=== PATIENT | female | born 1965 | race Caucasian/White ===

== ENCOUNTER 2016-08-27 13:48 | Outpatient (RCR) | payer MEDICARE, MEDICAID ==
--- OUTSIDE RECORDS SUMMARY | 2016-08-13 13:02 | XMS REPORT | Continuity of Care Document ---
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 04/13/14 10:33pm Resuscitation Status Full Code 04/13/14 10:33pm Chief Complaint and Reason for Visit Chief Complaint HHNK, RHABDOMYOLYSIS, PYELONEPHRITIS Reason for Visit Pyelonephritis Rhabdomyolysis Pyelonephritis Hyperglycemic hyperosmolar nonketotic coma Hyperglycemic hyperosmolar nonketotic coma Problems Medical Problems Problem Onset Date Status Urinary tract infectious disease Unknown Active Pancreatitis Unknown Active Pyelonephritis Unknown Active Rhabdomyolysis Unknown Active Pyelonephritis Unknown Active Hyperglycemic hyperosmolar nonketotic coma Unknown Active Hyperglycemic hyperosmolar nonketotic coma Unknown Active Medications Medication Dose Route Sig Days/Qty Instructions Order Date Discontinued Date Status Furosemide 40 Mg PO DAILY PRN SWELLING 04/10/07 Active [Phentermine] 04/10/07 07/05/09 Discontinued Irbesartan 04/10/07 07/05/09 Discontinued Duloxetine HCl 04/10/07 07/05/09 Discontinued Omeprazole DAILY 04/10/07 07/30/11 Discontinued [Lyrica] 04/10/07 07/05/09 Discontinued Acetaminophen/Hydrocodone Bitart 04/10/07 07/05/09 Discontinued Potassium Chloride 04/10/07 04/10/07 Discontinued Oxycodone HCl 04/10/07 07/05/09 Discontinued Triamcinolone Acetonide 04/10/07 07/05/09 Discontinued [Lidocaine] 04/10/07 07/05/09 Discontinued Potassium Chloride 04/10/07 07/05/09 Discontinued Acetaminophen/Hydrocodone Bitart 07/05/09 09/05/10 Discontinued Oxycodone Hcl 07/05/09 09/05/10 Discontinued Duloxetine HCl 30 Mg PO THREE TIMES A DAY 07/05/09 Active Gabapentin THREE TIMES A DAY 07/05/09 07/30/11 Discontinued Insulin Determir 60 Units SQ TWICE A DAY 07/05/09 Active Insulin Lispro Protam/Lispro Human 20 UNITS BID 07/05/09 Discontinued Potassium Chloride 20 Meq PO DAILY 07/05/09 08/02/11 Discontinued Sitagliptin Phosphate 100 Mg PO DAILY 07/05/09 09/21/11 Discontinued Lisinopril (Zestril) 07/05/09 09/05/10 Discontinued Lidocaine 1 Patch TD DAILY PRN 12 hours on, 12 hours off 11/19/0901/06 Discontinued Oxycodone Hcl 40 Mg PO TWICE A DAY 09/05/10 08/02/11 Discontinued Lisinopril (Zestril) 10 Mg PO DAILY 09/05/10 08/02/11 Discontinued Oxycodone/Acetaminophen 1-2 Tab PO EVERY 4HRS PRN PAIN 09/05/1011/20 Discontinued Alprazolam 0.5 Mg PO THREE TIMES A DAY 09/05/10 10/16/12 Discontinued Phentermine Hcl 37.5 Mg PO DAILY 09/05/10 08/02/11 Discontinued Gabapentin 800 Mg PO THREE TIMES A DAY 07/30/11 09/21/11 Discontinued Omeprazole 20 Mg PO DAILY 07/30/11 09/21/11 Discontinued Insulin Lispro 35 Units SQ BID@Noon,Supper 07/30/11 09/21/11 Discontinued Oxycodone HCl 20 Mg PO TWICE A DAY 08/02/11 09/21/11 Discontinued Cefdinir 600 Mg PO DAILY 7 Days 08/02/11 10/16/12 Discontinued Fluconazole 100 Mg PO DAILY 7 Days NEEDED FOR YEAST INFECTION 10/16/12 Discontinued Lisinopril 10 Mg PO DAILY 09/18/11 09/21/11 Discontinued Oxycodone Hcl 10 Mg PO EVERY 12 HOURS 09/21/11 01/09/13 Discontinued Omeprazole 20 Mg PO DAILY 09/21/11 01/23/14 Discontinued Cephalexin Monohydrate (Keflex) 1 Each PO THREE TIMES A DAY 7 Days 03/2101/09/13 Discontinued Fluticasone Propionate 1 [place] TWICE A DAY 01/17/14 Active Atorvastatin Calcium 10 Mg PO DAILY 01/17/14 04/18/14 Discontinued Lisinopril 10 Mg PO DAILY 01/17/14 Active Phentermine Hcl 37.5 Mg PO DAILY 01/17/14 01/23/14 Discontinued Alprazolam 1 Mg PO THREE TIMES A DAY PRN ANXIETY 01/17/14 Active Trazodone Hcl 150 Mg PO BEDTIME 01/17/14 Active [Insulin] 15 Units SC THREE TIMES A DAY PRN WITH MEALS 01/17/1404/22 Discontinued Insulin Lispro 15 Units SQ BEFORE MEALS 01/17/14 Active Albuterol 1-2 Puff INH FOUR TIMES DAILY PRN SHORTNESS OF BREATH 01/17 Active Orphenadrine Citrate 100 Mg PO THREE TIMES A DAY 01/17/14 04/14/14 Discontinued Omeprazole 20 Mg PO TWICE A DAY 30 Days 01/23/14 04/14/14 Discontinued Carvedilol 12.5 Mg PO TWICE A DAY 30 Days 01/23/14 Active [Promethazine Hcl] 25 Mg IV EVERY 4HRS PRN NAUSEA 20 Qty 01/23/1411/20 Discontinued [Polyethylene Glycol] 17 Gm PO BEDTIME 30 Days 01/23/14 04/14/14 Discontinued Oxycodone Hcl/Acetaminophen 2 Each PO EVERY 4HRS 300 Qty 01/23/1411/20 Discontinued Fentanyl 30 Days 04/13/14 04/14/14 Discontinued Fentanyl 75 Mcg TD EVERY 48 HOURS 04/14/14 Active Omeprazole 20 Mg PO DAILY 04/14/14 Active Oxycodone Hcl/Acetaminophen 2 Tab PO EVERY 4HRS PRN PAIN 04/14/14 Active Diphenhydramine HCl (Benadryl) 50 Mg PO BEDTIME PRN SLEEP 04/14/14 04/18/14 Discontinued Polyethylene Glycol 17 Gm PO BEDTIME 04/14/14 Active Social History Social History Problem Response Recorded Date/Time Alcohol Use Denies Use 04/13/2014 10:35pm Recreational Drug Use No 04/13/2014 10:35pm Recent Foreign Travel No 01/17/2014 6:29pm Recent Infectious Disease Exposure No 01/17/2014 6:29pm Hospitalization with Isolation Denies 01/23/2014 2:24pm Sexually Transmitted Disease No 04/13/2014 10:35pm HIV/AIDS No 04/13/2014 10:35pm Smoking Status Current Everyday Smoker 04/13/2014 10:39pm Query Response Start Date Stop Date Smoking Status Current Everyday Smoker Hospital Discharge Instructions Patient Instructions Physician Instructions New, Converted or Re-Newed RX: RX on Chart Plan of Care/Instructions/FU: Fwup 1month Activity as Tolerated: Yes Discharge Diet: Cardiac Diet, Low Sodium Diet Plan of Care Discharge Date 04/18/14 12:00pm Disposition 30 STILL A PATIENT Instructions/Education Provided Rhabdomyolysis (GEN) Hyperosmolar Hyperglycemic State (GEN) Prescriptions See Medications Section Functional Status Query Response Date Recorded Patient Orientation Person Place Time Situation April 18, 2014 3:04pm Comprehension Ability Understands Concepts April 18, 2014 8:00am Allergies, Adverse Reactions, Alerts Allergen Type Severity Reaction Status Last Updated Sulfa (Sulfonamide Antibiotics) ([id number]) Allergy Unknown Active 12/12 Codeine Allergy Mild ITCHING Active 01/17/14 Immunizations Name Given Type Date of Pneumonia Vaccine 06/09/08 Historical Date of Influenza Vaccine 03/09/14 Historical Tetanus Booster (TDap) Less than 5yrs Historical Vital Signs Acute Vital Signs Vital Response Date/Time Temperature (Fahrenheit) 97.1 degrees F (97.6 - 99.5) Temperature (Calculated Celsius) 36.91884 degrees C (36.4 - 37.5) Temperature Source Temporal Pulse Rate (adult) 55 bpm (60 - 90) Respiratory Rate 18 bpm (12 - 24) O2 Sat by Pulse Oximetry 99 % (88 - 100) Blood Pressure 171/81 mm Hg Pain Pain Intensity 3 Height (Feet) 5 feet Height (Inches) 2.00 inches Height (Calculated Centimeters) 157.233612 cm Weight (Pounds) 270 pounds Weight (Calculated Grams) 995575.941 gm Weight (Calculated Kilograms) 122.187472 kilograms Calculated BMI 47.37 Results Test Source Date Result Interp. Ref. Range Comments Acetaminophen Level September 05, 2010 5:37pm < 10 UG/ML L 10.0-30.0 Acetaminophen Screen September 05, 2010 4:40pm POSITIVE H - APAP= ACETAMINOPHEN/PARACETAMOL Activated Partial Thromboplast Time November 19, 2009 6:05pm 34 SEC N 24-35 Alanine Aminotransferase (ALT/SGPT) February 10, 2014 3:06pm 13 U/L N 0 -55 Albumin February 10, 2014 3:06pm 3.7 G/DL N 3.2-4.5 Alkaline Phosphatase February 10, 2014 3:06pm 90 U/L N 40-136 Amylase Level January 17, 2014 10:04am 250 U/L H 25-125 specimen hemolyzed, lab needs to recollect Anisocytosis November 19, 2009 6:05pm SLIGHT - Aspartate Amino Transf (AST/SGOT) February 10, 2014 3:06pm 12 U/L N 5- 34 Atypical Lymphocytes November 19, 2009 6:05pm 0 % - B-Type Natriuretic Peptide December 02, 2011 5:41pm 36.2 PG/ML N 5.0-100.0 BUN/Creatinine Ratio February 10, 2014 3:06pm 13 - Band Neutrophils February 10, 2014 3:06pm 0 % - Basophils # (Auto) February 10, 2014 3:06pm 0.0 10^3/uL N 0.0-0.1 Basophils % (Manual) February 10, 2014 3:06pm 0 % - Basophils (%) (Auto) February 10, 2014 3:06pm 0 % N 0-10 Blood Urea Nitrogen February 10, 2014 3:06pm 18 MG/DL N 7-18 Body Surface Area (Creat Clear) June 25, 2008 9:00am 2.27 - C-Reactive Protein October 16, 2012 11:08pm 1.4 MG/DL H 0.2-0.9 Calcium Level February 10, 2014 3:06pm 9.6 MG/DL N 8.5-10.1 Carbon Dioxide Level February 10, 2014 3:06pm 29 MMOL/L N 21-32 Chloride Level February 10, 2014 3:06pm 100 MMOL/L N 98-107 Cholesterol Level October 29, 2006 9:10am 159 MG/DL N -200 Creatinine February 10, 2014 3:06pm 1.40 MG/DL H 0.60-1.30 Creatinine Clearance June 25, 2008 9:00am 92 ML/MIN N 80-110 D-Dimer April 10, 2007 1:40pm 0.61 UG/ML H 0.00-0.49 Eosinophils # (Auto) February 10, 2014 3:06pm 0.2 10^3/uL N 0.0-0.3 Eosinophils % (Manual) February 10, 2014 3:06pm 0 % - Eosinophils (%) (Auto) February 10, 2014 3:06pm 2 % N 0-10 Erythrocyte Sedimentation Rate December 02, 2011 5:41pm 55 MM/HR H 0-20 Free Thyroxine May 07, 2011 4:20pm 0.69 NG/DL N 0.59-1.17 Glucose Level February 10, 2014 3:06pm 56 MG/DL PL 70-105 RESULTS CALLED TO ALLYSON AT 1550. RESULTS READ BACK:YES. Group A Streptococcus Screen August 09, 2008 10:45pm Negative - Has specimen been collected/obtained? Y HDL Cholesterol October 29, 2006 9:10am 25 MG/DL L 35-60 Hematocrit February 10, 2014 3:06pm 38 % N 35-52 Hemoglobin February 10, 2014 3:06pm 12.7 G/DL N 11.5-16.0 Hemoglobin A1c May 07, 2011 4:20pm 9.8 % H 4.8-6.0 LDL Cholesterol October 29, 2006 9:10am 72 MG/DL N 0-129 Lactic Acid Level November 19, 2009 6:16pm 2.4 MMOL/L PH 0.4-2.0 RESULTS CALLED TO CORNELL AT 1850. RESULTS READ BACK:YES. Lipase February 10, 2014 3:06pm 13 U/L N 8-78 Lymphocytes # (Auto) February 10, 2014 3:06pm 2.7 X 10^3 N 1.0-4.0 Lymphocytes % (Manual) February 10, 2014 3:06pm 34 % - Lymphocytes (%) (Auto) February 10, 2014 3:06pm 28 % N 12-44 Magnesium Level January 17, 2014 10:04am 1.4 MG/DL L 1.8-2.4 specimen hemolyzed, lab needs to recollect Mean Corpuscular Hemoglobin February 10, 2014 3:06pm 31 PG N 25-34 Mean Corpuscular Hemoglobin Concent February 10, 2014 3:06pm 34 G/DL N 32-36 Mean Corpuscular Volume February 10, 2014 3:06pm 91 FL N 80-99 Mean Platelet Volume February 10, 2014 3:06pm 9.8 FL N 7.4-10.4 Metamyelocytes % November 19, 2009 6:05pm 0 % - Monocytes # (Auto) February 10, 2014 3:06pm 0.4 X 10^3 N 0.0-1.0 Monocytes % (Manual) February 10, 2014 3:06pm 7 % - Monocytes (%) (Auto) February 10, 2014 3:06pm 4 % N 0-12 Myelocytes % November 19, 2009 6:05pm 0 % - Myoglobin September 22, 2005 9:10pm 54 UG/L N 10-92 Has specimen been collected/obtained? Y Neutrophils # (Auto) February 10, 2014 3:06pm 6.3 X 10^3 N 1.8-7.8 Neutrophils % (Manual) February 10, 2014 3:06pm 59 % - Neutrophils (%) (Auto) February 10, 2014 3:06pm 65 % N 42-75 Patient Height Inches (Creat Clear) June 25, 2008 9:00am 62 INCHES - Patient Weight Pounds (Creat Clear) June 25, 2008 9:00am 298 LBS - Platelet Count February 10, 2014 3:06pm 313 10^3/uL N 130-400 Polychromasia February 10, 2014 3:06pm SLIGHT - Potassium Level February 10, 2014 3:06pm 4.3 MMOL/L N 3.6-5.0 Promyelocytes % November 19, 2009 6:05pm 0 % - Prothromb Time International Ratio November 19, 2009 6:05pm 1.0 N 0.8-1.4 INTERPRETIVE DATASUGGESTED THERAPEUTIC RANGE FOR INR'S: VENOUS THROMBOSIS, PULMONARY EMBOLISM, OR PREVENTION OF SYSTEMIC EMBOLISM (EG. IN ATRIAL FIBRILLATION): 2.0 - 3.0 MECHANICAL PROSTHETIC HEART VALVES: 2.5 - 3.5* *NOTE: INR'S UP TO 4.5 MAY BE NECESSARY IN SELECTED GROUPS OF HIGH RISK PATIENTS. [employer] CONSENSUS CONFERENCE ON ANTITHROMBOTIC THERAPY (2000). Prothrombin Time November 19, 2009 6:05pm 12.9 SEC N 12.2-14.7 Reactive Lymphocytes November 19, 2009 6:05pm 6 % - Red Blood Count February 10, 2014 3:06pm 4.15 10^6/uL L 4.35-5.85 Red Cell Distribution Width February 10, 2014 3:06pm 13.5 % N 10.0- 14.5 Salicylates Level September 05, 2010 5:37pm 5.8 MG/DL N 2.8-20.0 Serum Test, Qualitative July 06, 2009 5:23am NEGATIVE - Comments to Public Affairs Director: USE BLOOD FROM THIS AM'S SAMPLES Sodium Level February 10, 2014 3:06pm 138 MMOL/L N 135-145 TSH [place] Testing September 05, 2010 5:37pm 1.12 UIU/ML N 0.34-5.60 Thyroid Stimulating Hormone (TSH) May 07, 2011 4:20pm 1.87 UIU/ML N 0.34-5.60 Total Bilirubin February 10, 2014 3:06pm 0.3 MG/DL N 0.1-1.0 Total Protein February 10, 2014 3:06pm 7.7 G/DL N 6.4-8.2 Triglycerides Level October 29, 2006 9:10am 309 MG/DL H 30.0-150.0 Troponin I November 19, 2009 6:05pm < 0.10 NG/ML 0.00-0.10 Ur Tricyclic Antidepressants Screen January 09, 2013 4:50pm NEGATIVE - Urine Amorphous Sediment November 19, 2009 5:54pm FEW [place] URATES H - Has specimen been collected/obtained? YSpecimen Description CLEAN CATCH Urine Amphetamines Screen January 09, 2013 4:50pm POSITIVE H - Urine Bacteria January 17, 2014 9:17am LARGE /HPF H - Has specimen been collected/obtained? YSpecimen Description CLEAN CATCH Urine Barbiturates Screen January 09, 2013 4:50pm NEGATIVE - Urine Benzodiazepines Screen January 09, 2013 4:50pm NEGATIVE - Urine Bilirubin January 17, 2014 9:17am NEGATIVE - Has specimen been collected/obtained? YSpecimen Description CLEAN CATCH Urine Casts January 17, 2014 9:17am NONE /LPF - Has specimen been collected/obtained? YSpecimen Description CLEAN CATCH Urine Clarity January 17, 2014 9:17am CLEAR - Has specimen been collected/obtained? YSpecimen Description CLEAN CATCH Urine Cocaine Screen January 09, 2013 4:50pm NEGATIVE - Urine Collection Time June 25, 2008 9:00am 24 HRS - Urine Color January 17, 2014 9:17am YELLOW - Has specimen been collected/obtained? YSpecimen Description CLEAN CATCH Urine Creatinine June 25, 2008 9:00am 33.8 MG/DL N 30-125 Urine Creatinine 24 Hour June 25, 2008 9:00am 1741 MG/24H H 800-1700 --- 06/26/08 1013 ---UR CREAT 24 previously reported as: Test not performed MG/24H Urine Crystals January 17, 2014 9:17am NONE /LPF - Has specimen been collected/obtained? YSpecimen Description CLEAN CATCH Urine Culture Indicated January 17, 2014 9:17am YES - Has specimen been collected/obtained? YSpecimen Description CLEAN CATCH Urine Glucose (UA) January 17, 2014 9:17am 4+ H - Has specimen been collected/obtained? YSpecimen Description CLEAN CATCH Urine Hyaline Casts November 19, 2009 5:54pm 0-2 H - Has specimen been collected/obtained? YSpecimen Description CLEAN CATCH Urine Ketones January 17, 2014 9:17am NEGATIVE - Has specimen been collected/obtained? YSpecimen Description CLEAN CATCH Urine Leukocyte Esterase January 17, 2014 9:17am 2+ H - Has specimen been collected/obtained? YSpecimen Description CLEAN CATCH Urine Methamphetamines Screen January 09, 2013 4:50pm NEGATIVE - Urine Mucus January 17, 2014 9:17am NEGATIVE /LPF - Has specimen been collected/obtained? YSpecimen Description CLEAN CATCH Urine Nitrate May 28, 2007 12:25pm Negative - Has specimen been collected/obtained? YSpecimen Description CLEAN CATCH Urine Nitrite January 17, 2014 9:17am NEGATIVE - Has specimen been collected/obtained? YSpecimen Description CLEAN CATCH Urine Opiates Screen January 09, 2013 4:50pm POSITIVE H - Urine Phencyclidine Screen January 09, 2013 4:50pm NEGATIVE - Urine Test September 05, 2010 4:40pm NEGATIVE - Urine Propoxyphene Screen January 09, 2013 4:50pm NEGATIVE - Urine Protein January 17, 2014 9:17am 3+ H - Has specimen been collected /obtained? YSpecimen Description CLEAN CATCH Urine RBC January 17, 2014 9:17am 2-5 /HPF H - Has specimen been collected/obtained? YSpecimen Description CLEAN CATCH Urine Specific [place] January 17, 2014 9:17am 1.010 L - Has specimen been collected/obtained? YSpecimen Description CLEAN CATCH Urine Squamous Epithelial Cells January 17, 2014 9:17am 5-10 /HPF - Has specimen been collected/obtained? YSpecimen Description CLEAN CATCH Urine Total Protein 24 Hour June 25, 2008 9:00am 1066.0 MG/24H H 0- 149 Urine Total Volume June 25, 2008 9:00am 5150 ML - Urine Urobilinogen January 17, 2014 9:17am NORMAL MG/DL - Has specimen been collected/obtained? YSpecimen Description CLEAN CATCH Urine WBC January 17, 2014 9:17am TNTC /HPF H - Has specimen been collected/obtained? YSpecimen Description CLEAN CATCH Urine Yeast September 18, 2011 2:00pm FEW H - Has specimen been collected/ obtained? YSpecimen Description CLEAN CATCH Urine pH January 17, 2014 9:17am 5 - Has specimen been collected/ obtained? YSpecimen Description CLEAN CATCH VLDL Cholesterol October 29, 2006 9:10am 62 MG/DL H 5-40 White Blood Count February 10, 2014 3:06pm 9.7 10^3/uL N 4.3-11.0 Pathology Consult Specimen September 22, 2005 9:10pm See report - Has specimen been collected/obtained? Y Serum Alcohol January 09, 2013 4:40pm < 5 MG/DL -5 Glucometer January 23, 2014 11:02am 248 MG/DL H 70-110 Lab Scanned Report May 27, 2012 9:04am LAB Reports [id number] - Smear Scan January 15, 2006 12:38am Yes - VERIFIED BY SCAN OF SMEAR. Estimat Glomerular Filtration Rate February 10, 2014 3:06pm 40 - GFR INTERPRETIVE DATA UNITS FOR ESTIMATED GFR (eGFR): mL/min/1.73 M2 REFERENCE RANGE FOR ESTIMATED GFR (eGFR) eGFR NORMAL eGFR >60 MODERATELY DECREASED eGFR 30-59 SEVERLY DECREASED eGFR 15-29 KIDNEY FAILURE <15 (OR DIALYSIS) Urine Total Protein mg/dL June 25, 2008 9:00am 20.7 MG/DL H 6-12 Urine Oxycodone Screen January 09, 2013 4:50pm POSITIVE H - Urine Methadone Screen January 09, 2013 4:50pm NEGATIVE - Creatine Kinase September 23, 2005 8:43am 88 mg/dl N 21-140 Urine Cannabinoids Screen January 09, 2013 4:50pm POSITIVE H - Urine Buprenorphine January 09, 2013 4:50pm NEGATIVE - Urine RBC (Auto) January 17, 2014 9:17am 1+ H - Has specimen been collected/obtained? YSpecimen Description CLEAN CATCH Blood Culture Peripheral-Lt Ac July 29, 2011 5:55pm No growth MRSA Screen Nasal July 06, 2009 7:15pm MRSA not isolated Urine Culture Urine-Clean Catch January 17, 2014 9:17am Klebsiella Pneumoniae Gram Stain Body Site, Not Otherwise Spec.-Gallbladder, Nos July 07, 2009 10:16am Procedures Procedure Status Date Provider(s) Tracing only of electrocardiogram completed 04/13/14 BRITTNEY CARTER SE[employer]ER Encounters Encounter Location Date/Time Discharged Inpatient Via [facility] 04/13/14 6:55pm Recent Diagnosis Pyelonephritis Rhabdomyolysis Pyelonephritis Hyperglycemic hyperosmolar nonketotic coma Hyperglycemic hyperosmolar nonketotic coma
[~2016-08-27 13:48] MED LIST: ALBU8.5H2 INH; ALPR1T PO; ALPR1TAB2 PO; ASPI-999 PO; ATOR10TA PO; CARV12.5 PO; CARV12.53 PO; CEFD300C16 PO; CEPH500C PO; CLIN300C11 PO; CLON1TAB27 PO; CYAN10006 PO; DIPH25TA82 PO; DULO30CA; DULO30CA PO; DULO30CA48 PO; FENT1PAT2 TD; FENT1PAT3; FLC100T1 PO; FLT05NA16 NS; FLUC100T PO; FLUC100T6 PO; FLUT16SP22 NS; FLUT16SP22 NSEACH; FRSM40T PO; FURO40TA4 PO; GABA-488 PO; GABA800T PO; GABA800T2; HYDR-32; HYDR-3720; HYDR-3720 PO; INSU100I23 SQ; INSU100I3; INSU100I5 SQ; INSU100V5 SC; INSU100V5 SQ; INSULIN SC; IRB150T; KCL20TCR; KCL20TCR PO; LD5PT TD; LEVO500T69 PO; LIDOCAINE; LISI10TA PO; LISI10TA2 PO; LISI20TA; LYRICA; OMEP-10 PO; OMEP20CA12; OMEP20CA12 PO; ONDA4TAB2 PO; ORPH100T PO; OXC20TCR PO; OXC40TCR; OXYC-465 PO; OXYC10TA63 PO; OXYC10TA7 PO; OXYC1TAB17 PO; OXYC1TAB95 PO; OXYC40TA49 PO; OXYC5TAB71 PO; OXYC60TA9; Oxycodone Hcl PO; PHEN37.555 PO; PHEN37.582 PO; PHENTERMINE; POLY17PO23 PO; POTA8TAB6 PO; PROMETHAZINE HCL IV; Polyethylene Glycol PO; RSP2T PO; SITA100T PO; TR1O15; TRAZ150T42 PO; ZOLP12.5; [UNRECOGNIZED DRUG - CODE] SQ; [UNRECOGNIZED DRUG - CODE] TP
== END 2016-08-30 13:27 | disposition home or self-care (01) ==
PROVIDERS: ATTEND Family Medicine
DX: M51.16 Intervertebral disc disorders with radiculopathy, lumbar region (principal)

== ENCOUNTER → 2016-10-11 | Outpatient (CLI) | payer MEDICARE, MEDICAID ==
[2016-10-11 08:19] LABS: BASOPHILS % (AUTO) 0 % (0-10); EOSINOPHILS # (AUTO) 0.3 10^3/uL (0.0-0.3); EOSINOPHILS % (AUTO) 2 % (0-10); LYMPHOCYTES # (AUTO) 4.5 X 10^3 (1.0-4.0); LYMPHOCYTES % (AUTO) 35 % (12-44); MEAN CORPUSCULAR HEMOGLOBIN 29 PG (25-34); MEAN CORPUSCULAR HGB CONC 36 G/DL (32-36); MEAN CORPUSCULAR VOLUME 82 FL (80-99); MEAN PLATELET VOLUME 10.2 FL (7.4-10.4); MONOCYTES # (AUTO) 0.5 X 10^3 (0.0-1.0); MONOCYTES % (AUTO) 4 % (0-12); NEUTROPHILS # (AUTO) 7.4 X 10^3 (1.8-7.8); NEUTROPHILS % (AUTO) 58 % (42-75); PLATELET COUNT 418 10^3/uL (130-400); RED BLOOD COUNT 4.57 10^6/uL (4.35-5.85); RED CELL DISTRIBUTION WIDTH 12.9 % (10.0-14.5); WHITE BLOOD COUNT 12.7 10^3/uL (4.3-11.0)
[2016-10-11 08:42] LABS: ALBUMIN 3.8 G/DL (3.2-4.5); BILIRUBIN,TOTAL 0.6 MG/DL (0.1-1.0); CALCIUM 9.8 MG/DL (8.5-10.1); CREATININE SERUM 1.51 MG/DL (0.60-1.30); POTASSIUM 3.5 MMOL/L (3.6-5.0); TOTAL PROTEIN 8.2 G/DL (6.4-8.2)
[2016-10-11 09:03] LABS: THYROID STIMULATING HORMONE 2.78 UIU/ML (0.35-4.94)
--- NOTE | 2016-10-11 14:57 | Diagnostic Imaging Report ---
PROCEDURE: CT right lower extremity without contrast. TECHNIQUE: Axially acquired CT was obtained through the right lower extremity without intravenous contrast. Coronal and sagittal reformations were also performed. INDICATION: Right thigh pain x1 week. No acute trauma indicated. FINDINGS: Noncontrasted images of the right femur and soft tissues. Femoral head is in normal articulation with the acetabulum. Mild degenerative changes of the articulating surface is noted. No evidence of cortical fracture. Neck and trochanteric region are intact. Femoral shaft appears normal. The femoral condyles are intact with good alignment of the tibia. Joint spaces well preserved. No soft tissue calcifications are seen along the greater trochanter. The soft tissues throughout the thigh appear normal with quadriceps and hamstring muscles showing normal definition. No findings to indicate fasciitis. IMPRESSION: 1. No evidence of bony fractures or periosteal reactive changes to suggest osteomyelitis. 2. Soft tissues appear normal with no evidence of fasciitis. Dictated by: Dictated on workstation # [id number]
[2016-10-14 08:01] LABS: VITAMIN D 25-HYDROXY (TOTAL) 5 ng/mL (30-100)
== END ==
LOC: LAB 07:47
PROVIDERS: ATTEND Family Medicine
DX: E10.9 Type 1 diabetes mellitus without complications (principal); E55.9 Vitamin D deficiency, unspecified; M79.651 Pain in right thigh; R53.83 Other fatigue; G62.9 Polyneuropathy, unspecified; D64.9 Anemia, unspecified
CPT/HCPCS: 36415; 73700; 80053; 80061; 82306; 82607; 83036; 84439; 84443; 85025

== ENCOUNTER 2016-12-05 18:56 | Emergency (ER) | payer MEDICARE, MEDICAID ==
[~2016-12-05] VITALS: Ht 157.5 cm; Wt 102.1 kg
--- OUTSIDE RECORDS SUMMARY | 2016-12-05 19:05 | XMS REPORT | Continuity of Care Document ---
Author Author [facility] Address Unknown Phone Unavailable Allergies Active Description Code Type Severity Reaction Onset Reported/Identified Relationship to Patient Clinical Status Yes Sulfa (Sulfonamide Antibiotics) [id number] Drug Allergy Unknown N/A 09/13/2005 Yes codeine [id number] Drug Allergy Mild ITCHING 01/17/2014 Medications Problems Date Dx Coded Attending Type Code Diagnosis Diagnosed By 05/08/1326 MIRELA LYLE DO Ot M51.16 INTERVERTEBRAL DISC DISORDERS W RADICULO 12/16/2008 Ot 722.52 12/16/2008 Ot V57.1 08/07/2009 HEATHER CESPEDES PSYD 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 08/07/2009 HEATHER CESPEDES PSYD 300.00 AN ANXIETY UNSPEC 08/07/2009 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 08/07/2009 300.00 AN ANXIETY UNSPEC 08/07/2009 JHONATAN KRAMER DDS 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 08/07/2009 JHONATAN KRAMER DDS 300.00 AN ANXIETY UNSPEC 08/07/2009 HEATHER CESPEDES PSYD 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 08/07/2009 HEATHER CESPEDES PSYD 300.00 AN ANXIETY UNSPEC 09/20/2009 HEATHER CESPEDES PSYD 296.32 MO DEPRESSIVE RECURRENT MODERATE 09/20/2009 HEATHER CESPEDES PSYD 300.21 AN PANIC DIS W AGORA 09/20/2009 296.32 MO DEPRESSIVE RECURRENT MODERATE 09/20/2009 300.21 AN PANIC DIS W AGORA 09/20/2009 JHONATAN KRAMER DDS 296.32 MO DEPRESSIVE RECURRENT MODERATE 09/20/2009 JHONATAN KRAMER DDS 300.21 AN PANIC DIS W AGORA 09/20/2009 HEATHER CESPEDES PSYD 296.32 MO DEPRESSIVE RECURRENT MODERATE 09/20/2009 HEATHER CESPEDES PSYD 300.21 AN PANIC DIS W AGORA 09/23/2009 Ot 611.89 09/23/2009 Ot V76.12 10/05/2009 HEATHER CESPEDES PSYD 300.02 AN GEN ANXIETY 10/05/2009 300.02 AN GEN ANXIETY 10/05/2009 JHONATAN KRAMER DDS 300.02 AN GEN ANXIETY 10/05/2009 HEATHER CESPEDES PSYD 300.02 AN GEN ANXIETY 10/31/2009 Ot 599.0 10/31/2009 Ot 789.09 11/19/2009 Ot 038.9 11/19/2009 Ot 250.00 11/19/2009 Ot 401.9 11/19/2009 Ot 584.9 11/19/2009 Ot 599.0 11/19/2009 Ot 729.5 11/19/2009 Ot 780.60 11/19/2009 Ot 995.92 11/19/2009 Ot V58.67 11/19/2009 Ot V58.69 02/20/2010 HEATHER CESPEDES PSYD 296.33 MO DEPRESSIVE RECURRENT SEVERE W/O PSYCHOTIC BEHAVIOR 02/20/2010 296.33 MO DEPRESSIVE RECURRENT SEVERE W/O PSYCHOTIC BEHAVIOR 02/20/2010 JHONATAN KRAMER DDS 296.33 MO DEPRESSIVE RECURRENT SEVERE W/O PSYCHOTIC BEHAVIOR 02/20/2010 HEATHER CESPEDES PSYD 296.33 MO DEPRESSIVE RECURRENT SEVERE W/O PSYCHOTIC BEHAVIOR 09/05/2010 Ot 250.00 DIAB SEGUNDO WO COMPL, TYPE II OR UNSPEC TY 09/05/2010 Ot 300.4 DYSTHYMIC DISORDER 09/05/2010 Ot 311 DEPRESSIVE DISORDER NEC 09/05/2010 Ot 401.9 HYPERTENSION NOS 09/05/2010 Ot V58.67 LONG-TERM (CURRENT) USE OF INSULIN 09/05/2010 Ot V58.69 OTH MED,LT,CURRENT USE 09/05/2010 Ot V62.84 SUICIDAL IDEATION 08/02/2011 Ot 250.62 DIAB W NEURO MANIFEST, TYPE II OR UNSPEC 08/02/2011 Ot 278.01 MORBID OBESITY 08/02/2011 Ot 300.00 ANXIETY STATE NOS 08/02/2011 Ot 305.1 TOBACCO USE DISORDER 08/02/2011 Ot 311 DEPRESSIVE DISORDER NEC 08/02/2011 Ot 357.2 NEUROPATHY IN DIABETES 08/02/2011 Ot 403.90 HYPTNSV CHR KID DIS, UNSPEC, W CHR KD ST 08/02/2011 Ot 477.9 ALLERGIC RHINITIS NOS 08/02/2011 Ot 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 08/02/2011 Ot 585.9 CHRONIC KIDNEY DISEASE, UNSPECIFIED 08/02/2011 Ot 593.9 RENAL URETERAL DIS NOS 08/02/2011 Ot 599.0 URIN TRACT INFECTION NOS 08/02/2011 Ot 682.6 CELLULITIS OF LEG 08/02/2011 Ot 722.52 LUMB/LUMBOSAC DISC DEGEN 08/02/2011 Ot 780.52 INSOMNIA, UNSPECIFIED 08/02/2011 Ot V03.82 PROPHYLACTIC VACC AGAINST STREPTOCOCCUS 08/02/2011 Ot V58.69 OTH MED,LT,CURRENT USE 08/02/2011 Ot V85.42 BODY MASS INDEX 45.0-49.9, ADULT 09/21/2011 Ot 250.62 DIAB W NEURO MANIFEST, TYPE II OR UNSPEC 09/21/2011 Ot 278.01 MORBID OBESITY 09/21/2011 Ot 300.00 ANXIETY STATE NOS 09/21/2011 Ot 305.1 TOBACCO USE DISORDER 09/21/2011 Ot 311 DEPRESSIVE DISORDER NEC 09/21/2011 Ot 357.2 NEUROPATHY IN DIABETES 09/21/2011 Ot 403.90 HYPTNSV CHR KID DIS, UNSPEC, W CHR KD ST 09/21/2011 Ot 496 CHR AIRWAY OBSTRUCT NEC 09/21/2011 Ot 585.9 CHRONIC KIDNEY DISEASE, UNSPECIFIED 09/21/2011 Ot 599.0 URIN TRACT INFECTION NOS 09/21/2011 Ot 722.52 LUMB/LUMBOSAC DISC DEGEN 09/21/2011 Ot 780.52 INSOMNIA, UNSPECIFIED 09/21/2011 Ot 780.79 OTH MALAISE FATIGUE 09/21/2011 Ot E935.2 ADV EFF OPIATES 09/21/2011 Ot E937.8 ADV EFF SEDAT/HYPNOT NEC 09/21/2011 Ot E939.4 ADV EFF BENZODIAZ TRANQ 09/21/2011 Ot V85.42 BODY MASS INDEX 45.0-49.9, ADULT 07/29/2012 Ot 327.23 OBSTRUCTIVE SLEEP APNEA (ADULT) (PEDIATR 07/29/2012 Ot 401.9 HYPERTENSION NOS 10/17/2012 ARGENT[place] CAMPOS, SUE A Ot 682.6 CELLULITIS OF LEG 10/17/2012 [place] CAMPOS, SUE [place] Ot 729.81 SWELLING OF LIMB 10/17/2012 [place] CAMPOS, SUE Obregon Ot 786.05 SHORTNESS OF BREATH 10/17/2012 [place] CAMPOS, SUE Obregon Ot 793.19 OTHER NONSPECIFIC ABNORMAL FINDING OF MARISA 01/09/2013 ROMARIO DUMONT DO Ot 250.00 DIAB SEGUNDO WO COMPL, TYPE II OR UNSPEC TY 01/09/2013 ROMARIO DUMONT DO Ot 780.79 OTH MALAISE FATIGUE 01/09/2013 ROMARIO DUMONT DO Ot 965.09 POISONING-OPIATES NEC 01/09/2013 ROMARIO DUMONT DO Ot E850.2 ACC POISON-OPIATES NEC 02/17/2013 V06.1 TDAP DX 02/17/2013 JHONATAN KRAMER DDS V06.1 TDAP DX 01/23/2014 VALDO DO, MIRELA S Ot 041.02 BACTERIAL INFECTION DUE TO STREPTOCOCCUS 01/23/2014 VALDO DO MIRELA S Ot 041.3 KLEBSIELLA PNEUMONIAE 01/23/2014 VALDO MARTINEZ, MIRELA S Ot 250.02 DIAB SEGUNDO WO COMPL, TYPE II OR UNSPEC TY 01/23/2014 YANENDER DO, MIRELA S Ot 272.0 PURE HYPERCHOLESTEROLEM 01/23/2014 ORENDER DO, MIRELA S Ot 276.1 HYPOSMOLALITY 01/23/2014 YANENDER DO, MIRELA S Ot 300.00 ANXIETY STATE NOS 01/23/2014 YANENDER DO, MIRELA S Ot 305.1 TOBACCO USE DISORDER 01/23/2014 YANENDSTEVAN DO, MIRELA S Ot 311 DEPRESSIVE DISORDER NEC 01/23/2014 YANENDER DO, MIRELA S Ot 338.29 OTHER CHRONIC PAIN 01/23/2014 ORENDER DO, MIRELA S Ot 401.9 HYPERTENSION NOS 01/23/2014 YANENDER DO, MIRELA S Ot 496 CHR AIRWAY OBSTRUCT NEC 01/23/2014 YANENDER DO, MIRELA S Ot 530.81 ESOPHAGEAL REFLUX 01/23/2014 YANENDER DO, MIRELA S Ot 564.00 UNSPEC CONSTIPATION 01/23/2014 ORENDER DO, MIRELA S Ot 577.0 ACUTE PANCREATITIS 01/23/2014 ORENDER DO, MIRELA S Ot 599.0 URIN TRACT INFECTION NOS 01/23/2014 VALDO MARTINEZ MIRELA S Ot 724.5 BACKACHE NOS 01/23/2014 PAVEL LYLE DOQUELINE S Ot 780.57 UNSPECIFIED SLEEP APNEA 01/23/2014 VALDO MARTINEZ MIRELA S Ot 784.0 HEADACHE 01/23/2014 VALDO MARTINEZ MIRELA S Ot 788.30 UNSPECIFIED URINARY INCONTINENCE 01/23/2014 PAVEL LYLE DOQUELINE S Ot V58.67 LONG-TERM (CURRENT) USE OF INSULIN 04/18/2014 VALDO MARTINEZ MIRELA S Ot 038.9 SEPTICEMIA NOS 04/18/2014 VALDO MARTINEZ MIRELA S Ot 250.22 DIAB W HYPEROSMOLARITY, TYPE II OR UNSPE 04/18/2014 VALDO MARTINEZ MIRELA S Ot 272.0 PURE HYPERCHOLESTEROLEM 04/18/2014 VALDO MARTINEZ MIRELA S Ot 276.9 ELECTROLYT/FLUID DIS NEC 04/18/2014 PAVEL LYLE DOQUELINE S Ot 300.00 ANXIETY STATE NOS 04/18/2014 VALDO MARTINEZ MIRELA S Ot 305.1 TOBACCO USE DISORDER 04/18/2014 PAVEL LYLE DOQUELINE S Ot 311 DEPRESSIVE DISORDER NEC 04/18/2014 PAVEL LYLE DOQUELINE S Ot 338.29 OTHER CHRONIC PAIN 04/18/2014 PAVEL LYLE DOQUELINE S Ot 355.9 MONONEURITIS NOS 04/18/2014 PAVEL LYLE DOQUELINE S Ot 401.9 HYPERTENSION NOS 04/18/2014 VALDO MARTINEZ MIRELA S Ot 530.81 ESOPHAGEAL REFLUX 04/18/2014 VALDO MARTINEZ MIRELA S Ot 584.9 ACUTE RENAL FAILURE, UNSPECIFIED 04/18/2014 VALDO MARTINEZ MIRELA S Ot 590.10 AC PYELONEPHRITIS NOS 04/18/2014 VALDO MARTINEZ MIRELA S Ot 724.5 BACKACHE NOS 04/18/2014 VALDO MARTINEZ MIRELA S Ot 728.88 RHABDOMYOLYSIS 04/18/2014 VALDO MARTINEZ MIRELA S Ot 729.5 PAIN IN LIMB 04/18/2014 VALDO MARTINEZ MIRELA S Ot 995.92 SEVERE SEPSIS 04/18/2014 ADELA LYLE DOLINE S Ot V15.81 HX OF PAST NONCOMPLIANCE 04/18/2014 ADELA LYLE DOLINE S Ot V58.67 LONG-TERM (CURRENT) USE OF INSULIN 04/25/2014 Ot 722.52 04/25/2014 Ot 577.0 04/25/2014 Ot 577.0 04/25/2014 Ot 790.6 04/25/2014 Ot 577.0 04/25/2014 Ot 250.00 04/25/2014 Ot 599.0 04/25/2014 Ot 682.9 04/25/2014 Ot 401.9 04/25/2014 Ot 782.3 04/25/2014 Ot 786.09 04/25/2014 Ot 786.2 04/25/2014 Ot 729.1 04/25/2014 Ot 780.79 04/25/2014 EVELIO WHELAN NEW HOME SALES CONSULTANT Ot 729.5 04/25/2014 EVELIO WHELAN NEW HOME SALES CONSULTANT Ot 959.19 04/25/2014 EVELIO WHELAN NEW HOME SALES CONSULTANT Ot E000.8 04/25/2014 EVELIO WHELAN NEW HOME SALES CONSULTANT Ot E849.0 04/25/2014 EVELIO WHELAN NEW HOME SALES CONSULTANT Ot E888.9 04/25/2014 LIZANDRO GRANADOS Ot 305.1 04/25/2014 LIZANDRO GRANADOS Ot 786.09 04/25/2014 LIZANDRO GRANADOS Ot 793.11 04/25/2014 VALDO MARTINEZ MIRELA S Ot 722.52 04/25/2014 VALDO MARTINEZ MIRELA S Ot 722.10 04/25/2014 VALDO MIRELA S Ot 722.52 04/25/2014 VALDO MIRELA S Ot 793.7 04/25/2014 VALDO MIRELA S Ot 722.52 04/25/2014 VALDO MIRELA S Ot 577.0 08/01/2014 Ot 250.00 08/01/2014 Ot 305.1 08/01/2014 Ot 311 08/01/2014 Ot 496 08/01/2014 Ot 965.09 08/01/2014 Ot 969.4 08/01/2014 Ot 970.81 08/01/2014 Ot 250.00 08/01/2014 Ot 305.1 08/01/2014 Ot 311 08/01/2014 Ot 496 08/01/2014 Ot 965.09 08/01/2014 Ot 969.4 08/01/2014 Ot 970.81 08/02/2014 Ot 250.00 DIAB SEGUNDO WO COMPL, TYPE II OR UNSPEC TY 08/02/2014 Ot 272.0 PURE HYPERCHOLESTEROLEM 08/02/2014 Ot 278.00 OBESITY, NOS 08/02/2014 Ot 300.00 ANXIETY STATE NOS 08/02/2014 Ot 305.1 TOBACCO USE DISORDER 08/02/2014 Ot 305.60 COCAINE ABUSE-UNSPEC 08/02/2014 Ot 311 DEPRESSIVE DISORDER NEC 08/02/2014 Ot 338.29 OTHER CHRONIC PAIN 08/02/2014 Ot 355.9 MONONEURITIS NOS 08/02/2014 Ot 401.9 HYPERTENSION NOS 08/02/2014 Ot 496 CHR AIRWAY OBSTRUCT NEC 08/02/2014 Ot 530.81 ESOPHAGEAL REFLUX 08/02/2014 Ot 724.5 BACKACHE NOS 08/02/2014 Ot 780.57 UNSPECIFIED SLEEP APNEA 08/02/2014 Ot 780.97 ALTERED MENTAL STATUS 08/02/2014 Ot 786.50 CHEST PAIN NOS 08/02/2014 Ot 965.09 POISONING-OPIATES NEC 08/02/2014 Ot 969.4 POIS-BENZODIAZEPINE BAIRD 08/02/2014 Ot 970.81 POISONING BY COCAINE 08/02/2014 Ot E850.2 ACC POISON-OPIATES NEC 08/02/2014 Ot E853.2 ACC POISN-BENZDIAZ TRANQ 08/02/2014 Ot E854.3 ACC POISON-OPERATOR BEARER SYSTEMS STIMULANT 08/02/2014 Ot V12.79 PERSONAL HISTORY OTH SPEC DIGESTIVE SYST 08/02/2014 Ot V58.67 LONG-TERM (CURRENT) USE OF INSULIN 08/02/2014 Ot V85.41 BODY MASS INDEX 40.0-44.9, ADULT 08/17/2014 FABIAN ALEJANDRO MD Ot 111.8 DERMATOMYCOSES NEC 08/17/2014 FABIAN ALEJANDRO MD Ot 278.01 MORBID OBESITY 08/17/2014 FABIAN ALEJANDRO MD Ot 305.1 TOBACCO USE DISORDER 08/17/2014 FABIAN ALEJANDRO MD Ot 692.89 DERMATITIS NEC 08/17/2014 FLAVIA CAMPOS, FABIAN Marcus Ot 707.8 CHRONIC SKIN ULCER NEC 09/12/2014 WILLIAMS CAMPOS, ELISA Griffith Ot 722.52 LUMB/LUMBOSAC DISC DEGEN 09/23/2014 [facility] 250.02 09/23/2014 [facility]LA S Ot 272.0 09/23/2014 [facility]LA S Ot 300.00 09/23/2014 [facility]LA S Ot 305.1 09/23/2014 [facility] MI[facility]LA S Ot 311 09/23/2014 [facility]LA S Ot 338.29 09/23/2014 [facility]LA S Ot 355.9 09/23/2014 [facility]LA S Ot 401.9 09/23/2014 [facility]LA S Ot 477.9 09/23/2014 [facility] MIRELA S Ot 496 09/23/2014 [facility]LA S Ot 530.81 09/23/2014 [facility]LA S Ot 577.0 09/23/2014 [facility] MI[facility]LA S Ot 722.52 09/23/2014 [facility] MI[facility]LA S Ot V12.69 09/23/2014 [facility] MI[facility]LA S Ot V13.02 09/23/2014 [facility] MI[facility]LA S Ot V15.81 09/23/2014 [facility]LA S Ot V58.67 09/26/2014 [facility] MI[facility]LA S Ot 250.02 DIAB SEGUNDO WO COMPL, TYPE II OR UNSPEC TY 09/26/2014 [facility]LA S Ot 272.0 PURE HYPERCHOLESTEROLEM 09/26/2014 [facility]LA S Ot 300.00 ANXIETY STATE NOS 09/26/2014 [facility]LA S Ot 305.1 TOBACCO USE DISORDER 09/26/2014 [facility] MI[facility]LA S Ot 311 DEPRESSIVE DISORDER NEC 09/26/2014 YANEND DO, MIRELA S Ot 338.29 OTHER CHRONIC PAIN 09/26/2014 YANEND DO, MIRELA S Ot 355.9 09/26/2014 MIRELA LYLE DO Ot 401.9 HYPERTENSION NOS 09/26/2014 MIRELA LYLE DO Ot 477.9 ALLERGIC RHINITIS NOS 09/26/2014 YANEOKMIRELA CALLES DO Ot 496 CHR AIRWAY OBSTRUCT NEC 09/26/2014 MIRELA LYLE DO Ot 530.81 ESOPHAGEAL REFLUX 09/26/2014 MIRELA LYLE DO Ot 576.2 OBSTRUCTION OF BILE DUCT 09/26/2014 [facility] MIRELA MARTINEZ Ot 577.0 ACUTE PANCREATITIS 09/26/2014 [facility] MIRELA MARTINEZ Ot 593.9 RENAL URETERAL DIS NOS 09/26/2014 MIRELA LYLE DO Ot 722.52 LUMB/LUMBOSAC DISC DEGEN 09/26/2014 MIRELA LYLE DO Ot V03.82 PROPHYLACTIC VACC AGAINST STREPTOCOCCUS 09/26/2014 MIRELA LYLE DO Ot V12.69 PERSONAL HISTORY, OTHER DISEASES OF RESP 09/26/2014 BARBARA MIRELA MARTINEZ Ot V13.02 PERSONAL HISTORY, URINARY (TRACT) INFECT 09/26/2014 BARBARA MIREAL MARTINEZ Ot V15.81 HX OF PAST NONCOMPLIANCE 09/26/2014 MIRELA LYLE DO Ot V58.67 LONG-TERM (CURRENT) USE OF INSULIN 10/06/2014 Ot 577.0 10/06/2014 Ot 577.0 10/06/2014 Ot 790.6 10/06/2014 Ot 577.0 10/06/2014 Ot 250.00 10/06/2014 Ot 599.0 10/06/2014 Ot 682.9 10/06/2014 Ot 401.9 10/06/2014 Ot 782.3 10/06/2014 Ot 786.09 10/06/2014 Ot 786.2 10/06/2014 Ot 729.1 10/06/2014 Ot 780.79 10/06/2014 EVELIO WHELAN APRN Ot 729.5 10/06/2014 EVELIO WHELAN APRN Ot 959.19 10/06/2014 EVELIO WHELAN APRN Ot E000.8 10/06/2014 EVELIO WHELAN APRN Ot E849.0 10/06/2014 EVELIO WHELAN NEW HOME SALES CONSULTANT Ot E888.9 10/06/2014 LIZANDRO GRANADOS Ot 305.1 10/06/2014 LIZANDRO GRANADOS Ot 786.09 10/06/2014 LIZANDRO GRANADOS Ot 793.11 10/06/2014 ORENDER DO, MIRELA S Ot 722.52 10/06/2014 ORENDER DO, MIRELA S Ot 722.10 10/06/2014 ORENDER DO, MIRELA S Ot 722.52 10/06/2014 ORENDER DO, MIRELA S Ot 793.7 10/06/2014 ORENDER DO, MIRELA S Ot 722.52 10/06/2014 ORENDER DO, MIRELA S Ot 577.0 11/05/2014 ORENDER DO, MIRELA S Ot 789.00 12/13/2014 Ot 577.0 12/13/2014 Ot 577.0 12/13/2014 Ot 790.6 12/13/2014 Ot 577.0 12/13/2014 Ot 250.00 12/13/2014 Ot 599.0 12/13/2014 Ot 682.9 12/13/2014 Ot 401.9 12/13/2014 Ot 782.3 12/13/2014 Ot 786.09 12/13/2014 Ot 786.2 12/13/2014 Ot 729.1 12/13/2014 Ot 780.79 12/13/2014 EVELIO WHELAN NEW HOME SALES CONSULTANT Ot 729.5 12/13/2014 EVELIO WHELAN NEW HOME SALES CONSULTANT Ot 959.19 12/13/2014 EVELIO WHELAN NEW HOME SALES CONSULTANT Ot E000.8 12/13/2014 EVELIO WHELAN NEW HOME SALES CONSULTANT Ot E849.0 12/13/2014 EVELIO WHELAN NEW HOME SALES CONSULTANT Ot E888.9 12/13/2014 LIZANDRO GRANADOS Ot 305.1 12/13/2014 LIZANDRO GRANADOS Ot 786.09 12/13/2014 LIZANDRO GRANADOS Ot 793.11 12/13/2014 ORENDER DO, MIRELA S Ot 722.52 12/13/2014 [facility] Ot 722.10 12/13/2014 [facility]LA S Ot 722.52 12/13/2014 [facility]LA S Ot 793.7 12/13/2014 YANENDER DO, MIRELA S Ot 722.52 12/13/2014 YANEND DO, MIRELA S Ot 577.0 12/13/2014 [facility] S Ot 789.00 01/11/2015 [facility]LA S Ot 250.00 01/11/2015 [facility] DO, MIRELA S Ot 577.0 01/11/2015 [facility] DO, MIRELA S Ot 780.79 01/24/2015 [facility] DO, MIRELA S Ot 250.00 01/24/2015 [facility] S Ot 577.0 01/24/2015 [facility]LA S Ot 780.79 04/21/2015 [facility] Ot E11.65 TYPE 2 DIABETES MELLITUS WITH HYPERGLYCE 04/21/2015 [facility] DO, MIRELA S Ot E78.0 PURE HYPERCHOLESTEROLEMIA 04/21/2015 YANEND DO, MIRELA S Ot E87.1 HYPO-OSMOLALITY AND HYPONATREMIA 04/21/2015 [facility] DO, MIRELA S Ot E87.5 HYPERKALEMIA 04/21/2015 YANEND , MIRELA S Ot F17.210 NICOTINE DEPENDENCE, CIGARETTES, UNCOMPL 04/21/2015 YANEASHLEY MIRELA S Ot G47.30 SLEEP APNEA, UNSPECIFIED 04/21/2015 YANEND DO, MIRELA S Ot I10 ESSENTIAL (PRIMARY) HYPERTENSION 04/21/2015 YANEND MIRELA S Ot J44.9 CHRONIC OBSTRUCTIVE PULMONARY DISEASE , U 04/21/2015 YANENDER DO MIRELA S Ot L03.115 CELLULITIS OF RIGHT LOWER LIMB 04/21/2015 YANEND DO MIRELA S Ot L03.116 CELLULITIS OF LEFT LOWER LIMB 04/21/2015 YANENDER MIRELA S Ot N28.9 DISORDER OF KIDNEY AND URETER, UNSPECIFI 04/21/2015 ORENDER DO, MIRELA S Ot R47.81 SLURRED SPEECH 04/21/2015 YANENDER DO, MIRELA S Ot T40.2X1A POISONING BY OTH OPIOIDS, ACCIDENTAL (UN 04/21/2015 ORENDER DO, MIRELA S Ot Z79.4 MENAGERIE CARETAKER (CURRENT) USE OF INSULIN 05/04/2015 ROSINA NEGRON Ot F17.210 NICOTINE DEPENDENCE, CIGARETTES, UNCOMPL 05/04/2015 ROSINA NEGRON Ot H53.2 DIPLOPIA 05/04/2015 ROSINA NEGRON Ot H93.13 TINNITUS, BILATERAL 06/15/2015 Ot 250.00 06/15/2015 Ot 599.0 06/15/2015 Ot 682.9 06/15/2015 Ot 401.9 06/15/2015 Ot 782.3 06/15/2015 Ot 786.09 06/15/2015 Ot 786.2 06/15/2015 Ot 729.1 06/15/2015 Ot 780.79 06/15/2015 EVELIO WHELAN NEW HOME SALES CONSULTANT Ot 729.5 06/15/2015 EVELIO WHELAN NEW HOME SALES CONSULTANT Ot 959.19 06/15/2015 EVELIO WHELAN NEW HOME SALES CONSULTANT Ot E000.8 06/15/2015 EVELIO WHELAN NEW HOME SALES CONSULTANT Ot E849.0 06/15/2015 EVELIO WHELAN NEW HOME SALES CONSULTANT Ot E888.9 06/15/2015 LIZANDRO GRANADOS Ot 305.1 06/15/2015 LIZANDRO GRANADOS OPTION TRADER Ot 786.09 06/15/2015 LIZANDRO GRANADOS OPTION TRADER Ot 793.11 06/15/2015 ORENDER DO, MIRELA S Ot 722.52 06/15/2015 ORENDER DO, MIRELA S Ot 722.10 06/15/2015 ORENDER DO, MIRELA S Ot 722.52 06/15/2015 ORENDER DO, MIRELA S Ot 793.7 06/15/2015 ORENDER DO, MIRELA S Ot 722.52 06/15/2015 YANENDER DO, MIRELA S Ot 577.0 06/15/2015 YANENDER DO, MIRELA S Ot 789.00 06/15/2015 ADELA LYLE DOLINE S Ot 250.00 06/15/2015 ADELA LYLE DOLINE S Ot 577.0 06/15/2015 ADELA LYLE DOLINE S Ot 780.79 07/10/2015 ADELA LYLE DOLINE S Ot H53.9 07/10/2015 ADELA LYLE DOLINE S Ot R42 08/18/2015 Ot R10.9 09/12/2015 Ot R10.9 09/18/2015 Ot R10.9 12/27/2015 Ot 250.00 DIAB SEGUNDO WO COMPL, TYPE II OR UNSPEC TY 12/27/2015 Ot 599.0 URIN TRACT INFECTION NOS 12/27/2015 Ot 682.9 CELLULITIS NOS 12/27/2015 Ot 401.9 HYPERTENSION NOS 12/27/2015 Ot 782.3 EDEMA 12/27/2015 Ot 786.09 RESPIRATORY ABNORM NEC 12/27/2015 Ot 786.2 COUGH 12/27/2015 Ot 729.1 MYALGIA AND MYOSITIS NOS 12/27/2015 Ot 780.79 OTH MALAISE FATIGUE 12/27/2015 EVELIO WHELAN NEW HOME SALES CONSULTANT Ot 729.5 PAIN IN LIMB 12/27/2015 EVELIO WHELAN NEW HOME SALES CONSULTANT Ot 959.19 OTH INJURY OF OTHER SITES OF TRUNK 12/27/2015 EVELIO WHELAN NEW HOME SALES CONSULTANT Ot E000.8 OTHER EXTERNAL CAUSE STATUS 12/27/2015 EVELIO WHELAN NEW HOME SALES CONSULTANT Ot E849.0 ACCIDENT IN HOME 12/27/2015 EVELIO WHELAN NEW HOME SALES CONSULTANT Ot E888.9 FALL NOS 12/27/2015 LIZANDRO GRANADOS OPTION TRADER Ot 305.1 TOBACCO USE DISORDER 12/27/2015 LIZANDRO GRANADOS OPTION TRADER Ot 786.09 RESPIRATORY ABNORM NEC 12/27/2015 LIZANDRO GRANADOSP Ot 793.11 SOLITARY PULMONARY NODULE 12/27/2015 YANENDSTEVNA ADELA MARTINEZLINE S Ot 722.52 LUMB/LUMBOSAC DISC DEGEN 12/27/2015 ADELA LYLE DOLINE S Ot 722.10 LUMBAR DISC DISPLACEMENT 12/27/2015 YANENDADELA CALLES DOLINE S Ot 722.52 LUMB/LUMBOSAC DISC DEGEN 12/27/2015 VALDO MARTINEZ MIRELA S Ot 793.7 NOSP (ABN) FINDINGS ON RADIOLOGICAL OT 12/27/2015 YANENDER , MIRELA S Ot 722.52 LUMB/LUMBOSAC DISC DEGEN 12/27/2015 YANENDER , MIRELA S Ot 577.0 ACUTE PANCREATITIS 12/27/2015 YANENDER DO, MIRELA S Ot 789.00 ABDOMINAL PAIN, UNSPECIFIED SITE 12/27/2015 YANENDER DO, MIRELA S Ot 250.00 DIAB SEGUNDO WO COMPL, TYPE II OR UNSPEC TY 12/27/2015 YANENDER DO, MIRELA S Ot 577.0 ACUTE PANCREATITIS 12/27/2015 YANENDER DO, MIRELA S Ot 780.79 OTH MALAISE FATIGUE 12/27/2015 BARBARAER , MIRELA S Ot H53.9 UNSPECIFIED VISUAL DISTURBANCE 12/27/2015 YANENDER , MIRELA S Ot R42 DIZZINESS AND GIDDINESS 12/27/2015 Ot R10.9 UNSPECIFIED ABDOMINAL PAIN 12/27/2015 Ot 250.00 DIAB SEGUNDO WO COMPL, TYPE II OR UNSPEC TY 12/27/2015 Ot 599.0 URIN TRACT INFECTION NOS 12/27/2015 Ot 682.9 CELLULITIS NOS 12/27/2015 Ot 401.9 HYPERTENSION NOS 12/27/2015 Ot 782.3 EDEMA 12/27/2015 Ot 786.09 RESPIRATORY ABNORM NEC 12/27/2015 Ot 786.2 COUGH 12/27/2015 Ot 729.1 MYALGIA AND MYOSITIS NOS 12/27/2015 Ot 780.79 OTH MALAISE FATIGUE 12/27/2015 EVELIO WHELAN [employer] SALES CONSULTANT Ot 729.5 PAIN IN LIMB 12/27/2015 EVELIO WHELAN [employer] HOME SALES CONSULTANT Ot 959.19 OTH INJURY OF OTHER SITES OF TRUNK 12/27/2015 EVELIO WHELAN [employer] HOME SALES CONSULTANT Ot E000.8 OTHER EXTERNAL CAUSE STATUS 12/27/2015 EVELIO WHELAN [employer] HOME SALES CONSULTANT Ot E849.0 ACCIDENT IN HOME 12/27/2015 EVELIO WHELAN [employer] HOME SALES CONSULTANT Ot E888.9 FALL NOS 12/27/2015 LIZANDRO GRANADOSP Ot 305.1 TOBACCO USE DISORDER 12/27/2015 LIZANDRO GRANADOSP Ot 786.09 RESPIRATORY ABNORM NEC 12/27/2015 LIZANDRO GRANADOS OPTION TRADER Ot 793.11 SOLITARY PULMONARY NODULE 12/27/2015 YANENDER DO, MIRELA S Ot 722.52 LUMB/LUMBOSAC DISC DEGEN 12/27/2015 YANENDER , MIRELA S Ot 722.10 LUMBAR DISC DISPLACEMENT 12/27/2015 YANENDER DO, MIRELA S Ot 722.52 LUMB/LUMBOSAC DISC DEGEN 12/27/2015 YANENDSTEVAN MARTINEZ, MIRELA S Ot 793.7 NOSP (ABN) FINDINGS ON RADIOLOGICAL OT 12/27/2015 YANENDER , MIRELA S Ot 722.52 LUMB/LUMBOSAC DISC DEGEN 12/27/2015 YANENDSTEVAN MARTINEZ, MIRELA S Ot 577.0 ACUTE PANCREATITIS 12/27/2015 VALDO MARTINEZ, MIRELA S Ot 789.00 ABDOMINAL PAIN, UNSPECIFIED SITE 12/27/2015 YANENDSTEVAN MARTINEZ, MIRELA S Ot 250.00 DIAB SEGUNDO WO COMPL, TYPE II OR UNSPEC TY 12/27/2015 ADELA LYLE DOLINE S Ot 577.0 ACUTE PANCREATITIS 12/27/2015 VALDO MARTINEZ, MIRELA S Ot 780.79 OTH MALAISE FATIGUE 12/27/2015 ADELA LYLE DOLINE S Ot H53.9 UNSPECIFIED VISUAL DISTURBANCE 12/27/2015 ADELA LYLE DOLINE S Ot R42 DIZZINESS AND GIDDINESS 12/27/2015 Ot R10.9 UNSPECIFIED ABDOMINAL PAIN 06/25/2016 Ot 250.00 DIAB SEGUNDO WO COMPL, TYPE II OR UNSPEC TY 06/25/2016 Ot 599.0 URIN TRACT INFECTION NOS 06/25/2016 Ot 682.9 CELLULITIS NOS 06/25/2016 Ot 401.9 HYPERTENSION NOS 06/25/2016 Ot 782.3 EDEMA 06/25/2016 Ot 786.09 RESPIRATORY ABNORM NEC 06/25/2016 Ot 786.2 COUGH 06/25/2016 Ot 729.1 MYALGIA AND MYOSITIS NOS 06/25/2016 Ot 780.79 OTH MALAISE FATIGUE 06/25/2016 EVELIO WHELAN APRN Ot 729.5 PAIN IN LIMB 06/25/2016 EVELIO WHELAN APRN Ot 959.19 OTH INJURY OF OTHER SITES OF TRUNK 06/25/2016 CLEOPATRA, EVELIO R [employer] HOME SALES CONSULTANT Ot E000.8 OTHER EXTERNAL CAUSE STATUS 06/25/2016 EVELIO WHELAN [employer] HOME SALES CONSULTANT Ot E849.0 ACCIDENT IN HOME 06/25/2016 EVELIO WHELAN [employer] HOME SALES CONSULTANT Ot E888.9 FALL NOS 06/25/2016 JARRELLLIZANDRO BHARDWAJ OPTION TRADER Ot 305.1 TOBACCO USE DISORDER 06/25/2016 LIZANDRO GRANADOS OPTION TRADER Ot 786.09 RESPIRATORY ABNORM NEC 06/25/2016 LIZANDRO GRANADOS OPTION TRADER Ot 793.11 SOLITARY PULMONARY NODULE 06/25/2016 YANENDER DOPAVELMIRELA S Ot 722.52 LUMB/LUMBOSAC DISC DEGEN 06/25/2016 YANENDPAVEL CALLES DOQUELINE S Ot 722.10 LUMBAR DISC DISPLACEMENT 06/25/2016 YANENDER DO MIRELA S Ot 722.52 LUMB/LUMBOSAC DISC DEGEN 06/25/2016 YANENDER PAVEL MARTINEZMIRELA S Ot 793.7 NOSP (ABN) FINDINGS ON RADIOLOGICAL OT 06/25/2016 YANENDPAVEL CALLES DOQUELINE S Ot 722.52 LUMB/LUMBOSAC DISC DEGEN 06/25/2016 YANENDPAVEL CALLES DOQUELINE S Ot 577.0 ACUTE PANCREATITIS 06/25/2016 PAVEL LYLE DOQUELINE S Ot 789.00 ABDOMINAL PAIN, UNSPECIFIED SITE 06/25/2016 PAVEL LYLE DOQUELINE S Ot 250.00 DIAB SEGUNDO WO COMPL, TYPE II OR UNSPEC TY 06/25/2016 PAVEL LYLE DOQUELINE S Ot 577.0 ACUTE PANCREATITIS 06/25/2016 ADELA LYLE DOLINE S Ot 780.79 OTH MALAISE FATIGUE 06/25/2016 PAVEL LYLE DOQUELINE S Ot H53.9 UNSPECIFIED VISUAL DISTURBANCE 06/25/2016 YANENDPAVEL CALLES DOQUELINE S Ot R42 DIZZINESS AND GIDDINESS 06/25/2016 Ot R10.9 UNSPECIFIED ABDOMINAL PAIN 08/30/2016 PAVEL LYLE DOQUELINE S Ot M51.16 INTERVERTEBRAL DISC DISORDERS W RADICULO 10/11/2016 Ot 250.00 DIAB SEGUNDO WO COMPL, TYPE II OR UNSPEC TY 10/11/2016 Ot 599.0 URIN TRACT INFECTION NOS 10/11/2016 Ot 682.9 CELLULITIS NOS 10/11/2016 Ot 401.9 HYPERTENSION NOS 10/11/2016 Ot 782.3 EDEMA 10/11/2016 Ot 786.09 RESPIRATORY ABNORM NEC 10/11/2016 Ot 786.2 COUGH 10/11/2016 Ot 729.1 MYALGIA AND MYOSITIS NOS 10/11/2016 Ot 780.79 OTH MALAISE FATIGUE 10/11/2016 EVELIO WHELAN [employer] SALES CONSULTANT Ot 729.5 PAIN IN LIMB 10/11/2016 EVELIO WHELAN [employer] HOME SALES CONSULTANT Ot 959.19 OTH INJURY OF OTHER SITES OF TRUNK 10/11/2016 EVELIO WHELAN NEW HOME SALES CONSULTANT Ot E000.8 OTHER EXTERNAL CAUSE STATUS 10/11/2016 EVELIO WHELAN NEW HOME SALES CONSULTANT Ot E849.0 ACCIDENT IN HOME 10/11/2016 EVELIO WHELAN NEW HOME SALES CONSULTANT Ot E888.9 FALL NOS 10/11/2016 LIZANDRO GRANADOS OPTION TRADER Ot 305.1 TOBACCO USE DISORDER 10/11/2016 LIZANDRO GRANADOS OPTION TRADER Ot 786.09 RESPIRATORY ABNORM NEC 10/11/2016 LIZANDRO GRANADOS OPTION TRADER Ot 793.11 SOLITARY PULMONARY NODULE 10/11/2016 ADELA LYLE DOLINE S Ot 722.52 LUMB/LUMBOSAC DISC DEGEN 10/11/2016 ADELA LYLE DOLINE S Ot 722.10 LUMBAR DISC DISPLACEMENT 10/11/2016 ADELA LYLE DOLINE S Ot 722.52 LUMB/LUMBOSAC DISC DEGEN 10/11/2016 ADELA LYLE DOLINE S Ot 793.7 NOSP (ABN) FINDINGS ON RADIOLOGICAL OT 10/11/2016 ADELA LYLE DOLINE S Ot 722.52 LUMB/LUMBOSAC DISC DEGEN 10/11/2016 ADELA LYLE DOLINE S Ot 577.0 ACUTE PANCREATITIS 10/11/2016 ADELA LYLE DOLINE S Ot 789.00 ABDOMINAL PAIN, UNSPECIFIED SITE 10/11/2016 ADELA LYLE DOLINE S Ot 250.00 DIAB SEGUNDO WO COMPL, TYPE II OR UNSPEC TY 10/11/2016 ADELA LYLE DOLINE S Ot 577.0 ACUTE PANCREATITIS 10/11/2016 ADELA LYLE DOLINE S Ot 780.79 OTH MALAISE FATIGUE 10/11/2016 ORENDER DO, MIRELA Christiansen Ot H53.9 UNSPECIFIED VISUAL DISTURBANCE 10/11/2016 ORENDER DO, MIRELA S Ot R42 DIZZINESS AND GIDDINESS 10/11/2016 Ot R10.9 UNSPECIFIED ABDOMINAL PAIN 10/11/2016 ORENDER DO, MIRELA S Ot E10.9 TYPE 1 DIABETES MELLITUS WITHOUT COMPLIC 10/11/2016 ORENDER DO, MIRELA S Ot E55.9 VITAMIN D DEFICIENCY, UNSPECIFIED 10/11/2016 ORENDER DO, MIRELA S Ot E10.9 TYPE 1 DIABETES MELLITUS WITHOUT COMPLIC 10/11/2016 ORENDER DO, MIRELA S Ot E55.9 VITAMIN D DEFICIENCY, UNSPECIFIED 10/11/2016 ORENDER DO, MIRELA S Ot E10.9 TYPE 1 DIABETES MELLITUS WITHOUT COMPLIC 10/11/2016 ORENDER DO, MIRELA S Ot E55.9 VITAMIN D DEFICIENCY, UNSPECIFIED 10/14/2016 ORENDER DO, MIRELA Christiansen Ot D64.9 ANEMIA, UNSPECIFIED 10/14/2016 ORENDER DO, MIRELA S Ot E10.9 TYPE 1 DIABETES MELLITUS WITHOUT COMPLIC 10/14/2016 ORENDER DO, MIRELA S Ot E55.9 VITAMIN D DEFICIENCY, UNSPECIFIED 10/14/2016 ORENDER DO, MIRELA S Ot G62.9 POLYNEUROPATHY, UNSPECIFIED 10/14/2016 ORENDER DO, MIRELA S Ot M79.651 PAIN IN RIGHT THIGH 10/14/2016 ORENDER DO, MIRELA S Ot R53.83 OTHER FATIGUE 11/01/2016 ORENDER DO, MIRELA S Ot D64.9 ANEMIA, UNSPECIFIED 11/01/2016 ORENDER DO, MIRELA S Ot E10.9 TYPE 1 DIABETES MELLITUS WITHOUT COMPLIC 11/01/2016 ORENDER DO, MIRELA Christiansen Ot E55.9 VITAMIN D DEFICIENCY, UNSPECIFIED 11/01/2016 ORENDER DO, MIRELA Kuldip Ot G62.9 POLYNEUROPATHY, UNSPECIFIED 11/01/2016 ORENDER DO, MIRELA S Ot M79.651 PAIN IN RIGHT THIGH 11/01/2016 ORENDER DO, MIRELA S Ot R53.83 OTHER FATIGUE 11/11/2016 MIRELA LYLE DO Ot D64.9 ANEMIA, UNSPECIFIED 11/11/2016 MIRELA LYLE DO Ot E10.9 TYPE 1 DIABETES MELLITUS WITHOUT COMPLIC 11/11/2016 MIRELA LYLE DO Ot E55.9 VITAMIN D DEFICIENCY, UNSPECIFIED 11/11/2016 MIRELA LYLE DO Ot G62.9 POLYNEUROPATHY, UNSPECIFIED 11/11/2016 MIRELA LYLE DO Ot M79.651 PAIN IN RIGHT THIGH 11/11/2016 MIRELA LYLE DO Ot R53.83 OTHER FATIGUE Procedures Code Description Performed By Performed On 51.23 LAPAROSCOPIC CHOLECYSTECTOMY 07/07/2009 87.53 INTRAOPER CHOLANGIOGRAM 07/07/2009 22412 INDIV PSYTX 45/50 MIN 04/20/2012 51.85 ENDOSCOPIC SPHINCTEROTOMY AND PAPILLOTOM 09/23/2014 52.93 ENDOSC INSERT OF STENT INTO PANCREATIC D 09/23/2014 Results Test Result Range Complete blood count (CBC) with automated white blood cell (WBC) differential - 10/11/16 08:11 Blood leukocytes automated count (number/volume) 12.7 10*3/ uL 4.3-11.0 Blood erythrocytes automated count (number/volume) 4.57 10*6 /uL 4.35-5.85 Venous blood hemoglobin measurement (mass/volume) 13.3 g/dL 11.5-16.0 Blood hematocrit (volume fraction) 37 % 35-52 Automated erythrocyte mean corpuscular volume 82 [foz_us] 80-99 Automated erythrocyte mean corpuscular hemoglobin (mass per erythrocyte) 29 pg 25-34 Automated erythrocyte mean corpuscular hemoglobin concentration measurement ( mass/volume) 36 g/dL 32-36 Automated erythrocyte distribution width ratio 12.9 % 10.0-14.5 Automated blood platelet count (count/volume) 418 10*3/uL 130-400 Automated blood platelet mean volume measurement 10.2 [foz_ us] 7.4-10.4 Automated blood neutrophils/100 leukocytes 58 % 42-75 Automated blood lymphocytes/100 leukocytes 35 % 12-44 Blood monocytes/100 leukocytes 4 % 0-12 Automated blood eosinophils/100 leukocytes 2 % 0-10 Automated blood basophils/100 leukocytes 0 % 0-10 Blood neutrophils automated count (number/volume) 7.4 10*3 1.8-7.8 Blood lymphocytes automated count (number/volume) 4.5 10*3 1.0-4.0 Blood monocytes automated count (number/volume) 0.5 10*3 0.0-1.0 Automated eosinophil count 0.3 10*3/uL 0.0-0.3 Automated blood basophil count (count/volume) 0.0 10*3/uL 0.0-0.1 Comprehensive metabolic panel - 10/11/16 08:11 Serum or plasma sodium measurement (moles/volume) 133 mmol/ L 135-145 Serum or plasma potassium measurement (moles/volume) 3.5 mmol/L 3.6-5.0 Serum or plasma chloride measurement (moles/volume) 96 mmol/ L 98-107 Carbon dioxide 23 mmol/L 21-32 Serum or plasma anion gap determination (moles/volume) 14 mmol/L 5-14 Serum or plasma urea nitrogen measurement (mass/volume) 15 mg/dL 7-18 Serum or plasma creatinine measurement (mass/volume) 1.51 mg /dL 0.60-1.30 Serum or plasma urea nitrogen/creatinine mass ratio 10 NRG Serum or plasma creatinine measurement with calculation of estimated glomerular filtration rate 37 NRG Serum or plasma glucose measurement (mass/volume) 172 mg/dL 70-105 Serum or plasma calcium measurement (mass/volume) 9.8 mg/dL 8.5-10.1 Serum or plasma total bilirubin measurement (mass/volume) 0.6 mg/dL 0.1-1.0 Serum or plasma alkaline phosphatase measurement (enzymatic activity/volume) 133 U/L 40-136 Serum or plasma aspartate aminotransferase measurement (enzymatic activity/ volume) 14 U/L 5-34 Serum or plasma alanine aminotransferase measurement (enzymatic activity/volume ) 15 U/L 0-55 Serum or plasma protein measurement (mass/volume) 8.2 g/dL 6.4-8.2 Serum or plasma albumin measurement (mass/volume) 3.8 g/dL 3.2-4.5 Lipid 1996 panel - 10/11/16 08:11 Serum or plasma triglyceride measurement (mass/volume) 271 mg/dL <150 Serum or plasma cholesterol measurement (mass/volume) 250 mg /dL < 200 Serum or plasma cholesterol in HDL measurement (mass/volume) 31 mg/dL 40-60 Cholesterol in LDL [mass/volume] in serum or plasma by direct assay 174 mg/dL 1-129 Serum or plasma cholesterol in VLDL measurement (mass/volume) 54 mg/dL 5-40 Hemoglobin A1c - 10/11/16 08:11 Hemoglobin A1c 12.2 % 4.5-6.2 THYROID STIMULATING HORMONE - 10/11/16 08:11 THYROID STIMULATING HORMONE 2.78 u[iU]/mL 0.35-4.94 Serum or plasma thyroxine (T4) free measurement (mass/volume) - 10/11/16 08:11 Serum or plasma thyroxine (T4) free measurement (mass/volume) 1.34 ng/dL 0.70-1.48 Cyanocobalamin measurement - 10/11/16 08:11 Vitamin B12 1341 pg/mL 200-1000 25-hydroxyvitamin D measurement - 10/11/16 08:11 25-hydroxy vitamin D measurement 5 % 30- 100 Encounters ACCT No. Visit Date/Time Discharge Status Pt. Type Provider Facility Loc./Unit Complaint [id number] 06/22/2013 12:50:00 06/22/2013 23: 59:59 CLS Outpatient JHONATAN KRAMER DDS [id number] 04/20/2012 12:58:00 04/20/2012 23: 59:59 CLS Outpatient HEATHER CESPEDES PSYD [id number] 04/20/2012 12:58:00 04/20/2012 23:59: 59 CLS Outpatient HEATHER CESPEDES PSYD [id number] 02/17/2013 09:55:00 Document Registration
[2016-12-05] MEDS ORDERED: LIDOCAINE 2% 20 ML (XYLOCAINE) VIAL ONE (19:20)
[2016-12-05] MEDS ORDERED: DOXYCYCLINE 100 MG (VIBRAMYCIN) TABLET PO SCH (19:30)
[2016-12-05] MEDS ORDERED: LIDOCAINE PF 2% 20 ML (XYLOCAINE) AMP INJ ONE (19:30)
--- NOTE | 2016-12-05 19:37 | ED Integumentary General ---
General Chief Complaint: Bite-Animal/Human/Insect Stated Complaint: POSS SPIDER BITE ON RT LEG Nursing Triage Note: patient reports was bit by a spider friday night on R thigh Source: patient Exam Limitations: no limitations History of Present Illness Time seen by provider: 19:35 Initial Comments To ER with a source 5 to the posterior right thigh that began about a week ago. She reports chills. She also is a diabetic and states that her sugars have been higher than usual but she's not checked them today. She believes she felt a spider on her but did not see anything. Timing/Duration: week Severity: moderate Associated Symptoms: denies symptoms Allergies and Home Medications Allergies Coded Allergies: codeine (Verified Allergy, Mild, ITCHING, 01/17/14) Sulfa (Sulfonamide Antibiotics) (Verified Allergy, Unknown, 09/13/05) Home Medications Albuterol Sulfate 8.5 Gm Aer.w.adap, 1-2 PUFF INH QID PRN for SHORTNESS OF BREATH, (Reported) Aspirin 81 Mg Tab.chew, 81 MG PO DAILY, (Reported) Carvedilol 12.5 Mg Tablet, 25 MG PO BID, #120 LAST FILLED 11/28/14 #60 Prescribed by: MIRELA LYLE on 04/21/15928 Clindamycin HCl 300 Mg Capsule, 300 MG PO TID, #30 Prescribed by: MIRELA LYLE on 04/21/15928 Duloxetine HCl 30 Mg Capsule.dr, 30 MG PO TID, (Reported) Fluconazole 100 Mg Tablet, 100 MG PO EVERY AFTERNOON, (Reported) FILLED 04/16/15 FOR 7 DAY THERAPY Fluticasone Propionate 16 Gm [place].susp, 2 SPR NSEACH DAILY, (Reported) LAST FILLED 06/11/14 #1 Insulin Determir 1,000 Units/10 Ml Soln, 50 UNITS SQ BID, (Reported) Insulin Lispro 100 Unit/1 Ml Insuln.pen, 15 UNITS SQ AC, (Reported) LAST FILLED 10/28/14 30 ML Omeprazole 20 Mg Capsule.dr, 20 MG PO BID, (Reported) LAST FILLED 02/03/15 #60 Oxycodone HCl 10 Mg Tablet, 10 MG PO QID PRN for PAIN, #120 Prescribed by: MIRELA LYLE on 04/21/15928 Constitutional: see HPI EENTM: see HPI Respiratory: no symptoms reported Cardiovascular: no symptoms reported Genitourinary: no symptoms reported Musculoskeletal: no symptoms reported Skin: see HPI Psychiatric/Neurological: No Symptoms Reported Endocrine: No Symptoms Reported Past Kxbidsp-Iwllcp-Nxoqiu Hx Patient Social History Alcohol Use: Denies Use Recreational Drug Use: No Smoking Status: Current Everyday Smoker Type Used: Cigarettes Recent Foreign Travel: No Contact w/Someone Who Travel: No Recent Infectious Disease Expo: No Recent Hopitalizations: No Immunizations Up To Date Tetanus Booster (TDap): Less than 5yrs Date of Pneumonia Vaccine: Jun 09, 2008 Date of Influenza Vaccine: Mar 29, 2015 Seasonal Allergies Seasonal Allergies: Yes Surgeries HX Surgeries: Yes (Left breast cyst, x2, ORIF Right ankle) Surgeries: Section, Gallbladder, Orthopedic, Tubal Ligation Respiratory Hx Respiratory Disorders: Yes (CPAP not used after last sleep study) Respiratory Disorders: Sleep Apnea, COPD Cardiovascular Hx Cardiac Disorders: Yes Cardiac Disorders: Chronic Edema/Swelling, High Cholesterol, Hypertension Neurological Hx Neurological Disorders: Yes Neurological Disorders: Neuropathy 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 System Hx 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 Disorders: No Sexually Transmitted Disease: No HIV/AIDS: No 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 Disorders: 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 Genitourinary Hx Genitourinary Disorders: Yes Genitourinary Disorders: Renal Failure, UTI-Chronic Gastrointestinal Hx Gastrointestinal Disorders: Yes Gastrointestinal Disorders: Gastroesophageal Reflux, Pancreatitis Musculoskeletal Hx Musculoskeletal Disorders: Yes (right ankle fx with steel plate) Musculoskeletal Disorders: Degenerate Disk Disease, Chronic Back Pain Endocrine Hx Endocrine Disorders: Yes Endocrine Disorders: Diabetes, Insulin dep HEENT HX ENT Disorders: No Cancer Hx Cancer: No Psychosocial Hx Psychiatric Problems: Yes Behavioral Health Disorders: Sleep Difficulties, Anxiety, Depression Integumentary HX Skin/Integumentary Disorder: Yes (FREQUENT CELLULITIS--LEGS) Skin/Integumentary Disorders: Recent Skin Changes Blood Transfusions Hx Blood Disorders: No Adverse Reaction to a Blood Tr: No Family Medical History Significant Family History: No Pertinent Family Hx Family Medial History: Completed stroke 19 FATHER Congenital heart disease 19 FATHER Diabetes mellitus 19 FATHER Myocardial infarction 19 FATHER Psychosocial problem 19 FATHER (depression) 19 MOTHER (depression) Respiratory disorder 19 MOTHER (copd) Physical Exam Vital Signs Vital Sign - Last 12Hours 12/05/16 19:08 Temp 96.7 Pulse 70 Resp 18 B/P (MAP) 180/101 O2 Delivery Room Air Capillary Refill : Less Than 3 Seconds General Appearance: WD/WN, no apparent distress HEENT: PERRL/EOMI, normal ENT inspection Neck: non-tender, full range of motion Respiratory: no respiratory distress, no accessory muscle use Gastrointestinal: non tender, soft Neurologic/Psychiatric: alert, normal mood/affect, oriented x 3 Skin: normal color, warm/dry Skin Problem Character: abscess Comments Area of fluctuance to the posterior right thigh about 2-3 cm in diameter. There is some induration here as well. There is a small punctum in the middle. Surrounding this is another 4-5 cm of erythema without induration or fluctuance. I&D : Blade Size: 11 I & D Procedure: betadine prep Progress Moderate amount of purulent material was expressed. Culture collected and sent to lab. Progress/Results/Core Measures Results/Orders My Orders Orders - BRITTNEY CARTER APRN Doxycycline Hyclate Tablet (Vibramycin T (12/05/16 19:30) Lidocaine 2% Pf 20 Ml (Xylocaine 2% Pf) (12/05/16 19:30) Lidocaine 2% Injection 20 Ml (Xylocaine (12/05/16 19:20) Accucheck Stat ONCE (12/05/16 19:34) Medications Given in ED Current Medications Medications Dose Ordered Sig/Amy Route Start Time Stop Time Status Last Admin Dose Admin Lidocaine HCl 20 ml ONCE ONCE INJ 12/05/16 19:30 12/05/16 19:31 DC 12/05/16 19:38 20 ML Vital Signs/I&O Vital Sign - Last 12Hours 12/05/16 19:08 Temp 96.7 Pulse 70 Resp 18 B/P (MAP) 180/101 O2 Delivery Room Air Blood Pressure Mean: 127 Departure Impression Impression: Primary Impression: Abscess of right thigh Disposition: HOME, SELF-CARE Condition: Stable Departure-Patient Inst. Decision time for Depature: 19:37 Referrals: MIRELA LYLE DO (PCP/Family) Primary Care Physician Patient Instructions: ABSCESS Add. Discharge Instructions: 1. Return to ER for any concerns 2. Keep a close eye on your sugars. Take insulin as needed to keep the sugars under control All discharge instructions reviewed with patient and/or family. Voiced understanding. Scripts Doxycycline Hyclate (Doxycycline Hyclate) 100 Mg Capsule 100 MG PO BID, #14 CAP Prov: BRITTNEY CARTER APRN 12/05/16 BRITTNEY CARTER APRN Dec 05, 2016 19:37
[2016-12-05] MEDS ORDERED: DOXY100C2 PO (19:47)
[2016-12-05 19:50] VITALS: BP 168/98
== END 2016-12-05 19:49 | disposition home or self-care (01) ==
LOC: EDUNIT# 18:56 → ER 18:59
DX: L02.415 Cutaneous abscess of right lower limb (principal); E11.9 Type 2 diabetes mellitus without complications; I10 Essential (primary) hypertension; E78.00 Pure hypercholesterolemia, unspecified; J44.9 Chronic obstructive pulmonary disease, unspecified; K21.9 Gastro-esophageal reflux disease without esophagitis; Z79.4 Long term (current) use of insulin
CPT/HCPCS: 82962; 87070; 87205; 99283

== ENCOUNTER 2017-02-27 12:42 | Emergency (ER) | payer MEDICARE, MEDICAID ==
[~2017-02-27] VITALS: Ht 157.5 cm; Wt 102.1 kg
[~2017-02-27 12:42] MED LIST changes: +DOXY100C2 PO
[2017-02-27] MEDS ORDERED: DEXTROSE 50% 50 ML (IMS) SYR ONE (12:49)
[2017-02-27] MEDS: DEXTROSE 50% 50 ML (IMS) SYR IV ONE (12:50)
[2017-02-27 13:05] LABS: BASOPHILS % (AUTO) 0 % (0-10); EOSINOPHILS # (AUTO) 0.1 10^3/uL (0.0-0.3); EOSINOPHILS % (AUTO) 2 % (0-10); LYMPHOCYTES # (AUTO) 1.8 X 10^3 (1.0-4.0); LYMPHOCYTES % (AUTO) 21 % (12-44); MEAN CORPUSCULAR HEMOGLOBIN 29 PG (25-34); MEAN CORPUSCULAR HGB CONC 34 G/DL (32-36); MEAN CORPUSCULAR VOLUME 85 FL (80-99); MEAN PLATELET VOLUME 10.2 FL (7.4-10.4); MONOCYTES # (AUTO) 0.5 X 10^3 (0.0-1.0); MONOCYTES % (AUTO) 6 % (0-12); NEUTROPHILS # (AUTO) 6.1 X 10^3 (1.8-7.8); NEUTROPHILS % (AUTO) 71 % (42-75); PLATELET COUNT 249 10^3/uL (130-400); RED BLOOD COUNT 3.88 10^6/uL (4.35-5.85); RED CELL DISTRIBUTION WIDTH 13.9 % (10.0-14.5); WHITE BLOOD COUNT 8.6 10^3/uL (4.3-11.0)
[2017-02-27] MEDS ORDERED: D5 NS 1000 ML IV SOLUTION 1,000 ML IV ONE (13:11)
[2017-02-27 13:17] LABS: ALCOHOL < 10 MG/DL (<10); ANION GAP 10 MMOL/L (5-14); BLOOD UREA NITROGEN 16 MG/DL (7-18); BUN/CREATININE RATIO 14; CARBON DIOXIDE 23 MMOL/L (21-32); CHLORIDE 102 MMOL/L (98-107); CREATININE SERUM 1.11 MG/DL (0.60-1.30); GFR ESTIMATED 52; SODIUM 135 MMOL/L (135-145)
[2017-02-27] MEDS: D5 NS 1000 ML IV SOLUTION 1,000 ML IV SCH (13:21)
--- NOTE | 2017-02-27 13:33 | Diagnostic Imaging Report ---
INDICATION: Patient unresponsive. PA chest obtained at 1:13 p.m. and compared with 09/23/2014. Heart is normal in size. There is mild central vascular prominence and borderline edema. There is no consolidation or pneumothorax or pleural fluid. IMPRESSION: Borderline heart size with mild central vascular prominence and borderline edema. No consolidation or pleural fluid. Study limited by poor inspiration. Dictated by: Dictated on workstation # [id number]
[2017-02-27 13:35] LABS: GLUCOSE 21 MG/DL (70-105)
--- NOTE | 2017-02-27 14:03 | ED General ---
General Chief Complaint: Glucose Problems Stated Complaint: LOW BLOOD SUGAR/UNRESPONSIVE Nursing Triage Note: to ER by [facility] from home with reports of being in an unresponsive state. EMS was called by patient's friends, who advised that her blood sugar was reading low, and that she had possibly taken some oxycodone that were not prescribed to her. Patient is unresponsive upon arrival, EMS was unsuccessful with multiple IV attempts. Patient unresponsive, but breathing. Nursing Sepsis Screen: No Definite Risk Source of Information: Patient Exam Limitations: No Limitations History of Present Illness Time Seen by Provider: 12:44 Initial Comments This 51-year-old woman presents to emergency room with unresponsive state. She was found unresponsive by a friend who activated EMS. Friend and EMS report blood sugar read "low" on the glucometer. EMS was unable to establish IV access after multiple attempts. Patient was unresponsive with stable vital signs and normal respirations upon arrival to the ER. A left EJ IV was established and patient was given D50. Within minutes patient became alert. Patient does admit to see coded on use which is prescribed to her by Dr. Haider. Allergies and Home Medications Allergies Coded Allergies: codeine (Verified Allergy, Mild, ITCHING, 01/17/14) Sulfa (Sulfonamide Antibiotics) (Verified Allergy, Unknown, 09/13/05) Home Medications Albuterol Sulfate 8.5 Gm Aer.w.adap, 1-2 PUFF INH QID PRN for SHORTNESS OF BREATH, (Reported) Aspirin 81 Mg Tab.chew, 81 MG PO DAILY, (Reported) Carvedilol 12.5 Mg Tablet, 25 MG PO BID, #120 LAST FILLED 11/28/14 #60 Prescribed by: MIRELA HAIDER on 04/21/15 0929 Cephalexin 500 Mg Capsule, 500 MG PO QID, #28 Prescribed by: MICA BROWN on 02/27/17 1548 Clindamycin HCl 300 Mg Capsule, 300 MG PO TID, #30 Prescribed by: MIRELA HAIDER on 04/21/15 0929 Doxycycline Hyclate 100 Mg Capsule, 100 MG PO BID, #14 Prescribed by: BRITTNEY CARTER on 12/05/16 1947 Duloxetine HCl 30 Mg Capsule.dr, 30 MG PO TID, (Reported) Fluconazole 100 Mg Tablet, 100 MG PO EVERY AFTERNOON, (Reported) FILLED 04/16/15 FOR 7 DAY THERAPY Fluticasone Propionate 16 Gm [place].susp, 2 SPR NSEACH DAILY, (Reported) LAST FILLED 06/11/14 #1 Insulin Determir 1,000 Units/10 Ml Soln, 50 UNITS SQ BID, (Reported) Insulin Lispro 100 Unit/1 Ml Insuln.pen, 15 UNITS SQ AC, (Reported) LAST FILLED 10/28/14 30 ML Omeprazole 20 Mg Capsule.dr, 20 MG PO BID, (Reported) LAST FILLED 02/03/15 #60 Oxycodone HCl 10 Mg Tablet, 10 MG PO QID PRN for PAIN, #120 Prescribed by: MIRELA HAIDER on 04/21/15 0929 Constitutional: no symptoms reported EENTM: no symptoms reported Respiratory: no symptoms reported Cardiovascular: no symptoms reported Gastrointestinal: no symptoms reported Genitourinary: no symptoms reported : No Musculoskeletal: no symptoms reported Skin: no symptoms reported Psychiatric/Neurological: See HPI Hematologic/Lymphatic: No Symptoms Reported Past Ahixbai-Qtczbc-Oullie Hx Patient Social History Alcohol Use: Denies Use Recreational Drug Use: Yes Drug of Choice: opioids Smoking Status: Current Everyday Smoker Type Used: Cigarettes 2nd Hand Smoke Exposure: Yes Recent Foreign Travel: No Contact w/Someone Who Travel: No Recent Infectious Disease Expo: No Recent Hopitalizations: No Physical Abuse: No Sexual Abuse: No Mistreated: No Fear: No Immunizations Up To Date Tetanus Booster (TDap): Less than 5yrs Date of Pneumonia Vaccine: Jun 09, 2008 Date of Influenza Vaccine: Mar 29, 2015 Seasonal Allergies Seasonal Allergies: Yes Surgeries History of Surgeries: Yes (Left breast cyst, x2, ORIF Right ankle) Surgeries: Section, Gallbladder, Orthopedic, Tubal Ligation Respiratory History of Respiratory Disorde: Yes (CPAP not used after last sleep study) Respiratory Disorders: Sleep Apnea, COPD Cardiovascular History of Cardiac Disorders: Yes Cardiac Disorders: Chronic Edema/Swelling, High Cholesterol, Hypertension Neurological History of Neurological Disord: Yes Neurological Disorders: Neuropathy 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 System Hx 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 Disorders: No Sexually Transmitted Disease: No HIV/AIDS: No 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 Disorders: 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 Genitourinary History of Genitourinary Disor: Yes Genitourinary Disorders: Renal Failure, UTI-Chronic Gastrointestinal History of Gastrointestinal Di: Yes Gastrointestinal Disorders: Gastroesophageal Reflux, Pancreatitis Musculoskeletal History of Musculoskeletal Dis: Yes (right ankle fx with steel plate) Musculoskeletal Disorders: Degenerate Disk Disease, Chronic Back Pain Endocrine History of Endocrine Disorders: Yes Endocrine Disorders: Diabetes, Insulin dep Cancer History of Cancer: No Psychosocial History of Psychiatric Problem: Yes Behavioral Health Disorders: Sleep Difficulties, Anxiety, Depression Suicide Risk Score: 0 Integumentary History of Skin or Integumenta: Yes (FREQUENT CELLULITIS--LEGS) Skin/Integumentary Disorders: Recent Skin Changes Blood Transfusions History of Blood Disorders: No Adverse Reaction to a Blood Tr: No Family Medical History Significant Family History: No Pertinent Family Hx Family Medial History: Completed stroke 19 FATHER Congenital heart disease 19 FATHER Diabetes mellitus 19 FATHER Myocardial infarction 19 FATHER Psychosocial problem 19 FATHER (depression) 19 MOTHER (depression) Respiratory disorder 19 MOTHER (copd) Physical Exam Vital Signs Vital Sign - Last 12Hours 02/27/17 12:50 Temp 98.1 Pulse 58 Resp 14 B/P (MAP) 114/68 Pulse Ox 98 O2 Delivery Room Air Capillary Refill : Less Than 3 Seconds General Appearance: No Apparent Distress, WD/WN, Other (minimally responsive on arrival, improving with administration of D50) HEENT: PERRL/EOMI, Normal ENT Inspection Neck: Normal Inspection Respiratory: Lungs Clear, Normal Breath Sounds, No Accessory Muscle Use, No Respiratory Distress Cardiovascular: Regular Rate, Rhythm, No Edema, No Murmur Gastrointestinal: Normal Bowel Sounds, Non Tender, Soft Extremity: Normal Inspection, No Pedal Edema Neurologic/Psychiatric: Other (minimally responsive, improving after D50) Skin: Normal Color, Warm/Dry Progress/Results/Core Measures Results/Orders Lab Results My Orders Medications Given in ED Vital Signs/I&O Blood Pressure Mean: 83 Progress Note #1: Time: 14:02 Progress Note Patient became alert after receiving an amp of D50. A liter of D5 normal saline is infusing. Fingerstick blood sugar after the D50 infusion was 96. Patient will be given a meal and discharged home in stable at that time. Progress Note #2: Progress Note Patient received an amp of D50 and 1 L of D5 normal saline. Patient did admit she took her insulin but did not eat breakfast this morning. She had some rebounding hypoglycemia but eventually recovered. She was given a meal to eat in the ER. She was discharged after having 2 consecutive acceptable blood sugars. She was also found to have urinary tract infection and was given a gram of Rocephin in the ER. Diagnostic Imaging Diagonstic Imaging: Xray Plain Films/CT/US/NM/MRI: chest Comments Chest x-ray viewed by me and report reviewed. See report below: NAME: [facility] REC#: [id number] PT STATUS: REG ER : 1965 PHYSICIAN: MICA CONTRERAS MD ADMIT DATE: 02/27/17/ER Draft Date of Exam:02/27/17 CHEST 1 VIEW, AP/PA ONLY INDICATION: Patient unresponsive. PA chest obtained at 1:13 p.m. and compared with 09/23/2014. Heart is normal in size. There is mild central vascular prominence and borderline edema. There is no consolidation or pneumothorax or pleural fluid. IMPRESSION: Borderline heart size with mild central vascular prominence and borderline edema. No consolidation or pleural fluid. Study limited by poor inspiration. Dictated on workstation # [id number] Dict: 02/27/17 1329 Trans: 02/27/17 1333 [id number] Interpreted by: MICHAEL BUCKNER MD Departure Impression Impression: Primary Impression: Hypoglycemia associated with diabetes Additional Impressions: Altered mental status Qualified Codes: R41.82 - Altered mental status, unspecified Urinary tract infection Qualified Codes: N39.0 - Urinary tract infection, site not specified Disposition: 01 HOME, SELF-CARE Condition: Improved Departure-Patient Inst. Decision time for Depature: 15:45 Referrals: MRIELA HAIDER DO (PCP/Family) Primary Care Physician Patient Instructions: HYPOGLYCEMIA Add. Discharge Instructions: Drink plenty of clear liquids. Complete your antibiotics as prescribed. Eat a well-balanced diet. Monitor your blood sugars very closely throughout the day today. Keep record of your blood sugars and communicate them to your primary care provider. Follow-up with your primary care provider soon as possible. Review your urine culture results with your doctor by Friday. All discharge instructions reviewed with patient and/or family. Voiced understanding. Scripts Cephalexin (Keflex) 500 Mg Capsule 500 MG PO QID, #28 CAP Prov: MICA CONTRERAS MD 02/27/17 Copy Copies To 1: MIRELA HAIDER JOSHUA T MD Feb 27, 2017 14:03
[2017-02-27 14:06] LABS: BILIRUBIN,URINE NEGATIVE (NEGATIVE); KETONES,URINE NEGATIVE (NEGATIVE); LEUKOCYTE ESTERASE ,URINE 3+ (NEGATIVE); NITRITE,URINE NEGATIVE (NEGATIVE); PH,URINE 5 (5-9); PROTEIN,URINE 1+ (NEGATIVE); UROBILINOGEN,URINE NORMAL (NORMAL)
[2017-02-27 14:23] LABS: WBC,URINE TNTC /HPF
[2017-02-27] MEDS: cefTRIAXone INJECTION 1,000 MG in NS (IVPB) 50 ML IV ONE (15:10)
[2017-02-27] MEDS ORDERED: CEPH-507 PO (15:48)
[2017-02-27 16:52] VITALS: BP 144/72
== END 2017-02-27 16:52 | disposition home or self-care (01) ==
LOC: EDUNIT# 12:42 → ER 12:44
DX: E11.649 Type 2 diabetes mellitus with hypoglycemia without coma (principal); E11.40 Type 2 diabetes mellitus with diabetic neuropathy, unspecified; R41.82 Altered mental status, unspecified; E78.00 Pure hypercholesterolemia, unspecified; N39.0 Urinary tract infection, site not specified; I10 Essential (primary) hypertension; J44.9 Chronic obstructive pulmonary disease, unspecified; F41.9 Anxiety disorder, unspecified; F32.9 Major depressive disorder, single episode, unspecified; M47.9 Spondylosis, unspecified; K21.9 Gastro-esophageal reflux disease without esophagitis; F17.210 Nicotine dependence, cigarettes, uncomplicated; Z98.51 Tubal ligation status; Z87.59 Personal history of other complications of pregnancy, childbirth and the puerperium; Z79.4 Long term (current) use of insulin; Z79.82 Long term (current) use of aspirin
CPT/HCPCS: 36415; 71010; 80048; 80306; 80320; 81000; 82962; 85025; 87077; 87088; 87186

== ENCOUNTER 2017-03-04 21:25 | Observation (INO) | payer MEDICARE, MEDICAID ==
[~2017-03-04] VITALS: Ht 157.5 cm; Wt 97.3 kg
[~2017-03-04 21:25] MED LIST changes: +CEPH-507 PO
--- NOTE | 2017-03-04 21:37 | ED General ---
General Chief Complaint: Unresponsive Stated Complaint: UNRESPONSIVE Nursing Triage Note: Patient brought in by EMS with c/o unresponsive per family, patient was given 2mg Narcan IVP by EMS. Nursing Sepsis Screen: No Definite Risk Source of Information: EMS Exam Limitations: No Limitations History of Present Illness Time Seen by Provider: 21:35 Initial Comments To ER per EMS from home after 911 was called by the patient's family. Patient and her daughter had just gone to eat at [employer] and on the way home patient suddenly became lethargic and with slurred speech. EMS arrived and found blood sugar to be right around 100, patient has a history of overdosing on her oxycodone which she takes for chronic back pain. She was very somnolent until EMS gave 2 mg of IV Narcan at which point she aroused and began conversing with shot examiner. When asked what or how many pills she took tonight she states "I don 't know". Pupils are dilated at this time after the Narcan, respiratory rate is 22, blood pressure and pulse are adequate. Timing/Duration: 1/2 Hour Severity: Moderate Allergies and Home Medications Allergies Coded Allergies: codeine (Verified Allergy, Mild, ITCHING, 01/17/14) Sulfa (Sulfonamide Antibiotics) (Verified Allergy, Unknown, 09/13/05) Home Medications Albuterol Sulfate 8.5 Gm Aer.w.adap, 1-2 PUFF INH QID PRN for SHORTNESS OF BREATH, (Reported) Aspirin 81 Mg Tab.chew, 81 MG PO DAILY, (Reported) Carvedilol 12.5 Mg Tablet, 25 MG PO BID, #120 LAST FILLED 11/28/14 #60 Prescribed by: MIRELA LYLE on 04/21/15 0929 Cephalexin 500 Mg Capsule, 500 MG PO QID, #28 Prescribed by: MICA BROWN on 02/27/17 1548 Clindamycin HCl 300 Mg Capsule, 300 MG PO TID, #30 Prescribed by: MIRELA LYLE on 04/21/15 0929 Doxycycline Hyclate 100 Mg Capsule, 100 MG PO BID, #14 Prescribed by: BRITTNEY CARTER on 12/05/16 1947 Duloxetine HCl 30 Mg Capsule.dr, 30 MG PO TID, (Reported) Fluconazole 100 Mg Tablet, 100 MG PO EVERY AFTERNOON, (Reported) FILLED 04/16/15 FOR 7 DAY THERAPY Fluticasone Propionate 16 Gm [place].susp, 2 SPR NSEACH DAILY, (Reported) LAST FILLED 06/11/14 #1 Insulin Determir 1,000 Units/10 Ml Soln, 50 UNITS SQ BID, (Reported) Insulin Lispro 100 Unit/1 Ml Insuln.pen, 15 UNITS SQ AC, (Reported) LAST FILLED 10/28/14 30 ML Omeprazole 20 Mg Capsule.dr, 20 MG PO BID, (Reported) LAST FILLED 02/03/15 #60 Oxycodone HCl 10 Mg Tablet, 10 MG PO QID PRN for PAIN, #120 Prescribed by: MIRELA LYLE on 04/21/15 0929 Constitutional: see HPI, diaphoresis (after Narcan administration) EENTM: see HPI Respiratory: no symptoms reported Cardiovascular: no symptoms reported Genitourinary: no symptoms reported Musculoskeletal: no symptoms reported Skin: no symptoms reported Immunological/Allergic: no symptoms reported Past Skmgnqu-Bzybbm-Jvxekt Hx Patient Social History Alcohol Use: Denies Use Recreational Drug Use: No Drug of Choice: opioids Smoking Status: Current Everyday Smoker Type Used: Cigarettes 2nd Hand Smoke Exposure: Yes Recent Foreign Travel: No Contact w/Someone Who Travel: No Recent Infectious Disease Expo: No Recent Hopitalizations: No Immunizations Up To Date Tetanus Booster (TDap): Less than 5yrs Date of Pneumonia Vaccine: Jun 09, 2008 Date of Influenza Vaccine: Mar 29, 2015 Seasonal Allergies Seasonal Allergies: Yes Surgeries History of Surgeries: Yes (Left breast cyst, x2, ORIF Right ankle) Surgeries: Section, Gallbladder, Orthopedic, Tubal Ligation Respiratory History of Respiratory Disorde: Yes (CPAP not used after last sleep study) Respiratory Disorders: Sleep Apnea, COPD Cardiovascular History of Cardiac Disorders: Yes Cardiac Disorders: Chronic Edema/Swelling, High Cholesterol, Hypertension Neurological History of Neurological Disord: Yes Neurological Disorders: Neuropathy 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 System Hx 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 Disorders: No Sexually Transmitted Disease: No HIV/AIDS: No 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 Disorders: 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 Genitourinary History of Genitourinary Disor: Yes Genitourinary Disorders: Renal Failure, UTI-Chronic Gastrointestinal History of Gastrointestinal Di: Yes Gastrointestinal Disorders: Gastroesophageal Reflux, Pancreatitis Musculoskeletal History of Musculoskeletal Dis: Yes (right ankle fx with steel plate) Musculoskeletal Disorders: Degenerate Disk Disease, Chronic Back Pain Endocrine History of Endocrine Disorders: Yes Endocrine Disorders: Diabetes, Insulin dep Cancer History of Cancer: No Psychosocial History of Psychiatric Problem: Yes Behavioral Health Disorders: Sleep Difficulties, Anxiety, Depression Integumentary History of Skin or Integumenta: Yes (FREQUENT CELLULITIS--LEGS) Skin/Integumentary Disorders: Recent Skin Changes Blood Transfusions History of Blood Disorders: No Adverse Reaction to a Blood Tr: No Family Medical History Significant Family History: No Pertinent Family Hx Family Medial History: Completed stroke 19 FATHER Congenital heart disease 19 FATHER Diabetes mellitus 19 FATHER Myocardial infarction 19 FATHER Psychosocial problem 19 FATHER (depression) 19 MOTHER (depression) Respiratory disorder 19 MOTHER (copd) Physical Exam Vital Signs Vital Sign - Last 12Hours 03/04/17 21:32 Temp 96.7 Pulse 71 Resp 22 B/P (MAP) 182/98 Pulse Ox 100 Capillary Refill : Less Than 3 Seconds General Appearance: No Apparent Distress, WD/WN, Other (slurred speech, cannot carry on a conversation, has to be aroused nearly every few seconds as she drifts off to sleep again.) HEENT: PERRL/EOMI, TMs Normal Neck: Full Range of Motion, Normal Inspection Respiratory: Normal Breath Sounds, No Accessory Muscle Use, No Respiratory Distress Cardiovascular: Regular Rate, Rhythm, Normal Peripheral Pulses Gastrointestinal: Normal Bowel Sounds, Non Tender, Soft Extremity: Normal Capillary Refill, Normal Inspection Neurologic/Psychiatric: Alert, Oriented x3, No Motor/Sensory Deficits Skin: Normal Color, Warm/Dry Progress/Results/Core Measures Results/Orders Lab Results Laboratory Tests Test 03/04/17 21:44 03/04/17 21:50 Range/Units Urine Color YELLOW Urine Clarity CLEAR Urine pH 5 5-9 Urine Specific [place] 1.010 L 1.016-1.022 Urine Protein 2+ H NEGATIVE Urine Glucose (UA) 2+ H NEGATIVE Urine Ketones NEGATIVE NEGATIVE Urine Nitrite NEGATIVE NEGATIVE Urine Bilirubin NEGATIVE NEGATIVE Urine Urobilinogen NORMAL NORMAL MG/DL Urine Leukocyte Esterase 1+ H NEGATIVE Urine RBC (Auto) 1+ H NEGATIVE Urine RBC RARE /HPF Urine WBC RARE /HPF Urine Squamous Epithelial Cells 2-5 /HPF Urine Crystals NONE /LPF Urine Bacteria TRACE /HPF Urine Casts NONE /LPF Urine Mucus NEGATIVE /LPF Urine Culture Indicated NO Urine Opiates Screen NEGATIVE NEGATIVE Urine Oxycodone Screen POSITIVE H NEGATIVE Urine Methadone Screen NEGATIVE NEGATIVE Urine Propoxyphene Screen POSITIVE H NEGATIVE Urine Barbiturates Screen NEGATIVE NEGATIVE Ur Tricyclic Antidepressants Screen POSITIVE H NEGATIVE Urine Phencyclidine Screen NEGATIVE NEGATIVE Urine Amphetamines Screen NEGATIVE NEGATIVE Urine Methamphetamines Screen NEGATIVE NEGATIVE Urine Benzodiazepines Screen NEGATIVE NEGATIVE Urine Cocaine Screen NEGATIVE NEGATIVE Urine Cannabinoids Screen NEGATIVE NEGATIVE White Blood Count 12.8 H 4.3-11.0 10^3/uL Red Blood Count 3.97 L 4.35-5.85 10^6/uL Hemoglobin 11.6 11.5-16.0 G/DL Hematocrit 34 L 35-52 % Mean Corpuscular Volume 86 80-99 FL Mean Corpuscular Hemoglobin 29 25-34 PG Mean Corpuscular Hemoglobin Concent 34 32-36 G/DL Red Cell Distribution Width 14.3 10.0-14.5 % Platelet Count 353 130-400 10^3/uL Mean Platelet Volume 10.6 H 7.4-10.4 FL Neutrophils (%) (Auto) 55 42-75 % Lymphocytes (%) (Auto) 35 12-44 % Monocytes (%) (Auto) 6 0-12 % Eosinophils (%) (Auto) 3 0-10 % Basophils (%) (Auto) 0 0-10 % Neutrophils # (Auto) 7.1 1.8-7.8 X 10^3 Lymphocytes # (Auto) 4.5 H 1.0-4.0 X 10^3 Monocytes # (Auto) 0.8 0.0-1.0 X 10^3 Eosinophils # (Auto) 0.4 H 0.0-0.3 10^3/uL Basophils # (Auto) 0.0 0.0-0.1 10^3/uL Sodium Level 133 L 135-145 MMOL/L Potassium Level 3.5 L 3.6-5.0 MMOL/L Chloride Level 100 98-107 MMOL/L Carbon Dioxide Level 22 21-32 MMOL/L Anion Gap 11 5-14 MMOL/L Blood Urea Nitrogen 10 7-18 MG/DL Creatinine 1.36 H 0.60-1.30 MG/DL Estimat Glomerular Filtration Rate 41 BUN/Creatinine Ratio 7 Glucose Level 16 *L 70-105 MG/DL Calcium Level 9.4 8.5-10.1 MG/DL Total Bilirubin 0.4 0.1-1.0 MG/DL Aspartate Amino Transf (AST/SGOT) 12 5-34 U/L Alanine Aminotransferase (ALT/SGPT) 9 0-55 U/L Alkaline Phosphatase 118 40-136 U/L Troponin I < 0.30 <0.30 NG/ML B-Type Natriuretic Peptide 38.3 <100.0 PG/ML Total Protein 8.0 6.4-8.2 GM/DL Albumin 3.6 3.2-4.5 GM/DL Salicylates Level < 5.0 L 5.0-20.0 MG/DL Acetaminophen Level < 10 L 10-30 UG/ML Serum Alcohol < 10 <10 MG/DL My Orders Orders - BRITTNEY CARTER APRN Ua Culture If Indicated (03/04/17 21:33) Drug Screen Stat (Urine) (03/04/17 21:33) Salicylate (03/04/17 21:33) Acetaminophen (03/04/17 21:33) Alcohol (03/04/17 21:33) Saline Lock/Iv-Start (03/04/17 21:33) Cbc With Automated Diff (03/04/17 21:33) Comprehensive Metabolic Panel (03/04/17 21:33) Ct Head Wo (03/04/17 21:33) Chest 1 View, Ap/Pa Only (03/04/17 21:33) Drug Screen Urine Cl(Send Out) (03/04/17 21:37) BNP (03/04/17 22:18) Ekg Tracing (03/04/17 22:18) Troponin I (03/04/17 22:18) D50w (Emergency) Syringe (Dextrose 50% 5 (03/04/17 22:27) D5 Ns 1000 Ml Iv Solution (Dextrose 5%/0 (03/04/17 22:37) D5 1/2 Ns W/Kcl 20 Meq/L (Dextrose 5%/0. (03/04/17 22:38) Accucheck Stat ONCE (03/04/17 22:57) Accucheck Stat ONCE (03/04/17 22:57) D5 1/2 Ns W/Kcl 20 Meq/L (Dextrose 5%/0. (03/04/17 23:00) Medications Given in ED Current Medications Medications Dose Ordered Sig/Amy Route Start Time Stop Time Status Last Admin Dose Admin Dextrose 50 ml STK-MED ONCE .ROUTE 03/04/17 22:27 9/26/17 22:34 DC 03/04/17 22:47 50 ML Potassium Chloride/Dextrose/ Sod Cl 1,000 ml @ ud STK-MED ONCE IV 03/04/17 22:38 03/04/17 22:45 DC 03/04/17 22:48 200 MLS/HR Vital Signs/I&O Vital Sign - Last 12Hours 03/04/17 21:32 Temp 96.7 Pulse 71 Resp 22 B/P (MAP) 182/98 Pulse Ox 100 Blood Pressure Mean: 126 Departure Communication (Admissions) Time/Spoke to Admitting Phy: 23:04 Communication Discussed the case with Dr. Lyle. We'll admit the patient to ICU, serial glucose checks, repeat labs in the morning, Narcan when necessary excessive sedation, D5 half-normal saline with 20 mEq of potassium Progress Notes 2154- patient again does not respond to verbal stimuli, much more lethargic. Does not respond to verbal stimuli but does respond to painful stimuli. GCS is 10. Patient's daughter is at the bedside. States that patient took one or two 60 mg OxyContin about an hour before this event occurred. This is in addition to her prescribed oxycodone. Daughter states that patient is getting the OxyContin from friends. 2245-patient's blood sugar was found to be 16. She was given one amp of D50 which increased this to the T7 after 10 minutes. She was then started on D5 half-normal saline with 20 mEq of potassium. Upon review of the patient's extremities and history I do not see that she is filled any insulin since 2016 according to the list that I'm provided. Impression Impression: Primary Impression: Altered mental status Additional Impressions: Drug abuse Hypoglycemia Disposition: 01 HOME, SELF-CARE Condition: Stable Admissions Decision to Admit Reason: Admit from ER (General) Decision to Admit/Date: Mar 04, 2017 Time/Decision to Admit Time: 22:47 Departure-Patient Inst. Referrals: MIRELA LYLE DO (PCP/Family) Primary Care Physician BRITTNEY CARTER APRN Mar 04, 2017 21:37
[2017-03-04 22:01] LABS: BASOPHILS % (AUTO) 0 % (0-10); EOSINOPHILS # (AUTO) 0.4 10^3/uL (0.0-0.3); EOSINOPHILS % (AUTO) 3 % (0-10); LYMPHOCYTES # (AUTO) 4.5 X 10^3 (1.0-4.0); LYMPHOCYTES % (AUTO) 35 % (12-44); MEAN CORPUSCULAR HEMOGLOBIN 29 PG (25-34); MEAN CORPUSCULAR HGB CONC 34 G/DL (32-36); MEAN CORPUSCULAR VOLUME 86 FL (80-99); MEAN PLATELET VOLUME 10.6 FL (7.4-10.4); MONOCYTES # (AUTO) 0.8 X 10^3 (0.0-1.0); MONOCYTES % (AUTO) 6 % (0-12); NEUTROPHILS # (AUTO) 7.1 X 10^3 (1.8-7.8); NEUTROPHILS % (AUTO) 55 % (42-75); PLATELET COUNT 353 10^3/uL (130-400); RED BLOOD COUNT 3.97 10^6/uL (4.35-5.85); RED CELL DISTRIBUTION WIDTH 14.3 % (10.0-14.5); WHITE BLOOD COUNT 12.8 10^3/uL (4.3-11.0)
[2017-03-04 22:09] LABS: BILIRUBIN,URINE NEGATIVE (NEGATIVE); KETONES,URINE NEGATIVE (NEGATIVE); LEUKOCYTE ESTERASE ,URINE 1+ (NEGATIVE); NITRITE,URINE NEGATIVE (NEGATIVE); PH,URINE 5 (5-9); PROTEIN,URINE 2+ (NEGATIVE); UROBILINOGEN,URINE NORMAL (NORMAL)
[2017-03-04 22:24] LABS: WBC,URINE RARE /HPF
[2017-03-04] MEDS ORDERED: DEXTROSE 50% 50 ML (IMS) SYR ONE (22:27)
[2017-03-04 22:31] LABS: ALANINE AMINOTRANSFERASE 9 U/L (0-55); ALBUMIN 3.6 GM/DL (3.2-4.5); ALCOHOL < 10 MG/DL (<10); ANION GAP 11 MMOL/L (5-14); ASPARTATE AMINO TRANSFERASE 12 U/L (5-34); BILIRUBIN,TOTAL 0.4 MG/DL (0.1-1.0); BLOOD UREA NITROGEN 10 MG/DL (7-18); BUN/CREATININE RATIO 7; CALCIUM 9.4 MG/DL (8.5-10.1); CARBON DIOXIDE 22 MMOL/L (21-32); CHLORIDE 100 MMOL/L (98-107); CREATININE SERUM 1.36 MG/DL (0.60-1.30); GFR ESTIMATED 41; POTASSIUM 3.5 MMOL/L (3.6-5.0); SALICYLATE < 5.0 MG/DL (5.0-20.0); SODIUM 133 MMOL/L (135-145)
[2017-03-04 22:34] LABS: ACETAMINOPHEN < 10 UG/ML (10-30); GLUCOSE 16 MG/DL (70-105)
[2017-03-04] MEDS ORDERED: D5 NS 1000 ML IV SOLUTION 0 ML IV ONE (22:37)
[2017-03-04] MEDS ORDERED: D5 1/2 NS W/KCL 20 MEQ/L 1,000 ML IV ONE (22:38)
[2017-03-04] MEDS ORDERED: D5 1/2 NS W/KCL 20 MEQ/L 1,000 ML IV SCH (23:00)
[2017-03-04] MEDS ORDERED: DEXTROSE 50% 50 ML (IMS) SYR IV ONE (23:15)
[2017-03-05] VITALS (16 sets, daily range): BP systolic 107–176; BP diastolic 64–96
[2017-03-05] MEDS ORDERED: NALOXONE 0.4 MG/ML 1 ML (NARCAN) VIAL IV PRN (00:30)
[2017-03-05] MEDS ORDERED: NS IV 1000 ML 1,000 ML IV PRN (00:30)
[2017-03-05] MEDS: D5 1/2 NS W/KCL 20 MEQ/L 1,000 ML IV SCH ×3 (00:46→12:26)
[2017-03-05 05:34] LABS: BASOPHILS % (AUTO) 0 % (0-10); EOSINOPHILS # (AUTO) 0.3 10^3/uL (0.0-0.3); EOSINOPHILS % (AUTO) 2 % (0-10); LYMPHOCYTES # (AUTO) 2.8 X 10^3 (1.0-4.0); LYMPHOCYTES % (AUTO) 22 % (12-44); MEAN CORPUSCULAR HEMOGLOBIN 29 PG (25-34); MEAN CORPUSCULAR HGB CONC 33 G/DL (32-36); MEAN CORPUSCULAR VOLUME 86 FL (80-99); MEAN PLATELET VOLUME 10.2 FL (7.4-10.4); MONOCYTES # (AUTO) 0.5 X 10^3 (0.0-1.0); MONOCYTES % (AUTO) 4 % (0-12); NEUTROPHILS # (AUTO) 9.1 X 10^3 (1.8-7.8); NEUTROPHILS % (AUTO) 72 % (42-75); PLATELET COUNT 273 10^3/uL (130-400); RED BLOOD COUNT 3.95 10^6/uL (4.35-5.85); RED CELL DISTRIBUTION WIDTH 14.1 % (10.0-14.5); WHITE BLOOD COUNT 12.7 10^3/uL (4.3-11.0)
--- NOTE | 2017-03-05 06:19 | Diagnostic Imaging Report ---
PROCEDURE: CT head without contrast. TECHNIQUE: Multiple contiguous axial images were obtained through the brain without the use of intravenous contrast. INDICATION: Unresponsive. Comparison with CT scan from 05/04/2015. FINDINGS: No evidence of intracranial hemorrhage. No mass effect. Cortical gyral pattern and ventricles appear normal. Area of decreased density involving medial aspect of the left temporal parietal region along the basal nuclei is unchanged since previous exam. Mastoid air cells and paranasal sinuses are clear. IMPRESSION: 1. Chronic white matter changes noted along the left temporal parietal basal nuclear region. 2. No acute changes demonstrated. These findings are concordant with the preliminary report. Dictated by: Dictated on workstation # [id number]
[2017-03-05 06:21] LABS: ALBUMIN 3.1 GM/DL (3.2-4.5); BILIRUBIN,TOTAL 0.3 MG/DL (0.1-1.0); CALCIUM 8.4 MG/DL (8.5-10.1); CREATININE SERUM 1.12 MG/DL (0.60-1.30); MAGNESIUM 1.7 MG/DL (1.8-2.4); POTASSIUM 5.2 MMOL/L (3.6-5.0)
[2017-03-05] MEDS ORDERED: CATHETER FLUSH 10 ML SYR IV PRN (07:00)
--- NOTE | 2017-03-05 07:15 | Diagnostic Imaging Report ---
INDICATION: Unresponsive. Comparison with 02/27/2017. FINDINGS: Heart remains enlarged. There are bilateral scattered interstitial and alveolar infiltrates more prominent in the perihilar region. No dense consolidated infiltrates are seen. The diaphragm is sharp with costophrenic angles appearing normal. IMPRESSION: Mild cardiac enlargement with perihilar infiltrates raising concern of pulmonary edema. No dense consolidated infiltrates demonstrated. Dictated by: Dictated on workstation # [id number]
[2017-03-05] MEDS ORDERED: CYCL10TA9 PO (13:18)
[2017-03-05] MEDS ORDERED: INSU100I29 SC (13:18)
[2017-03-05] MEDS ORDERED: ALBU18HF2 INH (13:18)
[2017-03-05] MEDS ORDERED: AMIT25TA9 PO (13:18)
[2017-03-05] MEDS ORDERED: PREG150C PO (13:18)
[2017-03-05] MEDS ORDERED: CARV25TA PO (13:18)
[2017-03-05] MEDS ORDERED: GABA-488 PO (13:18)
[2017-03-05] MEDS ORDERED: CEPH500C PO (13:18)
[2017-03-05] MEDS ORDERED: OXYC10TA7 PO (13:18)
[2017-03-05] MEDS ORDERED: IBUP-30 PO (13:28)
[2017-03-05] MEDS ORDERED: DIPH-639 PO (13:28)
[2017-03-05] MEDS: NS IV 1000 ML 1,000 ML IV SCH ×2 (13:52→23:43)
[2017-03-05] MEDS ORDERED: RT-ALBUTEROL SULF 2.5 MG/3 ML PRE-MIX VIAL IH PRN (17:45)
[2017-03-05] MEDS ORDERED: ONDANSETRON 4 MG/2 ML (SDV) Z0FRAN IVP PRN (17:45)
[2017-03-05] MEDS ORDERED: RT-ALBUTEROL HFA (VENTOLIN) PER PUFF IH PRN (17:45)
--- NOTE | 2017-03-05 17:49 | History & Physicial ---
History of Present Illness History of Present Illness Reason for visit/HPI This is a 51 year old female with a history of previous drug overdose of oxycodone and recent hypoglycemic episode who was brought to the emergency room via EMS after she became unresponsive. She had eaten at [employer] with her daughter and then on the way home became lethargic and then unresponsive. EMS checked a blood sugar which was 100. Her daughter reported that the patient had obtained oxycontin ER 60[address]. She was given narcan and aroused and was able to talk to EMS, however, once the narcan wore off she once again became lethargic. A repeat of her blood sugar in the emergency room showed a level of 19 so she was given D50 which brought her blood sugar up to the 200s but she then dropped back to the 50s so she was place on D5 fluids and it was decided to admit her to the ICU to monitor her blood sugar and monitor her as the oxycontin came out of her system. She was protecting her airway so there was no indication for intubation. Date of Admission Mar 04, 2017 at 22:17 Date Seen by Provider: Mar 05, 2017 Time Seen by Provider: 11:45 I consulted on this patient on 03/05/17 17:43 Attending Physician Bailee Haider DO Admitting Physician Bailee Haider DO Consult Allergies and Home Medications Allergies Coded Allergies: codeine (Verified Allergy, Mild, ITCHING, 01/17/14) Sulfa (Sulfonamide Antibiotics) (Verified Allergy, Unknown, 09/13/05) Home Medications Albuterol Sulfate 18 Gm Hfa.aer.ad, 2 PUFF INH Q6H PRN for SHORTNESS OF BREATH, (Reported) Amitriptyline HCl 25 Mg Tablet, 25 MG PO HS, (Reported) Carvedilol 25 Mg Tablet, 25 MG PO BID, (Reported) Cephalexin 500 Mg Capsule, 500 MG PO QID, (Reported) 7 DAY THERAPY FILLED 02-27-17 Cyclobenzaprine HCl 10 Mg Tablet, 10 MG PO TID PRN for MUSCLE SPASMS, (Reported) Diphenhydramine HCl 25 Mg Capsule, 25 MG PO HS PRN for SLEEP, (Reported) Duloxetine HCl 30 Mg Capsule.dr, 30 MG PO TID, (Reported) Gabapentin 300 Mg Capsule, 300 MG PO TID, (Reported) Ibuprofen 200 Mg Tablet, 600-800 MG PO TID PRN for PAIN-MILD, (Reported) Insulin Detemir 100 Unit/1 Ml Insuln.pen, 50 UNITS SC BID, (Reported) LAST FILLED 1 BOX 11-05-16 Insulin Lispro 100 Unit/1 Ml Insuln.pen, 17 UNITS SQ AC, (Reported) UNABLE TO VERIFY LAST FILL DATE Omeprazole 20 Mg Capsule.dr, 20 MG PO BID, (Reported) Oxycodone HCl 10 Mg Tablet, 10 MG PO TID PRN for PAIN-SEVERE, (Reported) Pregabalin 150 Mg Capsule, 150 MG PO BID, (Reported) Past Xfhkvst-Nowzhi-Iutqjw Hx Patient Social History Alcohol Use: Denies Use Recreational Drug Use: No Drug of Choice: opioids Smoking Status: Current Everyday Smoker Type Used: Cigarettes 2nd Hand Smoke Exposure: Yes Physical Abuse Screen: No Sexual Abuse: No Recent Foreign Travel: No Contact w/other who traveled: No Recent Hopitalizations: No Recent Infectious Disease Expo: No Immunizations Up To Date Tetanus Booster (TDap): Less than 5yrs Date of Pneumonia Vaccine: Jun 09, 2008 Date of Influenza Vaccine: Mar 29, 2015 Seasonal Allergies Seasonal Allergies: Yes Surgeries Yes (Left breast cyst, x2, ORIF Right ankle) Section, Gallbladder, Orthopedic, Tubal Ligation Respiratory Yes (CPAP not used after last sleep study) COPD Cardiovascular Yes Chronic Edema/Swelling, High Cholesterol, Hypertension Neurological Yes Neuropathy 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 System Hx 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 Disorders: No Sexually Transmitted Disease: No HIV/AIDS: No 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 Disorders: Denies 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 Genitourinary Yes Renal Failure, UTI-Chronic Gastrointestinal Yes Gastroesophageal Reflux, Pancreatitis Musculoskeletal Yes (right ankle fx with steel plate) Degenerate Disk Disease, Chronic Back Pain Endocrine History of Endocrine Disorders: Yes Endocrine Disorders: Diabetes, Insulin dep Cancer No Psychosocial History of Psychiatric Problem: Yes Behavioral Health Disorders: Sleep Difficulties, Anxiety, Depression Integumentary History of Skin or Integumenta: Yes (FREQUENT CELLULITIS--LEGS) Skin/Integumentary Disorders: Recent Skin Changes Blood Transfusions History of Blood Disorders: No Adverse Reaction to a Blood Tr: No Family Medical History Significant Family History: No Pertinent Family Hx Family Hx: Completed stroke 19 FATHER Congenital heart disease 19 FATHER Diabetes mellitus 19 FATHER Myocardial infarction 19 FATHER Psychosocial problem 19 FATHER (depression) 19 MOTHER (depression) Respiratory disorder 19 MOTHER (copd) Constitutional: weakness EENTM: No see HPI, No no symptoms reported, No ear discharge, No hearing loss, No ear pain, No blurred vision, No double vision, No eye pain, No tearing, No vision loss, No dental problems, No hoarseness, No mouth pain, No mouth swelling , No epistaxis, No nose congestion, No nose pain, No throat pain, No throat swelling, No other Respiratory: No no symptoms reported, No see HPI, No cough, No dyspnea on exertion, No hemoptysis, No orthopnea, No phlegm, No short of breath, No stridor , No wheezing, No other Cardiovascular: No no symptoms reported, No see HPI, No chest pain, No edema, No Hx of Intervention, No palpitations, No syncope, No vascular heart diseas, No other Gastrointestinal: No RUQ, No LUQ, No RLQ, No LLQ, No no symptoms reported, No see HPI, No abdominal pain, No constipation, No diarrhea, No dysphagia, No hematemesis, No heartburn, No jaundice, No loss of appetite, No melena, No nausea, No vomiting, No other Genitourinary: No no symptoms reported, No see HPI, No decreased output, No discharge, No dysuria, No frequency, No hematuria, No hesitancy, No incontinence , No nocturia, No pain, No other Musculoskeletal: back pain Skin: No no symptoms reported, No see HPI, No change in color, No change in hair/nails, No dryness, No hx of skin cancer, No lesions, No lumps, No pruritus , No rash, No other Psychiatric/Neurological: Anxiety, Paresthesia, Weakness, Other (lethargy/ unresponsive) Physical Exam Vital Signs Vital Sign - Last 12Hours 03/04/17 03/05/17 03/05/17 21:32 00:15 04:00 Temp 96.7 Pulse 71 Resp 22 B/P (MAP) 182/98 Pulse Ox 100 O2 Delivery Room Air O2 Flow Rate 98.00 Capillary Refill : Less Than 3 Seconds General Appearance: No Apparent Distress HEENT: Pharynx Normal Neck: Supple Respiratory: Lungs Clear Cardiovascular: Regular Rate, Rhythm Gastrointestinal: Normal Bowel Sounds, Non Tender, Soft Rectal: Deferred Back: No CVA Tenderness Extremity: Non Tender, No Calf Tenderness, No Pedal Edema Neurologic/Psychiatric: Alert, Oriented x3 Skin: Warm/Dry Comments Laboratory Tests 03/04/17 21:44: Urine Color YELLOW, Urine Clarity CLEAR, Urine pH 5, Urine Specific [place] 1.010L, Urine Protein 2+H, Urine Glucose (UA) 2+H, Urine Ketones NEGATIVE, Urine Nitrite NEGATIVE, Urine Bilirubin NEGATIVE, Urine Urobilinogen NORMAL, Urine Leukocyte Esterase 1+H, Urine RBC (Auto) 1+H, Urine RBC RARE, Urine WBC RARE, Urine Squamous Epithelial Cells 2-5, Urine Crystals NONE, Urine Bacteria TRACE, Urine Casts NONE, Urine Mucus NEGATIVE, Urine Culture Indicated NO, Urine Opiates Screen NEGATIVE, Urine Oxycodone Screen POSITIVEH, Urine Methadone Screen NEGATIVE, Urine Propoxyphene Screen POSITIVEH, Urine Barbiturates Screen NEGATIVE, Ur Tricyclic Antidepressants Screen POSITIVEH, Urine Phencyclidine Screen NEGATIVE, Urine Amphetamines Screen NEGATIVE, Urine Methamphetamines Screen NEGATIVE, Urine Benzodiazepines Screen NEGATIVE, Urine Cocaine Screen NEGATIVE, Urine Cannabinoids Screen NEGATIVE 03/04/17 21:50: White Blood Count 12.8H, Red Blood Count 3.97L, Hemoglobin 11.6, Hematocrit 34L , Mean Corpuscular Volume 86, Mean Corpuscular Hemoglobin 29, Mean Corpuscular Hemoglobin Concent 34, Red Cell Distribution Width 14.3, Platelet Count 353, Mean Platelet Volume 10.6H, Neutrophils (%) (Auto) 55, Lymphocytes (%) (Auto) 35 , Monocytes (%) (Auto) 6, Eosinophils (%) (Auto) 3, Basophils (%) (Auto) 0, Neutrophils # (Auto) 7.1, Lymphocytes # (Auto) 4.5H, Monocytes # (Auto) 0.8, Eosinophils # (Auto) 0.4H, Basophils # (Auto) 0.0, Sodium Level 133L, Potassium Level 3.5L, Chloride Level 100, Carbon Dioxide Level 22, Anion Gap 11, Blood Urea Nitrogen 10, Creatinine 1.36H, Estimat Glomerular Filtration Rate 41, BUN/ Creatinine Ratio 7, Glucose Level 16*L, Calcium Level 9.4, Total Bilirubin 0.4, Aspartate Amino Transf (AST/SGOT) 12, Alanine Aminotransferase (ALT/SGPT) 9, Alkaline Phosphatase 118, Troponin I < 0.30, B-Type Natriuretic Peptide 38.3, Total Protein 8.0, Albumin 3.6, Salicylates Level < 5.0L, Acetaminophen Level < 10L, Serum Alcohol < 10 03/04/17 22:42: Glucometer 57*L 03/04/17 23:13: Glucometer 47*L 03/05/17 00:11: Glucometer 78 03/05/17 01:14: Glucometer 75 03/05/17 02:14: Glucometer 117H 03/05/17 03:32: Glucometer 155H 03/05/17 05:24: Glucometer 199H 03/05/17 05:25: White Blood Count 12.7H, Red Blood Count 3.95L, Hemoglobin 11.4L, Hematocrit 34L , Mean Corpuscular Volume 86, Mean Corpuscular Hemoglobin 29, Mean Corpuscular Hemoglobin Concent 33, Red Cell Distribution Width 14.1, Platelet Count 273, Mean Platelet Volume 10.2, Neutrophils (%) (Auto) 72, Lymphocytes (%) (Auto) 22 , Monocytes (%) (Auto) 4, Eosinophils (%) (Auto) 2, Basophils (%) (Auto) 0, Neutrophils # (Auto) 9.1H, Lymphocytes # (Auto) 2.8, Monocytes # (Auto) 0.5, Eosinophils # (Auto) 0.3, Basophils # (Auto) 0.0, Sodium Level 130L, Potassium Level 5.2H, Chloride Level 101, Carbon Dioxide Level 21, Anion Gap 8, Blood Urea Nitrogen 10, Creatinine 1.12, Estimat Glomerular Filtration Rate 52, BUN/ Creatinine Ratio 9, Glucose Level 203H, Calcium Level 8.4L, Phosphorus Level 4.0 , Magnesium Level 1.7L, Total Bilirubin 0.3, Aspartate Amino Transf (AST/SGOT) 13, Alanine Aminotransferase (ALT/SGPT) 9, Alkaline Phosphatase 125, Total Protein 7.0, Albumin 3.1L 03/05/17 07:08: Glucometer 303H 03/05/17 09:08: Glucometer 257H 03/05/17 13:06: Glucometer 250H Assessment/Plan Assessment and Plan 1. Acute Drug Overdose from Oxycontin she obtained off the street--admit and hydrate and monitor neurologically and respiratory in ICU 2. Acute Hypoglycemia--admit on D5 and monitor BS 3. Recent UTI--start abx based off most recent culture 4. Diabetes mellitus, uncontrolled--check HbA1C and will resume insulin once BS stable if needed Problems: Clinical Quality Measures DVT/VTE Risk/Contraindication: Risk Factor Score Per Nursin RFS Level Per Nursing on Admit: 4+=Very High BAILEE HAIDER DO Mar 05, 2017 17:49
[2017-03-05] MEDS: CYCLOBENZAPRINE 10 MG (FLEXERIL) TAB PO PRN (18:04)
[2017-03-05] MEDS: LORazepam INJ 2 MG/ML (ATIVAN) VIAL IVP PRN ×2 (18:04→22:16)
[2017-03-05] MEDS ORDERED: cefTRIAXone INJECTION 1,000 MG in NS (IVPB) 50 ML IV NR (18:15)
[2017-03-05] MEDS: GABAPENTIN 300 MG (NEURONTIN) CAP PO SCH (20:08)
[2017-03-05] MEDS: DULoxetine 30 MG (CYMBALTA) CAP PO SCH (20:08)
[2017-03-05] MEDS: CARVEDILOL 12.5 MG (COREG) TABLET PO SCH (20:08)
[2017-03-05] MEDS: AMITRIPTYLINE 25 MG (ELAVIL) TAB PO SCH (20:08)
[2017-03-05] MEDS ORDERED: OMEPRAZOLE 20 MG (PriLOSEC) CAP NON-FORMULARY PO SCH (21:00)
[2017-03-05] MEDS ORDERED: NON-FORMULARY MEDICATION 1 EA EA (Carvedilol 25 MG) PO SCH (21:00)
[2017-03-05] MEDS: inSUlin (REGULAR) HUMAN 1 UNIT/0.01 ML (CHARGE PER UNIT) SC SCH (21:11)
[2017-03-05] MEDS: inSUlin DETERMIR 1 UNIT/0.01 ML (LEVEMIR) CHARGE PER UNIT SQ SCH (21:11)
[2017-03-06] VITALS: BP 172/87
[2017-03-06] MEDS: NS IV 1000 ML 1,000 ML IV SCH ×3 (00:41→22:38)
[2017-03-06 04:00] VITALS: BP 150/52
[2017-03-06] MEDS: CYCLOBENZAPRINE 10 MG (FLEXERIL) TAB PO PRN (04:13)
[2017-03-06] MEDS: LORazepam INJ 2 MG/ML (ATIVAN) VIAL IVP PRN (04:13)
[2017-03-06] MEDS: inSUlin (REGULAR) HUMAN 1 UNIT/0.01 ML (CHARGE PER UNIT) SC SCH ×4 (06:30→20:53)
[2017-03-06] MEDS: PANTOPRAZOLE 20 MG TABLET (PROTONIX) PO SCH ×2 (06:33→20:10)
[2017-03-06] MEDS: DULoxetine 30 MG (CYMBALTA) CAP PO SCH ×3 (08:47→20:10)
[2017-03-06] MEDS: CARVEDILOL 12.5 MG (COREG) TABLET PO SCH ×2 (08:47→20:10)
[2017-03-06] MEDS: GABAPENTIN 300 MG (NEURONTIN) CAP PO SCH ×3 (08:48→20:10)
[2017-03-06] MEDS: cefTRIAXone INJECTION 1,000 MG in NS (IVPB) 50 ML IV SCH (08:48)
[2017-03-06 10:16] LABS: CREATININE URINE 74 MG/DL; URINE DRUG SCREEN Positive
[2017-03-06 10:17] LABS: BENZODIAZEPINE URINE QUAL DS Negative; METHADONE URINE QUAL DS Negative
[2017-03-06 10:18] LABS: ETHANOL URINE QUAL DS Negative; OPIATES URINE QUAL DS Positive; PCP URINE QUAL DS Negative; PROPOXYPHENE URINE QUAL DS Positive; SALICYLATE URINE Negative; THC URINE QUAL DS Negative
--- NOTE | 2017-03-06 12:26 | Progress Note (SOAP) ---
Subjective Date Seen by Provider: Mar 06, 2017 Time Seen by Provider: 12:26 Subjective/Events-last exam Fwup acute drug overdose with illegal oxycontin, hypoglycemia, DMII--history of noncompliance and uncontrolled, UTI, HTN. Groggy on exam. Objective Exam Vital Signs Date Time Temp Pulse Resp B/P (MAP) Pulse Ox O2 Delivery O2 Flow Rate FiO2 03/06/17 04:00 99.3 76 20 150/52 94 Room Air 03/06/17 00:00 99.1 75 20 172/87 98 Room Air 03/05/17 21:00 Room Air 03/05/17 19:29 176/82 03/05/17 19:28 99.1 78 20 98 Room Air 03/05/17 16:00 98.0 71 20 166/91 98 Room Air 03/05/17 13:00 97.0 64 11 147/81 98 Room Air Capillary Refill : Less Than 3 Seconds General Appearance: Moderate Distress (groggy) Respiratory: Lungs Clear Cardiovascular: Regular Rate, Rhythm Gastrointestinal: normal bowel sounds, non tender, soft Extremity: Non Tender, No Calf Tenderness, No Pedal Edema Neurologic/Psychiatric: Other (groggy) Results Lab Laboratory Tests 03/05/17 13:06: Glucometer 250H 03/05/17 18:07: Glucometer 328H 03/05/17 21:06: Glucometer 280H 03/06/17 06:29: Glucometer 185H 03/06/17 11:00: Glucometer 186H Assessment/Plan Assessment/Plan Assess & Plan/Chief Complaint 1. Acute Drug Overdose due to illegal oxycontin--groggy today--had flexeril and ativan this AM so will DC flexeril and decrease ativan prn dose for withdrawal symptoms 2. Hypoglycemia--resolved 3. UTI--continue rocephin 4. DMII--increase levemir and continue SSI 5. Hypertension--home meds restarted Clinical Quality Measures DVT/VTE Risk/Contraindication: Risk Factor Score Per Nursin RFS Level Per Nursing on Admit: 4+=Very High MIRELA LYLE DO Mar 06, 2017 12:26
[2017-03-06] MEDS ORDERED: LORazepam INJ 2 MG/ML (ATIVAN) VIAL IVP PRN (12:30)
[2017-03-06 16:00] VITALS: BP 192/95
[2017-03-06] MEDS: AMITRIPTYLINE 25 MG (ELAVIL) TAB PO SCH (20:10)
[2017-03-06] MEDS: ACETAMINOPHEN 325 MG TABLET/CAPLET (TYLENOL) PO PRN (20:15)
[2017-03-06 20:50] VITALS: BP 158/70
[2017-03-06] MEDS: inSUlin DETERMIR 1 UNIT/0.01 ML (LEVEMIR) CHARGE PER UNIT SQ SCH (20:53)
[2017-03-07 00:20] VITALS: BP 153/81
[2017-03-07] MEDS: ACETAMINOPHEN 325 MG TABLET/CAPLET (TYLENOL) PO PRN ×3 (02:31→11:29)
[2017-03-07 04:30] VITALS: BP 149/84
[2017-03-07] MEDS: inSUlin (REGULAR) HUMAN 1 UNIT/0.01 ML (CHARGE PER UNIT) SC SCH ×2 (05:07→11:28)
[2017-03-07] MEDS: PANTOPRAZOLE 20 MG TABLET (PROTONIX) PO SCH (05:37)
[2017-03-07] MEDS: CARVEDILOL 12.5 MG (COREG) TABLET PO SCH (08:28)
[2017-03-07] MEDS: DULoxetine 30 MG (CYMBALTA) CAP PO SCH (08:28)
[2017-03-07] MEDS: GABAPENTIN 300 MG (NEURONTIN) CAP PO SCH (08:28)
[2017-03-07] MEDS: NS IV 1000 ML 1,000 ML IV SCH (08:30)
[2017-03-07] MEDS: cefTRIAXone INJECTION 1,000 MG in NS (IVPB) 50 ML IV SCH (08:32)
[2017-03-07 08:33] VITALS: BP 150/94
[2017-03-07] MEDS ORDERED: INSU100I29 SC (10:35)
[2017-03-07] MEDS ORDERED: NABU750T PO (10:35)
[2017-03-07] MEDS ORDERED: ACET-2650 PO (10:35)
[2017-03-07] MEDS ORDERED: INSU100I23 SQ (10:35)
--- NOTE | 2017-03-07 10:37 | Discharge Inst-Simple/Standard ---
Discharge Inst-Standard Discharge Medications New, Converted or Re-Newed RX: Transmitted to Pharmacy Patient Instructions/Follow Up Plan of Care/Instructions/FU: Referral to [facility]--assess for Suboxone Treatment Fwup with me in 1 week Activity as Tolerated: Yes Discharge Diet: Cardiac Diet MIRELA LYLE DO Mar 07, 2017 10:37
--- NOTE | 2017-03-07 10:46 | Discharge Summary ---
Diagnosis/Chief Complaint Date of Admission Mar 04, 2017 at 22:17 Date of Discharge Discharge Date: Mar 07, 2017 Admission Diagnosis Admission Diagnosis 1. Acute Drug Overdose from Oxycontin she obtained off the street--admit and hydrate and monitor neurologically and respiratory in ICU 2. Acute Hypoglycemia--admit on D5 and monitor BS 3. Recent UTI--start abx based off most recent culture 4. Diabetes mellitus, uncontrolled--check HbA1C and will resume insulin once BS stable if needed Discharge Diagnosis 1. Acute Drug Overdose from Oxycontin she obtained off the street--patient currently off narcotic with no evidence of withdrawal 2. Acute Hypoglycemia--resolved 3. Recent UTI--stable 4. Diabetes mellitus, uncontrolled--back on low dose levemir with SSI Reason Hospital Visit This is a 51 year old female with a history of previous drug overdose of oxycodone and recent hypoglycemic episode who was brought to the emergency room via EMS after she became unresponsive. She had eaten at [employer] with her daughter and then on the way home became lethargic and then unresponsive. EMS checked a blood sugar which was 100. Her daughter reported that the patient had obtained oxycontin ER 60mg illegally off [address]. She was given narcan and aroused and was able to talk to EMS, however, once the narcan wore off she once again became lethargic. A repeat of her blood sugar in the emergency room showed a level of 19 so she was given D50 which brought her blood sugar up to the 200s but she then dropped back to the 50s so she was place on D5 fluids and it was decided to admit her to the ICU to monitor her blood sugar and monitor her as the oxycontin came out of her system. She was protecting her airway so there was no indication for intubation. Discharge Summary Hospital Course Hospital Course This is a 51 year old female with a history of previous drug overdose of oxycodone and recent hypoglycemic episode who was brought to the emergency room via EMS after she became unresponsive. She had eating at [employer] with her daughter and then on the way home became lethargic and then unresponsive. EMS checked a blood sugar which was 100. Her daughter reported that the patient had obtained oxycontin ER 60mg illegally off [address]. She was given narcan and aroused and was able to talk to EMS, however, once the narcan wore off she once again became lethargic. A repeat of her blood sugar in the emergency room showed a level of 19 so she was given D50 which brought her blood sugar up to the 200s but she then dropped back to the 50s so she was place on IV fluids with D5 and it was decided to admit her to the ICU to monitor her blood sugar and monitor her as the oxycontin came out of her system. She was protecting her airway so there was no indication for intubation. By the following morning the patient was awake and alert and remorseful for her actions. She stated that she could not find her oxycodone and knew she could not get an early refill so this is why she resorted to getting some off of the street. She is not sure if someone took her pain medications or she just misplaced them. She states her daughter and her daughter's boyfriend had been upset about her taking pain medications and thinks they may have taken them so she would not take anymore pain medications. She was transferred to the medical floor and her IVF were changed to NS. She was also started on low dose levemir with a sliding scale insulin A. She was started on ativan prn for opioid withdrawal. She had grogginess after the ativan 1mg IV so this was decreased to 0.5mg and by the morning of discharge she was awake and alert and wanting her pain medications back. I talked to her about inpatient treatment for narcotic abuse which she was not interested in. We also discussed outpatient addiction treatment, specifically [facility] with possible suboxone. She states this would be something she would be interested in so [facility] was consulted to do a screen on the patient for outpatient discharge planning. She was treated for her UTI that was diagnosed the week prior in the emergency room and will resume her antibiotics as an outpatient. She will be referred to outpatient addiction treatment and fwup with or in 1 week. Labs Laboratory Tests 03/04/17 21:44: Urine Specific [place] 1.010L, Urine Protein 2+H, Urine Glucose (UA) 2+H, Urine Leukocyte Esterase 1+H, Urine RBC (Auto) 1+H, Urine Oxycodone Screen POSITIVEH, Urine Propoxyphene Screen POSITIVEH, Ur Tricyclic Antidepressants Screen POSITIVEH 03/04/17 21:50: White Blood Count 12.8H, Red Blood Count 3.97L, Hematocrit 34L, Mean Platelet Volume 10.6H, Lymphocytes # (Auto) 4.5H, Eosinophils # (Auto) 0.4H, Sodium Level 133L, Potassium Level 3.5L, Creatinine 1.36H, Glucose Level 16*L, Salicylates Level < 5.0L, Acetaminophen Level < 10L 03/04/17 22:42: Glucometer 57*L 03/04/17 23:13: Glucometer 47*L 03/05/17 00:11: 03/05/17 01:14: 03/05/17 02:14: Glucometer 117H 03/05/17 03:32: Glucometer 155H 03/05/17 05:24: Glucometer 199H 03/05/17 05:25: White Blood Count 12.7H, Red Blood Count 3.95L, Hemoglobin 11.4L, Hematocrit 34L , Neutrophils # (Auto) 9.1H, Sodium Level 130L, Potassium Level 5.2H, Glucose Level 203H, Calcium Level 8.4L, Magnesium Level 1.7L, Albumin 3.1L 03/05/17 07:08: Glucometer 303H 03/05/17 09:08: Glucometer 257H 03/05/17 13:06: Glucometer 250H 03/05/17 18:07: Glucometer 328H 03/05/17 21:06: Glucometer 280H 03/06/17 06:29: Glucometer 185H 03/06/17 11:00: Glucometer 186H 03/06/17 16:30: Glucometer 204H 03/06/17 20:45: Glucometer 307H 03/07/17 05:00: Glucometer 117H Procedures None. Discharge Physical Examination Allergies: Coded Allergies: codeine (Verified Allergy, Mild, ITCHING, 01/17/14) Sulfa (Sulfonamide Antibiotics) (Verified Allergy, Unknown, 09/13/05) Vitals & I&Os Vital Signs Date Time Temp Pulse Resp B/P (MAP) Pulse Ox O2 Delivery O2 Flow Rate FiO2 03/07/17 08:33 97.8 70 18 150/94 95 Room Air 03/05/17 12:00 96.00 General Appearance: Alert, Oriented X3, Cooperative, No Acute Distress Respiratory: Clear to Auscultation Cardiovascular: Regular Rate Abdominal: Normal Bowel Sounds, Soft, No Tenderness Psych/Mental Status: Mental Status NL Discharge Home Medications Reviewed and agree with Discharge Medication list on patient's Discharge Instruction sheet Instructions to Patient/Family Please see electronic discharge instructions given to patient. Clinical Quality Measures DVT/VTE Risk/Contraindication: Risk Factor Score Per Nursin RFS Level Per Nursing on Admit: 4+=Very High MIRELA LYLE DO Mar 07, 2017 10:46
[2017-03-07 12:00] VITALS: BP 138/82
[2017-03-07 13:55] VITALS: BP 138/82
[2017-03-09] MEDS ORDERED: INFLUENZA TRIvalent 2017-2018 0.5 ML/45 MCG SYR IM ONE (08:00)
== END 2017-03-07 10:30 | disposition home or self-care (01) ==
LOC: EDUNIT# 21:25 → ER 21:26 → ICU 22:17 → 4TH 03-05 13:15
PROVIDERS: ADMIT Family Medicine; ATTEND Family Medicine
DX: T40.2X1A Poisoning by other opioids, accidental (unintentional), initial encounter (principal); E11.649 Type 2 diabetes mellitus with hypoglycemia without coma; N39.0 Urinary tract infection, site not specified; I10 Essential (primary) hypertension; M54.5 Low back pain; G89.29 Other chronic pain; J44.9 Chronic obstructive pulmonary disease, unspecified; E78.00 Pure hypercholesterolemia, unspecified; F17.210 Nicotine dependence, cigarettes, uncomplicated; Z79.82 Long term (current) use of aspirin; Z79.4 Long term (current) use of insulin; Z79.899 Other long term (current) drug therapy
CPT/HCPCS: 36415; 70450; 71010; 80053; 80306; 80307; 80320; 80329; 81000; 82962; 83735; 83880; 84100; 84484; 85025; 93005; 96374; 96376; G0378

== ENCOUNTER → 2017-09-01 | Outpatient (CLI) | payer MEDICARE, MEDICAID ==
[~2017-09-01] MED LIST changes: +ACET-2650 PO; +ALBU18HF2 INH; +AMIT25TA9 PO; +CARV25TA PO; +CYCL10TA9 PO; +DIPH-639 PO; +IBUP-30 PO; +INSU100I29 SC; +NABU750T PO; +PREG150C PO
--- NOTE | 2017-09-01 12:31 | Diagnostic Imaging Report ---
PROCEDURE: MRI lumbar spine. TECHNIQUE: Multiplanar, multisequence MRI of the lumbar spine was performed without contrast. INDICATION: Chronic lower back pain. COMPARISON: 09/17/2013. FINDINGS: For the purposes of this exam, last well-formed disc space is denoted the L5-S1 level. Evaluation of the static alignment demonstrates slight grade 1 anterolisthesis at the L4-L5 level. There is no evidence of jumped facets. Vertebral body heights are maintained. There is no evidence of acute fracture. Marrow signal is unremarkable. There is mild multilevel intervertebral disc height loss. Visualized portions of the distal cord are unremarkable. Conus terminates at approximately the L1 level. No abnormal intrathecal filling defects are seen. Pre and paravertebral soft tissue structures are unremarkable. Axial images demonstrate the following: T12-L1: There is no large disc bulge or focal protrusion. There is no significant spinal canal or neuroforaminal stenosis. L1-L2: There is no large disc bulge or focal protrusion. There is no significant spinal canal or neuroforaminal stenosis. L2-L3: There is bilateral ligamentum flavum laxity. There is no large disc bulge or focal protrusion. There is no significant spinal canal or neuroforaminal stenosis. L3-L4: There is slight posterior disc bulge. There is also bilateral facet arthropathy and ligamentum flavum laxity. As a result, there is minimal spinal canal and bilateral neuroforaminal narrowing. L4-L5: There is broad-based posterior disc bulge and bilateral ligamentum flavum laxity and facet arthropathy. As a result, there is [id number] spinal canal stenosis. Thecal sac is narrowed to approximately 7 mm in AP dimension. There is also mild narrowing of the bilateral neuroforamen. L5-S1: There is bilateral facet arthropathy. There is no large disc bulge or focal protrusion. There is no significant spinal canal or neuroforaminal stenosis. IMPRESSION: 1. Multilevel degenerative changes of the lumbar spine, greatest at the L4-L5 level. 2. No acute fracture or dislocation of the lumbar spine. Dictated by: Dictated on workstation # [id number]
== END ==
LOC: RAD 11:11
PROVIDERS: ATTEND Family Medicine
DX: M51.36 Other intervertebral disc degeneration, lumbar region (principal); M47.816 Spondylosis without myelopathy or radiculopathy, lumbar region
CPT/HCPCS: 72148

== ENCOUNTER → 2017-10-06 | Outpatient (CLI) | payer MEDICARE, MEDICAID ==
--- NOTE | 2017-10-06 13:55 | Diagnostic Imaging Report ---
INDICATION: Fall with twisting her left ankle. TIME OF EXAMINATION: 2:21 PM. FINDINGS: Three views of the left ankle demonstrate normal alignment. The ankle mortise is well-maintained. The talar dome is smooth. No fracture or dislocation is seen. There is soft tissue swelling laterally. There is a large plantar calcaneal spur. IMPRESSION: Soft tissue swelling. No acute bony abnormality is detected. Dictated by: Dictated on workstation # [id number]
--- NOTE | 2017-10-06 13:57 | Diagnostic Imaging Report ---
INDICATION: Fall with injury to left foot. Time of exam 2:18 PM 3 views left foot demonstrates the metatarsals to be intact. The phalanges are intact. Midfoot and hindfoot are unremarkable apart from large plantar calcaneal spur. No fractures are seen. IMPRESSION: No acute bony abnormality is detected. Report called to Allyssa Kaiser by sam at 1:56 p.m. Dictated by: Dictated on workstation # [id number]
== END ==
LOC: RAD 13:07
PROVIDERS: ATTEND Nurse Practitioner Family
DX: S99.912A Unspecified injury of left ankle, initial encounter (principal); X50.0XXA Overexertion from strenuous movement or load, initial encounter
CPT/HCPCS: 73610; 73630

== ENCOUNTER 2017-12-16 23:07 | Emergency (ER) | payer MEDICARE, MEDICAID | END 2017-12-16 23:30 | disposition left against medical advice (07) | LOC: EDUNIT# 23:07 → ER 23:09 | DX: R40.4 Transient alteration of awareness (principal) ==

== ENCOUNTER 2018-02-07 10:04 | Inpatient (IN) | payer MEDICARE, MEDICAID ==
[~2018-02-07] VITALS: Ht 157.5 cm; Wt 97.1 kg
[2018-02-07] MEDS ORDERED: fentaNYL INJECTION 100 MCG/2 ML AMP IVP ONE ×2 (10:15→11:00)
[2018-02-07 10:22] LABS: BASOPHILS % (AUTO) 0 % (0-10); EOSINOPHILS % (AUTO) 0 % (0-10); HEMATOCRIT 38 % (35-52); HEMOGLOBIN 13.4 G/DL (11.5-16.0); LYMPHOCYTES # (AUTO) 1.6 X 10^3 (1.0-4.0); LYMPHOCYTES % (AUTO) 14 % (12-44); MEAN CORPUSCULAR HEMOGLOBIN 30 PG (25-34); MEAN CORPUSCULAR HGB CONC 35 G/DL (32-36); MEAN CORPUSCULAR VOLUME 83 FL (80-99); MEAN PLATELET VOLUME 10.7 FL (7.4-10.4); MONOCYTES # (AUTO) 0.6 X 10^3 (0.0-1.0); MONOCYTES % (AUTO) 5 % (0-12); NEUTROPHILS # (AUTO) 9.1 X 10^3 (1.8-7.8); NEUTROPHILS % (AUTO) 81 % (42-75); PLATELET COUNT 296 10^3/uL (130-400); RED BLOOD COUNT 4.53 10^6/uL (4.35-5.85); RED CELL DISTRIBUTION WIDTH 13.9 % (10.0-14.5); WHITE BLOOD COUNT 11.3 10^3/uL (4.3-11.0)
[2018-02-07 10:32] LABS: BILIRUBIN,URINE NEGATIVE (NEGATIVE); CLARITY,URINE SLIGHTLY CLOUDY; COLOR,URINE YELLOW; GLUCOSE, URINE (UA) 4+ (NEGATIVE); KETONES,URINE 1+ (NEGATIVE); LEUKOCYTE ESTERASE ,URINE 3+ (NEGATIVE); NITRITE,URINE NEGATIVE (NEGATIVE); PH,URINE 7 (5-9); PROTEIN,URINE 4+ (NEGATIVE); UROBILINOGEN,URINE NORMAL (NORMAL)
[2018-02-07 10:52] LABS: BACTERIA,URINE MODERATE /HPF; WBC,URINE TNTC /HPF
[2018-02-07 10:56] LABS: ALBUMIN 3.6 GM/DL (3.2-4.5); CALCIUM 10.1 MG/DL (8.5-10.1); CREATININE SERUM 1.23 MG/DL (0.60-1.30); POTASSIUM 4.1 MMOL/L (3.6-5.0); TOTAL PROTEIN 7.8 GM/DL (6.4-8.2)
[2018-02-07] MEDS ORDERED: NS IV 1000 ML 1,000 ML IV ONE (10:56)
[2018-02-07] MEDS ORDERED: HYDROmorphone 2 MG/ML VIAL (DILAUDID) IV STA ×2 (11:25→13:00)
[2018-02-07] MEDS ORDERED: PIPERACILLIN SODIUM/TAZOBACTAM 4.5 GM in NS (IVPB) 100 ML IV ONE (11:30)
[2018-02-07] MEDS ORDERED: MELATONIN 3 MG TABLET PO PRN (11:45)
[2018-02-07] MEDS ORDERED: HYDROcodone/APAP 5 MG/325 MG (LORTAB) TAB PO PRN (11:45)
[2018-02-07] MEDS ORDERED: NS 250 ML (IVPB) BAG IV ONE (11:45)
[2018-02-07] MEDS ORDERED: inSUlin (REGULAR) HUMAN 1 UNIT/0.01 ML (CHARGE PER UNIT) SC ONE ×2 (11:45→13:45)
[2018-02-07] MEDS ORDERED: BISACODYL 10 MG SUPP (DULCOLAX) PR PRN (11:45)
[2018-02-07] MEDS ORDERED: MILK OF MAGNESIA 400 MG/5 ML 30 ML UDC PO PRN (11:45)
[2018-02-07] MEDS ORDERED: ONDANSETRON 4 MG/2 ML (SDV) Z0FRAN IV PRN (11:45)
[2018-02-07] MEDS ORDERED: LORazepam INJ 2 MG/ML (ATIVAN) VIAL IVP PRN (11:45)
[2018-02-07] MEDS ORDERED: ACETAMINOPHEN 500 MG TAB (TYLENOL) PO PRN (11:45)
[2018-02-07] MEDS ORDERED: fentaNYL INJECTION 100 MCG/2 ML AMP IVP PRN (11:45)
[2018-02-07] MEDS ORDERED: IOHEXOL 350 MG/ML 100 ML (OMNIPAQUE 350) VIAL IV ONE (11:45)
[2018-02-07] MEDS ORDERED: ANTACID SUSP 30 ML UDC (MYLANTA) PO PRN (11:45)
[2018-02-07] MEDS: CATHETER FLUSH 10 ML SYR IV PRN (12:10)
--- NOTE | 2018-02-07 12:29 | ED Abdominal Pain ---
General Chief Complaint: Abdominal/GI Problems Stated Complaint: ABD PAIN Nursing Triage Note: c/o abg pain since , nausea. epigastric pain radiating to upper back, Sepsis Screen: No Definite Risk Source of Information: Patient Exam Limitations: No Limitations History of Present Illness Date Seen by Provider: Feb 07, 2018 Time Seen by Provider: 10:05 Initial Comments This 52-year-old woman presents to the emergency room via EMS with complaints of severe abdominal pain and nausea that has been worsening for the past 2 or 3 days. She has a history of pancreatitis and states this feels similar. She also has diabetes. She has not taken her insulin this morning. She rates her pain as a 10 on the pain scale. She is afebrile. EMS administered Zofran 4 mg in route. She denies any alcohol use. She does admit to recent marijuana use. Allergies and Home Medications Allergies Coded Allergies: codeine (Verified Allergy, Mild, ITCHING, 02/07/18) Sulfa (Sulfonamide Antibiotics) (Verified Allergy, Unknown, 09/13/05) Home Medications Acetaminophen 650 Mg Tablet.er, 650 MG PO Q6H Prescribed by: MIRELA LYLE on 03/07/17 1035 Albuterol Sulfate 18 Gm Hfa.aer.ad, 2 PUFF INH Q6H PRN for SHORTNESS OF BREATH, (Reported) Amitriptyline HCl 25 Mg Tablet, 25 MG PO HS, (Reported) Carvedilol 25 Mg Tablet, 25 MG PO BID, (Reported) Cephalexin 500 Mg Capsule, 500 MG PO QID, (Reported) 7 DAY THERAPY FILLED 02-27-17 Cyclobenzaprine HCl 10 Mg Tablet, 10 MG PO TID PRN for MUSCLE SPASMS, (Reported) Duloxetine HCl 30 Mg Capsule.dr, 30 MG PO TID, (Reported) Gabapentin 300 Mg Capsule, 300 MG PO TID, (Reported) Insulin Detemir 100 Unit/1 Ml Insuln.pen, 25 UNITS SC BID LAST FILLED 1 11-05-16 Prescribed by: MIRELA LYLE on 03/07/17 1035 Insulin Lispro 100 Unit/1 Ml Insuln.pen, 5 UNITS SQ AC UNABLE TO VERIFY LAST FILL DATE Prescribed by: MIRELA LYLE on 03/07/17 1035 Nabumetone 750 Mg Tablet, 750 MG PO BID PRN for PAIN-MODERATE Prescribed by: MIRELA LYLE on 03/07/17 1035 Omeprazole 20 Mg Capsule., 20 MG PO BID, (Reported) Patient Home Medication List Home Medication List Reviewed: Yes Review of Systems Review of Systems Constitutional: no symptoms reported EENTM: No Symptoms Reported Respiratory: No Symptoms Reported Cardiovascular: No Symptoms Reported Gastrointestinal: See HPI Genitourinary: No Symptoms Reported Musculoskeletal: no symptoms reported Skin: no symptoms reported Psychiatric/Neurological: No Symptoms Reported Endocrine: See HPI Hematologic/Lymphatic: No Symptoms Reported Past Zwzuxnw-Ukdfjh-Gfzunx Hx Past Med/Social Hx: Reviewed Nursing Past Med/Soc Hx Patient Social History Alcohol Use: Occasionally Uses Recreational Drug Use: Yes (thc) Drug of Choice: opioids Type Used: Cigarettes 2nd Hand Smoke Exposure: Yes Recent Foreign Travel: No Contact w/Someone Who Travel: No Recent Infectious Disease Expo: No Recent Hopitalizations: No Physical Abuse: No Sexual Abuse: No Mistreated: No Fear: No Immunizations Up To Date Tetanus Booster (TDap): Less than 5yrs Date of Pneumonia Vaccine: Jun 09, 2008 Date of Influenza Vaccine: Mar 29, 2015 Seasonal Allergies Seasonal Allergies: Yes Past Medical History Surgeries: Yes (Left breast cyst, x2, ORIF Right ankle) Section, Gallbladder, Orthopedic, Tubal Ligation Respiratory: Yes (CPAP not used after last sleep study) Sleep Apnea, COPD Cardiac: Yes Chronic Edema/Swelling, High Cholesterol, Hypertension Neurological: Yes Neuropathy 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 Disorders: No 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 Disorders: Denies [employer] History: Tubal Ligation Sexually Transmitted Disease: No HIV/AIDS: No Genitourinary: Yes Renal Failure, UTI-Chronic Gastrointestinal: Yes Gastroesophageal Reflux, Pancreatitis Musculoskeletal: Yes (right ankle fx with steel plate) Degenerate Disk Disease, Chronic Back Pain Endocrine: Yes Diabetes, Insulin dep HEENT: No Cancer: No Psychosocial: Yes Sleep Difficulties, Anxiety, Depression Nursing Suicide Risk Score: 0 Integumentary: Yes (FREQUENT CELLULITIS--LEGS) Recent Skin Changes Blood Disorders: No Adverse Reaction/Blood Tranf: No Family Medical History Reviewed Nursing Family Hx Completed stroke 19 FATHER Congenital heart disease 19 FATHER Diabetes mellitus 19 FATHER Myocardial infarction 19 FATHER Psychosocial problem 19 FATHER (depression) 19 MOTHER (depression) Respiratory disorder 19 MOTHER (copd) No Pertinent Family Hx Physical Exam Vital Signs Vital Signs - First Documented 02/07/18 10:04 Temp 98.3 Pulse 72 Resp 16 B/P (MAP) 183/114 (137) Pulse Ox 98 Capillary Refill : Less Than 3 Seconds Height/Weight/BMI Height: 5'2.00" Weight: 214lbs. 8.0oz. [id number]; 41.5 BMI Method:Stated General Appearance: WD/WN, mild distress HEENT: PERRL/EOMI, normal ENT inspection Neck: normal inspection Respiratory: lungs clear, normal breath sounds, no respiratory distress, no accessory muscle use Cardiovascular: regular rate, rhythm, no edema, no murmur Gastrointestinal: normal bowel sounds, soft, tenderness (throughout the upper abdomen, focused in the epigastrium) Extremities: normal inspection, no pedal edema Neurologic/Psychiatric: sweat box attendant II-XII nml as tested, no motor/sensory deficits, alert, normal mood/affect, oriented x 3 Skin: normal color, warm/dry Progress/Results/Core Measures Results/Orders Lab Results Laboratory Tests Test 02/07/18 10:00 02/07/18 10:19 02/07/18 11:38 Range/Units White Blood Count 11.3 H 4.3-11.0 10^3/uL Red Blood Count 4.53 4.35-5.85 10^6/uL Hemoglobin 13.4 11.5-16.0 G/DL Hematocrit 38 35-52 % Mean Corpuscular Volume 83 80-99 FL Mean Corpuscular Hemoglobin 30 25-34 PG Mean Corpuscular Hemoglobin Concent 35 32-36 G/DL Red Cell Distribution Width 13.9 10.0-14.5 % Platelet Count 296 130-400 10^3/uL Mean Platelet Volume 10.7 H 7.4-10.4 FL Neutrophils (%) (Auto) 81 H 42-75 % Lymphocytes (%) (Auto) 14 12-44 % Monocytes (%) (Auto) 5 0-12 % Eosinophils (%) (Auto) 0 0-10 % Basophils (%) (Auto) 0 0-10 % Neutrophils # (Auto) 9.1 H 1.8-7.8 X 10^3 Lymphocytes # (Auto) 1.6 1.0-4.0 X 10^3 Monocytes # (Auto) 0.6 0.0-1.0 X 10^3 Eosinophils # (Auto) 0.0 0.0-0.3 10^3/uL Basophils # (Auto) 0.0 0.0-0.1 10^3/uL Sodium Level 130 L 135-145 MMOL/L Potassium Level 4.1 3.6-5.0 MMOL/L Chloride Level 92 L 98-107 MMOL/L Carbon Dioxide Level 24 21-32 MMOL/L Anion Gap 14 5-14 MMOL/L Blood Urea Nitrogen 9 7-18 MG/DL Creatinine 1.23 0.60-1.30 MG/DL Estimat Glomerular Filtration Rate 46 BUN/Creatinine Ratio 7 Glucose Level 438 *H 70-105 MG/DL Calcium Level 10.1 8.5-10.1 MG/DL Corrected Calcium 10.4 H 8.5-10.1 MG/DL Total Bilirubin 1.0 0.1-1.0 MG/DL Aspartate Amino Transf (AST/SGOT) 8 5-34 U/L Alanine Aminotransferase (ALT/SGPT) 9 0-55 U/L Alkaline Phosphatase 137 H 40-136 U/L Total Protein 7.8 6.4-8.2 GM/DL Albumin 3.6 3.2-4.5 GM/DL Lipase 292 H 8-78 U/L Urine Color YELLOW Urine Clarity SLIGHTLY CLOUDY Urine pH 7 5-9 Urine Specific [place] 1.010 L 1.016-1.022 Urine Protein 4+ NEGATIVE Urine Glucose (UA) 4+ H NEGATIVE Urine Ketones 1+ H NEGATIVE Urine Nitrite NEGATIVE NEGATIVE Urine Bilirubin NEGATIVE NEGATIVE Urine Urobilinogen NORMAL NORMAL MG/DL Urine Leukocyte Esterase 3+ H NEGATIVE Urine RBC (Auto) 2+ H NEGATIVE Urine RBC NONE /HPF Urine WBC TNTC H /HPF Urine Squamous Epithelial Cells 5-10 /HPF Urine Crystals NONE /LPF Urine Bacteria MODERATE H /HPF Urine Casts NONE /LPF Urine Mucus NEGATIVE /LPF Urine Culture Indicated YES Glucometer 418 *H 70-110 MG/DL My Orders Orders - MICA CONTRERAS MD Saline Lock/Iv-Start (02/07/18 10:11) Cbc With Automated Diff (02/07/18 10:11) Comprehensive Metabolic Panel (02/07/18 10:11) Lipase (02/07/18 10:11) Ua Culture If Indicated (02/07/18 10:11) Fentanyl Injection (Sublimaze Injection (02/07/18 10:15) Urine Culture (02/07/18 10:19) Saline Lock/Iv-Start (02/07/18 10:56) Ns Iv 1000 Ml (Sodium Chloride 0.9%) (02/07/18 10:56) Fentanyl Injection (Sublimaze Injection (02/07/18 11:00) Hydromorphone Injection (Dilaudid Inject (02/07/18 11:25) Piperacillin Sodium/Tazobactam (Zosyn Vi (02/07/18 11:30) Ct Abdomen/Pelvis W (02/07/18 11:27) Accucheck Stat ONCE (02/07/18 11:28) Iohexol Injection (Omnipaque 350 Mg/Ml 1 (02/07/18 11:45) Sodium Chloride Flush (Catheter Flush Sy (02/07/18 11:45) Ns (Ivpb) (Sodium Chloride 0.9%) (02/07/18 11:45) Pharmacy Communication (Pharmacy Communi (02/07/18 11:34) Insulin (Regular) Human (Humulin R (Per (02/07/18 11:45) Hydromorphone Injection (Dilaudid Inject (02/07/18 13:00) Medications Given in ED Current Medications Medications Dose Ordered Sig/Amy Route Start Time Stop Time Status Last Admin Dose Admin Fentanyl Citrate 50 mcg ONCE ONCE IVP 02/07/18 10:15 02/07/18 10:16 DC 02/07/18 10:19 50 MCG Fentanyl Citrate 50 mcg ONCE ONCE IVP 02/07/18 11:00 02/07/18 11:01 DC 02/07/18 11:02 50 MCG Insulin Human Regular 10 unit ONCE ONCE SC 02/07/18 11:45 02/07/18 11:46 DC 02/07/18 11:52 10 UNIT Iohexol 75 ml ONCE ONCE IV 02/07/18 11:45 02/07/18 11:46 DC 02/07/18 12:10 60 ML Piperacillin Sod/ Tazobactam Sod 4.5 gm/Sodium Chloride 100 ml @ 200 mls/hr ONCE ONCE IV 02/07/18 11:30 02/07/18 11:59 DC 02/07/18 11:37 200 MLS/HR Sodium Chloride 10 ml NEEDED PRN IV 02/07/18 11:45 02/07/18 12:10 10 ML Sodium Chloride 250 ml ONCE ONCE IV 02/07/18 11:45 02/07/18 11:46 DC 02/07/18 12:10 80 ML Sodium Chloride 1,000 ml @ 0 mls/hr Q0M ONCE IV 02/07/18 10:56 02/07/18 10:57 DC 02/07/18 11:01 1,000 MLS/HR Vital Signs/I&O 02/07/18 02/07/18 10:04 12:30 Temp 98.3 Pulse 72 71 Resp 16 16 B/P (MAP) 183/114 (137) 154/56 (88) Pulse Ox 98 97 Blood Pressure Mean: 137 FSBG Bedside Testing Finger Stick Blood Glucose: 418 Blood Glucose Action Taken: DR NOTIFIED Progress Progress Note #1: Time: 11:30 Progress Note Patient was given a liter of IV fluid. Pain has been treated with fentanyl 50 g IV 2 followed by Dilaudid. Lipase was elevated. CT scan was ordered for further evaluation of this severe abdominal pain. Zosyn was started as initial antibiotic therapy for urinary tract infection and possible intra-abdominal pathology. CT is pending. Insulin 10 units subcutaneously was ordered for hyperglycemia. Progress Note #2: Progress Note CT revealed pancreatitis and inflammation of the bladder wall. Patient received a total of 2 doses of fentanyl and 2 doses of Dilantin. Zosyn was given in the ER. Further treatment of UTI will be given with a Rocephin on the floor. Patient will be NPO. Dr. Montoya was consulted Dr. Mercado's request. The 10 units of subcutaneous insulin did not significantly change blood sugar. An additional 20 units subcutaneously were ordered prior to admission. Diagnostic Imaging Diagonstic Imaging: CT Plain Films/CT/US/NM/MRI: abdomen, pelvis Comments CT abdomen and pelvis viewed by me and report reviewed. See report below: NAME: CHEPE CASTANEDA MED REC#: [id number] PT STATUS: REG ER : 1965 PHYSICIAN: MICA CONTRERAS MD ADMIT DATE: 02/07/18/ER Signed Date of Exam: 02/07/18 CT ABDOMEN/PELVIS W PROCEDURE: CT abdomen and pelvis with contrast. TECHNIQUE: Multiple contiguous axial images were obtained through the abdomen and pelvis after administration of intravenous contrast. INDICATION: Abdominal pain, pancreatitis. COMPARISON: 01/21/2014 FINDINGS: There is minimal bibasilar atelectasis. The liver demonstrates diffusely decreased density throughout. No focal hepatic mass. The spleen is unremarkable. The adrenal glands are unremarkable. There is mild pancreatic ductal dilatation. Calcifications are identified within the pancreatic head and uncinate process. Fat stranding is noted about the pancreas, particularly the head and neck of the pancreas. The calcifications within the pancreatic head appear new since 2014. No focal fluid collection adjacent to the pancreas. Cholecystectomy. The common bile duct is at the upper limits of normal measuring 0.9 cm. This is considered within normal limits given patient's postcholecystectomy status, though this has increased in size since 2014. No intrahepatic biliary dilatation. The kidneys are unremarkable. No aneurysmal dilatation of the abdominal aorta. Mild thickening of the urinary bladder wall. The uterus and adnexal structures are unremarkable for age. Mild colonic diverticulosis without CT evidence of diverticulitis. The appendix is unremarkable. No bowel obstruction or pneumatosis. Splenule is present. Pancreatic and periaortic lymph nodes are slightly prominent in size. There is no free air. Mild scattered osseous degenerative changes without acute osseous abnormality. IMPRESSION: Findings consistent with acute pancreatitis. No focal fluid collection is identified to suggest abscess formation. Given underlying calcifications within the pancreatic head, a component of chronic pancreatitis is likely. The common bile duct is at the upper limits of normal in size given postcholecystectomy status, though this has increased since 2014. Fatty infiltration of the liver. Mild pancreatic ductal dilatation. Mild mural thickening of the urinary bladder. This could relate to underlying cystitis. Recommend correlation with urinary analysis. Additional findings as above. Dictated by: Dictated on workstation # [id number] Dict: 02/07/18 1219 Trans: 02/07/18 1257 Interpreted by: LJ MURRY MD Electronically signed by: LJ MURRY MD 02/07/18 1257 Departure Communication (Admissions) Time/Spoke to Admitting Phy: 13:00 Dr. Mercado Time/Spoke to Consulting Phy: 13:05 Dr. Montoya Impression Primary Impression: Acute on chronic pancreatitis Additional Impressions: Nausea & vomiting Qualified Codes: R11.2 - Nausea with vomiting, unspecified Skin abscess Qualified Codes: L02.11 - Cutaneous abscess of neck Hyperglycemia Urinary tract infection Qualified Codes: N39.0 - Urinary tract infection, site not specified Disposition: ADMITTED INPATIENT Condition: Improved Admissions Decision to Admit Reason: Admit from ER (General) Decision to Admit/Date: Feb 07, 2018 Time/Decision to Admit Time: 13:00 Departure-Patient Inst. Referrals: MIRELA LYLE DO (PCP/Family) Primary Care Physician MICA CONTRERAS MD Feb 07, 2018 12:29
[2018-02-07 12:30] VITALS: BP 154/56
--- NOTE | 2018-02-07 12:44 | Diagnostic Imaging Report ---
PROCEDURE: CT abdomen and pelvis with contrast. TECHNIQUE: Multiple contiguous axial images were obtained through the abdomen and pelvis after administration of intravenous contrast. INDICATION: Abdominal pain, pancreatitis. COMPARISON: 01/21/2014 FINDINGS: There is minimal bibasilar atelectasis. The liver demonstrates diffusely decreased density throughout. No focal hepatic mass. The spleen is unremarkable. The adrenal glands are unremarkable. There is mild pancreatic ductal dilatation. Calcifications are identified within the pancreatic head and uncinate process. Fat stranding is noted about the pancreas, particularly the head and neck of the pancreas. The calcifications within the pancreatic head appear new since 2014. No focal fluid collection adjacent to the pancreas. Cholecystectomy. The common bile duct is at the upper limits of normal measuring 0.9 cm. This is considered within normal limits given patient's postcholecystectomy status, though this has increased in size since 2014. No intrahepatic biliary dilatation. The kidneys are unremarkable. No aneurysmal dilatation of the abdominal aorta. Mild thickening of the urinary bladder wall. The uterus and adnexal structures are unremarkable for age. Mild colonic diverticulosis without CT evidence of diverticulitis. The appendix is unremarkable. No bowel obstruction or pneumatosis. Splenule is present. Pancreatic and periaortic lymph nodes are slightly prominent in size. There is no free air. Mild scattered osseous degenerative changes without acute osseous abnormality. IMPRESSION: Findings consistent with acute pancreatitis. No focal fluid collection is identified to suggest abscess formation. Given underlying calcifications within the pancreatic head, a component of chronic pancreatitis is likely. The common bile duct is at the upper limits of normal in size given postcholecystectomy status, though this has increased since 2014. Fatty infiltration of the liver. Mild pancreatic ductal dilatation. Mild mural thickening of the urinary bladder. This could relate to underlying cystitis. Recommend correlation with urinary analysis. Additional findings as above. Dictated by: Dictated on workstation # [id number]
[2018-02-07 14:00] VITALS: BP 190/98
[2018-02-07] MEDS ORDERED: ONDANSETRON 4 MG/2 ML (SDV) Z0FRAN IVP PRN (14:15)
[2018-02-07 14:31] VITALS: BP 171/92
[2018-02-07] MEDS: NS IV 1000 ML 1,000 ML IV SCH ×2 (14:37→21:39)
[2018-02-07] MEDS: cefTRIAXone 1 GM/NS 50 ML IVPB IV SCH ×2 (14:37)
[2018-02-07 14:58] VITALS: BP 183/114
[2018-02-07] MEDS ORDERED: RT-ALBUTEROL SULF 2.5 MG/3 ML PRE-MIX VIAL INH PRN ×2 (15:00→17:30)
[2018-02-07] MEDS: HYDROmorphone 2 MG/ML VIAL (DILAUDID) IV PRN ×4 (15:03→22:10)
[2018-02-07] MEDS: CIPROFLOXACIN IV 400MG/200ML 200 ML IV SCH (15:03)
[2018-02-07 15:52] VITALS: BP 145/75
[2018-02-07] MEDS ORDERED: inSUlin ASPART (NovoLOG) 1 UNIT/0.01 ML (CHARGE PER UNIT) SC SCH (16:00)
[2018-02-07] MEDS ORDERED: TIZA4TAB3 PO (16:58)
[2018-02-07] MEDS ORDERED: PREG100C PO (16:58)
[2018-02-07] MEDS ORDERED: INSU100I29 SQ (17:02)
[2018-02-07] MEDS ORDERED: ACET-2650 PO (17:02)
[2018-02-07] MEDS ORDERED: INSU100I14 SC (17:02)
[2018-02-07] MEDS ORDERED: NON-FORMULARY MEDICATION 1 EA EA (Acetaminophen (Tylenol Arthritis) 650 MG) PO PRN (17:30)
[2018-02-07] MEDS ORDERED: inSUlin DETERMIR 1 UNIT/0.01 ML (LEVEMIR) CHARGE PER UNIT SQ ONE ×2 (17:30→17:59)
--- NOTE | 2018-02-07 19:28 | CONSULTATION REPORT ---
DATE OF SERVICE: ATTENDING PRIMARY CARE PHYSICIAN: Dr. Haider. HISTORY OF PRESENT ILLNESS: The patient is a 52-year-old female who presented to the Emergency Department with epigastric abdominal pain. She reports that this began approximately 3 days ago and was associated with nausea. The pain increased in severity and was described as sharp in nature. She has a history of pancreatitis and states her symptoms were similar to her previous episodes. She is also an insulin-dependent diabetic. She is on a number of different medications. She is status post laparoscopic cholecystectomy with no abnormal common bile duct dilatation. She does not report any alcohol use. A CT scan was performed, which did show inflammation around the head and uncinate process of the pancreas. This appears to be a mild bylmp-hw-sgldndm pancreatitis. PAST MEDICAL HISTORY: Insulin-dependent diabetes, hypercholesterolemia, hypertension, lower extremity edema, COPD, sleep apnea, gastroesophageal reflux disease, history of pancreatitis, anxiety, depression. PAST SURGICAL HISTORY: section x2, left breast biopsy, right ankle ORIF, laparoscopic cholecystectomy, tubal ligation. ALLERGIES: CODEINE, SULFA. MEDICATIONS: Albuterol 2 puffs q.6h. p.r.n., amitriptyline 25 mg daily, carvedilol 25 mg b.i.d., cephalexin 500 mg q.i.d., cyclobenzaprine 10 mg t.i.d. p.r.n., duloxetine 30 mg t.i.d., gabapentin 300 mg t.i.d., detemir insulin 25 units b.i.d., lispro insulin 5 units a.c., nabumetone 750 mg b.i.d. p.r.n., omeprazole 20 mg b.i.d. SOCIAL HISTORY: Positive smoke 30 pack years. States no alcohol. Recreational marijuana. FAMILY HISTORY: Father stroke, diabetes, myocardial infarction. VITAL SIGNS: Temperature 98.3, blood pressure 183/114, pulse 72, respirations 16, pulse ox 98% on 4 liters nasal cannula. REVIEW OF SYSTEMS: This is a well-nourished female currently guarded secondary to the abdominal pain. She reports mild shortness of breath; however, this is not new due to her COPD. No new cough or sputum production. No chest pain, palpitations, diaphoresis. Intermittent nausea, no vomiting. History of constipation, no red blood per rectum, no dark tarry stools. No fever, chills, no recent inadvertent weight loss. All other review of systems negative. PHYSICAL EXAMINATION: CHEST: Distant breath sounds bilaterally. HEART: Regular, no murmurs. EXTREMITIES: +2/3 bilateral lower extremity edema with chronic venous insufficiency changes. Negative Homans sign. HEENT: No scleral icterus. NECK: No cervical lymphadenopathy. ABDOMEN: Soft, nondistended. There is pain in the mid abdominal region with voluntary guarding, no rebound. SKIN: Warm, dry. LABORATORY DATA: WBC 11.3, hemoglobin 13.4, hematocrit 38, platelets 296, glucose 438, total bilirubin 1.0, lipase 292. Urinalysis 3+ leukocyte esterase and moderate bacteria. ASSESSMENT AND PLAN: A 52-year-old female with mild lwwij-cr-prztqxi pancreatitis. The most likely etiology is secondary to diabetes; however, could also be due to medications. We will proceed with conservative management with IV hydration and bowel rest with a clear liquid diet and follow her clinically with vital signs and physical examination. Job ID: [id number] DocumentID: [id number] Dictated Date: 02/07/2018 14:25:39 Aircraft Designer Date: 02/07/2018 19:28:14 Dictated By: DANIAL MENDOZA MD
[2018-02-07 20:05] VITALS: BP 114/69
[2018-02-07] MEDS ORDERED: ACETAMINOPHEN 325 MG TABLET PO PRN (20:30)
[2018-02-07] MEDS ORDERED: FUROSEMIDE 40 MG/4 ML INJ (LASIX) IV SCH (21:00)
[2018-02-07] MEDS ORDERED: OMEPRAZOLE 20 MG (PriLOSEC) CAP NON-FORMULARY PO SCH (21:00)
[2018-02-07] MEDS ORDERED: NON-FORMULARY MEDICATION 1 EA EA (Carvedilol 25 MG) PO SCH (21:00)
[2018-02-07] MEDS ORDERED: DEXTROSE 50% 50 ML (IMS) SYR ONE (21:02)
[2018-02-07] MEDS: inSUlin ASPART (NovoLOG) 1 UNIT/0.01 ML (CHARGE PER UNIT) SC SCH (21:16)
[2018-02-07] MEDS ORDERED: D5 NS 1000 ML IV SOLUTION 1,000 ML IV ONE (21:51)
[2018-02-07] MEDS: D5 NS 1000 ML IV SOLUTION 1,000 ML IV SCH (22:01)
[2018-02-07] MEDS: AMITRIPTYLINE 25 MG (ELAVIL) TAB PO SCH (22:01)
[2018-02-07] MEDS: PREGABALIN 100 MG (LYRICA) CAPSULE PO SCH (22:01)
[2018-02-07] MEDS: DULoxetine 30 MG (CYMBALTA) CAP PO SCH (22:01)
[2018-02-08] VITALS (7 sets, daily range): BP systolic 96–137; BP diastolic 51–85
[2018-02-08] MEDS: HYDROmorphone 2 MG/ML VIAL (DILAUDID) IV PRN ×6 (00:22→16:14)
[2018-02-08] MEDS: CIPROFLOXACIN IV 400MG/200ML 200 ML IV SCH ×2 (03:22→14:27)
[2018-02-08] MEDS: D5 NS 1000 ML IV SOLUTION 1,000 ML IV SCH ×3 (06:17→16:15)
[2018-02-08 06:31] LABS: BASOPHILS % (AUTO) 0 % (0-10); EOSINOPHILS # (AUTO) 0.1 10^3/uL (0.0-0.3); EOSINOPHILS % (AUTO) 1 % (0-10); HEMATOCRIT 36 % (35-52); HEMOGLOBIN 12.4 G/DL (11.5-16.0); LYMPHOCYTES # (AUTO) 1.4 X 10^3 (1.0-4.0); LYMPHOCYTES % (AUTO) 17 % (12-44); MEAN CORPUSCULAR HEMOGLOBIN 29 PG (25-34); MEAN CORPUSCULAR HGB CONC 34 G/DL (32-36); MEAN CORPUSCULAR VOLUME 85 FL (80-99); MEAN PLATELET VOLUME 10.4 FL (7.4-10.4); MONOCYTES # (AUTO) 0.8 X 10^3 (0.0-1.0); MONOCYTES % (AUTO) 10 % (0-12); NEUTROPHILS # (AUTO) 5.8 X 10^3 (1.8-7.8); NEUTROPHILS % (AUTO) 73 % (42-75); PLATELET COUNT 249 10^3/uL (130-400); RED BLOOD COUNT 4.26 10^6/uL (4.35-5.85); RED CELL DISTRIBUTION WIDTH 14.1 % (10.0-14.5)
[2018-02-08 06:54] LABS: ALANINE AMINOTRANSFERASE 29 U/L (0-55); ALBUMIN 2.9 GM/DL (3.2-4.5); ALKALINE PHOSPHATASE 148 U/L (40-136); BILIRUBIN,TOTAL 0.6 MG/DL (0.1-1.0); BUN/CREATININE RATIO 11; CALCIUM 8.8 MG/DL (8.5-10.1); CARBON DIOXIDE 23 MMOL/L (21-32); CHLORIDE 100 MMOL/L (98-107); CREATININE SERUM 0.89 MG/DL (0.60-1.30); GFR ESTIMATED > 60; GLUCOSE 181 MG/DL (70-105); LIPASE 47 U/L (8-78); POTASSIUM 3.6 MMOL/L (3.6-5.0); SODIUM 131 MMOL/L (135-145); TOTAL PROTEIN 6.5 GM/DL (6.4-8.2)
[2018-02-08] MEDS ORDERED: inSUlin DETERMIR 1 UNIT/0.01 ML (LEVEMIR) CHARGE PER UNIT SQ SCH (07:00)
[2018-02-08] MEDS: PANTOPRAZOLE 20 MG TABLET (PROTONIX) PO SCH ×2 (07:48→16:15)
[2018-02-08] MEDS: CARVEDILOL 12.5 MG (COREG) TABLET PO SCH ×2 (07:49→16:13)
[2018-02-08] MEDS: inSUlin ASPART (NovoLOG) 1 UNIT/0.01 ML (CHARGE PER UNIT) SC SCH ×4 (07:49→20:40)
[2018-02-08] MEDS ORDERED: ENOXAPARIN 40 MG/0.4 ML (LOVENOX) SYR SC SCH (08:00)
[2018-02-08] MEDS: DULoxetine 30 MG (CYMBALTA) CAP PO SCH ×3 (08:20→20:30)
[2018-02-08] MEDS: PREGABALIN 100 MG (LYRICA) CAPSULE PO SCH ×2 (08:20→20:30)
[2018-02-08] MEDS ORDERED: NICOTINE 14 MG (NICODERM) PATCH TD SCH (09:00)
[2018-02-08] MEDS: CATHETER FLUSH 10 ML SYR IV PRN (11:17)
--- NOTE | 2018-02-08 12:44 | History & Physical-Hospitalist ---
History of Present Illness HPI/Chief Complaint CC: Acute pancreatitis HPI: This is a 52-year-old white female clinic patient of Dr. HAIDER with a past medical history of multiple medical issues including [id number] diabetes on insulin with brittle control and pancreatitis in the past who presents to the ER with abdominal pain and generalized fatigue. Workup ensued and CT scan showed evidence of pancreatitis and lipase was mildly elevated at 292 but due to the significant comorbidities the patient has she is found to be in need for inpatient IV fluids bowel rest and general surgery consultation. Dr. Montoya saw the patient in consultation and his expertise is appreciated. Currently patient is doing well overall abdominal pain persist but she is less nauseated. She is in need of incentive spirometer along with albuterol treatments due to smoking status and crackles on exam today. Labs to look improved today and hopefully this will be a short course of bowel rest and then discharge home. 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 Source: patient Exam Limitations: no limitations Date Seen 02/08/18 Time Seen by Provider: 10:45 Attending Physician Ashlee Huber DO PCP Bailee Haider DO Referring Physician Date of Admission Feb 07, 2018 at 13:12 Home Medications & Allergies Home Medications Reviewed patient Home Medication Reconciliation performed by pharmacy medication reconciliations medical laboratory technicians and/or nursing. Patients Allergies have been reviewed. Allergies Allergies Coded Allergies codeine (Verified Allergy, Mild, ITCHING, 02/07/18) Sulfa (Sulfonamide Antibiotics) (Verified Allergy, Unknown, HIVES, 02/07/18) Past Hurqaom-Rdpmko-Cjbfti Hx Past Med/Social Hx: Reviewed Nursing Past Med/Soc Hx, Reviewed and Corrections made Patient Social History Employed/Student: unemployed Alcohol Use: Denies Use Recreational Drug Use: Yes (thc) Drug of Choice: opioids Smoking Status: Current Everyday Smoker Type Used: Cigarettes 2nd Hand Smoke Exposure: Yes Physical Abuse Screen: No Sexual Abuse: No Recent Foreign Travel: No Contact w/other who traveled: No Recent Hopitalizations: No Recent Infectious Disease Expo: No Immunizations Up To Date Tetanus Booster (TDap): Less than 5yrs Date of Pneumonia Vaccine: Jun 09, 2008 Date of Influenza Vaccine: Mar 29, 2015 Seasonal Allergies Seasonal Allergies: Yes Past Medical History Surgeries: Section, Gallbladder, Orthopedic, Tubal Ligation Respiratory: COPD Cardiac: Chronic Edema/Swelling, High Cholesterol, Hypertension Neurological: Neuropathy 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: No Sexually Transmitted Disease: No HIV/AIDS: No 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 Disorders: Denies Tubal Ligation Genitourinary: Renal Failure, UTI-Chronic Gastrointestinal: Gastroesophageal Reflux, Pancreatitis Musculoskeletal: Degenerate Disk Disease, Chronic Back Pain Endocrine: Diabetes, Insulin dep Are Your Blood Sugars Over 250: Yes Psychosocial: Sleep Difficulties, Anxiety, Depression Skin/Integumentary: Recent Skin Changes History of Blood Disorders: No Adverse Reaction to Blood Alvarado: No Family History Reviewed Nursing Family Hx Completed stroke 19 FATHER Congenital heart disease 19 FATHER Diabetes mellitus 19 FATHER Myocardial infarction 19 FATHER Psychosocial problem 19 FATHER (depression) 19 MOTHER (depression) Respiratory disorder 19 MOTHER (copd) No Pertinent Family Hx, Diabetes Review of Systems Constitutional: see HPI, fever, weakness EENTM: no symptoms reported Respiratory: no symptoms reported Cardiovascular: no symptoms reported Gastrointestinal: abdominal pain (RUQ), loss of appetite, nausea, vomiting Genitourinary: no symptoms reported Musculoskeletal: no symptoms reported Skin: no symptoms reported Psychiatric/Neurological: No Symptoms Reported All Other Systems Reviewed Negative Unless Noted: Yes Physical Exam Physical Exam Vital Signs Vital Signs - First Documented 02/07/18 02/07/18 02/07/18 10:04 14:00 14:58 Temp 98.3 Pulse 72 Resp 16 B/P (MAP) 183/114 (137) Pulse Ox 98 O2 Delivery Room Air FiO2 21 Capillary Refill : Less Than 3 Seconds Height, Weight, BMI Height: 5'2.00" Weight: 214lbs. 0.9oz. [id number]; 39.2 BMI Method:Stated General Appearance: No Apparent Distress, WD/WN, Chronically ill, Obese Eyes: Bilateral Eye Normal Inspection, Bilateral Eye PERRL HEENT: PERRL/EOMI, TMs Normal, Normal ENT Inspection, Pharynx Normal Neck: Full Range of Motion, Normal Inspection, Non Tender, Supple, Carotid Bruit Respiratory: Chest Non Tender, Lungs Clear, Normal Breath Sounds, No Accessory Muscle Use, No Respiratory Distress Cardiovascular: Regular Rate, Rhythm, No Edema, No Gallop, No JVD, No Murmur, Normal Peripheral Pulses Gastrointestinal: Normal Bowel Sounds, No Organomegaly, No Pulsatile Mass, Distended, Tenderness Back: Normal Inspection, No CVA Tenderness, No Vertebral Tenderness Extremity: Normal Capillary Refill, Normal Inspection, Normal Range of Motion, Non Tender, No Calf Tenderness, No Pedal Edema Neurologic/Psychiatric: Alert, Oriented x3, No Motor/Sensory Deficits, Depressed Affect Skin: Normal Color, Warm/Dry Lymphatic: No Adenopathy Results Results/Procedures Labs Laboratory Tests 02/07/18 10:00 02/08/18 05:50 Patient resulted labs reviewed. Assessment/Plan Admission Diagnosis Assessment: Acute pancreatitis with history of pancreatitis in the past Diabetes mellitus out of control with brittle status Acute UTI Obesity Current smoker Crackles on exam Leukocytosis Plan: Incentive spirometer Nebulizer treatments Pain control IV fluids Bowel rest Rocephin empirically for UTI Admission Status: Inpatient Order (span 2 midnights) Reason for Inpatient Admission: Pancreatitis will require 3 midnights of NPO to improve Diagnosis/Problems Diagnosis/Problems (1) Acute on chronic pancreatitis Status: Acute (2) UTI (urinary tract infection) Status: Acute Qualifiers: Urinary tract infection type: acute cystitis Hematuria presence: without hematuria Qualified Codes: N30.00 - Acute cystitis without hematuria (3) Hyponatremia Status: Acute (4) Leukocytosis Status: Resolved Qualifiers: Leukocytosis type: leukemoid reaction Qualified Codes: D72.823 - Leukemoid reaction (5) Obesity Status: Chronic Qualifiers: Obesity type: due to excess calories Obesity classification: adult class 2 (BMI 35 - 39.9) Serious obesity comorbidity presence: with serious comorbidity (6) Smoker Status: Chronic (7) Bibasilar crackles Status: Acute (8) Nausea & vomiting Status: Acute Qualifiers: Vomiting type: unspecified Vomiting Intractability: unspecified Qualified Codes: R11.2 - Nausea with vomiting, unspecified (9) Hyperglycemia Status: Acute Clinical Quality Measures DVT/VTE Risk/Contraindication: Risk Factor Score Per Nursin RFS Level Per Nursing on Admit: 4+=Very High ASHLEE HUBER DO Feb 08, 2018 12:44
[2018-02-08] MEDS: cefTRIAXone 1 GM/NS 50 ML IVPB IV SCH ×2 (13:10)
[2018-02-08] MEDS: RT-ALBUTEROL/IPRATROPIUM 3 ML (DUONEB) VIAL INH SCH ×2 (13:31→19:28)
[2018-02-08] MEDS: ENOXAPARIN 40 MG/0.4 ML (LOVENOX) SYR SC SCH (14:27)
[2018-02-08] MEDS: AMITRIPTYLINE 25 MG (ELAVIL) TAB PO SCH (20:30)
[2018-02-09] MEDS: D5 NS 1000 ML IV SOLUTION 1,000 ML IV SCH ×2 (01:07→01:30)
[2018-02-09] MEDS: HYDROmorphone 2 MG/ML VIAL (DILAUDID) IV PRN ×5 (01:30→23:41)
[2018-02-09] MEDS: CIPROFLOXACIN IV 400MG/200ML 200 ML IV SCH ×2 (03:32→15:27)
[2018-02-09 04:56] VITALS: BP 129/61
[2018-02-09] MEDS: PANTOPRAZOLE 20 MG TABLET (PROTONIX) PO SCH ×2 (05:34→15:27)
[2018-02-09] MEDS: inSUlin ASPART (NovoLOG) 1 UNIT/0.01 ML (CHARGE PER UNIT) SC SCH ×4 (05:38→20:49)
[2018-02-09 06:17] LABS: BASOPHILS % (AUTO) 0 % (0-10); EOSINOPHILS # (AUTO) 0.1 10^3/uL (0.0-0.3); EOSINOPHILS % (AUTO) 1 % (0-10); HEMATOCRIT 32 % (35-52); LYMPHOCYTES # (AUTO) 1.5 X 10^3 (1.0-4.0); LYMPHOCYTES % (AUTO) 24 % (12-44); MEAN CORPUSCULAR HEMOGLOBIN 30 PG (25-34); MEAN CORPUSCULAR HGB CONC 34 G/DL (32-36); MEAN CORPUSCULAR VOLUME 86 FL (80-99); MEAN PLATELET VOLUME 10.5 FL (7.4-10.4); MONOCYTES # (AUTO) 0.5 X 10^3 (0.0-1.0); MONOCYTES % (AUTO) 8 % (0-12); NEUTROPHILS # (AUTO) 4.4 X 10^3 (1.8-7.8); NEUTROPHILS % (AUTO) 68 % (42-75); PLATELET COUNT 191 10^3/uL (130-400); RED BLOOD COUNT 3.73 10^6/uL (4.35-5.85); RED CELL DISTRIBUTION WIDTH 13.7 % (10.0-14.5); WHITE BLOOD COUNT 6.5 10^3/uL (4.3-11.0)
[2018-02-09] MEDS: CARVEDILOL 12.5 MG (COREG) TABLET PO SCH ×2 (06:21→16:24)
[2018-02-09 06:54] LABS: ALBUMIN 2.8 GM/DL (3.2-4.5); BILIRUBIN,TOTAL 0.7 MG/DL (0.1-1.0); CALCIUM 8.4 MG/DL (8.5-10.1); CREATININE SERUM 1.35 MG/DL (0.60-1.30); POTASSIUM 3.9 MMOL/L (3.6-5.0); TOTAL PROTEIN 6.3 GM/DL (6.4-8.2)
[2018-02-09] MEDS: RT-ALBUTEROL/IPRATROPIUM 3 ML (DUONEB) VIAL INH SCH ×3 (07:03→19:10)
[2018-02-09 08:00] VITALS: BP 106/56
[2018-02-09] MEDS: PREGABALIN 100 MG (LYRICA) CAPSULE PO SCH ×2 (08:28→20:49)
[2018-02-09] MEDS: DULoxetine 30 MG (CYMBALTA) CAP PO SCH ×3 (08:28→20:49)
--- NOTE | 2018-02-09 10:08 | Progress Note (SOAP) ---
Subjective Date Seen by Provider: Feb 09, 2018 Time Seen by Provider: 09:25 Subjective/Events-last exam Patient seen with Dr. Montoya. Patient reports doing well but still having some epigastric discomfort and lower abdominal discomfort. Tolerating liquids. No fever/chills. Objective Exam Vital Signs Date Time Temp Pulse Resp B/P (MAP) Pulse Ox O2 Delivery O2 Flow Rate FiO2 02/09/18 08:00 96.7 53 20 106/56 (73) 98 Room Air 02/09/18 07:03 91 Room Air 02/09/18 04:56 98.7 68 20 129/61 (83) 97 Room Air 02/08/18 23:51 97.9 66 20 96/51 (66) 94 Room Air 02/08/18 20:30 Room Air 02/08/18 20:19 98.1 62 16 103/59 (74) 96 Room Air 02/08/18 19:28 96 Room Air 02/08/18 16:04 108/60 (76) 02/08/18 15:29 99.1 57 16 98 Room Air 02/08/18 13:38 Room Air 02/08/18 13:31 93 Room Air 02/08/18 12:00 97.9 67 20 109/61 (77) 97 Room Air I & O 02/09/18 07:00 Intake Total 1545 ml Balance 1545 ml Capillary Refill : Less Than 3 Seconds General Appearance: No Apparent Distress, WD/WN Neck: Full Range of Motion, Normal Inspection, Non Tender, Supple Respiratory: Chest Non Tender, No Accessory Muscle Use, No Respiratory Distress Cardiovascular: Regular Rate, Rhythm, No Murmur Gastrointestinal: normal bowel sounds, soft, tenderness (Epigastic and lower abdomen to palpation.) Extremity: Normal Capillary Refill, Normal Range of Motion, Non Tender Neurologic/Psychiatric: Alert, Oriented x3 Skin: Normal Color, Warm/Dry Results Lab Laboratory Tests 02/08/18 11:07: Glucometer 193H 02/08/18 16:13: Glucometer 73 02/08/18 20:36: Glucometer 131H 02/09/18 05:31: Glucometer 307H 02/09/18 05:50: White Blood Count 6.5, Red Blood Count 3.73L, Hemoglobin 11.0L, Hematocrit 32L, Mean Corpuscular Volume 86, Mean Corpuscular Hemoglobin 30, Mean Corpuscular Hemoglobin Concent 34, Red Cell Distribution Width 13.7, Platelet Count 191, Mean Platelet Volume 10.5H, Neutrophils (%) (Auto) 68, Lymphocytes (%) (Auto) 24 , Monocytes (%) (Auto) 8, Eosinophils (%) (Auto) 1, Basophils (%) (Auto) 0, Neutrophils # (Auto) 4.4, Lymphocytes # (Auto) 1.5, Monocytes # (Auto) 0.5, Eosinophils # (Auto) 0.1, Basophils # (Auto) 0.0, Sodium Level 129L, Potassium Level 3.9, Chloride Level 100, Carbon Dioxide Level 18L, Anion Gap 11, Blood Urea Nitrogen 13, Creatinine 1.35H, Estimat Glomerular Filtration Rate 42, BUN/ Creatinine Ratio 10, Glucose Level 268H, Calcium Level 8.4L, Corrected Calcium 9.4, Total Bilirubin 0.7, Aspartate Amino Transf (AST/SGOT) 26, Alanine Aminotransferase (ALT/SGPT) 22, Alkaline Phosphatase 140H, Total Protein 6.3L, Albumin 2.8L, Lipase 12 Microbiology 02/07/18 Urine Culture - Preliminary, Resulted Enterococcus faecalis Assessment/Plan Assessment/Plan Assess & Plan/Chief Complaint A 52 year old female with episode of acute on chronic pancreatitis and UTI. VSS and Labs improved. Will continue with medical management with IV fluids, antibiotics, pain and nausea medications. Will advance to low-fat diet. Clinical Quality Measures DVT/VTE Risk/Contraindication: Risk Factor Score Per Nursin RFS Level Per Nursing on Admit: 4+=Very High SUSSY BETTS APRN Feb 09, 2018 10:08 am
[2018-02-09 12:00] VITALS: BP 125/68
--- NOTE | 2018-02-09 12:11 | Progress Note-Hospitalist ---
Progress Note Progress Notes/Assess & Plan Date Seen 02/09/18 Time Seen by Provider: 12:08 Assessment & Plan The patient is a 52-year-old morbidly obese female who has a past history of recurrent pancreatitis. She was admitted through the emergency room with complaints of nausea, abdominal pain which was central, and was noted to have a lipase of 292. She has been treated conservatively with IV fluids and nothing by mouth status. Her lipase has fallen from 292-12. She reports that she has only modest pain and nausea. She has attempted to eat but has not had much appetite. Physical exam: Lungs are clear to auscultation. CV is regular without murmur. Abdomen is obese. There is modest tenderness to palpation but no guarding or rebound. Bowel sounds are hypoactive. Impression: Recurrent pancreatitis. 2.morbid obesity. 3.diabetes mellitus. Plan: Oral feeding. Pain relief as needed. If able to eat satisfactorily she should be a candidate for discharge tomorrow. LISS SHAH MD Feb 09, 2018 12:11
[2018-02-09] MEDS: ENOXAPARIN 40 MG/0.4 ML (LOVENOX) SYR SC SCH (12:32)
[2018-02-09] MEDS: cefTRIAXone 1 GM/NS 50 ML IVPB IV SCH ×2 (14:13)
[2018-02-09 15:38] VITALS: BP 160/88
[2018-02-09 19:45] VITALS: BP 107/53
[2018-02-09] MEDS: AMITRIPTYLINE 25 MG (ELAVIL) TAB PO SCH (20:49)
[2018-02-10] VITALS: BP 95/51
[2018-02-10] MEDS: CIPROFLOXACIN IV 400MG/200ML 200 ML IV SCH ×2 (03:19→18:49)
[2018-02-10] MEDS: HYDROmorphone 2 MG/ML VIAL (DILAUDID) IV PRN ×2 (03:22→06:06)
[2018-02-10 04:00] VITALS: BP 120/58
[2018-02-10] MEDS: PANTOPRAZOLE 20 MG TABLET (PROTONIX) PO SCH ×2 (06:06→16:30)
[2018-02-10] MEDS: inSUlin ASPART (NovoLOG) 1 UNIT/0.01 ML (CHARGE PER UNIT) SC SCH ×3 (06:06→16:29)
[2018-02-10] MEDS: CARVEDILOL 12.5 MG (COREG) TABLET PO SCH ×2 (06:06→18:10)
[2018-02-10] MEDS: RT-ALBUTEROL/IPRATROPIUM 3 ML (DUONEB) VIAL INH SCH ×2 (07:15→13:49)
[2018-02-10 08:00] VITALS: BP 118/62
[2018-02-10] MEDS: DULoxetine 30 MG (CYMBALTA) CAP PO SCH ×2 (09:01→13:38)
[2018-02-10] MEDS: PREGABALIN 100 MG (LYRICA) CAPSULE PO SCH (09:01)
[2018-02-10] MEDS: HYDROcodone/APAP 5 MG/325 MG (LORTAB) TAB PO PRN ×2 (10:01→16:28)
[2018-02-10 12:00] VITALS: BP 115/58
[2018-02-10] MEDS: ENOXAPARIN 40 MG/0.4 ML (LOVENOX) SYR SC SCH (13:38)
--- NOTE | 2018-02-10 15:53 | Progress Note (SOAP) ---
Subjective Date Seen by Provider: Feb 10, 2018 Time Seen by Provider: 15:45 Subjective/Events-last exam doing ok. no complaints. abd pain much better controlled. tolerating low fat diet. glucose levels still a bit high. Objective Exam Vital Signs Date Time Temp Pulse Resp B/P (MAP) Pulse Ox O2 Delivery O2 Flow Rate FiO2 02/10/18 13:49 96 Room Air 02/10/18 12:00 97.9 56 20 115/58 (77) 99 Room Air 02/10/18 08:00 97.2 62 20 118/62 (80) 98 Room Air 02/10/18 07:15 96 Room Air 02/10/18 04:00 97.5 63 20 120/58 (78) 96 Room Air 02/10/18 00:00 98.2 62 20 95/51 (66) 97 Room Air 02/09/18 19:45 98.0 62 18 107/53 (71) 95 Room Air 02/09/18 19:12 97 Room Air I & O 02/10/18 07:00 Intake Total 2990 ml Balance 2990 ml Capillary Refill : Less Than 3 Seconds General Appearance: No Apparent Distress HEENT: PERRL/EOMI Neck: Full Range of Motion Respiratory: Chest Non Tender, Lungs Clear, Normal Breath Sounds Cardiovascular: Regular Rate, Rhythm Gastrointestinal: normal bowel sounds, non tender, soft Extremity: Normal Capillary Refill Neurologic/Psychiatric: Alert, Oriented x3 Skin: Normal Color Lymphatic: No Adenopathy Results Lab Laboratory Tests 02/09/18 20:36: Glucometer 299H 02/09/18 23:36: Glucometer 191H 02/10/18 05:31: Glucometer 290H 02/10/18 11:38: Glucometer 207H Microbiology 02/07/18 Urine Culture - Final, Complete Enterococcus faecalis Assessment/Plan Assessment/Plan Assess & Plan/Chief Complaint acute on chronic pancreatitis most likely secondary hyperglycemia. improving. tolerating low fat diet and pain controlled. Clinical Quality Measures DVT/VTE Risk/Contraindication: Risk Factor Score Per Nursin RFS Level Per Nursing on Admit: 4+=Very High DANIAL MENDOZA MD Feb 10, 2018 15:53
[2018-02-10 16:38] VITALS: BP 141/78
[2018-02-10] MEDS ORDERED: ONDN4T PO (18:12)
[2018-02-10] MEDS ORDERED: ACHD5005 PO (18:12)
[2018-02-10] MEDS ORDERED: AMOX500C2 PO (18:14)
--- NOTE | 2018-02-10 18:15 | Discharge Inst-Simple/Standard ---
Discharge Inst-Standard Discharge Medications New, Converted or Re-Newed RX: Transmitted to Pharmacy Patient Instructions/Follow Up Plan of Care/Instructions/FU: Fwup 1 week Activity as Tolerated: Yes Discharge Diet: ADA Diet, Avoid Fatty Foods, Low Fat/Low Cholesterol Planned Outpatient Orders/Ref. Pneu Vac Indicated: Yes MIRELA LYLE DO Feb 10, 2018 18:15
--- NOTE | 2018-02-10 18:36 | Discharge Summary ---
Diagnosis/Chief Complaint Date of Admission Feb 07, 2018 at 1:12 pm Date of Discharge Discharge Date: Feb 10, 2018 Discharge Diagnosis 1. Acute Pancreatitis 2. Diabetes mellitus--insulin requiring, uncontrolled with hyperglycemia and noncompliance 3. Hypertension 4. Chronic Back Pain/Lumbar Degenerative Disc Disease with history of narcotic abuse 5. Diabetic neuropathy 6. GERD 7. Anxiety Discharge Summary Hospital Course Hospital Course This is a 52 year old female with a history of insulin requiring diabetes mellitus with hyperglycemia and noncompliance. She has a previous history of pancreatitis with pancreatic stent placement. She presented to the emergency room with abdominal pain and nausea and vomiting and was found to have acute pancreatitis. She was also hyperglycemic with a UTI. She was admitted and given IVFs, IV antiemetics, IV pain control and IV antibiotics for her UTI. Surgery was consulted. Her pancreatic and liver enzymes decreased back to normal by discharge and her diet was advanced to a low fat/diabetic diet by discharge. She required no antinausea medications on the day of discharge and her pain was controlled with oral hydrocodone on discharge. She ate 100% of her breakfast and lunch with no nausea and no increase in pain. It was decided she could be discharged home on oral antibiotics, oral zofran prn and oral hydrocodone prn and resume her home insulin dose regimen. She is instructed to stay on a lowfat/diabetic diet. Labs Laboratory Tests 02/07/18 21:03: Glucometer 44*L 02/07/18 21:29: Glucometer 138H 02/08/18 05:50: Red Blood Count 4.26L, Sodium Level 131L, Glucose Level 181H, Aspartate Amino Transf (AST/SGOT) 69H, Alkaline Phosphatase 148H, Albumin 2.9L 02/08/18 05:56: Glucometer 182H 02/08/18 11:07: Glucometer 193H 02/08/18 16:13: 02/08/18 20:36: Glucometer 131H 02/09/18 05:31: Glucometer 307H 02/09/18 05:50: Red Blood Count 3.73L, Hemoglobin 11.0L, Hematocrit 32L, Mean Platelet Volume 10.5H, Sodium Level 129L, Carbon Dioxide Level 18L, Creatinine 1.35H, Glucose Level 268H, Calcium Level 8.4L, Alkaline Phosphatase 140H, Total Protein 6.3L, Albumin 2.8L 02/09/18 11:13: 02/09/18 15:46: Glucometer 231H 02/09/18 20:36: Glucometer 299H 02/09/18 23:36: Glucometer 191H 02/10/18 05:31: Glucometer 290H 02/10/18 11:38: Glucometer 207H 02/10/18 16:09: Glucometer 156H Procedures None. Discharge Physical Examination Allergies: Coded Allergies: codeine (Verified Allergy, Mild, ITCHING, 02/07/18) Sulfa (Sulfonamide Antibiotics) (Verified Allergy, Unknown, HIVES, 02/07/18) Vitals & I&Os Vital Signs Date Time Temp Pulse Resp B/P (MAP) Pulse Ox O2 Delivery O2 Flow Rate FiO2 02/10/18 16:38 96.5 59 16 141/78 (99) 99 Room Air 02/07/18 14:58 21 General Appearance: Alert, Oriented X3, Cooperative, No Acute Distress Respiratory: Clear to Auscultation Cardiovascular: Regular Rate Abdominal: Normal Bowel Sounds, Soft, Other (mild epigastric tenderness) Extremities: No Clubbing, No Cyanosis, No Edema Neuro: Normal Gait, Normal Speech Psych/Mental Status: Mental Status NL, Mood NL Discharge Home Medications Reviewed and agree with Discharge Medication list on patient's Discharge Instruction sheet Instructions to Patient/Family Please see electronic discharge instructions given to patient. Clinical Quality Measures DVT/VTE Risk/Contraindication: Risk Factor Score Per Nursin RFS Level Per Nursing on Admit: 4+=Very High MIRELA LYLE DO Feb 10, 2018 6:36 pm
[2018-02-10] MEDS: cefTRIAXone 1 GM/NS 50 ML IVPB IV SCH ×2 (18:49)
== END 2018-02-10 19:00 | disposition home or self-care (01) | DRG 439 ==
LOC: EDUNIT# 10:04 → ER 10:05 → 4TH 13:12
PROVIDERS: ADMIT Internal Medicine; ATTEND Internal Medicine
DX: K85.90 Acute pancreatitis without necrosis or infection, unspecified (principal); K86.1 Other chronic pancreatitis; N30.00 Acute cystitis without hematuria; E87.1 Hypo-osmolality and hyponatremia; E11.65 Type 2 diabetes mellitus with hyperglycemia; E11.40 Type 2 diabetes mellitus with diabetic neuropathy, unspecified; L02.11 Cutaneous abscess of neck; I10 Essential (primary) hypertension; M51.36 Other intervertebral disc degeneration, lumbar region; K21.9 Gastro-esophageal reflux disease without esophagitis; F41.9 Anxiety disorder, unspecified; E66.01 Morbid (severe) obesity due to excess calories; F32.9 Major depressive disorder, single episode, unspecified; E78.00 Pure hypercholesterolemia, unspecified; J44.9 Chronic obstructive pulmonary disease, unspecified; G47.30 Sleep apnea, unspecified; F17.210 Nicotine dependence, cigarettes, uncomplicated; F12.90 Cannabis use, unspecified, uncomplicated; D72.823 Leukemoid reaction; Z91.19 Patient's noncompliance with other medical treatment and regimen; Z79.4 Long term (current) use of insulin; Z96.89 Presence of other specified functional implants; Z68.39 Body mass index [BMI] 39.0-39.9, adult
CPT/HCPCS: 36415; 74177; 80053; 81000; 82962; 83690; 85025; 87077; 87088; 87186; 94640; 94664; 94760; 96361; 96365; 96372; 96375; 96376

== ENCOUNTER 2018-06-03 11:59 | Inpatient (IN) | payer MEDICARE, MEDICAID ==
[2018-06-03] VITALS (17 sets, daily range): BP systolic 94–130; BP diastolic 57–99
[~2018-06-03] VITALS: Ht 157.5 cm; Wt 101.6 kg
[~2018-06-03 11:59] MED LIST changes: +ACHD5005 PO; +AMOX500C2 PO; +INSU100I14 SC; +INSU100I29 SQ; +ONDN4T PO; +PREG100C PO; +TIZA4TAB3 PO
--- NOTE | 2018-06-03 12:00 | NUR ---
UNABLE TO PREFORM STROKE SCALE D/T UNRESPONSIVENESS
[2018-06-03] MEDS ORDERED: DEXTROSE 50% 50 ML (IMS) SYR ONE (12:07)
[2018-06-03] MEDS ORDERED: LORazepam INJ 2 MG/ML (ATIVAN) VIAL ONE ×2 (12:07→14:19)
[2018-06-03 12:12] LABS: BASOPHILS % (AUTO) 0 % (0-10); EOSINOPHILS # (AUTO) 0.1 10^3/uL (0.0-0.3); EOSINOPHILS % (AUTO) 1 % (0-10); HEMATOCRIT 39 % (35-52); HEMOGLOBIN 13.2 G/DL (11.5-16.0); LYMPHOCYTES # (AUTO) 1.8 X 10^3 (1.0-4.0); LYMPHOCYTES % (AUTO) 16 % (12-44); MEAN CORPUSCULAR HEMOGLOBIN 29 PG (25-34); MEAN CORPUSCULAR HGB CONC 34 G/DL (32-36); MEAN CORPUSCULAR VOLUME 84 FL (80-99); MEAN PLATELET VOLUME 9.7 FL (7.4-10.4); MONOCYTES # (AUTO) 0.3 X 10^3 (0.0-1.0); MONOCYTES % (AUTO) 3 % (0-12); NEUTROPHILS # (AUTO) 8.8 X 10^3 (1.8-7.8); NEUTROPHILS % (AUTO) 80 % (42-75); PLATELET COUNT 401 10^3/uL (130-400); RED CELL DISTRIBUTION WIDTH 14.8 % (10.0-14.5)
[2018-06-03 12:34] LABS: ALANINE AMINOTRANSFERASE 21 U/L (0-55); ALBUMIN 3.4 GM/DL (3.2-4.5); ALKALINE PHOSPHATASE 161 U/L (40-136); BILIRUBIN,TOTAL 0.4 MG/DL (0.1-1.0); BUN/CREATININE RATIO 14; CALCIUM 9.3 MG/DL (8.5-10.1); CARBON DIOXIDE 20 MMOL/L (21-32); CHLORIDE 107 MMOL/L (98-107); CREATININE SERUM 1.12 MG/DL (0.60-1.30); GFR ESTIMATED 51; POTASSIUM 4.9 MMOL/L (3.6-5.0); SODIUM 136 MMOL/L (135-145); TOTAL PROTEIN 8.4 GM/DL (6.4-8.2)
[2018-06-03 12:37] LABS: GLUCOSE 31 MG/DL (70-105)
--- NOTE | 2018-06-03 12:42 | Diagnostic Imaging Report ---
PROCEDURE: CT head wo r/o stroke. TECHNIQUE: Multiple contiguous axial images were obtained through the brain without the use of intravenous contrast. INDICATION: Stroke. Comparison is made with prior exam from 05/04/2015. Study is significantly compromised by patient motion. Multiple attempts were made. Ventricles appear to be normal in size. No definite midline shift is seen. No large area of parenchymal hemorrhage is seen. Cisterns appear to be patent. The visualized paranasal sinuses show apparent partial opacification of the left maxillary sinus. IMPRESSION: Significantly compromised by motion artifact. No gross intracranial abnormality is detected. Dictated by: Dictated on workstation # [id number]
--- NOTE | 2018-06-03 12:52 | ED Neurological Problem ---
General Chief Complaint: Neuro-Stroke Like Symptoms Stated Complaint: STROKE SYMPTOMS Source: EMS Exam Limitations: no limitations History of Present Illness Date Seen by Provider: Jun 03, 2018 Time Seen by Provider: 12:05 Initial Comments The patient is a 52-year-old white female with a long history of ill health. She has a poorly controlled diabetic. She smokes and continues to do so. This morning she was found down in bed by her sister. The ambulance was called. They arrived she was unresponsive and shortly thereafter had a grand mal type seizure. On arrival here she was deeply unresponsive to voice. Her pupils were large and unresponsive. She exhibited rather rhythmic movements of arms and legs but any purposeless fashion. She was taken directly to the CT scanner. The noncontrast films were less than ideal because of movement however no bleed was seen. The EMS people noted a glucose of 30 at their initial assessment. She was given 1 amp of D50 W which brought her next reading to 100+. 1250 after initial stabilization [facility] 1 call was reached and I spoke to the transfer/triage nurse. During that conversation the patient's SaO2 fell into the 60s and we discontinued the discussion from the purposes of intubation. Dr. Powers from anesthesia came and successfully intubated her. This was followed by considerable suctioning and removal of white foamy secretions. The SaO2 with bagging and 100 percent O2 hugo into the 90s. [facility] then recalled at 1320 and the patient was ordered for a CT perfusion scan and CT angiography. It should be noted that although this was attempted at the time of the initial stat CT the patient movement made it impossible to be completed.[id number]: Again spoke to [facility] and informed them of the status. It had been determined at this point we were ready to have the CT perfusion scan and the CT head neck angiogram. These were reported to me at [address] Mendoza from the radiology department. Both appeared to be normal. I then called [facility] again and spoke to the triage nurse to whom I had been speaking all along. This occurred at 1553. It was decided at that time that this could be more of a hypoglycemic encephalopathy and she will be kept here for the time being. Timing/Duration: unknown Severity: severe Allergies and Home Medications Allergies Coded Allergies: codeine (Verified Allergy, Mild, ITCHING, 02/07/18) Sulfa (Sulfonamide Antibiotics) (Verified Allergy, Unknown, HIVES, 02/07/18) Home Medications Acetaminophen 650 Mg Tablet.er, 650 MG PO Q6H PRN for PAIN-MILD, (Reported) Albuterol Sulfate 18 Gm Hfa.aer.ad, 2 PUFF INH Q6H PRN for SHORTNESS OF BREATH, (Reported) Amitriptyline HCl 25 Mg Tablet, 25 MG PO HS, (Reported) Amoxicillin 500 Mg Capsule, 500 MG PO TID Prescribed by: MIRELA HAIDER on 02/10/181813 Carvedilol 25 Mg Tablet, 25 MG PO BID, (Reported) Duloxetine HCl 30 Mg Capsule.dr, 30 MG PO TID, (Reported) TAKES 1 CAPSULE IN MORNING, 2 CAPSULES AT HS Hydrocodone Bit/Acetaminophen 1 Tab Tab, 1 TAB PO Q6H PRN for PAIN-MODERATE TO SEVERE Prescribed by: MIRELA HAIDER on 02/10/181811 Insulin Aspart 300 Units/3 Ml Solution, 15 UNITS SC BID WITH MEALS, (Reported) Insulin Detemir 100 Unit/1 Ml Insuln.pen, 50 UNIT SQ BID, (Reported) Omeprazole 20 Mg Capsule.dr, 20 MG PO BID, (Reported) Ondansetron HCl 4 Mg Tab, 4 MG PO Q4H Prescribed by: MIRELA HAIDER on 02/10/181811 Pregabalin 100 Mg Capsule, 100 MG PO BID, (Reported) Tizanidine HCl 4 Mg Tablet, 4 MG PO TID PRN for MUSCLE SPASMS, (Reported) Patient Home Medication List Home Medication List Reviewed: Yes Review of Systems Review of Systems Constitutional: other (patient is deeply unresponsive and only history was available from EMS who brought her from the scene) Past Zshetfk-Hirrpq-Xwyneh Hx Patient Social History Drug of Choice: opioids Type Used: Cigarettes 2nd Hand Smoke Exposure: Yes Recent Hopitalizations: No Immunizations Up To Date Tetanus Booster (TDap): Less than 5yrs Date of Pneumonia Vaccine: Jun 09, 2008 Date of Influenza Vaccine: Mar 29, 2015 Seasonal Allergies Seasonal Allergies: Yes Past Medical History Surgeries: Yes (Left breast cyst, x2, ORIF Right ankle) Section, Gallbladder, Orthopedic, Tubal Ligation Respiratory: Yes (CPAP not used after last sleep study) Sleep Apnea, COPD Cardiac: Yes Chronic Edema/Swelling, High Cholesterol, Hypertension Neurological: Yes Neuropathy 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 Disorders: No 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 Disorders: Denies ROVING HAND History: Tubal Ligation Sexually Transmitted Disease: No HIV/AIDS: No Genitourinary: Yes Renal Failure, UTI-Chronic Gastrointestinal: Yes Gastroesophageal Reflux, Pancreatitis Musculoskeletal: Yes (right ankle fx with steel plate) Degenerate Disk Disease, Chronic Back Pain Endocrine: Yes Diabetes, Insulin dep HEENT: No Cancer: No Psychosocial: Yes Sleep Difficulties, Anxiety, Depression Integumentary: Yes (FREQUENT CELLULITIS--LEGS) Recent Skin Changes Blood Disorders: No Adverse Reaction/Blood Tranf: No Family Medical History Completed stroke 19 FATHER Congenital heart disease 19 FATHER Diabetes mellitus 19 FATHER Myocardial infarction 19 FATHER Psychosocial problem 19 FATHER (depression) 19 MOTHER (depression) Respiratory disorder 19 MOTHER (copd) No Pertinent Family Hx, Diabetes Physical Exam Vital Signs Vital Signs - First Documented 06/03/18 12:00 Temp 97.5 Pulse 138 Resp 24 B/P (MAP) 165/128 (140) Pulse Ox 85 O2 Delivery OxyMask O2 Flow Rate 15.00 Capillary Refill : Height, Weight, BMI Height: 5'2.00" Weight: 214lbs. 0.9oz. 97.612267xa; 39.2 BMI Method:Stated General Appearance: other (deeply unresponsive. There were purposeful is almost rhythmic movements of the head belly arms and legs.) Respiratory: other (tachypneic with excessive abdominal movement. At intervals foamy white liquid billowed from the patient's mouth) Cardiovascular: tachycardia, other (poorly heard because of respiratory noises) Gastrointestinal: other (obese) The patient does not respond to touch, voice, noxious stimuli. The pupils are quite large and do not respond to light. The right pupil is larger than the left and rather ovoid in the vertical plane. It is not otherwise possible to evaluate the cranial nerves. Focused Exam Lactate Level 06/03/18 14:15: Lactic Acid Level 1.07 Lactic Acid Level Laboratory Tests Test 06/03/18 14:15 Lactic Acid Level 1.07 MMOL/L (0.50-2.00) Progress/Results/Core Measures Results/Orders Lab Results Laboratory Tests Test 06/03/18 12:00 06/03/18 12:27 06/03/18 12:40 06/03/18 12:54 Range/Units White Blood Count 11.0 4.3-11.0 10^3/uL Red Blood Count 4.60 4.35-5.85 10^6/uL Hemoglobin 13.2 11.5-16.0 G/DL Hematocrit 39 35-52 % Mean Corpuscular Volume 84 80-99 FL Mean Corpuscular Hemoglobin 29 25-34 PG Mean Corpuscular Hemoglobin Concent 34 32-36 G/DL Red Cell Distribution Width 14.8 H 10.0-14.5 % Platelet Count 401 H 130-400 10^3/uL Mean Platelet Volume 9.7 7.4-10.4 FL Neutrophils (%) (Auto) 80 H 42-75 % Lymphocytes (%) (Auto) 16 12-44 % Monocytes (%) (Auto) 3 0-12 % Eosinophils (%) (Auto) 1 0-10 % Basophils (%) (Auto) 0 0-10 % Neutrophils # (Auto) 8.8 H 1.8-7.8 X 10^3 Lymphocytes # (Auto) 1.8 1.0-4.0 X 10^3 Monocytes # (Auto) 0.3 0.0-1.0 X 10^3 Eosinophils # (Auto) 0.1 0.0-0.3 10^3/uL Basophils # (Auto) 0.0 0.0-0.1 10^3/uL Sodium Level 136 135-145 MMOL/L Potassium Level 4.9 3.6-5.0 MMOL/L Chloride Level 107 98-107 MMOL/L Carbon Dioxide Level 20 L 21-32 MMOL/L Anion Gap 9 5-14 MMOL/L Blood Urea Nitrogen 16 7-18 MG/DL Creatinine 1.12 0.60-1.30 MG/DL Estimat Glomerular Filtration Rate 51 BUN/Creatinine Ratio 14 Glucose Level 31 *L 70-105 MG/DL Calcium Level 9.3 8.5-10.1 MG/DL Corrected Calcium 9.8 8.5-10.1 MG/DL Total Bilirubin 0.4 0.1-1.0 MG/DL Aspartate Amino Transf (AST/SGOT) 34 5-34 U/L Alanine Aminotransferase (ALT/SGPT) 21 0-55 U/L Alkaline Phosphatase 161 H 40-136 U/L Troponin I < 0.30 <0.30 NG/ML Total Protein 8.4 H 6.4-8.2 GM/DL Albumin 3.4 3.2-4.5 GM/DL Glucometer 93 70-110 MG/DL Urine Color YELLOW Urine Clarity VERY CLOUDY H Urine pH 5 5-9 Urine Specific [place] 1.025 H 1.016-1.022 Urine Protein 3+ H NEGATIVE Urine Glucose (UA) NEGATIVE NEGATIVE Urine Ketones NEGATIVE NEGATIVE Urine Nitrite NEGATIVE NEGATIVE Urine Bilirubin NEGATIVE NEGATIVE Urine Urobilinogen NORMAL NORMAL MG/DL Urine Leukocyte Esterase 3+ H NEGATIVE Urine RBC (Auto) 4+ H NEGATIVE Urine RBC 2-5 H /HPF Urine WBC TNTC H /HPF Urine Squamous Epithelial Cells 2-5 /HPF Urine Crystals NONE /LPF Urine Bacteria LARGE H /HPF Urine Casts NONE /LPF Urine Mucus NEGATIVE /LPF Urine Yeast MODERATE H /HPF Urine Culture Indicated YES Blood Gas Puncture Site RRAD Blood Gas Patient Temperature 97.5 Arterial Blood pH 7.22 *L 7.37-7.43 Arterial Blood Partial Pressure CO2 45 35-45 MMHG Arterial Blood Partial Pressure O2 48 L 79-93 MMHG Arterial Blood HCO3 18 L 23-27 MMOL/L Arterial Blood Total CO2 19.5 L 21.0-31.0 MMOL/L Arterial Blood Oxygen Saturation 74 L 94-100 % Arterial Blood Base Excess -8.3 L -2.5-2.5 MMOL/L Dave Test YES-POS Blood Gas Ventilator Setting NO Blood Gas Inspired Oxygen RA Test 06/03/18 13:42 06/03/18 14:15 06/03/18 15:50 06/03/18 16:17 Range/Units Glucometer 206 H 265 H 70-110 MG/DL Lactic Acid Level 1.07 0.50-2.00 MMOL/L Prothrombin Time 13.9 12.2-14.7 SEC INR Comment 1.1 0.8-1.4 Activated Partial Thromboplast Time 30 24-35 SEC D-Dimer 3.09 H 0.00-0.49 UG/ML My Orders Orders - LISS SHAH MD Anesthesia Consult (06/03/18 13:05) Propofol Drip (Icu) (Diprivan Drip (Icu) (06/03/18 13:04) Arterial Blood Gas (06/03/18 13:08) Chest 1 View, Ap/Pa Only (06/03/18 13:21) Blood Culture (06/03/18 13:21) Lactic Acid Analyzer (06/03/18 13:21) D5 Lr Iv Solution (Dextrose 5%/Lactated (06/03/18 13:30) Ct Head Perfusion W/ Contrast (06/03/18 13:25) Ct Angio Head/Neck (06/03/18 13:25) Iohexol Injection (Omnipaque 350 Mg/Ml 1 (06/03/18 13:45) Contrast Received (Contrast Received) (06/03/18 13:45) Ns (Ivpb) (Sodium Chloride 0.9%) (06/03/18 13:45) Ct Head Perfusion W/ Contrast (06/03/18 ) Lorazepam Injection (Ativan Injection) (06/03/18 14:19) Propofol Drip (Icu) (Diprivan Drip (Icu) (06/03/18 16:04) Medications Given in ED Current Medications Medications Dose Ordered Sig/Amy Route Start Time Stop Time Status Last Admin Dose Admin Iohexol 150 ml ONCE ONCE IV 06/03/18 13:45 06/03/18 13:46 DC 06/03/18 15:11 150 ML Sodium Chloride 250 ml ONCE ONCE IV 06/03/18 13:45 06/03/18 13:46 DC 06/03/18 15:12 150 ML Vital Signs/I&O 06/03/18 06/03/18 12:00 12:00 Temp 97.5 Pulse 138 Resp 24 B/P (MAP) 165/128 (140) Pulse Ox 85 O2 Delivery OxyMask OxyMask O2 Flow Rate 15.00 Departure Communication (Admissions) Discussed with Dr. Haider at 1610. Patient will be admitted to ICU on the ventilator. Impression Primary Impression: neurologic event consistent with hypoglycemic encephalopathy Additional Impression: urinary tract infection Disposition: ADMITTED INPATIENT Condition: Improved Admissions Decision to Admit Reason: Admit from ER (General) Decision to Admit/Date: Jun 03, 2018 Time/Decision to Admit Time: 16:33 Departure-Patient Inst. Referrals: MIRELA HAIDER DO (PCP/Family) Primary Care Physician LISS SHAH MD Jun 03, 2018 12:51
[2018-06-03] MEDS ORDERED: PROPOFOL DRIP (ICU) 100 ML IV ONE ×2 (13:04→16:04)
[2018-06-03] MEDS ORDERED: MIDAZOLAM 5 MG/5 ML (VERSED) VIAL INJ ONE (13:08)
[2018-06-03] MEDS ORDERED: SUCCINYLCHOLINE INJ 100 MG/5 ML SYR INJ ONE (13:08)
[2018-06-03 13:12] LABS: ABG BASE EXCESS -8.3 MMOL/L (-2.5-2.5); ABG OXYGEN SATURATION 74 % (94-100); ABG PCO2 45 MMHG (35-45); ABG PO2 48 MMHG (79-93); ABG TCO2 19.5 MMOL/L (21.0-31.0)
[2018-06-03 13:14] LABS: ABG PH 7.22 (7.37-7.43); ALLENS TEST YES-POS
[2018-06-03 13:15] LABS: INSPIRED O2 RA; PATIENT TEMP 97.5; VENTILATOR NO
[2018-06-03] MEDS ORDERED: D5 LR IV SOLUTION 1,000 ML IV SCH (13:30)
[2018-06-03] MEDS ORDERED: NS 250 ML (IVPB) BAG IV ONE (13:45)
[2018-06-03] MEDS ORDERED: RECEIVED CONTRAST (Hold Metformin) IV SCH (13:45)
[2018-06-03] MEDS ORDERED: IOHEXOL 350 MG/ML 150 ML (OMNIPAQUE 350) VIAL IV ONE (13:45)
[2018-06-03 14:57] LABS: BILIRUBIN,URINE NEGATIVE (NEGATIVE); CLARITY,URINE VERY CLOUDY; COLOR,URINE YELLOW; GLUCOSE, URINE (UA) NEGATIVE (NEGATIVE); KETONES,URINE NEGATIVE (NEGATIVE); LEUKOCYTE ESTERASE ,URINE 3+ (NEGATIVE); NITRITE,URINE NEGATIVE (NEGATIVE); PH,URINE 5 (5-9); PROTEIN,URINE 3+ (NEGATIVE); UROBILINOGEN,URINE NORMAL (NORMAL)
--- NOTE | 2018-06-03 15:02 | NUR ---
[employer] contacted for family support. Approximately 30 visitors present including 2 daughters, other family, temple members and friends. [employer] facilitated communication and offered emotional and spiritual support. Supported daughter, Alla, through intense grief and demonstrated anxiety. Daughters state pt has a history of abusing pain pills.
[2018-06-03 15:05] LABS: BACTERIA,URINE LARGE /HPF; WBC,URINE TNTC /HPF; YEAST,URINE MODERATE /HPF
--- NOTE | 2018-06-03 15:23 | Anesthesia-Procedure Note ---
Procedures/Interventions Procedure Start/Stop/Diagnosis Date of Procedure: Jun 03, 2018 Start Time: 13:08 Referring Physician: Dr Morfin Preprocedural Diagnosis: Respiratory Failure Brief History Anesthesia Note ([id number]) Called to the ED for an emergent intubation. I went directly to the ED. Brief report obtained from Dr Morfin. Pt unresponsive on arrival and appeared to have seizure-like activity per Dr Morfin. After returning from CT, her SaO2 dropped into the 60's and I was called at that time. Versed 2 mg IV, Propofol 150 mg IV and Succinylcholine 100 mg IV. Gallagher video laryngoscope was used for a grade 1 view and a 7.5 cuffed ETT passed easily through the vocal cords. BS = B/L and + EtCO2 color change. SaO2 returned to the upper 90's shortly after intubation. Will be available if needed. Stop Time: 13:15 Postprocedural Diagnosis: Same Intubation Reason Intubation/Diagnosis: Respiratory Failure, ASA 5E RSI: Yes 100% pre-Ox, cehop2zqon: No (O2 via mask prior to, but intubation done emergently.) Intubation Method: orotracheal Videoscope used: Yes (Gallagher X-Blade) Grade View: 1 Positive End Tide CO2: Yes (EtCO2 color change positive initially) Breath Sounds after Intubation: bilateral-equal ETT Securred @ (cm): 23 Intubated with ease: Yes Intubation Complications: no complications, apparent aspiration (Possible aspiration, white frothy material noted at the vocal cords with intubation and suctioned out of ETT after intubation. ) CLOVIS HENDERSON DO Jun 03, 2018 15:23
--- NOTE | 2018-06-03 15:33 | Diagnostic Imaging Report ---
INDICATION: CVA, respiratory failure. Portable chest at 03:16 p.m. FINDINGS: There is an ET tube projecting over the trachea. NG tube appears to enter the stomach. Right jugular central line tip projects over the SVC. There is central vascular congestion. IMPRESSION: Perihilar vascular congestion. Dictated by: Dictated on workstation # [id number]
--- NOTE | 2018-06-03 15:44 | Diagnostic Imaging Report ---
INDICATION: Unresponsive, stroke symptoms. TECHNIQUE: Axial imaging through the brain was performed after the administration of intravenous contrast utilizing CT perfusion protocol. FINDINGS: The CT perfusion maps appear to be symmetric. The MAXIMUM TEMPERATURE maps are without evidence of prolongation of blood flow, with no ischemic penumbra visualized. The cerebral blood volume and cerebral blood flow maps are without evidence of ischemic core. The raw data CT images do not show flow in the right middle cerebral artery, however, this is felt to likely be owing to technical location of the slice position just above and below the right MCA. Further assessment will be performed with CT angiography. IMPRESSION: Unremarkable CT perfusion study, without evidence of ischemic penumbra or ischemic core. Dictated by: Dictated on workstation # [id number]
--- NOTE | 2018-06-03 15:45 | Diagnostic Imaging Report ---
PROCEDURE: CT angiography of the head and CT angiography of the neck with and without contrast. TECHNIQUE: Contiguous non-contrast images were obtained from the skull base through the vertex. After intravenous contrast administration, helical CT angiography of the neck was performed. Source data was reformatted into multiple MIP projections. Delayed post-contrast acquisition was also obtained. INDICATION: Unresponsive and stroke-like symptoms. FINDINGS: Precontrast portion through the brain demonstrates ventricles and sulci to be within normal limits. No sulcal effacement, midline shift, or hemorrhage is detected. Cisterns are patent. Paranasal sinuses demonstrate opacification of the left maxillary sinus. CT angiographic portion of the study demonstrates both common carotid arteries to be widely patent. The carotid bifurcations are unremarkable. Both internal carotid arteries appear to be patent. No definite thromboemboli within the middle cerebral or anterior cerebral arteries is seen. Posterior cerebral arteries appear to be patent. The basilar is patent. Left vertebral artery is dominant. Right vertebral artery is very small. Infiltrates are identified in the bilateral upper lobes. Patient is intubated. IMPRESSION: No evidence of thromboembolism. Dictated by: Dictated on workstation # [id number]
[2018-06-03 16:14] LABS: FIBRIN DEGRADATION PRODUCTS 3.09 UG/ML (0.00-0.49); INR 1.1 (0.8-1.4); PROTHROMBIN TIME PATIENT 13.9 SEC (12.2-14.7)
[2018-06-03] MEDS ORDERED: cefTRIAXone FOR IV USE 1,000 MG in NS (IVPB) 50 ML IV ONE (16:45)
--- NOTE | 2018-06-03 17:00 | NUR ---
CHEPE CASTANEDA admitted to room CU11-1, with an admitting diagnosis of hypoglycemia with neurologic deficit, on 06/03/18 from AM via cart, accompanied by staff.CHEPE CASTANEDA introduced to surroundings, call light, bed controls, phone, TV, temperature control, lights, meal times, smoking policy, visitor policy, side rail policy, bathrooms and showers. Patient Rights given to patient in the handbook. CHEPE CASTANEDA verbalizes understanding that [facility] is not responsible for the loss or damage to any personal effects or valuables that are kept in the patients posession during their hospitalization. The following Patient Care Plans were discussed with the family: Discharge Planning. CHEPE CASTANEDA unable to verbalize understanding of Interdisciplinary Patient Education. Patient and/or family were informed about the Rapid Response Team and its purpose.
[2018-06-03] MEDS ORDERED: LORazepam INJ 2 MG/ML (ATIVAN) VIAL IV PRN (18:15)
--- NOTE | 2018-06-03 18:37 | History & Physicial ---
History of Present Illness History of Present Illness Reason for visit/HPI This is a 52 year old female with a history of poorly controlled diabetes as well as noncompliance and history of narcotic drug abuse as well as kratom use. She was found unresponsive and EMS was called. She was found to have a blood sugar of 31 and was given and amp of D50. She was brought to the emergency room where she was found to be unresponsive to even painful stimuli. She was found to have unequal pupils as well. She became hypoxic and had to be intubated. She was given more dextrose for her hypoglycemia as well as IV fluids and her pupils did normalize and a perfusion scan of her brain was normal. The ER physician did speak with [facility] for possible transfer but after her perfusion scan it was decided to keep her at our facility. At this time she will be admitted to the ICU on propofol for sedation and her mental status will be assessed as we are able to wean the propofol. Her status is still very guarded. Date of Admission Jun 03, 2018 at 16:14 Date Seen by a Provider: Jun 03, 2018 Time Seen by a Provider: 18:37 I consulted on this patient on 06/03/18 18:32 Attending Physician Bailee Haider DO Admitting Physician Bailee Haider DO Consult Allergies and Home Medications Allergies Coded Allergies: codeine (Verified Allergy, Mild, ITCHING, 02/07/18) Sulfa (Sulfonamide Antibiotics) (Verified Allergy, Unknown, HIVES, 02/07/18) Home Medications Acetaminophen 650 Mg Tablet.er, 650 MG PO Q6H PRN for PAIN-MILD, (Reported) Albuterol Sulfate 18 Gm Hfa.aer.ad, 2 PUFF INH Q6H PRN for SHORTNESS OF BREATH, (Reported) Amitriptyline HCl 25 Mg Tablet, 25 MG PO HS, (Reported) Amoxicillin 500 Mg Capsule, 500 MG PO TID Prescribed by: BAILEE HAIDER on 02/10/181813 Carvedilol 25 Mg Tablet, 25 MG PO BID, (Reported) Duloxetine HCl 30 Mg Capsule.dr, 30 MG PO TID, (Reported) TAKES 1 CAPSULE IN MORNING, 2 CAPSULES AT HS Hydrocodone Bit/Acetaminophen 1 Tab Tab, 1 TAB PO Q6H PRN for PAIN-MODERATE TO SEVERE Prescribed by: BAILEE HAIDER on 02/10/181811 Insulin Aspart 300 Units/3 Ml Solution, 15 UNITS SC BID WITH MEALS, (Reported) Insulin Detemir 100 Unit/1 Ml Insuln.pen, 50 UNIT SQ BID, (Reported) Omeprazole 20 Mg Capsule.dr, 20 MG PO BID, (Reported) Ondansetron HCl 4 Mg Tab, 4 MG PO Q4H Prescribed by: BAILEE HAIDER on 02/10/181811 Pregabalin 100 Mg Capsule, 100 MG PO BID, (Reported) Tizanidine HCl 4 Mg Tablet, 4 MG PO TID PRN for MUSCLE SPASMS, (Reported) Patient Home Medication List Home Medication List Reviewed: Yes Past Hkclvcn-Bpnuzh-Rylhcd Hx Patient Social History Alcohol Use: Denies Use Recreational Drug Use: No Drug of Choice: opioids Type Used: Cigarettes 2nd Hand Smoke Exposure: Yes Recent Foreign Travel: No Contact w/other who traveled: No Recent Hopitalizations: No Recent Infectious Disease Expo: No Immunizations Up To Date Tetanus Booster (TDap): Less than 5yrs Date of Pneumonia Vaccine: Jun 09, 2008 Date of Influenza Vaccine: Mar 29, 2015 Seasonal Allergies Seasonal Allergies: Yes Surgeries Yes (Left breast cyst, x2, ORIF Right ankle) Section, Gallbladder, Orthopedic, Tubal Ligation Respiratory Yes (CPAP not used after last sleep study) COPD Cardiovascular Yes Chronic Edema/Swelling, High Cholesterol, Hypertension Neurological Yes Neuropathy 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 System Hx 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 Disorders: No Sexually Transmitted Disease: No HIV/AIDS: No 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 Genitourinary Yes Renal Failure, UTI-Chronic Gastrointestinal Yes Gastroesophageal Reflux, Pancreatitis Musculoskeletal Yes (right ankle fx with steel plate) Degenerate Disk Disease, Chronic Back Pain Endocrine History of Endocrine Disorders: Yes Endocrine Disorders: Diabetes, Insulin dep HEENT History of HEENT Disorders: No Cancer No Psychosocial History of Psychiatric Problem: Yes Behavioral Health Disorders: Sleep Difficulties, Anxiety, Depression Integumentary History of Skin or Integumenta: Yes (FREQUENT CELLULITIS--LEGS) Skin/Integumentary Disorders: Recent Skin Changes Blood Transfusions History of Blood Disorders: No Adverse Reaction to a Blood Tr: No Family Medical History Significant Family History: No Pertinent Family Hx, Diabetes Family Hx: Completed stroke 19 FATHER Congenital heart disease 19 FATHER Diabetes mellitus 19 FATHER Myocardial infarction 19 FATHER Psychosocial problem 19 FATHER (depression) 19 MOTHER (depression) Respiratory disorder 19 MOTHER (copd) Review of Systems Constitutional: weakness, other (unresponsive) EENTM: No see HPI, No no symptoms reported, No ear discharge, No hearing loss, No ear pain, No blurred vision, No double vision, No eye pain, No tearing, No vision loss, No dental problems, No hoarseness, No mouth pain, No mouth swelling , No epistaxis, No nose congestion, No nose pain, No throat pain, No throat swelling, No other Respiratory: other (respiratory failure) Cardiovascular: No no symptoms reported, No see HPI, No chest pain, No edema, No Hx of Intervention, No palpitations, No syncope, No vascular heart diseas, No other Gastrointestinal: No RUQ, No LUQ, No RLQ, No LLQ, No no symptoms reported, No see HPI, No abdominal pain, No constipation, No diarrhea, No dysphagia, No hematemesis, No heartburn, No jaundice, No loss of appetite, No melena, No nausea, No vomiting, No other Genitourinary: other (UTI) Musculoskeletal: No no symptoms reported, No see HPI, No back pain, No gout, No joint pain, No joint swelling, No muscle pain, No muscle stiffness, No muscle cramps, No muscle twitching, No muscle weakness, No neck pain, No other Skin: No no symptoms reported, No see HPI, No change in color, No change in hair/nails, No dryness, No hx of skin cancer, No lesions, No lumps, No pruritus , No rash, No other Psychiatric/Neurological: Other (unresponsive) Physical Exam Vital Signs Vital Signs - First Documented 06/03/18 06/03/18 12:00 13:10 Temp 97.5 Pulse 138 Resp 24 B/P (MAP) 165/128 (140) Pulse Ox 85 O2 Delivery OxyMask O2 Flow Rate 15.00 FiO2 90 Capillary Refill : Less Than 3 Seconds Height, Weight, BMI Height: 5'2.00" Weight: 260lbs. 0.0oz. 117.859319us; 47.6 BMI Method:Estimated General Appearance: Other (obtunded) Eyes: Bilateral Eye PERRL HEENT: Other (intubated on ventilator) Neck: Supple Respiratory: Lungs Clear, Decreased Breath Sounds Cardiovascular: Regular Rate, Rhythm Gastrointestinal: Normal Bowel Sounds, Soft Rectal: Deferred Back: Normal Inspection Extremity: No Calf Tenderness, No Pedal Edema Neurologic/Psychiatric: Other (sedated on ventilator) Skin: Warm/Dry Comments Laboratory Tests 06/03/18 12:00: White Blood Count 11.0, Red Blood Count 4.60, Hemoglobin 13.2, Hematocrit 39, Mean Corpuscular Volume 84, Mean Corpuscular Hemoglobin 29, Mean Corpuscular Hemoglobin Concent 34, Red Cell Distribution Width 14.8H, Platelet Count 401H, Mean Platelet Volume 9.7, Neutrophils (%) (Auto) 80H, Lymphocytes (%) (Auto) 16 , Monocytes (%) (Auto) 3, Eosinophils (%) (Auto) 1, Basophils (%) (Auto) 0, Neutrophils # (Auto) 8.8H, Lymphocytes # (Auto) 1.8, Monocytes # (Auto) 0.3, Eosinophils # (Auto) 0.1, Basophils # (Auto) 0.0, Sodium Level 136, Potassium Level 4.9, Chloride Level 107, Carbon Dioxide Level 20L, Anion Gap 9, Blood Urea Nitrogen 16, Creatinine 1.12, Estimat Glomerular Filtration Rate 51, BUN/ Creatinine Ratio 14, Glucose Level 31*L, Calcium Level 9.3, Corrected Calcium 9.8, Total Bilirubin 0.4, Aspartate Amino Transf (AST/SGOT) 34, Alanine Aminotransferase (ALT/SGPT) 21, Alkaline Phosphatase 161H, Troponin I < 0.30, Total Protein 8.4H, Albumin 3.4 06/03/18 12:27: Glucometer 93 06/03/18 12:40: Urine Color YELLOW, Urine Clarity VERY CLOUDYH, Urine pH 5, Urine Specific [place] 1.025H, Urine Protein 3+H, Urine Glucose (UA) NEGATIVE, Urine Ketones NEGATIVE, Urine Nitrite NEGATIVE, Urine Bilirubin NEGATIVE, Urine Urobilinogen NORMAL, Urine Leukocyte Esterase 3+H, Urine RBC (Auto) 4+H, Urine RBC 2-5H, Urine WBC TNTCH, Urine Squamous Epithelial Cells 2-5, Urine Crystals NONE, Urine Bacteria LARGEH, Urine Casts NONE, Urine Mucus NEGATIVE, Urine Yeast MODERATEH, Urine Culture Indicated YES 06/03/18 12:54: Blood Gas Puncture Site RRAD, Blood Gas Patient Temperature 97.5, Arterial Blood pH 7.22*L, Arterial Blood Partial Pressure CO2 45, Arterial Blood Partial Pressure O2 48L, Arterial Blood HCO3 18L, Arterial Blood Total CO2 19.5L, Arterial Blood Oxygen Saturation 74L, Arterial Blood Base Excess -8.3L, Dave Test YES-POS, Blood Gas Ventilator Setting NO, Blood Gas Inspired Oxygen RA 06/03/18 13:42: Glucometer 206H 06/03/18 14:15: Lactic Acid Level 1.07 06/03/18 15:50: Prothrombin Time 13.9, INR Comment 1.1, Activated Partial Thromboplast Time 30, D-Dimer 3.09H 06/03/18 16:17: Glucometer 265H Assessment/Plan Assessment and Plan 1. Hypoglycemia with Encephalopathy--admit and monitor BS and mental status 2. Acute Respiratory Failure with respiratory acidosis due to Encephalopathy-- sedated and intubated on ventilator 3. UTI--rocephin started 4. History of narcotic abuse and kratom abuse--add drug screen to urine done on admit Admission Diagnosis Admission Status: Inpatient Order (span 2 midnights) Reason for Inpatient Admission: Intubated on ventilator Clinical Quality Measures DVT/VTE Risk/Contraindication: Risk Factor Score Per Nursin RFS Level Per Nursing on Admit: 4+=Very High BAILEE HAIDER DO Jun 03, 2018 18:37
[2018-06-03] MEDS ORDERED: PANTOPRAZOLE 40 MG (PROTONIX) VIAL IV NR (18:45)
[2018-06-03] MEDS ORDERED: PANTOPRAZOLE 40 MG (PROTONIX) VIAL ONE (19:04)
[2018-06-03] MEDS: D5 LR IV SOLUTION 1,000 ML IV SCH (19:05)
[2018-06-03] MEDS: ENOXAPARIN 40 MG/0.4 ML (LOVENOX) SYR SC SCH (21:40)
[2018-06-03] MEDS ORDERED: RT-ALBUTEROL/IPRATROPIUM 3 ML (DUONEB) VIAL INH PRN (21:45)
[2018-06-03] MEDS ORDERED: RT-ALBUTEROL/IPRATROPIUM 3 ML (DUONEB) VIAL ONE (22:08)
[2018-06-03] MEDS: RT-ALBUTEROL/IPRATROPIUM 3 ML (DUONEB) VIAL INH SCH (22:14)
--- NOTE | 2018-06-03 22:35 | OPERATIVE REPORT ---
DATE OF SERVICE: 06/03/2018 PREOPERATIVE DIAGNOSIS: Venous insufficiency. POSTOPERATIVE DIAGNOSIS: Venous insufficiency. PROCEDURE: Insertion of triple lumen catheter, right IJ with ultrasound guidance. SURGEON: Ravi Chapman DO. INSERTING OPERATOR: None. ANESTHESIA: Local lidocaine. BLOOD LOSS: Scant. FLUIDS: None. POSTOPERATIVE CONDITION: Stable. INDICATION FOR PROCEDURE: The patient is a 52-year-old female who unfortunately came in with unknown loss of consciousness, unknown down time. Hypoglycemia, they need to do a CT with angio and unfortunately could not get anything larger than a 22-gauge so, due to venous insufficiency she needed a triple lumen central line placed. FINDINGS: The patient had a triple lumen catheter placement right IJ with ultrasound guidance. PROCEDURE NOTE: After informed consent was obtained, the patient was in her bed in the emergency room. She was sterilely prepped and draped in normal fashion. Local lidocaine was used to infiltrate the skin in the right neck. Then, using ultrasound guidance located the right IJ and then under direct visualization, watched the needle go into the IJ. Good flash of blood was seen. Removed the syringe, placed a guidewire down the needle using Seldinger technique, it went in easily, removed the guidewire and then made a stab incision at the guidewire and then over the guidewire. The stab incision was made with #11 blade and then over the guidewire placed a dilator using Seldinger technique, it went in easily, removed this and then over the guidewire I placed the triple lumen catheter again it went in easily, removed the wire easily aspirated, got a good flash of blood and then easily flushed all 3 ports. This was then sutured in place with a 2-0 silk suture to hold this in place. Air was then cleaned and dried and a dressing was placed by the nurse. The patient tolerated the procedure. Sponge and needle count correct at the end of the case. Job ID: [id number] DocumentID: [id number] Dictated Date: 06/03/2018 14:16:29 Manager Front Date: 06/03/2018 22:34:52 Dictated By: RAVI CHAPMAN DO
[2018-06-04] VITALS (33 sets, daily range): BP systolic 103–152; BP diastolic 54–92
[2018-06-04] MEDS: RT-ALBUTEROL/IPRATROPIUM 3 ML (DUONEB) VIAL INH SCH ×6 (02:15→21:45)
[2018-06-04 03:49] LABS: BASOPHILS % (AUTO) 0 % (0-10); EOSINOPHILS % (AUTO) 0 % (0-10); HEMATOCRIT 31 % (35-52); HEMOGLOBIN 10.3 G/DL (11.5-16.0); LYMPHOCYTES # (AUTO) 1.6 X 10^3 (1.0-4.0); LYMPHOCYTES % (AUTO) 12 % (12-44); MEAN CORPUSCULAR HEMOGLOBIN 29 PG (25-34); MEAN CORPUSCULAR HGB CONC 33 G/DL (32-36); MEAN CORPUSCULAR VOLUME 86 FL (80-99); MEAN PLATELET VOLUME 9.8 FL (7.4-10.4); MONOCYTES # (AUTO) 0.8 X 10^3 (0.0-1.0); MONOCYTES % (AUTO) 6 % (0-12); NEUTROPHILS % (AUTO) 82 % (42-75); PLATELET COUNT 324 10^3/uL (130-400); RED BLOOD COUNT 3.61 10^6/uL (4.35-5.85); RED CELL DISTRIBUTION WIDTH 14.9 % (10.0-14.5); WHITE BLOOD COUNT 13.5 10^3/uL (4.3-11.0)
[2018-06-04 03:49] LABS: ABG BASE EXCESS -3.2 MMOL/L (-2.5-2.5); ABG OXYGEN SATURATION 100 % (94-100); ABG PCO2 36 MMHG (35-45); ABG PH 7.38 (7.37-7.43); ABG PO2 158 MMHG (79-93)
[2018-06-04 03:54] LABS: ALLENS TEST YES-POS; INSPIRED O2 40%; PATIENT TEMP 99.2; VENTILATOR YES
[2018-06-04 04:33] LABS: ALBUMIN 2.4 GM/DL (3.2-4.5); BILIRUBIN,TOTAL 0.4 MG/DL (0.1-1.0); CALCIUM 8.5 MG/DL (8.5-10.1); CREATININE SERUM 1.14 MG/DL (0.60-1.30); MAGNESIUM 1.5 MG/DL (1.8-2.4); PHOSPHORUS 3.5 MG/DL (2.3-4.7); TOTAL PROTEIN 6.1 GM/DL (6.4-8.2)
[2018-06-04] MEDS: D5 LR IV SOLUTION 1,000 ML IV SCH (04:49)
[2018-06-04] MEDS: MAGNESIUM 1 GM/100 ML IVPB 100 ML IV SCH ×2 (05:11→06:15)
--- NOTE | 2018-06-04 06:07 | Pulmonary Consultation ---
History of Present Illness History of Present Illness Date of Consultation 06/04/18 06:02 Time Seen by Provider: 06:02 Date of Admission History of Present Illness 52yo with hx of poorly controlled DM, noncompliance and narcotic drug abuse she presented to ED via EMS after being found unresponsive. Upon ED arrival her BS was found to be 31 and she was given an amp of D50. While in the ED she also developed worsening hypoxia and was intubated. Perfusion scan to brain was normal. She is currently in ICU on ventilator and BS have normalized. I am consulted for ICU management. Allergies and Home Medications Allergies Coded Allergies: codeine (Verified Allergy, Mild, ITCHING, 02/07/18) Sulfa (Sulfonamide Antibiotics) (Verified Allergy, Unknown, HIVES, 02/07/18) Home Medications Acetaminophen 650 Mg Tablet.er, 650 MG PO Q6H PRN for PAIN-MILD, (Reported) Albuterol Sulfate 18 Gm Hfa.aer.ad, 2 PUFF INH Q6H PRN for SHORTNESS OF BREATH, (Reported) Carvedilol 25 Mg Tablet, 25 MG PO BID, (Reported) Duloxetine HCl 30 Mg Capsule.dr, 30 MG PO DAILY, (Reported) Duloxetine HCl 30 Mg Capsule.dr, 60 MG PO HS, (Reported) Insulin Aspart 300 Units/3 Ml Solution, 15 UNITS SC BID WITH MEALS, (Reported) Insulin Detemir 100 Unit/1 Ml Insuln.pen, 50 UNIT SQ BID, (Reported) Omeprazole 20 Mg Capsule.dr, 20 MG PO BID, (Reported) Ondansetron HCl 4 Mg Tab, 4 MG PO Q4H PRN for NAUSEA/VOMITING-1ST LINE, ( Reported) Pregabalin 100 Mg Capsule, 100 MG PO BID, (Reported) Past Pfxxqok-Ovvrwj-Tovuwx Hx Patient Social History Alcohol Use: Denies Use Recreational Drug Use: No Drug of Choice: opioids Type Used: Cigarettes 2nd Hand Smoke Exposure: Yes Recent Foreign Travel: No Contact w/Someone Who Travel: No Recent Infectious Disease Expo: No Recent Hopitalizations: No Immunizations Up To Date Tetanus Booster (TDap): Less than 5yrs Date of Pneumonia Vaccine: Jun 09, 2008 Date of Influenza Vaccine: Mar 29, 2015 Seasonal Allergies Seasonal Allergies: Yes Past Medical History Surgeries: Yes (Left breast cyst, x2, ORIF Right ankle) Section, Gallbladder, Orthopedic, Tubal Ligation Respiratory: Yes (CPAP not used after last sleep study) Sleep Apnea, COPD Cardiac: Yes Chronic Edema/Swelling, High Cholesterol, Hypertension Neurological: Yes Neuropathy 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 Disorders: No 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 Sexually Transmitted Disease: No HIV/AIDS: No Genitourinary: Yes Renal Failure, UTI-Chronic Gastrointestinal: Yes Gastroesophageal Reflux, Pancreatitis Musculoskeletal: Yes (right ankle fx with steel plate) Degenerate Disk Disease, Chronic Back Pain Endocrine: Yes Diabetes, Insulin dep HEENT: No Cancer: No Psychosocial: Yes Sleep Difficulties, Anxiety, Depression Integumentary: Yes (FREQUENT CELLULITIS--LEGS) Recent Skin Changes Blood Disorders: No Adverse Reaction/Blood Tranf: No Family Medical History Completed stroke 19 FATHER Congenital heart disease 19 FATHER Diabetes mellitus 19 FATHER Myocardial infarction 19 FATHER Psychosocial problem 19 FATHER (depression) 19 MOTHER (depression) Respiratory disorder 19 MOTHER (copd) No Pertinent Family Hx, Diabetes Review of Systems Time Seen by Provider: 05:51 Sepsis Event Evaluation Height, Weight, BMI Height: 5'2.00" Weight: 260lbs. 0.0oz. 117.548329mw; 47.6 BMI Method:Estimated Exam Exam Vital Signs Date Time Temp Pulse Resp B/P (MAP) Pulse Ox O2 Delivery O2 Flow Rate FiO2 06/04/18 04:30 92 17 99 40 06/04/18 04:12 98.3 87 18 105/57 100 Mechanical Ventilator 80.00 06/04/18 04:00 98.4 06/04/18 02:15 87 17 99 60 06/04/18 00:40 90 19 100 60 06/04/18 00:08 98.4 06/04/18 00:08 98.3 87 18 105/57 100 Mechanical Ventilator 80.00 06/04/18 00:00 84 16 109/70 (83) 100 Mechanical Ventilator 60.00 06/03/18 23:00 87 18 105/57 (73) 100 Mechanical Ventilator 60.00 06/03/18 22:32 89 18 111/74 (86) 100 Mechanical Ventilator 60.00 06/03/18 22:14 86 19 100 80 06/03/18 22:00 88 16 106/65 (79) 100 Mechanical Ventilator 80.00 06/03/18 21:37 82 100 06/03/18 21:00 85 18 108/57 (74) 100 Mechanical Ventilator 80.00 06/03/18 20:00 85 11 111/74 (86) 100 Mechanical Ventilator 80.00 06/03/18 19:55 98.3 81 16 102/63 100 Mechanical Ventilator 80.00 06/03/18 19:53 98.3 81 16 102/63 (76) 100 Mechanical Ventilator 80.00 06/03/18 19:50 82 17 100 Mechanical Ventilator 80.00 06/03/18 19:49 82 17 100 100 06/03/18 19:00 90 18 98/63 (75) 100 Mechanical Ventilator 100.00 06/03/18 18:30 90 17 99/60 (73) 100 Mechanical Ventilator 50.00 06/03/18 18:15 90 17 94/61 (72) 100 Mechanical Ventilator 50.00 06/03/18 18:00 92 17 94/61 (72) 100 Mechanical Ventilator 50.00 06/03/18 17:45 93 100/65 (77) 100 Mechanical Ventilator 50.00 06/03/18 17:42 99 Mechanical Ventilator 50 06/03/18 17:30 83 19 111/71 (84) 100 Mechanical Ventilator 50.00 06/03/18 17:28 92 125/83 06/03/18 17:20 93 06/03/18 17:16 96 21 100 90 06/03/18 17:15 95 21 130/99 (109) 100 Mechanical Ventilator 50.00 06/03/18 16:52 92 18 116/98 (104) 99 Mechanical Ventilator 06/03/18 16:05 78 104/60 Mechanical Ventilator 06/03/18 13:16 100 20 102/71 97 Mechanical Ventilator 06/03/18 13:10 96 20 90 90 06/03/18 12:00 97.5 138 24 165/128 (140) OxyMask 06/03/18 12:00 85 OxyMask 15.00 I & O 06/04/18 07:00 Intake Total 1550 ml Output Total 2100 ml Balance -550 ml Height & Weight Height: 5'2.00" Weight: 260lbs. 0.0oz. 117.021199ut; 47.6 BMI Method:Estimated General Appearance: Other (obtunded) HEENT: Other (intubated on ventilator) Neck: Supple Respiratory: Lungs Clear, Decreased Breath Sounds Cardiovascular: Regular Rate, Rhythm Capillary Refill: Less Than 3 Seconds Gastrointestinal: other (obese) Extremity: No Calf Tenderness, No Pedal Edema Neurologic/Psychiatric: Other (sedated on ventilator) Skin: Warm/Dry Results Lab Laboratory Tests 06/03/18 12:00 06/04/18 03:30 Assessment/Plan Assessment/Plan Acute respiratory failure with probable aspiration -Copious amounts of secretions per RT. -Will do bronchoscopy tomorrow Acute severe hypoglycemia Metabolic encephalopathy secondary to hypoglycemia Sepsis with UTI and aspiration pneumoia -Continue vancomycin and zosyn -Pt is also on Diflucan HX of narcotic abuse and kratom abuse WHITNEY BEASLEY DO Jun 04, 2018 06:07
--- NOTE | 2018-06-04 07:00 | Diagnostic Imaging Report ---
INDICATION: Respiratory failure Portable chest 3:28 AM There is an ET tube projecting over the trachea. NG tube projects over the stomach. Right jugular PICC line tip projects over the SVC. The infiltrates in the lungs have shown considerable improvement since the previous day with only minimal residual infiltrate remaining at the lung bases. IMPRESSION: Marked improvement of the pulmonary infiltrates compared to previous day study. There is minimal residual medial basilar infiltrate. Dictated by: Dictated on workstation # [id number]
[2018-06-04] MEDS: ENOXAPARIN 40 MG/0.4 ML (LOVENOX) SYR SC SCH ×2 (07:58→20:13)
[2018-06-04] MEDS: PANTOPRAZOLE 40 MG (PROTONIX) VIAL IV SCH (07:59)
[2018-06-04] MEDS ORDERED: ONDN4T PO (09:11)
[2018-06-04] MEDS ORDERED: DULO30CA3 PO (09:11)
--- NOTE | 2018-06-04 09:13 | NUR ---
UNABLE TO SPEAK WITH THE PATIENT AT THIS TIME. I UPDATED THE MED REC USING THE EXT MED HX.
--- NOTE | 2018-06-04 10:32 | NUR ---
CM/SS. Initial review, patient is intubated at this time. It appears Pastoral Care has engaged with multiple family members in a supportive role. Continue intermittent reviews as patient progresses and discharge needs are more clear.
[2018-06-04] MEDS ORDERED: inSUlin ASPART (NovoLOG) 1 UNIT/0.01 ML (CHARGE PER UNIT) SC SCH (12:00)
[2018-06-04] MEDS ORDERED: FLUCONAZOLE 200 MG/100 ML 100 ML IV NR (12:55)
[2018-06-04] MEDS ORDERED: VANCOMYCIN INJECTION 2,000 MG in NS IV 500 ML 500 ML IV NR (13:00)
[2018-06-04] MEDS: 1/2 NS IV SOLUTION 1,000 ML IV SCH (13:02)
[2018-06-04] MEDS: PIPERACILLIN SODIUM/TAZOBACTAM 4.5 GM in NS (IVPB) 100 ML IV SCH ×2 (13:03→20:13)
--- NOTE | 2018-06-04 13:06 | NUR ---
VANCOMYCIN DOSING SCR 1.14; CRCL ~ 71; BOLUS VANC 20 MG/KG ~ 2 GM THEN VANC 15 MG/KG ~ 1500 MG Q12H CHECK TROUGH LEVEL 06/05 AT 1200 HOLD DOSE AND CONTACT PHARMACY IF LEVEL IS GREATER THAN 20 OR LESS THAN 10
[2018-06-04] MEDS ORDERED: inSUlin (REGULAR) HUMAN 1 UNIT/0.01 ML (CHARGE PER UNIT) ONE (13:32)
[2018-06-04] MEDS ORDERED: inSUlin ASPART (NovoLOG) 1 UNIT/0.01 ML (CHARGE PER UNIT) ONE (13:34)
--- NOTE | 2018-06-04 14:21 | NUR ---
Dr. Ceja notified that pt remains not awake with propofol off since 629. Order to draw ABG at this time
--- NOTE | 2018-06-04 14:25 | NUR ---
Follow up oceanographic meteorologist support provided to pt's family at bedside and in family waiting room. Introduced them to chaplain Rebollar, and encouraged them to have the automotive salesperson oceanographic meteorologist contacted as needed and helpful.
[2018-06-04 14:50] LABS: ABG BASE EXCESS -3.3 MMOL/L (-2.5-2.5); ABG OXYGEN SATURATION 99 % (94-100); ABG PCO2 34 MMHG (35-45); ABG PO2 114 MMHG (79-93); ABG TCO2 21.7 MMOL/L (21.0-31.0)
[2018-06-04] MEDS: inSUlin ASPART (NovoLOG) 1 UNIT/0.01 ML (CHARGE PER UNIT) SC SCH ×4 (14:50→20:55)
[2018-06-04 14:51] LABS: ALLENS TEST YES-POS; INSPIRED O2 30%; VENTILATOR YES
--- NOTE | 2018-06-04 14:55 | NUR ---
ABG results sent to Dr. Ceja
[2018-06-04] MEDS ORDERED: cefTRIAXone 1 GM/NS 50 ML IVPB IV SCH ×2 (17:00)
--- NOTE | 2018-06-04 18:30 | Progress Note (SOAP) ---
Subjective Date Seen by a Provider: Jun 04, 2018 Time Seen by a Provider: 12:30 Subjective/Events-last exam Fwup respiratory failure, hypoxic encephalopathy, UTI, history of narcotic abuse. Blood cultures are growing out probable staph. She has been off sedation since this morning and is unresponsive even to sternal rub. Focused Exam Lactate Level 06/03/18 14:15: Lactic Acid Level 1.07 Objective Exam Vital Signs Date Time Temp Pulse Resp B/P (MAP) Pulse Ox O2 Delivery O2 Flow Rate FiO2 06/04/18 18:00 99 22 110/70 (83) 96 Mechanical Ventilator 30.00 06/04/18 17:00 98 19 121/79 (93) 95 Mechanical Ventilator 30.00 06/04/18 16:00 93 23 132/82 (99) 97 Mechanical Ventilator 30.00 06/04/18 15:00 104 37 147/76 (99) 98 Mechanical Ventilator 30.00 06/04/18 14:51 98 25 97 30 06/04/18 14:00 90 21 128/81 (97) 94 Mechanical Ventilator 30.00 06/04/18 13:00 98 19 150/92 (111) 97 Mechanical Ventilator 30.00 06/04/18 13:00 101 06/04/18 12:00 94 20 151/90 (110) 97 Mechanical Ventilator 30.00 06/04/18 12:00 99.9 06/04/18 12:00 Mechanical Ventilator 30 06/04/18 11:00 98 14 143/80 (101) 98 Mechanical Ventilator 30.00 06/04/18 10:43 102 23 97 30 06/04/18 10:00 103 23 145/88 (107) 96 Mechanical Ventilator 30.00 06/04/18 09:00 98 12 146/82 (103) 97 Mechanical Ventilator 30.00 06/04/18 08:00 Mechanical Ventilator 30 06/04/18 08:00 100.1 06/04/18 08:00 96 19 125/79 (94) 96 Mechanical Ventilator 30.00 06/04/18 07:16 94 06/04/18 07:00 96 19 124/72 (89) 94 Mechanical Ventilator 30.00 06/04/18 06:25 90 19 97 30 06/04/18 06:00 92 17 115/67 (83) 97 Mechanical Ventilator 30.00 06/04/18 05:00 90 18 110/64 (79) 97 Mechanical Ventilator 30.00 06/04/18 04:47 Mechanical Ventilator 30.00 06/04/18 04:30 92 17 99 40 06/04/18 04:12 98.3 87 18 105/57 100 Mechanical Ventilator 80.00 06/04/18 04:00 92 18 106/54 (71) 98 Mechanical Ventilator 40.00 06/04/18 04:00 98.4 06/04/18 04:00 Mechanical Ventilator 06/04/18 03:00 89 19 104/59 (74) 98 Mechanical Ventilator 40.00 06/04/18 02:39 Mechanical Ventilator 40.00 06/04/18 02:15 87 17 99 60 06/04/18 02:00 89 18 113/62 (79) 99 Mechanical Ventilator 60.00 06/04/18 01:00 90 18 107/66 (80) 100 Mechanical Ventilator 60.00 06/04/18 01:00 90 06/04/18 00:40 90 19 100 60 06/04/18 00:08 98.4 06/04/18 00:08 98.3 87 18 105/57 100 Mechanical Ventilator 80.00 06/04/18 00:00 Mechanical Ventilator 06/04/18 00:00 84 16 109/70 (83) 100 Mechanical Ventilator 60.00 06/03/18 23:00 87 18 105/57 (73) 100 Mechanical Ventilator 60.00 06/03/18 22:32 89 18 111/74 (86) 100 Mechanical Ventilator 60.00 06/03/18 22:14 86 19 100 80 06/03/18 22:00 88 16 106/65 (79) 100 Mechanical Ventilator 80.00 06/03/18 21:37 82 100 06/03/18 21:00 85 18 108/57 (74) 100 Mechanical Ventilator 80.00 06/03/18 20:00 Mechanical Ventilator 06/03/18 20:00 85 11 111/74 (86) 100 Mechanical Ventilator 80.00 06/03/18 19:55 98.3 81 16 102/63 100 Mechanical Ventilator 80.00 06/03/18 19:53 98.3 81 16 102/63 (76) 100 Mechanical Ventilator 80.00 06/03/18 19:50 82 17 100 Mechanical Ventilator 80.00 06/03/18 19:49 82 17 100 100 06/03/18 19:00 90 06/03/18 19:00 90 18 98/63 (75) 100 Mechanical Ventilator 100.00 06/03/18 18:30 90 17 99/60 (73) 100 Mechanical Ventilator 50.00 I & O 06/04/18 07:00 Intake Total 1650 ml Output Total 2100 ml Balance -450 ml Capillary Refill : Less Than 3 Seconds General Appearance: Other (on ventilator) Neck: Supple Respiratory: Lungs Clear Cardiovascular: Regular Rate, Rhythm Gastrointestinal: normal bowel sounds, soft Extremity: No Pedal Edema Neurologic/Psychiatric: Other (on ventilator) Skin: Warm/Dry Results Lab Laboratory Tests 06/03/18 18:58: Glucometer 191H 06/03/18 19:58: Glucometer 199H 06/03/18 22:48: Glucometer 209H 06/04/18 00:10: Glucometer 209H 06/04/18 01:54: Glucometer 212H 06/04/18 03:30: White Blood Count 13.5H, Red Blood Count 3.61L, Hemoglobin 10.3#L, Hematocrit 31L, Mean Corpuscular Volume 86, Mean Corpuscular Hemoglobin 29, Mean Corpuscular Hemoglobin Concent 33, Red Cell Distribution Width 14.9H, Platelet Count 324, Mean Platelet Volume 9.8, Neutrophils (%) (Auto) 82H, Lymphocytes (% ) (Auto) 12, Monocytes (%) (Auto) 6, Eosinophils (%) (Auto) 0, Basophils (%) ( Auto) 0, Neutrophils # (Auto) 11.0H, Lymphocytes # (Auto) 1.6, Monocytes # (Auto ) 0.8, Eosinophils # (Auto) 0.0, Basophils # (Auto) 0.0, Sodium Level 135, Potassium Level 4.0, Chloride Level 107, Carbon Dioxide Level 18L, Anion Gap 10 , Blood Urea Nitrogen 12, Creatinine 1.14, Estimat Glomerular Filtration Rate 50 , BUN/Creatinine Ratio 11, Glucose Level 219H, Calcium Level 8.5, Corrected Calcium 9.8, Phosphorus Level 3.5, Magnesium Level 1.5L, Total Bilirubin 0.4, Aspartate Amino Transf (AST/SGOT) 21, Alanine Aminotransferase (ALT/SGPT) 12, Alkaline Phosphatase 121, Total Protein 6.1L, Albumin 2.4L, Triglycerides Level 160H, Cholesterol Level 140, LDL Cholesterol Direct 101, VLDL Cholesterol 32, HDL Cholesterol 31L 06/04/18 03:40: Blood Gas Puncture Site R RAD, Blood Gas Patient Temperature 99.2, Arterial Blood pH 7.38, Arterial Blood Partial Pressure CO2 36, Arterial Blood Partial Pressure O2 158H, Arterial Blood HCO3 21L, Arterial Blood Total CO2 22.0, Arterial Blood Oxygen Saturation 100, Arterial Blood Base Excess -3.2L, Dave Test YES-POS, Blood Gas Ventilator Setting YES, Blood Gas Inspired Oxygen 40% 06/04/18 06:34: Glucometer 257H 06/04/18 08:00: Glucometer 271H 06/04/18 09:58: Glucometer 266H 06/04/18 12:03: Glucometer 288H 06/04/18 14:43: Blood Gas Puncture Site R RADIAL, Blood Gas Patient Temperature 99.0, Arterial Blood pH 7.40, Arterial Blood Partial Pressure CO2 34L, Arterial Blood Partial Pressure O2 114H, Arterial Blood HCO3 21L, Arterial Blood Total CO2 21.7, Arterial Blood Oxygen Saturation 99, Arterial Blood Base Excess -3.3L, Dave Test YES-POS, Blood Gas Ventilator Setting YES, Blood Gas Inspired Oxygen 30% 06/04/18 15:29: Glucometer 186H Microbiology 06/03/18 Blood Culture - Preliminary, Resulted No growth 06/03/18 Urine Culture - Preliminary, Resulted Culture In Progress Assessment/Plan Assessment/Plan Assess & Plan/Chief Complaint 1. Acute Respiratory Failure with concern for aspiration--on ventilator, bronchoscopy tomorrow 2. Hypoglycemic encephalopathy--BS normalized 3. UTI--change antibiotics due to positive blood culture 4. Sepsis--change antibiotics to Vanc and zosyn and cover with diflucan as well as patient has had recurrent fungal infections in the past 5. Long discussion with the family about guarded prognosis but will see what bronchoscopy shows and treat sepsis and see if improves Clinical Quality Measures Admission Status Admission Dx 1. Hypoglycemia with Encephalopathy--admit and monitor BS and mental status 2. Acute Respiratory Failure with respiratory acidosis due to Encephalopathy-- sedated and intubated on ventilator 3. UTI--rocephin started 4. History of narcotic abuse and kratom abuse--add drug screen to urine done on admit DVT/VTE Risk/Contraindication: Risk Factor Score Per Nursin RFS Level Per Nursing on Admit: 4+=Very High ORENDER,MIRELA S DO Jun 04, 2018 18:30
[2018-06-04] MEDS: DEXMEDETOMIDINE INJECTION 200 MCG in NS (IVPB) 50 ML IV SCH (21:54)
[2018-06-05] VITALS (40 sets, daily range): BP systolic 88–170; BP diastolic 54–128
[2018-06-05] MEDS: inSUlin ASPART (NovoLOG) 1 UNIT/0.01 ML (CHARGE PER UNIT) SC SCH ×6 (00:12→21:44)
[2018-06-05] MEDS: 1/2 NS IV SOLUTION 1,000 ML IV SCH (00:55)
[2018-06-05] MEDS ORDERED: VANCOMYCIN INJECTION 1,500 MG in NS IV 500 ML 500 ML IV SCH (01:00)
[2018-06-05] MEDS: RT-ALBUTEROL/IPRATROPIUM 3 ML (DUONEB) VIAL INH SCH ×6 (01:58→21:11)
[2018-06-05] MEDS: DEXMEDETOMIDINE INJECTION 200 MCG in NS (IVPB) 50 ML IV SCH (03:13)
--- NOTE | 2018-06-05 03:28 | NUR ---
This RN called EICU on 06/04/18 at 6819 and 06/05/18 at 3051 to request discontinuation of order to notify provider if blood sugar <200 and >300 as it contraindicates new order for Novolog administration according to Sliding Scale "A".
--- NOTE | 2018-06-05 03:28 | NUR ---
This RN called EICU to notify of decreasing BP, pt agitated so Precedex gtt on at this time, lowered to 0.5mcg/kg/hr. At 0402 Received order to Bolus 500cc Albumin 5% over 30 min.
[2018-06-05 04:28] LABS: BASOPHILS % (AUTO) 0 % (0-10); EOSINOPHILS % (AUTO) 0 % (0-10); HEMATOCRIT 28 % (35-52); HEMOGLOBIN 9.2 G/DL (11.5-16.0); LYMPHOCYTES # (AUTO) 1.4 X 10^3 (1.0-4.0); LYMPHOCYTES % (AUTO) 17 % (12-44); MEAN CORPUSCULAR HEMOGLOBIN 28 PG (25-34); MEAN CORPUSCULAR HGB CONC 33 G/DL (32-36); MEAN CORPUSCULAR VOLUME 87 FL (80-99); MEAN PLATELET VOLUME 10.1 FL (7.4-10.4); MONOCYTES # (AUTO) 0.6 X 10^3 (0.0-1.0); MONOCYTES % (AUTO) 7 % (0-12); NEUTROPHILS # (AUTO) 6.4 X 10^3 (1.8-7.8); NEUTROPHILS % (AUTO) 76 % (42-75); PLATELET COUNT 210 10^3/uL (130-400); RED BLOOD COUNT 3.25 10^6/uL (4.35-5.85); RED CELL DISTRIBUTION WIDTH 14.6 % (10.0-14.5); WHITE BLOOD COUNT 8.5 10^3/uL (4.3-11.0)
[2018-06-05] MEDS ORDERED: ALBUMIN 5% 12.5 GM/250 ML 500 ML IV ONE (04:31)
[2018-06-05] MEDS: ALBUMIN 5% 12.5 GM/250 ML 250 ML IV SCH ×2 (04:40→04:55)
[2018-06-05 04:49] LABS: BUN/CREATININE RATIO 11; CALCIUM 7.7 MG/DL (8.5-10.1); CARBON DIOXIDE 20 MMOL/L (21-32); CHLORIDE 108 MMOL/L (98-107); CREATININE SERUM 0.96 MG/DL (0.60-1.30); GFR ESTIMATED > 60; GLUCOSE 147 MG/DL (70-105); MAGNESIUM 1.6 MG/DL (1.8-2.4); PHOSPHORUS 2.8 MG/DL (2.3-4.7); POTASSIUM 3.8 MMOL/L (3.6-5.0); SODIUM 137 MMOL/L (135-145)
[2018-06-05] MEDS: PIPERACILLIN SODIUM/TAZOBACTAM 4.5 GM in NS (IVPB) 100 ML IV SCH ×3 (04:55→21:41)
[2018-06-05] MEDS: MAGNESIUM 1 GM/100 ML IVPB 100 ML IV SCH ×3 (05:29→07:41)
[2018-06-05] MEDS: KCL 20 MEQ TAB (K-DUR) PO SCH (05:29)
[2018-06-05] MEDS: POTASSIUM CL 10MEQ/50ML IVPB 50 ML IV SCH (05:29)
--- NOTE | 2018-06-05 05:45 | Pulmonary Progress Note ---
Subjective Time Seen by a Provider: 05:48 Subjective/Events-last exam Pt is sedated on vent. Sepsis Event Evaluation Height, Weight, BMI Height: 5'2.00" Weight: 260lbs. 0.0oz. [id number]; 47.6 BMI Method:Estimated Focused Exam Lactate Level 06/03/18 14:15: Lactic Acid Level 1.07 Exam Exam Vital Signs Date Time Temp Pulse Resp B/P (MAP) Pulse Ox O2 Delivery O2 Flow Rate FiO2 06/05/18 04:46 99.8 67 20 88/57 99 Mechanical Ventilator 80.00 06/05/18 04:00 66 18 94/60 (71) 99 Mechanical Ventilator 30.00 06/05/18 03:44 67 20 99 30 06/05/18 03:00 63 18 91/54 (66) 99 Mechanical Ventilator 30.00 06/05/18 02:00 75 19 103/62 (76) 98 Mechanical Ventilator 30.00 06/05/18 01:59 73 19 98 30 06/05/18 01:00 82 18 100/60 (73) 98 Mechanical Ventilator 30.00 06/05/18 01:00 82 06/05/18 00:34 80 19 97 30 06/05/18 00:00 99.8 06/05/18 00:00 Mechanical Ventilator 30 06/05/18 00:00 80 18 100/57 (71) 97 Mechanical Ventilator 30.00 06/04/18 23:00 96 20 107/64 (78) 97 Mechanical Ventilator 30.00 06/04/18 22:00 100 21 124/69 (87) 97 Mechanical Ventilator 30.00 06/04/18 21:46 113 24 98 30 06/04/18 21:45 99.8 96 20 107/64 97 Mechanical Ventilator 80.00 06/04/18 21:00 101 20 124/74 (91) 97 Mechanical Ventilator 30.00 06/04/18 20:34 98 21 97 30 06/04/18 20:00 105 22 130/84 (99) 98 Mechanical Ventilator 30.00 06/04/18 20:00 99.6 06/04/18 20:00 Mechanical Ventilator 30 06/04/18 19:00 108 06/04/18 19:00 108 18 129/77 (94) 97 Mechanical Ventilator 30.00 06/04/18 18:27 110 30 97 30 06/04/18 18:00 99 22 110/70 (83) 96 Mechanical Ventilator 30.00 06/04/18 17:00 98 19 121/79 (93) 95 Mechanical Ventilator 30.00 06/04/18 16:00 93 23 132/82 (99) 97 Mechanical Ventilator 30.00 06/04/18 16:00 99.0 06/04/18 16:00 Mechanical Ventilator 30 06/04/18 15:00 104 37 147/76 (99) 98 Mechanical Ventilator 30.00 06/04/18 14:51 98 25 97 30 06/04/18 14:00 90 21 128/81 (97) 94 Mechanical Ventilator 30.00 06/04/18 13:00 98 19 150/92 (111) 97 Mechanical Ventilator 30.00 06/04/18 13:00 101 06/04/18 12:00 94 20 151/90 (110) 97 Mechanical Ventilator 30.00 06/04/18 12:00 99.9 06/04/18 12:00 Mechanical Ventilator 30 06/04/18 11:00 98 14 143/80 (101) 98 Mechanical Ventilator 30.00 06/04/18 10:43 102 23 97 30 06/04/18 10:00 103 23 145/88 (107) 96 Mechanical Ventilator 30.00 06/04/18 09:00 98 12 146/82 (103) 97 Mechanical Ventilator 30.00 06/04/18 08:00 Mechanical Ventilator 30 06/04/18 08:00 100.1 06/04/18 08:00 96 19 125/79 (94) 96 Mechanical Ventilator 30.00 06/04/18 07:16 94 06/04/18 07:00 96 19 124/72 (89) 94 Mechanical Ventilator 30.00 06/04/18 06:25 90 19 97 30 06/04/18 06:00 92 17 115/67 (83) 97 Mechanical Ventilator 30.00 I & O 06/05/18 07:00 Intake Total 2435 ml Output Total 1625 ml Balance 810 ml Height & Weight Height: 5'2.00" Weight: 260lbs. 0.0oz. 117.432850qr; 47.6 BMI Method:Estimated General Appearance: No Apparent Distress, WD/WN, Other (on ventilator) HEENT: Other (intubated on ventilator) Neck: Supple Respiratory: Lungs Clear, Decreased Breath Sounds Cardiovascular: Regular Rate, Rhythm Capillary Refill: Less Than 3 Seconds Gastrointestinal: normal bowel sounds, soft Extremity: No Pedal Edema Neurologic/Psychiatric: Other (on ventilator) Skin: Warm/Dry Lymphatic: No Adenopathy Results Lab Laboratory Tests 06/03/18 12:00 06/04/18 03:30 06/05/18 03:25 Assessment/Plan Assessment/Plan Acute respiratory failure with probable aspiration -Copious amounts of secretions per RT. -Will do bronchoscopy today -Will attempt vent weaning today after bronchoscopoy S. Aureus bacteremia -Continue vancomycin -Check echocardiogram Acute severe hypoglycemia - improved -monitor Metabolic encephalopathy secondary to hypoglycemia Sepsis with UTI and aspiration pneumoia -Continue vancomycin and zosyn -Pt is also on Diflucan HX of narcotic abuse and kratom abuse WHITNEY BEASLEY DO Jun 05, 2018 05:45
[2018-06-05] MEDS ORDERED: NS IV 1000 ML 1,000 ML ONE (05:54)
[2018-06-05] MEDS ORDERED: fentaNYL INJECTION 100 MCG/2 ML AMP ONE (05:55)
[2018-06-05] MEDS ORDERED: MIDAZOLAM 5 MG/5 ML (VERSED) VIAL ONE (05:55)
[2018-06-05] MEDS ORDERED: NS IV 1000 ML 1,000 ML IV SCH (06:00)
--- NOTE | 2018-06-05 06:05 | NUR ---
At 0605 Dr. Ceja ordered this RN to administer 2mg Versed IVP, 50mcg Fentanyl IVP, and 5ML propofol IVP. At 0609 [address] started. At 0615 Dr[address] Ceja ordered this RN to administer 2mg Versed IVP and 25mcg Fentanyl IVP. At 0620 Bronchoscopy complete, pt vitals stable at this time. At 0745 this RN wasted remainder 1mg Versed, 25mcg Fentanyl and 95ML propofol witnessed by SHELBY Youngblood.
--- NOTE | 2018-06-05 06:34 | Pulmonary Procedures ---
Pulmonary Procedures Date of Procedure Date of Service: Jun 05, 2018 Bronch Bronchoscopy with bronchoalveolar lavage (BAL), transbronchial washes. Multiple saline lavages bilaterally with multiple passes required secondary to mucous plugs. Preop DX aspiration pneumonia, mucous plugging Postop DX: same Complications: none After informed consent obtained and formal time out pt was sedated using Fentanyl and Versed. Bronchoscope was advanced through the nare and vocal cords. 1% lidocaine was used to anesthetize vocal cords, epiglottis, mani, and left/right main stem bronchus. An anatomical tour was undertaken down to the segmental bronchi bilaterally. No endobronchial lesions noted. Multiple saline lavages bilaterally with multiple passes required secondary to mucous plugs. . Pt tolerated procedure well. No complications noted. Stat CXR is pending. WHITNEY BEASLEY DO Jun 05, 2018 06:34
[2018-06-05 06:43] LABS: ABG BASE EXCESS -3.3 MMOL/L (-2.5-2.5); ABG OXYGEN SATURATION 99 % (94-100); ABG PCO2 37 MMHG (35-45); ABG PH 7.38 (7.37-7.43); ABG PO2 115 MMHG (79-93); INSPIRED O2 50%; PATIENT TEMP 99.2; VENTILATOR YES
--- NOTE | 2018-06-05 07:23 | Diagnostic Imaging Report ---
INDICATION: Post bronchoscopy. Intubated EXAMINATION: Chest 06/05/2018 Comparison made to 06/05/2018 at the 3:34 a.m. FINDINGS: The heart is stable. Pulmonary vasculature is congested. Findings of worsening edema seen throughout both lungs with bibasilar infiltrates likely. There are no significant effusions. No pneumothorax. Feeding tube tip is seen in the left midabdomen. There is an ET tube tip, within approximately a centimeter from the mani. This could be pulled back slightly as clinically indicated. Right jugular line tip is unchanged. IMPRESSION: 1. Worsening appearance of the lungs as described with tubes and lines as noted above. ET tube slightly low but not significantly changed from previous. Dictated by: Dictated on workstation # [id number]
[2018-06-05] MEDS: NS IV 1000 ML 1,000 ML IV SCH ×2 (07:41→16:53)
--- NOTE | 2018-06-05 07:45 | Diagnostic Imaging Report ---
INDICATION: Hypoglycemic, UTI EXAMINATION: Chest 06/05/2018 COMPARISON: 06/04/2018 FINDINGS: Heart stable, pulmonary vasculature is congested. Feeding tube tip courses beneath the diaphragm with right jugular line and ET tube unchanged. Pulmonary vascular congestion is seen with likely right mid and lower lung infiltrates. Findings of edema throughout both lungs. No effusion or pneumothorax. IMPRESSION: 1. Tubes and lines as described 2. Developing edema with also new infiltrates in the right lung as described. Dictated by: Dictated on workstation # [id number]
[2018-06-05] MEDS ORDERED: LIDOCAINE PF 1% 2 ML AMP INJ ONE (08:06)
[2018-06-05] MEDS ORDERED: NS IV 1000 ML 1,000 ML IV ONE (08:15)
[2018-06-05] MEDS: PANTOPRAZOLE 40 MG (PROTONIX) VIAL IV SCH (08:31)
[2018-06-05] MEDS: ENOXAPARIN 40 MG/0.4 ML (LOVENOX) SYR SC SCH ×2 (08:31→21:41)
[2018-06-05] MEDS: FLUCONAZOLE 200 MG/100 ML 50 ML, EMPTY IV BAG (PVC) 1 EA IV SCH ×2 (08:32)
[2018-06-05 09:17] LABS: ABG BASE EXCESS -4.5 MMOL/L (-2.5-2.5); ABG OXYGEN SATURATION 99 % (94-100); ABG PCO2 34 MMHG (35-45); ABG PH 7.38 (7.37-7.43); ABG PO2 115 MMHG (79-93); ABG TCO2 20.9 MMOL/L (21.0-31.0)
[2018-06-05 09:19] LABS: ALLENS TEST YES-POS; INSPIRED O2 30%; PATIENT TEMP 97.6; VENTILATOR YES
--- NOTE | 2018-06-05 10:45 | NUR ---
Pastoral Care Visit.
[2018-06-05] MEDS ORDERED: TROUGH ORDER-PHARMACY XX NR (12:00)
--- NOTE | 2018-06-05 12:50 | NUR ---
CALLED LAB DUE TO VANC TROUGH SCHEDULED FOR 12:00 BEING DRAWN AT 03:25 RESULTING IN A CRITICAL HIGH LEVEL OF 40.2 - LAB WILL REDRAW NOW FOR NEW LEVEL
--- NOTE | 2018-06-05 13:46 | NUR ---
VANCOMYCIN DOSING VANC TROUGH 27.5 - HOLD DOSE AND RECHECK LEVEL IN AM
--- NOTE | 2018-06-05 14:12 | Progress Note (SOAP) ---
Subjective Date Seen by a Provider: Jun 05, 2018 Time Seen by a Provider: 12:30 Subjective/Events-last exam Fwup respiratory failure, hypoxic encephalopathy, UTI, sepsis, history of narcotic abuse. Had bronchoscopy this morning and had lots of thick secretions with mucous plugging. Is on CPAP mode on ventilator and has been opening eyes and following some commands. Focused Exam Lactate Level 06/03/18 14:15: Lactic Acid Level 1.07 Objective Exam Vital Signs Date Time Temp Pulse Resp B/P (MAP) Pulse Ox O2 Delivery O2 Flow Rate FiO2 06/05/18 13:36 84 16 100 30 06/05/18 11:13 89 14 100 30 06/05/18 11:00 77 18 126/89 (101) 100 Mechanical Ventilator 30.00 06/05/18 10:00 85 17 131/89 (103) 100 Mechanical Ventilator 30.00 06/05/18 09:48 88 16 100 30 06/05/18 09:00 75 16 132/86 (101) 100 Mechanical Ventilator 30.00 06/05/18 08:33 73 17 100 30 06/05/18 08:00 82 15 124/80 (95) 100 Mechanical Ventilator 30.00 06/05/18 08:00 Mechanical Ventilator 30 06/05/18 07:00 76 23 126/81 (96) 96 Mechanical Ventilator 30.00 06/05/18 07:00 77 06/05/18 06:40 72 20 95 30 06/05/18 06:05 99.8 72 20 122/84 95 Mechanical Ventilator 30.00 06/05/18 06:00 65 15 122/86 (98) 100 Mechanical Ventilator 30.00 06/05/18 05:00 65 17 100/70 (80) 99 Mechanical Ventilator 30.00 06/05/18 04:46 99.8 67 20 88/57 99 Mechanical Ventilator 80.00 06/05/18 04:00 Mechanical Ventilator 30 06/05/18 04:00 98.5 06/05/18 04:00 66 18 94/60 (71) 99 Mechanical Ventilator 30.00 06/05/18 03:44 67 20 99 30 06/05/18 03:00 63 18 91/54 (66) 99 Mechanical Ventilator 30.00 06/05/18 02:00 75 19 103/62 (76) 98 Mechanical Ventilator 30.00 12/28/18 01:59 73 19 98 30 06/05/18 01:00 82 18 100/60 (73) 98 Mechanical Ventilator 30.00 06/05/18 01:00 82 06/05/18 00:34 80 19 97 30 06/05/18 00:00 99.8 06/05/18 00:00 Mechanical Ventilator 30 06/05/18 00:00 80 18 100/57 (71) 97 Mechanical Ventilator 30.00 06/04/18 23:00 96 20 107/64 (78) 97 Mechanical Ventilator 30.00 06/04/18 22:00 100 21 124/69 (87) 97 Mechanical Ventilator 30.00 06/04/18 21:46 113 24 98 30 06/04/18 21:45 99.8 96 20 107/64 97 Mechanical Ventilator 80.00 06/04/18 21:00 101 20 124/74 (91) 97 Mechanical Ventilator 30.00 06/04/18 20:34 98 21 97 30 06/04/18 20:00 105 22 130/84 (99) 98 Mechanical Ventilator 30.00 06/04/18 20:00 99.6 06/04/18 20:00 Mechanical Ventilator 30 06/04/18 19:00 108 06/04/18 19:00 108 18 129/77 (94) 97 Mechanical Ventilator 30.00 06/04/18 18:27 110 30 97 30 06/04/18 18:00 99 22 110/70 (83) 96 Mechanical Ventilator 30.00 06/04/18 17:00 98 19 121/79 (93) 95 Mechanical Ventilator 30.00 06/04/18 16:00 93 23 132/82 (99) 97 Mechanical Ventilator 30.00 06/04/18 16:00 99.0 06/04/18 16:00 Mechanical Ventilator 30 06/04/18 15:00 104 37 147/76 (99) 98 Mechanical Ventilator 30.00 06/04/18 14:51 98 25 97 30 I & O 06/05/18 07:00 Intake Total 4540 ml Output Total 1750 ml Balance 2790 ml Capillary Refill : Less Than 3 Seconds General Appearance: Other (still on vent) Neck: Supple Respiratory: Lungs Clear, Decreased Breath Sounds Cardiovascular: Regular Rate, Rhythm Gastrointestinal: normal bowel sounds, soft Extremity: Non Tender, No Calf Tenderness, No Pedal Edema Neurologic/Psychiatric: Other (on ventilator--opens eyes and moving extremities but not following commands for me) Skin: Warm/Dry Results Lab Laboratory Tests 06/04/18 14:43: Blood Gas Puncture Site R RADIAL, Blood Gas Patient Temperature 99.0, Arterial Blood pH 7.40, Arterial Blood Partial Pressure CO2 34L, Arterial Blood Partial Pressure O2 114H, Arterial Blood HCO3 21L, Arterial Blood Total CO2 21.7, Arterial Blood Oxygen Saturation 99, Arterial Blood Base Excess -3.3L, Dave Test YES-POS, Blood Gas Ventilator Setting YES, Blood Gas Inspired Oxygen 30% 06/04/18 15:29: Glucometer 186H 06/04/18 20:19: Glucometer 202H 06/05/18 00:06: Glucometer 206H 06/05/18 03:25: White Blood Count 8.5, Red Blood Count 3.25L, Hemoglobin 9.2L, Hematocrit 28L, Mean Corpuscular Volume 87, Mean Corpuscular Hemoglobin 28, Mean Corpuscular Hemoglobin Concent 33, Red Cell Distribution Width 14.6H, Platelet Count 210, Mean Platelet Volume 10.1, Neutrophils (%) (Auto) 76H, Lymphocytes (%) (Auto) 17 , Monocytes (%) (Auto) 7, Eosinophils (%) (Auto) 0, Basophils (%) (Auto) 0, Neutrophils # (Auto) 6.4, Lymphocytes # (Auto) 1.4, Monocytes # (Auto) 0.6, Eosinophils # (Auto) 0.0, Basophils # (Auto) 0.0, Sodium Level 137, Potassium Level 3.8, Chloride Level 108H, Carbon Dioxide Level 20L, Anion Gap 9, Blood Urea Nitrogen 11, Creatinine 0.96, Estimat Glomerular Filtration Rate > 60, BUN/ Creatinine Ratio 11, Glucose Level 147H, Calcium Level 7.7L, Phosphorus Level 2.8, Magnesium Level 1.6L 06/05/18 03:26: Glucometer 157H 06/05/18 06:30: Blood Gas Puncture Site LEFT BRACHIAL, Blood Gas Patient Temperature 99.2, Arterial Blood pH 7.38, Arterial Blood Partial Pressure CO2 37, Arterial Blood Partial Pressure O2 115H, Arterial Blood HCO3 21L, Arterial Blood Total CO2 22.0 , Arterial Blood Oxygen Saturation 99, Arterial Blood Base Excess -3.3L, Dave Test NA, Blood Gas Ventilator Setting YES, Blood Gas Inspired Oxygen 50% 06/05/18 08:29: Glucometer 236H 06/05/18 09:09: Blood Gas Puncture Site RRAD, Blood Gas Patient Temperature 97.6, Arterial Blood pH 7.38, Arterial Blood Partial Pressure CO2 34L, Arterial Blood Partial Pressure O2 115H, Arterial Blood HCO3 20L, Arterial Blood Total CO2 20.9L, Arterial Blood Oxygen Saturation 99, Arterial Blood Base Excess -4.5L, Dave Test YES-POS, Blood Gas Ventilator Setting YES, Blood Gas Inspired Oxygen 30% 06/05/18 12:22: Glucometer 185H 06/05/18 13:00: Vancomycin Level Trough 27.5*H Microbiology 06/03/18 Blood Culture - Preliminary, Resulted No growth 06/03/18 Urine Culture - Final, Complete Lactobacillus jensenii YEAST Assessment/Plan Assessment/Plan Assess & Plan/Chief Complaint 1. Acute Respiratory Failure with concern for aspiration--still on ventilator but on CPAP mode so hoping to extubate by tomorrow per pulmonology, bronchoscopy done this AM with lots of secretions suctioned out 2. Hypoglycemic encephalopathy--BS normalized 3. UTI--lactobacillus and yeast on uring culture--on diflucan 4. Sepsis with staph aureus--continue Vanc and zosyn and await bronchoscopy cultures 5. Long discussion with the family and that things look better today--will hopefully be able to wean off ventilator by tomorrow or end of weekend Clinical Quality Measures Admission Status Admission Dx 1. Hypoglycemia with Encephalopathy--admit and monitor BS and mental status 2. Acute Respiratory Failure with respiratory acidosis due to Encephalopathy-- sedated and intubated on ventilator 3. UTI--rocephin started 4. History of narcotic abuse and kratom abuse--add drug screen to urine done on admit DVT/VTE Risk/Contraindication: Risk Factor Score Per Nursin RFS Level Per Nursing on Admit: 4+=Very High MIRELA LYLE DO Jun 05, 2018 14:12
[2018-06-05 16:03] LABS: ABG BASE EXCESS -3.1 MMOL/L (-2.5-2.5); ABG OXYGEN SATURATION 99 % (94-100); ABG PCO2 31 MMHG (35-45); ABG PH 7.43 (7.37-7.43); ABG PO2 104 MMHG (79-93); ABG TCO2 21.6 MMOL/L (21.0-31.0); ALLENS TEST YES-POS; INSPIRED O2 30%; VENTILATOR YES
[2018-06-05 16:04] LABS: PATIENT TEMP 97.6
--- NOTE | 2018-06-05 20:00 | NUR ---
timeline note 194- PT TO CT FOR SCAN OF HEAD AND CHEST PER BED WITH THIS RN AND BELLY ROLLER PRESENT 2004-PT UNABLE TO HOLD STILL FOR SCAN, EICU NOTIFIED OF NEED FOR SOMETHING TO HELP WITH GETTING THE SCANS DONE 2009 ATIVAN 2 MG GIVEN IV 2029 PT BACK TO ROOM
[2018-06-05] MEDS ORDERED: LORazepam INJ 2 MG/ML (ATIVAN) VIAL ONE (20:05)
[2018-06-05] MEDS ORDERED: NS 100 ML (IVPB) BAG IV ONE (20:45)
[2018-06-05] MEDS ORDERED: RECEIVED CONTRAST (Hold Metformin) IV SCH (20:45)
[2018-06-05] MEDS ORDERED: IOHEXOL 350 MG/ML 100 ML (OMNIPAQUE 350) VIAL IV ONE (20:45)
--- NOTE | 2018-06-05 20:54 | Diagnostic Imaging Report ---
PROCEDURE: CT head with and without contrast. TECHNIQUE: Multiple contiguous axial images were obtained through the brain before and after the administration of intravenous contrast. INDICATION: Altered mental status, extubated earlier in the day, not following directions. CORRELATION STUDY: 06/03/2018. FINDINGS: The ventricles and sulci appearing unremarkable. No midline shift or mass effect. There is no abnormal areas of decreased attenuation to suggest edema. No intracranial hemorrhage. On postcontrast imaging, there is no suggestion for abnormal intracranial enhancement. There is rather significant opacification of the majority of the left maxillary sinus. Small air-fluid level sphenoid sinus. Few opacified ethmoid air cells also present. IMPRESSION: 1. Negative for acute intracranial abnormality. No abnormal areas of intracranial enhancement. 2. Sinusitis. Dictated by: Dictated on workstation # [id number]
[2018-06-05] MEDS: CATHETER FLUSH 10 ML SYR IV PRN (21:01)
--- NOTE | 2018-06-05 21:08 | Diagnostic Imaging Report ---
PROCEDURE: CT chest with and without contrast. TECHNIQUE: Multiple contiguous axial images were obtained through the chest before and after administration of intravenous contrast. INDICATION: Altered mental status, extubated earlier in the day. Not following directions. Correlation study: None FINDINGS: Examination compromised with patient motion artifact. The heart size is borderline enlarged. No pericardial effusion. Thoracic aorta unremarkable. There is prominent precarinal lymph node short axis dimension at 12 mm. Dori-azygos lymph node short axis 11 mm. Additional mildly prominent mediastinal lymph nodes are noted. There is also prominent bilateral hilar lymph nodes. On the right, short axis dimension at 12 mm. There is presence of small to moderate bilateral pleural effusions layering dependently. Rather extensive diffuse groundglass opacities throughout both lung qureshi are noted. Slightly more focal atelectasis and/or infiltrate lung bases, left greater than right. Central line tip within the confluence of the innominate vein and superior vena cava. Visualized portion of the upper abdomen demonstrates likely some edema and/or fatty attenuation liver parenchyma. Cholecystectomy clips are present. IMPRESSION: 1. Rather pronounced predominantly groundglass type opacities throughout both lung qureshi which are nonspecific. This could be attributed to edema versus infectious or inflammatory process. Slightly more focal consolidation about the lung bases could be reflective of atelectasis or more focal consolidation or even perhaps aspiration. Small bilateral pleural effusions dependently. 2. Borderline prominent mediastinal and hilar lymph nodes likely reactive given the overall findings. Dictated by: Dictated on workstation # [id number]
[2018-06-05] MEDS ORDERED: HALOPERIDOL 5 MG/ML (HALDOL) AMP IV PRN (21:30)
[2018-06-05] MEDS ORDERED: LORazepam INJ 2 MG/ML (ATIVAN) VIAL IV ONE (21:30)
--- NOTE | 2018-06-05 22:00 | NUR ---
2100 PT NOT BACK TO ROOM UNTIL 2100 AFTER SCANS COMPLETE. I ATTEMPTED TO CALL DR BEASLEY FOR ORDER FOR SOMETHING FOR SCAN BUT HE WOULDN'T ANSWER HIS PHONE, EICU NOTIFIED AND ORDERS RECEIVED.
[2018-06-06] VITALS (28 sets, daily range): BP systolic 103–134; BP diastolic 54–98
[2018-06-06] MEDS: RT-ALBUTEROL/IPRATROPIUM 3 ML (DUONEB) VIAL INH SCH ×6 (01:16→21:45)
[2018-06-06] MEDS: inSUlin ASPART (NovoLOG) 1 UNIT/0.01 ML (CHARGE PER UNIT) SC SCH ×6 (01:18→19:54)
[2018-06-06 03:51] LABS: BASOPHILS % (AUTO) 0 % (0-10); EOSINOPHILS % (AUTO) 1 % (0-10); HEMATOCRIT 28 % (35-52); HEMOGLOBIN 9.4 G/DL (11.5-16.0); LYMPHOCYTES # (AUTO) 1.1 X 10^3 (1.0-4.0); LYMPHOCYTES % (AUTO) 13 % (12-44); MEAN CORPUSCULAR HEMOGLOBIN 29 PG (25-34); MEAN CORPUSCULAR HGB CONC 33 G/DL (32-36); MEAN CORPUSCULAR VOLUME 88 FL (80-99); MEAN PLATELET VOLUME 9.8 FL (7.4-10.4); MONOCYTES # (AUTO) 0.4 X 10^3 (0.0-1.0); MONOCYTES % (AUTO) 5 % (0-12); NEUTROPHILS # (AUTO) 6.7 X 10^3 (1.8-7.8); NEUTROPHILS % (AUTO) 81 % (42-75); PLATELET COUNT 225 10^3/uL (130-400); RED BLOOD COUNT 3.22 10^6/uL (4.35-5.85); RED CELL DISTRIBUTION WIDTH 14.6 % (10.0-14.5); WHITE BLOOD COUNT 8.2 10^3/uL (4.3-11.0)
[2018-06-06 04:12] LABS: CALCIUM 8.2 MG/DL (8.5-10.1); CREATININE SERUM 1.03 MG/DL (0.60-1.30); MAGNESIUM 1.7 MG/DL (1.8-2.4); PHOSPHORUS 3.2 MG/DL (2.3-4.7); POTASSIUM 3.6 MMOL/L (3.6-5.0)
[2018-06-06] MEDS: NS IV 1000 ML 1,000 ML IV SCH (04:15)
[2018-06-06] MEDS: PIPERACILLIN SODIUM/TAZOBACTAM 4.5 GM in NS (IVPB) 100 ML IV SCH ×3 (04:16→19:54)
[2018-06-06] MEDS: POTASSIUM CL 10MEQ/50ML IVPB 50 ML IV SCH ×3 (04:47→04:59)
[2018-06-06] MEDS: MAGNESIUM 1 GM/100 ML IVPB 100 ML IV SCH ×3 (04:48→04:59)
[2018-06-06] MEDS: KCL 20 MEQ TAB (K-DUR) PO SCH (04:53)
--- NOTE | 2018-06-06 06:34 | Pulmonary Progress Note ---
Subjective Time Seen by a Provider: 06:47 Subjective/Events-last exam PT does not follow all commands. Pt is only on RA. Sepsis Event Evaluation Height, Weight, BMI Height: 5'2.00" Weight: 229lbs. 0.0oz. 103.859198xg; 47.6 BMI Method:Estimated Focused Exam Lactate Level 06/03/18 14:15: Lactic Acid Level 1.07 Exam Exam Vital Signs Date Time Temp Pulse Resp B/P (MAP) Pulse Ox O2 Delivery O2 Flow Rate FiO2 06/06/18 06:24 96 Room Air 06/06/18 06:00 103 18 124/88 (100) 96 Room Air 06/06/18 05:00 101 21 127/81 (96) 96 Room Air 06/06/18 04:00 97.8 06/06/18 04:00 97 Room Air 06/06/18 04:00 95 32 116/96 (103) 96 Room Air 06/06/18 03:58 100 14 98 Room Air 06/06/18 03:00 98 25 118/76 (90) 99 NIV Bilevel 21.00 06/06/18 02:00 98 18 132/84 (100) 98 NIV Bilevel 21.00 06/06/18 01:50 105 20 100 NIV Bilevel 21.00 06/06/18 01:17 89 17 100 25.00 06/06/18 01:00 102 06/06/18 01:00 102 32 122/85 (97) 100 NIV Bilevel 25.00 06/06/18 00:00 NIV Bilevel 30 06/06/18 00:00 98.0 06/06/18 00:00 103 21 126/89 (101) 100 NIV Bilevel 25.00 06/05/18 23:40 104 23 100 30.00 06/05/18 23:40 105 20 100 NIV Bilevel 25.00 06/05/18 23:30 103 19 131/75 (93) 100 NIV Bilevel 30.00 06/05/18 23:00 101 19 138/93 (108) 100 NIV Bilevel 30.00 06/05/18 22:30 101 22 137/77 (97) 100 NIV Bilevel 30.00 06/05/18 22:00 107 24 143/102 (116) 100 NIV Bilevel 30.00 06/05/18 21:30 94 21 131/82 (98) 100 NIV Bilevel 30.00 06/05/18 21:12 85 25 91 NIV Bilevel 30.00 06/05/18 21:12 91 21 99 30.00 06/05/18 21:07 98 23 150/97 (114) 100 Nasal Cannula 5.00 06/05/18 21:00 105 168/101 (123) 92 Nasal Cannula 5.00 06/05/18 20:52 108 32 90 Nasal Cannula 5.00 06/05/18 20:38 103 25 151/105 (120) 86 Nasal Cannula 2.00 06/05/18 20:35 99 170/108 (128) Nasal Cannula 2.00 06/05/18 20:00 Nasal Cannula 1.00 06/05/18 20:00 98.1 06/05/18 19:30 96 28 150/101 (117) Nasal Cannula 2.00 06/05/18 19:00 97 12 138/128 (131) 100 Nasal Cannula 2.00 06/05/18 19:00 97 06/05/18 18:41 100 Nasal Cannula 2.00 06/05/18 18:00 93 7 136/86 (103) 100 Nasal Cannula 2.00 06/05/18 17:00 93 7 150/96 (114) 100 Nasal Cannula 2.00 06/05/18 16:25 Nasal Cannula 2.00 06/05/18 16:00 92 20 146/94 (111) 99 Mechanical Ventilator 30.00 06/05/18 16:00 Nasal Cannula 3.00 06/05/18 15:00 79 17 149/102 (118) 100 Mechanical Ventilator 30.00 06/05/18 14:00 89 17 149/102 (118) 100 Mechanical Ventilator 30.00 06/05/18 13:36 84 16 100 30 06/05/18 13:11 88 06/05/18 13:00 77 17 152/105 (121) 100 Mechanical Ventilator 30.00 06/05/18 12:00 Mechanical Ventilator 30 06/05/18 12:00 85 15 152/105 (121) 100 Mechanical Ventilator 30.00 06/05/18 11:13 89 14 100 30 06/05/18 11:00 77 18 126/89 (101) 100 Mechanical Ventilator 30.00 06/05/18 10:00 85 17 131/89 (103) 100 Mechanical Ventilator 30.00 06/05/18 09:48 88 16 100 30 06/05/18 09:00 75 16 132/86 (101) 100 Mechanical Ventilator 30.00 06/05/18 08:33 73 17 100 30 06/05/18 08:00 82 15 124/80 (95) 100 Mechanical Ventilator 30.00 06/05/18 08:00 Mechanical Ventilator 30 06/05/18 07:00 76 23 126/81 (96) 96 Mechanical Ventilator 30.00 06/05/18 07:00 77 06/05/18 06:40 72 20 95 30 I & O 06/06/18 07:00 Intake Total 152 ml Output Total 2410 ml Balance -2258 ml Height & Weight Height: 5'2.00" Weight: 229lbs. 0.0oz. 103.542313eh; 47.6 BMI Method:Estimated General Appearance: No Apparent Distress HEENT: Other (pupils equal bilat and sluggish) Neck: Supple Respiratory: Lungs Clear, Decreased Breath Sounds Cardiovascular: Regular Rate, Rhythm Capillary Refill: Less Than 3 Seconds Gastrointestinal: normal bowel sounds, soft Extremity: Non Tender, No Calf Tenderness, No Pedal Edema Neurologic/Psychiatric: Other (moves all extremities. eyes open however pt confused. ) Skin: Warm/Dry Lymphatic: No Adenopathy Results Lab Laboratory Tests 06/05/18 03:25 06/06/18 03:40 Assessment/Plan Assessment/Plan Acute respiratory failure with probable aspiration -Copious amounts of secretions per RT. -S/p bronchoscopy -PT is doing well off vent and is on RA Metabolic encephalopathy secondary to hypoglycemia -repeat CT of head with contrast is negative -Repeat ABG -Check TSH, ammonia -Aspiration precautions Metabolic acidosis -Give 2amps of bicarb S. Aureus bacteremia -Continue vancomycin Acute severe hypoglycemia - improved -monitor Sepsis with UTI and aspiration pneumoia -Continue vancomycin and zosyn -Pt is also on Diflucan HX of narcotic abuse and kratom abuse WHITNEY BEASLEY DO Jun 06, 2018 06:33
[2018-06-06] MEDS ORDERED: SODIUM PHOSPHATE INJ 30 MM in NS (IVPB) 250 ML IV ONE (06:45)
[2018-06-06] MEDS ORDERED: SODIUM BICARB 8.4% 50 MEQ/50 ML (ABBOTT) SYR IV ONE (06:45)
[2018-06-06 06:55] LABS: ABG BASE EXCESS -5.3 MMOL/L (-2.5-2.5); ABG OXYGEN SATURATION 93 % (94-100); ABG PCO2 26 MMHG (35-45); ABG PH 7.45 (7.37-7.43); ABG PO2 63 MMHG (79-93); ABG TCO2 18.9 MMOL/L (21.0-31.0)
[2018-06-06 06:58] LABS: ALLENS TEST YES-POS; INSPIRED O2 ROOM AIR
[2018-06-06 06:59] LABS: PATIENT TEMP 97.6; VENTILATOR NO
--- NOTE | 2018-06-06 07:47 | Diagnostic Imaging Report ---
Indication: Hyperglycemia. Urinary tract infection. Upright portable chest shows normal heart size. There is mild vascular congestion. No alveolar infiltrates are seen. There is no effusion or pneumothorax. The ET tube and OG tube have been removed since 06/05/2018. Impression: Interval removal of the ET tube and OG tube with slight improved aeration of the lung since the prior exam. Dictated by: Dictated on workstation # [id number]
[2018-06-06 07:57] LABS: ALBUMIN 2.8 GM/DL (3.2-4.5); BILIRUBIN,TOTAL 0.9 MG/DL (0.1-1.0); CALCIUM 8.2 MG/DL (8.5-10.1); CREATININE SERUM 1.01 MG/DL (0.60-1.30); POTASSIUM 3.7 MMOL/L (3.6-5.0); TOTAL PROTEIN 6.3 GM/DL (6.4-8.2)
[2018-06-06] MEDS: ENOXAPARIN 40 MG/0.4 ML (LOVENOX) SYR SC SCH ×2 (09:03→19:54)
[2018-06-06] MEDS: PANTOPRAZOLE 40 MG (PROTONIX) VIAL IV SCH (09:16)
[2018-06-06] MEDS: FLUCONAZOLE 200 MG/100 ML 50 ML, EMPTY IV BAG (PVC) 1 EA IV SCH ×2 (10:50)
--- NOTE | 2018-06-06 12:20 | Progress Note-Hospitalist ---
Subjective HPI/CC On Admission Date Seen by Provider: Jun 06, 2018 Time Seen by Provider: 11:15 Subjective/Events-last exam Patient extubated Remains on BiPAP Responsive at times but overall long recovery is expected Unsure of his neurological status that remains No issues at this current time Review of Systems General: Fatigue Focused Exam Lactate Level 06/03/18 14:15: Lactic Acid Level 1.07 Objective Exam Vital Signs Vital Signs Date Time Temp Pulse Resp B/P (MAP) Pulse Ox O2 Delivery O2 Flow Rate FiO2 06/06/18 11:00 96 25 114/75 (88) 94 NIV Bilevel 21.00 06/06/18 07:15 99.1 06/06/18 00:00 30 Capillary Refill : Less Than 3 Seconds General Appearance: No Apparent Distress, WD/WN, Chronically ill, Obese Respiratory: Chest Non Tender, Normal Breath Sounds, No Accessory Muscle Use, No Respiratory Distress, Decreased Breath Sounds Cardiovascular: Regular Rate, Rhythm, No Edema, No Gallop, No JVD, No Murmur, Normal Peripheral Pulses Neurologic/Psychiatric: Other (sleeping) Results/Procedures Lab Laboratory Tests 06/06/18 03:40 06/06/18 07:30 Patient resulted labs reviewed. Assessment/Plan Assessment and Plan Assess & Plan/Chief Complaint Assessment: 1. Hypoglycemia with Encephalopathy 2. Acute Respiratory Failure with respiratory acidosis due to Encephalopathy s/ p extubation 3. UTI--on abx 4. History of narcotic abuse and kratom abuse Plan: Monitor for any recovery Diagnosis/Problems Diagnosis/Problems (1) Neurocognitive deficits Status: Acute (2) Hypoglycemia Status: Resolved Resolution Date/Time: 06/06/18 @ 12:44 (3) Acute respiratory failure Status: Acute Qualifiers: Respiratory failure complication: unspecified whether with hypoxia or hypercapnia Qualified Codes: J96.00 - Acute respiratory failure, unspecified whether with hypoxia or hypercapnia (4) Altered mental status Status: Acute Qualifiers: Altered mental status type: unspecified Qualified Codes: R41.82 - Altered mental status, unspecified Clinical Quality Measures DVT/VTE Risk/Contraindication: Risk Factor Score Per Nursin RFS Level Per Nursing on Admit: 4+=Very High SOHAIL HUBER DO Jun 06, 2018 12:20
[2018-06-06] MEDS: morphine INJ 4 MG/ML 1 ML (VIAL/SYRINGE) IVP PRN ×2 (15:10→20:11)
[2018-06-06] MEDS: VANCOMYCIN INJECTION 1,500 MG in NS IV 500 ML 500 ML IV SCH (16:19)
[2018-06-07] VITALS (11 sets, daily range): BP systolic 89–153; BP diastolic 74–99
[2018-06-07] MEDS: morphine INJ 4 MG/ML 1 ML (VIAL/SYRINGE) IVP PRN (01:39)
[2018-06-07] MEDS: RT-ALBUTEROL/IPRATROPIUM 3 ML (DUONEB) VIAL INH SCH ×4 (01:55→20:38)
[2018-06-07 03:42] LABS: BASOPHILS % (AUTO) 0 % (0-10); EOSINOPHILS # (AUTO) 0.1 10^3/uL (0.0-0.3); EOSINOPHILS % (AUTO) 1 % (0-10); HEMATOCRIT 29 % (35-52); HEMOGLOBIN 9.1 G/DL (11.5-16.0); LYMPHOCYTES # (AUTO) 1.3 X 10^3 (1.0-4.0); LYMPHOCYTES % (AUTO) 22 % (12-44); MEAN CORPUSCULAR HEMOGLOBIN 28 PG (25-34); MEAN CORPUSCULAR HGB CONC 32 G/DL (32-36); MEAN CORPUSCULAR VOLUME 88 FL (80-99); MEAN PLATELET VOLUME 9.8 FL (7.4-10.4); MONOCYTES # (AUTO) 0.4 X 10^3 (0.0-1.0); MONOCYTES % (AUTO) 6 % (0-12); NEUTROPHILS # (AUTO) 4.3 X 10^3 (1.8-7.8); NEUTROPHILS % (AUTO) 70 % (42-75); PLATELET COUNT 218 10^3/uL (130-400); RED BLOOD COUNT 3.23 10^6/uL (4.35-5.85); RED CELL DISTRIBUTION WIDTH 14.3 % (10.0-14.5); WHITE BLOOD COUNT 6.1 10^3/uL (4.3-11.0)
[2018-06-07 04:00] LABS: CALCIUM 8.1 MG/DL (8.5-10.1); CREATININE SERUM 0.98 MG/DL (0.60-1.30); MAGNESIUM 1.8 MG/DL (1.8-2.4); PHOSPHORUS 3.7 MG/DL (2.3-4.7); POTASSIUM 3.4 MMOL/L (3.6-5.0)
[2018-06-07] MEDS: PIPERACILLIN SODIUM/TAZOBACTAM 4.5 GM in NS (IVPB) 100 ML IV SCH (04:28)
[2018-06-07] MEDS: inSUlin ASPART (NovoLOG) 1 UNIT/0.01 ML (CHARGE PER UNIT) SC SCH ×6 (04:29→21:11)
--- NOTE | 2018-06-07 05:25 | Pulmonary Progress Note ---
Subjective Time Seen by a Provider: 05:32 Subjective/Events-last exam Pt still confused and does not follow all commands. Sepsis Event Evaluation Height, Weight, BMI Height: 5'2.00" Weight: 229lbs. 0.0oz. 103.093861ch; 47.6 BMI Method:Estimated Exam Exam Vital Signs Date Time Temp Pulse Resp B/P (MAP) Pulse Ox O2 Delivery O2 Flow Rate FiO2 06/07/18 05:00 86 13 139/99 (112) 100 NIV Bilevel 21.00 06/07/18 04:51 100 17 95 21.00 06/07/18 04:00 89 12 125/74 (91) 97 NIV Bilevel 21.00 06/07/18 04:00 98.2 06/07/18 04:00 100 NIV Bilevel 21 06/07/18 03:00 88 14 130/82 (98) 98 NIV Bilevel 21.00 06/07/18 02:00 85 15 119/74 (89) 98 NIV Bilevel 21.00 06/07/18 01:56 95 16 95 21.00 06/07/18 01:00 93 13 130/77 (94) 99 NIV Bilevel 21.00 06/07/18 01:00 96 06/07/18 00:00 100 NIV Bilevel 21 06/07/18 00:00 97.0 06/07/18 00:00 81 14 89/77 (81) 95 NIV Bilevel 21.00 06/06/18 23:00 78 20 116/77 (90) 97 NIV Bilevel 21.00 06/06/18 22:00 81 16 108/66 (80) 99 NIV Bilevel 21.00 06/06/18 21:46 98 16 96 21.00 06/06/18 21:00 84 17 103/62 (76) 96 NIV Bilevel 21.00 06/06/18 20:00 98.6 NIV Bilevel 21.00 06/06/18 20:00 101 17 107/70 (82) 100 NIV Bilevel 21.00 06/06/18 20:00 100 NIV Bilevel 21 06/06/18 19:00 84 06/06/18 19:00 80 21 115/75 (88) 97 NIV Bilevel 21.00 06/06/18 18:53 97 17 99 21.00 12/29/18 18:00 101 15 115/84 (94) 99 NIV Bilevel 21.00 06/06/18 17:00 91 12 121/80 (94) 98 NIV Bilevel 21.00 06/06/18 16:15 90 97 06/06/18 16:00 88 15 106/66 (79) 97 NIV Bilevel 21.00 06/06/18 16:00 93 Room Air 06/06/18 15:48 90 20 100 21.00 06/06/18 15:00 105 18 123/58 (79) 97 NIV Bilevel 21.00 06/06/18 14:26 97.2 98 23 106/54 (71) 93 NIV Bilevel 21.00 06/06/18 14:02 89 17 96 21.00 06/06/18 14:00 99 27 106/54 (71) 97 NIV Bilevel 21.00 06/06/18 13:07 84 06/06/18 13:00 89 22 120/88 (99) 97 NIV Bilevel 21.00 06/06/18 12:00 93 Room Air 06/06/18 12:00 105 18 118/73 (88) 96 NIV Bilevel 21.00 06/06/18 11:00 96 25 114/75 (88) 94 NIV Bilevel 21.00 06/06/18 10:08 89 17 95 21.00 06/06/18 10:00 105 33 122/81 (95) 98 Room Air 06/06/18 09:00 112 32 121/98 (106) 92 Room Air 06/06/18 08:00 104 35 124/83 (97) 91 Room Air 06/06/18 07:39 93 Room Air 06/06/18 07:15 99.1 106 22 134/89 (104) 93 Room Air 06/06/18 07:14 100 06/06/18 07:00 101 33 94 Room Air 06/06/18 06:24 96 Room Air 06/06/18 06:00 103 18 124/88 (100) 96 Room Air I & O 06/07/18 07:00 Intake Total 1260 ml Output Total 2850 ml Balance -1590 ml Height & Weight Height: 5'2.00" Weight: 229lbs. 0.0oz. 103.404611bo; 47.6 BMI Method:Estimated General Appearance: No Apparent Distress, WD/WN, Chronically ill, Obese HEENT: Other (pupils equal bilat and sluggish) Neck: Supple Respiratory: Chest Non Tender, Normal Breath Sounds, No Accessory Muscle Use, No Respiratory Distress, Decreased Breath Sounds Cardiovascular: Regular Rate, Rhythm, No Edema, No Gallop, No JVD, No Murmur, Normal Peripheral Pulses Capillary Refill: Less Than 3 Seconds Gastrointestinal: normal bowel sounds, soft Extremity: Non Tender, No Calf Tenderness, No Pedal Edema Neurologic/Psychiatric: Other (confused does not follow all commands. ) Skin: Warm/Dry Lymphatic: No Adenopathy Results Lab Laboratory Tests 06/06/18 03:40 06/06/18 07:30 06/07/18 03:30 Assessment/Plan Assessment/Plan Acute respiratory failure with Pneumonia -Copious amounts of secretions per RT. -S/p bronchoscopy -PT is doing well off vent and is on RA MRSA bacteremia -Continue vancomycin Metabolic encephalopathy secondary to hypoglycemia -repeat CT of head with contrast is negative -Aspiration precautions Sepsis with UTI and aspiration pneumoia -Continue vancomycin and zosyn -Pt is also on Diflucan HX of narcotic abuse and kratom abuse WHITNEY BEASLEY DO Jun 07, 2018 05:25
[2018-06-07] MEDS ORDERED: FUROSEMIDE 40 MG/4 ML INJ (LASIX) IVP ONE (05:30)
--- NOTE | 2018-06-07 05:52 | Diagnostic Imaging Report ---
INDICATION: Neurological event. Urinary tract infection. Hypoglycemia Portable chest shows normal heart size and vascularity. There is patchy airspace disease on the right. No consolidations are seen. There is no effusion or pneumothorax. There is no significant change from 06/06/2018. IMPRESSION: Stable chest. Dictated by: Dictated on workstation # [id number]
--- NOTE | 2018-06-07 06:00 | NUR ---
DR BEASLEY HERE. CENTRAL LINE REMOVED FROM RIGHT IJ D/T PT PULLING IT PARTIALLY OUT. HL STARTED TO LEFT FOREARM
[2018-06-07] MEDS: POTASSIUM CL 10MEQ/50ML IVPB 50 ML IV SCH ×8 (06:15→11:20)
[2018-06-07 06:57] LABS: BILIRUBIN,URINE NEGATIVE (NEGATIVE); CLARITY,URINE CLEAR; COLOR,URINE YELLOW; GLUCOSE, URINE (UA) 2+ (NEGATIVE); KETONES,URINE 3+ (NEGATIVE); LEUKOCYTE ESTERASE ,URINE 3+ (NEGATIVE); NITRITE,URINE NEGATIVE (NEGATIVE); PH,URINE 6 (5-9); PROTEIN,URINE 3+ (NEGATIVE); UROBILINOGEN,URINE NORMAL (NORMAL)
[2018-06-07 07:06] LABS: BACTERIA,URINE FEW /HPF; RBC,URINE 0-2 /HPF; WBC,URINE >100 /HPF; YEAST,URINE MODERATE /HPF
[2018-06-07 07:17] LABS: AMPHETAMINE SCREEN, URINE NEGATIVE (NEGATIVE); BARBITURATE SCREEN URINE NEGATIVE (NEGATIVE); BENZODIAZEPINES SCREEN URINE POSITIVE (NEGATIVE); CANNABINOID SCREEN, URINE POSITIVE (NEGATIVE); COCAINE SCREEN URINE NEGATIVE (NEGATIVE); METHADONE STAT NEGATIVE (NEGATIVE); METHAMPHETAMINE SCREEN URINE S NEGATIVE (NEGATIVE); OPIATE SCREEN URINE POSITIVE (NEGATIVE); OXYCODONE STAT NEGATIVE (NEGATIVE); PROPOXYPHENE STAT NEGATIVE (NEGATIVE); TRICYCLIC ANTIDEPRESSANTS SCRE NEGATIVE (NEGATIVE)
[2018-06-07] MEDS: ENOXAPARIN 40 MG/0.4 ML (LOVENOX) SYR SC SCH ×2 (08:22→20:00)
[2018-06-07] MEDS: PANTOPRAZOLE 40 MG (PROTONIX) VIAL IV SCH (08:28)
[2018-06-07] MEDS: FLUCONAZOLE 200 MG/100 ML 50 ML, EMPTY IV BAG (PVC) 1 EA IV SCH ×2 (08:28)
--- NOTE | 2018-06-07 10:30 | NUR ---
Pt's sister et 2 friends at bedside
--- NOTE | 2018-06-07 12:12 | NUR ---
Dr. Mercado at bedside et updated on pt
--- NOTE | 2018-06-07 13:04 | Progress Note-Hospitalist ---
Subjective HPI/CC On Admission Date Seen by Provider: Jun 07, 2018 Time Seen by Provider: 11:30 Subjective/Events-last exam With nonpurposeful movements Does not awaken or carry on any type of conversation or open eyes Anoxic brain injury likely will be low recovery potential Ripped out her central line in a nonpurposeful movement Patient essentially comatose Objective Exam Vital Signs Vital Signs Date Time Temp Pulse Resp B/P (MAP) Pulse Ox O2 Delivery O2 Flow Rate FiO2 06/07/18 16:16 92 Room Air 06/07/18 13:26 70 06/07/18 13:00 97.6 16 130/82 (98) 06/07/18 08:00 21.00 06/07/18 08:00 18 Capillary Refill : Less Than 3 Seconds General Appearance: No Apparent Distress, WD/WN, Chronically ill, Obese Respiratory: Chest Non Tender, Lungs Clear, Normal Breath Sounds, No Accessory Muscle Use, No Respiratory Distress Cardiovascular: Regular Rate, Rhythm, No Edema, No Gallop, No JVD, No Murmur, Normal Peripheral Pulses Neurologic/Psychiatric: Other (comatose) Results/Procedures Lab Laboratory Tests 06/07/18 03:30 Patient resulted labs reviewed. Assessment/Plan Assessment and Plan Assess & Plan/Chief Complaint Assessment: 1. Hypoglycemia with Encephalopathy 2. Acute Respiratory Failure with respiratory acidosis due to Encephalopathy s/ p extubation 3. UTI--on abx 4. History of narcotic abuse and kratom abuse Plan: Monitor for any recovery Diagnosis/Problems Diagnosis/Problems (1) Neurocognitive deficits Status: Acute (2) Hypoglycemia Status: Resolved Resolution Date/Time: 06/06/18 @ 12:44 (3) Acute respiratory failure Status: Acute Qualifiers: Respiratory failure complication: unspecified whether with hypoxia or hypercapnia Qualified Codes: J96.00 - Acute respiratory failure, unspecified whether with hypoxia or hypercapnia (4) Altered mental status Status: Acute Qualifiers: Altered mental status type: unspecified Qualified Codes: R41.82 - Altered mental status, unspecified Clinical Quality Measures DVT/VTE Risk/Contraindication: Risk Factor Score Per Nursin RFS Level Per Nursing on Admit: 4+=Very High SOHAIL HUBER DO Jun 07, 2018 13:03
[2018-06-07] MEDS: VANCOMYCIN INJECTION 1,500 MG in NS IV 500 ML 500 ML IV SCH (14:09)
--- NOTE | 2018-06-07 15:00 | NUR ---
This RN to assume patient care
[2018-06-08 00:01] VITALS: BP 146/83
[2018-06-08] MEDS: morphine INJ 4 MG/ML 1 ML (VIAL/SYRINGE) IVP PRN ×4 (00:02→21:15)
[2018-06-08] MEDS: inSUlin ASPART (NovoLOG) 1 UNIT/0.01 ML (CHARGE PER UNIT) SC SCH ×6 (00:06→20:10)
[2018-06-08] MEDS: RT-ALBUTEROL/IPRATROPIUM 3 ML (DUONEB) VIAL INH SCH ×4 (01:06→22:02)
[2018-06-08 03:48] LABS: BASOPHILS % (AUTO) 0 % (0-10); EOSINOPHILS # (AUTO) 0.1 10^3/uL (0.0-0.3); EOSINOPHILS % (AUTO) 1 % (0-10); HEMATOCRIT 32 % (35-52); HEMOGLOBIN 10.3 G/DL (11.5-16.0); LYMPHOCYTES # (AUTO) 1.3 X 10^3 (1.0-4.0); LYMPHOCYTES % (AUTO) 20 % (12-44); MEAN CORPUSCULAR HEMOGLOBIN 29 PG (25-34); MEAN CORPUSCULAR HGB CONC 32 G/DL (32-36); MEAN CORPUSCULAR VOLUME 89 FL (80-99); MEAN PLATELET VOLUME 9.6 FL (7.4-10.4); MONOCYTES # (AUTO) 0.4 X 10^3 (0.0-1.0); MONOCYTES % (AUTO) 6 % (0-12); NEUTROPHILS # (AUTO) 4.8 X 10^3 (1.8-7.8); NEUTROPHILS % (AUTO) 73 % (42-75); PLATELET COUNT 267 10^3/uL (130-400); RED BLOOD COUNT 3.58 10^6/uL (4.35-5.85); RED CELL DISTRIBUTION WIDTH 14.7 % (10.0-14.5); WHITE BLOOD COUNT 6.6 10^3/uL (4.3-11.0)
[2018-06-08 04:10] LABS: CALCIUM 9.2 MG/DL (8.5-10.1); CREATININE SERUM 1.28 MG/DL (0.60-1.30); MAGNESIUM 1.6 MG/DL (1.8-2.4); PHOSPHORUS 3.1 MG/DL (2.3-4.7); POTASSIUM 3.5 MMOL/L (3.6-5.0)
--- NOTE | 2018-06-08 06:37 | Diagnostic Imaging Report ---
INDICATION: Hypoglycemia. COMPARISON: 06/07/2018 FINDINGS: Single frontal radiographic view of the chest was obtained and demonstrate improved aeration. There does appear, however to be mild prominence of pulmonary vasculature on today's study. Cardiac silhouette is stable. There is no large effusion or pneumothorax. Bony structures show no gross acute abnormalities. IMPRESSION: 1. Significant interval improved aeration. 2. Probable mild pulmonary vascular congestion. Dictated by: Dictated on workstation # [id number]
--- NOTE | 2018-06-08 06:38 | Pulmonary Progress Note ---
Sepsis Event Evaluation Height, Weight, BMI Height: 5'2.00" Weight: 224lbs. 0.0oz. 101.311930wf; 47.6 BMI Method:Estimated Exam Exam Vital Signs Date Time Temp Pulse Resp B/P (MAP) Pulse Ox O2 Delivery O2 Flow Rate FiO2 06/08/18 04:10 95 21 95 21.00 06/08/18 01:07 83 06/08/18 01:06 90 25 97 21.00 06/08/18 00:01 98.1 72 19 146/83 (104) 99 NIV Bilevel 06/07/18 22:15 94 25 97 21.00 06/07/18 20:38 93 18 96 21.00 06/07/18 20:30 97.2 72 16 153/91 (111) 97 Room Air 06/07/18 20:00 100 NIV Bilevel 21 06/07/18 19:06 79 06/07/18 16:16 92 Room Air 06/07/18 13:26 70 06/07/18 13:00 97.6 77 16 130/82 (98) 93 Room Air 06/07/18 12:00 97.6 77 16 130/82 (98) 93 Room Air 06/07/18 09:26 83 99 06/07/18 08:26 83 06/07/18 08:00 73 121/75 (90) NIV Bilevel 21.00 06/07/18 08:00 Room Air 18 06/07/18 07:42 97.6 06/07/18 07:00 67 18 96 NIV Bilevel 21.00 06/07/18 06:59 74 I & O 06/08/18 07:00 Intake Total 1015 ml Output Total 3975 ml Balance -2960 ml Height & Weight Height: 5'2.00" Weight: 224lbs. 0.0oz. 101.289630ze; 47.6 BMI Method:Estimated General Appearance: No Apparent Distress, WD/WN, Chronically ill, Obese HEENT: Other (pupils equal bilat and sluggish) Neck: Supple Respiratory: Chest Non Tender, Lungs Clear, Normal Breath Sounds, No Accessory Muscle Use, No Respiratory Distress Cardiovascular: Regular Rate, Rhythm, No Edema, No Gallop, No JVD, No Murmur, Normal Peripheral Pulses Capillary Refill: Less Than 3 Seconds Gastrointestinal: normal bowel sounds, soft Extremity: Non Tender, No Calf Tenderness, No Pedal Edema Neurologic/Psychiatric: Other (comatose) Skin: Warm/Dry Lymphatic: No Adenopathy Results Lab Laboratory Tests 06/06/18 07:30 06/07/18 03:30 06/08/18 03:40 Assessment/Plan Assessment/Plan Acute respiratory failure with Pneumonia - improving -PT is doing well off vent MRSA bacteremia -vancomycin Metabolic encephalopathy secondary to hypoglycemia -repeat CT of head with contrast is negative -Aspiration precautions Sepsis with UTI and aspiration pneumoia -Continue vancomycin and zosyn -Pt is also on Diflucan HX of narcotic abuse and kratom abuse WHITNEY BEASLEY DO Jun 08, 2018 06:38
[2018-06-08 07:30] VITALS: BP 136/74
[2018-06-08] MEDS: ENOXAPARIN 40 MG/0.4 ML (LOVENOX) SYR SC SCH ×2 (08:04→20:10)
[2018-06-08] MEDS: POTASSIUM CL 10MEQ/50ML IVPB 50 ML IV SCH ×6 (08:04→13:42)
[2018-06-08] MEDS: MAGNESIUM 1 GM/100 ML IVPB 100 ML IV SCH ×3 (08:04→10:21)
[2018-06-08] MEDS: PANTOPRAZOLE 40 MG (PROTONIX) VIAL IV SCH (08:08)
--- NOTE | 2018-06-08 10:57 | Physical Therapy Evaluation ---
PT Evaluation-General Medical Diagnosis Admission Date Jun 03, 2018 at 16:14 Medical Diagnosis: hypoglycemia Onset Date: Jun 03, 2018 Therapy Diagnosis Therapy Diagnosis: severe debility Height/Weight Height (Feet): 5 Height (Inches): 2.00 Weight (Pounds): 224 Weight (Ounces): 0.0 Precautions Precautions/Isolations: Contact Isolation, Aspiration, Fall Prevention, Pressure Ulcer Weight Bear Status Right Lower Extremity: Right Full Weight Bearing Left Lower Extremity: Left Full Weight Bearing Referral Physician: Brenna Reason for Referral: Evaluation/Treatment Medical History Pertinent Medical History: COPD, DM, HTN, Renal Insufficiency, Smoking Current History EMS found unresponsive (unknown time) Reviewed History: Yes Social History Home: Apartment Current Living Status: Alone Prior/Core FIM Prior Level of Function Therapy Code Descriptions/Definitions Functional [place] Measure: 0=Not Assessed/NA 4=Minimal Assistance 1=Total Assistance 5=Supervision or Setup 2=Maximal Assistance 6=Modified [place] 3=Moderate Assistance 7=Complete [place] Therapy Quality Codes: 6 Independent with activity with or without an assistive device 5 Patient requires set up or clean up by helper. Patient completes activity by themselves 4 Supervision or touching assist (CGA). [place] provide cues , steadying assist 3 The helper provides less than half the effort to complete the activity 2 The helper provides more than half the effort to complete the activity 1 Dependent. The helper does all the effort to complete an activity 7 Patient refused to complete or attempt activity 9 The patient did not perform the activity before the current illness or injury 88 Not attempted due to Medical conditions or safety concerns Functional Abilities and Goals: Independent: Patient completed the activities by him/herself, with or without an assistive device, with no assistance from a helper. Needed Some Help: Patient needed partial assistance from another person to complete activities. Dependent: A helper completed the activities for the patient. Unknown: Not Applicable: Bed Mobility: 7 Transfers (B,C,W/C) (FIM): 7 Gait: 7 Indoor Mobility (Ambulation): Independent Stairs: Independent Prior Devices Use: None PT Evaluation-Current Subjective Patient's eyes are open, does not respond. Pain Numeric Pain Scale: 0-No Pain Location: No Pain Reported Objective Patient Orientation: Unable to Assess, Eyes Open Problem Solving: Poor Attachments: Oxygen, [place] Catheter, IV ROM/Strength ROM Lower Extremities bilateral LE WFL Strength Lower Extremities unable to formally assess (3-/5 grossly) Integumentary/Posture Integumentary refer to nursing notes Bladder Incontinence: De [place] Fuente Cath Neuromuscular (Tone, Coordination, Reflexes) increase tone bilateral UE/severely diminished coordination Sensory Vision: Unable to Assess Hearing: Unable to Assess Sensation Right Lower Extremit: Impaired Sensation Left Lower Extremity: Impaired Transfers Therapy Code Descriptions/Definitions Functional [place] Measure: 0=Not Assessed/NA 4=Minimal Assistance 1=Total Assistance 5=Supervision or Setup 2=Maximal Assistance 6=Modified [place] 3=Moderate Assistance 7=Complete [place] Transfers (B, C, W/C) (FIM): 1 Scootin Rollin Supine to/from Sit: 1 Patient unable to follow simple command/very resistive with all attempt with mobility Balance Sitting Static: Poor Sitting Dynamic: Poor Assessment/Needs 52 y.o. female, will be monitored by PT to assess LOB and to determine POC. Currently, patient does not appropriately respond to verbal stimuli and is unable to follow simple direction. Physician aware. Rehab Potential: Guarded PT Group Home Goals Group Home Goals PT Web Developer Goals Time Frame: Jun 13, 2018 Transfers (B,C,W/C) (FIM): 2 PT Plan Problem List Problem List: Activity Tolerance, Functional Strength, Safety, Balance, Gait, Transfer, Bed Mobility Treatment/Plan Treatment Plan: Continue Plan of Care Treatment Plan: Bed Mobility, Education, Functional Activity Carlos, Functional Strength, Gait, Safety, Therapeutic Exercise, Transfers Treatment Duration: Jun 13, 2018 Frequency: 5 times per week Estimated Hrs Per Day: .25 hour per day Patient and/or Family Agrees t: Yes Discharge Recommendations Therapy D/C Recommendations: Care Home Placement Time/GCodes Time In: 955 Time Out: 1003 Total Billed Treatment Time: 8 Total Billed Treatment 1 visit EVLowC 8 min G Codes Necessary: No LISA NARANJO PT Jun 08, 2018 10:57
[2018-06-08] MEDS ORDERED: NS 1000 ML IV BAG IV ONE (11:00)
[2018-06-08 12:00] VITALS: BP 141/89
--- NOTE | 2018-06-08 12:14 | Progress Note-Hospitalist ---
Subjective HPI/CC On Admission Date Seen by Provider: Jun 08, 2018 Time Seen by Provider: 11:00 Subjective/Events-last exam Patient still with nonpurposeful movements but she is waking up a bit more EEG and further imaging studies would not be helpful to evaluate brain function and return of any purposeful activity Updated family with social work We'll recheck the [place] Either needs a PEG tube or hospice Family appears to be very reasonable and likely will choose hospice if [place] does not feel any recovery potential Objective Exam Vital Signs Vital Signs Date Time Temp Pulse Resp B/P (MAP) Pulse Ox O2 Delivery O2 Flow Rate FiO2 06/08/18 12:51 69 06/08/18 12:00 98.6 24 141/89 (106) 100 NIV Bilevel 21.00 06/07/18 20:00 21 Capillary Refill : Less Than 3 Seconds General Appearance: No Apparent Distress, WD/WN, Chronically ill Respiratory: Chest Non Tender, Lungs Clear, Normal Breath Sounds, No Accessory Muscle Use, No Respiratory Distress Cardiovascular: Regular Rate, Rhythm, No Edema, No Gallop, No JVD, No Murmur, Normal Peripheral Pulses Neurologic/Psychiatric: Other (Comatose with eye opening at times and nonpurposeful movements) Results/Procedures Lab Laboratory Tests 06/08/18 03:40 Patient resulted labs reviewed. Assessment/Plan Assessment and Plan Assess & Plan/Chief Complaint Assessment: 1. Hypoglycemia with Encephalopathy 2. Acute Respiratory Failure with respiratory acidosis due to Encephalopathy s/ p extubation 3. UTI--on abx 4. History of narcotic abuse and kratom abuse Plan: Monitor for any recovery Referred a [place] Either needs PEG tube or hospice Recovery potential not expected in the opinion of this medical practice assistant Diagnosis/Problems Diagnosis/Problems (1) Neurocognitive deficits Status: Acute (2) Hypoglycemia Status: Resolved Resolution Date/Time: 06/06/18 @ 12:44 (3) Acute respiratory failure Status: Acute Qualifiers: Respiratory failure complication: unspecified whether with hypoxia or hypercapnia Qualified Codes: J96.00 - Acute respiratory failure, unspecified whether with hypoxia or hypercapnia (4) Altered mental status Status: Acute Qualifiers: Altered mental status type: unspecified Qualified Codes: R41.82 - Altered mental status, unspecified Clinical Quality Measures DVT/VTE Risk/Contraindication: Risk Factor Score Per Nursin RFS Level Per Nursing on Admit: 4+=Very High SOHAIL HUBER 31, 2018 12:14
--- NOTE | 2018-06-08 14:31 | Occ Therapy Progress Note ---
Therapy Progress Note 0395 Pt unresponsive to verbal or tactile stimuli, other than opening one eye for a second, then closing it. Unable to participate in OT eval at this time. Will continue to follow. visit DIANA VELA OT Jun 08, 2018 14:31
[2018-06-08] MEDS: FLUCONAZOLE 200 MG/100 ML 50 ML, EMPTY IV BAG (PVC) 1 EA IV SCH ×2 (14:42)
[2018-06-08] MEDS: VANCOMYCIN INJECTION 1,500 MG in NS IV 500 ML 500 ML IV SCH (15:16)
--- NOTE | 2018-06-08 15:42 | NUR ---
CM/SS, respond to consult. Rounded with physician Dr. Mercado, discussed patient current status and potential prognosis with family: Daughters Boo Nguyen, Alla Amaya, and son Ciro Palmer. Long time friend described as "sister-like" to patient there as well, Rylie Gibbs. With family agreement, referral completed with [facility]. Anticipate acceptance, [facility] liaison to discuss with Dr. eMrcado regarding timeline and final approval to transfer. Children presented as very realistic, spiritual, and accepting of patient's current life chapter. They did indicate they would like to give patient the opportunity to recover, but that if indications were that she would not, they were prepared to explore taking her home on hospice. Patient remains a full code, recommend this be discussed with family on behalf of patient. Updated Palliative Care RN/Kirk regarding opportunity to provide hospice information as needed. Spoke with daughter Boo Nguyen to update thus far, informed Unit RN that Boo would like to be called if patient is scheduled for actual transfer. Boo would like to follow EMS and meet the staff at [facility] that would be providing care.
--- NOTE | 2018-06-08 15:56 | NUR ---
Benzene Washer follow up with friends from her [employer] and childhood friend, Teresa. Pt intermittently opens her eyes and moves her arms and legs, however does not respond directly to voice or touch. Offered supportive presence through active listening and compassionate presence.
[2018-06-08 16:00] VITALS: BP 152/82
--- NOTE | 2018-06-08 16:14 | NUR ---
CM/SS. Discussed code status with daughter Boo Nguyen who is primary contact and she discussed with her sister Alla Amaya and called back. They are in agreement they do not want patient coded but rather prefer/request she be made a DNR/DNI status. Boo went on to say her mother had discussed with her in the past she never wanted to be intubated again, but Boo agreed to it this admission due to the unexpected acute onset and in hopes that patient would have a quick recovery like before. Updated Unit RN and Dr. Mercado.
[2018-06-08] MEDS: CATHETER FLUSH 10 ML SYR IV PRN (16:36)
--- NOTE | 2018-06-08 18:08 | NUR ---
1220 DR HUBER ON FLOOR ORDERS RECEIVED TO GIVE NORMAL SALINE AT 80 ML/HR. 1235 PT'S RIGHT EYE PUPIL NOTED TO BE PINPOINT IN SIZE AND REACTIVE, LEFT PUPIL DILATED AND NON REACTIVE. DR HUBER NOTIFIED AND ALSO NOTIFIED PT'S CODE STATUS BEING FULL. NO NEW ORDERS RECEIVED.
[2018-06-08] MEDS ORDERED: NS 1000 ML IV BAG IV SCH (22:00)
[2018-06-08] MEDS: NS 1000 ML IV BAG IV SCH (23:02)
[2018-06-09] MEDS: inSUlin ASPART (NovoLOG) 1 UNIT/0.01 ML (CHARGE PER UNIT) SC SCH ×4 (00:04→12:14)
[2018-06-09 00:41] VITALS: BP 142/89
[2018-06-09] MEDS: morphine INJ 4 MG/ML 1 ML (VIAL/SYRINGE) IVP PRN ×3 (02:05→13:02)
[2018-06-09] MEDS: RT-ALBUTEROL/IPRATROPIUM 3 ML (DUONEB) VIAL INH SCH ×2 (03:07→08:11)
[2018-06-09 04:53] LABS: BASOPHILS % (AUTO) 0 % (0-10); EOSINOPHILS # (AUTO) 0.1 10^3/uL (0.0-0.3); EOSINOPHILS % (AUTO) 2 % (0-10); HEMATOCRIT 30 % (35-52); HEMOGLOBIN 9.2 G/DL (11.5-16.0); LYMPHOCYTES # (AUTO) 1.9 X 10^3 (1.0-4.0); LYMPHOCYTES % (AUTO) 25 % (12-44); MEAN CORPUSCULAR HEMOGLOBIN 28 PG (25-34); MEAN CORPUSCULAR HGB CONC 31 G/DL (32-36); MEAN CORPUSCULAR VOLUME 91 FL (80-99); MEAN PLATELET VOLUME 10.4 FL (7.4-10.4); MONOCYTES # (AUTO) 0.4 X 10^3 (0.0-1.0); MONOCYTES % (AUTO) 5 % (0-12); NEUTROPHILS # (AUTO) 5.3 X 10^3 (1.8-7.8); NEUTROPHILS % (AUTO) 69 % (42-75); PLATELET COUNT 257 10^3/uL (130-400); RED BLOOD COUNT 3.26 10^6/uL (4.35-5.85); RED CELL DISTRIBUTION WIDTH 14.4 % (10.0-14.5); WHITE BLOOD COUNT 7.7 10^3/uL (4.3-11.0)
[2018-06-09 05:11] LABS: CALCIUM 8.5 MG/DL (8.5-10.1); CREATININE SERUM 1.31 MG/DL (0.60-1.30); MAGNESIUM 1.9 MG/DL (1.8-2.4); PHOSPHORUS 3.5 MG/DL (2.3-4.7); POTASSIUM 4.2 MMOL/L (3.6-5.0)
[2018-06-09] MEDS: NS 1000 ML IV BAG IV SCH ×2 (05:23→14:16)
[2018-06-09 08:00] VITALS: BP 150/73
--- NOTE | 2018-06-09 08:08 | Pulmonary Progress Note ---
Subjective Time Seen by a Provider: 08:33 Subjective/Events-last exam Pt still confused and does not follow commands. Sepsis Event Evaluation Height, Weight, BMI Height: 5'2.00" Weight: 224lbs. 0.0oz. [id number]; 47.6 BMI Method:Estimated Exam Exam Vital Signs Date Time Temp Pulse Resp B/P (MAP) Pulse Ox O2 Delivery O2 Flow Rate FiO2 06/09/18 03:07 80 14 97 21.00 06/09/18 00:41 98.9 88 18 142/89 (106) 94 NIV Bilevel 21.00 06/09/18 00:15 80 17 96 21.00 06/08/18 22:02 76 14 97 21.00 06/08/18 20:10 100 NIV Bilevel 21 06/08/18 16:01 101.0 06/08/18 16:00 79 20 152/82 (105) 100 NIV Bilevel 21.00 06/08/18 14:19 95 22 95 21.00 06/08/18 12:51 69 06/08/18 12:00 98.6 72 24 141/89 (106) 100 NIV Bilevel 21.00 06/08/18 09:42 95 21 95 21.00 06/08/18 08:25 100 NIV Bilevel 21 I & O 06/09/18 07:00 Intake Total 750 ml Output Total 895 ml Balance -145 ml Height & Weight Height: 5'2.00" Weight: 224lbs. 0.0oz. 101.599694yx; 47.6 BMI Method:Estimated General Appearance: No Apparent Distress, WD/WN, Chronically ill HEENT: Other (pupils equal bilat and sluggish) Neck: Supple Respiratory: Chest Non Tender, Lungs Clear, Normal Breath Sounds, No Accessory Muscle Use, No Respiratory Distress Cardiovascular: Regular Rate, Rhythm, No Edema, No Gallop, No JVD, No Murmur, Normal Peripheral Pulses Capillary Refill: Less Than 3 Seconds Gastrointestinal: normal bowel sounds, soft Extremity: Non Tender, No Calf Tenderness, No Pedal Edema Neurologic/Psychiatric: Other (Comatose with eye opening at times and nonpurposeful movements) Skin: Warm/Dry Lymphatic: No Adenopathy Results Lab Laboratory Tests 06/08/18 03:40 06/09/18 04:35 Assessment/Plan Assessment/Plan Acute respiratory failure with Pneumonia - improving -BiPAP PRN MRSA bacteremia -vancomycin Metabolic encephalopathy secondary to hypoglycemia -repeat CT of head with contrast is negative -Aspiration precautions Sepsis with UTI and aspiration pneumoia -Continue vancomycin and zosyn -Pt is also on Diflucan HX of narcotic abuse and kratom abuse [facility]able [facility] transfer todayay WHITNEY BEASLEY DO Jun 09, 2018 08:08
--- NOTE | 2018-06-09 08:55 | Physical Therapy Progress Note ---
Therapy Progress Note PT consulted with RN. No treatment on this date due to patient decline in medical status and is currently on Bipap. LISA NARANJO PT Jun 09, 2018 08:55
[2018-06-09] MEDS: PANTOPRAZOLE 40 MG (PROTONIX) VIAL IV SCH (10:23)
[2018-06-09] MEDS: ENOXAPARIN 40 MG/0.4 ML (LOVENOX) SYR SC SCH (10:23)
[2018-06-09] MEDS: FLUCONAZOLE 200 MG/100 ML 50 ML, EMPTY IV BAG (PVC) 1 EA IV SCH ×2 (10:24)
--- NOTE | 2018-06-09 10:31 | Discharge Summary-Hospitalist ---
Diagnosis/Chief Complaint Date of Admission Jun 03, 2018 at 16:14 Date of Discharge Discharge Date: Jun 09, 2018 Discharge Diagnosis (1) Neurocognitive deficits Status: Acute (2) Hypoglycemia Status: Resolved (3) Acute respiratory failure Status: Acute (4) Altered mental status Status: Acute Discharge Summary Discharge Physical Exam Allergies: Coded Allergies: codeine (Verified Allergy, Mild, ITCHING, 02/07/18) Sulfa (Sulfonamide Antibiotics) (Verified Allergy, Unknown, HIVES, 02/07/18) Vitals & I&Os Vital Signs Date Time Temp Pulse Resp B/P (MAP) Pulse Ox O2 Delivery O2 Flow Rate FiO2 06/09/18 16:26 94 13 150/73 96 Simple Mask 2.00 06/09/18 08:00 97.4 06/09/18 08:00 21 General Appearance: No Apparent Distress, WD/WN, Obese Neurologic/Psychiatric: Disoriented, Other (non-purposeful movements) Hospital Course Hospital course: Patient had a lengthy hospital course that started with altered mental status and found down with severe hypoglycemia of 38 and urine drug screen revealing illicit drugs along with opioids and benzodiazepines and marijuana. Patient never regained consciousness and only had nonpurposeful movements but she was extubated placed periodically on BiPAP for apnea episodes and family requested DNR and that order was initiated. Since there was uncertainty of regaining any brain function she was sent to [facility] in [place] and there they would decide whether a PEG tube placement would be in order or if she does not recover family was interested in hospice and not continuing life in a vegetative state. 1 hour of discharge time was required and conferring with physician who accepted her at [facility] and organizing discharge orders. Labs (last 24 hrs) Laboratory Tests 06/09/18 00:00: Glucometer 202H 06/09/18 04:35: White Blood Count 7.7, Red Blood Count 3.26L, Hemoglobin 9.2L, Hematocrit 30L, Mean Corpuscular Volume 91, Mean Corpuscular Hemoglobin 28, Mean Corpuscular Hemoglobin Concent 31L, Red Cell Distribution Width 14.4, Platelet Count 257, Mean Platelet Volume 10.4, Neutrophils (%) (Auto) 69, Lymphocytes (%) (Auto) 25 , Monocytes (%) (Auto) 5, Eosinophils (%) (Auto) 2, Basophils (%) (Auto) 0, Neutrophils # (Auto) 5.3, Lymphocytes # (Auto) 1.9, Monocytes # (Auto) 0.4, Eosinophils # (Auto) 0.1, Basophils # (Auto) 0.0, Sodium Level 141, Potassium Level 4.2, Chloride Level 106, Carbon Dioxide Level 19L, Anion Gap 16H, Blood Urea Nitrogen 10, Creatinine 1.31H, Estimat Glomerular Filtration Rate 43, BUN/ Creatinine Ratio 8, Glucose Level 177H, Calcium Level 8.5, Phosphorus Level 3.5 , Magnesium Level 1.9 06/09/18 08:06: Glucometer 171H 06/09/18 12:06: Glucometer 149H Microbiology 06/03/18 Blood Culture - Final, Complete No growth 06/04/18 MRSA Screen - Final, Complete 06/07/18 Urine Culture - Final, Complete Yeast species Patient resulted labs reviewed. Pending Labs Discussion & Recommendations Discharge Planning: >30 minutes discharge planning Discharge Home Medications: Active Scripts Active No Active Prescriptions or Reported Medications Instructions to patient/family Please see electronic discharge instructions given to patient. Clinical Quality Measures DVT/VTE Risk/Contraindication: Risk Factor Score Per Nursin RFS Level Per Nursing on Admit: 4+=Very High Problem Qualifiers (1) Acute respiratory failure: Respiratory failure complication: unspecified whether with hypoxia or hypercapnia Qualified Codes: J96.00 - Acute respiratory failure, unspecified whether with hypoxia or hypercapnia (2) Altered mental status: Altered mental status type: unspecified Qualified Codes: R41.82 - Altered mental status, unspecified SOHAIL HUBER DO Jun 09, 2018 10:31
--- NOTE | 2018-06-09 12:51 | Occ Therapy Progress Note ---
Therapy Progress Note Due to decline in patient's medical condition and inability to participate, will DC OT. If patient's status changes, will be willing to reevaluate. DIANA VELA OT Jun 09, 2018 12:51
[2018-06-09] MEDS: VANCOMYCIN INJECTION 1,500 MG in NS IV 500 ML 500 ML IV SCH (13:59)
[2018-06-09 16:26] VITALS: BP 150/73
--- NOTE | 2018-06-09 16:31 | NUR ---
DAUGHTER JACQUELINE AND LANDMARK NOTIFIED OF PT'S TIME OF DISMISSAL.
== END 2018-06-09 16:22 | DRG 981 ==
LOC: ER 11:59 → ICU 16:14 → 4TH 06-07 08:58
PROVIDERS: ADMIT Family Medicine; ATTEND Family Medicine
PROC: 5A1945Z Respiratory Ventilation, 24-96 Consecutive Hours (ICD-10-PCS; 2018-06-03)
PROC: 0B9M8ZZ Drainage of Bilateral Lungs, Via Natural or Artificial Opening Endoscopic (ICD-10-PCS; principal; 2018-06-05)
PROC: 0BD38ZX Extraction of Right Main Bronchus, Via Natural or Artificial Opening Endoscopic, Diagnostic (ICD-10-PCS; 2018-06-05)
PROC: 0BD78ZX Extraction of Left Main Bronchus, Via Natural or Artificial Opening Endoscopic, Diagnostic (ICD-10-PCS; 2018-06-05)
DX: E11.649 Type 2 diabetes mellitus with hypoglycemia without coma (principal); G93.41 Metabolic encephalopathy; J96.01 Acute respiratory failure with hypoxia; A41.02 Sepsis due to Methicillin resistant Staphylococcus aureus; J69.0 Pneumonitis due to inhalation of food and vomit; B37.49 Other urogenital candidiasis; E87.2 Acidosis; T17.900A Unspecified foreign body in respiratory tract, part unspecified causing asphyxiation, initial encounter; Z66 Do not resuscitate; E11.21 Type 2 diabetes mellitus with diabetic nephropathy; J44.9 Chronic obstructive pulmonary disease, unspecified; I10 Essential (primary) hypertension; G47.30 Sleep apnea, unspecified; E78.00 Pure hypercholesterolemia, unspecified; F17.200 Nicotine dependence, unspecified, uncomplicated; R60.9 Edema, unspecified; I87.2 Venous insufficiency (chronic) (peripheral); F41.9 Anxiety disorder, unspecified; F32.9 Major depressive disorder, single episode, unspecified; K21.9 Gastro-esophageal reflux disease without esophagitis; M54.9 Dorsalgia, unspecified; Z79.4 Long term (current) use of insulin; Z91.19 Patient's noncompliance with other medical treatment and regimen; Z87.19 Personal history of other diseases of the digestive system
CPT/HCPCS: 0042T; 31500; 36415; 36600; 70450; 70470; 70496; 70498; 71045; 71270; 80048; 80053; 80061; 80202; 80306; 81000; 82140; 82274; 82805; 82962; 83605; 83735; 84100; 84443; 84484; 85025; 85379; 85610; 85730; 87040; 87077; 87081; 87088; 87186; 93005; 93041; 93306; 94002; 94003; 94640; 94660; 94799; 96361; 96365; 96375; 96376; 99291

== ENCOUNTER 2018-07-02 09:03 | Inpatient (IN) | payer MEDICARE, MEDICAID ==
[~2018-07-02] VITALS: Ht 157.5 cm; Wt 93.4 kg
[~2018-07-02 09:03] MED LIST changes: +DULO30CA3 PO
[2018-07-02] MEDS ORDERED: ONDANSETRON 4 MG (ZOFRAN) ORAL DISSOLVE TAB PO PRN (09:15)
[2018-07-02] MEDS ORDERED: LOPERAMIDE 2 MG (IMODIUM) CAP PO PRN (09:15)
[2018-07-02] MEDS ORDERED: DOCUSATE SODIUM 100 MG (COLACE) CAP PO PRN (09:15)
[2018-07-02] MEDS ORDERED: BISACODYL 10 MG SUPP (DULCOLAX) PR PRN (09:15)
[2018-07-02] MEDS ORDERED: CALCIUM CARBONATE 500 MG (TUMS) TAB.CHEW PO PRN (09:15)
[2018-07-02] MEDS ORDERED: POLYETHYLENE GLYCOL 17 GM (MIRALAX) PACK PO PRN (09:15)
[2018-07-02] MEDS ORDERED: diphenhydrAMINE 25 MG TAB (BENADRYL) PO PRN (09:15)
--- NOTE | 2018-07-02 09:40 | NUR ---
Pt admitted to room 231, with an admitting diagnosis of Encephalopathy/Debility, from [facility], in [place], [place] via EMS stretcher, accompanied by 2 EMS attendants. CHEPE CASTANEDA introduced to surroundings, call light, bed controls, phone, TV, temperature control, lights, meal times, smoking policy, visitor policy, side rail policy, bathrooms and showers. Patient Rights given to patient in the handbook. CHEPE CASTANEDA acknowledges understanding that [facility] is not responsible for the loss or damage to any personal effects or valuables that are kept in the patients posession during their hospitalization. The following Patient Care Plans were discussed with the pt: Discharge Planning, Self Care Deficit, Impaired Mobility/Memory, Potential for fall/injury. According to nursing report from [facility], pt has fell there 1 time d/t impulsivity. Pt placed in room closer to nurses desk for this reason, 4 rails up, call lt in reach, or hand, bed/chair alarm to be used. CHEPE CASTANEDA acknowledges understanding of Interdisciplinary Patient Education. Patient and/or family were informed about the Rapid Response Team and its purpose. Patient received Patient Rights Booklet, which includes Privacy Act Statement and Data Collection Information Summary.
[2018-07-02 10:05] VITALS: BP 119/79
[2018-07-02] MEDS ORDERED: INSU100I29 SC (11:11)
[2018-07-02] MEDS ORDERED: ONDA4TAB10 PO (11:11)
[2018-07-02] MEDS ORDERED: ACET-2650 PO (11:11)
[2018-07-02] MEDS ORDERED: OMEP20CA12 PO (11:11)
[2018-07-02] MEDS ORDERED: DULO30CA48 PO ×2 (11:11)
[2018-07-02] MEDS ORDERED: RT-ALBUINH INH (11:11)
[2018-07-02] MEDS ORDERED: PREG100C PO (11:11)
[2018-07-02] MEDS ORDERED: CARV25TA PO (11:11)
[2018-07-02] MEDS ORDERED: INSU100I14 SC (11:11)
--- NOTE | 2018-07-02 11:15 | NUR ---
REVIEWED THE MED REC IT WAS WHEN THE PATIENT WAS ADMITTED LAST IN MAY. SHE WAS TRANSFERRED TO [facility] AFTER THAT VISIT AND SEVERAL CHANGES WERE MADE WHICH ARE NOT REFLECTED ON THE HOME MED REC AT THIS TIME. UPON ADMISSION ON 06-03-18 THE PATIENT WAS UNABLE TO VERIFY HER HOME MEDS AND THE LIST WAS UPDATED WITH THE EXT MED HX. I HAVE SET THE MED REC BACK TO THAT SAME LIST AT THIS TIME. NOTE THE MED LIST THAT WAS SENT OVER FROM [facility] AT THIS TIME IS FOLLOWS: AMITRIPTYLINE 10MG HS CARVEDILOL 12.5MG BID BENADRYL 25MG HS DULOXETINE 30MG TID LOVENOX 40MG 1700 NOVOLOG SLIDING SCALE ACHS LANTUS 20 UNITS BID MTV WITH MINERALS DAILY PROTONIX 40MG DAILY VALPROIC ACID SUSP 75MG BID TYLENOL 325MG 2 Q6H PRN VENTOLIN 2 PUFFS Q6H TRAMADOL 50MG Q6H PRN
--- NOTE | 2018-07-02 11:59 | Physical Therapy Evaluation ---
PT Evaluation-General Medical Diagnosis Admission Date Jul 02, 2018 at 09:40 Medical Diagnosis: Encephalopathy, anoxia Onset Date: Jul 02, 2018 Therapy Diagnosis Therapy Diagnosis: impaired mobility, strength, endurance Height/Weight Height (Feet): 5 Height (Inches): 2.00 Weight (Pounds): 224 Weight (Ounces): 0.0 Referral Physician: Ashlee Mercado DO Reason for Referral: Evaluation/Treatment Medical History Pertinent Medical History: COPD, DM, HTN, Renal Insufficiency, Smoking Additional Medical History Drug abuse, anxiety, chronic back pain, intubation, pancreatitis, ORIF right ankle Current History Pt. had anoxic event due to accidental overdose. Came to this rehab from [place]. Reviewed History: Yes Social History Home: Apartment Current Living Status: Alone Entry Into Home: Level Entry Prior/Core FIM Prior Level of Function Therapy Code Descriptions/Definitions Functional [place] Measure: 0=Not Assessed/NA 4=Minimal Assistance 1=Total Assistance 5=Supervision or Setup 2=Maximal Assistance 6=Modified [place] 3=Moderate Assistance 7=Complete [place] Therapy Quality Codes: 6 Independent with activity with or without an assistive device 5 Patient requires set up or clean up by helper. Patient completes activity by themselves 4 Supervision or touching assist (CGA). [place] provide cues , steadying assist 3 The helper provides less than half the effort to complete the activity 2 The helper provides more than half the effort to complete the activity 1 Dependent. The helper does all the effort to complete an activity 7 Patient refused to complete or attempt activity 9 The patient did not perform the activity before the current illness or injury 88 Not attempted due to Medical conditions or safety concerns Functional Abilities and Goals: Independent: Patient completed the activities by him/herself, with or without an assistive device, with no assistance from a helper. Needed Some Help: Patient needed partial assistance from another person to complete activities. Dependent: A helper completed the activities for the patient. Unknown: Not Applicable: Bed Mobility: 7 Transfers (B,C,W/C) (FIM): 7 Gait: 7 Stairs: 7 Indoor Mobility (Ambulation): Independent Stairs: Independent PT Evaluation-Current Subjective Patient in bed pre tx, agrees to PT, no complaints of pain. Pt/Family Goals patient is having trouble stating a goal for therapy Objective Patient Orientation: Person, Confused, Place Patient has speech difficulties. ROM/Strength ROM Lower Extremities WNL Strenght Lower Extremities 4/5 gross bilateral lower extremities Neuromuscular (Tone, Coordination, Reflexes) Patient seems to have intact peripheral vision, has trouble following directions when testing visual tracking. Sensory Vision: Functional Hearing: Functional Sensation Right Lower Extremit: Intact Sensation Left Lower Extremity: Intact Transfers Therapy Code Descriptions/Definitions Functional [place] Measure: 0=Not Assessed/NA 4=Minimal Assistance 1=Total Assistance 5=Supervision or Setup 2=Maximal Assistance 6=Modified [place] 3=Moderate Assistance 7=Complete [place] Therapy Quality Codes: 6 Independent with activity with or without an assistive device 5 Patient requires set up or clean up by helper. Patient completes activity by themselves 4 Supervision or touching assist (CGA). [place] provide cues , steadying assist 3 The helper provides less than half the effort to complete the activity 2 The helper provides more than half the effort to complete the activity 1 Dependent. The helper does all the effort to complete an activity 7 Patient refused to complete or attempt activity 9 The patient did not perform the activity before the current illness or injury 88 Not attempted due to Medical conditions or safety concerns Transfers (B, C, W/C) (FIM): 4 Scootin Rollin Roll Left to Right (QC): 4 Supine to/from Sit: 5 Sit to/from Stand: 4 Sit to Lying (QC): 4 Lying to Sitting/Side of Bed(Q: 4 Sit to Stand (QC): 4 Chair/Gox-xd-Lmzwr Xfer(QC): 4 Car Transfer (QC): 4 Patient performs bed mobility with SBA, supine <-> sit with SBA, sit <-> stand with CGA, transfers, CGA, car transfer CGA. Occasional cues for safety and hand placement. Gait Does the Patient Walk?: Yes Mode of Locomotion: Walk Anticipated Mode of Locomotion: Walk Gait (FIM): 4 Walk 10 feet (QC): 4 Walk 50 ft with 2 Turns(QC): 4 Walk 150 ft (QC): 4 Walking 10ft/uneven surface-QC: 4 Distance: 150'x2 Gait Level of Assist: 4 Gait Persons Needed: 1 Gait Assistive Device: FWW Comments/Gait Description Patient can ambulate 150' with a rolling walker with CGA (including 50' with at least 2 turns of 90 degrees and 10' over an uneven surface). Patient ambulates with a wide base of support and toes outward. She has trouble with staying behind the walker. Wheelchair Training Does the Pt Use a Wheelchair?: No Stairs Stairs (FIM): 2 #of Steps: 4 Level of Assist: 4 1 Step (curb) (QC): 4 4 Steps (QC): 4 Patient can go up and down 4 steps using 2 handrails with CGA. Cues for safety. Balance Sitting Static: Normal Sitting Dynamic: Normal Standing Static: Good Standing Dynamic: Good Treatment Parallel bars exercises x15 (heel raises, mini-squats, hip abd, hamstring curls) . NuStep level 4 for 10 min. Patient was also toileted once to urinate, she wiped herself. Assessment/Needs Patient has impaired mobility, strength, endurance, balance. She has trouble communicating. Patient has trouble following some directions. Rehab Potential: Fair PT Short Term Goals Short Term Goals Time Frame: Jul 09, 2018 Transfers (B,C,W/C) (FIM): 6 Gait (FIM): 5 Gait Distance Comment: 200' Gait Level of Assist: 5 Gait Assistive Device: FWW PT Detention Goals Tanker Truck Driver Goals PT Tanker Truck Driver Goals Time Frame: Jul 23, 2018 Transfers (B,C,W/C) (FIM): 6 Sit to Lying (QC): 6 Lying-Sitting on Side/Bed(QC): 6 Sit to Stand (QC): 6 Rollin Roll Left to Right (QC): 6 Chair/Jxa-ut-Qgfyj Xfer(QC): 6 Car Transfer (QC): 6 Gait (FIM): 6 Distance: 300' Walk 10 feet (QC): 6 Walk 10ft-Uneven Surface(QC): 6 Walk 50ft with 2 Turns (QC): 6 Walk 150 ft (QC): 6 Gait Level of Assist: 6 Gait Assistive Device: FWW Stairs (FIM): 5 # of Steps: 12 1 Step (curb) (QC): 4 4 Steps (QC): 4 12 Steps (QC): 4 Stairs Level Of Assist: 5 PT Plan Problem List Problem List: Activity Tolerance, Functional Strength, Safety, Balance, Gait, Transfer, Bed Mobility Treatment/Plan Treatment Plan: Continue Plan of Care Treatment Plan: Bed Mobility, Education, Functional Activity Carlos, Functional Strength, Group Therapy, Gait, Safety, Therapeutic Exercise, Transfers Treatment Duration: Jul 23, 2018 Frequency: At least 5 of 7 days/Wk (IRF) Estimated Hrs Per Day: 1.5 hours per day Patient and/or Family Agrees t: Yes Safety Risks/Education Patient Education: Gait Training, Transfer Techniques, Steps, Correct Positioning, Safety Issues Teaching Recipient: Patient Teaching Methods: Demonstration, Discussion Response to Teaching: Reinforcement Needed Discharge Recommendations Therapy D/C Recommendations: Assisted Living, Home w/ Family Support, [facility] (TCU/[facility]) Time/GCodes Time In: 1100 Time Out: 1200 Total Billed Treatment Time: 60 Total Billed Treatment 1 visit EVM 30' EX 15' GT 15' SHEA LOZOYA PT Jul 02, 2018 11:58
--- NOTE | 2018-07-02 12:10 | PM&R H&P / Post Admit Assess ---
History of Present Illness HPI/Chief Complaint CC: Anoxic brain injury recovery HPI: This is a 52-year-old white female clinic patient of Dr. Hadier who suffered a hypoglycemic episode and was found down for undetermined amount of time and suffered respiratory failure with anoxic brain injury who was intubated stabilized then extubated but had no return of meaningful function of any of her extremities or brain function who was at a standstill and uncertain of any return of brain function and family uncertain whether they wanted to have a PEG tube placed or any other artificial means of support so [facility] graciously accepted the patient and I was the one that actually transferred her there and she required extensive medical treatment along with NG tube placement for nutritional support and multiple medications to treat aggressive and agitated episodes but she ultimately recovered and although her communication and word finding is still an issue she has started feeding herself and taking care of herself and just starting to walk again. Dr. Haider has been consulted for primary care provider management. She wishes to be DO NOT RESUSCITATE so that order was written. Overall patient appears to be much improved very appreciative of everyone's help and she has already started on therapy and walking with physical therapy. Source: patient, RN/MD, old records Exam Limitations: no limitations Date Seen 07/02/18 Time Seen by a Provider: 11:30 Attending Physician Ashlee Mercado DO PCP Bailee Haider DO Referring Physician Date of Admission Jul 02, 2018 at 09:40 Home Medications & Allergies Home Medications Reviewed patient Home Medication Reconciliation performed by pharmacy medication reconciliations computer systems technician and/or nursing. Patients Allergies have been reviewed. Allergies Allergies Coded Allergies codeine (Verified Allergy, Mild, ITCHING, Pt has received Lortab in the past, 07/02/18) Sulfa (Sulfonamide Antibiotics) (Verified Allergy, Unknown, HIVES, 02/07/18) Past Wefhdku-Wppuex-Tzljvo Hx Past Med/Social Hx: Reviewed Nursing Past Med/Soc Hx, Reviewed and Corrections made Patient Social History Marrital Status: single Employed/Student: unemployed Drug of Choice: opioids Smoking Status: Current Someday Smoker Type Used: Cigarettes 2nd Hand Smoke Exposure: Yes Recent Foreign Travel: No Contact w/other who traveled: No Recent Hopitalizations: No Immunizations Up To Date Tetanus Booster (TDap): Less than 5yrs Date of Pneumonia Vaccine: Jun 09, 2008 Date of Influenza Vaccine: Mar 29, 2015 Seasonal Allergies Seasonal Allergies: Yes Past Medical History Surgeries: Section, Gallbladder, Orthopedic, Tubal Ligation Respiratory: COPD Cardiac: Chronic Edema/Swelling, High Cholesterol, Hypertension Neurological: Neuropathy, Traumatic Brain Injury 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: No Sexually Transmitted Disease: No HIV/AIDS: No 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 Disorders: Denies Tubal Ligation Genitourinary: Renal Failure, UTI-Chronic Gastrointestinal: Gastroesophageal Reflux, Pancreatitis Musculoskeletal: Degenerate Disk Disease, Chronic Back Pain Endocrine: Diabetes, Insulin dep Psychosocial: Sleep Difficulties, Anxiety, Depression Skin/Integumentary: Recent Skin Changes History of Blood Disorders: No Adverse Reaction to Blood Alvarado: No Family History Completed stroke 19 FATHER Congenital heart disease 19 FATHER Diabetes mellitus 19 FATHER Myocardial infarction 19 FATHER Psychosocial problem 19 FATHER (depression) 19 MOTHER (depression) Respiratory disorder 19 MOTHER (copd) No Pertinent Family Hx, Diabetes Review of Systems Constitutional: see HPI, dizziness, weakness EENTM: no symptoms reported Respiratory: no symptoms reported Gastrointestinal: no symptoms reported Genitourinary: no symptoms reported Musculoskeletal: muscle stiffness, muscle cramps Skin: no symptoms reported Psychiatric/Neurological: No Symptoms Reported All Other Systems Reviewed Negative Unless Noted: Yes Physical Exam Physical Exam Vital Signs Vital Signs - First Documented 07/02/18 10:05 Temp 97.8 Pulse 63 Resp 20 B/P (MAP) 119/79 (92) Pulse Ox 100 O2 Delivery Room Air Capillary Refill : Height, Weight, BMI Height: 5'2.00" Weight: 224lbs. 0.0oz. [id number]; 47.6 BMI Method:Estimated General Appearance: No Apparent Distress, WD/WN Eyes: Bilateral Eye Normal Inspection, Bilateral Eye PERRL HEENT: PERRL/EOMI, TMs Normal, Normal ENT Inspection, Pharynx Normal Neck: Full Range of Motion, Normal Inspection, Non Tender, Supple, Carotid Bruit Respiratory: Chest Non Tender, Lungs Clear, Normal Breath Sounds, No Accessory Muscle Use, No Respiratory Distress Cardiovascular: Regular Rate, Rhythm, No Edema, No Gallop, No JVD, No Murmur, Normal Peripheral Pulses Gastrointestinal: Normal Bowel Sounds, No Organomegaly, No Pulsatile Mass, Non Tender, Soft Back: Normal Inspection, No CVA Tenderness, No Vertebral Tenderness Extremity: Normal Capillary Refill, Normal Inspection, Normal Range of Motion, Non Tender, No Calf Tenderness, No Pedal Edema Neurologic/Psychiatric: Alert, Oriented x3, No Motor/Sensory Deficits, Normal Mood/Affect, Other (global weakness all extremities) Skin: Normal Color, Warm/Dry Lymphatic: No Adenopathy Results Results/Procedures Labs Patient resulted labs reviewed. Assessment/Plan Admission Diagnosis Assessment: 1. Hypoglycemia with Encephalopathy 2. Acute Respiratory Failure with respiratory acidosis due to Encephalopathy s/ p extubation 3. UTI hx 4. History of narcotic abuse and kratom abuse 5. DM Plan: Home meds Insulin Monitor closely Ultram only for pain DNR Admission Status: Inpatient Order (span 2 midnights) Reason for Inpatient Admission: IRF Diagnosis/Problems Diagnosis/Problems (1) Anoxic encephalopathy Status: Chronic (2) Neurocognitive deficits Status: Chronic (3) Altered mental status Status: Chronic Qualifiers: Altered mental status type: unspecified Qualified Codes: R41.82 - Altered mental status, unspecified (4) Hypoglycemia Status: Resolved Resolution Date/Time: 06/06/18 @ 12:44 (5) Acute respiratory failure Status: Resolved Qualifiers: Respiratory failure complication: unspecified whether with hypoxia or hypercapnia Qualified Codes: J96.00 - Acute respiratory failure, unspecified whether with hypoxia or hypercapnia Resolution Date/Time: 07/02/18 @ 22:07 (6) Obesity Status: Chronic Qualifiers: Obesity type: due to excess calories Obesity classification: adult class 2 (BMI 35 - 39.9) Serious obesity comorbidity presence: with serious comorbidity Body mass index: BMI 37.0-37.9 Qualified Codes: E66.01 - Morbid (severe) obesity due to excess calories; Z68.37 - Body mass index (bmi) 37.0- 37.9, adult Post Admission Physician Asses Date seen by provider: Jul 02, 2018 Time seen by provider: 11:30 The preadmission screen agrees with the post admission assessment that the patient is a good candidate for inpatient rehabilitation. The patient will have a comprehensive program of inpatient rehabilitation with a goal of maximizing level of functional independence prior to discharge home with family. The patient will have PT/OT ninety minutes per day, each discipline, five days a week for gait, strengthening, conditioning, balance, ADLs, any patient/family/caregiver training as necessary. Speech therapy to do cognitive assessment and treat as indicated. Rehabilitation nursing to assist with bowel, bladder, skin, wound care, medication administration, pain management. Front End Driver to assist with discharge planning, community reentry. SCD's for DVT prophylaxis. She appears to be well motivated to participate in three hours of therapy a day. She should be able to tolerate three hours of therapy a day from a medical standpoint. She should benefit from the three hours of therapy a day. She has a reasonable discharge plan, reasonable discharge rehabilitation goals and a supportive family. She has various comorbidities that need to be closely monitored with medications and treatments adjusted on a daily basis as needed. These include: Barriers to discharge for this patient who had been independent prior to this are for her to be modified independent to supervision for ADLs and mobility skills prior to discharge home with [family], so as to lessen the burden of the caregivers. Risks for this patient include: 1. Fall 2. Fracture 3. DVT 4. Pulmonary embolism 5. Wound infection 6. Skin breakdown 7. Contractures 8. Poorly controlled pain 9. Urinary retention 10. UTI 11. Respiratory infection 12. Aspiration Estimated Length of Stay: 7 days Prognosis: Rehab prognosis appears good for goal of discharge home with family modified independent to supervision for ADLs and mobility skills. General: Alert, Oriented X3, Cooperative, No Acute Distress HEENT: Atraumatic, PERRLA Neck: Supple, No JVD, No Thyromegaly, +2 Carotid Pulse No Bruit, No LAD Lungs: Clear to Auscultation, Normal Air Movement Heart: Regular Rate, Normal S1, Normal S2 Abdomen: Normal Bowel Sounds, Soft, No Tenderness, No Hepatosplenomegaly, No Masses Extremities: No Clubbing, No Cyanosis, No Edema, Normal Pulses, No Tenderness/ Swelling Skin: No Rashes, No Breakdown, No Significant Lesion Neuro: Sensation Intact, Cranial Nerves 3-12 NL, Other (global weakness all extremities) Psych/Mental Status: Other (delayed responses) ASHLEE MERCADO DO Jul 02, 2018 12:10
[2018-07-02] MEDS: inSUlin ASPART (NovoLOG) 1 UNIT/0.01 ML (CHARGE PER UNIT) SC SCH ×3 (12:51→20:36)
--- NOTE | 2018-07-02 14:02 | NUR ---
Initial Assessment Met with patient to discuss inpatient rehab. Patient reports she lives at home alone in an apartment. Patient could not tell me if there were entry steps into the apartment. She states she has a walker at home. Patient is pleasant and appears cooperative and willing to participate with therapies. There appears to be some cognitive impairment and speech therapy has been ordered for cognitive evaluation. Patient has 2 daughters who, by report, are supportive and involved in her care.
--- NOTE | 2018-07-02 14:13 | Physical Therapy Daily Note ---
PT Daily Note-Current Subjective Pt was in bed and agreed to PT. Pain Numeric Pain Scale: 0-No Pain Location: No Pain Reported Mental Status Patient Orientation: Person Transfers Therapy Code Descriptions/Definitions Functional [place] Measure: 0=Not Assessed/NA 4=Minimal Assistance 1=Total Assistance 5=Supervision or Setup 2=Maximal Assistance 6=Modified [place] 3=Moderate Assistance 7=Complete [place] Therapy Quality Codes: 6 Independent with activity with or without an assistive device 5 Patient requires set up or clean up by helper. Patient completes activity by themselves 4 Supervision or touching assist (CGA). [place] provide cues , steadying assist 3 The helper provides less than half the effort to complete the activity 2 The helper provides more than half the effort to complete the activity 1 Dependent. The helper does all the effort to complete an activity 7 Patient refused to complete or attempt activity 9 The patient did not perform the activity before the current illness or injury 88 Not attempted due to Medical conditions or safety concerns Transfers (B, C, W/C) (FIM): 4 Scootin Rollin Roll Left to Right (QC): 5 Supine to/from Sit: 5 Sit to/from Stand: 4 Sit to Lying (QC): 5 Sit to Stand (QC): 4 Weight Bearing Right Lower Extremity: Right Full Weight Bearing Left Lower Extremity: Left Full Weight Bearing Gait Training Does the Patient Walk?: Yes Gait (FIM): 4 Distance (FIM): 3=150 ft Distance: 300' Walk 10 feet (QC): 4 Walk 50 ft with 2 Turns(QC): 4 Gait Level of Assist: 4 Gait Persons Needed: 1 Gait Assistive Device: FWW Pt tends to walk to the left of the FWW and didn't understand cues to walk in the walker. Then she figured it out by herself. Exercises NuStep Minutes: 12 NuStep Workload: 2 Assessment Current Status: Fair Progress Pt was able to perform bed mobility indep. Pt sit<>stand to FWW requires cues for hand placement. Pt at times will follow cues and at times does not follow cues. Pt was able to amb a total of 300' 150'x2 with CGA and cues for safety with the FWW. Pt performed on nustep with no complaints. Pt requested to return to room and use bathroom. Pt is indep with bathroom skills and CGA with sit<> stand from toile to FWW. Pt became emotional about wanting to see her daughters. Nurse reported she would try to call daughter for pt. Pt is in bed with all needs met. PT Short Term Goals Short Term Goals Time Frame: Jul 09, 2018 Transfers (B,C,W/C) (FIM): 6 Gait (FIM): 5 Gait Distance Comment: 200' Gait Level of Assist: 5 Gait Assistive Device: FWW PT Senior Care Goals Ict Sales Assistant Goals PT Ict Sales Assistant Goals Time Frame: Jul 23, 2018 Transfers (B,C,W/C) (FIM): 6 Sit to Lying (QC): 6 Lying-Sitting on Side/Bed(QC): 6 Sit to Stand (QC): 6 Rollin Roll Left to Right (QC): 6 Chair/Aax-qu-Kxvlm Xfer(QC): 6 Car Transfer (QC): 6 Gait (FIM): 6 Distance: 300' Walk 10 feet (QC): 6 Walk 10ft-Uneven Surface(QC): 6 Walk 50ft with 2 Turns (QC): 6 Walk 150 ft (QC): 6 Gait Level of Assist: 6 Gait Assistive Device: FWW Stairs (FIM): 5 # of Steps: 12 1 Step (curb) (QC): 4 4 Steps (QC): 4 12 Steps (QC): 4 Stairs Level Of Assist: 5 PT Plan Problem List Problem List: Activity Tolerance, Functional Strength, Safety, Balance, Gait, Transfer, Bed Mobility Treatment/Plan Treatment Plan: Continue Plan of Care Treatment Plan: Bed Mobility, Education, Functional Activity Carlos, Functional Strength, Group Therapy, Gait, Safety, Therapeutic Exercise, Transfers Treatment Duration: Jul 23, 2018 Frequency: At least 5 of 7 days/Wk (IRF) Estimated Hrs Per Day: 1.5 hours per day Patient and/or Family Agrees t: Yes Time/GCodes Time In: 1301 Time Out: 1331 Total Billed Treatment Time: 30 Total Billed Treatment 1 visit FA 15 min GT 15 min LISA NARANJO PT Jul 02, 2018 14:13
--- NOTE | 2018-07-02 14:39 | ST Cognitive Linguistic Eval ---
Speech Evaluation-General Medical Diagnosis COPD, DM, HTN, Renal Insufficiency, Smoking Onset Date: Jul 02, 2018 Therapy Diagnosis Therapy Diagnosis: Cognitive-Communication Medical History Pertinent Medical History: COPD, DM, HTN, Renal Insufficiency, Smoking Reviewed History: Yes Speech PLF-Current Status Prior Level of Function Patient lived at home and was independent with daily tasks. Subjective Patient was pleasant and attentive during the evaluation process. Language Eval: Auditory Comprehends Simple Yes/No Ques: Functional Indent/Objects Multiple Joyce: Functional Ident/Pics in Multiple Joyce: Functional Follows 1-Step Commands: Functional Follows Complex Directions: Mild Follows General Conversations: Mild Language Eval: Verbal Language Completes Spontaneous Greeting: Functional Produces Auto, Serial Info: Functional Imitates Simple Words/Phrases: Functional Word Finding: Mild Requests Basic Needs: Functional States Basic Personal Info: Mild Expresses Complex Ideas: Moderate Cognitive Patient Orientation Patient is oriented to self and place only. Objective Cognitive Domain Attention: WNL Memory: Moderate Problem Solving: Moderate Executive Functions: Moderate Objective Formal/Standardized Tests [facility] Cognitive/Communication Results Memory: Immediate 3/3, Delayed with cues 1/3, Orientation: 2/4, Problem Solving : Simple 4/5 Complex 2/5, Auditory Processin/3 Oral Motor/Speech Production Mild deficit noted Impression Patient is a pleasant 52 year old female. She was admitted to the ARU to regain strength prior to returning home. She was a poor historian as to her medical state. During the evaluation process she was noted to self correct frequently. She has several areas of deficits noted including memory, problem solving, orientation and auditory processing. Communication/Social Cognition Comprehension: 3 Expression: 3 Social Interaction: 5 Problem Solvin Memory: 2 Speech Patient Assess Expression of Ideas/Wants: Exhibits (3) Understanding Verbal Content: Sometimes Understands(2) Brief Interview-Mental Status: Yes Repetition of Three Words: Three (3) Temporal Orientation: Year: Correct (3) Temporal Orientation: Month: Accurate within 5 days(2) Temporal Orientation: Day: Correct (1) Recall : Wear to say "Sock": No, could not recall (0) Recall : Color: Yes, no cue required (2) Recall : Bed: No, could not recall (0) Memory/Recall Ability: Current season, That he or she is in a hsp/hsp unit Speech Short Term Goals Short Term Goals Short Term Goals 1) Patient will complete memory tasks related to her self at 80% or greater. 2) Patient will complete problem solving tasks related to daily tasks at 80% or greater. 3) Patient will recall new information presented related to personal safety within her immediate environment at 80% or greater. Speech Penitentiary Goals Videogame Designer Goals Patient will improve her overall cognitive-communication status for safety and independence. Speech-Plan Patient/Family Goals Patient/Family Goals: Patient plans to return home post rehab in the ARU and SNF. Treatment Plan Speech Therapy Treatment Plan: Continue Plan of Care Patient is expected to make gains in cognitive communication status as a result of skilled ST services. Treatment Duration: Jul 09, 2018 Frequency: 5 times per week Estimated Hrs Per Day: .5 hour per day Rehab Potential: Fair Barriers to Learning: Patient has multiple deficits. Pt/Family Agrees to Plan: Yes Safety Risks/Education Teaching Recipient: Patient Teaching Methods: Discussion Response to Teaching: Verbalize Understanding Education Topics Provided: Safety within her room. Time Speech Therapy Time In: 10:30 Speech Therapy Time Out: 10:45 Total Billed Time: 15 Billed Treatment Time 1, MAURI Santoyo Jul 02, 2018 14:39
--- NOTE | 2018-07-02 14:42 | Occupational Therapy Eval ---
OT Evaluation-General/PLF Medical Diagnosis Admission Date Jul 02, 2018 at 09:40 Medical Diagnosis: Encephalopathy, anoxia Onset Date: Jul 02, 2018 Therapy Diagnosis Therapy Diagnosis: Weakness, Decreased ADL skills Height/Weight Height (Feet): 5 Height (Inches): 2.00 Weight (Pounds): 224 Weight (Ounces): 0.0 Weight Bear Status Weight Bearing Restriction: Weight Bearing/Tolerated Referral Physician: Dr. Mercado Referral Reason: Activity Tolerance, Self Care, Evaluation/Treatment, Strengthening/ROM Medical History Pertinent Medical History: COPD, DM, HTN, Renal Insufficiency, Smoking Additional Medical History Drug abuse, anxiety, chronic back pain, intubation, pancreatitis, ORIF right ankle Current History Pt. in [place] following anoxic incident. Pt. intubated. Demonstrates difficulty with speech. Reviewed History: Yes Social History Home: Apartment Current Living Status: Alone Entry Into Home: Level Entry Pt. lives on 4th floor of the [facility]. ADL-Prior Level of Function Therapy Code Descriptions/Definitions Functional [place] Measure: 0=Not Assessed/NA 4=Minimal Assistance 1=Total Assistance 5=Supervision or Setup 2=Maximal Assistance 6=Modified [place] 3=Moderate Assistance 7=Complete [place] Therapy Quality Codes: 6 Independent with activity with or without an assistive device 5 Patient requires set up or clean up by helper. Patient completes activity by themselves 4 Supervision or touching assist (CGA). [place] provide cues , steadying assist 3 The helper provides less than half the effort to complete the activity 2 The helper provides more than half the effort to complete the activity 1 Dependent. The helper does all the effort to complete an activity 7 Patient refused to complete or attempt activity 9 The patient did not perform the activity before the current illness or injury 88 Not attempted due to Medical conditions or safety concerns Functional Abilities and Goals: Independent: Patient completed the activities by him/herself, with or without an assistive device, with no assistance from a helper. Needed Some Help: Patient needed partial assistance from another person to complete activities. Dependent: A helper completed the activities for the patient. Unknown: Not Applicable: ADL PLOF Comments Pt. states that she "thinks" she was independent with daily skills such as bathing and dressing. States that she does not drive, but is able to cook and clean. States that her daughters assist her with grocery shopping. Pt. does not remember if she has a walk in shower or tub/shower combo. Pt. uses walker at home. Self Care: Independent Functional Cognition: Unknown Drive Self: No OT Current Status Subjective Pt. does not report pain. However, becomes very tearful at the mention of her daughters. States, "I don't want to be so dependent on them." Appearance Pt. is seen twice this date for full evaluation. Pt. alert and pleasant. Has difficulty at times getting her point across. Mental Status/Objective Patient Orientation: Person Current Glasses/Contacts: Yes Hand Dominance: Right Upper Extremity ROM WFL Upper Extremity Strength WFL ADL-Treatment Therapy Code Descriptions/Definitions Functional [place] Measure: 0=Not Assessed/NA 4=Minimal Assistance 1=Total Assistance 5=Supervision or Setup 2=Maximal Assistance 6=Modified [place] 3=Moderate Assistance 7=Complete [place] Therapy Quality Codes: 6 Independent with activity with or without an assistive device 5 Patient requires set up or clean up by helper. Patient completes activity by themselves 4 Supervision or touching assist (CGA). [place] provide cues , steadying assist 3 The helper provides less than half the effort to complete the activity 2 The helper provides more than half the effort to complete the activity 1 Dependent. The helper does all the effort to complete an activity 7 Patient refused to complete or attempt activity 9 The patient did not perform the activity before the current illness or injury 88 Not attempted due to Medical conditions or safety concerns Eating (FIM): 5 OT Short Term Goals Short Term Goals Transfers (B,C,W/C) (FIM): 6 1=Demonstrate adherence to instructed precautions during ADL tasks. 2=Patient will verbalize/demonstrate understanding of assistive devices/ modifications for ADL. 3=Patient will improve strength/tolerance for activity to enable patient to perform ADL's. OT Adviser Sales Goals Adviser Sales Goals 1=Demonstrate adherence to instructed precautions during ADL tasks. 2=Patient will verbalize/demonstrate understanding of assistive devices/ modifications for ADL. 3=Patient will improve strength/tolerance for activity to enable patient to perform ADL's. OT Education/Plan Treatment Plan/Plan of Care Patient would benefit from OT for education, treatment and training to promote independence in ADL's, mobility, safety and/or upper extremity function for ADL' s. Rehab Potential: AARON Cordoba OT Jul 02, 2018 14:42
--- NOTE | 2018-07-02 14:54 | Occupational Therapy Eval ---
OT Evaluation-General/PLF Medical Diagnosis Admission Date Jul 02, 2018 at 09:40 Medical Diagnosis: Encephalopathy, anoxia Onset Date: Jul 02, 2018 Therapy Diagnosis Therapy Diagnosis: Decreased ADL skills Height/Weight Height (Feet): 5 Height (Inches): 2.00 Weight (Pounds): 224 Weight (Ounces): 0.0 Weight Bear Status Weight Bearing Restriction: Weight Bearing/Tolerated Referral Physician: Dr. Mercado Referral Reason: Activity Tolerance, Self Care, Evaluation/Treatment, Strengthening/ROM Medical History Pertinent Medical History: COPD, DM, HTN, Renal Insufficiency, Smoking Additional Medical History Drug abuse, anxiety, chronic back pain, intubation, pancreatitis, ORIF right ankle Current History Pt. had anoxic event due to accidental overdose. Came to this rehab from [facility]. Social History Home: Apartment Current Living Status: Alone Entry Into Home: Level Entry ADL-Prior Level of Function Therapy Code Descriptions/Definitions Functional [place] Measure: 0=Not Assessed/NA 4=Minimal Assistance 1=Total Assistance 5=Supervision or Setup 2=Maximal Assistance 6=Modified [place] 3=Moderate Assistance 7=Complete [place] Therapy Quality Codes: 6 Independent with activity with or without an assistive device 5 Patient requires set up or clean up by helper. Patient completes activity by themselves 4 Supervision or touching assist (CGA). [place] provide cues , steadying assist 3 The helper provides less than half the effort to complete the activity 2 The helper provides more than half the effort to complete the activity 1 Dependent. The helper does all the effort to complete an activity 7 Patient refused to complete or attempt activity 9 The patient did not perform the activity before the current illness or injury 88 Not attempted due to Medical conditions or safety concerns Functional Abilities and Goals: Independent: Patient completed the activities by him/herself, with or without an assistive device, with no assistance from a helper. Needed Some Help: Patient needed partial assistance from another person to complete activities. Dependent: A helper completed the activities for the patient. Unknown: Not Applicable: Self Care: Independent Functional Cognition: Unknown Drive Self: No OT Current Status Subjective Pt. does not report pain, but does become tearful after daughters are mentioned. Appearance Pt. alert and willing to work with therapist. Pt. seen twice for fully rehab evaluation. Mental Status/Objective Patient Orientation: Person Current Glasses/Contacts: Yes Hand Dominance: Right Upper Extremity ROM WFL Upper Extremity Strength WFL ADL-Treatment Eating (FIM): 5 Eating (QC): 5 Grooming (FIM): 5 (SBA to stand at sink and brush teeth and hair.) Oral Hygiene (QC): 4 Bathing (FIM): 5 (SBA to shower. Pt. able to wash all parts.) Shower/Bathe Self (QC): 4 Upper Body Dressing (FIM): 5 Upper Body Dressing (QC): 4 Lower Body Dressing (FIM): 5 (SBA to don brief and slipper socks.) Lower Body Dressing (QC): 4 On/Off Footwear (QC): 4 Transfers (B, C, W/C) (FIM): 4 (CGA to ambulate and transfer with walker.) Shower Transfer (FIM): 4 Other Treatments After ADLs, pt. ambulated to therapy gym. Participated in visual perceptual task with replicating visual structure while the original structure was in front of her. Pt. had great difficulty doing this. Unable to replicate or understand what was asked of her. OT got pt's glasses for her, but this was still difficult. All needs met back in room. Education OT Patient Education: Correct positioning, Modified ADL techniques, Progress toward Goal/Update tx plan, Purpose of tx/functional activities, Reviewed precautions, Rehab process, Transfer techniques Teaching Recipient: Patient Teaching Methods: Demonstration, Discussion Response to Teaching: Verbalize Understanding, Return Demonstration OT Short Term Goals Short Term Goals Transfers (B,C,W/C) (FIM): 6 1=Demonstrate adherence to instructed precautions during ADL tasks. 2=Patient will verbalize/demonstrate understanding of assistive devices/ modifications for ADL. 3=Patient will improve strength/tolerance for activity to enable patient to perform ADL's. OT Nursing Home Goals Air Conditioning Technician Goals Time Frame: Jul 16, 2018 Eating (FIM): 7 Eating (QC): 6 Groomin Oral Hygiene (QC): 6 Bathing(FIM): 5 Shower/Bathe Self (QC): 5 Upper Body Dressing(FIM): 6 Upper Body Dressing (QC): 6 Lower Body Dressing(FIM): 6 Lower Body Dressing (QC): 6 On/Off Footwear (QC): 6 Toileting(FIM): 6 Toileting Hygiene (QC): 6 Transfers (B,C,W/C) (FIM): 6 Toilet/Commode Transfer(FIM): 6 Toilet/Commode Transfer (QC): 6 Shower Transfer(FIM): 6 Additional Goals: 1-Demonstrate ADL Tasks, 2-Verbalize Understanding, 3- ImproveStrength/Carlos 1=Demonstrate adherence to instructed precautions during ADL tasks. 2=Patient will verbalize/demonstrate understanding of assistive devices/ modifications for ADL. 3=Patient will improve strength/tolerance for activity to enable patient to perform ADL's. OT Education/Plan Problem List/Assessment Assessment: Decreased Activ Tolerance, Impaired Cognition, Impaired I ADL's, Impaired Self-Care Skills Discharge Recommendations Plan/Recommendations: Continue POC Therapy D/C Recommendations: Home w/ Family Support, Occupational Therapy Home Care, Scheduled Assistance Comment Will determine equipment needs from daughters when present. Treatment Plan/Plan of Care Treatment,Training & Education: Yes Patient would benefit from OT for education, treatment and training to promote independence in ADL's, mobility, safety and/or upper extremity function for ADL' s. Plan of Care: ADL Retraining, Functional Mobility, Group Exercise/Act as Ind, UE Funct Exercise/Act Treatment Duration: Jul 16, 2018 Frequency: At least 5 of 7 days/Wk (IRF) Estimated Hrs Per Day: 1.5 hours per day Agreement: Yes Rehab Potential: Good Time/GCodes Start Time: 10:00 Stop Time: 14:30 Total Time Billed (hr/min): 90 Billed Treatment Time [id number] 1, EVM x 15minutes, FA x 15minutes [id number] 1, ADL x 45minutes, FA x 15minutes AARON PRAJAPATI OT Jul 02, 2018 14:53
[2018-07-02 17:03] VITALS: BP 116/78
--- NOTE | 2018-07-02 18:30 | NUR ---
Pts 2 dgtrs came to visit pt this evng, along w 2 grandchildren. Pt was very pleased to see them, as were they. The dgtrs pleased that pt recognizes them, & the grandchildren, state that she didn't just as recent as a few days ago, while at [facility]. Dgtrs voice that pt is much more alert, & cognizant now than she had been. They state that pt isn't going to go back to her apt to live; that at discharge she is going to live w [place]. They state that [place] has been, "the acting POA", that they are in the process of getting this accomplished, & would like to enlist the help of [employer] to do this. State that pt has been receiving 10 hrs of SKIL now, but, that she will need that increased. They state that they are so pleased that pt isn't having any back pain, as she has had chronic back pain d/t 3 herniated discs, spinal stenosis. They state that that is where she got started taking opioids. 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 Also state that pt was a heavy smoker, state that she was probably smoking before her B/S got low, & passed out at home, but, since all of this, that she doesn't remember that she smoked, & hasn't expressed any desire to smoke, & they are happy about that. Dgtrs & grandchildren appear very supportive, & attentive to pt, & pt was extremely happy to see them. Discussed w dgtrs the bedrails, call lt, & bed/chair alarm being used as fall precaution, since pt fell at prior facility, although pt has no memory of it now.
[2018-07-02] MEDS: ACETAMINOPHEN 500 MG TAB (TYLENOL) PO PRN (20:37)
[2018-07-03] MEDS: inSUlin ASPART (NovoLOG) 1 UNIT/0.01 ML (CHARGE PER UNIT) SC SCH ×4 (05:22→21:19)
[2018-07-03 05:23] VITALS: BP 117/70
[2018-07-03] MEDS ORDERED: FLU QUADRIvalent (5+ YOA) 2018-2019 (AFLURIA) 0.5 ML IM ONE (06:30)
[2018-07-03 10:19] LABS: HEMOGLOBIN 12.1 G/DL (11.5-16.0); MEAN PLATELET VOLUME 10.3 FL (7.4-10.4); RED CELL DISTRIBUTION WIDTH 14.9 % (10.0-14.5); WHITE BLOOD COUNT 8.7 10^3/uL (4.3-11.0)
--- NOTE | 2018-07-03 10:28 | NUR ---
Briseyda is a 52 yo female present on the ARU d/t an anoxic brain injury. Briseyda is A&O X4 today but is very emotional due to family not being here. Briseyda denies pain at this time. Briseyda consulted to receive the flu vaccine this morning and this was administered without issue. No further issues are noted at this time, this nurse will continue to monitor the patient.
[2018-07-03 10:46] LABS: ALBUMIN 3.7 GM/DL (3.2-4.5); BILIRUBIN,TOTAL 0.7 MG/DL (0.1-1.0); CALCIUM 9.7 MG/DL (8.5-10.1); CREATININE SERUM 1.28 MG/DL (0.60-1.30); POTASSIUM 4.2 MMOL/L (3.6-5.0); TOTAL PROTEIN 8.2 GM/DL (6.4-8.2)
--- NOTE | 2018-07-03 11:50 | PM&R Progress Note ---
Subjective This was a face to face visit with the patient. Date Seen by Provider: Jul 03, 2018 Time Seen by Provider: 09:15 Subjective/Events-last exam Patient was seen in her room in bed Did have a weeping episode earlier Doing very well and improve cognition Less word finding issues Denies any pain Working with therapy and participating in everything that is required of her Shows great appreciation for all of the health care providers Review of Systems Neurological: Weakness, Incoordination, Change in speech Objective Physician Exam Last Set of Vital Signs Vital Signs Date Time Temp Pulse Resp B/P (MAP) Pulse Ox O2 Delivery O2 Flow Rate FiO2 07/03/18 09:54 98 Room Air 07/03/18 05:23 97.8 74 18 117/70 (86) Capillary Refill : I&O Intake and Output 07/03/18 00:00 Intake Total 650 ml Balance 650 ml Intake Oral 650 ml # Voids 3 # Bowel Movements 1 Daily Weight Change Yes, 2-13 lbs General: Alert, Oriented X3, Cooperative, No Acute Distress HEENT: Atraumatic, PERRLA Neck: Supple, No JVD, No Thyromegaly, +2 Carotid Pulse No Bruit, No LAD Lungs: Clear to Auscultation, Normal Air Movement Heart: Regular Rate, Normal S1, Normal S2 Abdomen: Normal Bowel Sounds, Soft, No Tenderness, No Hepatosplenomegaly, No Masses Extremities: No Clubbing, No Cyanosis, No Edema, Normal Pulses, No Tenderness/ Swelling Skin: No Rashes, No Breakdown, No Significant Lesion Neuro: Sensation Intact, Cranial Nerves 3-12 NL, Other (global weakness all extremities) Psych/Mental Status: Other (delayed responses) Results Lab Data Laboratory Tests 07/02/18 11:07: Glucometer 159H 07/02/18 16:40: Glucometer 256H 07/02/18 20:36: Glucometer 156H 07/03/18 05:19: Glucometer 133H 07/03/18 10:10: White Blood Count 8.7, Red Blood Count 4.12L, Hemoglobin 12.1, Hematocrit 37, Mean Corpuscular Volume 89, Mean Corpuscular Hemoglobin 29, Mean Corpuscular Hemoglobin Concent 33, Red Cell Distribution Width 14.9H, Platelet Count 280, Mean Platelet Volume 10.3, Sodium Level 138, Potassium Level 4.2, Chloride Level 105, Carbon Dioxide Level 23, Anion Gap 10, Blood Urea Nitrogen 15, Creatinine 1.28, Estimat Glomerular Filtration Rate 44, BUN/Creatinine Ratio 12 , Glucose Level 192H, Calcium Level 9.7, Corrected Calcium 9.9, Total Bilirubin 0.7, Aspartate Amino Transf (AST/SGOT) 29, Alanine Aminotransferase (ALT/SGPT) 20, Alkaline Phosphatase 75, Total Protein 8.2, Albumin 3.7 07/03/18 10:49: Glucometer 217H Current Funtional Status Continue aggressive treatment Appreciate primary care provider Dr. Haider for providing medical management Continue treatment plan Assessment/Plan Assessment and Plan (1) Anoxic encephalopathy Status: Chronic (2) Neurocognitive deficits Status: Chronic (3) Altered mental status Qualifiers: Qualified Codes: R41.82 - Altered mental status, unspecified Status: Chronic (4) Hypoglycemia Status: Resolved (5) Acute respiratory failure Qualifiers: Qualified Codes: J96.00 - Acute respiratory failure, unspecified whether with hypoxia or hypercapnia Status: Resolved (6) Obesity Qualifiers: Qualified Codes: E66.01 - Morbid (severe) obesity due to excess calories; Z68.37 - Body mass index (bmi) 37.0-37.9, adult Status: Chronic Co-Morbidities that are continuing to impact the rehab process: (include details ) SOHAIL HUBER DO Jul 03, 2018 11:50
--- NOTE | 2018-07-03 11:55 | Physical Therapy Daily Note ---
PT Daily Note-Current Subjective Patient in therapy gym pre tx, agrees to PT, has no complaints of pain. Appearance Patient in bed post tx with nurse call, phone, tray, bed alarm on. Mental Status Patient Orientation: Person, Unable to Assess, Place Transfers Therapy Code Descriptions/Definitions Functional [place] Measure: 0=Not Assessed/NA 4=Minimal Assistance 1=Total Assistance 5=Supervision or Setup 2=Maximal Assistance 6=Modified [place] 3=Moderate Assistance 7=Complete [place] Therapy Quality Codes: 6 Independent with activity with or without an assistive device 5 Patient requires set up or clean up by helper. Patient completes activity by themselves 4 Supervision or touching assist (CGA). [place] provide cues , steadying assist 3 The helper provides less than half the effort to complete the activity 2 The helper provides more than half the effort to complete the activity 1 Dependent. The helper does all the effort to complete an activity 7 Patient refused to complete or attempt activity 9 The patient did not perform the activity before the current illness or injury 88 Not attempted due to Medical conditions or safety concerns Transfers (B, C, W/C) (FIM): 5 Scootin Rollin Supine to/from Sit: 5 Sit to/from Stand: 5 Bed to/from Chair: 5 Occasional cues for safety. Weight Bearing Right Lower Extremity: Right Full Weight Bearing Left Lower Extremity: Left Full Weight Bearing Gait Training Gait (FIM): 5 Distance: 200'x2, 150'x2 Gait Level of Assist: 5 Gait Persons Needed: 1 Gait Assistive Device: FWW Patient ambulates slowly but steady, has a tendency to get out from behind her walker and walk with it too far out in front. Exercises LAQ alternating for 5 min NuStep Minutes: 15 NuStep Workload: 5 Treatments bed mobility, transfers, ambulation, functional strengthening, patient was toileted once and she was able to clean herself without assist and get her pants down and up without assist Assessment Current Status: Fair Progress improving endurance PT Short Term Goals Short Term Goals Time Frame: Jul 09, 2018 Transfers (B,C,W/C) (FIM): 6 Gait (FIM): 5 Gait Distance Comment: 200' Gait Level of Assist: 5 Gait Assistive Device: FWW PT Alf Goals Gm Goals PT Alf Goals Time Frame: Jul 23, 2018 Transfers (B,C,W/C) (FIM): 6 Sit to Lying (QC): 6 Lying-Sitting on Side/Bed(QC): 6 Sit to Stand (QC): 6 Rollin Roll Left to Right (QC): 6 Chair/[id number] Xfer(QC): 6 Car Transfer (QC): 6 Gait (FIM): 6 Distance: 300' Walk 10 feet (QC): 6 Walk 10ft-Uneven Surface(QC): 6 Walk 50ft with 2 Turns (QC): 6 Walk 150 ft (QC): 6 Gait Level of Assist: 6 Gait Assistive Device: FWW Stairs (FIM): 5 # of Steps: 12 1 Step (curb) (QC): 4 4 Steps (QC): 4 12 Steps (QC): 4 Stairs Level Of Assist: 5 PT Plan Problem List Problem List: Activity Tolerance, Functional Strength, Safety, Balance, Gait, Transfer Treatment/Plan Treatment Plan: Continue Plan of Care Treatment Plan: Bed Mobility, Education, Functional Activity Carlos, Functional Strength, Group Therapy, Gait, Safety, Therapeutic Exercise, Transfers Treatment Duration: Jul 23, 2018 Frequency: At least 5 of 7 days/Wk (IRF) Estimated Hrs Per Day: 1.5 hours per day Patient and/or Family Agrees t: Yes Safety Risks/Education Patient Education: Gait Training, Transfer Techniques, Correct Positioning, Safety Issues Teaching Recipient: Patient Teaching Methods: Demonstration, Discussion Response to Teaching: Reinforcement Needed Time/GCodes Time In: 1100 Time Out: 1200 Total Billed Treatment Time: 60 Total Billed Treatment 1 visit EX 20' FA 10' GT 30' SHEA LOZOYA PT Jul 03, 2018 11:55
--- NOTE | 2018-07-03 11:56 | PM&R Progress Note ---
Subjective This was a face to face visit with the patient. Date Seen by Provider: Jul 03, 2018 Time Seen by Provider: 09:15 Subjective/Events-last exam Patient was seen in Objective Physician Exam Last Set of Vital Signs Vital Signs Date Time Temp Pulse Resp B/P (MAP) Pulse Ox O2 Delivery O2 Flow Rate FiO2 07/03/18 09:54 98 Room Air 07/03/18 05:23 97.8 74 18 117/70 (86) Capillary Refill : I&O Intake and Output 07/03/18 00:00 Intake Total 650 ml Balance 650 ml Intake Oral 650 ml # Voids 3 # Bowel Movements 1 Daily Weight Change Yes, 2-13 lbs General: Alert, Oriented X3, Cooperative, No Acute Distress HEENT: Atraumatic, PERRLA Neck: Supple, No JVD, No Thyromegaly, +2 Carotid Pulse No Bruit, No LAD Lungs: Clear to Auscultation, Normal Air Movement Heart: Regular Rate, Normal S1, Normal S2 Abdomen: Normal Bowel Sounds, Soft, No Tenderness, No Hepatosplenomegaly, No Masses Extremities: No Clubbing, No Cyanosis, No Edema, Normal Pulses, No Tenderness/ Swelling Skin: No Rashes, No Breakdown, No Significant Lesion Neuro: Sensation Intact, Cranial Nerves 3-12 NL, Other (global weakness all extremities) Psych/Mental Status: Other (delayed responses) Results Lab Data Laboratory Tests 07/02/18 11:07: Glucometer 159H 07/02/18 16:40: Glucometer 256H 07/02/18 20:36: Glucometer 156H 07/03/18 05:19: Glucometer 133H 07/03/18 10:10: White Blood Count 8.7, Red Blood Count 4.12L, Hemoglobin 12.1, Hematocrit 37, Mean Corpuscular Volume 89, Mean Corpuscular Hemoglobin 29, Mean Corpuscular Hemoglobin Concent 33, Red Cell Distribution Width 14.9H, Platelet Count 280, Mean Platelet Volume 10.3, Sodium Level 138, Potassium Level 4.2, Chloride Level 105, Carbon Dioxide Level 23, Anion Gap 10, Blood Urea Nitrogen 15, Creatinine 1.28, Estimat Glomerular Filtration Rate 44, BUN/Creatinine Ratio 12 , Glucose Level 192H, Calcium Level 9.7, Corrected Calcium 9.9, Total Bilirubin 0.7, Aspartate Amino Transf (AST/SGOT) 29, Alanine Aminotransferase (ALT/SGPT) 20, Alkaline Phosphatase 75, Total Protein 8.2, Albumin 3.7 07/03/18 10:49: Glucometer 217H Assessment/Plan Assessment and Plan (1) Anoxic encephalopathy Status: Chronic (2) Neurocognitive deficits Status: Chronic (3) Altered mental status Qualifiers: Qualified Codes: R41.82 - Altered mental status, unspecified Status: Chronic (4) Hypoglycemia Status: Resolved (5) Acute respiratory failure Qualifiers: Qualified Codes: J96.00 - Acute respiratory failure, unspecified whether with hypoxia or hypercapnia Status: Resolved (6) Obesity Qualifiers: Qualified Codes: E66.01 - Morbid (severe) obesity due to excess calories; Z68.37 - Body mass index (bmi) 37.0-37.9, adult Status: Chronic Co-Morbidities that are continuing to impact the rehab process: (include details ) SOHAIL HUBER DO Jul 03, 2018 11:56
--- NOTE | 2018-07-03 11:58 | Individualized Plan of Care ---
Individualized Plan of Care Rehab Nursing IPOC Order Admission Date Jul 02, 2018 at 09:40 Current Orders Orders Admission Order(Inpt,Obs,Sdc) (07/02/18 09:13) Sequential Compression Device 08,20 (07/02/18 09:13) Marine Geologist-Inpt Rehab Con (07/02/18 09:13) Rehab Nursing Orders-Ipoc (07/02/18 09:13) Physical Therapy Rehab Orders (07/02/18 09:13) Occupational Therapy Rehab Ord (07/02/18 09:13) Speech Therapy Rehab Orders (07/02/18 09:13) Cbc No Diff (07/02/18 09:13) Comprehensive Metabolic Panel (07/02/18 09:13) Intake & Output 06,14,22 (07/02/18 09:13) Precautions (Aru) (07/02/18 09:13) Daily Weight 06 (07/02/18 09:13) Weekly Weight (Lbs) WEEK (07/02/18 09:13) Rehab-Intensity Of Therapy (07/02/18 09:13) Accucheck Achs ACHS (07/02/18 09:13) Insulin Aspart (Novolog) (Novolog (Charg (07/02/18 11:00) Consult Physician (07/02/18 09:13) Code/Resuscitation (07/02/18 09:13) Initiate Admission Nursing Pro .admission (07/02/18 09:13) Acetaminophen Tablet (Tylenol Tablet) (07/02/18 09:15) Calcium Carbonate Chew Tablet (Antacid C (07/02/18 09:15) Diphenhydramine Tablet (Benadryl Tablet) (07/02/18 09:15) Docusate Sodium Capsule (Colace Capsule) (07/02/18 09:15) Bisacodyl Suppository (Dulcolax Supposit (07/02/18 09:15) Ondansetron Oral Dissolve Tab (Zofran (07/02/18 09:15) Polyethylene Glycol Powder Pkt (Miralax (07/02/18 09:15) Loperamide Capsule (Imodium Capsule) (07/02/18 09:15) Admission Arrival Bed Request (07/02/18 09:54) Tramadol Tablet (Ultram Tablet) (07/02/18 10:15) Patient Visit (07/02/18 ) Pt Eval Moderate Complexity (07/02/18 ) Gait Training, Ea 15 Min (07/02/18 ) Exercise Therap, Ea 15 Min (07/02/18 ) Patient Visit (07/02/18 ) Speech Sound Lang Comp (07/02/18 ) Patient Visit (07/02/18 ) Gait Training, Ea 15 Min (07/02/18 ) Functional Activities, Ea 15 (07/02/18 ) Cho 60g/M 1snack (16-2000 Juan Luis) (07/03/18 Breakfast) Ambulate 08,12,20 (07/02/18 22:22) Dvt/Vte Risk - Notifiy Physici 08 (07/02/18 22:22) Code/Resuscitation (07/02/18 22:38) Influenza Quad (5+Yoa) 2017- (Afluria (07/03/18 06:30) Enoxaparin Injection (Lovenox Injection) (07/03/18 20:00) Patient Visit (07/03/18 ) Gait Training, Ea 15 Min (07/03/18 ) Functional Activities, Ea 15 (07/03/18 ) Exercise Therap, Ea 15 Min (07/03/18 ) Insulin Determir (Per Unit) (Levemir (Pe (07/03/18 21:00) Patient Visit (07/03/18 ) Patient Visit (07/03/18 ) Dysphagia Evaluation Std (07/03/18 ) Rehab Nursing Orders: Ongoing Assess. of Cognitive Status, Ongoing Assess. of Function Status, Disease Management & Educaiton, Fall Prevention, Fluid/ Electrolyte/Nutrition Mgmt, Management of Risks & Complications, Management of Skin Intergrity, Nutrition Management, Patient/Family Support, Safety Management Intensity of Therapy to be met Patient to be seen: Min.3h per day/5 of 7d PT IPOC Problem List: Activity Tolerance, Functional Strength, Safety, Balance, Gait, Transfer Treatment Plan: Continue Plan of Care Bed Mobility, Education, Functional Activity Carlos, Functional Strength, Group Therapy, Gait, Safety, Therapeutic Exercise, Transfers Treatment Duration: Jul 23, 2018 Frequency: At least 5 of 7 days/Wk (IRF) Estimated Hrs Per Day: 1.5 hours per day OT IPOC Problems: Decreased Activ Tolerance, Impaired Cognition, Impaired I ADL's, Impaired Self-Care Skills OT Treatment, Training and Edu: Yes Plan of Care: ADL Retraining, Functional Mobility, Group Exercise/Act as Ind, UE Funct Exercise/Act Treatment Duration: Jul 16, 2018 Frequency: At least 5 of 7 days/Wk (IRF) Estimated Hrs Per Day: 1.5 hours per day [facility] Speech Therapy Treatment Plan: Continue Plan of Care Treatment Duration: Jul 09, 2018 Frequency: 5 times per week Estimated Hrs Per Day: .5 hour per day Marine Geologist/Case Mgmt Marine Geologist/Case Managemen: Discharge Planning Dietitian/Field Secretary Dietitian/Field Secretary to monitor nutritional status and make changes and/or recommendations as needed and work with speech pathology on dietary upgrades as the occur. Physician IP Medical Issues being managed closely and that require the 24 hour availability of a physician: Glucose monitoring given hypoglycemia episode caused anoxic brain injury when found down Medical Issues: Falls Precautions, Fluid/Electrolyte/Nutrition Balance, Pain Management Brief Synthesis of Preadmission Screen, Post-Admission Evaluation, and Therapy Evaluations: Aggressive therapies for return to ambulation and independent living Medical Prognosis: Good Anticipated Length of Stay: 10 days SOHAIL HUBER DO Jul 03, 2018 11:58
--- NOTE | 2018-07-03 12:39 | Occupational Ther Daily Note ---
OT Current Status-Daily Note Subjective Pt alert, ambulating around room. Pt weepy with conversations. Did agree to therapy. Mental Status/Objective Patient Orientation: Person, Place, Time, Situation Therapy Code Descriptions/Definitions Functional [place] Measure: 0=Not Assessed/NA 4=Minimal Assistance 1=Total Assistance 5=Supervision or Setup 2=Maximal Assistance 6=Modified [place] 3=Moderate Assistance 7=Complete [place] ADL-Treatment Pt has difficulty with word finding and explaining wants and needs. Eventually will get point across with some cues. Pt wanted to take shower, but did not want anyone to see her taking a shower. After set up in shower, pt able to complete shower with close supervision. Pt donned/doffed clothing by self. Some verbal cues needed to initiate next step in sequence. Pt groomed self standing at sink with supervision. Therapy Code Descriptions/Definitions Functional [place] Measure: 0=Not Assessed/NA 4=Minimal Assistance 1=Total Assistance 5=Supervision or Setup 2=Maximal Assistance 6=Modified [place] 3=Moderate Assistance 7=Complete [place] Therapy Quality Codes: 6 Independent with activity with or without an assistive device 5 Patient requires set up or clean up by helper. Patient completes activity by themselves 4 Supervision or touching assist (CGA). [place] provide cues , steadying assist 3 The helper provides less than half the effort to complete the activity 2 The helper provides more than half the effort to complete the activity 1 Dependent. The helper does all the effort to complete an activity 7 Patient refused to complete or attempt activity 9 The patient did not perform the activity before the current illness or injury 88 Not attempted due to Medical conditions or safety concerns Grooming (FIM): 5 Oral Hygiene (QC): 4 Bathing (FIM): 5 Shower/Bathe Self (QC): 4 Upper Body (FIM): 5 Upper Body Dressing (QC): 5 Lower Body Dressing (FIM): 5 Lower Body Dressing (QC): 4 On/Off Footwear (QC): 6 Toileting (FIM): 5 Toileting Hygiene (QC): 4 Toilet/Commode Transfer (FIM): 5 Toilet Transfer (QC): 4 Shower Transfer(FIM): 5 Other Treatment Working on word finding and word association for memory tasks and sequencing. PT took over care in therapy gym. All need met. OT Short Term Goals Short Term Goals Transfers (B,C,W/C) (FIM): 6 1=Demonstrate adherence to instructed precautions during ADL tasks. 2=Patient will verbalize/demonstrate understanding of assistive devices/ modifications for ADL. 3=Patient will improve strength/tolerance for activity to enable patient to perform ADL's. OT Assisted Goals Assisted Goals Time Frame: Jul 16, 2018 Eating (FIM): 7 Eating (QC): 6 Groomin Oral Hygiene (QC): 6 Bathing(FIM): 5 Shower/Bathe Self (QC): 5 Upper Body Dressing(FIM): 6 Upper Body Dressing (QC): 6 Lower Body Dressing(FIM): 6 Lower Body Dressing (QC): 6 On/Off Footwear (QC): 6 Toileting(FIM): 6 Toileting Hygiene (QC): 6 Transfers (B,C,W/C) (FIM): 6 Toilet/Commode Transfer(FIM): 6 Toilet/Commode Transfer (QC): 6 Shower Transfer(FIM): 6 Additional Goals: 1-Demonstrate ADL Tasks, 2-Verbalize Understanding, 3- ImproveStrength/Carlos 1=Demonstrate adherence to instructed precautions during ADL tasks. 2=Patient will verbalize/demonstrate understanding of assistive devices/ modifications for ADL. 3=Patient will improve strength/tolerance for activity to enable patient to perform ADL's. OT Education/Plan Discharge Recommendations Plan/Recommendations: Continue POC Treatment Plan/Plan of Care Patient would benefit from OT for education, treatment and training to promote independence in ADL's, mobility, safety and/or upper extremity function for ADL' s. Plan of Care: ADL Retraining, Functional Mobility, Group Exercise/Act as Ind, UE Funct Exercise/Act Treatment Duration: Jul 16, 2018 Frequency: At least 5 of 7 days/Wk (IRF) Estimated Hrs Per Day: 1.5 hours per day Agreement: Yes Rehab Potential: Good Time/GCodes Start Time: 10:00 Stop Time: 11:00 Total Time Billed (hr/min): 60 Billed Treatment Time 1 visit-ADL 3 (45 min) FA 1 (15 min) RAYMON SIBLEY Jul 03, 2018 12:39
--- NOTE | 2018-07-03 14:18 | Consultation ---
History of Present Illness History of Present Illness Patient Consulted On(luma/time) 07/03/18 14:13 Date Seen by Provider: Jul 03, 2018 Time Seen by Provider: 14:13 History of Present Illness This is a 52 year old female who had been admitted to acute care with anoxic encephalopathy on June 03, 2018. She was initially intubated and admitted to the ICU but was able to be extubated and transferred to the medical floor. However, she was still having significant problems mentally with ongoing confusion and inability to perform any ADLs so it was decided to send her to [facility] for further care. She has improved while at [facility] and is to the point that she now requires rehab and is able to participate meaningfully in a rehab program. I am asked to consult for medical management. Allergies and Home Medications Allergies Coded Allergies: codeine (Verified Allergy, Mild, ITCHING, Pt has received Lortab in the past, 07/02/18) Sulfa (Sulfonamide Antibiotics) (Verified Allergy, Unknown, HIVES, 02/07/18) Home Medications Acetaminophen 650 Mg Tablet.er, 650 MG PO Q6H PRN for PAIN-MILD, (Reported) Albuterol Sulfate 1 Puff Puff, 2 PUFF INH Q6H PRN for SHORTNESS OF BREATH, ( Reported) Carvedilol 25 Mg Tablet, 25 MG PO BID, (Reported) Duloxetine HCl 30 Mg Capsule.dr, 30 MG PO DAILY, (Reported) Duloxetine HCl 30 Mg Capsule.dr, 60 MG PO HS, (Reported) Insulin Aspart 300 Units/3 Ml Solution, 15 UNITS SC BID WITH MEALS, (Reported) Insulin Detemir 100 Unit/1 Ml Insuln.pen, 50 UNITS SC BID, (Reported) Omeprazole 20 Mg Capsule.dr, 20 MG PO BID, (Reported) Ondansetron HCl 4 Mg Tablet, 4 MG PO Q4H PRN for NAUSEA/VOMITING-1ST LINE, ( Reported) Pregabalin 100 Mg Capsule, 100 MG PO BID, (Reported) Patient Home Medication List Home Medication List Reviewed: Yes Past Kwiajpm-Qaaxpb-Mzbrwf Hx Past Med/Social Hx: Reviewed Nursing Past Med/Soc Hx, Reviewed and Corrections made Patient Social History Alcohol Use: Denies Use Recreational Drug Use: Yes Drug of Choice: opioids Smoking Status: Current Someday Smoker Type Used: Cigarettes 2nd Hand Smoke Exposure: Yes Recent Foreign Travel: No Contact w/Someone Who Travel: No Recent Hopitalizations: Yes ([employer]) Immunizations Up To Date Tetanus Booster (TDap): Less than 5yrs Date of Pneumonia Vaccine: Jun 09, 2008 Date of Influenza Vaccine: Mar 29, 2015 Seasonal Allergies Seasonal Allergies: Yes Past Medical History Surgeries: Yes (Left breast cyst, x2, ORIF Right ankle) Section, Gallbladder, Orthopedic, Tubal Ligation Respiratory: Yes (CPAP not used after last sleep study) Sleep Apnea, COPD Cardiac: Yes Chronic Edema/Swelling, High Cholesterol, Hypertension Neurological: Yes (HYPOGLYCEMIC ENCEPHALOPATHY) Neuropathy, Traumatic Brain Injury 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 Disorders: No 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 Disorders: 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 Sexually Transmitted Disease: No HIV/AIDS: No Genitourinary: Yes Renal Failure, UTI-Chronic Gastrointestinal: Yes Gastroesophageal Reflux, Pancreatitis Musculoskeletal: Yes (right ankle fx with steel plate) Degenerate Disk Disease, Chronic Back Pain Endocrine: Yes Diabetes, Insulin dep HEENT: No Cancer: No Psychosocial: Yes (DGTR STATES PT HAS ADDICTIVE PERSONALITY) Sleep Difficulties, Anxiety, Depression Integumentary: Yes (FREQUENT CELLULITIS--LEGS) Recent Skin Changes Blood Disorders: No Adverse Reaction/Blood Tranf: No Family Medical History Completed stroke 19 FATHER Congenital heart disease 19 FATHER Diabetes mellitus 19 FATHER Myocardial infarction 19 FATHER Psychosocial problem 19 FATHER (depression) 19 MOTHER (depression) Respiratory disorder 19 MOTHER (copd) No Pertinent Family Hx, Diabetes Review of Systems-General Constitutional: weakness EENTM: No see HPI, No no symptoms reported, No ear discharge, No hearing loss, No ear pain, No blurred vision, No double vision, No eye pain, No tearing, No vision loss, No dental problems, No hoarseness, No mouth pain, No mouth swelling , No epistaxis, No nose congestion, No nose pain, No throat pain, No throat swelling, No other Respiratory: No no symptoms reported, No see HPI, No cough, No dyspnea on exertion, No hemoptysis, No orthopnea, No phlegm, No short of breath, No stridor , No wheezing, No other Cardiovascular: No no symptoms reported, No see HPI, No chest pain, No edema, No Hx of Intervention, No palpitations, No syncope, No vascular heart diseas, No other Gastrointestinal: No RUQ, No LUQ, No RLQ, No LLQ, No no symptoms reported, No see HPI, No abdominal pain, No constipation, No diarrhea, No dysphagia, No hematemesis, No heartburn, No jaundice, No loss of appetite, No melena, No nausea, No vomiting, No other Genitourinary: No no symptoms reported, No see HPI, No decreased output, No discharge, No dysuria, No frequency, No hematuria, No hesitancy, No incontinence , No nocturia, No pain, No other Musculoskeletal: back pain Skin: No no symptoms reported, No see HPI, No change in color, No change in hair/nails, No dryness, No hx of skin cancer, No lesions, No lumps, No pruritus , No rash, No other Psychiatric/Neurological: Pre-Existing Deficit, Weakness Physical Exam-General Problems Physical Exam Vital Signs Vital Signs - First Documented 07/02/18 10:05 Temp 97.8 Pulse 63 Resp 20 B/P (MAP) 119/79 (92) Pulse Ox 100 O2 Delivery Room Air Capillary Refill : General Appearance: no apparent distress HEENT: normal ENT inspection Neck: supple Respiratory: lungs clear Cardiovascular: regular rate, rhythm Gastrointestinal: normal bowel sounds, non tender, soft Back: no CVA tenderness Extremities: no pedal edema, no calf tenderness Neurologic/Psychiatric: alert, oriented x 3 Skin: warm/dry Assessment/Plan Assessment/Plan Admission Diagnosis/Plan 1. Anoxic Encephalopathy--ST, OT, PT while on rehab 2. Diabetes mellitus--insulin requiring, on SSI B, will add low dose levemir 3. History of HTN--currently off medications and BP is stable 4. History of Narcotic Abuse--not requiring pain medications at this time 5. COPD--stable Clinical Quality Measures DVT/VTE Risk/Contraindication: Risk Factor Score Per Nursin RFS Level Per Nursing on Admit: 4+=Very High MIRELA LYLE DO Jul 03, 2018 14:18
--- NOTE | 2018-07-03 15:05 | ST Dysphagia Evaluation ---
Speech Evaluation-General Medical Diagnosis Encephalopathy, anoxia Onset Date: Jul 02, 2018 Therapy Diagnosis Therapy Diagnosis: Oropharyngeal Dysphagia Precautions Precautions: Aspiration Precautions/Isolations: Seizure, Fall Prevention, Standard Precautions Medical History Pertinent Medical History: COPD, DM, HTN, Renal Insufficiency, Smoking Reviewed History: Yes Social History Current Living Status: Alone Speech PLF/Current-Dysphagia Prior Level of Function Patient lived at home where she was able to eat a regular diet level without difficulty. Subjective Patient was pleasant and cooperative during the Bedside Dysphagia Evaluation Cognitive Status Patient Orientation: Person, Place Oral Motor Skills Dentition: Natural, Tumbled, Stained Current Food Consistancy: Regular Voice Voice Phonatory-Based Quality: Hoarse Voice Pitch: Mildly Low Voice Loudness: Mildly Soft/Quiet Face Facial Symmetry: Symmetrical Oral-Facial Assessment Oral-Facial Dentition: Normal Lingual Protrusion: Abnormal Lingual ROM: Abnormal Lingual Strength: Abnormal Pharynx Velopharyngeal Move.: Normal Volitional Dry Swallow: Yes Voluntary Cough: Yes Can Clear Throat Volitionally: Yes Dysphagia Evaluation Dietary Recommendations: Mechanical Soft Liquid Recommendations: Thin Swallowing Precautions: Alternate Liquids/Solids, Double Swallow, Decreased Rate of Oral Intake, Liquids from Straw, Sitting Upright 90 Degrees, Sitting 90 Degrees 30 Post Intake Dysphagia Evaluation Summary Patient is a pleasant 52 year old female who was referred for a Bedside Dysphagia Evaluation due to difficulty with intake of regular diet level. Patient has a few remaining natural teeth. The remaining teeth are in very poor condition. She states she has difficulty with regular foods since she got ill. Patient exhibits decreased strength, ROM and coordination for lingual function. Mild decrease in bolus management and A-P transfer. Barriers to Learning Patient had anoxia which has left some residual side effects. Speech Short Term Goals Short Term Goals Short Term Goals 1) Patient will complete memory tasks related to her self at 80% or greater. 2) Patient will complete problem solving tasks related to daily tasks at 80% or greater. 3) Patient will recall new information presented related to personal safety within her immediate environment at 80% or greater. 4) Patient will tolerate least restrictive diet level at 90% accuracy. 5) Patient will utilize compensatory strategies as trained at 90% or greater. Speech Electrolytic Etcher Goals Residential Goals 1) Patient will improve her overall cognitive-communication status for safety and independence. 2) Patient will maintain adequate nutrition/hydration via safe effective swallow function. Speech-Plan Patient/Family Goals Patient/Family Goals: Patient plans to go to a local SNF upon ARU discharge. Treatment Plan Speech Therapy Treatment Plan: Continue Plan of Care Patient is recommended for skilled ST service to focus on safety of oral intake. Treatment Duration: Jul 09, 2018 Frequency: 5 times per week Estimated Hrs Per Day: .5 hour per day Rehab Potential: Good Barriers to Learning: Patient had anoxia which has left some residual effects. Safety Risks/Education Teaching Recipient: Patient Teaching Methods: Discussion Response to Teaching: Verbalize Understanding Education Topics Provided: Safety of oral intake. Time Speech Therapy Time In: 14:30 Speech Therapy Time Out: 15:00 Total Billed Time: 30 Billed Treatment Time 1 PARISKuldip MAURI Fisher Jul 03, 2018 15:05
--- NOTE | 2018-07-03 15:39 | Therapy Group Daily Note ---
Therapy Daily Group Note Patient Education Topic Other List Below (memory) Other/Notes Pt. participated in PT OT group session. Ratio was 4:1. Objective: Demonstrates knowledge of memory strategies to promote safety at home. (met) Understands purpose and objectives of ARU (met) Pt. benefitted from group this date by socializing and interacting with peers appropriately. Pt did have following directions and required verbal/physical cues. Pt. participated in sharing her own strategies for remembering things at home. Pt. participated in matching images game with others in group again laughing and sharing and having great success at remembering where images are . Pt. ambulated to and from [facility] using. Pt. in room after with urias at hand and needs met Start Time: 13:00 Stop Time: 14:15 Total Billed Treatment Time: 75 Total Billed Treatment 1-GRP RAYMON SIBLEY Jul 03, 2018 15:39
[2018-07-03 17:25] VITALS: BP 153/92
--- NOTE | 2018-07-03 19:17 | NUR ---
bedside report received from MELISSA RYAN, assume care of pt
[2018-07-03] MEDS: ENOXAPARIN 40 MG/0.4 ML (LOVENOX) SYR SC SCH (20:35)
--- NOTE | 2018-07-03 20:37 | NUR ---
c/o generalized discomfort level 5/10 on numeric scale, Ultram 50mg po given
--- NOTE | 2018-07-03 21:00 | NUR ---
assessments & interventions completed, see assessments & interventions, fsbs 249, NovoLog 5 units & Levemir 5 units given, pt is forgetful & impulsive, bed alarm & side rails up x4
[2018-07-03] MEDS: inSUlin DETERMIR 1 UNIT/0.01 ML (LEVEMIR) CHARGE PER UNIT SQ SCH (21:20)
--- NOTE | 2018-07-03 21:20 | NUR ---
resting in bed, pain level 0/10 on numeric scale
[2018-07-04 05:15] VITALS: BP 114/78
[2018-07-04] MEDS: inSUlin ASPART (NovoLOG) 1 UNIT/0.01 ML (CHARGE PER UNIT) SC SCH ×4 (06:00→20:38)
--- NOTE | 2018-07-04 07:18 | NUR ---
bedside report given to EDDIE RYAN
--- NOTE | 2018-07-04 10:43 | Physical Therapy Daily Note ---
PT Daily Note-Current Subjective Patient agrees to PT. Mental Status Patient Orientation: Person, Time, Situation Transfers Therapy Code Descriptions/Definitions Functional [place] Measure: 0=Not Assessed/NA 4=Minimal Assistance 1=Total Assistance 5=Supervision or Setup 2=Maximal Assistance 6=Modified [place] 3=Moderate Assistance 7=Complete [place] Therapy Quality Codes: 6 Independent with activity with or without an assistive device 5 Patient requires set up or clean up by helper. Patient completes activity by themselves 4 Supervision or touching assist (CGA). [place] provide cues , steadying assist 3 The helper provides less than half the effort to complete the activity 2 The helper provides more than half the effort to complete the activity 1 Dependent. The helper does all the effort to complete an activity 7 Patient refused to complete or attempt activity 9 The patient did not perform the activity before the current illness or injury 88 Not attempted due to Medical conditions or safety concerns Transfers (B, C, W/C) (FIM): 7 Scootin Rollin Roll Left to Right (QC): 6 Supine to/from Sit: 7 Sit to/from Stand: 7 Sit to Lying (QC): 6 Sit to Stand (QC): 6 Chair/Mwp-vw-Gfkri Xfer(QC): 6 Bed to/from Chair: 6 Car Transfer (QC): 6 Weight Bearing Right Lower Extremity: Right Full Weight Bearing Left Lower Extremity: Left Full Weight Bearing Gait Training Does the Patient Walk?: Yes Gait (FIM): 7 Distance (FIM): 3=150 ft Distance: 300' x 2 Walk 10 feet (QC): 6 Walk 50 ft with 2 Turns(QC): 6 Walk 150 ft (QC): 6 Gait Level of Assist: 7 Gait Assistive Device: None functional/steady Exercises NuStep Minutes: 10 NuStep Workload: 5 Assessment Patient is emotional on this date. PT assisted patient with phone call to family. PT Short Term Goals Short Term Goals Time Frame: Jul 09, 2018 Transfers (B,C,W/C) (FIM): 6 Gait (FIM): 5 Gait Distance Comment: 200' Gait Level of Assist: 5 Gait Assistive Device: FWW PT Correction Goals Correction Goals PT Fire Extinguisher Charger Goals Time Frame: Jul 23, 2018 Transfers (B,C,W/C) (FIM): 6 Sit to Lying (QC): 6 Lying-Sitting on Side/Bed(QC): 6 Sit to Stand (QC): 6 Rollin Roll Left to Right (QC): 6 Chair/Wov-ox-Udhln Xfer(QC): 6 Car Transfer (QC): 6 Gait (FIM): 6 Distance: 300' Walk 10 feet (QC): 6 Walk 10ft-Uneven Surface(QC): 6 Walk 50ft with 2 Turns (QC): 6 Walk 150 ft (QC): 6 Gait Level of Assist: 6 Gait Assistive Device: FWW Stairs (FIM): 5 # of Steps: 12 1 Step (curb) (QC): 4 4 Steps (QC): 4 12 Steps (QC): 4 Stairs Level Of Assist: 5 PT Plan Treatment/Plan Treatment Plan: Continue Plan of Care Treatment Plan: Bed Mobility, Education, Functional Activity Carlos, Functional Strength, Group Therapy, Gait, Safety, Therapeutic Exercise, Transfers Treatment Duration: Jul 23, 2018 Frequency: At least 5 of 7 days/Wk (IRF) Estimated Hrs Per Day: 1.5 hours per day Patient and/or Family Agrees t: Yes Time/GCodes Time In: 1025 Time Out: 1037 Total Billed Treatment Time: 12 Total Billed Treatment 1 visit EX 12 min LISA NARANJO PT Jul 04, 2018 10:43
--- NOTE | 2018-07-04 12:36 | PM&R Progress Note ---
Subjective HPI/CC On Admission Date Seen by Provider: Jul 04, 2018 Time Seen by Provider: 10:30 CC: Anoxic brain injury recovery HPI: This is a 52-year-old white female clinic patient of Dr. Haider who suffered a hypoglycemic episode and was found down for undetermined amount of time and suffered respiratory failure with anoxic brain injury who was intubated stabilized then extubated but had no return of meaningful function of any of her extremities or brain function who was at a standstill and uncertain of any return of brain function and family uncertain whether they wanted to have a PEG tube placed or any other artificial means of support so [facility] graciously accepted the patient and I was the one that actually transferred her there and she required extensive medical treatment along with NG tube placement for nutritional support and multiple medications to treat aggressive and agitated episodes but she ultimately recovered and although her communication and word finding is still an issue she has started feeding herself and taking care of herself and just starting to walk again. Dr. Haider has been consulted for primary care provider management. She wishes to be DO NOT RESUSCITATE so that order was written. Overall patient appears to be much improved very appreciative of everyone's help and she has already started on therapy and walking with physical therapy. Subjective/Events-last exam Patient doing much better Ready to get in the shower Talking better Blood sugars are slightly elevated but permissive hyperglycemia due to severe hypoglycemia causing the anoxic brain injury when found down No pain is reported Review of Systems General: Fatigue Neurological: Change in speech Objective Exam Vital Signs Vital Signs Date Time Temp Pulse Resp B/P (MAP) Pulse Ox O2 Delivery O2 Flow Rate FiO2 07/04/18 09:00 98 Room Air 07/04/18 05:15 96.5 74 18 114/78 (90) Capillary Refill : General Appearance: No Apparent Distress, WD/WN, Chronically ill Respiratory: Chest Non Tender, Lungs Clear, Normal Breath Sounds, No Accessory Muscle Use, No Respiratory Distress Cardiovascular: Regular Rate, Rhythm, No Edema, No Gallop, No JVD, No Murmur, Normal Peripheral Pulses Neurologic/Psychiatric: Alert, Oriented x3, No Motor/Sensory Deficits, Normal Mood/Affect Results/Procedures Lab Patient resulted labs reviewed. Assessment/Plan Assessment and Plan Assess & Plan/Chief Complaint Assessment: 1. Hypoglycemia with Encephalopathy 2. Acute Respiratory Failure with respiratory acidosis due to Encephalopathy s/ p extubation 3. UTI hx 4. History of narcotic abuse and kratom abuse 5. DM Plan: Home meds Insulin Monitor closely Ultram only for pain DNR Diagnosis/Problems Diagnosis/Problems (1) Anoxic encephalopathy Status: Chronic (2) Neurocognitive deficits Status: Chronic (3) Altered mental status Status: Chronic Qualifiers: Altered mental status type: unspecified Qualified Codes: R41.82 - Altered mental status, unspecified (4) Hypoglycemia Status: Resolved Resolution Date/Time: 06/06/18 @ 12:44 (5) Acute respiratory failure Status: Resolved Qualifiers: Respiratory failure complication: unspecified whether with hypoxia or hypercapnia Qualified Codes: J96.00 - Acute respiratory failure, unspecified whether with hypoxia or hypercapnia Resolution Date/Time: 07/02/18 @ 22:07 (6) Obesity Status: Chronic Qualifiers: Obesity type: due to excess calories Obesity classification: adult class 2 (BMI 35 - 39.9) Serious obesity comorbidity presence: with serious comorbidity Body mass index: BMI 37.0-37.9 Qualified Codes: E66.01 - Morbid (severe) obesity due to excess calories; Z68.37 - Body mass index (bmi) 37.0- 37.9, adult Clinical Quality Measures DVT/VTE Risk/Contraindication: Risk Factor Score Per Nursin RFS Level Per Nursing on Admit: 4+=Very High SOHAIL HBUER DO Jul 04, 2018 12:36
[2018-07-04 18:00] VITALS: BP 133/85
--- NOTE | 2018-07-04 19:12 | NUR ---
bedside report received from EDDIE RYAN, assume care of pt
[2018-07-04] MEDS: ENOXAPARIN 40 MG/0.4 ML (LOVENOX) SYR SC SCH (20:36)
[2018-07-04] MEDS: inSUlin DETERMIR 1 UNIT/0.01 ML (LEVEMIR) CHARGE PER UNIT SQ SCH (20:38)
--- NOTE | 2018-07-04 20:38 | NUR ---
c/o generalized pain level 5/10 on numeric scale, Ultram 50mg po given
--- NOTE | 2018-07-04 21:00 | NUR ---
assessments & interventions completed see assessments & interventions, fsbs 203 NovoLog 6 units & Levemir 6 units given, bed rails up x4 bed alarm on
--- NOTE | 2018-07-04 21:20 | NUR ---
rates pain at 2/10 on numeric scale
[2018-07-05 05:26] VITALS: BP 133/89
[2018-07-05] MEDS: inSUlin ASPART (NovoLOG) 1 UNIT/0.01 ML (CHARGE PER UNIT) SC SCH ×4 (06:53→20:35)
--- NOTE | 2018-07-05 07:21 | NUR ---
bedside report given to AFSANEH RYAN
--- NOTE | 2018-07-05 13:22 | PM&R Progress Note ---
Subjective HPI/CC On Admission Date Seen by Provider: Jul 05, 2018 Time Seen by Provider: 12:30 CC: Anoxic brain injury recovery HPI: This is a 52-year-old white female clinic patient of Dr. Haider who suffered a hypoglycemic episode and was found down for undetermined amount of time and suffered respiratory failure with anoxic brain injury who was intubated stabilized then extubated but had no return of meaningful function of any of her extremities or brain function who was at a standstill and uncertain of any return of brain function and family uncertain whether they wanted to have a PEG tube placed or any other artificial means of support so [place] graciously accepted the patient and I was the one that actually transferred her there and she required extensive medical treatment along with NG tube placement for nutritional support and multiple medications to treat aggressive and agitated episodes but she ultimately recovered and although her communication and word finding is still an issue she has started feeding herself and taking care of herself and just starting to walk again. Dr. Haider has been consulted for primary care provider management. She wishes to be DO NOT RESUSCITATE so that order was written. Overall patient appears to be much improved very appreciative of everyone's help and she has already started on therapy and walking with physical therapy. Subjective/Events-last exam Patient doing well Continues to pace around and walk around the unit Is oriented but confusion on details Word finding improved Review of Systems Neurological: Change in speech, Confusion Objective Exam Vital Signs Vital Signs Date Time Temp Pulse Resp B/P (MAP) Pulse Ox O2 Delivery O2 Flow Rate FiO2 07/05/18 10:30 Room Air 07/05/18 05:26 97.8 83 18 133/89 (104) 98 Capillary Refill : General Appearance: No Apparent Distress, WD/WN Respiratory: Chest Non Tender, Lungs Clear, Normal Breath Sounds, No Accessory Muscle Use, No Respiratory Distress Cardiovascular: Regular Rate, Rhythm, No Edema, No Gallop, No JVD, No Murmur, Normal Peripheral Pulses Neurologic/Psychiatric: Alert, No Motor/Sensory Deficits, Normal Mood/Affect, Disoriented Results/Procedures Lab Patient resulted labs reviewed. Assessment/Plan Assessment and Plan Assess & Plan/Chief Complaint Assessment: 1. Hypoglycemia with Encephalopathy 2. Acute Respiratory Failure with respiratory acidosis due to Encephalopathy s/ p extubation 3. UTI hx 4. History of narcotic abuse and kratom abuse 5. DM Plan: Home meds Insulin Monitor closely Ultram only for pain DNR Diagnosis/Problems Diagnosis/Problems (1) Anoxic encephalopathy Status: Chronic (2) Neurocognitive deficits Status: Chronic (3) Altered mental status Status: Chronic Qualifiers: Altered mental status type: unspecified Qualified Codes: R41.82 - Altered mental status, unspecified (4) Hypoglycemia Status: Resolved Resolution Date/Time: 06/06/18 @ 12:44 (5) Acute respiratory failure Status: Resolved Qualifiers: Respiratory failure complication: unspecified whether with hypoxia or hypercapnia Qualified Codes: J96.00 - Acute respiratory failure, unspecified whether with hypoxia or hypercapnia Resolution Date/Time: 07/02/18 @ 22:07 (6) Obesity Status: Chronic Qualifiers: Obesity type: due to excess calories Obesity classification: adult class 2 (BMI 35 - 39.9) Serious obesity comorbidity presence: with serious comorbidity Body mass index: BMI 37.0-37.9 Qualified Codes: E66.01 - Morbid (severe) obesity due to excess calories; Z68.37 - Body mass index (bmi) 37.0- 37.9, adult Clinical Quality Measures DVT/VTE Risk/Contraindication: Risk Factor Score Per Nursin RFS Level Per Nursing on Admit: 4+=Very High SOHAIL HUBER DO Jul 05, 2018 13:22
[2018-07-05 17:56] VITALS: BP 133/77
--- NOTE | 2018-07-05 19:10 | NUR ---
bedside report given to AFSANEH RYAN, assume care of pt
[2018-07-05] MEDS: ENOXAPARIN 40 MG/0.4 ML (LOVENOX) SYR SC SCH (20:32)
[2018-07-05] MEDS: inSUlin DETERMIR 1 UNIT/0.01 ML (LEVEMIR) CHARGE PER UNIT SQ SCH (20:33)
--- NOTE | 2018-07-05 20:35 | NUR ---
c/o rt lower extremity pain level 5/10 on numeric scale, Ultram 50mg po given
--- NOTE | 2018-07-05 21:00 | NUR ---
assessments & interventions completed, see assessments & interventions, fsbs 272 NovoLog 8 units & scheduled Levemir 5 units given
--- NOTE | 2018-07-05 21:15 | NUR ---
rates pain at 2/10 on numeric scale
[2018-07-05] MEDS: ACETAMINOPHEN 500 MG TAB (TYLENOL) PO PRN (23:34)
--- NOTE | 2018-07-05 23:34 | NUR ---
c/o headache pain level 5/10 on numeric scale, Tylenol 500mg po given
--- NOTE | 2018-07-06 00:20 | NUR ---
resting quietly in bed, pain level 0/10 on flacc scale
[2018-07-06 05:29] VITALS: BP 141/85
[2018-07-06] MEDS: inSUlin ASPART (NovoLOG) 1 UNIT/0.01 ML (CHARGE PER UNIT) SC SCH ×4 (06:00→21:47)
--- NOTE | 2018-07-06 07:15 | NUR ---
bedside report given to MERY RYAN
--- NOTE | 2018-07-06 08:41 | PM&R Progress Note ---
Subjective HPI/CC On Admission Date Seen by Provider: Jul 06, 2018 Time Seen by Provider: 08:20 CC: Anoxic brain injury recovery HPI: This is a 52-year-old white female clinic patient of Dr. Haider who suffered a hypoglycemic episode and was found down for undetermined amount of time and suffered respiratory failure with anoxic brain injury who was intubated stabilized then extubated but had no return of meaningful function of any of her extremities or brain function who was at a standstill and uncertain of any return of brain function and family uncertain whether they wanted to have a PEG tube placed or any other artificial means of support so [place] graciously accepted the patient and I was the one that actually transferred her there and she required extensive medical treatment along with NG tube placement for nutritional support and multiple medications to treat aggressive and agitated episodes but she ultimately recovered and although her communication and word finding is still an issue she has started feeding herself and taking care of herself and just starting to walk again. Dr. Haider has been consulted for primary care provider management. She wishes to be DO NOT RESUSCITATE so that order was written. Overall patient appears to be much improved very appreciative of everyone's help and she has already started on therapy and walking with physical therapy. Subjective/Events-last exam Patient doing well Fall need 30/12 care Update her primary care provider when she saw her today Blood sugars reasonable No events Patient denies any pain Review of Systems General: Fatigue Neurological: Change in speech, Confusion Objective Exam Vital Signs Vital Signs Date Time Temp Pulse Resp B/P (MAP) Pulse Ox O2 Delivery O2 Flow Rate FiO2 07/06/18 11:18 79 20 138/89 (105) 100 Room Air 07/06/18 08:53 98.1 Capillary Refill : General Appearance: No Apparent Distress, WD/WN, Chronically ill, Obese Respiratory: Chest Non Tender, Lungs Clear, Normal Breath Sounds, No Accessory Muscle Use, No Respiratory Distress Cardiovascular: Regular Rate, Rhythm, No Edema, No Gallop, No JVD, No Murmur, Normal Peripheral Pulses Neurologic/Psychiatric: Alert, Oriented x3, No Motor/Sensory Deficits, Normal Mood/Affect, Disoriented (to orientation and other details) Results/Procedures Lab Patient resulted labs reviewed. Assessment/Plan Assessment and Plan Assess & Plan/Chief Complaint Assessment: 1. Hypoglycemia with Encephalopathy 2. Acute Respiratory Failure with respiratory acidosis due to Encephalopathy s/ p extubation 3. UTI hx 4. History of narcotic abuse and kratom abuse 5. DM Plan: Home meds Insulin Monitor closely Ultram only for pain DNR Confusion noted and will need 30/12 care Diagnosis/Problems Diagnosis/Problems (1) Anoxic encephalopathy Status: Chronic (2) Neurocognitive deficits Status: Chronic (3) Altered mental status Status: Chronic Qualifiers: Altered mental status type: unspecified Qualified Codes: R41.82 - Altered mental status, unspecified (4) Hypoglycemia Status: Resolved Resolution Date/Time: 06/06/18 @ 12:44 (5) Acute respiratory failure Status: Resolved Qualifiers: Respiratory failure complication: unspecified whether with hypoxia or hypercapnia Qualified Codes: J96.00 - Acute respiratory failure, unspecified whether with hypoxia or hypercapnia Resolution Date/Time: 07/02/18 @ 22:07 (6) Obesity Status: Chronic Qualifiers: Obesity type: due to excess calories Obesity classification: adult class 2 (BMI 35 - 39.9) Serious obesity comorbidity presence: with serious comorbidity Body mass index: BMI 37.0-37.9 Qualified Codes: E66.01 - Morbid (severe) obesity due to excess calories; Z68.37 - Body mass index (bmi) 37.0- 37.9, adult Clinical Quality Measures DVT/VTE Risk/Contraindication: Risk Factor Score Per Nursin RFS Level Per Nursing on Admit: 4+=Very High SOHAIL HUBER DO Jul 06, 2018 08:40
--- NOTE | 2018-07-06 09:46 | Speech Therapy Daily Note ---
Speech Daily Progress Note Subjective Date Seen by Provider: Jul 06, 2018 Time Seen by Provider: 00:30 Patient appeared much more rested and was able to engage in simple conversation. Objective Patient completed simple conversational tasks with minimal redirection at 80% accuracy. Assessment Assessment Current Status: Good Progress Communication Comprehension: 3 Expression: 3 Social Cognition Social Interaction: 5 Problem Solvin Memory: 2 Speech Short Term Goals Short Term Goals Short Term Goals 1) Patient will complete memory tasks related to her self at 80% or greater. 2) Patient will complete problem solving tasks related to daily tasks at 80% or greater. 3) Patient will recall new information presented related to personal safety within her immediate environment at 80% or greater. 4) Patient will tolerate least restrictive diet level at 90% accuracy. 5) Patient will utilize compensatory strategies as trained at 90% or greater. Speech Insurance Verification Clerk Goals Insurance Verification Clerk Goals 1) Patient will improve her overall cognitive-communication status for safety and independence. 2) Patient will maintain adequate nutrition/hydration via safe effective swallow function. Speech-Plan Patient/Family Goals Patient/Family Goals: Patient plans to discharge to her daughter's home post rehab. Treatment Plan Speech Therapy Treatment Plan: Continue Plan of Care Patient was able to complete tasks with significant improvement today. Treatment Duration: Jul 09, 2018 Frequency: 5 times per week Estimated Hrs Per Day: .5 hour per day Rehab Potential: Good Barriers to Learning: Patient has difficulty with speaking the correct words at times. Pt/Family Agrees to Plan: Yes Safety Risks/Education Teaching Recipient: Patient Teaching Methods: Discussion Response to Teaching: Verbalize Understanding Education Topics Provided: Safety within her room. Time Speech Therapy Time In: 09:00 Speech Therapy Time Out: 09:30 Total Billed Time: 30 Billed Treatment Time [address] Jul 06, 2018 09:45
[2018-07-06 11:18] VITALS: BP 138/89
--- NOTE | 2018-07-06 12:01 | Physical Therapy Daily Note ---
PT Daily Note-Current Subjective Pt. emotionally labile, tearful this date. Thanks this BULK MAIL TECHNICIAN repeatedly. Initially c/o feeling dizzy and weak. Nurse was contacted and took pts. FSBS which was 293. Pain Numeric Pain Scale: 0-No Pain Appearance Pt. observed initially with 2 LOB episodes , 1 requiring assist to correct, pt. reports dizziness, gait belt was applied and FWW brought for pt to use for gait training Mental Status Patient Orientation: Person, Place, Situation Transfers Therapy Code Descriptions/Definitions Functional [place] Measure: 0=Not Assessed/NA 4=Minimal Assistance 1=Total Assistance 5=Supervision or Setup 2=Maximal Assistance 6=Modified [place] 3=Moderate Assistance 7=Complete [place] Therapy Quality Codes: 6 Independent with activity with or without an assistive device 5 Patient requires set up or clean up by helper. Patient completes activity by themselves 4 Supervision or touching assist (CGA). [place] provide cues , steadying assist 3 The helper provides less than half the effort to complete the activity 2 The helper provides more than half the effort to complete the activity 1 Dependent. The helper does all the effort to complete an activity 7 Patient refused to complete or attempt activity 9 The patient did not perform the activity before the current illness or injury 88 Not attempted due to Medical conditions or safety concerns Transfers (B, C, W/C) (FIM): 6 Scootin Rollin Supine to/from Sit: 6 Sit to/from Stand: 6 Weight Bearing Right Lower Extremity: Right Full Weight Bearing Left Lower Extremity: Left Full Weight Bearing Gait Training Does the Patient Walk?: Yes Gait (FIM): 3 Distance (FIM): 3=150 ft (160x2) Gait Level of Assist: 4 Gait Persons Needed: 1 Gait Assistive Device: FWW pt. with 2 LOB episodes used FWW for Rx this date..Pt. did not c/o dizziness after these episodes. No more LOB noted Exercises Supine Ex: Bridging, Ankle pumps, Quad Set, Rolling, Glut sets, Heel Slides, Short Arc Quads, Scooting, Straight leg raise, Hip abd/add Supine Reps: 15 NuStep Minutes: 12 NuStep Workload: 4 Assessment Current Status: Good Progress some c/o dizziness and subsequent LOB , pt was reintroduced to FWW for this Rx. PT Short Term Goals Short Term Goals Time Frame: Jul 09, 2018 Transfers (B,C,W/C) (FIM): 6 Gait (FIM): 5 Gait Distance Comment: 200' Gait Level of Assist: 5 Gait Assistive Device: FWW PT Prison Goals Dog Beautician Goals PT Dog Beautician Goals Time Frame: Jul 23, 2018 Transfers (B,C,W/C) (FIM): 6 Sit to Lying (QC): 6 Lying-Sitting on Side/Bed(QC): 6 Sit to Stand (QC): 6 Rollin Roll Left to Right (QC): 6 Chair/Egx-gu-Mcdvw Xfer(QC): 6 Car Transfer (QC): 6 Gait (FIM): 6 Distance: 300' Walk 10 feet (QC): 6 Walk 10ft-Uneven Surface(QC): 6 Walk 50ft with 2 Turns (QC): 6 Walk 150 ft (QC): 6 Gait Level of Assist: 6 Gait Assistive Device: FWW Stairs (FIM): 5 # of Steps: 12 1 Step (curb) (QC): 4 4 Steps (QC): 4 12 Steps (QC): 4 Stairs Level Of Assist: 5 PT Plan Treatment/Plan Treatment Plan: Continue Plan of Care Treatment Plan: Bed Mobility, Education, Functional Activity Carlos, Functional Strength, Group Therapy, Gait, Safety, Therapeutic Exercise, Transfers Treatment Duration: Jul 23, 2018 Frequency: At least 5 of 7 days/Wk (IRF) Estimated Hrs Per Day: 1.5 hours per day Patient and/or Family Agrees t: Yes Safety Risks/Education Patient Education: Gait Training, Transfer Techniques, Correct Positioning, W/ C Management, Disease Process, Safety Issues Teaching Recipient: Patient Teaching Methods: Demonstration, Discussion Response to Teaching: Verbalize Understanding, Return Demonstration, Reinforcement Needed Time/GCodes Time In: 1100 Time Out: 1200 Total Billed Treatment Time: 60 Total Billed Treatment 1,GT20m,FA15m,EX25m G Codes Necessary: MAUREEN Issa BULK MAIL TECHNICIAN Jul 06, 2018 12:01
--- NOTE | 2018-07-06 12:36 | Occupational Ther Daily Note ---
OT Current Status-Daily Note Subjective No pain reported. Pt. is tearful throughout treatment when something is difficult for her. Appearance Pt. is up walking around on her own. Pt. is dressed. Pt. is able to indicate that she is "fine in these" when asked if she would like to take a shower, or change clothing. Pt. states that she does not want a shower. At end of treatment however, pt. reports that she would like a shower. Will do this in afternoon. Mental Status/Objective Therapy Code Descriptions/Definitions Functional [place] Measure: 0=Not Assessed/NA 4=Minimal Assistance 1=Total Assistance 5=Supervision or Setup 2=Maximal Assistance 6=Modified [place] 3=Moderate Assistance 7=Complete [place] ADL-Treatment Therapy Code Descriptions/Definitions Functional [place] Measure: 0=Not Assessed/NA 4=Minimal Assistance 1=Total Assistance 5=Supervision or Setup 2=Maximal Assistance 6=Modified [place] 3=Moderate Assistance 7=Complete [place] Therapy Quality Codes: 6 Independent with activity with or without an assistive device 5 Patient requires set up or clean up by helper. Patient completes activity by themselves 4 Supervision or touching assist (CGA). [place] provide cues , steadying assist 3 The helper provides less than half the effort to complete the activity 2 The helper provides more than half the effort to complete the activity 1 Dependent. The helper does all the effort to complete an activity 7 Patient refused to complete or attempt activity 9 The patient did not perform the activity before the current illness or injury 88 Not attempted due to Medical conditions or safety concerns Transfers (B, C, W/C) (FIM): 5 (supervision for ambulation only due to safety concerns. Pt. does not use a device.) Pt. is in therapy dining area. Agrees to work with OT. OT begins treatment with several different visual perceptual tasks. Pt. has great difficulty with this. Is unable to do a scan activity, or copy a picture while looking at it. Pt. becomes upset by this. OT brings out coloring book and crayons. Asked pt. to color the picture. Pt. seems overwhelmed by this and does not know where to start. Pt. is instructed to color one area at a time. Pt. is able to do this but is slow. Pt. is then given fine motor/visual task of playing "perfection" game and putting small shaped pieces into corresponding holes. Pt. is able to do a couple of these, but becomes very tearful because it is difficult. OT attempts to do "naming" task with pt., as well as categorization task. Pt. knows that this is difficult for her, and knows that she is unable to do so. States that she is "sorry." OT re-assures her continually throughout process. Pt. agreed to work on puzzle in dining area with other pt's after treatment. Nursing aware that pt. there and is supervised. Education OT Patient Education: Energy conservation, Exercise program, Progress toward Goal/Update tx plan, Purpose of tx/functional activities, Reviewed precautions, Rehab process Teaching Recipient: Patient Teaching Methods: Demonstration Response to Teaching: Verbalize Understanding, Unable to Return Demonstration OT Short Term Goals Short Term Goals Transfers (B,C,W/C) (FIM): 6 1=Demonstrate adherence to instructed precautions during ADL tasks. 2=Patient will verbalize/demonstrate understanding of assistive devices/ modifications for ADL. 3=Patient will improve strength/tolerance for activity to enable patient to perform ADL's. OT Veneer Jointer Helper Goals [facility] Goals Time Frame: Jul 16, 2018 Eating (FIM): 7 Eating (QC): 6 Groomin Oral Hygiene (QC): 6 Bathing(FIM): 5 Shower/Bathe Self (QC): 5 Upper Body Dressing(FIM): 6 Upper Body Dressing (QC): 6 Lower Body Dressing(FIM): 6 Lower Body Dressing (QC): 6 On/Off Footwear (QC): 6 Toileting(FIM): 6 Toileting Hygiene (QC): 6 Transfers (B,C,W/C) (FIM): 6 Toilet/Commode Transfer(FIM): 6 Toilet/Commode Transfer (QC): 6 Shower Transfer(FIM): 6 Additional Goals: 1-Demonstrate ADL Tasks, 2-Verbalize Understanding, 3- ImproveStrength/Carlos 1=Demonstrate adherence to instructed precautions during ADL tasks. 2=Patient will verbalize/demonstrate understanding of assistive devices/ modifications for ADL. 3=Patient will improve strength/tolerance for activity to enable patient to perform ADL's. OT Education/Plan Problem List/Assessment Assessment: Decreased Safety Aware, Impaired Cognition, Impaired Coordination, Impaired I ADL's, Visual-Perceptual Deficit Discharge Recommendations Plan/Recommendations: Continue POC Treatment Plan/Plan of Care Treatment,Training & Education: Yes Patient would benefit from OT for education, treatment and training to promote independence in ADL's, mobility, safety and/or upper extremity function for ADL' s. Plan of Care: ADL Retraining, Functional Mobility, Group Exercise/Act as Ind, UE Funct Exercise/Act Treatment Duration: Jul 16, 2018 Frequency: At least 5 of 7 days/Wk (IRF) Estimated Hrs Per Day: 1.5 hours per day Agreement: Yes Rehab Potential: Good Time/GCodes Start Time: 09:30 Stop Time: 10:25 Total Time Billed (hr/min): 55 Billed Treatment Time 1, FA x 4 AARON PRAJAPATI OT Jul 06, 2018 12:35
--- NOTE | 2018-07-06 14:33 | NUR ---
Pt had moderate difficulty when RN attempting to obtain pt's requested meal for lunch, pt slurred several of the options together, as 1 item, such as the stir tolliver chicken, then turkey, also asking for brown sausage, when she meant gravy, needed clarification.
--- NOTE | 2018-07-06 15:14 | Physical Therapy Daily Note ---
PT Daily Note-Current Subjective Pt. with many visitors in her room, much laughter and support. Pt. agrees to Rx. Pain Location: No Pain Reported Transfers Therapy Code Descriptions/Definitions Functional [place] Measure: 0=Not Assessed/NA 4=Minimal Assistance 1=Total Assistance 5=Supervision or Setup 2=Maximal Assistance 6=Modified [place] 3=Moderate Assistance 7=Complete [place] Therapy Quality Codes: 6 Independent with activity with or without an assistive device 5 Patient requires set up or clean up by helper. Patient completes activity by themselves 4 Supervision or touching assist (CGA). [place] provide cues , steadying assist 3 The helper provides less than half the effort to complete the activity 2 The helper provides more than half the effort to complete the activity 1 Dependent. The helper does all the effort to complete an activity 7 Patient refused to complete or attempt activity 9 The patient did not perform the activity before the current illness or injury 88 Not attempted due to Medical conditions or safety concerns all TRFs sup to sit and sit to sup and sit to stand all MOD I TRFd toilet mod I and managed pants and cleaning Weight Bearing Right Lower Extremity: Right Full Weight Bearing Left Lower Extremity: Left Full Weight Bearing Gait Training Gait Assistive Device: FWW gait 175x2 no LOB, tends not to use FWW, may be able to be up ad ivelisse tomorrow without FWW Exercises Standing: Hip Abduction, Heel/toe raises, Marching, Mini squats, Sit to Stand Standing Reps: 12 Assessment Current Status: Good Progress PT Short Term Goals Short Term Goals Time Frame: Jul 09, 2018 Transfers (B,C,W/C) (FIM): 6 Gait (FIM): 5 Gait Distance Comment: 200' Gait Level of Assist: 5 Gait Assistive Device: FWW PT Drug And Alcohol Counsellor Goals Longterm Goals PT Drug And Alcohol Counsellor Goals Time Frame: Jul 23, 2018 Transfers (B,C,W/C) (FIM): 6 Sit to Lying (QC): 6 Lying-Sitting on Side/Bed(QC): 6 Sit to Stand (QC): 6 Rollin Roll Left to Right (QC): 6 Chair/Fuj-bo-Atjln Xfer(QC): 6 Car Transfer (QC): 6 Gait (FIM): 6 Distance: 300' Walk 10 feet (QC): 6 Walk 10ft-Uneven Surface(QC): 6 Walk 50ft with 2 Turns (QC): 6 Walk 150 ft (QC): 6 Gait Level of Assist: 6 Gait Assistive Device: FWW Stairs (FIM): 5 # of Steps: 12 1 Step (curb) (QC): 4 4 Steps (QC): 4 12 Steps (QC): 4 Stairs Level Of Assist: 5 PT Plan Treatment/Plan Treatment Plan: Continue Plan of Care Treatment Plan: Bed Mobility, Education, Functional Activity Carlos, Functional Strength, Group Therapy, Gait, Safety, Therapeutic Exercise, Transfers Treatment Duration: Jul 23, 2018 Frequency: At least 5 of 7 days/Wk (IRF) Estimated Hrs Per Day: 1.5 hours per day Patient and/or Family Agrees t: Yes Safety Risks/Education Patient Education: Gait Training, Transfer Techniques, Correct Positioning, Disease Process, Safety Issues Teaching Recipient: Patient Teaching Methods: Demonstration, Discussion Response to Teaching: Verbalize Understanding, Return Demonstration, Reinforcement Needed Time/GCodes Time In: 1450 Time Out: 1510 Total Billed Treatment Time: 20 Total Billed Treatment 1,EX20m G Codes Necessary: MAUREEN Issa FRONT OFFICE REPRESENTATIVE Jul 06, 2018 15:14
--- NOTE | 2018-07-06 15:51 | NUR ---
Initial visit: pt states she believes God saved her life and she is a living miracle. Friends present rehearsed events surrounding pt's previous admission to the ER, during which this color worker was present. Facilitated pt's personal expression of florencio and offered prayer.
[2018-07-06 15:59] VITALS: BP 143/86
--- NOTE | 2018-07-06 16:21 | Occupational Ther Daily Note ---
OT Current Status-Daily Note Subjective No pain reported. Appearance Pt. up on side of bed when OT enters room. Agrees to work with OT. Mental Status/Objective Therapy Code Descriptions/Definitions Functional [place] Measure: 0=Not Assessed/NA 4=Minimal Assistance 1=Total Assistance 5=Supervision or Setup 2=Maximal Assistance 6=Modified [place] 3=Moderate Assistance 7=Complete [place] ADL-Treatment Therapy Code Descriptions/Definitions Functional [place] Measure: 0=Not Assessed/NA 4=Minimal Assistance 1=Total Assistance 5=Supervision or Setup 2=Maximal Assistance 6=Modified [place] 3=Moderate Assistance 7=Complete [place] Therapy Quality Codes: 6 Independent with activity with or without an assistive device 5 Patient requires set up or clean up by helper. Patient completes activity by themselves 4 Supervision or touching assist (CGA). [place] provide cues , steadying assist 3 The helper provides less than half the effort to complete the activity 2 The helper provides more than half the effort to complete the activity 1 Dependent. The helper does all the effort to complete an activity 7 Patient refused to complete or attempt activity 9 The patient did not perform the activity before the current illness or injury 88 Not attempted due to Medical conditions or safety concerns Grooming (FIM): 4 (Pt. requires min assist to brush hair.) Bathing (FIM): 5 (Pt. requires cues and supervision for bathing self.) Shower/Bathe Self (QC): 4 Upper Body (FIM): 5 Upper Body Dressing (QC): 4 Lower Body Dressing (FIM): 4 (Pt. requires min assist to tighten drawstring on pants. CGA in stance to slip into slippers.) Lower Body Dressing (QC): 4 On/Off Footwear (QC): 4 Toileting (FIM): 5 Toileting Hygiene (QC): 4 Transfers (B, C, W/C) (FIM): 4 Toilet/Commode Transfer (FIM): 5 Toilet Transfer (QC): 4 Shower Transfer(FIM): 4 Other Treatment Pt. states that she is not tired, but does seem more tired this afternoon. Requires more assist to balance self and ambulate to shower. Supervision required for mobility and to sequence. Pt. back in bed at end of treatment session with friends in the room. All needs met. Education OT Patient Education: Correct positioning, Modified ADL techniques, Progress toward Goal/Update tx plan, Purpose of tx/functional activities, Reviewed precautions, Rehab process, Transfer techniques Teaching Recipient: Patient Teaching Methods: Demonstration, Discussion Response to Teaching: Verbalize Understanding, Return Demonstration OT Short Term Goals Short Term Goals Transfers (B,C,W/C) (FIM): 6 1=Demonstrate adherence to instructed precautions during ADL tasks. 2=Patient will verbalize/demonstrate understanding of assistive devices/ modifications for ADL. 3=Patient will improve strength/tolerance for activity to enable patient to perform ADL's. OT Senior Living Goals Senior Living Goals Time Frame: Jul 16, 2018 Eating (FIM): 7 Eating (QC): 6 Groomin Oral Hygiene (QC): 6 Bathing(FIM): 5 Shower/Bathe Self (QC): 5 Upper Body Dressing(FIM): 6 Upper Body Dressing (QC): 6 Lower Body Dressing(FIM): 6 Lower Body Dressing (QC): 6 On/Off Footwear (QC): 6 Toileting(FIM): 6 Toileting Hygiene (QC): 6 Transfers (B,C,W/C) (FIM): 6 Toilet/Commode Transfer(FIM): 6 Toilet/Commode Transfer (QC): 6 Shower Transfer(FIM): 6 Additional Goals: 1-Demonstrate ADL Tasks, 2-Verbalize Understanding, 3- ImproveStrength/Carlos 1=Demonstrate adherence to instructed precautions during ADL tasks. 2=Patient will verbalize/demonstrate understanding of assistive devices/ modifications for ADL. 3=Patient will improve strength/tolerance for activity to enable patient to perform ADL's. OT Education/Plan Problem List/Assessment Assessment: Decreased Activ Tolerance, Impaired I ADL's, Impaired Self-Care Skills Discharge Recommendations Plan/Recommendations: Continue POC Treatment Plan/Plan of Care Treatment,Training & Education: Yes Patient would benefit from OT for education, treatment and training to promote independence in ADL's, mobility, safety and/or upper extremity function for ADL' s. Plan of Care: ADL Retraining, Functional Mobility, Group Exercise/Act as Ind, UE Funct Exercise/Act Treatment Duration: Jul 16, 2018 Frequency: At least 5 of 7 days/Wk (IRF) Estimated Hrs Per Day: 1.5 hours per day Agreement: Yes Rehab Potential: Good Time/GCodes Start Time: 13:00 Stop Time: 13:40 Total Time Billed (hr/min): 40 Billed Treatment Time 1, ADL x 3 AARON PRAJAPATI OT Jul 06, 2018 16:21
--- NOTE | 2018-07-06 16:32 | NUR ---
Friend came out of room stating that pt states that pt's Rt ankle where she had a scab, is bothering her; pt has taken the bandaid off. Noted small, shallow area w whitish center w redness around the white center. Placed a wound consult order, as Dr. Gottlieb is coming up this evng to see another pt. Covered w dry drsg until then.
--- NOTE | 2018-07-06 17:29 | Progress Note (SOAP) ---
Subjective Date Seen by a Provider: Jul 06, 2018 Time Seen by a Provider: 08:30 Subjective/Events-last exam Fwup anoxic encephalopathy, DM--insulin requiring, COPD. Doing well--feels like memory is improving. C/O sore to right ankle. Objective Exam Vital Signs Date Time Temp Pulse Resp B/P (MAP) Pulse Ox O2 Delivery O2 Flow Rate FiO2 07/06/18 15:59 98.4 76 20 143/86 (105) 100 Room Air 07/06/18 11:18 79 20 138/89 (105) 100 Room Air 07/06/18 08:53 98.1 07/06/18 08:23 Room Air 07/06/18 05:29 97.2 80 16 141/85 (103) 100 Room Air 07/05/18 21:00 Room Air 07/05/18 17:56 98.3 82 16 133/77 (95) 97 Room Air I & O 07/06/18 07:00 Intake Total 990 ml Balance 990 ml Capillary Refill : General Appearance: No Apparent Distress Respiratory: Lungs Clear Cardiovascular: Regular Rate, Rhythm Gastrointestinal: normal bowel sounds, non tender, soft Extremity: Non Tender, No Calf Tenderness, No Pedal Edema Neurologic/Psychiatric: Alert Skin: Other (right lateral malleolus area with crusted 1cm sore) Results Lab Laboratory Tests 07/05/18 20:26: Glucometer 272H 07/06/18 06:10: Glucometer 151H 07/06/18 11:16: Glucometer 295H 07/06/18 16:42: Glucometer 218H Assessment/Plan Assessment/Plan Assess & Plan/Chief Complaint 1. Anoxic Encephalopathy--ST, OT, PT while on rehab 2. Diabetes mellitus--insulin requiring, on SSI B, will increase levemir dose to 10u 3. History of HTN--currently off medications and BP is stable 4. History of Narcotic Abuse--not requiring pain medications at this time 5. COPD--stable 6. Right lateral malleolus stage 1 pressure sore--start colloid dressing til healed Clinical Quality Measures DVT/VTE Risk/Contraindication: Risk Factor Score Per Nursin RFS Level Per Nursing on Admit: 4+=Very High MIRELA LYLE DO Jul 06, 2018 17:29
--- NOTE | 2018-07-06 18:50 | Wound Care Assessment ---
Wound Care Assessment Date Seen by Provider: Jul 06, 2018 Time Seen by Provider: 18:48 Chief Complaint R ankle ulcer. HPI The patient is a 52 year old female with a healing pressure ulcer of the R lateral ankle. This has been improving by history. The wound base appears dry. Manuka honey dressing ordered. Past Medical History: Admits Diabetes Type II COPD, Anoxic brain injury. Smoking Status: Current Someday Smoker Recreational Drug Use: Yes Alcohol Use: Denies Use Review of Systems Pulmonary: No Dyspnea Cardiovascular: No: Chest Pain Exam Vital Signs Date Time Temp Pulse Resp B/P (MAP) Pulse Ox O2 Delivery O2 Flow Rate FiO2 07/06/18 15:59 98.4 76 20 143/86 (105) 100 Room Air Capillary Refill : General Appearance: no apparent distress HEENT: normal ENT inspection Neck: normal inspection Respiratory: no respiratory distress Skin: other (R lateral ankle - 0.2 x 0.2 x 0.2 cm, base 100% slough, scant s.s. drainage.) Results Laboratory Tests 07/05/18 20:26: Glucometer 272H 07/06/18 06:10: Glucometer 151H 07/06/18 11:16: Glucometer 295H 07/06/18 16:42: Glucometer 218H Assessment/Plan/Dx 1. Healing pressure ulcer, present on admission, R ankle, Stage 2 by evidence available at this time. 2. Diabetes mellitus, Type 2. Plan: Will begin honey alginate dressings, off-load. FABIAN ALEJANDRO MD Jul 06, 2018 18:50
[2018-07-06] MEDS ORDERED: inSUlin DETERMIR 1 UNIT/0.01 ML (LEVEMIR) CHARGE PER UNIT SQ SCH (21:00)
[2018-07-06] MEDS: ENOXAPARIN 40 MG/0.4 ML (LOVENOX) SYR SC SCH (21:46)
[2018-07-07 06:00] VITALS: BP 120/79
--- NOTE | 2018-07-07 08:29 | PM&R Progress Note ---
Subjective HPI/CC On Admission Date Seen by Provider: Jul 07, 2018 Time Seen by Provider: 08:15 CC: Anoxic brain injury recovery HPI: This is a 52-year-old white female clinic patient of Dr. Haider who suffered a hypoglycemic episode and was found down for undetermined amount of time and suffered respiratory failure with anoxic brain injury who was intubated stabilized then extubated but had no return of meaningful function of any of her extremities or brain function who was at a standstill and uncertain of any return of brain function and family uncertain whether they wanted to have a PEG tube placed or any other artificial means of support so [facility] graciously accepted the patient and I was the one that actually transferred her there and she required extensive medical treatment along with NG tube placement for nutritional support and multiple medications to treat aggressive and agitated episodes but she ultimately recovered and although her communication and word finding is still an issue she has started feeding herself and taking care of herself and just starting to walk again. Dr. Haider has been consulted for primary care provider management. She wishes to be DO NOT RESUSCITATE so that order was written. Overall patient appears to be much improved very appreciative of everyone's help and she has already started on therapy and walking with physical therapy. Subjective/Events-last exam She is sleeping Dr. Patel evaluated the wound on her right ankle Her family visited her yesterday Blood sugar satisfactory Review of Systems General: Fatigue Neurological: Confusion Objective Exam Vital Signs Vital Signs Date Time Temp Pulse Resp B/P (MAP) Pulse Ox O2 Delivery O2 Flow Rate FiO2 07/07/18 17:25 98.0 80 18 119/76 (90) 99 Room Air Capillary Refill : General Appearance: No Apparent Distress, WD/WN Respiratory: Chest Non Tender, Lungs Clear, Normal Breath Sounds, No Accessory Muscle Use, No Respiratory Distress Cardiovascular: Regular Rate, Rhythm, No Edema, No Gallop, No JVD, No Murmur, Normal Peripheral Pulses Neurologic/Psychiatric: Other (asleep) Results/Procedures Lab Patient resulted labs reviewed. Assessment/Plan Assessment and Plan Assess & Plan/Chief Complaint Assessment: 1. Hypoglycemia with Encephalopathy 2. Acute Respiratory Failure with respiratory acidosis due to Encephalopathy s/ p extubation 3. UTI hx 4. History of narcotic abuse and kratom abuse 5. DM Plan: Home meds Insulin Monitor closely Ultram only for pain DNR Confusion noted and will need 24/7 care Diagnosis/Problems Diagnosis/Problems (1) Anoxic encephalopathy Status: Chronic (2) Neurocognitive deficits Status: Chronic (3) Altered mental status Status: Chronic Qualifiers: Altered mental status type: unspecified Qualified Codes: R41.82 - Altered mental status, unspecified (4) Hypoglycemia Status: Resolved Resolution Date/Time: 06/06/18 @ 12:44 (5) Acute respiratory failure Status: Resolved Qualifiers: Respiratory failure complication: unspecified whether with hypoxia or hypercapnia Qualified Codes: J96.00 - Acute respiratory failure, unspecified whether with hypoxia or hypercapnia Resolution Date/Time: 07/02/18 @ 22:07 (6) Obesity Status: Chronic Qualifiers: Obesity type: due to excess calories Obesity classification: adult class 2 (BMI 35 - 39.9) Serious obesity comorbidity presence: with serious comorbidity Body mass index: BMI 37.0-37.9 Qualified Codes: E66.01 - Morbid (severe) obesity due to excess calories; Z68.37 - Body mass index (bmi) 37.0- 37.9, adult Clinical Quality Measures DVT/VTE Risk/Contraindication: Risk Factor Score Per Nursin RFS Level Per Nursing on Admit: 4+=Very High SOHAIL HUBER DO Jul 07, 2018 08:29
--- NOTE | 2018-07-07 10:23 | Speech Therapy Daily Note ---
Speech Daily Progress Note Subjective Date Seen by Provider: Jul 07, 2018 Time Seen by Provider: 00:30 Patient was eating her breakfast in the [facility] area. No difficulty noted. Objective Patient completed compensatory strategy training at 90% with minimal cues. Assessment Assessment Current Status: Good Progress Treatment Plan Continue Plan of Care Communication Comprehension: 3 Expression: 3 Social Cognition Social Interaction: 5 Problem Solvin Memory: 2 Speech Short Term Goals Short Term Goals Short Term Goals 1) Patient will complete memory tasks related to her self at 80% or greater. 2) Patient will complete problem solving tasks related to daily tasks at 80% or greater. 3) Patient will recall new information presented related to personal safety within her immediate environment at 80% or greater. 4) Patient will tolerate least restrictive diet level at 90% accuracy. 5) Patient will utilize compensatory strategies as trained at 90% or greater. Speech Room Designer Goals Room Designer Goals 1) Patient will improve her overall cognitive-communication status for safety and independence. 2) Patient will maintain adequate nutrition/hydration via safe effective swallow function. Speech-Plan Patient/Family Goals Patient/Family Goals: Patient plans to live with her daughter post rehab. Treatment Plan Speech Therapy Treatment Plan: Continue Plan of Care Patient is making good progress as a result of skilled ST services. Treatment Duration: Jul 09, 2018 Frequency: 5 times per week Estimated Hrs Per Day: .5 hour per day Rehab Potential: Good Barriers to Learning: Patient has residual effects from anoxia. Pt/Family Agrees to Plan: Yes Safety Risks/Education Teaching Recipient: Patient Teaching Methods: Discussion Response to Teaching: Verbalize Understanding Education Topics Provided: Safety Time Speech Therapy Time In: 09:30 Speech Therapy Time Out: 10:00 Total Billed Time: 30 Billed Treatment Time 1, MAURI Miranda Jul 07, 2018 10:23
--- NOTE | 2018-07-07 11:01 | Physical Therapy Daily Note ---
PT Daily Note-Current Subjective Pt sitting in chair in [facility] with HALL upon arrival. Pt agrees to PT. Pt thanks MOTOR EXPERT several times during tx. Pain Location: No Pain Reported Mental Status Patient Orientation: Person, Place Pt continues to struggle with word finding but is working with ST to improve. Transfers Therapy Code Descriptions/Definitions Functional [place] Measure: 0=Not Assessed/NA 4=Minimal Assistance 1=Total Assistance 5=Supervision or Setup 2=Maximal Assistance 6=Modified [place] 3=Moderate Assistance 7=Complete [place] Therapy Quality Codes: 6 Independent with activity with or without an assistive device 5 Patient requires set up or clean up by helper. Patient completes activity by themselves 4 Supervision or touching assist (CGA). [place] provide cues , steadying assist 3 The helper provides less than half the effort to complete the activity 2 The helper provides more than half the effort to complete the activity 1 Dependent. The helper does all the effort to complete an activity 7 Patient refused to complete or attempt activity 9 The patient did not perform the activity before the current illness or injury 88 Not attempted due to Medical conditions or safety concerns Scootin Supine to/from Sit: 6 Sit to/from Stand: 6 Sit to Lying (QC): 6 Sit to Stand (QC): 6 Weight Bearing Right Lower Extremity: Right Full Weight Bearing Left Lower Extremity: Left Full Weight Bearing Gait Training Does the Patient Walk?: Yes Distance (FIM): 3=150 ft Distance: 300' Walk 10 feet (QC): 5 Walk 50 ft with 2 Turns(QC): 5 Walk 150 ft (QC): 5 Gait Level of Assist: 5 Gait Persons Needed: 1 Gait Assistive Device: None Pt attempts walking w/o AD. Pt loses balance a couple of times during tx but able to self correct. MOTOR EXPERT stays close SBA for safety though. Wheelchair Training Does the Pt Use a Wheelchair?: No Exercises Seated Therapy Exercises: Ankle pumps, Long arc quads, Hip flexion, Kicking activity Seated Reps: 15 NuStep Minutes: 10 NuStep Workload: 4 Treatments Pt transfers from chair to standing w/o AD at Mod I. Pt ambulates in hallway w/ o AD at close SBA. Pt completes Seated Ex in chair followed by NuStep for 10m at WL 4. Pt returns to room to use restroom then rest in bed at end of tx. Pt has all needs met. Assessment Current Status: Good Progress Pt needs VC for redirection during tasks due to memory and cognitive deficits. PT Short Term Goals Short Term Goals Time Frame: Jul 09, 2018 Transfers (B,C,W/C) (FIM): 6 Gait (FIM): 5 Gait Distance Comment: 200' Gait Level of Assist: 5 Gait Assistive Device: FWW PT [facility] Goals Paramedic Instructor Goals PT Paramedic Instructor Goals Time Frame: Jul 23, 2018 Transfers (B,C,W/C) (FIM): 6 Sit to Lying (QC): 6 Lying-Sitting on Side/Bed(QC): 6 Sit to Stand (QC): 6 Rollin Roll Left to Right (QC): 6 Chair/Rrh-in-Wuzll Xfer(QC): 6 Car Transfer (QC): 6 Gait (FIM): 6 Distance: 300' Walk 10 feet (QC): 6 Walk 10ft-Uneven Surface(QC): 6 Walk 50ft with 2 Turns (QC): 6 Walk 150 ft (QC): 6 Gait Level of Assist: 6 Gait Assistive Device: FWW Stairs (FIM): 5 # of Steps: 12 1 Step (curb) (QC): 4 4 Steps (QC): 4 12 Steps (QC): 4 Stairs Level Of Assist: 5 PT Plan Problem List Problem List: Activity Tolerance, Functional Strength, Safety, Balance, Gait Treatment/Plan Treatment Plan: Continue Plan of Care Treatment Plan: Bed Mobility, Education, Functional Activity Carlos, Functional Strength, Group Therapy, Gait, Safety, Therapeutic Exercise, Transfers Treatment Duration: Jul 23, 2018 Frequency: At least 5 of 7 days/Wk (IRF) Estimated Hrs Per Day: 1.5 hours per day Patient and/or Family Agrees t: Yes Safety Risks/Education Patient Education: Gait Training, Transfer Techniques, Correct Positioning, Safety Issues Teaching Recipient: Patient Teaching Methods: Discussion Response to Teaching: Verbalize Understanding Time/GCodes Time In: 1000 Time Out: 1100 Total Billed Treatment Time: 60 Total Billed Treatment 1, GT x2 (25m), EX (20m) & FA (15m) G Codes Necessary: DAKOTAH Gustafson MOTOR EXPERT Jul 07, 2018 11:01
[2018-07-07] MEDS: inSUlin ASPART (NovoLOG) 1 UNIT/0.01 ML (CHARGE PER UNIT) SC SCH ×4 (11:50→20:48)
--- NOTE | 2018-07-07 13:15 | Occupational Ther Daily Note ---
OT Current Status-Daily Note Subjective No pain reported. Appearance Pt. is asleep. Wakes up and agrees to work with OT. Mental Status/Objective Patient Orientation: Person Therapy Code Descriptions/Definitions Functional [place] Measure: 0=Not Assessed/NA 4=Minimal Assistance 1=Total Assistance 5=Supervision or Setup 2=Maximal Assistance 6=Modified [place] 3=Moderate Assistance 7=Complete [place] ADL-Treatment Therapy Code Descriptions/Definitions Functional [place] Measure: 0=Not Assessed/NA 4=Minimal Assistance 1=Total Assistance 5=Supervision or Setup 2=Maximal Assistance 6=Modified [place] 3=Moderate Assistance 7=Complete [place] Therapy Quality Codes: 6 Independent with activity with or without an assistive device 5 Patient requires set up or clean up by helper. Patient completes activity by themselves 4 Supervision or touching assist (CGA). [place] provide cues , steadying assist 3 The helper provides less than half the effort to complete the activity 2 The helper provides more than half the effort to complete the activity 1 Dependent. The helper does all the effort to complete an activity 7 Patient refused to complete or attempt activity 9 The patient did not perform the activity before the current illness or injury 88 Not attempted due to Medical conditions or safety concerns Grooming (FIM): 5 (SBA to stand at sink and brush hair/teeth.) Oral Hygiene (QC): 4 Lower Body Dressing (FIM): 5 (SBA and increased time to don slipper socks and slippers.) Lower Body Dressing (QC): 4 On/Off Footwear (QC): 4 Toileting (FIM): 5 Toileting Hygiene (QC): 4 Transfers (B, C, W/C) (FIM): 5 Toilet/Commode Transfer (FIM): 5 Toilet Transfer (QC): 4 Other Treatment Pt. declines showering but agrees to work with OT. After toileting and grooming in bathroom, pt. agrees to ambulate to dining area. OT and pt. work on reading menu, and writing down what she would like for breakfast. Pt. is able to state what she would like, but is unable to say it correctly. For example, pt. points to "pork sausage" but says "[place] sausage." For scrambled eggs pt. keeps stating "sausage eggs." Pt. attempts to write this down, and is able to write it somewhat, but has difficulty with it. After writing it down, therapy orders breakfast for pt. Pt. would like coffee so OT and pt. walk to kitchen area. Pt. is able to pour coffee into designated cup with OT stabilizing cup. Pt. is shown what drawer the creamer, sugar is in. Pt. is able to retrieve what she would like, and open packages to put into coffee. OT carries coffee back to table for pt. Work on number recognition with playing cards. Pt. is able to state most numbers on the card. However, when she sees a shonda or [place], will state, "kathryn." Pt. seems to know that this is incorrect, and attempts to correct it. Has difficulty saying the correct word and becomes tearful. OT encourages pt. that she is doing well. All needs are met back in room. Education OT Patient Education: Correct positioning, Modified ADL techniques, Progress toward Goal/Update tx plan, Purpose of tx/functional activities, Reviewed precautions, Rehab process, Transfer techniques Teaching Recipient: Patient Teaching Methods: Demonstration, Discussion Response to Teaching: Verbalize Understanding, Return Demonstration OT Short Term Goals Short Term Goals Transfers (B,C,W/C) (FIM): 6 1=Demonstrate adherence to instructed precautions during ADL tasks. 2=Patient will verbalize/demonstrate understanding of assistive devices/ modifications for ADL. 3=Patient will improve strength/tolerance for activity to enable patient to perform ADL's. OT Americanization Teacher Goals Americanization Teacher Goals Time Frame: Jul 16, 2018 Eating (FIM): 7 Eating (QC): 6 Groomin Oral Hygiene (QC): 6 Bathing(FIM): 5 Shower/Bathe Self (QC): 5 Upper Body Dressing(FIM): 6 Upper Body Dressing (QC): 6 Lower Body Dressing(FIM): 6 Lower Body Dressing (QC): 6 On/Off Footwear (QC): 6 Toileting(FIM): 6 Toileting Hygiene (QC): 6 Transfers (B,C,W/C) (FIM): 6 Toilet/Commode Transfer(FIM): 6 Toilet/Commode Transfer (QC): 6 Shower Transfer(FIM): 6 Additional Goals: 1-Demonstrate ADL Tasks, 2-Verbalize Understanding, 3- ImproveStrength/Carlos 1=Demonstrate adherence to instructed precautions during ADL tasks. 2=Patient will verbalize/demonstrate understanding of assistive devices/ modifications for ADL. 3=Patient will improve strength/tolerance for activity to enable patient to perform ADL's. OT Education/Plan Problem List/Assessment Assessment: Decreased Activ Tolerance, Decreased Safety Aware, Impaired Cognition, Impaired I ADL's, Impaired Self-Care Skills, Visual-Perceptual Deficit Discharge Recommendations Plan/Recommendations: Continue POC Treatment Plan/Plan of Care Treatment,Training & Education: Yes Patient would benefit from OT for education, treatment and training to promote independence in ADL's, mobility, safety and/or upper extremity function for ADL' s. Plan of Care: ADL Retraining, Functional Mobility, Group Exercise/Act as Ind, UE Funct Exercise/Act Treatment Duration: Jul 16, 2018 Frequency: At least 5 of 7 days/Wk (IRF) Estimated Hrs Per Day: 1.5 hours per day Agreement: Yes Rehab Potential: Good Time/GCodes Start Time: 08:30 Stop Time: 09:30 Total Time Billed (hr/min): 60 Billed Treatment Time 1, ADL x 30minutes, FA x 30minutes AARON PRAJAPATI OT Jul 07, 2018 13:15
--- NOTE | 2018-07-07 13:22 | Occupational Ther Daily Note ---
OT Current Status-Daily Note Subjective Pt. indicates that her right ankle "hurts." Reports 6/10 pain. Nursing notified for pain medication. Appearance Pt. in bed. Agrees to work with OT. Mental Status/Objective Patient Orientation: Person Therapy Code Descriptions/Definitions Functional [place] Measure: 0=Not Assessed/NA 4=Minimal Assistance 1=Total Assistance 5=Supervision or Setup 2=Maximal Assistance 6=Modified [place] 3=Moderate Assistance 7=Complete [place] ADL-Treatment Therapy Code Descriptions/Definitions Functional [place] Measure: 0=Not Assessed/NA 4=Minimal Assistance 1=Total Assistance 5=Supervision or Setup 2=Maximal Assistance 6=Modified [place] 3=Moderate Assistance 7=Complete [place] Therapy Quality Codes: 6 Independent with activity with or without an assistive device 5 Patient requires set up or clean up by helper. Patient completes activity by themselves 4 Supervision or touching assist (CGA). [place] provide cues , steadying assist 3 The helper provides less than half the effort to complete the activity 2 The helper provides more than half the effort to complete the activity 1 Dependent. The helper does all the effort to complete an activity 7 Patient refused to complete or attempt activity 9 The patient did not perform the activity before the current illness or injury 88 Not attempted due to Medical conditions or safety concerns Lower Body Dressing (FIM): 5 (Pt. dons slipper socks but doffs them to put on regular socks. Seems to struggle a bit due to getting toes caught. However, is able to correct it. Slips on slippers from bed level.) Lower Body Dressing (QC): 4 On/Off Footwear (QC): 4 Transfers (B, C, W/C) (FIM): 5 Other Treatment Pt. ambulated around therapy dining area several times with SBA. Ambulated to laundry area to retrieve clean clothing from dryer. OT carries it for her due to safety concerns with walker. Ambulated back to room and pt. able to put laundry in her closet. Pt. is tearful and thanks OT. All needs are met back in room. Education OT Patient Education: Correct positioning, Modified ADL techniques, Progress toward Goal/Update tx plan, Purpose of tx/functional activities, Reviewed precautions, Rehab process, Transfer techniques Teaching Recipient: Patient Teaching Methods: Demonstration, Discussion Response to Teaching: Verbalize Understanding, Return Demonstration OT Short Term Goals Short Term Goals Transfers (B,C,W/C) (FIM): 6 1=Demonstrate adherence to instructed precautions during ADL tasks. 2=Patient will verbalize/demonstrate understanding of assistive devices/ modifications for ADL. 3=Patient will improve strength/tolerance for activity to enable patient to perform ADL's. OT Proposal Manager Writer Goals Proposal Manager Writer Goals Time Frame: Jul 16, 2018 Eating (FIM): 7 Eating (QC): 6 Groomin Oral Hygiene (QC): 6 Bathing(FIM): 5 Shower/Bathe Self (QC): 5 Upper Body Dressing(FIM): 6 Upper Body Dressing (QC): 6 Lower Body Dressing(FIM): 6 Lower Body Dressing (QC): 6 On/Off Footwear (QC): 6 Toileting(FIM): 6 Toileting Hygiene (QC): 6 Transfers (B,C,W/C) (FIM): 6 Toilet/Commode Transfer(FIM): 6 Toilet/Commode Transfer (QC): 6 Shower Transfer(FIM): 6 Additional Goals: 1-Demonstrate ADL Tasks, 2-Verbalize Understanding, 3- ImproveStrength/Carlos 1=Demonstrate adherence to instructed precautions during ADL tasks. 2=Patient will verbalize/demonstrate understanding of assistive devices/ modifications for ADL. 3=Patient will improve strength/tolerance for activity to enable patient to perform ADL's. OT Education/Plan Problem List/Assessment Assessment: Decreased Activ Tolerance, Impaired I ADL's, Impaired Self-Care Skills, Visual-Perceptual Deficit Discharge Recommendations Plan/Recommendations: Continue POC Treatment Plan/Plan of Care Treatment,Training & Education: Yes Patient would benefit from OT for education, treatment and training to promote independence in ADL's, mobility, safety and/or upper extremity function for ADL' s. Plan of Care: ADL Retraining, Functional Mobility, Group Exercise/Act as Ind, UE Funct Exercise/Act Treatment Duration: Jul 16, 2018 Frequency: At least 5 of 7 days/Wk (IRF) Estimated Hrs Per Day: 1.5 hours per day Agreement: Yes Rehab Potential: Good Time/GCodes Start Time: 11:00 Stop Time: 11:15 Total Time Billed (hr/min): 15 Billed Treatment Time 1, AARON CLARK OT Jul 07, 2018 13:21
--- NOTE | 2018-07-07 15:46 | Physical Therapy Daily Note ---
PT Daily Note-Current Subjective Pt sitting up in bed upon arrival. Pt agrees to PT. Pain Location: No Pain Reported Mental Status Patient Orientation: Person, Place Transfers Therapy Code Descriptions/Definitions Functional [place] Measure: 0=Not Assessed/NA 4=Minimal Assistance 1=Total Assistance 5=Supervision or Setup 2=Maximal Assistance 6=Modified [place] 3=Moderate Assistance 7=Complete [place] Therapy Quality Codes: 6 Independent with activity with or without an assistive device 5 Patient requires set up or clean up by helper. Patient completes activity by themselves 4 Supervision or touching assist (CGA). [place] provide cues , steadying assist 3 The helper provides less than half the effort to complete the activity 2 The helper provides more than half the effort to complete the activity 1 Dependent. The helper does all the effort to complete an activity 7 Patient refused to complete or attempt activity 9 The patient did not perform the activity before the current illness or injury 88 Not attempted due to Medical conditions or safety concerns Scootin Rollin Supine to/from Sit: 6 Sit to/from Stand: 6 Sit to Lying (QC): 6 Sit to Stand (QC): 6 Weight Bearing Right Lower Extremity: Right Full Weight Bearing Left Lower Extremity: Left Full Weight Bearing Gait Training Does the Patient Walk?: Yes Distance (FIM): 3=150 ft Distance: 200' Walk 10 feet (QC): 4 Walk 50 ft with 2 Turns(QC): 4 Walk 150 ft (QC): 4 Gait Level of Assist: 4 Gait Persons Needed: 1 Gait Assistive Device: Handheld Assist Pt is more fatigued this afternoon and uses [facility] for balance. Wheelchair Training Does the Pt Use a Wheelchair?: No Treatments Pt transfers at [facility] and ambulates in hallway w/o AD at [facility] for assistance with balance. Assessment Current Status: Good Progress Pt is fatigued this afternoon. PT Short Term Goals Short Term Goals Time Frame: Jul 09, 2018 Transfers (B,C,W/C) (FIM): 6 Gait (FIM): 5 Gait Distance Comment: 200' Gait Level of Assist: 5 Gait Assistive Device: FWW PT Long-Term Goals Long-Term Goals PT Track And Field Coach Goals Time Frame: Jul 23, 2018 Transfers (B,C,W/C) (FIM): 6 Sit to Lying (QC): 6 Lying-Sitting on Side/Bed(QC): 6 Sit to Stand (QC): 6 Rollin Roll Left to Right (QC): 6 Chair/Wfg-he-Uphsq Xfer(QC): 6 Car Transfer (QC): 6 Gait (FIM): 6 Distance: 300' Walk 10 feet (QC): 6 Walk 10ft-Uneven Surface(QC): 6 Walk 50ft with 2 Turns (QC): 6 Walk 150 ft (QC): 6 Gait Level of Assist: 6 Gait Assistive Device: FWW Stairs (FIM): 5 # of Steps: 12 1 Step (curb) (QC): 4 4 Steps (QC): 4 12 Steps (QC): 4 Stairs Level Of Assist: 5 PT Plan Problem List Problem List: Activity Tolerance, Functional Strength, Safety, Balance, Gait Treatment/Plan Treatment Plan: Continue Plan of Care Treatment Plan: Bed Mobility, Education, Functional Activity Carlos, Functional Strength, Group Therapy, Gait, Safety, Therapeutic Exercise, Transfers Treatment Duration: Jul 23, 2018 Frequency: At least 5 of 7 days/Wk (IRF) Estimated Hrs Per Day: 1.5 hours per day Patient and/or Family Agrees t: Yes Safety Risks/Education Patient Education: Gait Training, Correct Positioning, Safety Issues Teaching Recipient: Patient Teaching Methods: Discussion Response to Teaching: Verbalize Understanding Time/GCodes Time In: 1450 Time Out: 1505 Total Billed Treatment Time: 15 Total Billed Treatment 1, GT (15m) G Codes Necessary: DAKOTAH Gustafson INSOLE PRESSER Jul 07, 2018 15:46
[2018-07-07 17:25] VITALS: BP 119/76
--- NOTE | 2018-07-07 18:23 | Progress Note (SOAP) ---
Subjective Date Seen by a Provider: Jul 07, 2018 Time Seen by a Provider: 12:55 Subjective/Events-last exam Fwup anoxic encephalopathy, DM--insulin requiring, COPD. Tearful today. States she feels like she needs her cymbalta back. Objective Exam Vital Signs Date Time Temp Pulse Resp B/P (MAP) Pulse Ox O2 Delivery O2 Flow Rate FiO2 07/07/18 17:25 98.0 80 18 119/76 (90) 99 Room Air 07/07/18 08:46 Room Air 07/07/18 06:00 98.4 69 16 120/79 (93) 97 Room Air 07/06/18 21:00 Room Air I & O 07/07/18 07:00 Intake Total 1300 ml Balance 1300 ml Capillary Refill : General Appearance: Mild Distress (tearful) Respiratory: Lungs Clear Cardiovascular: Regular Rate, Rhythm Neurologic/Psychiatric: Alert, Oriented x3, Depressed Affect Results Lab Laboratory Tests 07/06/18 21:39: Glucometer 280H 07/07/18 06:30: Glucometer 181H 07/07/18 11:44: Glucometer 329H 07/07/18 16:27: Glucometer 221H Assessment/Plan Assessment/Plan Assess & Plan/Chief Complaint 1. Anoxic Encephalopathy--ST, OT, PT while on rehab 2. Diabetes mellitus--insulin requiring, on SSI B, will increase levemir dose to 15u 3. History of HTN--currently off medications and BP is stable 4. History of Narcotic Abuse--not requiring pain medications at this time 5. COPD--stable 6. Right lateral malleolus stage 1 pressure sore--dressing in place 7. Recurrent Depression--restart cymbalta at 20mg daily Clinical Quality Measures DVT/VTE Risk/Contraindication: Risk Factor Score Per Nursin RFS Level Per Nursing on Admit: 4+=Very High MIRELA LYLE DO Jul 07, 2018 18:23
[2018-07-07] MEDS: DULoxetine 20 MG (CYMBALTA) CAP PO SCH (20:46)
[2018-07-07] MEDS: ENOXAPARIN 40 MG/0.4 ML (LOVENOX) SYR SC SCH (20:47)
[2018-07-07] MEDS: inSUlin DETERMIR 1 UNIT/0.01 ML (LEVEMIR) CHARGE PER UNIT SQ SCH (20:48)
[2018-07-08 05:02] VITALS: BP 130/82
[2018-07-08] MEDS: inSUlin ASPART (NovoLOG) 1 UNIT/0.01 ML (CHARGE PER UNIT) SC SCH ×4 (05:30→20:28)
[2018-07-08] MEDS: VITAMIN D3 1,000 UNITS (CHOLECALCIFEROL) TABLET PO SCH (08:46)
--- NOTE | 2018-07-08 09:12 | PM&R Progress Note ---
Subjective HPI/CC On Admission Date Seen by Provider: Jul 08, 2018 Time Seen by Provider: 09:15 CC: Anoxic brain injury recovery HPI: This is a 52-year-old white female clinic patient of Dr. Haider who suffered a hypoglycemic episode and was found down for undetermined amount of time and suffered respiratory failure with anoxic brain injury who was intubated stabilized then extubated but had no return of meaningful function of any of her extremities or brain function who was at a standstill and uncertain of any return of brain function and family uncertain whether they wanted to have a PEG tube placed or any other artificial means of support so [place] graciously accepted the patient and I was the one that actually transferred her there and she required extensive medical treatment along with NG tube placement for nutritional support and multiple medications to treat aggressive and agitated episodes but she ultimately recovered and although her communication and word finding is still an issue she has started feeding herself and taking care of herself and just starting to walk again. Dr. Haider has been consulted for primary care provider management. She wishes to be DO NOT RESUSCITATE so that order was written. Overall patient appears to be much improved very appreciative of everyone's help and she has already started on therapy and walking with physical therapy. Subjective/Events-last exam Patient about the same Repeats herself a lot Will need 24/ care with supervision Sometimes can't find the words No pain is reported Right ankle wound managed by Wound care Review of Systems General: Fatigue Neurological: Confusion Objective Exam Vital Signs Vital Signs Date Time Temp Pulse Resp B/P (MAP) Pulse Ox O2 Delivery O2 Flow Rate FiO2 07/08/18 05:02 97.8 73 20 130/82 (98) 98 07/07/18 21:00 Room Air Capillary Refill : Less Than 3 Seconds General Appearance: No Apparent Distress, WD/WN, Chronically ill Respiratory: Chest Non Tender, Lungs Clear, Normal Breath Sounds, No Accessory Muscle Use, No Respiratory Distress Cardiovascular: Regular Rate, Rhythm, No Edema, No Gallop, No JVD, No Murmur, Normal Peripheral Pulses Neurologic/Psychiatric: Alert, Oriented x3, No Motor/Sensory Deficits, Normal Mood/Affect, Disoriented Results/Procedures Lab Patient resulted labs reviewed. Assessment/Plan Assessment and Plan Assess & Plan/Chief Complaint Assessment: 1. Hypoglycemia with Encephalopathy 2. Acute Respiratory Failure with respiratory acidosis due to Encephalopathy s/ p extubation 3. UTI hx 4. History of narcotic abuse and kratom abuse 5. DM Plan: Home meds Insulin Monitor closely Ultram only for pain DNR Confusion noted and will need 30/12 care Diagnosis/Problems Diagnosis/Problems (1) Anoxic encephalopathy Status: Chronic (2) Neurocognitive deficits Status: Chronic (3) Altered mental status Status: Chronic Qualifiers: Altered mental status type: unspecified Qualified Codes: R41.82 - Altered mental status, unspecified (4) Hypoglycemia Status: Resolved Resolution Date/Time: 06/06/18 @ 12:44 (5) Acute respiratory failure Status: Resolved Qualifiers: Respiratory failure complication: unspecified whether with hypoxia or hypercapnia Qualified Codes: J96.00 - Acute respiratory failure, unspecified whether with hypoxia or hypercapnia Resolution Date/Time: 07/02/18 @ 22:07 (6) Obesity Status: Chronic Qualifiers: Obesity type: due to excess calories Obesity classification: adult class 2 (BMI 35 - 39.9) Serious obesity comorbidity presence: with serious comorbidity Body mass index: BMI 37.0-37.9 Qualified Codes: E66.01 - Morbid (severe) obesity due to excess calories; Z68.37 - Body mass index (bmi) 37.0- 37.9, adult Clinical Quality Measures DVT/VTE Risk/Contraindication: Risk Factor Score Per Nursin RFS Level Per Nursing on Admit: 4+=Very High SOHAIL HUBER DO Jul 08, 2018 09:12
--- NOTE | 2018-07-08 10:57 | Physical Therapy Daily Note ---
PT Daily Note-Current Subjective Pt walking with FWW in Therapy [facility] area. Pt agrees to PT. Pain Location: No Pain Reported Mental Status Patient Orientation: Person, Place, Situation Transfers Therapy Code Descriptions/Definitions Functional [place] Measure: 0=Not Assessed/NA 4=Minimal Assistance 1=Total Assistance 5=Supervision or Setup 2=Maximal Assistance 6=Modified [place] 3=Moderate Assistance 7=Complete [place] Therapy Quality Codes: 6 Independent with activity with or without an assistive device 5 Patient requires set up or clean up by helper. Patient completes activity by themselves 4 Supervision or touching assist (CGA). [place] provide cues , steadying assist 3 The helper provides less than half the effort to complete the activity 2 The helper provides more than half the effort to complete the activity 1 Dependent. The helper does all the effort to complete an activity 7 Patient refused to complete or attempt activity 9 The patient did not perform the activity before the current illness or injury 88 Not attempted due to Medical conditions or safety concerns Scootin Rollin Supine to/from Sit: 5 Sit to/from Stand: 5 Sit to Lying (QC): 5 Sit to Stand (QC): 5 Weight Bearing Right Lower Extremity: Right Full Weight Bearing Left Lower Extremity: Left Full Weight Bearing Gait Training Does the Patient Walk?: Yes Distance (FIM): 3=150 ft Distance: 600' Walk 10 feet (QC): 5 Walk 50 ft with 2 Turns(QC): 5 Walk 150 ft (QC): 5 Gait Level of Assist: 5 Gait Persons Needed: 1 Gait Assistive Device: FWW Pt ambulates both w/[facility] and at [facility] to improve balance. Pt is able to self right any miscue. Wheelchair Training Does the Pt Use a Wheelchair?: No Exercises NuStep Minutes: 15 NuStep Workload: 4 Treatments Pt ambulates in hallway and Therapy [facility] both with & w/o FWW. Pt fatigues after first ambulation and FWW is used to continue for safety. Pt uses NuStep for 15m at [facility] 4. Pt returns to room at end of tx to use restroom then rest Supine in bed. Pt has all needs met. Assessment Current Status: Good Progress Pt needs occasional redirection with directions of tasks. Pt fatigues and needs occasional rest breaks. PT Short Term Goals Short Term Goals Time Frame: Jul 09, 2018 Transfers (B,C,W/C) (FIM): 6 Gait (FIM): 5 Gait Distance Comment: 200' Gait Level of Assist: 5 Gait Assistive Device: FWW PT Residential Goals Broadcast Supervisor Goals PT Residential Goals Time Frame: Jul 23, 2018 Transfers (B,C,W/C) (FIM): 6 Sit to Lying (QC): 6 Lying-Sitting on Side/Bed(QC): 6 Sit to Stand (QC): 6 Rollin Roll Left to Right (QC): 6 Chair/Eet-kf-Fmvbf Xfer(QC): 6 Car Transfer (QC): 6 Gait (FIM): 6 Distance: 300' Walk 10 feet (QC): 6 Walk 10ft-Uneven Surface(QC): 6 Walk 50ft with 2 Turns (QC): 6 Walk 150 ft (QC): 6 Gait Level of Assist: 6 Gait Assistive Device: FWW Stairs (FIM): 5 # of Steps: 12 1 Step (curb) (QC): 4 4 Steps (QC): 4 12 Steps (QC): 4 Stairs Level Of Assist: 5 PT Plan Problem List Problem List: Activity Tolerance, Safety, Balance, Gait Treatment/Plan Treatment Plan: Continue Plan of Care Treatment Plan: Bed Mobility, Education, Functional Activity Carlos, Functional Strength, Group Therapy, Gait, Safety, Therapeutic Exercise, Transfers Treatment Duration: Jul 23, 2018 Frequency: At least 5 of 7 days/Wk (IRF) Estimated Hrs Per Day: 1.5 hours per day Patient and/or Family Agrees t: Yes Safety Risks/Education Patient Education: Gait Training, Transfer Techniques, Correct Positioning, Safety Issues Teaching Recipient: Patient Teaching Methods: Discussion Response to Teaching: Reinforcement Needed Time/GCodes Time In: 1000 Time Out: 1045 Total Billed Treatment Time: 45 Total Billed Treatment 1, GT (15m), EX (15m) & FA (15m) G Codes Necessary: DAKOTAH Gustafson ALARM SERVICE TECHNICIAN Jul 08, 2018 10:57
--- NOTE | 2018-07-08 11:02 | Speech Therapy Daily Note ---
Speech Daily Progress Note Subjective Date Seen by Provider: Jul 08, 2018 Time Seen by Provider: 00:30 Patient was resting in her room. She had just finished a shower with OT. Objective Patient completed simple conversational tasks with 70% accuracy. Patient has improved significantly, however she does perseverate on words presented in questions. Assessment Assessment Current Status: Good Progress Treatment Plan Continue Plan of Care Communication Comprehension: 3 Expression: 3 Social Cognition Social Interaction: 5 Problem Solvin Memory: 2 Speech Short Term Goals Short Term Goals Short Term Goals 1) Patient will complete memory tasks related to her self at 80% or greater. 2) Patient will complete problem solving tasks related to daily tasks at 80% or greater. 3) Patient will recall new information presented related to personal safety within her immediate environment at 80% or greater. 4) Patient will tolerate least restrictive diet level at 90% accuracy. 5) Patient will utilize compensatory strategies as trained at 90% or greater. Speech Chcf Goals Tax Preparer Goals 1) Patient will improve her overall cognitive-communication status for safety and independence. 2) Patient will maintain adequate nutrition/hydration via safe effective swallow function. Speech-Plan Patient/Family Goals Patient/Family Goals: Patient plans to go to her daughter's to live temporarily post rehab. Treatment Plan Speech Therapy Treatment Plan: Continue Plan of Care Patient has made good progress as a result of skilled ST services. Treatment Duration: Jul 10, 2018 Frequency: 5 times per week Estimated Hrs Per Day: .5 hour per day Rehab Potential: Good Barriers to Learning: Patient has expressive communication deficit. Pt/Family Agrees to Plan: Yes Safety Risks/Education Teaching Recipient: Patient Teaching Methods: Discussion Response to Teaching: Verbalize Understanding Education Topics Provided: Safety within her room. Time Speech Therapy Time In: 09:30 Speech Therapy Time Out: 10:00 Total Billed Time: 30 Billed Treatment Time 1, MAURI Sales Jul 08, 2018 11:02
--- NOTE | 2018-07-08 11:49 | Occupational Ther Daily Note ---
OT Current Status-Daily Note Subjective Pt. states that she is tired. Appearance Pt. is asleep when OT enters room. Agrees to work with therapist. Mental Status/Objective Patient Orientation: Person Therapy Code Descriptions/Definitions Functional [place] Measure: 0=Not Assessed/NA 4=Minimal Assistance 1=Total Assistance 5=Supervision or Setup 2=Maximal Assistance 6=Modified [place] 3=Moderate Assistance 7=Complete [place] ADL-Treatment Therapy Code Descriptions/Definitions Functional [place] Measure: 0=Not Assessed/NA 4=Minimal Assistance 1=Total Assistance 5=Supervision or Setup 2=Maximal Assistance 6=Modified [place] 3=Moderate Assistance 7=Complete [place] Therapy Quality Codes: 6 Independent with activity with or without an assistive device 5 Patient requires set up or clean up by helper. Patient completes activity by themselves 4 Supervision or touching assist (CGA). [place] provide cues , steadying assist 3 The helper provides less than half the effort to complete the activity 2 The helper provides more than half the effort to complete the activity 1 Dependent. The helper does all the effort to complete an activity 7 Patient refused to complete or attempt activity 9 The patient did not perform the activity before the current illness or injury 88 Not attempted due to Medical conditions or safety concerns Eating (FIM): 5 Eating (QC): 4 Grooming (FIM): 5 (SBA standing at sink to brush hair and teeth.) Oral Hygiene (QC): 4 Bathing (FIM): 5 (SBA to wash all parts in shower.) Shower/Bathe Self (QC): 4 Upper Body (FIM): 5 Upper Body Dressing (QC): 5 Lower Body Dressing (FIM): 5 Lower Body Dressing (QC): 4 On/Off Footwear (QC): 4 Transfers (B, C, W/C) (FIM): 5 (SBA with walker. Pt. requires cues for safety at times.) Shower Transfer(FIM): 5 Other Treatment After ADLs in room, pt. and OT ambulated to laundry room. Pt. able to put laundry in tub and pour in soap. However, stood and looked at knobs and did not know how to set them. This could have been due to vision or reading. OT did this for her. After this, ambulated to therapy gym. Tolerated 7 minutes on armbike at mod resistance to increase overall strength with daily tasks. Ambulated back to room with all needs met. Education OT Patient Education: Correct positioning, Exercise program, Modified ADL techniques, Progress toward Goal/Update tx plan, Purpose of tx/functional activities, Reviewed precautions, Rehab process, Transfer techniques Teaching Recipient: Patient Teaching Methods: Demonstration, Discussion Response to Teaching: Verbalize Understanding, Return Demonstration OT Short Term Goals Short Term Goals Transfers (B,C,W/C) (FIM): 6 1=Demonstrate adherence to instructed precautions during ADL tasks. 2=Patient will verbalize/demonstrate understanding of assistive devices/ modifications for ADL. 3=Patient will improve strength/tolerance for activity to enable patient to perform ADL's. OT Group Home Goals [employer] Goals Time Frame: Jul 16, 2018 Eating (FIM): 7 Eating (QC): 6 Groomin Oral Hygiene (QC): 6 Bathing(FIM): 5 Shower/Bathe Self (QC): 5 Upper Body Dressing(FIM): 6 Upper Body Dressing (QC): 6 Lower Body Dressing(FIM): 6 Lower Body Dressing (QC): 6 On/Off Footwear (QC): 6 Toileting(FIM): 6 Toileting Hygiene (QC): 6 Transfers (B,C,W/C) (FIM): 6 Toilet/Commode Transfer(FIM): 6 Toilet/Commode Transfer (QC): 6 Shower Transfer(FIM): 6 Additional Goals: 1-Demonstrate ADL Tasks, 2-Verbalize Understanding, 3- ImproveStrength/Carlos 1=Demonstrate adherence to instructed precautions during ADL tasks. 2=Patient will verbalize/demonstrate understanding of assistive devices/ modifications for ADL. 3=Patient will improve strength/tolerance for activity to enable patient to perform ADL's. OT Education/Plan Problem List/Assessment Assessment: Decreased Activ Tolerance, Impaired Cognition, Impaired I ADL's, Impaired Self-Care Skills, Visual-Perceptual Deficit Discharge Recommendations Plan/Recommendations: Continue POC Therapy D/C Recommendations: 24 hr Supervision Treatment Plan/Plan of Care Treatment,Training & Education: Yes Patient would benefit from OT for education, treatment and training to promote independence in ADL's, mobility, safety and/or upper extremity function for ADL' s. Plan of Care: ADL Retraining, Functional Mobility, Group Exercise/Act as Ind, UE Funct Exercise/Act Treatment Duration: Jul 16, 2018 Frequency: At least 5 of 7 days/Wk (IRF) Estimated Hrs Per Day: 1.5 hours per day Agreement: Yes Rehab Potential: Good Time/GCodes Start Time: 08:30 Stop Time: 09:30 Total Time Billed (hr/min): 60 Billed Treatment Time 1, ADL x 45minutes, Ex x 15minutes AARON PRAJAPATI OT Jul 08, 2018 11:49
--- NOTE | 2018-07-08 11:54 | Occupational Ther Daily Note ---
OT Current Status-Daily Note Subjective Pt. asleep but awakes and agrees to work with OT. Appearance Pt. in bed asleep. Agrees to work with OT. Mental Status/Objective Patient Orientation: Person Therapy Code Descriptions/Definitions Functional [place] Measure: 0=Not Assessed/NA 4=Minimal Assistance 1=Total Assistance 5=Supervision or Setup 2=Maximal Assistance 6=Modified [place] 3=Moderate Assistance 7=Complete [place] ADL-Treatment Therapy Code Descriptions/Definitions Functional [place] Measure: 0=Not Assessed/NA 4=Minimal Assistance 1=Total Assistance 5=Supervision or Setup 2=Maximal Assistance 6=Modified [place] 3=Moderate Assistance 7=Complete [place] Therapy Quality Codes: 6 Independent with activity with or without an assistive device 5 Patient requires set up or clean up by helper. Patient completes activity by themselves 4 Supervision or touching assist (CGA). [place] provide cues , steadying assist 3 The helper provides less than half the effort to complete the activity 2 The helper provides more than half the effort to complete the activity 1 Dependent. The helper does all the effort to complete an activity 7 Patient refused to complete or attempt activity 9 The patient did not perform the activity before the current illness or injury 88 Not attempted due to Medical conditions or safety concerns Transfers (B, C, W/C) (FIM): 5 Other Treatment Pt. ambulated to dining area with SBA with walker. Sat at dining table and OT placed therapy peg task in front of her. OT placed 5 colors of pegs in front of pt. and asked her to match the pegs. Pt. had great difficulty doing this. At times, could place the correct color, but overall had difficult. No reported color blindness or other co-morbid visual issues. Pt. demonstrates significant visual perceptual deficit. Ambulated back to room and all needs are met. Education OT Patient Education: Correct positioning, Modified ADL techniques, Progress toward Goal/Update tx plan, Purpose of tx/functional activities, Reviewed precautions, Rehab process, Transfer techniques Teaching Recipient: Patient Teaching Methods: Demonstration, Discussion Response to Teaching: Verbalize Understanding, Return Demonstration OT Short Term Goals Short Term Goals Transfers (B,C,W/C) (FIM): 6 1=Demonstrate adherence to instructed precautions during ADL tasks. 2=Patient will verbalize/demonstrate understanding of assistive devices/ modifications for ADL. 3=Patient will improve strength/tolerance for activity to enable patient to perform ADL's. OT Detention Goals Detention Goals Time Frame: Jul 16, 2018 Eating (FIM): 7 Eating (QC): 6 Groomin Oral Hygiene (QC): 6 Bathing(FIM): 5 Shower/Bathe Self (QC): 5 Upper Body Dressing(FIM): 6 Upper Body Dressing (QC): 6 Lower Body Dressing(FIM): 6 Lower Body Dressing (QC): 6 On/Off Footwear (QC): 6 Toileting(FIM): 6 Toileting Hygiene (QC): 6 Transfers (B,C,W/C) (FIM): 6 Toilet/Commode Transfer(FIM): 6 Toilet/Commode Transfer (QC): 6 Shower Transfer(FIM): 6 Additional Goals: 1-Demonstrate ADL Tasks, 2-Verbalize Understanding, 3- ImproveStrength/Carlos 1=Demonstrate adherence to instructed precautions during ADL tasks. 2=Patient will verbalize/demonstrate understanding of assistive devices/ modifications for ADL. 3=Patient will improve strength/tolerance for activity to enable patient to perform ADL's. OT Education/Plan Problem List/Assessment Assessment: Impaired I ADL's, Impaired Self-Care Skills, Visual-Perceptual Deficit Discharge Recommendations Plan/Recommendations: Continue POC Therapy D/C Recommendations: 24 hr Supervision Treatment Plan/Plan of Care Treatment,Training & Education: Yes Patient would benefit from OT for education, treatment and training to promote independence in ADL's, mobility, safety and/or upper extremity function for ADL' s. Plan of Care: ADL Retraining, Functional Mobility, Group Exercise/Act as Ind, UE Funct Exercise/Act Treatment Duration: Jul 16, 2018 Frequency: At least 5 of 7 days/Wk (IRF) Estimated Hrs Per Day: 1.5 hours per day Agreement: Yes Rehab Potential: Good Time/GCodes Start Time: 11:00 Stop Time: 11:15 Total Time Billed (hr/min): 15 Billed Treatment Time 1, FA x 15minutes AARON PRAJAPATI OT Jul 08, 2018 11:54
--- NOTE | 2018-07-08 14:21 | NUR ---
Weekly team conference Discussed team conference with patient's daughter, Boo Nguyen. Boo reports that she and her sister have moved all of her mother's belongings out of her apartment at the [facility] [place]. The plan is for Briseyda to eventually move in with her daughter, Alla Amaya. Boo reports the patient was receiving SKIL services before and is interested in increasing hours if possible. Boo states she can be with her mother from 1000 to 1500, but is needing help from [phone] to 1000 and [phone], while Alla is at work and Boo is taking care of her children. Boo is requesting short term SNF placement for her mother until they can get her room ready at Alla's house and check on increasing SKIL hours as the team does recommend 24 hour supervision. Boo reports her grandmother currently resides at [facility] and would like a referral sent there.
--- NOTE | 2018-07-08 15:46 | Physical Therapy Daily Note ---
PT Daily Note-Current Subjective Pt laying Supine in bed upon arrival. Pt agrees to PT. Pain Location: No Pain Reported Mental Status Patient Orientation: Person, Place Transfers Therapy Code Descriptions/Definitions Functional [place] Measure: 0=Not Assessed/NA 4=Minimal Assistance 1=Total Assistance 5=Supervision or Setup 2=Maximal Assistance 6=Modified [place] 3=Moderate Assistance 7=Complete [place] Therapy Quality Codes: 6 Independent with activity with or without an assistive device 5 Patient requires set up or clean up by helper. Patient completes activity by themselves 4 Supervision or touching assist (CGA). [place] provide cues , steadying assist 3 The helper provides less than half the effort to complete the activity 2 The helper provides more than half the effort to complete the activity 1 Dependent. The helper does all the effort to complete an activity 7 Patient refused to complete or attempt activity 9 The patient did not perform the activity before the current illness or injury 88 Not attempted due to Medical conditions or safety concerns Scootin Rollin Supine to/from Sit: 6 Sit to/from Stand: 5 Sit to Lying (QC): 5 Sit to Stand (QC): 5 Weight Bearing Right Lower Extremity: Right Full Weight Bearing Left Lower Extremity: Left Full Weight Bearing Gait Training Does the Patient Walk?: Yes Distance (FIM): 3=150 ft Distance: 250' Walk 10 feet (QC): 5 Walk 50 ft with 2 Turns(QC): 5 Walk 150 ft (QC): 5 Gait Level of Assist: 5 Gait Persons Needed: 1 Gait Assistive Device: FWW Pt uses FWW this afternoon due to fatigue. Wheelchair Training Does the Pt Use a Wheelchair?: No Exercises Supine Ex: Ankle pumps, Quad Set, Hip abd/add Supine Reps: 15 Seated Therapy Exercises: Ankle pumps, Long arc quads, Hip flexion, Kicking activity Seated Reps: 15 Treatments Pt completes Supine Ex then needs to use restroom. Pt transfers from bed to standing using FWW at SBA. Pt returns to EOB after toileting and completes Seated Ex. Pt ambulates in hallway using FWW at SBA. Pt returns to EOB to rest at end of tx with all needs met. Assessment Current Status: Good Progress Pt has moments to confusion and needs redirection. PT Short Term Goals Short Term Goals Time Frame: Jul 09, 2018 Transfers (B,C,W/C) (FIM): 6 Gait (FIM): 5 Gait Distance Comment: 200' Gait Level of Assist: 5 Gait Assistive Device: FWW PT [facility] Goals Child'S Nurse Goals PT Child'S Nurse Goals Time Frame: Jul 23, 2018 Transfers (B,C,W/C) (FIM): 6 Sit to Lying (QC): 6 Lying-Sitting on Side/Bed(QC): 6 Sit to Stand (QC): 6 Rollin Roll Left to Right (QC): 6 Chair/Xex-jd-Tsios Xfer(QC): 6 Car Transfer (QC): 6 Gait (FIM): 6 Distance: 300' Walk 10 feet (QC): 6 Walk 10ft-Uneven Surface(QC): 6 Walk 50ft with 2 Turns (QC): 6 Walk 150 ft (QC): 6 Gait Level of Assist: 6 Gait Assistive Device: FWW Stairs (FIM): 5 # of Steps: 12 1 Step (curb) (QC): 4 4 Steps (QC): 4 12 Steps (QC): 4 Stairs Level Of Assist: 5 PT Plan Problem List Problem List: Activity Tolerance, Safety, Balance, Gait Treatment/Plan Treatment Plan: Continue Plan of Care Treatment Plan: Bed Mobility, Education, Functional Activity Carlos, Functional Strength, Group Therapy, Gait, Safety, Therapeutic Exercise, Transfers Treatment Duration: Jul 23, 2018 Frequency: At least 5 of 7 days/Wk (IRF) Estimated Hrs Per Day: 1.5 hours per day Patient and/or Family Agrees t: Yes Safety Risks/Education Patient Education: Gait Training, Transfer Techniques, Correct Positioning, Safety Issues Teaching Recipient: Patient Teaching Methods: Discussion Response to Teaching: Reinforcement Needed Time/GCodes Time In: 1400 Time Out: 1430 Total Billed Treatment Time: 30 Total Billed Treatment 1, FA (15m) & EX (15m) G Codes Necessary: DAKOTAH Gustafson AOC PLANS INTELLIGENCE OFFICER CHIEF Jul 08, 2018 15:46
[2018-07-08 18:00] VITALS: BP 132/82
--- NOTE | 2018-07-08 18:42 | Progress Note (SOAP) ---
Subjective Date Seen by a Provider: Jul 08, 2018 Time Seen by a Provider: 12:30 Subjective/Events-last exam Fwup anoxic encephalopathy, DM--insulin requiring, COPD. Resting in bed--states worn out form morning therapies. Objective Exam Vital Signs Date Time Temp Pulse Resp B/P (MAP) Pulse Ox O2 Delivery O2 Flow Rate FiO2 07/08/18 18:00 98.0 72 20 132/82 (99) 98 Room Air 07/08/18 09:00 Room Air 07/08/18 05:02 97.8 73 20 130/82 (98) 98 07/07/18 21:00 Room Air I & O 07/08/18 07:00 Intake Total 1650 ml Balance 1650 ml Capillary Refill : Less Than 3 Seconds General Appearance: No Apparent Distress Respiratory: Lungs Clear Cardiovascular: Regular Rate, Rhythm Neurologic/Psychiatric: Alert, Oriented x3 Results Lab Laboratory Tests 07/07/18 20:36: Glucometer 234H 07/08/18 05:13: Glucometer 128H 07/08/18 10:54: Glucometer 280H 07/08/18 17:07: Glucometer 198H Assessment/Plan Assessment/Plan Assess & Plan/Chief Complaint 1. Anoxic Encephalopathy--ST, OT, PT while on rehab 2. Diabetes mellitus--insulin requiring, on levemir and SS B 3. History of HTN--currently off medications and BP is stable 4. History of Narcotic Abuse--not requiring pain medications at this time 5. COPD--stable 6. Right lateral malleolus stage 1 pressure sore--dressing in place 7. Recurrent Depression--restarted cymbalta at 20mg daily Clinical Quality Measures DVT/VTE Risk/Contraindication: Risk Factor Score Per Nursin RFS Level Per Nursing on Admit: 4+=Very High MIRELA LYLE DO Jul 08, 2018 18:42
[2018-07-08] MEDS: inSUlin DETERMIR 1 UNIT/0.01 ML (LEVEMIR) CHARGE PER UNIT SQ SCH (20:28)
[2018-07-08] MEDS: DULoxetine 20 MG (CYMBALTA) CAP PO SCH (20:28)
[2018-07-08] MEDS: ENOXAPARIN 40 MG/0.4 ML (LOVENOX) SYR SC SCH (20:29)
[2018-07-09 05:06] VITALS: BP 150/80
[2018-07-09] MEDS: inSUlin ASPART (NovoLOG) 1 UNIT/0.01 ML (CHARGE PER UNIT) SC SCH ×2 (05:15→12:43)
[2018-07-09] MEDS: VITAMIN D3 1,000 UNITS (CHOLECALCIFEROL) TABLET PO SCH (08:02)
[2018-07-09] MEDS ORDERED: CARV25TA PO (10:17)
[2018-07-09] MEDS ORDERED: INSU100V5 SQ (10:17)
[2018-07-09] MEDS ORDERED: TRAM50TA2 PO (10:17)
[2018-07-09] MEDS ORDERED: DULO20CA PO (10:17)
[2018-07-09] MEDS ORDERED: INSU100V16 SC (10:17)
--- NOTE | 2018-07-09 10:21 | Discharge Inst-Skilled Nursing ---
Discharge Inst-Skilled NF Patient Instructions Patient Problems: Anoxic brain injury DM Hypoglycemia Goal: Return to independent living Consult/Follow Up/Orders Follow Up Appt.: Dr Haider in 2 [facility] Skilled NF Admit to: [facility] Certification ([facility]) I certify that SNF services are required to be given on an inpatient basis because of the above named patient's need for fpc care on a continuing basis for the conditions(s) for which he/she was receiving inpatient hospital services prior to his/her transfer to the SNF. Group Home Facility Order: Nursing Services, Taxation Consultant-Evaluate & Treat, Physical Therapy-Evaluate & Treat, Speech Language-Evaluate & Treat Discharge Diet: ADA Diet Daily Activity as Tolerated: Yes New & Resume Previous Orders Ashlee Mercado Jul 09, 2018 10:20 ASHLEE MERCADO DO Jul 09, 2018 10:21
--- NOTE | 2018-07-09 10:23 | Discharge Summary ---
Diagnosis/Chief Complaint Date of Admission Jul 02, 2018 at 09:40 Date of Discharge Discharge Date: Jul 09, 2018 Discharge Diagnosis Assessment: 1. Hypoglycemia with Encephalopathy 2. Acute Respiratory Failure with respiratory acidosis due to Encephalopathy s/ p extubation 3. UTI hx 4. History of narcotic abuse and kratom abuse 5. DM Plan: Home meds Insulin Monitor closely Ultram only for pain DNR Confusion noted and will need 24/7 care Discharge Summary Discharge Physical Examination Allergies: Coded Allergies: codeine (Verified Allergy, Mild, ITCHING, Pt has received Lortab in the past, 07/02/18) Sulfa (Sulfonamide Antibiotics) (Verified Allergy, Unknown, HIVES, 02/07/18) Vitals & I&Os Vital Signs Date Time Temp Pulse Resp B/P (MAP) Pulse Ox O2 Delivery O2 Flow Rate FiO2 07/09/18 14:21 89 16 150/80 98 Room Air 07/09/18 05:06 98.4 Hospital Course Was the Problem List Reviewed?: Yes Hospital course: Patient had a short hospital course after she was transferred from [facility] after a long recovery for a anoxic brain injury brought on from a hypoglycemic episode and herbal drug use. She participated in all therapy and regain function in all aspects of her ADLs but her cognition still was deficient becoming tearful and requiring 24/7 supervision since she was ultimately discharged to [facility] to keep her safe under supervision because of cognition deficits. Labs (last 24 hrs) Laboratory Tests 07/02/18 11:07: Glucometer 159H 07/02/18 16:40: Glucometer 256H 07/02/18 20:36: Glucometer 156H 07/03/18 05:19: Glucometer 133H 07/03/18 10:10: White Blood Count 8.7, Red Blood Count 4.12L, Hemoglobin 12.1, Hematocrit 37, Mean Corpuscular Volume 89, Mean Corpuscular Hemoglobin 29, Mean Corpuscular Hemoglobin Concent 33, Red Cell Distribution Width 14.9H, Platelet Count 280, Mean Platelet Volume 10.3, Sodium Level 138, Potassium Level 4.2, Chloride Level 105, Carbon Dioxide Level 23, Anion Gap 10, Blood Urea Nitrogen 15, Creatinine 1.28, Estimat Glomerular Filtration Rate 44, BUN/Creatinine Ratio 12 , Glucose Level 192H, Calcium Level 9.7, Corrected Calcium 9.9, Total Bilirubin 0.7, Aspartate Amino Transf (AST/SGOT) 29, Alanine Aminotransferase (ALT/SGPT) 20, Alkaline Phosphatase 75, Total Protein 8.2, Albumin 3.7 07/03/18 10:49: Glucometer 217H 07/03/18 16:27: Glucometer 167H 07/03/18 21:14: Glucometer 249H 07/04/18 06:12: Glucometer 123H 07/04/18 10:57: Glucometer 243H 07/04/18 15:59: Glucometer 212H 07/04/18 20:18: Glucometer 203H 07/05/18 06:17: Glucometer 184H 07/05/18 11:04: Glucometer 216H 07/05/18 15:52: Glucometer 266H 07/05/18 20:26: Glucometer 272H 07/06/18 06:10: Glucometer 151H 07/06/18 11:16: Glucometer 295H 07/06/18 16:42: Glucometer 218H 07/06/18 21:39: Glucometer 280H 07/07/18 06:30: Glucometer 181H 07/07/18 11:44: Glucometer 329H 07/07/18 16:27: Glucometer 221H 07/07/18 20:36: Glucometer 234H 07/08/18 05:13: Glucometer 128H 07/08/18 10:54: Glucometer 280H 07/08/18 17:07: Glucometer 198H 07/08/18 20:21: Glucometer 229H 07/09/18 04:40: Glucometer 122H 07/09/18 11:02: Glucometer 246H Pending Labs Laboratory Tests 07/02/18 11:07: Glucometer 159 07/02/18 16:40: Glucometer 256 07/02/18 20:36: Glucometer 156 07/03/18 05:19: Glucometer 133 07/03/18 10:10: White Blood Count 8.7, Red Blood Count 4.12, Hemoglobin 12.1, Hematocrit 37, Mean Corpuscular Volume 89, Mean Corpuscular Hemoglobin 29, Mean Corpuscular Hemoglobin Concent 33, Red Cell Distribution Width 14.9, Platelet Count 280, Mean Platelet Volume 10.3, Sodium Level 138, Potassium Level 4.2, Chloride Level 105, Carbon Dioxide Level 23, Anion Gap 10, Blood Urea Nitrogen 15, Creatinine 1.28, Estimat Glomerular Filtration Rate 44, BUN/Creatinine Ratio 12 , Glucose Level 192, Calcium Level 9.7, Corrected Calcium 9.9, Total Bilirubin 0.7, Aspartate Amino Transf (AST/SGOT) 29, Alanine Aminotransferase (ALT/SGPT) 20, Alkaline Phosphatase 75, Total Protein 8.2, Albumin 3.7 07/03/18 10:49: Glucometer 217 07/03/18 16:27: Glucometer 167 07/03/18 21:14: Glucometer 249 07/04/18 06:12: Glucometer 123 07/04/18 10:57: Glucometer 243 07/04/18 15:59: Glucometer 212 07/04/18 20:18: Glucometer 203 07/05/18 06:17: Glucometer 184 07/05/18 11:04: Glucometer 216 07/05/18 15:52: Glucometer 266 07/05/18 20:26: Glucometer 272 07/06/18 06:10: Glucometer 151 07/06/18 11:16: Glucometer 295 07/06/18 16:42: Glucometer 218 07/06/18 21:39: Glucometer 280 07/07/18 06:30: Glucometer 181 07/07/18 11:44: Glucometer 329 07/07/18 16:27: Glucometer 221 07/07/18 20:36: Glucometer 234 07/08/18 05:13: Glucometer 128 07/08/18 10:54: Glucometer 280 07/08/18 17:07: Glucometer 198 07/08/18 20:21: Glucometer 229 07/09/18 04:40: Glucometer 122 07/09/18 11:02: Glucometer 246 Discharge Home Medications: Active Scripts Active Levemir (Insulin Determir) 1,000 Units/10 Ml Soln 15 Unit SQ HS 30 Days Novolog (Insulin Aspart) 100 Unit/1 Ml Susp 0 Unit SC ACHS 30 Days Cymbalta (Duloxetine HCl) 20 Mg Cap 20 Mg PO HS 30 Days Tramadol HCl 50 Mg Tablet 50 Mg PO Q6H PRN Carvedilol 25 Mg Tablet 25 Mg PO BID 60 Days Reported Ventolin Hfa (Albuterol Sulfate) 1 Puff Puff 2 Puff INH Q6H PRN Tylenol Arthritis (Acetaminophen) 650 Mg Tablet.er 650 Mg PO Q6H PRN Ondansetron HCl 4 Mg Tablet 4 Mg PO Q4H PRN Instructions to patient/family Please see electronic discharge instructions given to patient. Diagnosis/Problems Diagnosis/Problems (1) Anoxic encephalopathy Status: Chronic (2) Neurocognitive deficits Status: Chronic (3) Altered mental status Status: Chronic Qualifiers: Qualified Codes: R41.82 - Altered mental status, unspecified (4) Hypoglycemia Status: Resolved Resolution Date/Time: 06/06/18 @ 12:44 (5) Acute respiratory failure Status: Resolved Qualifiers: Qualified Codes: J96.00 - Acute respiratory failure, unspecified whether with hypoxia or hypercapnia Resolution Date/Time: 07/02/18 @ 22:07 (6) Obesity Status: Chronic Qualifiers: Qualified Codes: E66.01 - Morbid (severe) obesity due to excess calories; Z68.37 - Body mass index (bmi) 37.0-37.9, adult Clinical Quality Measures DVT/VTE Risk/Contraindication: Risk Factor Score Per Nursin RFS Level Per Nursing on Admit: 4+=Very High SOHAIL HUBER DO Jul 09, 2018 10:23
--- NOTE | 2018-07-09 10:33 | Speech Therapy Daily Note ---
Speech Daily Progress Note Subjective Date Seen by Provider: Jul 09, 2018 Time Seen by Provider: 00:30 Patient was resting in bed today. She stated she did not sleep well last night and was tired. Objective Patient completed simple conversational tasks with 75% accuracy with word finding difficulty noted. Assessment Assessment Current Status: Good Progress Treatment Plan Continue Plan of Care Communication Comprehension: 3 Expression: 3 Social Cognition Social Interaction: 5 Problem Solvin Memory: 2 Speech Short Term Goals Short Term Goals Short Term Goals 1) Patient will complete memory tasks related to her self at 80% or greater. 2) Patient will complete problem solving tasks related to daily tasks at 80% or greater. 3) Patient will recall new information presented related to personal safety within her immediate environment at 80% or greater. 4) Patient will tolerate least restrictive diet level at 90% accuracy. 5) Patient will utilize compensatory strategies as trained at 90% or greater. Speech Snf Goals Client Services Associate Goals 1) Patient will improve her overall cognitive-communication status for safety and independence. 2) Patient will maintain adequate nutrition/hydration via safe effective swallow function. Speech-Plan Patient/Family Goals Patient/Family Goals: Patient plans to live with her daughter post rehab. Treatment Plan Speech Therapy Treatment Plan: Continue Plan of Care Patient was very sleepy today and had to be encouraged to engage in therapy. Treatment Duration: Jul 14, 2018 Frequency: 5 times per week Estimated Hrs Per Day: .5 hour per day Rehab Potential: Good Barriers to Learning: Patient has residual effects of the anoxia. Pt/Family Agrees to Plan: Yes Safety Risks/Education Teaching Recipient: Patient Teaching Methods: Discussion Response to Teaching: Verbalize Understanding Education Topics Provided: Safety Time Speech Therapy Time In: 09:30 Speech Therapy Time Out: 10:00 Total Billed Time: 30 Billed Treatment Time 1, MAURI Sales Jul 09, 2018 10:33
--- NOTE | 2018-07-09 11:03 | Physical Therapy Daily Note ---
PT Daily Note-Current Subjective Pt laying Supine in bed upon arrival. Pt agrees to PT for FIM scoring for anticipated D/C. Pain Location: Right, Distal Location Body Site: Ankle Pain Description: Sharp Mental Status Patient Orientation: Person, Place, Situation Transfers Therapy Code Descriptions/Definitions Functional [place] Measure: 0=Not Assessed/NA 4=Minimal Assistance 1=Total Assistance 5=Supervision or Setup 2=Maximal Assistance 6=Modified [place] 3=Moderate Assistance 7=Complete [place] Therapy Quality Codes: 6 Independent with activity with or without an assistive device 5 Patient requires set up or clean up by helper. Patient completes activity by themselves 4 Supervision or touching assist (CGA). [place] provide cues , steadying assist 3 The helper provides less than half the effort to complete the activity 2 The helper provides more than half the effort to complete the activity 1 Dependent. The helper does all the effort to complete an activity 7 Patient refused to complete or attempt activity 9 The patient did not perform the activity before the current illness or injury 88 Not attempted due to Medical conditions or safety concerns Transfers (B, C, W/C) (FIM): 6 Scootin Rollin Roll Left to Right (QC): 7 Supine to/from Sit: 7 Sit to/from Stand: 6 Sit to Lying (QC): 7 Sit to Stand (QC): 6 Chair/Uvb-zn-Wsrqx Xfer(QC): 6 Bed to/from Chair: 6 Car Transfer (QC): 6 Pt needs occasional VC to sequencing & hand placement. Weight Bearing Right Lower Extremity: Right Full Weight Bearing Left Lower Extremity: Left Full Weight Bearing Gait Training Does the Patient Walk?: Yes Gait (FIM): 6 Distance (FIM): 3=150 ft Distance: 150' Walk 10 feet (QC): 6 Walk 50 ft with 2 Turns(QC): 6 Walk 150 ft (QC): 6 Walking 10ft/uneven surface-QC: 6 Gait Level of Assist: 6 Gait Persons Needed: 1 Gait Assistive Device: FWW Pt has attempted w/o AD but pt feels more comfortable as well as is more stable using FWW at this time. Wheelchair Training Does the Pt Use a Wheelchair?: No Stair Training Stair Training: Handrails/: 2 handrails Stairs (FIM): 6 #of Steps: 12 1 Step (curb) (QC): 6 4 Steps (QC): 6 12 Steps (QC): 6 Stairs: Pattern: Step to Level of Assist: 6 LACQUER MACHINE FEEDER gave VC for sequencing to start stairs but pt is able to continue. Balance Picking up an Object (QC): 6 Exercises Seated Therapy Exercises: Ankle pumps, Long arc quads, Kicking activity Seated Reps: 10 Treatments Pt completes transfers including car transfer at Mod I, ambulates including across varying surface using FWW at Mod I, completes 3 sets of 4 steps, and bed mobility at Independent. Pt needs occasional VC for redirection and sequencing. Pt resting in bed at end of tx with all needs met. Assessment Current Status: Good Progress Pt is able to follow directions better today as well as carry on conversation when asked questions. PT Short Term Goals Short Term Goals Time Frame: Jul 09, 2018 Transfers (B,C,W/C) (FIM): 6 Gait (FIM): 5 Gait Distance Comment: 200' Gait Level of Assist: 5 Gait Assistive Device: FWW PT Dye House Helper Goals Longterm Goals PT Longterm Goals Time Frame: Jul 23, 2018 Transfers (B,C,W/C) (FIM): 6 Sit to Lying (QC): 6 Lying-Sitting on Side/Bed(QC): 6 Sit to Stand (QC): 6 Rollin Roll Left to Right (QC): 6 Chair/Fgh-lg-Sphxz Xfer(QC): 6 Car Transfer (QC): 6 Gait (FIM): 6 Distance: 300' Walk 10 feet (QC): 6 Walk 10ft-Uneven Surface(QC): 6 Walk 50ft with 2 Turns (QC): 6 Walk 150 ft (QC): 6 Gait Level of Assist: 6 Gait Assistive Device: FWW Stairs (FIM): 5 # of Steps: 12 1 Step (curb) (QC): 4 4 Steps (QC): 4 12 Steps (QC): 4 Stairs Level Of Assist: 5 PT Plan Problem List Problem List: Safety Pt needs occasional VC for safety sequencing. Treatment/Plan Treatment Plan: Continue Plan of Care Treatment Plan: Bed Mobility, Education, Functional Activity Carlos, Functional Strength, Group Therapy, Gait, Safety, Therapeutic Exercise, Transfers Treatment Duration: Jul 23, 2018 Frequency: At least 5 of 7 days/Wk (IRF) Estimated Hrs Per Day: 1.5 hours per day Patient and/or Family Agrees t: Yes Safety Risks/Education Patient Education: Gait Training, Transfer Techniques, Correct Positioning, Safety Issues Teaching Recipient: Patient Teaching Methods: Discussion Response to Teaching: Verbalize Understanding Time/GCodes Time In: 1015 Time Out: 1100 Total Billed Treatment Time: 45 Total Billed Treatment 1, GT (15m) & FA x2 (30m) G Codes Necessary: DAKOTAH Gustafson LACQUER MACHINE FEEDER Jul 09, 2018 11:03
--- NOTE | 2018-07-09 11:26 | NUR ---
Discharge planning Patient has been accepted to [facility]. She is scheduled to be discharged from ARU at 1300. Boo, patient's daughter notified.
--- NOTE | 2018-07-09 11:41 | Therapy Team Discharge Summary ---
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 Upon admission to this unit, pt was min assist with all transfers and gait and required assist on stairs. She required supervision and safety training as well due to anoxic brain trauma and decreased safety and problem solving. Prior to her acute stay, she was living alone at [facility] and independent with all mobility. Treatment has focused on functional strength and balance to improve gait and transfers; she has also received much safety training/education. she is mod indep with all mobility at this time and has achieved her mobility goals. Due to persistent decreased safety awareness and problem solving skills, it is recommended that she have supervision at all times; therefore pt to discharge to [facility]. HANY PT. Occupational Therapy Impaired I ADL's, Impaired Self-Care Skills, Visual-Perceptual Deficit PT Agricultural Engineering Technicians Goals Agricultural Engineering Technicians Goals PT Longterm Goals Time Frame: Jul 23, 2018 Transfers (B,C,W/C) (FIM): 6 Roll Left to Right (QC): 6 Sit to Lying (QC): 6 Lying-Sitting on Side/Bed(QC): 6 Sit to Stand (QC): 6 Chair/Ppm-ud-Gsefm Xfer(QC): 6 Car Transfer (QC): 6 Gait (FIM): 6 Distance: 300' Walk 10 feet (QC): 6 Walk 10ft-Uneven Surface(QC): 6 Walk 50ft with 2 Turns (QC): 6 Walk 150 ft (QC): 6 Gait Level of Assist: 6 Gait Assistive Device: FWW Stairs (FIM): 5 # of Steps: 12 1 Step (curb) (QC): 4 4 Steps (QC): 4 12 Steps (QC): 4 Stairs Level Of Assist: 5 All goals met. OT Agricultural Engineering Technicians Goals Longterm Goals Time Frame: Jul 16, 2018 Eating (FIM): 7 Eating (QC): 6 Oral Hygiene (QC): 6 Grooming(FIM): 6 Bathing(FIM): 5 Shower/Bathe Self (QC): 5 Upper Body Dressing(FIM): 6 Upper Body Dressing (QC): 6 Lower Body Dressing(FIM): 6 Lower Body Dressing (QC): 6 On/Off Footwear (QC): 6 Toileting(FIM): 6 Toileting Hygiene (QC): 6 Transfers (B,C,W/C) (FIM): 6 Toilet/Commode Transfer(FIM): 6 Toilet/Commode Transfer (QC): 6 Shower Transfer(FIM): 6 Additional Goals: 1-Demonstrate ADL Tasks, 2-Verbalize Understanding, 3- ImproveStrength/Carlos 1=Demonstrate adherence to instructed precautions during ADL tasks. 2=Patient will verbalize/demonstrate understanding of assistive devices/ modifications for ADL. 3=Patient will improve strength/tolerance for activity to enable patient to perform ADL's. Speech Agricultural Engineering Technicians Goals Agricultural Engineering Technicians Goals 1) Patient will improve her overall cognitive-communication status for safety and independence. 2) Patient will maintain adequate nutrition/hydration via safe effective swallow function. RAYMON PARISI PT Jul 09, 2018 11:41
--- NOTE | 2018-07-09 13:00 | NUR ---
CHEPE CASTANEDA demonstrates understanding of discharge instructions and accurately returns instructions upon questioning. Copy of Post-Discharge Instructions given to mill and coal transport operator. CHEPE CASTANEDA is not able to manage continuing needs after discharge and discharged to [facility]. Patients belongings returned to . Patient discharged from [facility] on 07-09-18 at 1300. CHEPE CASTANEDA left floor via , accompanied by .
[2018-07-09 14:21] VITALS: BP 150/80
--- NOTE | 2018-07-09 14:59 | Occupational Ther Daily Note ---
OT Current Status-Daily Note Subjective No pain reported. Appearance Pt. in bed when OT entered room. Had just finished breakfast and resting. Agrees to work with OT. Mental Status/Objective Patient Orientation: Person Therapy Code Descriptions/Definitions Functional [place] Measure: 0=Not Assessed/NA 4=Minimal Assistance 1=Total Assistance 5=Supervision or Setup 2=Maximal Assistance 6=Modified [place] 3=Moderate Assistance 7=Complete [place] ADL-Treatment Therapy Code Descriptions/Definitions Functional [place] Measure: 0=Not Assessed/NA 4=Minimal Assistance 1=Total Assistance 5=Supervision or Setup 2=Maximal Assistance 6=Modified [place] 3=Moderate Assistance 7=Complete [place] Therapy Quality Codes: 6 Independent with activity with or without an assistive device 5 Patient requires set up or clean up by helper. Patient completes activity by themselves 4 Supervision or touching assist (CGA). [place] provide cues , steadying assist 3 The helper provides less than half the effort to complete the activity 2 The helper provides more than half the effort to complete the activity 1 Dependent. The helper does all the effort to complete an activity 7 Patient refused to complete or attempt activity 9 The patient did not perform the activity before the current illness or injury 88 Not attempted due to Medical conditions or safety concerns Eating (FIM): 7 Eating (QC): 6 Grooming (FIM): 6 (Mod I at sink with safety concerns. Pt. brushed teeth and hair.) Oral Hygiene (QC): 6 Bathing (FIM): 5 Shower/Bathe Self (QC): 4 Upper Body (FIM): 6 (Mod I to retrieve items from closet with safety concerns.) Upper Body Dressing (QC): 6 Lower Body Dressing (FIM): 5 Lower Body Dressing (QC): 4 On/Off Footwear (QC): 4 Toileting (FIM): 6 Toileting Hygiene (QC): 6 Transfers (B, C, W/C) (FIM): 5 Toilet/Commode Transfer (FIM): 6 Toilet Transfer (QC): 6 Shower Transfer(FIM): 5 Other Treatment After ADLs, pt. ambulated to kitchen with therapist using walker. Able to do so with supervision. Pt. given cues of where items were, as she wanted to make herself a cup of coffee with creamer and sugar. Pt. was waiting on cup from storage room when she opened her sugar packs and poured them on the spoon that was sitting on the counter. When cup arrived, she carefully picked up the spoon and poured the sugar into the cup. Went back to room and pt. participated in cognitive task using magazines. OT wrote three items down on paper for pt. to find in magazine. Pt. required multiple cues for this and became tearful. Seemed to forget what she was looking for. Ambulated again to therapy gym and pt. engaged in color matching activity for visual perception. Pt. unable to match colors. Does not seem to understand what colors are or the matching counterpart. Pt. becomes frustrated but is re-assured by this OT. Ambulated back to room with all needs met. Education OT Patient Education: Correct positioning, Modified ADL techniques, Progress toward Goal/Update tx plan, Purpose of tx/functional activities, Reviewed precautions, Rehab process, Transfer techniques Teaching Recipient: Patient Teaching Methods: Demonstration, Discussion Response to Teaching: Verbalize Understanding, Return Demonstration OT Short Term Goals Short Term Goals Transfers (B,C,W/C) (FIM): 6 1=Demonstrate adherence to instructed precautions during ADL tasks. 2=Patient will verbalize/demonstrate understanding of assistive devices/ modifications for ADL. 3=Patient will improve strength/tolerance for activity to enable patient to perform ADL's. OT Online Tutor Goals Online Tutor Goals Time Frame: Jul 16, 2018 Eating (FIM): 7 Eating (QC): 6 Groomin Oral Hygiene (QC): 6 Bathing(FIM): 5 Shower/Bathe Self (QC): 5 Upper Body Dressing(FIM): 6 Upper Body Dressing (QC): 6 Lower Body Dressing(FIM): 6 Lower Body Dressing (QC): 6 On/Off Footwear (QC): 6 Toileting(FIM): 6 Toileting Hygiene (QC): 6 Transfers (B,C,W/C) (FIM): 6 Toilet/Commode Transfer(FIM): 6 Toilet/Commode Transfer (QC): 6 Shower Transfer(FIM): 6 Additional Goals: 1-Demonstrate ADL Tasks, 2-Verbalize Understanding, 3- ImproveStrength/Carlos 1=Demonstrate adherence to instructed precautions during ADL tasks. 2=Patient will verbalize/demonstrate understanding of assistive devices/ modifications for ADL. 3=Patient will improve strength/tolerance for activity to enable patient to perform ADL's. OT Education/Plan Problem List/Assessment Assessment: Decreased Activ Tolerance, Decreased Safety Aware, Impaired Cognition, Impaired I ADL's, Impaired Self-Care Skills Discharge Recommendations Plan/Recommendations: Continue POC Therapy D/C Recommendations: 24 hr Supervision Treatment Plan/Plan of Care Treatment,Training & Education: Yes Patient would benefit from OT for education, treatment and training to promote independence in ADL's, mobility, safety and/or upper extremity function for ADL' s. Plan of Care: ADL Retraining, Functional Mobility, Group Exercise/Act as Ind, UE Funct Exercise/Act Treatment Duration: Jul 16, 2018 Frequency: At least 5 of 7 days/Wk (IRF) Estimated Hrs Per Day: 1.5 hours per day Agreement: Yes Rehab Potential: Good Time/GCodes Start Time: 08:15 Stop Time: 09:30 Total Time Billed (hr/min): 75 Billed Treatment Time 1, ADL x 30minutes, FA x 45minutes AARON PRAJAPATI OT Jul 09, 2018 14:59
--- NOTE | 2018-07-09 15:08 | Therapy Team Discharge Summary ---
Therapy Discharge Summary Discharge Recommendations Date of Discharge 07-09-18 Therapy D/C Recommendations: 24 hr Supervision, [facility] (TCU/[facility]) Occupational Therapy Pt. has been seen by occupational therapy to increase overall strength and independence. Pt. has met many goals with safety concerns. Pt. is able to complete tasks that are familiar, such as dressing and bathing with safety concerns. However, has great difficulty with new and unfamiliar tasks. Poor ability to complete activities that she has not done before, especially if is is not a basic ADL. Pt. is discharging to skilled unit and then home with daughter. Recommend continued occupational therapy. Decreased Activ Tolerance, Decreased Safety Aware, Impaired Cognition, Impaired I ADL's, Impaired Self-Care Skills PT Controller Mechanic Goals Controller Mechanic Goals PT [facility]cf Goals Time Frame: Jul 23, 2018 Transfers (B,C,W/C) (FIM): 6 Roll Left to Right (QC): 6 Sit to Lying (QC): 6 Lying-Sitting on Side/Bed(QC): 6 Sit to Stand (QC): 6 Chair/Alz-vf-Vskie Xfer(QC): 6 Car Transfer (QC): 6 Gait (FIM): 6 Distance: 300' Walk 10 feet (QC): 6 Walk 10ft-Uneven Surface(QC): 6 Walk 50ft with 2 Turns (QC): 6 Walk 150 ft (QC): 6 Gait Level of Assist: 6 Gait Assistive Device: FWW Stairs (FIM): 5 # of Steps: 12 1 Step (curb) (QC): 4 4 Steps (QC): 4 12 Steps (QC): 4 Stairs Level Of Assist: 5 OT Controller Mechanic Goals Controller Mechanic Goals Time Frame: Jul 16, 2018 Eating (FIM): 7 (met) Eating (QC): 6 (met) Oral Hygiene (QC): 6 (met) Grooming(FIM): 6 (met) Bathing(FIM): 5 (met) Shower/Bathe Self (QC): 5 (met) Upper Body Dressing(FIM): 6 (met) Upper Body Dressing (QC): 6 (met) Lower Body Dressing(FIM): 6 (not met) Lower Body Dressing (QC): 6 (not met) On/Off Footwear (QC): 6 (not met) Toileting(FIM): 6 (met) Toileting Hygiene (QC): 6 (met) Transfers (B,C,W/C) (FIM): 6 (met) Toilet/Commode Transfer(FIM): 6 (met) Toilet/Commode Transfer (QC): 6 (met) Shower Transfer(FIM): 6 (not met) Additional Goals: 1-Demonstrate ADL Tasks, 2-Verbalize Understanding, 3- ImproveStrength/Carlos 1=Demonstrate adherence to instructed precautions during ADL tasks. 2=Patient will verbalize/demonstrate understanding of assistive devices/ modifications for ADL. 3=Patient will improve strength/tolerance for activity to enable patient to perform ADL's. Speech Controller Mechanic Goals Chcf Goals 1) Patient will improve her overall cognitive-communication status for safety and independence. 2) Patient will maintain adequate nutrition/hydration via safe effective swallow function. AARON PRAJAPATI OT Jul 09, 2018 15:08
--- NOTE | 2018-07-09 16:08 | NUR ---
Completed CARE [id number] prior to pt discharge and faxed to [facility].
--- NOTE | 2018-07-09 18:16 | Progress Note (SOAP) ---
Subjective Date Seen by a Provider: Jul 09, 2018 Time Seen by a Provider: 12:30 Subjective/Events-last exam Fwup anoxic encephalopathy, DM--insulin requiring, COPD, depression. Going to [facility] today. Objective Exam Vital Signs Date Time Temp Pulse Resp B/P (MAP) Pulse Ox O2 Delivery O2 Flow Rate FiO2 07/09/18 14:21 89 16 150/80 98 Room Air 07/09/18 09:00 Room Air 07/09/18 05:06 98.4 89 16 150/80 (103) 98 Room Air 07/08/18 21:24 Room Air I & O 07/09/18 07:00 Intake Total 1600 ml Balance 1600 ml Capillary Refill : Less Than 3 Seconds General Appearance: No Apparent Distress Neck: Supple Respiratory: Lungs Clear Extremity: Non Tender, No Calf Tenderness, No Pedal Edema Neurologic/Psychiatric: Alert, Oriented x3 Results Lab Laboratory Tests 07/08/18 20:21: Glucometer 229H 07/09/18 04:40: Glucometer 122H 07/09/18 11:02: Glucometer 246H Assessment/Plan Assessment/Plan Assess & Plan/Chief Complaint 1. Anoxic Encephalopathy--to [facility] today 2. Diabetes mellitus--insulin requiring, on levemir and SS B 3. History of HTN--currently off medications and BP is stable 4. History of Narcotic Abuse--not requiring pain medications at this time 5. COPD--stable 6. Right lateral malleolus stage 1 pressure sore--dressing in place 7. Recurrent Depression--restarted cymbalta at 20mg daily Clinical Quality Measures DVT/VTE Risk/Contraindication: Risk Factor Score Per Nursin RFS Level Per Nursing on Admit: 4+=Very High MIRELA LYLE DO Jul 09, 2018 18:16
--- NOTE | 2018-07-10 08:55 | Therapy Team Discharge Summary ---
Therapy Discharge Summary Discharge Recommendations Date of Discharge Jul 09, 2018 at 13:00 Therapy D/C Recommendations: 24 hr Supervision, [facility] (TCU/[facility]) Occupational Therapy Decreased Activ Tolerance, Decreased Safety Aware, Impaired Cognition, Impaired I ADL's, Impaired Self-Care Skills Speech-Language Pathology Patient was admitted to the ARU due to anoxia. She was evaluated by the ST with initial results of mild dysphagia and was placed on a Dysphagia II diet level with thin liquids. She also exhibited moderate expressive communication deficits at the time of evaluation. She made good gains as a result of skilled ST. Compensatory strategy training was completed with patient utilization at 80% . Patient is returning home with her family today and will be discharged from skilled ST services at this time. PT Halfway Goals Binder Folder Operator Goals PT Halfway Goals Time Frame: Jul 23, 2018 Transfers (B,C,W/C) (FIM): 6 Roll Left to Right (QC): 6 Sit to Lying (QC): 6 Lying-Sitting on Side/Bed(QC): 6 Sit to Stand (QC): 6 Chair/Geq-cz-Qrxti Xfer(QC): 6 Car Transfer (QC): 6 Gait (FIM): 6 Distance: 300' Walk 10 feet (QC): 6 Walk 10ft-Uneven Surface(QC): 6 Walk 50ft with 2 Turns (QC): 6 Walk 150 ft (QC): 6 Gait Level of Assist: 6 Gait Assistive Device: FWW Stairs (FIM): 5 # of Steps: 12 1 Step (curb) (QC): 4 4 Steps (QC): 4 12 Steps (QC): 4 Stairs Level Of Assist: 5 OT Halfway Goals Halfway Goals Time Frame: Jul 16, 2018 Eating (FIM): 7 (met) Eating (QC): 6 (met) Oral Hygiene (QC): 6 (met) Grooming(FIM): 6 (met) Bathing(FIM): 5 (met) Shower/Bathe Self (QC): 5 (met) Upper Body Dressing(FIM): 6 (met) Upper Body Dressing (QC): 6 (met) Lower Body Dressing(FIM): 6 (not met) Lower Body Dressing (QC): 6 (not met) On/Off Footwear (QC): 6 (not met) Toileting(FIM): 6 (met) Toileting Hygiene (QC): 6 (met) Transfers (B,C,W/C) (FIM): 6 (met) Toilet/Commode Transfer(FIM): 6 (met) Toilet/Commode Transfer (QC): 6 (met) Shower Transfer(FIM): 6 (not met) Additional Goals: 1-Demonstrate ADL Tasks, 2-Verbalize Understanding, 3- ImproveStrength/Carlos 1=Demonstrate adherence to instructed precautions during ADL tasks. 2=Patient will verbalize/demonstrate understanding of assistive devices/ modifications for ADL. 3=Patient will improve strength/tolerance for activity to enable patient to perform ADL's. Speech Halfway Goals Halfway Goals 1) Patient will improve her overall cognitive-communication status for safety and independence. Met 2) Patient will maintain adequate nutrition/hydration via safe effective swallow function. Met MAURI YOU Jul 10, 2018 08:55
== END 2018-07-09 13:00 | DRG 93 ==
PROVIDERS: ADMIT Internal Medicine; ATTEND Internal Medicine
DX: G93.1 Anoxic brain damage, not elsewhere classified (principal); F09 Unspecified mental disorder due to known physiological condition; R47.89 Other speech disturbances; R53.1 Weakness; E11.42 Type 2 diabetes mellitus with diabetic polyneuropathy; J44.9 Chronic obstructive pulmonary disease, unspecified; I10 Essential (primary) hypertension; E66.01 Morbid (severe) obesity due to excess calories; Z66 Do not resuscitate; E78.00 Pure hypercholesterolemia, unspecified; K21.9 Gastro-esophageal reflux disease without esophagitis; G47.9 Sleep disorder, unspecified; F41.9 Anxiety disorder, unspecified; F32.9 Major depressive disorder, single episode, unspecified; F17.210 Nicotine dependence, cigarettes, uncomplicated; Z79.4 Long term (current) use of insulin; Z68.37 Body mass index [BMI] 37.0-37.9, adult; L89.511 Pressure ulcer of right ankle, stage 1
CPT/HCPCS: 36415; 80053; 82962; 85027; 90686

== ENCOUNTER 2018-07-23 18:17 | Inpatient (IN) | payer MEDICARE, MEDICAID ==
[2018-07-23] VITALS: BP 158/88
[~2018-07-23] VITALS: Ht 157.5 cm; Wt 102.1 kg
[~2018-07-23 18:17] MED LIST changes: -CARV3.122 PO; -CEFD300C3 PO; -DULO60CA58 PO; -DULO60CA6 PO; -PREG100C22 PO
--- NOTE | 2018-07-23 18:53 | ED Respiratory ---
General Chief Complaint: Cardiac/General Problems Stated Complaint: COUGH Nursing Triage Note: TO TRIAGE VIA WC. WAS SEEN AT [facility] TODAY AND HAD LABS DRAWN. DR POLO OFFICE CALLED AND TOLD HER SHE HAD FLUID AROUND THE HEART. AFTER BEING TOLD THAT PT HAS BECAME MORE WEAK AND LETHARGIC. Source: patient Exam Limitations: no limitations History of Present Illness Date Seen by Provider: Jul 23, 2018 Time Seen by Provider: 18:40 Initial Comments The patient presents to ER by private conveyance with chief complaint of shortness of breath and cough. The cough going on for several days since been mildly productive, occasional. The shortness of breath has just gotten worse today. She went to urgent care and had a chest x-ray obtained which showed some fluid around her heart she says. Her primary care doctor reviewed the chest x- ray and sent her up to the lab to get some blood work done but she says her shortness of breath has gotten worse and she like to be reevaluated. She just got out of the hospital recently for diabetic coma. She says she has a history of heart failure and used to be on water pills but not anymore. She has not noticed swelling in her hands or feet and she does not check her weight daily. She denies any chest pain, abdominal pain, nausea vomiting or diarrhea. No dysuria. She quit smoking last year but she was a 2 to 3 pack a day smoker. Urgent care put her on cefdinir for bilateral ear infection. She has not started taking it yet. Allergies and Home Medications Allergies Coded Allergies: codeine (Verified Allergy, Mild, ITCHING, Pt has received Lortab in the past, 07/02/18) Sulfa (Sulfonamide Antibiotics) (Verified Allergy, Unknown, HIVES, 02/07/18) Home Medications Acetaminophen 650 Mg Tablet.er, 650 MG PO Q6H PRN for PAIN-MILD, (Reported) Albuterol Sulfate 1 Puff Puff, 2 PUFF INH Q6H PRN for SHORTNESS OF BREATH, ( Reported) Carvedilol 25 Mg Tablet, 25 MG PO BID Prescribed by: SOHAIL HUBER on 07/09/18 1017 Carvedilol 3.125 Mg Tablet, 3.125 MG PO BID, (Reported) Duloxetine HCl 20 Mg Cap, 20 MG PO HS Prescribed by: SOHAIL HUBER on 07/09/18 1017 Duloxetine HCl 60 Mg Capsule.dr, 60 MG PO DAILY, (Reported) Insulin Aspart 100 Unit/1 Ml Susp, 0 UNIT SC ACHS Prescribed by: SOHAIL HUBER on 07/09/18 101 Insulin Determir 1,000 Units/10 Ml Soln, 15 UNIT SQ HS Prescribed by: SOHAIL HUBER on 07/09/18 101 Ondansetron HCl 4 Mg Tablet, 4 MG PO Q4H PRN for NAUSEA/VOMITING-1ST LINE, ( Reported) Pregabalin 100 Mg Capsule, 100 MG PO AT BEDTIME, (Reported) Tramadol HCl 50 Mg Tablet, 50 MG PO Q6H PRN for PAIN-MODERATE Prescribed by: SOHAIL HUBER on 07/09/18 101 Patient Home Medication List Home Medication List Reviewed: Yes Review of Systems Review of Systems Constitutional: No chills, No fever, No malaise; weakness EENTM: No ear pain, No blurred vision Respiratory: cough; No hemoptysis; phlegm (clear); No wheezing Cardiovascular: No chest pain, No Hx of Intervention, No palpitations Gastrointestinal: No abdominal pain, No diarrhea, No nausea Genitourinary: No discharge, No dysuria : No Musculoskeletal: No back pain, No joint pain Skin: No pruritus, No rash Psychiatric/Neurological: Denies Headache, Denies Numbness Past Jqydjhi-Apzzdw-Eoicgh Hx Patient Social History Alcohol Use: Denies Use Recreational Drug Use: No Drug of Choice: opioids Smoking Status: Former Smoker Type Used: Cigarettes Former Smoker, Quit: May 23, 2018 2nd Hand Smoke Exposure: Yes Recent Foreign Travel: No Contact w/Someone Who Travel: No Recent Infectious Disease Expo: No Recent Hopitalizations: Yes ([facility]) Immunizations Up To Date Tetanus Booster (TDap): Less than 5yrs Date of Pneumonia Vaccine: Jun 09, 2008 Date of Influenza Vaccine: Mar 29, 2015 Seasonal Allergies Seasonal Allergies: Yes Past Medical History Surgeries: Yes (Left breast cyst, x2, ORIF Right ankle) Section, Gallbladder, Orthopedic, Tubal Ligation Respiratory: Yes (CPAP not used after last sleep study) Sleep Apnea, COPD Cardiac: Yes Chronic Edema/Swelling, High Cholesterol, Hypertension Neurological: Yes (HYPOGLYCEMIC ENCEPHALOPATHY) Neuropathy, Traumatic Brain Injury 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 Disorders: No 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 Disorders: Denies 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 Sexually Transmitted Disease: No HIV/AIDS: No Genitourinary: Yes Renal Failure, UTI-Chronic Gastrointestinal: Yes Gastroesophageal Reflux, Pancreatitis Musculoskeletal: Yes (right ankle fx with steel plate) Degenerate Disk Disease, Chronic Back Pain Endocrine: Yes Diabetes, Insulin dep HEENT: No Cancer: No Psychosocial: Yes (DGTR STATES PT HAS ADDICTIVE PERSONALITY) Sleep Difficulties, Anxiety, Depression Integumentary: Yes (FREQUENT CELLULITIS--LEGS) Recent Skin Changes Blood Disorders: No Adverse Reaction/Blood Tranf: No Family Medical History Completed stroke 19 FATHER Congenital heart disease 19 FATHER Diabetes mellitus 19 FATHER Myocardial infarction 19 FATHER Psychosocial problem 19 FATHER (depression) 19 MOTHER (depression) Respiratory disorder 19 MOTHER (copd) No Pertinent Family Hx, Diabetes Physical Exam Vital Signs - First Documented 07/23/18 07/23/18 18:24 19:12 Temp 98.4 Pulse 86 Resp 18 B/P (MAP) 156/65 (95) Pulse Ox 92 O2 Delivery Room Air O2 Flow Rate 2.00 Capillary Refill : Less Than 3 Seconds Height: 5'2.00" Weight: 190lbs. 0.0oz. 86.041100ks; 37.4 BMI Method:Stated General Appearance: mild distress, obese Eyes: Bilateral Eye Normal Inspection, Bilateral Eye PERRL, Bilateral Eye EOMI HEENT: PERRL/EOMI, normal ENT inspection, TMs normal (good landmarks without erythema, bulging or tenderness to manipulation on examination.), pharynx normal Neck: non-tender, full range of motion, supple, normal inspection Respiratory: chest non-tender, no accessory muscle use, respiratory distress ( mild), decreased breath sounds; No accessory muscle use; crackles (bilateral base); No wheezing Cardiovascular: normal peripheral pulses, regular rate, rhythm, other (1+ pitting edema bilateral lower extremities at the ankles) Gastrointestinal: normal bowel sounds, non tender, soft Extremities: normal range of motion, normal capillary refill Neurologic/Psychiatric: alert, oriented x 3, other (anxious, tearful affect) Focused Exam Lactate Level 07/23/18 20:23: Lactic Acid Level 1.30 Lactic Acid Level Laboratory Tests Test 07/23/18 20:23 Lactic Acid Level 1.30 MMOL/L (0.50-2.00) Procedures/Interventions Date of ETT Placement: Jun 03, 2018 Time of ETT Placement: 1310 Progress/Results/Core Measures Suspected Sepsis Recent Fever Within 48 Hours: No Infection Criteria Present: None New/Unexplained Altered Menta: No Sepsis Screen: No Definite Risk SIRS Temperature:98.4 Pulse: 86 Respiratory Rate: 18 Laboratory Tests 07/23/18 18:51: White Blood Count 18.2H Blood Pressure 156 /65 Mean: 95 07/23/18 20:23: Lactic Acid Level 1.30 Laboratory Tests 07/23/18 18:51: Creatinine 1.37H, Platelet Count 586H, Total Bilirubin 0.3 Results/Orders Lab Results Laboratory Tests Test 07/23/18 18:51 07/23/18 19:05 07/23/18 19:19 07/23/18 20:23 Range/Units White Blood Count 18.2 H 4.3-11.0 10^3/uL Red Blood Count 3.84 L 4.35-5.85 10^6/uL Hemoglobin 11.0 L 11.5-16.0 G/DL Hematocrit 34 L 35-52 % Mean Corpuscular Volume 87 80-99 FL Mean Corpuscular Hemoglobin 29 25-34 PG Mean Corpuscular Hemoglobin Concent 33 32-36 G/DL Red Cell Distribution Width 15.2 H 10.0-14.5 % Platelet Count 586 H 130-400 10^3/uL Mean Platelet Volume 10.3 7.4-10.4 FL Neutrophils (%) (Auto) 84 H 42-75 % Lymphocytes (%) (Auto) 12 12-44 % Monocytes (%) (Auto) 3 0-12 % Eosinophils (%) (Auto) 0 0-10 % Basophils (%) (Auto) 1 0-10 % Neutrophils # (Auto) 15.4 H 1.8-7.8 X 10^3 Lymphocytes # (Auto) 2.2 1.0-4.0 X 10^3 Monocytes # (Auto) 0.6 0.0-1.0 X 10^3 Eosinophils # (Auto) 0.0 0.0-0.3 10^3/uL Basophils # (Auto) 0.1 0.0-0.1 10^3/uL Neutrophils % (Manual) 70 % Lymphocytes % (Manual) 21 % Monocytes % (Manual) 6 % Eosinophils % (Manual) 0 % Basophils % (Manual) 0 % Band Neutrophils 3 % Blood Morphology Comment NORMAL Sodium Level 126 L 135-145 MMOL/L Potassium Level 4.1 3.6-5.0 MMOL/L Chloride Level 94 L 98-107 MMOL/L Carbon Dioxide Level 23 21-32 MMOL/L Anion Gap 9 5-14 MMOL/L Blood Urea Nitrogen 30 H 7-18 MG/DL Creatinine 1.37 H 0.60-1.30 MG/DL Estimat Glomerular Filtration Rate 41 BUN/Creatinine Ratio 22 Glucose Level 330 H 70-105 MG/DL Calcium Level 9.2 8.5-10.1 MG/DL Corrected Calcium 10.1 8.5-10.1 MG/DL Magnesium Level 1.7 L 1.8-2.4 MG/DL Total Bilirubin 0.3 0.1-1.0 MG/DL Aspartate Amino Transf (AST/SGOT) 27 5-34 U/L Alanine Aminotransferase (ALT/SGPT) 23 0-55 U/L Alkaline Phosphatase 201 H 40-136 U/L Troponin I < 0.028 <0.028 NG/ML C-Reactive Protein High Sensitivity 22.02 H 0.00-0.50 MG/DL B-Type Natriuretic Peptide 122.1 H <100.0 PG/ML Total Protein 8.8 H 6.4-8.2 GM/DL Albumin 2.9 L 3.2-4.5 GM/DL Blood Gas Puncture Site RT RAD Blood Gas Patient Temperature 98.0 Arterial Blood pH 7.43 7.37-7.43 Arterial Blood Partial Pressure CO2 34 L 35-45 MMHG Arterial Blood Partial Pressure O2 65 L 79-93 MMHG Arterial Blood HCO3 22 L 23-27 MMOL/L Arterial Blood Total CO2 23.2 21.0-31.0 MMOL/L Arterial Blood Oxygen Saturation 94 94-100 % Arterial Blood Base Excess -1.6 -2.5-2.5 MMOL/L Dave Test YES-POS Blood Gas Ventilator Setting NO Blood Gas Inspired Oxygen 1L Glucometer 223 H 70-110 MG/DL Lactic Acid Level 1.30 0.50-2.00 MMOL/L Test 07/23/18 20:39 Range/Units Urine Color YELLOW Urine Clarity SLIGHTLY CLOUDY Urine pH 7 5-9 Urine Specific Stanton 1.005 L 1.016-1.022 Urine Protein 2+ H NEGATIVE Urine Glucose (UA) 1+ H NEGATIVE Urine Ketones NEGATIVE NEGATIVE Urine Nitrite NEGATIVE NEGATIVE Urine Bilirubin NEGATIVE NEGATIVE Urine Urobilinogen NORMAL NORMAL MG/DL Urine Leukocyte Esterase 2+ H NEGATIVE Urine RBC (Auto) NEGATIVE NEGATIVE Urine RBC NONE /HPF Urine WBC 50-100 H /HPF Urine Squamous Epithelial Cells 10-25 H /HPF Urine Crystals NONE /LPF Urine Bacteria MODERATE H /HPF Urine Casts NONE /LPF Urine Mucus NEGATIVE /LPF Urine Culture Indicated YES Urine Opiates Screen NEGATIVE NEGATIVE Urine Oxycodone Screen NEGATIVE NEGATIVE Urine Methadone Screen NEGATIVE NEGATIVE Urine Propoxyphene Screen NEGATIVE NEGATIVE Urine Barbiturates Screen NEGATIVE NEGATIVE Ur Tricyclic Antidepressants Screen NEGATIVE NEGATIVE Urine Phencyclidine Screen NEGATIVE NEGATIVE Urine Amphetamines Screen NEGATIVE NEGATIVE Urine Methamphetamines Screen NEGATIVE NEGATIVE Urine Benzodiazepines Screen NEGATIVE NEGATIVE Urine Cocaine Screen NEGATIVE NEGATIVE Urine Cannabinoids Screen NEGATIVE NEGATIVE My Orders Orders - ANNMARIE CUEVA BNP (07/23/18 18:46) Cbc With Automated Diff (07/23/18 18:46) Comprehensive Metabolic Panel (07/23/18 18:46) Hs C Reactive Protein (07/23/18 18:46) Magnesium (07/23/18 18:46) Saline Lock/Iv-Start (07/23/18 18:46) Albuterol/Ipra Inhalation Soln (Duoneb I (07/23/18 19:00) Svn Small Volume Nebulizer (07/23/18 18:53) Troponin I (07/23/18 18:53) Accucheck Stat ONCE (07/23/18 18:53) Continuous Ekg Monitoring (07/23/18 18:53) Ekg Tracing (07/23/18 18:53) Arterial Blood Gas (07/23/18 18:54) Manual Differential (07/23/18 18:51) Arterial Blood Draw (07/23/18 ) Furosemide Injection (Lasix Injection) (07/23/18 19:30) Insulin (Regular) Human (Humulin R (Per (07/23/18 19:30) Magnesium 1 Gm/100 Ml Ivpb (Magnesium Minor (07/23/18 19:30) Ua Culture If Indicated (07/23/18 19:24) Drug Screen Stat (Urine) (07/23/18 19:24) Saline Lock/Iv-Start (07/23/18 19:33) Ns Iv 500 Ml (Sodium Chloride 0.9%) (07/23/18 19:33) Ns Iv 1000 Ml (Sodium Chloride 0.9%) (07/23/18 19:33) Cefepime Injection (Maxipime Injection) (07/23/18 19:45) Blood Culture (07/23/18 19:33) Influenza A And B Antigens (07/23/18 19:33) Sputum Culture (07/23/18 19:33) Lactic Acid Analyzer (07/23/18 19:33) Cho 60g/M 3snack (16-2000 Juan Luis) (07/23/18 Dinner) Lorazepam Tablet (Ativan Tablet) (07/23/18 20:30) Accucheck Stat ONCE (07/23/18 20:44) Urine Culture (07/23/18 20:39) Medications Given in ED Current Medications Medications Dose Ordered Sig/Amy Route Start Time Stop Time Status Last Admin Dose Admin Albuterol/ Ipratropium 3 ml ONCE ONCE INH 07/23/18 19:00 07/23/18 19:02 DC 07/23/18 19:07 3 ML Cefepime HCl 2000 mg/Sterile Water 20 ml @ 240 mls/hr ONCE ONCE IV 07/23/18 19:45 07/23/18 19:49 DC 07/23/18 20:03 240 MLS/HR Furosemide 60 mg ONCE ONCE IVP 07/23/18 19:30 07/23/18 19:31 DC 07/23/18 19:27 60 MG Insulin Human Regular 10 unit ONCE ONCE SC 07/23/18 19:30 07/23/18 19:31 DC 07/23/18 20:02 10 UNIT Lorazepam 1 mg ONCE ONCE PO 07/23/18 20:30 07/23/18 20:31 DC 07/23/18 20:55 1 MG Magnesium Sulfate/ Dextrose 100 ml @ 100 mls/hr ONCE ONCE IV 07/23/18 19:30 07/23/18 20:29 DC 07/23/18 20:02 100 MLS/HR Sodium Chloride 500 ml @ 0 mls/hr Q0M ONCE IV 07/23/18 19:33 07/23/18 19:36 DC 07/23/18 20:01 500 MLS/HR Vital Signs/I&O 07/23/18 07/23/18 18:24 19:12 Temp 98.4 Pulse 86 Resp 18 B/P (MAP) 156/65 (95) Pulse Ox 92 98 O2 Delivery Room Air Nasal Cannula O2 Flow Rate 2.00 Capillary Refill : Less Than 3 Seconds Blood Pressure Mean: 95 Progress Note #1: Time: 18:52 Progress Note We do not hear a lot of wheezing but she is very diminished. We'll give her breathing treatment and check a BNP as well as CRP and review her chest x-ray. Basic set of labs. She sounds like she is in fluid overload possibly from heart failure. Oxygen saturation is in the upper 80s to 90% on room air. She does not use oxygen at baseline. We'll put her on O2 at 2 L to bring her up above 94%. Initially the patient's blood pressure remained high in the 190s range so we gave her 60 mg of Lasix IV suspecting that she was in congestive heart failure. However with her elevated white count and BNP of 120 seems like pneumonia is more likely. She's having Rales in both lobes so bilateral lobe pneumonia with recent stay in the hospital less than 90 days ago prompted us to obtain blood cultures, give her cefepime and a 1500 cc bolus of fluids which would be more than 20 mL/kg based on an adjusted ideal body weight of 64 kg. Her BMI is 34. We 'll see what the Lasix dose to her blood pressure before we initiate anything else at this time. Echocardiogram from Dr. Fisher May 2018: Cavity size, systolic function, wall thickness is normal with an EF of 55-65%. Mild mitral valve regurgitation. Progress Note #2: Time: 20:59 Progress Note Spoke to Gildardo and Brissa Huerta and they're both on diversion. Called [facility] at 2000 and spoke with the nurse practitioner [facility] who accepts on behalf of Dr. Judith Garland. They will call us back with a room number. 2100: Nursing board mill supervisor advises me we have a new room opened up on the floor. This patient would be appropriate for it. Patient agreed to stay as well as Dr. Haider agreed to admit so we will put her upstairs with orders. We have advised [facility] that we will not need to bed after all. Urine sample likely represents contamination but cefepime would cover for UTI. We'll see what the culture shows. ECG Initial ECG Impression Date: Jul 23, 2018 Initial ECG Impression Time: 19:20 Initial ECG Rate: 88 Initial ECG Rhythm: Normal Sinus Initial ECG Intervals: Normal Initial ECG Impression: Normal, Nonspecific Changes Comment And left ventricular hypertrophy. No significant ST elevation or depression. Diagnostic Imaging Diagonstic Imaging: Xray Plain Films/CT/US/NM/MRI: chest (2v) Comments NAME: CHEPE CASTANEDA [facility] REC#: [id number] PHYSICIAN: MIRELA HAIDER DO CC: KENNY WHITLOCK MD; MIRELA HAIDER DO Page 1 of 1 RADIOLOGY REPORT [facility] [place] CC: KENNY WHITLOCK MD; MIRELA HAIDER DO Page 1 of 1 RADIOLOGY REPORT NAME: CHEPE CASTANEDA [facility] REC#: [id number] PT STATUS: REG CLI : 1965 PHYSICIAN: MIRELA HAIDER DO ADMIT DATE: 07/23/18/RAD Signed Date of Exam: 07/23/18 CHEST PA/LAT (2 VIEW) INDICATION: Cough and dyspnea. PA and lateral views of the chest are obtained with comparison made to study of 06/08/2018. FINDINGS: Cardiomegaly and pulmonary venous congestion have increased. There is increase in central pulmonary density bilaterally which is likely due to edema. There has also been an increase in blunting of both costophrenic sulci. IMPRESSION: Findings are most suggestive of congestive heart failure with developing pulmonary edema and bilateral pleural effusions. Superimposed pneumonia cannot be excluded. Dictated by: Dictated on workstation # [id number] Dict: 07/23/18 1643 Trans: 07/23/18 165 Interpreted by: KENNY WHITLOCK MD Electronically signed by: KENNY WHITLOCK MD 07/23/18 1657 Reviewed: Reviewed by Me Departure Communication (Admissions) Time/Spoke to Admitting Phy: 21:[address] Haider who will accept the patient to the hospital. Communication (PCP) 2015: Apprised PCP of the situation. Impression Primary Impression: Pneumonia Qualified Codes: J18.9 - Pneumonia, unspecified organism Additional Impressions: Hypoxia Electrolyte disorder Hypertension Qualified Codes: I10 - Essential (primary) hypertension Influenza B Disposition: ADMITTED INPATIENT Condition: Stable Admissions Decision to Admit Reason: Admit from ER (General) Decision to Admit/Date: Jul 23, 2018 Time/Decision to Admit Time: 21:00 Departure-Patient Inst. Referrals: MIRELA HAIDER DO (PCP/Family) Primary Care Physician ANNMARIE CUEVA Jul 23, 2018 18:53
[2018-07-23 18:58] LABS: BASOPHILS # (AUTO) 0.1 10^3/uL (0.0-0.1); BASOPHILS % (AUTO) 1 % (0-10); EOSINOPHILS % (AUTO) 0 % (0-10); HEMATOCRIT 34 % (35-52); LYMPHOCYTES # (AUTO) 2.2 X 10^3 (1.0-4.0); LYMPHOCYTES % (AUTO) 12 % (12-44); MEAN CORPUSCULAR HEMOGLOBIN 29 PG (25-34); MEAN CORPUSCULAR HGB CONC 33 G/DL (32-36); MEAN CORPUSCULAR VOLUME 87 FL (80-99); MEAN PLATELET VOLUME 10.3 FL (7.4-10.4); MONOCYTES # (AUTO) 0.6 X 10^3 (0.0-1.0); MONOCYTES % (AUTO) 3 % (0-12); NEUTROPHILS # (AUTO) 15.4 X 10^3 (1.8-7.8); NEUTROPHILS % (AUTO) 84 % (42-75); PLATELET COUNT 586 10^3/uL (130-400); RED CELL DISTRIBUTION WIDTH 15.2 % (10.0-14.5); WHITE BLOOD COUNT 18.2 10^3/uL (4.3-11.0)
[2018-07-23] MEDS ORDERED: RT-ALBUTEROL/IPRATROPIUM 3 ML (DUONEB) VIAL INH ONE (19:00)
[2018-07-23 19:18] LABS: ALANINE AMINOTRANSFERASE 23 U/L (0-55); ALBUMIN 2.9 GM/DL (3.2-4.5); ALKALINE PHOSPHATASE 201 U/L (40-136); BILIRUBIN,TOTAL 0.3 MG/DL (0.1-1.0); BUN/CREATININE RATIO 22; CALCIUM 9.2 MG/DL (8.5-10.1); CARBON DIOXIDE 23 MMOL/L (21-32); CHLORIDE 94 MMOL/L (98-107); CREATININE SERUM 1.37 MG/DL (0.60-1.30); GFR ESTIMATED 41; GLUCOSE 330 MG/DL (70-105); MAGNESIUM 1.7 MG/DL (1.8-2.4); POTASSIUM 4.1 MMOL/L (3.6-5.0); SODIUM 126 MMOL/L (135-145); TOTAL PROTEIN 8.8 GM/DL (6.4-8.2)
[2018-07-23 19:21] LABS: BAND NEUTROPHILS 3 %; BASOPHILS % (MANUAL) 0 %; EOSINOPHILS % (MANUAL) 0 %; LYMPHOCYTES % (MANUAL) 21 %; MONOCYTES % (MANUAL) 6 %; NEUTROPHILS % (MANUAL) 70 %; RBC MORPH NORMAL
[2018-07-23] MEDS ORDERED: inSUlin (REGULAR) HUMAN 1 UNIT/0.01 ML (CHARGE PER UNIT) SC ONE (19:30)
[2018-07-23] MEDS ORDERED: MAGNESIUM 1 GM/100 ML IVPB 100 ML IV ONE (19:30)
[2018-07-23] MEDS ORDERED: FUROSEMIDE 40 MG/4 ML INJ (LASIX) IVP ONE (19:30)
[2018-07-23] MEDS ORDERED: NS IV 1000 ML 1,000 ML IV SCH (19:33)
[2018-07-23] MEDS ORDERED: NS IV 500 ML 500 ML IV ONE (19:33)
[2018-07-23 19:45] LABS: ABG BASE EXCESS -1.6 MMOL/L (-2.5-2.5); ABG OXYGEN SATURATION 94 % (94-100); ABG PCO2 34 MMHG (35-45); ABG PH 7.43 (7.37-7.43); ABG PO2 65 MMHG (79-93); ABG TCO2 23.2 MMOL/L (21.0-31.0); ALLENS TEST YES-POS; INSPIRED O2 1L; VENTILATOR NO
[2018-07-23] MEDS ORDERED: CEFEPIME INJECTION 2,000 MG in WATER (STERILE) FOR INJECTION 20 ML IV ONE (19:45)
[2018-07-23] MEDS ORDERED: DULO60CA6 PO (20:28)
[2018-07-23] MEDS ORDERED: CARV3.122 PO (20:28)
[2018-07-23] MEDS ORDERED: PREG100C22 PO (20:28)
[2018-07-23] MEDS ORDERED: LORazepam 1 MG (ATIVAN) TAB PO ONE (20:30)
[2018-07-23 20:44] LABS: BILIRUBIN,URINE NEGATIVE (NEGATIVE); CLARITY,URINE SLIGHTLY CLOUDY; COLOR,URINE YELLOW; GLUCOSE, URINE (UA) 1+ (NEGATIVE); KETONES,URINE NEGATIVE (NEGATIVE); LEUKOCYTE ESTERASE ,URINE 2+ (NEGATIVE); NITRITE,URINE NEGATIVE (NEGATIVE); PH,URINE 7 (5-9); PROTEIN,URINE 2+ (NEGATIVE); UROBILINOGEN,URINE NORMAL (NORMAL)
[2018-07-23 20:54] LABS: WBC,URINE 50-100 /HPF
[2018-07-23 20:55] LABS: BACTERIA,URINE MODERATE /HPF
[2018-07-23 20:58] LABS: AMPHETAMINE SCREEN, URINE NEGATIVE (NEGATIVE); BARBITURATE SCREEN URINE NEGATIVE (NEGATIVE); BENZODIAZEPINES SCREEN URINE NEGATIVE (NEGATIVE); CANNABINOID SCREEN, URINE NEGATIVE (NEGATIVE); COCAINE SCREEN URINE NEGATIVE (NEGATIVE); METHADONE STAT NEGATIVE (NEGATIVE); METHAMPHETAMINE SCREEN URINE S NEGATIVE (NEGATIVE); OPIATE SCREEN URINE NEGATIVE (NEGATIVE); OXYCODONE STAT NEGATIVE (NEGATIVE); PROPOXYPHENE STAT NEGATIVE (NEGATIVE); TRICYCLIC ANTIDEPRESSANTS SCRE NEGATIVE (NEGATIVE)
--- NOTE | 2018-07-23 21:02 | NUR ---
OPR called at this time and notified that patient is going to be admitted at [facility].
--- NOTE | 2018-07-23 21:03 | NUR ---
Luisana Gold's number [phone]
--- NOTE | 2018-07-23 21:09 | NUR ---
Daughter is with patient. She stated that pt was in hospital for 6 weeks for diabetic encephalopathy and was in rehab. Pt has been receiving home health and family has been with her at home. Pt had near fall at home where she slid causing back pain and rib pain. Pt stated back pain makes her feel like she can't breath. Today pt went to urgent care because of SOB and pt was pale. Pt got xray done and called telling her she had fluid around heart and needed to get labs done. Came here to get labs done and when asking if she could see doctor while there, because she was moving slow, rib/back pain, pale and lethargic, they sent her to ER to get checked out.
[2018-07-23 22:01] VITALS: BP 151/98
--- NOTE | 2018-07-23 22:17 | NUR ---
1,000 ml bolus (600ml left) continued upstairs.
--- NOTE | 2018-07-23 22:30 | NUR ---
CHEPE CASTANEDA admitted to room 407-1, with an admitting diagnosis of PNEUNOMIA, COPD, HYPOXIA, on 07/23/18 from ED via WC, accompanied by ED STAFF. CHEPE CASTANEDA introduced to surroundings, call light, bed controls, phone, TV, temperature control, lights, meal times, smoking policy, visitor policy, side rail policy, bathrooms and showers. Patient Rights given to patient in the handbook. CHEPE CASTANEDA verbalizes understanding that [facility] is not responsible for the loss or damage to any personal effects or valuables that are kept in the patients posession during their hospitalization.CHEPE CASTANEDA verbalizes understanding of Interdisciplinary Patient Education. Patient and/or family were informed about the Rapid Response Team and its purpose.
[2018-07-23 22:41] VITALS: BP 158/88
[2018-07-23] MEDS ORDERED: MELATONIN 3 MG TABLET PO PRN (22:45)
[2018-07-23] MEDS ORDERED: ONDANSETRON 4 MG/2 ML (SDV) Z0FRAN IV PRN (22:45)
[2018-07-23] MEDS: NS W/KCL 20 MEQ/L 1,000 ML IV SCH (22:58)
[2018-07-24] VITALS: BP 156/88
[2018-07-24] MEDS: ACETAMINOPHEN 500 MG TAB (TYLENOL) PO PRN ×2 (00:08→10:01)
[2018-07-24] MEDS ORDERED: RT-ALBUTEROL/IPRATROPIUM 3 ML (DUONEB) VIAL INH PRN (02:00)
[2018-07-24] MEDS: RT-ALBUTEROL/IPRATROPIUM 3 ML (DUONEB) VIAL INH SCH ×4 (03:16→20:26)
[2018-07-24] MEDS ORDERED: RT-ALBUTEROL/IPRATROPIUM 3 ML (DUONEB) VIAL ONE (03:24)
[2018-07-24 04:08] VITALS: BP 156/85
[2018-07-24] MEDS: NS W/KCL 20 MEQ/L 1,000 ML IV SCH ×3 (05:33→19:46)
[2018-07-24] MEDS: inSUlin ASPART (NovoLOG) 1 UNIT/0.01 ML (CHARGE PER UNIT) SC SCH ×7 (06:51→22:00)
[2018-07-24 07:22] LABS: BASOPHILS # (AUTO) 0.1 10^3/uL (0.0-0.1); BASOPHILS % (AUTO) 0 % (0-10); EOSINOPHILS % (AUTO) 0 % (0-10); HEMATOCRIT 32 % (35-52); HEMOGLOBIN 10.6 G/DL (11.5-16.0); LYMPHOCYTES # (AUTO) 1.9 X 10^3 (1.0-4.0); LYMPHOCYTES % (AUTO) 13 % (12-44); MEAN CORPUSCULAR HEMOGLOBIN 29 PG (25-34); MEAN CORPUSCULAR HGB CONC 33 G/DL (32-36); MEAN CORPUSCULAR VOLUME 88 FL (80-99); MEAN PLATELET VOLUME 10.3 FL (7.4-10.4); MONOCYTES # (AUTO) 0.6 X 10^3 (0.0-1.0); MONOCYTES % (AUTO) 5 % (0-12); NEUTROPHILS # (AUTO) 11.7 X 10^3 (1.8-7.8); NEUTROPHILS % (AUTO) 82 % (42-75); PLATELET COUNT 513 10^3/uL (130-400); WHITE BLOOD COUNT 14.3 10^3/uL (4.3-11.0)
[2018-07-24 07:40] LABS: CALCIUM 8.8 MG/DL (8.5-10.1); CREATININE SERUM 1.25 MG/DL (0.60-1.30); POTASSIUM 4.3 MMOL/L (3.6-5.0)
[2018-07-24 08:00] VITALS: BP 176/91
[2018-07-24] MEDS ORDERED: CARVEDILOL 3.125 MG (COREG) TABLET PO SCH (09:00)
[2018-07-24] MEDS ORDERED: PREG100C PO (09:13)
[2018-07-24] MEDS ORDERED: DULO60CA58 PO (09:13)
[2018-07-24] MEDS ORDERED: FLUC100T6 PO (09:13)
[2018-07-24] MEDS ORDERED: INSU100I14 SC (09:13)
[2018-07-24] MEDS ORDERED: ALBU18HF2 INH (09:13)
[2018-07-24] MEDS ORDERED: INSU100I29 SC (09:13)
[2018-07-24] MEDS ORDERED: CEFD300C3 PO (09:13)
[2018-07-24] MEDS: inSUlin DETERMIR 1 UNIT/0.01 ML (LEVEMIR) CHARGE PER UNIT SQ SCH ×2 (09:28→22:07)
--- NOTE | 2018-07-24 11:55 | Physician Query Clarification ---
PQ-Further Specificity Admission/Discharge Admission Date: Jul 23, 2018 at 21:00 Discharge Date: The medical record reflects the following clinical scenario: History/Risk Factors: Influenza, CHF, Pneumonia HTN Clinical Findings: Sodium 126, Chloride 94 Treatment: IV sodium chloride Question: Can you further specify electrolyte disorder per the clinical indicators above? Please document below. 1. hyponatremia 2. hypochloremia 3. both hyponatremia and hypochloremia 3. Other, with explanation of the clinical findings. 4. Clinically undetermined, no explanation for the clinical findings. PHYSICIAN RESPONSE Can you specify per above: 1 In responding to this query, please exercise your independent professional judgment. The purpose of this communication is to more accurately reflect the complexity of your patients condition. The fact that a question is asked does not imply that any particular answer is desired or expected. Thank you for your timely response to this clarification. Requestors name: Liudmila THIS PHYSICIAN QUERY FORM IS A PERMANENT PART OF THE MEDICAL RECORD LIUDMILA BARNES Jul 24, 2018 11:55 ANNMARIE CUEVA Jul 24, 2018 23:52
[2018-07-24 12:00] VITALS: BP 149/86
[2018-07-24] MEDS ORDERED: KETOROLAC 15 MG/ML VIAL IVP NR (14:00)
[2018-07-24] MEDS ORDERED: OSELTAMIVIR 75 MG (TAMIFLU) CAPSULE PO NR (14:00)
[2018-07-24] MEDS ORDERED: CARVEDILOL 3.125 MG (COREG) TABLET PO NR (14:00)
--- NOTE | 2018-07-24 14:04 | History & Physicial ---
History of Present Illness History of Present Illness Reason for visit/HPI This is a 52 year old female who had a recent prolonged hospital stay for anoxic encephalopathy. She was having cough and shortness of air so she went to the urgent care for evaluation and was told she may have pneumonia and was given antibiotics. Her daughter called our office to get new tubing for her nebulizer machine and told us what was going on so we sent her for a CXR which confirmed pneumonia as well as possible pulmonary edema so she was instructed to go for stat lab. She returned to the hospital but was feeling worse so decided to go to the emergency room. In the ER she was found to have hypoxia with bilateral pulmonary infiltrates and was also influenza A positive. She is admitted for further treatment. Date of Admission Jul 23, 2018 at 21:00 Date Seen by a Provider: Jul 24, 2018 Time Seen by a Provider: 13:59 I consulted on this patient on 07/24/18 13:58 Attending Physician Bailee Haider DO Admitting Physician Bailee Haider DO Consult Allergies and Home Medications Allergies Coded Allergies: codeine (Verified Allergy, Mild, ITCHING, Pt has received Lortab in the past, 07/02/18) Sulfa (Sulfonamide Antibiotics) (Verified Allergy, Unknown, HIVES, 02/07/18) Home Medications Acetaminophen 650 Mg Tablet.er, 650 MG PO Q6H PRN for PAIN-MILD, (Reported) Albuterol Sulfate 18 Gm Hfa.aer.ad, 2 PUFF INH Q6H PRN for SHORTNESS OF BREATH, (Reported) Carvedilol 3.125 Mg Tablet, 3.125 MG PO BID, (Reported) Cefdinir 300 Mg Capsule, 300 MG PO BID, (Reported) 10 DAY SUPPLY FILLED 07-23-18 Duloxetine HCl 60 Mg Capsule.dr, 60 MG PO HS, (Reported) Fluconazole 100 Mg Tablet, 100 MG PO DAILY, (Reported) 7 DAY SUPPLY FILLED 07-23-18 Insulin Aspart 300 Units/3 Ml Solution, 5 UNITS SC TIDAC, (Reported) Insulin Detemir 100 Unit/1 Ml Insuln.pen, 25 UNITS SC HS, (Reported) Pregabalin 100 Mg Capsule, 100 MG PO HS, (Reported) Patient Home Medication List Home Medication List Reviewed: Yes Past Okagsad-Hjrcpr-Opcqev Hx Patient Social History Alcohol Use: Denies Use Recreational Drug Use: No Drug of Choice: opioids Smoking Status: Former Smoker Former Smoker, Quit: May 23, 2018 Type Used: Cigarettes 2nd Hand Smoke Exposure: Yes Recent Foreign Travel: No Contact w/other who traveled: No Recent Hopitalizations: Yes ([employer]) Recent Infectious Disease Expo: No Immunizations Up To Date Tetanus Booster (TDap): Less than 5yrs Date of Pneumonia Vaccine: Jun 09, 2008 Date of Influenza Vaccine: Jun 28, 2017 Seasonal Allergies Seasonal Allergies: Yes Surgeries Yes (Left breast cyst, x2, ORIF Right ankle) Section, Gallbladder, Orthopedic, Tubal Ligation Respiratory Yes (CPAP not used after last sleep study) COPD Cardiovascular Yes Chronic Edema/Swelling, High Cholesterol, Hypertension Neurological Yes (HYPOGLYCEMIC ENCEPHALOPATHY) Neuropathy, Traumatic Brain Injury 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 System Hx 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 Disorders: No Sexually Transmitted Disease: No HIV/AIDS: No 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 Disorders: Denies 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 Genitourinary Yes Renal Failure, UTI-Chronic Gastrointestinal Yes Gastroesophageal Reflux, Pancreatitis Musculoskeletal Yes (right ankle fx with steel plate) Degenerate Disk Disease, Chronic Back Pain Endocrine History of Endocrine Disorders: Yes Endocrine Disorders: Diabetes, Insulin dep HEENT History of HEENT Disorders: No Cancer No Psychosocial History of Psychiatric Problem: Yes (DGTR STATES PT HAS ADDICTIVE PERSONALITY) Behavioral Health Disorders: Sleep Difficulties, Anxiety, Depression Integumentary History of Skin or Integumenta: Yes (FREQUENT CELLULITIS--LEGS) Skin/Integumentary Disorders: Recent Skin Changes Blood Transfusions History of Blood Disorders: No Adverse Reaction to a Blood Tr: No Family Medical History Significant Family History: No Pertinent Family Hx, Diabetes Family Hx: Completed stroke 19 FATHER Congenital heart disease 19 FATHER Diabetes mellitus 19 FATHER Myocardial infarction 19 FATHER Psychosocial problem 19 FATHER (depression) 19 MOTHER (depression) Respiratory disorder 19 MOTHER (copd) Review of Systems Constitutional: fever, malaise, weakness EENTM: nose congestion Respiratory: cough, dyspnea on exertion, short of breath Cardiovascular: edema Gastrointestinal: No RUQ, No LUQ, No RLQ, No LLQ, No no symptoms reported, No see HPI, No abdominal pain, No constipation, No diarrhea, No dysphagia, No hematemesis, No heartburn, No jaundice, No loss of appetite, No melena, No nausea, No vomiting, No other Genitourinary: decreased output Musculoskeletal: back pain, muscle pain Skin: No no symptoms reported, No see HPI, No change in color, No change in hair/nails, No dryness, No hx of skin cancer, No lesions, No lumps, No pruritus , No rash, No other Psychiatric/Neurological: Weakness Physical Exam Vital Signs Vital Signs - First Documented 07/23/18 07/23/18 07/23/18 18:24 19:12 23:45 Temp 98.4 Pulse 86 Resp 18 B/P (MAP) 156/65 (95) Pulse Ox 92 O2 Delivery Room Air O2 Flow Rate 2.00 FiO2 21 Capillary Refill : Less Than 3 SecondsLess Than 3 Seconds Height, Weight, BMI Height: 5'2.00" Weight: 196lbs. 1.0oz. 88.392851po; 35.9 BMI Method:Stated General Appearance: Moderate Distress (due to bodyaches) HEENT: Normal ENT Inspection Neck: Supple Respiratory: Lungs Clear, Decreased Breath Sounds Cardiovascular: Regular Rate, Rhythm Gastrointestinal: Normal Bowel Sounds, Non Tender, Soft Rectal: Deferred Back: No CVA Tenderness Extremity: Non Tender, No Calf Tenderness, No Pedal Edema Neurologic/Psychiatric: Alert, Oriented x3 Skin: Warm/Dry Comments Laboratory Tests 07/23/18 18:51: White Blood Count 18.2H, Red Blood Count 3.84L, Hemoglobin 11.0L, Hematocrit 34L , Mean Corpuscular Volume 87, Mean Corpuscular Hemoglobin 29, Mean Corpuscular Hemoglobin Concent 33, Red Cell Distribution Width 15.2H, Platelet Count 586H, Mean Platelet Volume 10.3, Neutrophils (%) (Auto) 84H, Lymphocytes (%) (Auto) 12 , Monocytes (%) (Auto) 3, Eosinophils (%) (Auto) 0, Basophils (%) (Auto) 1, Neutrophils # (Auto) 15.4H, Lymphocytes # (Auto) 2.2, Monocytes # (Auto) 0.6, Eosinophils # (Auto) 0.0, Basophils # (Auto) 0.1, Neutrophils % (Manual) 70, Lymphocytes % (Manual) 21, Monocytes % (Manual) 6, Eosinophils % (Manual) 0, Basophils % (Manual) 0, Band Neutrophils 3, Blood Morphology Comment NORMAL, Sodium Level 126L, Potassium Level 4.1, Chloride Level 94L, Carbon Dioxide Level 23, Anion Gap 9, Blood Urea Nitrogen 30H, Creatinine 1.37H, Estimat Glomerular Filtration Rate 41, BUN/Creatinine Ratio 22, Glucose Level 330H, Calcium Level 9.2, Corrected Calcium 10.1, Magnesium Level 1.7L, Total Bilirubin 0.3, Aspartate Amino Transf (AST/SGOT) 27, Alanine Aminotransferase ( ALT/SGPT) 23, Alkaline Phosphatase 201H, Troponin I < 0.028, C-Reactive Protein High Sensitivity 22.02H, B-Type Natriuretic Peptide 122.1H, Total Protein 8.8H, Albumin 2.9L 07/23/18 19:05: Blood Gas Puncture Site RT RAD, Blood Gas Patient Temperature 98.0, Arterial Blood pH 7.43, Arterial Blood Partial Pressure CO2 34L, Arterial Blood Partial Pressure O2 65L, Arterial Blood HCO3 22L, Arterial Blood Total CO2 23.2, Arterial Blood Oxygen Saturation 94, Arterial Blood Base Excess -1.6, Dave Test YES-POS, Blood Gas Ventilator Setting NO, Blood Gas Inspired Oxygen 1L 07/23/18 19:19: Glucometer 223H 07/23/18 20:23: Lactic Acid Level 1.30 07/23/18 20:39: Urine Color YELLOW, Urine Clarity SLIGHTLY CLOUDY, Urine pH 7, Urine Specific [place] 1.005L, Urine Protein 2+H, Urine Glucose (UA) 1+H, Urine Ketones NEGATIVE, Urine Nitrite NEGATIVE, Urine Bilirubin NEGATIVE, Urine Urobilinogen NORMAL, Urine Leukocyte Esterase 2+H, Urine RBC (Auto) NEGATIVE, Urine RBC NONE , Urine WBC 50-100H, Urine Squamous Epithelial Cells 10-25H, Urine Crystals NONE , Urine Bacteria MODERATEH, Urine Casts NONE, Urine Mucus NEGATIVE, Urine Culture Indicated YES, Urine Opiates Screen NEGATIVE, Urine Oxycodone Screen NEGATIVE, Urine Methadone Screen NEGATIVE, Urine Propoxyphene Screen NEGATIVE, Urine Barbiturates Screen NEGATIVE, Ur Tricyclic Antidepressants Screen NEGATIVE , Urine Phencyclidine Screen NEGATIVE, Urine Amphetamines Screen NEGATIVE, Urine Methamphetamines Screen NEGATIVE, Urine Benzodiazepines Screen NEGATIVE, Urine Cocaine Screen NEGATIVE, Urine Cannabinoids Screen NEGATIVE 07/24/18 05:29: Glucometer 323H 07/24/18 07:16: White Blood Count 14.3H, Red Blood Count 3.68L, Hemoglobin 10.6L, Hematocrit 32L , Mean Corpuscular Volume 88, Mean Corpuscular Hemoglobin 29, Mean Corpuscular Hemoglobin Concent 33, Red Cell Distribution Width 15.0H, Platelet Count 513H, Mean Platelet Volume 10.3, Neutrophils (%) (Auto) 82H, Lymphocytes (%) (Auto) 13 , Monocytes (%) (Auto) 5, Eosinophils (%) (Auto) 0, Basophils (%) (Auto) 0, Neutrophils # (Auto) 11.7H, Lymphocytes # (Auto) 1.9, Monocytes # (Auto) 0.6, Eosinophils # (Auto) 0.0, Basophils # (Auto) 0.1, Sodium Level 131L, Potassium Level 4.3, Chloride Level 100, Carbon Dioxide Level 19L, Anion Gap 12, Blood Urea Nitrogen 27H, Creatinine 1.25, Estimat Glomerular Filtration Rate 45, BUN/ Creatinine Ratio 22, Glucose Level 317H, Calcium Level 8.8 07/24/18 11:29: Glucometer 135H Microbiology 07/23/18 Influenza Types A,B Antigen (DUNIA) - Final, Complete Assessment/Plan Assessment and Plan 1. Acute Bilateral Pneumonia--cover with maxipime due to recent hospital stay 2. Acute Hypoxia--on oxygen and SVNs 3. Influenza A--on tamiflu 4. Hypertension--restart coreg 5. Diabetes mellitus--insulin requiring--start levemir and SSI 6. Anoxic Encephalopathy--stable Admission Diagnosis Admission Status: Inpatient Order (span 2 midnights) Reason for Inpatient Admission: Treatment of pneumonia, hypoxia and flu Clinical Quality Measures DVT/VTE Risk/Contraindication: Risk Factor Score Per Nursin RFS Level Per Nursing on Admit: 4+=Very High BAILEE HAIDER DO Jul 24, 2018 14:04
[2018-07-24] MEDS ORDERED: OSELTAMIVIR 30 MG (TAMIFLU) CAPSULE PO NR (14:30)
--- NOTE | 2018-07-24 15:24 | NUR ---
1524-ON ASSESSMENT PATIENT IS DIAPHORETIC AND LETHARGIC. PATIENT DID AWAKEN TO NAME. STAT FINGERSTICK BLOOD GLUCOSE AT THIS TIME READ 38. PATIENT IS ALERT AND RESPONSIVE WITH NO TROUBLE SWALLOWING. THIS RN CALLED TO NURSE SHELBY BERRIOS TO GO GET THIS RN SOME PB, CRACKERS, OJ AND MILK. PATIENT IS CURRENTLY EATING THE SNACKS. 1544-PATIENT'S BG IS 53. THIS RN ORDERED PATIENT A MEAL TRAY AND TRAY ARRIVED. 1618-PATIENT'S BG-78. PATIENT IS MORE AWAKE AND IS STILL EATING HER MEAL. 1653-PATIENT RESTING IN BED. PATIENT ATE APPROX. 50% OF DINNER TRAY. PATIENT BG-111. WILL CONTINUE TO MONITOR.
--- NOTE | 2018-07-24 15:58 | NUR ---
Pt resting with eyes closed. Offered prayer for emotional and spiritual healing. Pt is on precautions for flu.
[2018-07-24 16:57] VITALS: BP 150/78
[2018-07-24 20:21] VITALS: BP 130/84
[2018-07-24] MEDS: ACETAMINOPHEN 325 MG TABLET PO PRN (20:55)
[2018-07-24] MEDS: CARVEDILOL 6.25 MG (COREG) TAB PO SCH (20:55)
[2018-07-24] MEDS: OSELTAMIVIR 30 MG (TAMIFLU) CAPSULE PO SCH (20:55)
[2018-07-24] MEDS: PREGABALIN 100 MG (LYRICA) CAPSULE PO SCH (20:55)
[2018-07-24] MEDS: CEFEPIME 2,000 MG/SWFI 20 ML IV PUSH IV SCH ×2 (20:56)
[2018-07-24] MEDS ORDERED: OSELTAMIVIR 75 MG (TAMIFLU) CAPSULE PO SCH (21:00)
[2018-07-25] VITALS (16 sets, daily range): BP systolic 127–182; BP diastolic 62–110
[2018-07-25] MEDS: RT-ALBUTEROL/IPRATROPIUM 3 ML (DUONEB) VIAL INH SCH ×3 (02:00→20:40)
[2018-07-25] MEDS: NS W/KCL 20 MEQ/L 1,000 ML IV SCH (02:23)
[2018-07-25 05:27] LABS: BASOPHILS % (AUTO) 0 % (0-10); EOSINOPHILS # (AUTO) 0.1 10^3/uL (0.0-0.3); EOSINOPHILS % (AUTO) 1 % (0-10); HEMATOCRIT 31 % (35-52); HEMOGLOBIN 9.9 G/DL (11.5-16.0); LYMPHOCYTES # (AUTO) 2.1 X 10^3 (1.0-4.0); LYMPHOCYTES % (AUTO) 14 % (12-44); MEAN CORPUSCULAR HEMOGLOBIN 29 PG (25-34); MEAN CORPUSCULAR HGB CONC 32 G/DL (32-36); MEAN CORPUSCULAR VOLUME 91 FL (80-99); MEAN PLATELET VOLUME 10.1 FL (7.4-10.4); MONOCYTES # (AUTO) 0.7 X 10^3 (0.0-1.0); MONOCYTES % (AUTO) 5 % (0-12); NEUTROPHILS % (AUTO) 81 % (42-75); PLATELET COUNT 524 10^3/uL (130-400); RED CELL DISTRIBUTION WIDTH 15.3 % (10.0-14.5)
[2018-07-25 05:48] LABS: ALANINE AMINOTRANSFERASE 17 U/L (0-55); ALBUMIN 2.5 GM/DL (3.2-4.5); ALKALINE PHOSPHATASE 145 U/L (40-136); BILIRUBIN,TOTAL 0.3 MG/DL (0.1-1.0); BUN/CREATININE RATIO 21; CALCIUM 8.6 MG/DL (8.5-10.1); CARBON DIOXIDE 18 MMOL/L (21-32); CHLORIDE 109 MMOL/L (98-107); CREATININE SERUM 0.94 MG/DL (0.60-1.30); GFR ESTIMATED > 60; GLUCOSE 77 MG/DL (70-105); POTASSIUM 4.9 MMOL/L (3.6-5.0); SODIUM 136 MMOL/L (135-145); TOTAL PROTEIN 7.8 GM/DL (6.4-8.2)
[2018-07-25] MEDS: inSUlin ASPART (NovoLOG) 1 UNIT/0.01 ML (CHARGE PER UNIT) SC SCH ×7 (06:18→20:02)
[2018-07-25] MEDS: CARVEDILOL 6.25 MG (COREG) TAB PO SCH ×2 (08:00→20:24)
[2018-07-25] MEDS: OSELTAMIVIR 30 MG (TAMIFLU) CAPSULE PO SCH (08:00)
[2018-07-25] MEDS: inSUlin DETERMIR 1 UNIT/0.01 ML (LEVEMIR) CHARGE PER UNIT SQ SCH ×2 (08:37→20:04)
[2018-07-25 09:45] LABS: ABG BASE EXCESS -2.5 MMOL/L (-2.5-2.5); ABG OXYGEN SATURATION 97 % (94-100); ABG PCO2 35 MMHG (35-45); ABG PH 7.41 (7.37-7.43); ABG PO2 76 MMHG (79-93); ABG TCO2 22.6 MMOL/L (21.0-31.0); ALLENS TEST POSITIVE; INSPIRED O2 2 L; VENTILATOR NO
[2018-07-25 09:46] LABS: PATIENT TEMP 98.1
--- NOTE | 2018-07-25 09:52 | Diagnostic Imaging Report ---
INDICATION: Short of air Upright portable chest shows cardiomegaly with mild pulmonary venous distention. No alveolar infiltrates are seen. There are bilateral pleural effusions some of which appear to be loculated laterally inferiorly bilaterally. There is no pneumothorax. IMPRESSION: Since 07/23/2018, there has been a decrease in the vascularity and infiltrates consistent with improvement in congestive failure. Dictated by: Dictated on workstation # [id number]
--- NOTE | 2018-07-25 10:13 | Pulmonary Consultation ---
History of Present Illness History of Present Illness Date of Consultation 07/25/18 10:08 Time Seen by Provider: 11:35 Date of Admission History of Present Illness 52yo poor historian with recent hospitalization for anoxic encephalopathy presented to ED secondary to worsening lethargy, SOB, palpitations, and CP. I am consulted for pulmonary mangemetn. I am not able to get any info from pt currently. Allergies and Home Medications Allergies Coded Allergies: codeine (Verified Allergy, Mild, ITCHING, Pt has received Lortab in the past, 07/02/18) Sulfa (Sulfonamide Antibiotics) (Verified Allergy, Unknown, HIVES, 02/07/18) Home Medications Acetaminophen 650 Mg Tablet.er, 650 MG PO Q6H PRN for PAIN-MILD, (Reported) Albuterol Sulfate 18 Gm Hfa.aer.ad, 2 PUFF INH Q6H PRN for SHORTNESS OF BREATH, (Reported) Amlodipine Besylate 10 Mg Tablet, 10 MG PO DAILY Prescribed by: MIRELA LYLE on 08/13/18 1259 Carvedilol 12.5 Mg Tablet, 25 MG PO BID Prescribed by: MIRELA LYLE on 08/13/18 1259 Doxazosin Mesylate 2 Mg Tablet, 2 MG PO HS Prescribed by: MIRELA LYLE on 08/13/18 1259 Hydralazine HCl 25 Mg Tablet, 50 MG PO Q8HR Prescribed by: MIRELA LYLE on 08/13/18 1259 Insulin Aspart 100 Unit/1 Ml Susp, 0 UNIT SC ACHS SLIDING SCALE "B" BLOOD GLUCOSE (MG/DL) INSULIN DOSE (UNITS) 60- 180 0 181-200 4 201-250 6 251-300 8 301-350 10 351-400 12 > 400 CALL PHYSICIAN Prescribed by: MIRELA LYLE on 08/14/18 1242 Ziprasidone HCl 20 Mg Capsule, 20 MG PO BID WITH MEALS Prescribed by: MIRELA LYLE on 08/13/18 1259 Past Mlbxvqy-Jgmhje-Qnmngf Hx Patient Social History Alcohol Use: Denies Use Recreational Drug Use: No Drug of Choice: opioids Smoking Status: Former Smoker Type Used: Cigarettes Former Smoker, Quit: May 23, 2018 2nd Hand Smoke Exposure: Yes Recent Foreign Travel: No Contact w/Someone Who Travel: No Recent Infectious Disease Expo: No Recent Hopitalizations: Yes ([employer]) Physical Abuse: No Sexual Abuse: No Mistreated: No Fear: No Immunizations Up To Date Tetanus Booster (TDap): Less than 5yrs Date of Pneumonia Vaccine: Jun 09, 2008 Date of Influenza Vaccine: Jun 28, 2017 Seasonal Allergies Seasonal Allergies: Yes Past Medical History Surgeries: Yes (Left breast cyst, x2, ORIF Right ankle) Section, Gallbladder, Orthopedic, Tubal Ligation Respiratory: Yes (CPAP not used after last sleep study) Sleep Apnea, COPD Cardiac: Yes Chronic Edema/Swelling, High Cholesterol, Hypertension Neurological: Yes (HYPOGLYCEMIC ENCEPHALOPATHY) Neuropathy, Traumatic Brain Injury : No 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 Disorders: No 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 Sexually Transmitted Disease: No HIV/AIDS: No Genitourinary: Yes Renal Failure, UTI-Chronic Gastrointestinal: Yes Gastroesophageal Reflux, Pancreatitis Musculoskeletal: Yes (right ankle fx with steel plate) Degenerate Disk Disease, Chronic Back Pain Endocrine: Yes Diabetes, Insulin dep HEENT: No Cancer: No Psychosocial: Yes (DGTR STATES PT HAS ADDICTIVE PERSONALITY) Sleep Difficulties, Anxiety, Depression Integumentary: Yes (FREQUENT CELLULITIS--LEGS) Recent Skin Changes Blood Disorders: No Adverse Reaction/Blood Tranf: No Family Medical History Completed stroke 19 FATHER Congenital heart disease 19 FATHER Diabetes mellitus 19 FATHER Myocardial infarction 19 FATHER Psychosocial problem 19 FATHER (depression) 19 MOTHER (depression) Respiratory disorder 19 MOTHER (copd) No Pertinent Family Hx, Diabetes Review of Systems Time Seen by Provider: 11:37 Sepsis Event Evaluation Height, Weight, BMI Height: 5'2.00" Weight: 199lbs. 0.0oz. 90.565784vl; 35.9 BMI Method:Stated Exam Exam Vital Signs Date Time Temp Pulse Resp B/P (MAP) Pulse Ox O2 Delivery O2 Flow Rate FiO2 07/25/18 08:04 96 Nasal Cannula 2.00 07/25/18 08:00 97.7 99 24 155/99 (117) 96 Nasal Cannula 2.00 07/25/18 04:31 97.7 82 127/62 (83) Nasal Cannula 2.00 07/25/18 02:03 100 Nasal Cannula 2.00 07/25/18 00:42 97.7 87 18 153/82 (105) 98 Nasal Cannula 2.00 07/24/18 20:29 100 Nasal Cannula 2.00 07/24/18 20:21 97.3 78 20 130/84 (99) 99 Nasal Cannula 2.00 07/24/18 20:00 Nasal Cannula 2.00 07/24/18 16:57 97.4 83 20 150/78 (102) 99 Nasal Cannula 2.00 07/24/18 16:35 99 Nasal Cannula 2.00 07/24/18 12:00 98.6 85 20 149/86 (107) 97 Nasal Cannula 1.00 I & O 07/25/18 07:00 Intake Total 1570 ml Balance 1570 ml Height & Weight Height: 5'2.00" Weight: 199lbs. 0.0oz. 90.253345lf; 35.9 BMI Method:Stated General Appearance: Moderate Distress (due to bodyaches) HEENT: Normal ENT Inspection Neck: Supple Respiratory: Lungs Clear, Decreased Breath Sounds Cardiovascular: Regular Rate, Rhythm Capillary Refill: Less Than 3 Seconds Gastrointestinal: normal bowel sounds, non tender, soft Extremity: Non Tender, No Calf Tenderness, No Pedal Edema Neurologic/Psychiatric: Alert, Oriented x3 Skin: Warm/Dry Results Lab Laboratory Tests 07/23/18 18:51 07/24/18 07:16 07/25/18 05:00 Assessment/Plan Assessment/Plan Acute bilateral pneumonia with hypoxia -Maxipime Pulmonary edema with bilateral pleural effusions and worsening SOB -Give Lasix 80mg iv lasix x 1 -check stat ABG, and CXR. Influenza A -Tamiflu WHITNEY HOLLOWAY DO Jul 25, 2018 10:13
[2018-07-25 10:25] LABS: HEMOGLOBIN 10.7 G/DL (11.5-16.0); MEAN PLATELET VOLUME 10.1 FL (7.4-10.4); RED CELL DISTRIBUTION WIDTH 15.5 % (10.0-14.5); WHITE BLOOD COUNT 17.8 10^3/uL (4.3-11.0)
[2018-07-25] MEDS ORDERED: FUROSEMIDE 40 MG/4 ML INJ (LASIX) IVP NR (10:44)
[2018-07-25 10:49] LABS: ALANINE AMINOTRANSFERASE 18 U/L (0-55); ALBUMIN 2.5 GM/DL (3.2-4.5); ALKALINE PHOSPHATASE 149 U/L (40-136); BILIRUBIN,TOTAL 0.4 MG/DL (0.1-1.0); BUN/CREATININE RATIO 19; CALCIUM 8.6 MG/DL (8.5-10.1); CARBON DIOXIDE 19 MMOL/L (21-32); CHLORIDE 107 MMOL/L (98-107); CREATININE SERUM 0.95 MG/DL (0.60-1.30); GFR ESTIMATED > 60; GLUCOSE 87 MG/DL (70-105); MAGNESIUM 1.6 MG/DL (1.8-2.4); PHOSPHORUS 3.4 MG/DL (2.3-4.7); SODIUM 134 MMOL/L (135-145); TOTAL PROTEIN 7.9 GM/DL (6.4-8.2)
--- NOTE | 2018-07-25 11:01 | Progress Note-Hospitalist ---
Subjective HPI/CC On Admission Date Seen by Provider: Jul 25, 2018 Time Seen by Provider: 11:15 Subjective/Events-last exam Patient with more issues with AMS and hypoxia so was transferred to the ICU Patient very complicated since returning from [place] for anoxic brain injury from hypoglycemia episode and RAYRAY Patient confused Reviewed meds and labs Review of Systems General: Fatigue Pulmonary: Dyspnea Neurological: Confusion Focused Exam Lactate Level 07/23/18 20:23: Lactic Acid Level 1.30 07/25/18 10:19: Lactic Acid Level 2.04*H 07/25/18 14:26: Lactic Acid Level 1.57 Lactic Acid Level Objective Exam Vital Signs Vital Signs Date Time Temp Pulse Resp B/P (MAP) Pulse Ox O2 Delivery O2 Flow Rate FiO2 07/25/18 18:00 86 25 157/87 (110) 95 Nasal Cannula 2.00 07/25/18 16:00 98.6 07/23/18 23:45 21 Capillary Refill : Less Than 3 SecondsLess Than 3 Seconds General Appearance: Chronically ill, Moderate Distress (due to bodyaches), Obese HEENT: Normal ENT Inspection Neck: Supple Respiratory: No Accessory Muscle Use, No Respiratory Distress, Crackles, Wheezing Cardiovascular: Regular Rate, Rhythm Gastrointestinal: Normal Bowel Sounds, Non Tender, Soft Rectal: Deferred Back: No CVA Tenderness Extremity: Non Tender, No Calf Tenderness, No Pedal Edema Neurologic/Psychiatric: Alert, Disoriented Skin: Warm/Dry Results/Procedures Lab Laboratory Tests 07/25/18 05:00 07/25/18 10:19 Patient resulted labs reviewed. Assessment/Plan Assessment and Plan Assess & Plan/Chief Complaint Assessment: Bilateral pneumonia Influenza A Recent anoxic brain injury from hypoglycemia episode DM Plan: ICu transfer Monitor closely Very complex case Diagnosis/Problems Diagnosis/Problems (1) Pneumonia Status: Acute Qualifiers: Pneumonia type: due to unspecified organism Laterality: bilateral Lung location: unspecified part of lung Qualified Codes: J18.9 - Pneumonia, unspecified organism (2) Hypoxia Status: Acute (3) Hypertension Status: Chronic Qualifiers: Hypertension type: unspecified Qualified Codes: I10 - Essential (primary) hypertension (4) Altered mental status Status: Chronic Qualifiers: Altered mental status type: unspecified Qualified Codes: R41.82 - Altered mental status, unspecified (5) Neurocognitive deficits Status: Chronic Clinical Quality Measures DVT/VTE Risk/Contraindication: Risk Factor Score Per Nursin RFS Level Per Nursing on Admit: 4+=Very High SOHAIL HUBER DO Jul 25, 2018 11:01
--- NOTE | 2018-07-25 11:15 | NUR ---
Notified Dr. Ceja at this time of critical Lactic acid of 2.04. This RN states to that patient's RR- still in the 30s and finger stick BG 48 and that this rn had initiated hypoglycemia protocol. Patient awake and able to eat. BP elevated at 190/105 Dr. Ceja states to just get patient to ICU and that she is in distress now and to keep monitoring BP.
--- NOTE | 2018-07-25 11:40 | NUR ---
Patient transferred to 6-1 per BED accompanied by THIS RN, AND LIZANDRO,RT. FRIENDS OF PATIENT THAT PT STATES IS LIKE FAMILY IS PRESENT AND THEY WERE notified OF and understand transfer. Personal belongings with patient. BEDSIDE Report given to SHELBY CHAVEZ. SHELBY CHAVEZ TO ASSUME CARE OF PATIENT AT THIS TIME.
[2018-07-25] MEDS ORDERED: DEXTROSE 10% IV SOLUTION 1,000 ML IV ONE (11:51)
[2018-07-25] MEDS: ACETAMINOPHEN 325 MG TABLET PO PRN (12:40)
[2018-07-25] MEDS ORDERED: DEXTROSE 50% 50 ML (IMS) SYR IV PRN (13:15)
[2018-07-25] MEDS ORDERED: DEXTROSE 10% IV SOLUTION 1,000 ML IV PRN (13:15)
[2018-07-25] MEDS ORDERED: GLUCAGON EMERGENCY 1 MG/KIT IM PRN (13:15)
[2018-07-25] MEDS ORDERED: CEFEPIME 2 GM (MAXIPIME) VIAL ONE (20:12)
[2018-07-25] MEDS ORDERED: WATER (STERILE) FOR INJECTION 20 ML ONE (20:12)
[2018-07-25] MEDS: fentaNYL INJECTION 100 MCG/2 ML AMP IVP PRN (20:24)
[2018-07-25] MEDS: OSELTAMIVIR 75 MG (TAMIFLU) CAPSULE PO SCH (20:25)
[2018-07-25] MEDS: PREGABALIN 100 MG (LYRICA) CAPSULE PO SCH (20:25)
[2018-07-25] MEDS: CEFEPIME 2,000 MG/SWFI 20 ML IV PUSH IV SCH ×2 (21:50)
[2018-07-26] VITALS (21 sets, daily range): BP systolic 108–169; BP diastolic 54–107
[2018-07-26] MEDS: ACETAMINOPHEN 325 MG TABLET PO PRN ×2 (00:01→08:57)
[2018-07-26] MEDS: RT-ALBUTEROL/IPRATROPIUM 3 ML (DUONEB) VIAL INH SCH ×4 (01:54→15:20)
[2018-07-26] MEDS: fentaNYL INJECTION 100 MCG/2 ML AMP IVP PRN ×4 (02:28→19:58)
[2018-07-26 04:06] LABS: BASOPHILS % (AUTO) 0 % (0-10); EOSINOPHILS # (AUTO) 0.1 10^3/uL (0.0-0.3); EOSINOPHILS % (AUTO) 1 % (0-10); HEMATOCRIT 29 % (35-52); HEMOGLOBIN 9.1 G/DL (11.5-16.0); LYMPHOCYTES # (AUTO) 2.4 X 10^3 (1.0-4.0); LYMPHOCYTES % (AUTO) 15 % (12-44); MEAN CORPUSCULAR HEMOGLOBIN 29 PG (25-34); MEAN CORPUSCULAR HGB CONC 32 G/DL (32-36); MEAN CORPUSCULAR VOLUME 92 FL (80-99); MEAN PLATELET VOLUME 10.3 FL (7.4-10.4); MONOCYTES # (AUTO) 0.9 X 10^3 (0.0-1.0); MONOCYTES % (AUTO) 6 % (0-12); NEUTROPHILS # (AUTO) 12.4 X 10^3 (1.8-7.8); NEUTROPHILS % (AUTO) 79 % (42-75); PLATELET COUNT 498 10^3/uL (130-400); RED CELL DISTRIBUTION WIDTH 15.4 % (10.0-14.5); WHITE BLOOD COUNT 15.8 10^3/uL (4.3-11.0)
[2018-07-26 04:32] LABS: BUN/CREATININE RATIO 20; CALCIUM 8.3 MG/DL (8.5-10.1); CARBON DIOXIDE 18 MMOL/L (21-32); CHLORIDE 104 MMOL/L (98-107); CREATININE SERUM 0.97 MG/DL (0.60-1.30); GFR ESTIMATED > 60; GLUCOSE 157 MG/DL (70-105); MAGNESIUM 1.6 MG/DL (1.8-2.4); PHOSPHORUS 3.6 MG/DL (2.3-4.7); POTASSIUM 5.2 MMOL/L (3.6-5.0); SODIUM 131 MMOL/L (135-145)
--- NOTE | 2018-07-26 04:41 | Pulmonary Progress Note ---
Subjective Time Seen by a Provider: 18:55 Subjective/Events-last exam pt is confused. Sepsis Event Evaluation Height, Weight, BMI Height: 5'2.00" Weight: 199lbs. 0.0oz. 90.840663lz; 35.9 BMI Method:Stated Focused Exam Lactate Level 07/25/18 10:19: Lactic Acid Level 2.04*H 07/25/18 14:26: Lactic Acid Level 1.57 07/26/18 04:00: Lactic Acid Level 0.72 Lactic Acid Level Laboratory Tests Test 07/26/18 04:00 Lactic Acid Level 0.72 MMOL/L (0.50-2.00) Exam Exam Vital Signs Date Time Temp Pulse Resp B/P (MAP) Pulse Ox O2 Delivery O2 Flow Rate FiO2 07/26/18 03:00 78 13 159/97 (117) 98 Nasal Cannula 3.00 07/26/18 02:00 89 28 161/93 (115) 100 Nasal Cannula 3.00 07/26/18 01:56 97 Nasal Cannula 2.00 07/26/18 01:00 84 07/26/18 01:00 84 25 147/85 (105) 98 Nasal Cannula 3.00 07/26/18 00:30 87 32 164/92 (116) 95 Nasal Cannula 3.00 07/26/18 00:00 96 25 169/107 (127) 94 Nasal Cannula 3.00 07/25/18 23:55 97.9 Nasal Cannula 3.00 07/25/18 23:00 77 18 143/79 (100) 98 Nasal Cannula 3.00 07/25/18 22:30 74 17 143/87 (105) 97 Nasal Cannula 3.00 07/25/18 22:00 86 20 154/94 (114) 95 Nasal Cannula 3.00 07/25/18 21:00 84 38 175/104 (127) 98 Nasal Cannula 3.00 07/25/18 20:42 98 Nasal Cannula 2.00 07/25/18 20:00 Nasal Cannula 3.00 07/25/18 20:00 86 28 158/84 (108) 98 Nasal Cannula 3.00 07/25/18 19:00 98.0 Nasal Cannula 3.00 07/25/18 19:00 81 07/25/18 19:00 81 25 153/89 (110) 97 Nasal Cannula 3.00 07/25/18 18:00 86 25 157/87 (110) 95 Nasal Cannula 2.00 07/25/18 17:00 85 29 158/93 (114) 95 Nasal Cannula 2.00 07/25/18 16:00 98.6 07/25/18 16:00 76 36 162/77 (105) 95 Nasal Cannula 2.00 07/25/18 15:00 92 28 182/110 (134) 95 Nasal Cannula 2.00 07/25/18 14:00 88 35 163/94 (117) 95 Nasal Cannula 2.00 07/25/18 13:00 96 31 163/91 (115) 96 Nasal Cannula 2.00 07/25/18 12:55 111 07/25/18 12:00 97.9 95 24 180/110 (133) 97 Nasal Cannula 2.00 07/25/18 11:51 92 07/25/18 08:14 Nasal Cannula 2.00 07/25/18 08:04 96 Nasal Cannula 2.00 07/25/18 08:00 97.7 99 24 155/99 (117) 96 Nasal Cannula 2.00 I & O 07/26/18 07:00 Intake Total 492 ml Balance 492 ml Height & Weight Height: 5'2.00" Weight: 199lbs. 0.0oz. 90.838114lp; 35.9 BMI Method:Stated General Appearance: Chronically ill, Moderate Distress (due to bodyaches), Obese HEENT: Normal ENT Inspection Neck: Supple Respiratory: No Accessory Muscle Use, No Respiratory Distress, Crackles, Wheezing Cardiovascular: Regular Rate, Rhythm Capillary Refill: Less Than 3 Seconds Gastrointestinal: normal bowel sounds, non tender, soft Extremity: Non Tender, No Calf Tenderness, No Pedal Edema Neurologic/Psychiatric: Alert, Disoriented Skin: Warm/Dry Results Lab Laboratory Tests 07/24/18 07:16 07/25/18 05:00 07/25/18 10:19 07/26/18 04:00 Assessment/Plan Assessment/Plan Acute bilateral pneumonia with hypoxia -Maxipime Pulmonary edema with bilateral pleural effusions and worsening SOB -Give Lasix 80mg iv lasix x 1 -check stat ABG, and CXR. Hyperkalemia -replace -Lasix 40mg IV X 1 Hypomag -replace Influenza A -Tamiflu WHITNEY HOLLOWAY DO Jul 26, 2018 04:41
[2018-07-26] MEDS ORDERED: FUROSEMIDE 40 MG/4 ML INJ (LASIX) IVP ONE (04:45)
[2018-07-26] MEDS: inSUlin ASPART (NovoLOG) 1 UNIT/0.01 ML (CHARGE PER UNIT) SC SCH ×7 (04:52→22:02)
[2018-07-26] MEDS ORDERED: ENOXAPARIN 30 MG/0.3 ML (LOVENOX) SYR SC SCH (05:00)
[2018-07-26] MEDS ORDERED: FUROSEMIDE 40 MG/4 ML INJ (LASIX) ONE (05:04)
[2018-07-26] MEDS ORDERED: ENOXAPARIN 40 MG/0.4 ML (LOVENOX) SYR ONE (05:05)
[2018-07-26] MEDS: MAGNESIUM 1 GM/100 ML IVPB 100 ML IV SCH ×2 (05:16→06:59)
[2018-07-26] MEDS ORDERED: POTASSIUM CL 10MEQ/50ML IVPB 50 ML IV SCH (06:00)
[2018-07-26] MEDS ORDERED: KCL 20 MEQ TAB (K-DUR) PO SCH (06:00)
[2018-07-26] MEDS ORDERED: MAGNESIUM 1 GM/100 ML IVPB 100 ML IV SCH (06:00)
[2018-07-26] MEDS: OSELTAMIVIR 75 MG (TAMIFLU) CAPSULE PO SCH ×2 (08:57→22:02)
[2018-07-26] MEDS: CARVEDILOL 6.25 MG (COREG) TAB PO SCH ×2 (08:57→22:01)
[2018-07-26] MEDS: inSUlin DETERMIR 1 UNIT/0.01 ML (LEVEMIR) CHARGE PER UNIT SQ SCH ×2 (08:58→22:02)
[2018-07-26] MEDS: PANTOPRAZOLE 40 MG (PROTONIX) VIAL IV SCH (08:58)
[2018-07-26] MEDS ORDERED: ENOXAPARIN 40 MG/0.4 ML (LOVENOX) SYR SC SCH (09:00)
[2018-07-26] MEDS ORDERED: RT-ALBUTEROL/IPRATROPIUM 3 ML (DUONEB) VIAL INH PRN (09:15)
[2018-07-26] MEDS ORDERED: IOHEXOL 350 MG/ML 100 ML (OMNIPAQUE 350) VIAL IV ONE (09:30)
[2018-07-26] MEDS ORDERED: CATHETER FLUSH 10 ML SYR IV PRN (09:30)
[2018-07-26] MEDS ORDERED: RECEIVED CONTRAST 20 ML VIAL IV SCH (09:30)
[2018-07-26] MEDS ORDERED: NS 100 ML (IVPB) BAG IV ONE (09:30)
--- NOTE | 2018-07-26 10:02 | Diagnostic Imaging Report ---
INDICATION: Hypoxia. TECHNIQUE: Single view chest at 4:12 AM. CORRELATION STUDY: 07/25/2018 FINDINGS: Heart size is enlarged. Abnormal fullness about the bilateral hilar structures appears more prominent from prior study. Some of this may reflect a component of congestion versus infiltrate. There is prominent scattered, somewhat triangular densities in the lateral aspect of both lung qureshi. Likely a combination of effusion with consolidation. Perhaps slightly more prominent from prior study. IMPRESSION: 1. Cardiac enlargement. Fullness with infiltrate and/or edema about the perihilar regions, appears more prominent from prior study. 2. Peripheral densities of the mid and lower lung qureshi persist, perhaps slightly more prominent. This is likely a combination of fluid within the fissure planes as well as consolidation of the mid and lower lung qureshi. Overall findings are adversely changed from prior study. Dictated by: Dictated on workstation # [id number]
--- NOTE | 2018-07-26 12:07 | Progress Note-Hospitalist ---
Subjective HPI/CC On Admission Date Seen by Provider: Jul 26, 2018 Time Seen by Provider: 11:30 Subjective/Events-last exam Patient sleeping and about the same No pain is reported at this time Poor prognosis senior living remains since the devastating brain injury occurred Review of Systems General: Fatigue Pulmonary: Dyspnea Focused Exam Lactate Level 07/25/18 14:26: Lactic Acid Level 1.57 07/26/18 04:00: Lactic Acid Level 0.72 07/26/18 12:46: Lactic Acid Level 1.17 Lactic Acid Level Laboratory Tests Test 07/26/18 12:46 Lactic Acid Level 1.17 MMOL/L (0.50-2.00) Objective Exam Vital Signs Vital Signs Date Time Temp Pulse Resp B/P (MAP) Pulse Ox O2 Delivery O2 Flow Rate FiO2 07/26/18 12:00 97.8 07/26/18 11:33 99 Nasal Cannula 3.00 07/26/18 10:00 92 26 152/93 (112) 07/26/18 08:16 32 Capillary Refill : Less Than 3 SecondsLess Than 3 Seconds General Appearance: No Apparent Distress, Chronically ill, Obese, Other (asleep ) HEENT: Normal ENT Inspection Neck: Supple Respiratory: No Accessory Muscle Use, No Respiratory Distress, Crackles, Wheezing Cardiovascular: Regular Rate, Rhythm Gastrointestinal: Normal Bowel Sounds, Non Tender, Soft Rectal: Deferred Back: No CVA Tenderness Extremity: Non Tender, No Calf Tenderness, No Pedal Edema Neurologic/Psychiatric: Other (asleep) Skin: Warm/Dry Results/Procedures Lab Laboratory Tests 07/26/18 04:00 Patient resulted labs reviewed. Assessment/Plan Assessment and Plan Assess & Plan/Chief Complaint Assessment: Bilateral pneumonia Influenza A Recent anoxic brain injury from hypoglycemia episode DM Volume overload Plan: ICU maintained Monitor closely Very complex case Diagnosis/Problems Diagnosis/Problems (1) Pneumonia Status: Acute Qualifiers: Pneumonia type: due to unspecified organism Laterality: bilateral Lung location: unspecified part of lung Qualified Codes: J18.9 - Pneumonia, unspecified organism (2) Hypoxia Status: Acute (3) Hypertension Status: Chronic Qualifiers: Hypertension type: unspecified Qualified Codes: I10 - Essential (primary) hypertension (4) Altered mental status Status: Chronic Qualifiers: Altered mental status type: unspecified Qualified Codes: R41.82 - Altered mental status, unspecified (5) Neurocognitive deficits Status: Chronic Clinical Quality Measures DVT/VTE Risk/Contraindication: Risk Factor Score Per Nursin RFS Level Per Nursing on Admit: 4+=Very High SOHAIL HUBER DO Jul 26, 2018 12:07
[2018-07-26 13:20] LABS: PHOSPHORUS 4.4 MG/DL (2.3-4.7)
[2018-07-26 13:27] LABS: CREATININE SERUM 1.24 MG/DL (0.60-1.30); POTASSIUM 5.1 MMOL/L (3.6-5.0)
[2018-07-26 13:28] LABS: CALCIUM 8.4 MG/DL (8.5-10.1)
--- NOTE | 2018-07-26 17:47 | NUR ---
TELEPHONE REPORT GIVEN TO ALLAN RYAN ON 4TH FLOOR. PATIENT TO TRANSFER TO ROOM 410. DENIES ANY NEEDS/PAIN AT THIS TIME. SAFETY PRECAUTIONS IN PLACE. MAINTAINING POC.
--- NOTE | 2018-07-26 18:30 | NUR ---
PATIENT TO ROOM VIA WHEELCHAIR BY CT STAFF. PATIENT SETTLED INTO BED WITH 2 L OXYGEN NASAL CANULA.. ORANGE JUICE GIVEN AND PATIENT ORDERED DINNER. PATIENT DENIES ANY OTHER NEEDS AT THIS TIME.
--- NOTE | 2018-07-26 20:15 | Diagnostic Imaging Report ---
PROCEDURE: CT chest with contrast only. TECHNIQUE: Multiple contiguous axial images were obtained through the chest after administration of intravenous contrast. INDICATION: Cough, positive influenza, pleural effusions. COMPARISON: CT chest of 06/05/2018. FINDINGS: Lungs and airway: Multiple consolidations have developed in the bilateral lungs. These are most confluent in the superior segment of the bilateral lower lobes. Subpleural relaxation and compressive atelectasis has also developed in all five lobes. Pleura: Bilateral pleural effusions have enlarged but remain small in size. Both of these effusions demonstrate features of partial loculation. Heart and mediastinum: No supraclavicular or axillary lymphadenopathy. Multiple enlarged mediastinal lymph nodes are unchanged. Enlarged hilar lymph nodes are also similar. Heart is normal in size. No juxtaphrenic lymphadenopathy. Normal caliber thoracic aorta. Upper abdomen: No concerning abnormality in the upper abdomen. Cholecystectomy. Musculoskeletal: No worrisome focal osseous lesions. IMPRESSION: 1. Bilateral pleural effusions have increased in size but remain small. Both effusions now show partial loculation. 2. Airspace consolidations have developed within the bilateral lower lobes which could represent bacterial pneumonia superimposed on viral infection. 3. Stable mediastinal and hilar lymphadenopathy that is likely reactive in nature. Dictated by: Dictated on workstation # [id number]
[2018-07-26] MEDS ORDERED: WATER (STERILE) FOR INJECTION 20 ML ONE (21:49)
[2018-07-26] MEDS ORDERED: CEFEPIME 2 GM (MAXIPIME) VIAL ONE (21:49)
[2018-07-26] MEDS: PREGABALIN 100 MG (LYRICA) CAPSULE PO SCH (22:01)
[2018-07-26] MEDS: CEFEPIME 2,000 MG/SWFI 20 ML IV PUSH IV SCH ×2 (22:01)
[2018-07-27] VITALS (14 sets, daily range): BP systolic 117–161; BP diastolic 63–96
[2018-07-27] MEDS: RT-ALBUTEROL/IPRATROPIUM 3 ML (DUONEB) VIAL INH SCH ×7 (00:20→22:50)
[2018-07-27] MEDS: fentaNYL INJECTION 100 MCG/2 ML AMP IVP PRN ×5 (00:51→22:46)
[2018-07-27] MEDS: ACETAMINOPHEN 325 MG TABLET PO PRN (04:48)
[2018-07-27 04:56] LABS: BASOPHILS % (AUTO) 0 % (0-10); EOSINOPHILS # (AUTO) 0.1 10^3/uL (0.0-0.3); EOSINOPHILS % (AUTO) 1 % (0-10); HEMATOCRIT 29 % (35-52); HEMOGLOBIN 9.2 G/DL (11.5-16.0); LYMPHOCYTES # (AUTO) 2.5 X 10^3 (1.0-4.0); LYMPHOCYTES % (AUTO) 17 % (12-44); MEAN CORPUSCULAR HEMOGLOBIN 29 PG (25-34); MEAN CORPUSCULAR HGB CONC 32 G/DL (32-36); MEAN CORPUSCULAR VOLUME 90 FL (80-99); MONOCYTES # (AUTO) 0.8 X 10^3 (0.0-1.0); MONOCYTES % (AUTO) 5 % (0-12); NEUTROPHILS # (AUTO) 11.6 X 10^3 (1.8-7.8); NEUTROPHILS % (AUTO) 77 % (42-75); PLATELET COUNT 574 10^3/uL (130-400); RED CELL DISTRIBUTION WIDTH 14.9 % (10.0-14.5)
[2018-07-27 05:18] LABS: CALCIUM 8.4 MG/DL (8.5-10.1); CREATININE SERUM 1.34 MG/DL (0.60-1.30); MAGNESIUM 1.8 MG/DL (1.8-2.4); PHOSPHORUS 4.1 MG/DL (2.3-4.7); POTASSIUM 4.8 MMOL/L (3.6-5.0)
[2018-07-27] MEDS: inSUlin ASPART (NovoLOG) 1 UNIT/0.01 ML (CHARGE PER UNIT) SC SCH ×7 (06:43→21:38)
--- NOTE | 2018-07-27 07:46 | Pulmonary Progress Note ---
Subjective Time Seen by a Provider: 08:04 Subjective/Events-last exam Pt complains of back pain. Sepsis Event Evaluation Height, Weight, BMI Height: 5'2.00" Weight: 200lbs. 0.0oz. 90.247928qq; 35.9 BMI Method:Stated Focused Exam Lactate Level 07/25/18 14:26: Lactic Acid Level 1.57 07/26/18 04:00: Lactic Acid Level 0.72 07/26/18 12:46: Lactic Acid Level 1.17 Exam Exam Vital Signs Date Time Temp Pulse Resp B/P (MAP) Pulse Ox O2 Delivery O2 Flow Rate FiO2 07/27/18 06:17 95 Room Air 2.00 07/27/18 04:00 98.5 92 18 153/86 (108) 95 Nasal Cannula 2.00 07/27/18 03:26 93 Nasal Cannula 2.00 07/27/18 00:00 98.1 95 18 160/90 (113) 94 Nasal Cannula 2.00 07/26/18 19:45 Nasal Cannula 2.00 07/26/18 19:32 96.2 82 16 157/89 (111) 98 Nasal Cannula 1.00 07/26/18 17:00 74 15 121/74 (90) 97 Nasal Cannula 3.00 07/26/18 16:00 79 16 125/58 (80) 97 Nasal Cannula 3.00 07/26/18 16:00 96.5 07/26/18 15:20 99 Nasal Cannula 3.00 07/26/18 15:00 72 14 130/74 (92) 99 Nasal Cannula 3.00 07/26/18 14:00 74 16 135/80 (98) 98 Nasal Cannula 3.00 07/26/18 13:00 93 07/26/18 13:00 93 24 108/54 (72) 99 Nasal Cannula 3.00 07/26/18 12:00 97.8 07/26/18 12:00 78 16 156/98 (117) 100 Nasal Cannula 3.00 07/26/18 11:33 99 Nasal Cannula 3.00 07/26/18 11:00 70 16 150/84 (106) 100 Nasal Cannula 3.00 07/26/18 10:00 92 26 152/93 (112) 98 Nasal Cannula 3.00 07/26/18 09:00 86 24 141/75 (97) 95 Nasal Cannula 3.00 07/26/18 08:16 93 92 32 07/26/18 08:16 92 Nasal Cannula 3.00 07/26/18 08:00 97.9 07/26/18 08:00 Nasal Cannula 3.00 07/26/18 08:00 87 17 144/73 (96) 99 Nasal Cannula 3.00 I & O 07/27/18 06:59 Intake Total 1140 ml Output Total 1450 ml Balance -310 ml Height & Weight Height: 5'2.00" Weight: 200lbs. 0.0oz. 90.523444cb; 35.9 BMI Method:Stated General Appearance: No Apparent Distress, Chronically ill, Obese, Other (asleep ) HEENT: Normal ENT Inspection Neck: Supple Respiratory: No Accessory Muscle Use, No Respiratory Distress, Crackles, Wheezing Cardiovascular: Regular Rate, Rhythm Capillary Refill: Less Than 3 Seconds Gastrointestinal: normal bowel sounds, non tender, soft Extremity: Non Tender, No Calf Tenderness, No Pedal Edema Neurologic/Psychiatric: Other (asleep) Skin: Warm/Dry Results Lab Laboratory Tests 07/25/18 10:19 07/26/18 04:00 07/26/18 12:46 07/27/18 04:35 Assessment/Plan Assessment/Plan Acute bilateral pneumonia with hypoxia and persistent leukocytosis -Maxipime add vancomycin Pulmonary edema r/o empyema - Discussed with Dr. Mendoza he will place bilateral chest tubes in today. -Check US -Will transfer pt to ICU secondary to Placement of bilateral Chest tubes and r/o empyema -Hold Lovenox Hx of Anoxic encephalopathy Influenza A -Tamiflu WHITNEY HOLLOWAY DO Jul 27, 2018 07:46
[2018-07-27] MEDS ORDERED: PHARMACY TO DOSE IV SCH (08:15)
--- NOTE | 2018-07-27 08:51 | Diagnostic Imaging Report ---
Indication: Pleural effusions. Sonographic interrogation over the right and left posterior chest was performed. There are small effusions bilaterally. No marking was provided due to small volume. Impression: Small bilateral pleural effusions. Dictated by: Dictated on workstation # [id number]
--- NOTE | 2018-07-27 09:39 | NUR ---
VANCOMYCIN DOSING SCR 1.34; CRCL ~ 52; BOLUS VANC 20 MG/KG X 90 KG ~ 1750 MG THEN VANC 15 MG/KG ~ 1250 MG Q24H CHECK TROUGH LEVEL 220 AT 0900 HOLD DOSE AND CONTACT PHARMACY IF LEVEL IS GREATER THAN 20
[2018-07-27] MEDS: OSELTAMIVIR 75 MG (TAMIFLU) CAPSULE PO SCH (09:44)
[2018-07-27] MEDS: PANTOPRAZOLE 40 MG (PROTONIX) VIAL IV SCH (09:44)
[2018-07-27] MEDS: CARVEDILOL 6.25 MG (COREG) TAB PO SCH ×2 (09:44→21:37)
[2018-07-27] MEDS: inSUlin DETERMIR 1 UNIT/0.01 ML (LEVEMIR) CHARGE PER UNIT SQ SCH ×2 (09:44→21:37)
[2018-07-27 09:48] LABS: INR 1.1 (0.8-1.4); PROTHROMBIN TIME PATIENT 14.3 SEC (12.2-14.7)
[2018-07-27] MEDS ORDERED: VANCOMYCIN 1,750 MG/NS 500 ML IVPB IV NR ×2 (10:00)
--- NOTE | 2018-07-27 10:05 | NUR ---
PATIENT LEFT ROOM VIA WHEELCHAIR ACCOMPANIED BY CT STAFF. PATIENT GOING TO CT FOR CHEST TUBE PLACEMENT AND THEN TO ICU.
--- NOTE | 2018-07-27 10:19 | NUR ---
REPORT CALLED TO SHELBY YUSUF IN ICU. PATIENT BELONGINGS AND ISOLATION CART TAKEN TO ICU ROOM 11.
[2018-07-27] MEDS ORDERED: fentaNYL INJECTION 100 MCG/2 ML AMP IVP NR (10:23)
[2018-07-27] MEDS ORDERED: LIDOCAINE 1% INJ 20 ML 20 ML VIAL INJ NR (10:23)
[2018-07-27] MEDS ORDERED: MIDAZOLAM 2 MG/2 ML (VERSED) VIAL IVP NR (10:23)
--- NOTE | 2018-07-27 11:21 | Pre-Op Note & Conscious Sedat ---
Pre-Operative Progress Note H&P Reviewed The H&P was reviewed, patient examined and no changes noted. Date H&P Reviewed: Jul 27, 2018 Time H&P Reviewed: 10:00 Pre-Op Diagnosis: Pleural effusion Conscious Sedation Pre-Proced Time 10:00 ASA Score 2 For ASA 3 and 4: Consider anesthesia and medical clearance. Also, for patients with a history of failed moderate sedation consider anesthesia. Airway Lungs Heart ASA score ASA 1: a normal healthy patient ASA 2: a patient with a mild systemic disease (mid diabetes, controlled hypertension, obesity ASA 3: a patient with a severe systemic disease that limits activity (angina , COPD, prior Myocardial infarction) ASA 4: a patient with an incapacitating disease that is a constant threat to life (CHF, renal failure) ASA 5: a moribund patient not expected to survive 24 hrs. (ruptured aneurysm) ASA 6: a declared brain- patient whose organs are being harvested. For emergent operations, add the letter E after the classification Mallampati Classification Grade 2 Sedation Plan Analgesia, Amnesia, Plan communicated to team members, Discussed options with patient/fam, Discussed risks with patient/fam The patient is an appropriate candidate to undergo the planned procedure, sedation, and anesthesia. The patient immediately re-assessed prior to indication. SURY JARA MD Jul 27, 2018 11:21
[2018-07-27 12:38] LABS: BODY FLUID TRIGLYCERIDES 61 MG/DL; GLUCOSE,BODY FLUID 104 MG/DL; LDH,BODY FLUID 328 U/L; TOTAL PROTEIN,BODY FLUID 4.3 G/DL
[2018-07-27 12:38] LABS: BODY FLUID TRIGLYCERIDES 62 MG/DL; GLUCOSE,BODY FLUID 103 MG/DL
[2018-07-27] MEDS ORDERED: VITAMIN D3 1,000 UNITS (CHOLECALCIFEROL) TABLET PO NR (12:45)
[2018-07-27 12:46] LABS: BODY FLUID APPEARENCE SLT CLDY; BODY FLUID COLOR YELLOW; BODY FLUID RBC COUNT 1100 /uL; BODY FLUID SOURCE PLEURAL left; BODY FLUID WBC TOTAL COUNT 21 /uL
[2018-07-27 12:47] LABS: BODY FLUID APPEARENCE SLT CLDY; BODY FLUID COLOR YELLOW; BODY FLUID RBC COUNT 900 /uL; BODY FLUID SOURCE PLEURAL RIGHT; BODY FLUID WBC TOTAL COUNT 45.5 /uL
[2018-07-27] MEDS: ACETAMINOPHEN 325 MG TABLET PO SCH ×3 (13:19→21:37)
--- NOTE | 2018-07-27 13:27 | Progress Note-Standard ---
Standard Progress Note Progress Notes/Assess & Plan Date Seen by a Provider: Jul 27, 2018 Time Seen by a Provider: 12:50 Progress/Assessment & Plan Anesthesia Note ([id number]) Called to ICU for difficult IV start. 22 G IV start left hand. Secured and flushed with ease. Will be available as needed. Focused Exam Lactate Level 07/25/18 14:26: Lactic Acid Level 1.57 07/26/18 04:00: Lactic Acid Level 0.72 07/26/18 12:46: Lactic Acid Level 1.17 CLOVIS HENDERSON DO Jul 27, 2018 13:27
[2018-07-27 13:50] LABS: BF OTHER CELLS 0 %; LYMPHOCYTES,BODY FLUID 50 %
[2018-07-27 13:50] LABS: BF OTHER CELLS 0 %; LYMPHOCYTES,BODY FLUID 69 %
[2018-07-27 14:13] LABS: TOTAL PROTEIN,BODY FLUID 4.2 G/DL
--- NOTE | 2018-07-27 14:36 | Diagnostic Imaging Report ---
Indication: Loculated pleural effusions. Patient was brought to the CT suite and placed on the table in the left side down decubitus position. Axial imaging through the chest was performed to evaluate appropriate entry site. Procedure was performed utilizing conscious sedation with radiology nursing and constant patient monitoring. Patient was administered 75 mcg of fentanyl and 1 mg of Versed. Total procedure time was 11 minutes. Right chest was prepped and draped in usual sterile fashion. Small amount of 1% lidocaine was utilized for local anesthesia. The fluid collection in the right lower chest laterally was punctured with a Yueh needle. This was exchanged over an 0.35 Amplatz wire. Tract was dilated with 6 [place]ese and 8 [place]ese dilators. An 8.5 [place]ese all-purpose pigtail drain was advanced into the pleural space. Loop was formed. This was placed to a marvin drain. Yellowish serous fluid was removed and sent to lab for testing. Patient tolerated the procedure well. Impression: Successful CT-guided pleural drain placement on the right, utilizing conscious sedation. Dictated by: Dictated on workstation # [id number]
--- NOTE | 2018-07-27 14:36 | Diagnostic Imaging Report ---
INDICATION: Loculated pleural fluid collections. TECHNIQUE: Patient was brought to the CT suite, placed on the table in the [id number] decubitus position. Axial imaging through the chest was performed to evaluate appropriate entry site. The skin of the left chest was prepped and draped in the usual sterile fashion. Study was performed utilizing conscious sedation with radiology nursing and constant patient monitoring. Total procedure time was 5 minutes. Patient was given 75 mCg of Fentanyl and 1 mg of Versed throughout the procedure for bilateral pleural drains. FINDINGS: A loculated collection along the left lateral chest wall was percutaneously punctured with a Yueh needle. The needle was exchanged over an .035 guidewire. 6 Greenlandic an 8 Greenlandic dilators were used over the wire to dilate the tract. An 8.5 Greenlandic All-Purpose pigtail drain was advanced over the wire. Loop was formed. Small amount of fluid was removed for laboratory testing. Fluid appears to be yellow and serous. The catheter was affixed to the patient's skin and placed to a Angelia drain. Patient tolerated the procedure well and left the department in stable condition. IMPRESSION: Successful All-Purpose drain placement into the left lateral pleural space, as described utilizing conscious sedation. Dictated by: Dictated on workstation # [id number]
--- NOTE | 2018-07-27 16:23 | NUR ---
CM/SS, initial review of complex discharge. Patient was hospitalized here acute care 06/03/18-06/09/18 at which time she transferred to [facility]. She returned here to Inpatient Acute Rehab 07/02/18 and discharged 07/09/18 to skilled placement with [facility]. She stayed there approximately 8 hours and then left AMA and apparently returned home with family. Multiple comorbidities and complex management for home environment. There was discussion about hospice during the first acute stay if and when that appeared appropriate. Will follow patient and her children to discuss their desires for care and post hospital arrangements.
--- NOTE | 2018-07-27 19:39 | Progress Note (SOAP) ---
Subjective Date Seen by a Provider: Jul 27, 2018 Time Seen by a Provider: 12:30 Subjective/Events-last exam Fwup pneumonia with pleural effusions, hypoxia, influenza A, COPD, uncontrolled DM--insulin requiring, HTN, anoxic encephalopathy. Has been transferred to the ICU post bilateral chest tube placement by radiology. C/O low back pain. Resting and breathing easier. Focused Exam Lactate Level 07/25/18 14:26: Lactic Acid Level 1.57 07/26/18 04:00: Lactic Acid Level 0.72 07/26/18 12:46: Lactic Acid Level 1.17 Objective Exam Vital Signs Date Time Temp Pulse Resp B/P (MAP) Pulse Ox O2 Delivery O2 Flow Rate FiO2 07/27/18 16:00 78 18 150/81 (104) 97 Nasal Cannula 2.00 07/27/18 13:36 95 Nasal Cannula 1.00 07/27/18 13:00 79 07/27/18 12:45 80 25 123/84 (97) 96 Nasal Cannula 2.00 07/27/18 12:30 87 21 97 Nasal Cannula 2.00 07/27/18 12:15 76 14 156/74 (101) 97 Nasal Cannula 2.00 07/27/18 12:00 77 19 152/83 (106) 95 Nasal Cannula 2.00 07/27/18 11:45 83 21 161/85 (110) 90 Nasal Cannula 2.00 07/27/18 11:38 83 07/27/18 10:00 95 Room Air 2.00 07/27/18 08:00 Nasal Cannula 2.00 07/27/18 08:00 98.8 91 22 147/83 (104) 95 Room Air 07/27/18 06:17 95 Room Air 2.00 07/27/18 04:00 98.5 92 18 153/86 (108) 95 Nasal Cannula 2.00 07/27/18 03:26 93 Nasal Cannula 2.00 07/27/18 00:00 98.1 95 18 160/90 (113) 94 Nasal Cannula 2.00 07/26/18 19:45 Nasal Cannula 2.00 I & O 07/27/18 07:00 Intake Total 1140 ml Output Total 1450 ml Balance -310 ml Capillary Refill : Less Than 3 SecondsLess Than 3 Seconds General Appearance: No Apparent Distress Neck: Supple Respiratory: Decreased Breath Sounds Cardiovascular: Regular Rate, Rhythm Gastrointestinal: normal bowel sounds, non tender, soft Extremity: Non Tender, No Calf Tenderness Neurologic/Psychiatric: Alert, Oriented x3 Skin: Normal Color Results Lab Laboratory Tests 07/26/18 21:24: Glucometer 191H 07/27/18 01:10: 07/27/18 04:35: White Blood Count 15.0H, Red Blood Count 3.23L, Hemoglobin 9.2L, Hematocrit 29L , Mean Corpuscular Volume 90, Mean Corpuscular Hemoglobin 29, Mean Corpuscular Hemoglobin Concent 32, Red Cell Distribution Width 14.9H, Platelet Count 574H, Mean Platelet Volume 10.0, Neutrophils (%) (Auto) 77H, Lymphocytes (%) (Auto) 17 , Monocytes (%) (Auto) 5, Eosinophils (%) (Auto) 1, Basophils (%) (Auto) 0, Neutrophils # (Auto) 11.6H, Lymphocytes # (Auto) 2.5, Monocytes # (Auto) 0.8, Eosinophils # (Auto) 0.1, Basophils # (Auto) 0.0, Sodium Level 130L, Potassium Level 4.8, Chloride Level 102, Carbon Dioxide Level 22, Anion Gap 6, Blood Urea Nitrogen 24H, Creatinine 1.34H, Estimat Glomerular Filtration Rate 42, BUN/ Creatinine Ratio 18, Glucose Level 126H, Calcium Level 8.4L, Phosphorus Level 4.1, Magnesium Level 1.8 07/27/18 09:20: Prothrombin Time 14.3, INR Comment 1.1, Activated Partial Thromboplast Time 38H 07/27/18 10:49: Body Fluid Source PLEURAL RIGHT, Body Fluid Color YELLOW, Body Fluid Appearance SLT CLDY, Body Fluid pH 7.0, Body Fluid WBC 45.5, Body Fluid RBC 900, Body Fluid Polynuclear WBCs 29, Body Fluid Mononuclear WBCs 2, Body Fluid Lymphocytes 69, Body Fluid Other Cells 0, Body Fluid Glucose 103, Body Fluid Total Protein 4.2, Body Fluid Lactate Dehydrogenase 609, Body Fluid Triglycerides 62 07/27/18 11:11: Body Fluid Source PLEURAL left, Body Fluid Color YELLOW, Body Fluid Appearance SLT CLDY, Body Fluid pH 7.0, Body Fluid WBC 21, Body Fluid RBC 1100, Body Fluid Polynuclear WBCs 50, Body Fluid Mononuclear WBCs 0, Body Fluid Lymphocytes 50, Body Fluid Other Cells 0, Body Fluid Glucose 104, Body Fluid Total Protein 4.3, Body Fluid Lactate Dehydrogenase 328, Body Fluid Triglycerides 61 07/27/18 13:19: Glucometer 165H 07/27/18 17:23: Glucometer 288H Microbiology 07/23/18 Blood Culture - Preliminary, Resulted No growth 07/26/18 MRSA Screen - Final, Complete MRSA not isolated 07/23/18 Urine Culture - Final, Complete NO GROWTH Assessment/Plan Assessment/Plan Assess & Plan/Chief Complaint 1. Acute Bilateral Pneumonia with Bilateral Pleural Effusions--on Cefepime and Vancomycin, bilateral chest tubes placed by radiology today 2. Hypoxia--oxygen sats stable on NC 3. COPD--stable 4. Influenza A--on tamiflu 5. Hypertension--coreg restarted 6. Diabetes mellitus--insulin requiring--on levemir with SSI 7. Back Pain--start lidocaine patches and dose tylenol routinely Clinical Quality Measures Admission Status Admission Dx 1. Acute Bilateral Pneumonia--cover with maxipime due to recent hospital stay 2. Acute Hypoxia--on oxygen and SVNs 3. Influenza A--on tamiflu 4. Hypertension--restart coreg 5. Diabetes mellitus--insulin requiring--start levemir and SSI 6. Anoxic Encephalopathy--stable DVT/VTE Risk/Contraindication: Risk Factor Score Per Nursin RFS Level Per Nursing on Admit: 4+=Very High MIRELA LYLE DO Jul 27, 2018 19:39
[2018-07-27] MEDS: OSELTAMIVIR 30 MG (TAMIFLU) CAPSULE PO SCH (21:37)
[2018-07-27] MEDS: CEFEPIME 2,000 MG/SWFI 20 ML IV PUSH IV SCH ×2 (21:37)
[2018-07-27] MEDS: DULoxetine 30 MG (CYMBALTA) CAP PO SCH (21:37)
[2018-07-27] MEDS: LIDOCAINE PATCH REMOVAL TP SCH (22:20)
[2018-07-28] VITALS (14 sets, daily range): BP systolic 109–180; BP diastolic 54–116
[2018-07-28] MEDS: fentaNYL INJECTION 100 MCG/2 ML AMP IVP PRN ×5 (02:22→16:14)
[2018-07-28] MEDS: RT-ALBUTEROL/IPRATROPIUM 3 ML (DUONEB) VIAL INH SCH ×4 (02:31→19:22)
[2018-07-28 04:29] LABS: BASOPHILS % (AUTO) 0 % (0-10); EOSINOPHILS # (AUTO) 0.1 10^3/uL (0.0-0.3); EOSINOPHILS % (AUTO) 1 % (0-10); HEMATOCRIT 26 % (35-52); HEMOGLOBIN 8.3 G/DL (11.5-16.0); LYMPHOCYTES # (AUTO) 2.3 X 10^3 (1.0-4.0); LYMPHOCYTES % (AUTO) 23 % (12-44); MEAN CORPUSCULAR HEMOGLOBIN 29 PG (25-34); MEAN CORPUSCULAR HGB CONC 32 G/DL (32-36); MEAN CORPUSCULAR VOLUME 90 FL (80-99); MEAN PLATELET VOLUME 9.8 FL (7.4-10.4); MONOCYTES # (AUTO) 0.6 X 10^3 (0.0-1.0); MONOCYTES % (AUTO) 6 % (0-12); NEUTROPHILS # (AUTO) 7.3 X 10^3 (1.8-7.8); NEUTROPHILS % (AUTO) 70 % (42-75); PLATELET COUNT 590 10^3/uL (130-400); RED CELL DISTRIBUTION WIDTH 14.9 % (10.0-14.5); WHITE BLOOD COUNT 10.3 10^3/uL (4.3-11.0)
[2018-07-28 04:49] LABS: CALCIUM 8.2 MG/DL (8.5-10.1); CREATININE SERUM 1.42 MG/DL (0.60-1.30); MAGNESIUM 2.1 MG/DL (1.8-2.4); PHOSPHORUS 4.9 MG/DL (2.3-4.7); POTASSIUM 4.8 MMOL/L (3.6-5.0)
--- NOTE | 2018-07-28 05:35 | Pulmonary Progress Note ---
Subjective Time Seen by a Provider: 05:42 Subjective/Events-last exam PT feels better s/p Chest tubes placement Sepsis Event Evaluation Height, Weight, BMI Height: 5'2.00" Weight: 200lbs. 0.0oz. 90.048834wy; 35.9 BMI Method:Stated Focused Exam Lactate Level 07/25/18 14:26: Lactic Acid Level 1.57 07/26/18 04:00: Lactic Acid Level 0.72 07/26/18 12:46: Lactic Acid Level 1.17 Exam Exam Vital Signs Date Time Temp Pulse Resp B/P (MAP) Pulse Ox O2 Delivery O2 Flow Rate FiO2 07/28/18 05:00 77 19 180/109 (132) 93 Nasal Cannula 2.00 07/28/18 04:00 82 21 175/107 (129) 91 Nasal Cannula 2.00 07/28/18 04:00 Room Air 07/28/18 03:00 76 22 154/87 (109) 93 Nasal Cannula 2.00 07/28/18 02:33 94 Room Air 07/28/18 02:00 89 23 178/100 (126) 91 Nasal Cannula 2.00 07/28/18 01:00 81 07/28/18 01:00 75 19 117/64 (81) 93 Nasal Cannula 2.00 07/28/18 00:00 Room Air 07/28/18 00:00 99.0 07/28/18 00:00 71 17 111/54 (73) 91 Nasal Cannula 2.00 07/27/18 23:00 81 25 124/70 (88) 95 Nasal Cannula 2.00 07/27/18 22:52 92 Room Air 07/27/18 22:00 77 24 125/96 (106) 94 Nasal Cannula 2.00 07/27/18 21:00 90 24 117/63 (81) 91 Nasal Cannula 2.00 07/27/18 20:00 99.6 07/27/18 20:00 Room Air 07/27/18 20:00 93 18 130/71 (90) 93 Nasal Cannula 2.00 07/27/18 19:00 82 07/27/18 19:00 69 22 152/82 (105) 96 Nasal Cannula 2.00 07/27/18 16:00 78 18 150/81 (104) 97 Nasal Cannula 2.00 07/27/18 13:36 95 Nasal Cannula 1.00 07/27/18 13:00 79 07/27/18 12:45 80 25 123/84 (97) 96 Nasal Cannula 2.00 07/27/18 12:30 87 21 97 Nasal Cannula 2.00 07/27/18 12:15 76 14 156/74 (101) 97 Nasal Cannula 2.00 07/27/18 12:00 77 19 152/83 (106) 95 Nasal Cannula 2.00 07/27/18 11:45 83 21 161/85 (110) 90 Nasal Cannula 2.00 07/27/18 11:38 83 07/27/18 10:00 95 Room Air 2.00 07/27/18 08:00 Nasal Cannula 2.00 07/27/18 08:00 98.8 91 22 147/83 (104) 95 Room Air 07/27/18 06:17 95 Room Air 2.00 I & O 07/28/18 07:00 Intake Total 350 ml Output Total 120 ml Balance 230 ml Height & Weight Height: 5'2.00" Weight: 200lbs. 0.0oz. 90.466704wk; 35.9 BMI Method:Stated General Appearance: No Apparent Distress HEENT: Normal ENT Inspection Neck: Supple Respiratory: Decreased Breath Sounds Cardiovascular: Regular Rate, Rhythm Capillary Refill: Less Than 3 Seconds Gastrointestinal: normal bowel sounds, non tender, soft Extremity: Non Tender, No Calf Tenderness Neurologic/Psychiatric: Alert, Oriented x3 Skin: Normal Color Results Lab Laboratory Tests 07/26/18 12:46 07/27/18 04:35 07/28/18 04:20 Assessment/Plan Assessment/Plan Acute bilateral pneumonia with hypoxia and persistent leukocytosis -Maxipime vancomycin Pulmonary edema r/o empyema -S/P bilateral Chest tubes and r/o empyema -Hold Lovenox Hx of Anoxic encephalopathy Influenza A -Tamiflu DM Will make pt ICU step down status. Keep in ICU until tomorrow. WHITNEY BEASLEY DO Jul 28, 2018 05:35
[2018-07-28] MEDS: inSUlin ASPART (NovoLOG) 1 UNIT/0.01 ML (CHARGE PER UNIT) SC SCH ×7 (06:10→22:09)
[2018-07-28 06:36] LABS: ALBUMIN 2.3 GM/DL (3.2-4.5); BILIRUBIN,TOTAL 0.3 MG/DL (0.1-1.0); CALCIUM 8.3 MG/DL (8.5-10.1); CREATININE SERUM 1.41 MG/DL (0.60-1.30); POTASSIUM 4.9 MMOL/L (3.6-5.0); TOTAL PROTEIN 7.1 GM/DL (6.4-8.2)
[2018-07-28] MEDS: PANTOPRAZOLE 40 MG (PROTONIX) VIAL IV SCH (08:10)
[2018-07-28] MEDS: OSELTAMIVIR 30 MG (TAMIFLU) CAPSULE PO SCH (08:10)
[2018-07-28] MEDS: CARVEDILOL 6.25 MG (COREG) TAB PO SCH ×2 (08:10→22:09)
[2018-07-28] MEDS: ACETAMINOPHEN 325 MG TABLET PO SCH ×4 (08:11→22:08)
[2018-07-28] MEDS: VITAMIN D3 5,000 UNITS (CHOLECALCIFEROL ) CAPSULE PO SCH (08:11)
[2018-07-28] MEDS: LIDOCAINE 4% (SALONPAS) PATCH TOP SCH (08:12)
[2018-07-28] MEDS: inSUlin DETERMIR 1 UNIT/0.01 ML (LEVEMIR) CHARGE PER UNIT SQ SCH ×2 (08:12→22:10)
[2018-07-28] MEDS: DULoxetine 30 MG (CYMBALTA) CAP PO SCH ×2 (08:15→22:09)
--- NOTE | 2018-07-28 08:47 | Diagnostic Imaging Report ---
INDICATION: Pneumonia, pleural effusions COMPARISON: 07/26/2018 FINDINGS: Bilateral infiltrates have improved in the interim. There is decreased pleural fluid laterally left and right. No pneumothorax. IMPRESSION: Reduction in a presumed multilocular pleural effusions and bilateral infiltrates with no pneumothorax or adverse change identified. Dictated by: Dictated on workstation # [id number]
[2018-07-28] MEDS: VANCOMYCIN 1250 MG/NS 250 ML IVPB IV SCH ×2 (10:27)
--- NOTE | 2018-07-28 13:02 | NUR ---
Dr. Ceja stated pt able to transfer to 4th floor
[2018-07-28 13:50] LABS: PARAINFLU 2 PCR Not Detected (Not Detected)
[2018-07-28 14:09] LABS: PARAINFLU 1 PCR Not Detected (Not Detected)
[2018-07-28 14:10] LABS: RSV PCR Not Detected (Not Detected)
--- NOTE | 2018-07-28 19:25 | Wound Care Assessment ---
Wound Care Assessment Date Seen by Provider: Jul 28, 2018 Time Seen by Provider: 18:45 Chief Complaint R ankle area of concern. HPI The patient is a 52 year old female with a recent history of severe respiratory problems, immobility on a ventilator and a healed R lateral ankle pressure ulcer. This area is now reddened and a new focus of concern. The patient is on a low air loss mattress. A bordered foam dressing is ordered to protect the area of previous injury. Past Medical History: Admits Diabetes Type II Smoking Status: Former Smoker Recreational Drug Use: No Alcohol Use: Denies Use Review of Systems Pulmonary: Dyspnea Cardiovascular: No: Chest Pain Exam Vital Signs Date Time Temp Pulse Resp B/P (MAP) Pulse Ox O2 Delivery O2 Flow Rate FiO2 07/28/18 16:42 74 22 175/88 (117) 90 Room Air 2.00 07/28/18 09:43 21 07/28/18 00:00 99.0 Capillary Refill : Less Than 3 SecondsLess Than 3 Seconds Skin: other (area of concern due to erythema, R lateral ankle.) Results Laboratory Tests 07/27/18 21:36: Glucometer 100 07/28/18 04:20: White Blood Count 10.3, Red Blood Count 2.90L, Hemoglobin 8.3L, Hematocrit 26L, Mean Corpuscular Volume 90, Mean Corpuscular Hemoglobin 29, Mean Corpuscular Hemoglobin Concent 32, Red Cell Distribution Width 14.9H, Platelet Count 590H, Mean Platelet Volume 9.8, Neutrophils (%) (Auto) 70, Lymphocytes (%) (Auto) 23, Monocytes (%) (Auto) 6, Eosinophils (%) (Auto) 1, Basophils (%) (Auto) 0, Neutrophils # (Auto) 7.3, Lymphocytes # (Auto) 2.3, Monocytes # (Auto) 0.6, Eosinophils # (Auto) 0.1, Basophils # (Auto) 0.0, Sodium Level 133L, Potassium Level 4.9, Chloride Level 105, Carbon Dioxide Level 19L, Anion Gap 9, Blood Urea Nitrogen 29H, Creatinine 1.41H, Estimat Glomerular Filtration Rate 39, BUN/ Creatinine Ratio 21, Glucose Level 106H, Calcium Level 8.3L, Corrected Calcium 9.7, Phosphorus Level 4.9H, Magnesium Level 2.1, Total Bilirubin 0.3, Aspartate Amino Transf (AST/SGOT) 25, Alanine Aminotransferase (ALT/SGPT) 14, Alkaline Phosphatase 116, Lactate Dehydrogenase 321H, B-Type Natriuretic Peptide 242.9H, Total Protein 7.1, Albumin 2.3L 07/28/18 11:46: Glucometer 131H 07/28/18 16:39: Glucometer 55*L 07/28/18 17:09: Glucometer 45*L 07/28/18 17:33: Glucometer 71 Microbiology 07/23/18 Blood Culture - Preliminary, Resulted No growth 07/27/18 Gram Stain - Final, Resulted 07/27/18 Body Fluid Culture - Preliminary, Resulted No growth 07/26/18 MRSA Screen - Final, Complete MRSA not isolated 07/23/18 Urine Culture - Final, Complete NO GROWTH Microbiology 07/27/18 Gram Stain - Final, Resulted 07/27/18 Body Fluid Culture - Preliminary, Resulted No growth 07/27/18 Gram Stain - Final, Resulted 07/27/18 Body Fluid Culture - Preliminary, Resulted No growth Assessment/Plan/Dx 1. R lateral ankle area of concern. 2. Decreased mobility. 3. Respiratory failure. Plan: will protect area with bordered foam dressing. FABIAN ALEJANDRO MD Jul 28, 2018 19:25
--- NOTE | 2018-07-28 19:39 | Progress Note (SOAP) ---
Subjective Date Seen by a Provider: Jul 28, 2018 Time Seen by a Provider: 12:30 Subjective/Events-last exam Fwup pneumonia with pleural effusions, hypoxia, influenza A, COPD, uncontrolled DM--insulin requiring, HTN, anoxic encephalopathy. Breathing easier but c/o back pain. Focused Exam Lactate Level 07/26/18 04:00: Lactic Acid Level 0.72 07/26/18 12:46: Lactic Acid Level 1.17 Objective Exam Vital Signs Date Time Temp Pulse Resp B/P (MAP) Pulse Ox O2 Delivery O2 Flow Rate FiO2 07/28/18 19:22 91 Room Air 07/28/18 16:42 74 22 175/88 (117) 90 Room Air 2.00 07/28/18 13:00 73 07/28/18 12:00 Room Air 07/28/18 12:00 71 23 170/90 (116) 95 Nasal Cannula 2.00 07/28/18 11:00 63 13 134/82 (99) 93 Nasal Cannula 2.00 07/28/18 10:00 70 15 109/105 (106) 95 Nasal Cannula 2.00 07/28/18 09:52 92 Room Air 07/28/18 09:43 67 92 21 07/28/18 09:00 62 15 154/115 (128) 95 Nasal Cannula 2.00 07/28/18 08:00 Room Air 07/28/18 08:00 76 20 172/93 (119) 93 Nasal Cannula 2.00 07/28/18 07:00 92 07/28/18 07:00 92 20 90 Nasal Cannula 2.00 07/28/18 06:50 92 Room Air 07/28/18 06:00 72 17 174/100 (124) 94 Nasal Cannula 2.00 07/28/18 05:00 77 19 180/109 (132) 93 Nasal Cannula 2.00 07/28/18 04:00 82 21 175/107 (129) 91 Nasal Cannula 2.00 07/28/18 04:00 Room Air 07/28/18 03:00 76 22 154/87 (109) 93 Nasal Cannula 2.00 07/28/18 02:33 94 Room Air 07/28/18 02:00 89 23 178/100 (126) 91 Nasal Cannula 2.00 07/28/18 01:00 81 07/28/18 01:00 75 19 117/64 (81) 93 Nasal Cannula 2.00 07/28/18 00:00 Room Air 07/28/18 00:00 99.0 07/28/18 00:00 71 17 111/54 (73) 91 Nasal Cannula 2.00 07/27/18 23:00 81 25 124/70 (88) 95 Nasal Cannula 2.00 07/27/18 22:52 92 Room Air 07/27/18 22:00 77 24 125/96 (106) 94 Nasal Cannula 2.00 07/27/18 21:00 90 24 117/63 (81) 91 Nasal Cannula 2.00 07/27/18 20:00 99.6 07/27/18 20:00 Room Air 07/27/18 20:00 93 18 130/71 (90) 93 Nasal Cannula 2.00 I & O 07/28/18 07:00 Intake Total 850 ml Output Total 245 ml Balance 605 ml Capillary Refill : Less Than 3 SecondsLess Than 3 Seconds General Appearance: No Apparent Distress Neck: Supple Respiratory: Lungs Clear, Decreased Breath Sounds Cardiovascular: Regular Rate, Rhythm Gastrointestinal: normal bowel sounds, non tender, soft Neurologic/Psychiatric: Alert, Oriented x3 Skin: Warm/Dry Results Lab Laboratory Tests 07/27/18 21:36: Glucometer 100 07/28/18 04:20: White Blood Count 10.3, Red Blood Count 2.90L, Hemoglobin 8.3L, Hematocrit 26L, Mean Corpuscular Volume 90, Mean Corpuscular Hemoglobin 29, Mean Corpuscular Hemoglobin Concent 32, Red Cell Distribution Width 14.9H, Platelet Count 590H, Mean Platelet Volume 9.8, Neutrophils (%) (Auto) 70, Lymphocytes (%) (Auto) 23, Monocytes (%) (Auto) 6, Eosinophils (%) (Auto) 1, Basophils (%) (Auto) 0, Neutrophils # (Auto) 7.3, Lymphocytes # (Auto) 2.3, Monocytes # (Auto) 0.6, Eosinophils # (Auto) 0.1, Basophils # (Auto) 0.0, Sodium Level 133L, Potassium Level 4.9, Chloride Level 105, Carbon Dioxide Level 19L, Anion Gap 9, Blood Urea Nitrogen 29H, Creatinine 1.41H, Estimat Glomerular Filtration Rate 39, BUN/ Creatinine Ratio 21, Glucose Level 106H, Calcium Level 8.3L, Corrected Calcium 9.7, Phosphorus Level 4.9H, Magnesium Level 2.1, Total Bilirubin 0.3, Aspartate Amino Transf (AST/SGOT) 25, Alanine Aminotransferase (ALT/SGPT) 14, Alkaline Phosphatase 116, Lactate Dehydrogenase 321H, B-Type Natriuretic Peptide 242.9H, Total Protein 7.1, Albumin 2.3L 07/28/18 11:46: Glucometer 131H 07/28/18 16:39: Glucometer 55*L 07/28/18 17:09: Glucometer 45*L 07/28/18 17:33: Glucometer 71 Microbiology 07/23/18 Blood Culture - Preliminary, Resulted No growth 07/27/18 Gram Stain - Final, Resulted 07/27/18 Body Fluid Culture - Preliminary, Resulted No growth 07/26/18 MRSA Screen - Final, Complete MRSA not isolated 07/23/18 Urine Culture - Final, Complete NO GROWTH Assessment/Plan Assessment/Plan Assess & Plan/Chief Complaint 1. Acute Bilateral Pneumonia with Bilateral Pleural Effusions--on Cefepime and Vancomycin, bilateral chest tubes in place, transfer to Medical Floor 2. Hypoxia--oxygen sats stable on NC 3. COPD--stable 4. Influenza A--on tamiflu 5. Hypertension--coreg restarted 6. Diabetes mellitus--insulin requiring--on levemir with SSI 7. Back Pain--start lidocaine patches and dose tylenol routinely with tramadol Clinical Quality Measures Admission Status Admission Dx 1. Acute Bilateral Pneumonia--cover with maxipime due to recent hospital stay 2. Acute Hypoxia--on oxygen and SVNs 3. Influenza A--on tamiflu 4. Hypertension--restart coreg 5. Diabetes mellitus--insulin requiring--start levemir and SSI 6. Anoxic Encephalopathy--stable DVT/VTE Risk/Contraindication: Risk Factor Score Per Nursin RFS Level Per Nursing on Admit: 4+=Very High MIRELA LYLE DO Jul 28, 2018 19:39
[2018-07-28] MEDS: LIDOCAINE PATCH REMOVAL TP SCH (22:13)
[2018-07-28] MEDS ORDERED: WATER (STERILE) FOR INJECTION 20 ML ONE (22:15)
[2018-07-28] MEDS ORDERED: CEFEPIME 2 GM (MAXIPIME) VIAL ONE (22:15)
[2018-07-28] MEDS: CEFEPIME 2,000 MG/SWFI 20 ML IV PUSH IV SCH ×2 (22:29)
[2018-07-29] VITALS (8 sets, daily range): BP systolic 120–191; BP diastolic 78–100
[2018-07-29] MEDS: RT-ALBUTEROL/IPRATROPIUM 3 ML (DUONEB) VIAL INH SCH ×5 (01:29→20:17)
[2018-07-29] MEDS: fentaNYL INJECTION 100 MCG/2 ML AMP IVP PRN (04:04)
[2018-07-29 04:31] LABS: BASOPHILS % (AUTO) 0 % (0-10); EOSINOPHILS # (AUTO) 0.1 10^3/uL (0.0-0.3); EOSINOPHILS % (AUTO) 1 % (0-10); HEMATOCRIT 27 % (35-52); HEMOGLOBIN 8.4 G/DL (11.5-16.0); LYMPHOCYTES # (AUTO) 2.2 X 10^3 (1.0-4.0); LYMPHOCYTES % (AUTO) 22 % (12-44); MEAN CORPUSCULAR HEMOGLOBIN 28 PG (25-34); MEAN CORPUSCULAR HGB CONC 32 G/DL (32-36); MEAN CORPUSCULAR VOLUME 89 FL (80-99); MEAN PLATELET VOLUME 10.1 FL (7.4-10.4); MONOCYTES # (AUTO) 0.7 X 10^3 (0.0-1.0); MONOCYTES % (AUTO) 7 % (0-12); NEUTROPHILS # (AUTO) 7.3 X 10^3 (1.8-7.8); NEUTROPHILS % (AUTO) 71 % (42-75); PLATELET COUNT 534 10^3/uL (130-400); RED CELL DISTRIBUTION WIDTH 14.3 % (10.0-14.5); WHITE BLOOD COUNT 10.3 10^3/uL (4.3-11.0)
[2018-07-29 04:48] LABS: CALCIUM 8.1 MG/DL (8.5-10.1); CREATININE SERUM 1.31 MG/DL (0.60-1.30); MAGNESIUM 1.7 MG/DL (1.8-2.4); PHOSPHORUS 4.9 MG/DL (2.3-4.7); POTASSIUM 4.9 MMOL/L (3.6-5.0)
[2018-07-29] MEDS: inSUlin ASPART (NovoLOG) 1 UNIT/0.01 ML (CHARGE PER UNIT) SC SCH ×7 (05:23→22:18)
--- NOTE | 2018-07-29 06:58 | Pulmonary Progress Note ---
Subjective Time Seen by a Provider: 15:13 Subjective/Events-last exam pt has no complaints Sepsis Event Evaluation Height, Weight, BMI Height: 5'2.00" Weight: 199lbs. 0.0oz. 90.247051zt; 35.9 BMI Method:Stated Focused Exam Lactate Level 07/26/18 12:46: Lactic Acid Level 1.17 Exam Exam Vital Signs Date Time Temp Pulse Resp B/P (MAP) Pulse Ox O2 Delivery O2 Flow Rate FiO2 07/29/18 04:00 97.6 79 20 168/100 (122) 94 Room Air 07/29/18 01:29 94 Room Air 07/29/18 00:00 98.0 80 18 167/99 (121) 90 Room Air 07/28/18 20:00 99.1 101 18 92 Room Air 07/28/18 20:00 Room Air 07/28/18 19:22 91 Room Air 07/28/18 16:42 74 22 175/88 (117) 90 Room Air 2.00 07/28/18 16:00 Room Air 07/28/18 13:00 73 07/28/18 12:00 Room Air 07/28/18 12:00 71 23 170/90 (116) 95 Nasal Cannula 2.00 07/28/18 11:00 63 13 134/82 (99) 93 Nasal Cannula 2.00 07/28/18 10:00 70 15 109/105 (106) 95 Nasal Cannula 2.00 07/28/18 09:52 92 Room Air 07/28/18 09:43 67 92 21 07/28/18 09:00 62 15 154/115 (128) 95 Nasal Cannula 2.00 07/28/18 08:00 Room Air 07/28/18 08:00 76 20 172/93 (119) 93 Nasal Cannula 2.00 07/28/18 07:00 92 07/28/18 07:00 92 20 90 Nasal Cannula 2.00 I & O 07/29/18 07:00 Intake Total 1242.6 ml Output Total 130 ml Balance 1112.6 ml Height & Weight Height: 5'2.00" Weight: 199lbs. 0.0oz. 90.961835zr; 35.9 BMI Method:Stated General Appearance: No Apparent Distress HEENT: Normal ENT Inspection Neck: Supple Respiratory: Decreased Breath Sounds Cardiovascular: Regular Rate, Rhythm Capillary Refill: Less Than 3 Seconds Gastrointestinal: normal bowel sounds, non tender, soft Extremity: Non Tender, No Calf Tenderness Neurologic/Psychiatric: Alert, Oriented x3 Skin: Normal Color Results Lab Laboratory Tests 07/28/18 04:20 07/29/18 03:41 Assessment/Plan Assessment/Plan Acute bilateral pneumonia -Maxipime vancomycin -Douglas cultures neg thus far Pulmonary edema with exudative pleural effusions bilaterally. -S/P bilateral Chest tubes and r/o empyema -Repeat CXR pending -Hold Lovenox Hypomag, hypokalemia -Replace Hx of Anoxic encephalopathy Influenza A -Tamiflu WHITNEY HOLLOWAY DO Jul 29, 2018 06:58
[2018-07-29] MEDS: MAGNESIUM 1 GM/100 ML IVPB 100 ML IV SCH ×2 (07:42→08:55)
--- NOTE | 2018-07-29 08:14 | Diagnostic Imaging Report ---
INDICATION: Pleural effusions. TIME OF EXAM: 07:52 a.m. Correlation is made with prior exam from one day earlier. Bilateral pleural drains remain in place. Pleural fluid appears minimal. Bilateral perihilar infiltrates persist. There is no pneumothorax. IMPRESSION: Stable chest since one day earlier. Dictated by: Dictated on workstation # [id number]
[2018-07-29] MEDS: PANTOPRAZOLE 40 MG (PROTONIX) TAB PO SCH (08:55)
[2018-07-29] MEDS: DULoxetine 30 MG (CYMBALTA) CAP PO SCH ×2 (08:55→21:13)
[2018-07-29] MEDS: VITAMIN D3 5,000 UNITS (CHOLECALCIFEROL ) CAPSULE PO SCH (08:55)
[2018-07-29] MEDS: CARVEDILOL 6.25 MG (COREG) TAB PO SCH (08:55)
[2018-07-29] MEDS: ACETAMINOPHEN 325 MG TABLET PO SCH ×4 (08:56→21:14)
[2018-07-29] MEDS: LIDOCAINE 4% (SALONPAS) PATCH TOP SCH (08:56)
[2018-07-29] MEDS ORDERED: TROUGH ORDER-PHARMACY XX NR (09:00)
[2018-07-29] MEDS: VANCOMYCIN 1250 MG/NS 250 ML IVPB IV SCH ×2 (09:35)
--- NOTE | 2018-07-29 09:43 | NUR ---
CM/SS. Marketing Operations Coordinator attempted visit with patient but found her tearful and describing being in pain. Updated RN on behalf of patient. Multiple comorbidities. As earlier noted, patient has had an extensive decline and several levels of care over the past 8-10 weeks. Due to current pain level and tearfulness, deferred any discussion about next steps. Care plan not clear either, patient still has chest tubes and just transferred from ICU yesterday. Will involve family in discussions when patient's recovery and needs are better defined. Assume out of home environment is likely best option due to care requirements and limitations.
--- NOTE | 2018-07-29 11:04 | Physical Therapy Evaluation ---
PT Evaluation-General Medical Diagnosis Admission Date Jul 23, 2018 at 21:00 Medical Diagnosis: PNA, Hypoxia Onset Date: Jul 23, 2018 Therapy Diagnosis Therapy Diagnosis: decreased mobility Height/Weight Height (Feet): 5 Height (Inches): 2.00 Weight (Pounds): 197 Weight (Ounces): 4.0 Precautions Precautions/Isolations: Fall Prevention Weight Bear Status Right Lower Extremity: Right Full Weight Bearing Left Lower Extremity: Left Full Weight Bearing Referral Physician: Bailee Haider DO Reason for Referral: Evaluation/Treatment Medical History Pertinent Medical History: COPD, DM, GERD, HTN, Neuropathy, Renal Insufficiency , Smoking Additional Medical History opioid use, TBI, Pancreatitis, DDD, Cellulitis Current History Pt from [facility] to ER with c/o SOB and cough Reviewed History: Yes Social History Home: Single Level Current Living Status: Children Entry Into Home: Stairs Without Railing PT Steps Into Home: 2 Prior/Core FIM Prior Level of Function Therapy Code Descriptions/Definitions Functional [place] Measure: 0=Not Assessed/NA 4=Minimal Assistance 1=Total Assistance 5=Supervision or Setup 2=Maximal Assistance 6=Modified [place] 3=Moderate Assistance 7=Complete [place] Therapy Quality Codes: 6 Independent with activity with or without an assistive device 5 Patient requires set up or clean up by helper. Patient completes activity by themselves 4 Supervision or touching assist (CGA). [place] provide cues , steadying assist 3 The helper provides less than half the effort to complete the activity 2 The helper provides more than half the effort to complete the activity 1 Dependent. The helper does all the effort to complete an activity 7 Patient refused to complete or attempt activity 9 The patient did not perform the activity before the current illness or injury 88 Not attempted due to Medical conditions or safety concerns Functional Abilities and Goals: Independent: Patient completed the activities by him/herself, with or without an assistive device, with no assistance from a helper. Needed Some Help: Patient needed partial assistance from another person to complete activities. Dependent: A helper completed the activities for the patient. Unknown: Not Applicable: Bed Mobility: 7 Transfers (B,C,W/C) (FIM): 7 Gait: 7 Stairs: 7 Indoor Mobility (Ambulation): Independent Stairs: Independent Prior Devices Use: None PT Evaluation-Current Subjective Pt is EOB and requests to use bathroom. Pt agrees to PT assist with nurse aid. Pain Numeric Pain Scale: 8 Location Body Site: Back Pt/Family Goals Pt to return home Objective Patient Orientation: Person Attachments: Drains ROM/Strength ROM Lower Extremities WNL Strength Lower Extremities gross motor B LE (4/5) Integumentary/Posture Bowel Incontinence: No Bladder Incontinence: No Neuromuscular (Tone, Coordination, Reflexes) NT Sensory Vision: Wears Glasses Hearing: Functional Transfers Therapy Code Descriptions/Definitions Functional [place] Measure: 0=Not Assessed/NA 4=Minimal Assistance 1=Total Assistance 5=Supervision or Setup 2=Maximal Assistance 6=Modified [place] 3=Moderate Assistance 7=Complete [place] Transfers (B, C, W/C) (FIM): 5 Scootin Sit to/from Stand: 5 Gait Mode of Locomotion: Walk Anticipated Mode of Locomotion: Walk Gait (FIM): 1 Distance (FIM): 1=up to 49 ft Distance: 20'X2 Gait Level of Assist: 4 Gait Persons Needed: 1 Gait Assistive Device: None Balance Sitting Static: Good Sitting Dynamic: Good Standing Static: Good Standing Dynamic: Good Assessment/Needs Pt was able to amb into bathroom from EOB with no AD and CGA 20'. Pt required assist for bathroom skills. Pt able to amb to recliner 20' and requested to not walk anymore due to back pain. Pt was able to perform sitting LE ex of (AP, LAQ , hip flexion) x10 reps. Pt is in recliner with all needs met. Rehab Potential: Fair Post Rehab Potential-Barriers: co-morbidities, recent hospital stays PT Short Term Goals Short Term Goals Time Frame: Aug 05, 2018 Transfers (B,C,W/C) (FIM): 5 Gait (FIM): 2 Distance (FIM): 3=008-58 ft Gait Distance Comment: 50' Gait Level of Assist: 5 Gait Assistive Device: None PT Plan Problem List Problem List: Activity Tolerance, Functional Strength, Safety, Balance, Gait, Transfer, Bed Mobility Treatment/Plan Treatment Plan: Continue Plan of Care Treatment Plan: Bed Mobility, Education, Functional Activity Carlos, Functional Strength, Gait, Safety, Therapeutic Exercise, Transfers Treatment Duration: Aug 05, 2018 Frequency: 6 times per week Estimated Hrs Per Day: .25 hour per day (15-30') Patient and/or Family Agrees t: Yes Safety Risks/Education Patient Education: Gait Training, Transfer Techniques, Correct Positioning, Safety Issues Teaching Recipient: Patient Teaching Methods: Demonstration, Discussion Response to Teaching: Reinforcement Needed Discharge Recommendations Plan Patient will perform bed mobility and transfer training, balance and endurance training, functional strengthening, stair training, gait training, and education , to improve functional mobility and independence at home. Therapy D/C Recommendations: Assisted Living, Home w/ Family Support, Skilled Nursing Placement Time/GCodes Time In: 1020 Time Out: 1032 Total Billed Treatment Time: 12 Total Billed Treatment 1 visit EVL 12 min SHEA LOZOYA PT Jul 29, 2018 11:04
[2018-07-29] MEDS: inSUlin DETERMIR 1 UNIT/0.01 ML (LEVEMIR) CHARGE PER UNIT SQ SCH ×2 (12:56→22:18)
[2018-07-29] MEDS ORDERED: NS IV 500 ML 500 ML IV SCH (17:36)
[2018-07-29] MEDS ORDERED: HYDROCORTISONE 100 MG/2 ML (Solu-CORTEF) VIAL IV PRN (17:45)
[2018-07-29] MEDS ORDERED: IRON DEXTRAN INJECTION 1,000 MG in NS (IVPB) 250 ML IV NR (17:45)
[2018-07-29] MEDS ORDERED: IRON DEXTRAN INJECTION 25 MG in NS (IVPB) 5.75 ML IV NR (17:45)
[2018-07-29] MEDS ORDERED: EPINEPHrine INJECTION 1 MG/ML AMP IM PRN (17:45)
[2018-07-29] MEDS ORDERED: diphenhydrAMINE 50 MG/ML INJ (BENADRYL) IV PRN (17:45)
[2018-07-29] MEDS ORDERED: RT-ALBUTEROL SULF 2.5 MG/3 ML PRE-MIX VIAL IH PRN (17:45)
--- NOTE | 2018-07-29 17:57 | Progress Note (SOAP) ---
Subjective Date Seen by a Provider: Jul 29, 2018 Time Seen by a Provider: 12:30 Subjective/Events-last exam Fwup pneumonia with pleural effusions, hypoxia, influenza A, COPD, uncontrolled DM--insulin requiring, HTN, anoxic encephalopathy. C/O fatigue and getting depressed due to prolonged hospital stay. Objective Exam Vital Signs Date Time Temp Pulse Resp B/P (MAP) Pulse Ox O2 Delivery O2 Flow Rate FiO2 07/29/18 16:00 98.4 75 22 157/79 (105) 94 Room Air 07/29/18 15:29 92 Room Air 07/29/18 12:00 98.0 71 18 159/93 (115) 92 Room Air 07/29/18 10:53 91 Room Air 07/29/18 09:00 92 Room Air 2.00 07/29/18 08:00 97.8 80 18 191/98 (129) 90 Room Air 07/29/18 04:00 97.6 79 20 168/100 (122) 94 Room Air 07/29/18 01:29 94 Room Air 07/29/18 00:00 98.0 80 18 167/99 (121) 90 Room Air 07/28/18 20:00 99.1 101 18 92 Room Air 07/28/18 20:00 Room Air 07/28/18 19:22 91 Room Air I & O 07/29/18 06:59 Intake Total 1592.6 ml Output Total 190 ml Balance 1402.6 ml Capillary Refill : Less Than 3 SecondsLess Than 3 Seconds General Appearance: Mild Distress (tearful) Respiratory: Lungs Clear, Decreased Breath Sounds, Other (chest tubes in place bilaterally with minimal serous drainage in bags) Cardiovascular: Regular Rate, Rhythm Gastrointestinal: normal bowel sounds, non tender, soft Extremity: Non Tender, No Calf Tenderness, No Pedal Edema Neurologic/Psychiatric: Alert, Oriented x3 Skin: Warm/Dry Results Lab Laboratory Tests 07/28/18 21:25: Glucometer 172H 07/29/18 03:41: White Blood Count 10.3, Red Blood Count 2.97L, Hemoglobin 8.4L, Hematocrit 27L, Mean Corpuscular Volume 89, Mean Corpuscular Hemoglobin 28, Mean Corpuscular Hemoglobin Concent 32, Red Cell Distribution Width 14.3, Platelet Count 534H, Mean Platelet Volume 10.1, Neutrophils (%) (Auto) 71, Lymphocytes (%) (Auto) 22 , Monocytes (%) (Auto) 7, Eosinophils (%) (Auto) 1, Basophils (%) (Auto) 0, Neutrophils # (Auto) 7.3, Lymphocytes # (Auto) 2.2, Monocytes # (Auto) 0.7, Eosinophils # (Auto) 0.1, Basophils # (Auto) 0.0, Sodium Level 132L, Potassium Level 4.9, Chloride Level 103, Carbon Dioxide Level 21, Anion Gap 8, Blood Urea Nitrogen 31H, Creatinine 1.31H, Estimat Glomerular Filtration Rate 43, BUN/ Creatinine Ratio 24, Glucose Level 109H, Calcium Level 8.1L, Phosphorus Level 4.9H, Magnesium Level 1.7L 07/29/18 09:00: Vancomycin Level Trough 22.9H 07/29/18 11:27: Glucometer 285H 07/29/18 16:21: Glucometer 196H Microbiology 07/23/18 Blood Culture - Final, Complete No growth 07/27/18 Gram Stain - Final, Resulted 07/27/18 Body Fluid Culture - Preliminary, Resulted No growth 07/26/18 MRSA Screen - Final, Complete MRSA not isolated 07/23/18 Urine Culture - Final, Complete NO GROWTH Assessment/Plan Assessment/Plan Assess & Plan/Chief Complaint 1. Acute Bilateral Pneumonia with Bilateral Pleural Effusions--on Cefepime and Vancomycin, bilateral chest tubes in place, CXR repeated 2. Hypoxia--oxygen sats stable on NC 3. COPD--stable 4. Influenza A--treated 5. Hypertension--increase coreg dose 6. Diabetes mellitus--insulin requiring--on levemir with SSI 7. Back Pain--on lidocaine patches and dose tylenol routinely with tramadol 8. Anemia--give IV iron Clinical Quality Measures Admission Status Admission Dx 1. Acute Bilateral Pneumonia--cover with maxipime due to recent hospital stay 2. Acute Hypoxia--on oxygen and SVNs 3. Influenza A--on tamiflu 4. Hypertension--restart coreg 5. Diabetes mellitus--insulin requiring--start levemir and SSI 6. Anoxic Encephalopathy--stable DVT/VTE Risk/Contraindication: Risk Factor Score Per Nursin RFS Level Per Nursing on Admit: 4+=Very High MIRELA LYLE DO Jul 29, 2018 17:57
[2018-07-29] MEDS ORDERED: VANCOMYCIN 1 GM/NS 250 ML IVPB IV SCH ×2 (20:00)
[2018-07-29] MEDS: CARVEDILOL 12.5 MG (COREG) TABLET PO SCH (21:14)
[2018-07-29] MEDS: LIDOCAINE PATCH REMOVAL TP SCH (21:15)
[2018-07-29] MEDS ORDERED: WATER (STERILE) FOR INJECTION 20 ML ONE (23:00)
[2018-07-29] MEDS ORDERED: CEFEPIME 2 GM (MAXIPIME) VIAL ONE (23:00)
[2018-07-29] MEDS: CEFEPIME 2,000 MG/SWFI 20 ML IV PUSH IV SCH ×2 (23:11)
[2018-07-30] MEDS: RT-ALBUTEROL/IPRATROPIUM 3 ML (DUONEB) VIAL INH SCH ×4 (03:09→22:21)
[2018-07-30] MEDS: fentaNYL INJECTION 100 MCG/2 ML AMP IVP PRN (03:59)
[2018-07-30 04:39] VITALS: BP 164/95
[2018-07-30] MEDS: inSUlin ASPART (NovoLOG) 1 UNIT/0.01 ML (CHARGE PER UNIT) SC SCH ×7 (05:35→21:35)
[2018-07-30] MEDS: LIDOCAINE 4% (SALONPAS) PATCH TOP SCH (06:25)
[2018-07-30 07:58] LABS: BASOPHILS % (AUTO) 0 % (0-10); EOSINOPHILS # (AUTO) 0.1 10^3/uL (0.0-0.3); EOSINOPHILS % (AUTO) 1 % (0-10); HEMATOCRIT 27 % (35-52); HEMOGLOBIN 8.9 G/DL (11.5-16.0); LYMPHOCYTES # (AUTO) 2.1 X 10^3 (1.0-4.0); LYMPHOCYTES % (AUTO) 20 % (12-44); MEAN CORPUSCULAR HEMOGLOBIN 29 PG (25-34); MEAN CORPUSCULAR HGB CONC 33 G/DL (32-36); MEAN CORPUSCULAR VOLUME 89 FL (80-99); MEAN PLATELET VOLUME 9.6 FL (7.4-10.4); MONOCYTES # (AUTO) 0.7 X 10^3 (0.0-1.0); MONOCYTES % (AUTO) 7 % (0-12); NEUTROPHILS # (AUTO) 7.6 X 10^3 (1.8-7.8); NEUTROPHILS % (AUTO) 72 % (42-75); PLATELET COUNT 571 10^3/uL (130-400); RED CELL DISTRIBUTION WIDTH 14.4 % (10.0-14.5); WHITE BLOOD COUNT 10.5 10^3/uL (4.3-11.0)
[2018-07-30 08:08] VITALS: BP 192/98
[2018-07-30 08:18] LABS: CALCIUM 8.4 MG/DL (8.5-10.1); CREATININE SERUM 1.63 MG/DL (0.60-1.30); MAGNESIUM 2.2 MG/DL (1.8-2.4); PHOSPHORUS 5.6 MG/DL (2.3-4.7); POTASSIUM 5.4 MMOL/L (3.6-5.0)
[2018-07-30] MEDS: VITAMIN D3 5,000 UNITS (CHOLECALCIFEROL ) CAPSULE PO SCH (08:37)
[2018-07-30] MEDS: DULoxetine 30 MG (CYMBALTA) CAP PO SCH ×2 (08:37→21:18)
[2018-07-30] MEDS: CARVEDILOL 12.5 MG (COREG) TABLET PO SCH ×2 (08:38→21:17)
[2018-07-30] MEDS: ACETAMINOPHEN 325 MG TABLET PO SCH ×4 (08:38→21:18)
[2018-07-30] MEDS: PANTOPRAZOLE 40 MG (PROTONIX) TAB PO SCH (08:38)
--- NOTE | 2018-07-30 09:52 | Pulmonary Progress Note ---
Subjective Time Seen by a Provider: 11:11 Subjective/Events-last exam CXR shows improvement. Pt still complains of SOB. Sepsis Event Evaluation Height, Weight, BMI Height: 5'2.00" Weight: 199lbs. 4.0oz. 90.166258zt; 35.9 BMI Method:Stated Exam Exam Vital Signs Date Time Temp Pulse Resp B/P (MAP) Pulse Ox O2 Delivery O2 Flow Rate FiO2 07/30/18 08:38 89 Room Air 07/30/18 08:08 97.8 78 22 192/98 (129) 91 Room Air 07/30/18 04:39 97.4 69 16 164/95 (118) 93 Room Air 07/30/18 03:11 96 Room Air 07/29/18 23:57 97.0 58 18 120/78 (92) 96 Room Air 07/29/18 21:00 96 Room Air 07/29/18 20:59 97.6 60 18 158/83 (108) 96 Room Air 07/29/18 20:20 92 Room Air 07/29/18 16:00 98.4 75 22 157/79 (105) 94 Room Air 07/29/18 15:29 92 Room Air 07/29/18 12:00 98.0 71 18 159/93 (115) 92 Room Air 07/29/18 10:53 91 Room Air I & O 07/30/18 07:00 Intake Total 2246 ml Output Total 20 ml Balance 2226 ml Height & Weight Height: 5'2.00" Weight: 199lbs. 4.0oz. 90.469195nk; 35.9 BMI Method:Stated General Appearance: Mild Distress (tearful) HEENT: Normal ENT Inspection Neck: Supple Respiratory: Lungs Clear, Decreased Breath Sounds, Other (chest tubes in place bilaterally with minimal serous drainage in bags) Cardiovascular: Regular Rate, Rhythm Capillary Refill: Less Than 3 Seconds Gastrointestinal: normal bowel sounds, non tender, soft Extremity: Non Tender, No Calf Tenderness, No Pedal Edema Neurologic/Psychiatric: Alert, Oriented x3 Skin: Warm/Dry Results Lab Laboratory Tests 07/29/18 03:41 07/30/18 07:50 Assessment/Plan Assessment/Plan Acute bilateral pneumonia -Maxipime vancomycin -Douglas cultures neg thus far Pulmonary edema with exudative pleural effusions bilaterally. -S/P bilateral Chest tubes -Chest tube total output for last 24 hours left 30cc and right 50cc - will d/c chest tubes -Repeat CXR pending -Hold Lovenox Hypomag, hypokalemia -Replace Hx of Anoxic encephalopathy Influenza A -Tamiflu DM Total time spent with patient Re Chest tubes and pulling chest tubes out is 60min. WHITNEY BEASLEY DO Jul 30, 2018 09:52
[2018-07-30] MEDS: inSUlin DETERMIR 1 UNIT/0.01 ML (LEVEMIR) CHARGE PER UNIT SQ SCH ×2 (10:44→21:35)
--- NOTE | 2018-07-30 10:45 | Diagnostic Imaging Report ---
INDICATION: Respiratory distress COMPARISON: 07/29 FINDINGS: Chest tubes are present bilaterally. No substantial residual pleural fluid. There is improvements in hilar fullness, vascular congestion and perihilar edema. IMPRESSION: No pneumothorax. No adverse development. No significant pleural fluid volume, improvements in perihilar opacities with no new finding. Dictated by: Dictated on workstation # [id number]
[2018-07-30] MEDS: morphine INJ 4 MG/ML 1 ML (VIAL/SYRINGE) IVP PRN (10:56)
--- NOTE | 2018-07-30 11:10 | NUR ---
1030 Dr. Ceja to floor at this time. 1040 Dr. Ceja dc chest tubes at this time.
--- NOTE | 2018-07-30 11:14 | NUR ---
Prior to AM medications BP 192/98 P79.
--- NOTE | 2018-07-30 11:53 | Physical Therapy Daily Note ---
PT Daily Note-Current Subjective Pt sitting up in bed upon arrival. Pt agrees to Supine Ex only due to fatigue and discomfort. Mental Status Patient Orientation: Person, Place Transfers Therapy Code Descriptions/Definitions Functional [place] Measure: 0=Not Assessed/NA 4=Minimal Assistance 1=Total Assistance 5=Supervision or Setup 2=Maximal Assistance 6=Modified [place] 3=Moderate Assistance 7=Complete [place] Therapy Quality Codes: 6 Independent with activity with or without an assistive device 5 Patient requires set up or clean up by helper. Patient completes activity by themselves 4 Supervision or touching assist (CGA). [place] provide cues , steadying assist 3 The helper provides less than half the effort to complete the activity 2 The helper provides more than half the effort to complete the activity 1 Dependent. The helper does all the effort to complete an activity 7 Patient refused to complete or attempt activity 9 The patient did not perform the activity before the current illness or injury 88 Not attempted due to Medical conditions or safety concerns Weight Bearing Right Lower Extremity: Right Full Weight Bearing Left Lower Extremity: Left Full Weight Bearing Exercises Supine Ex: Ankle pumps, Quad Set, Heel Slides, Straight leg raise, Hip abd/add Supine Reps: 10 Treatments Pt completes Supine Ex with VC for redirection of activity. Pt at times has difficulty following directions and teary. Assessment Current Status: Fair Progress Pt demonstrates difficulty following directions at times. PT Short Term Goals Short Term Goals Time Frame: Aug 05, 2018 Transfers (B,C,W/C) (FIM): 5 Gait (FIM): 2 Distance (FIM): 6=740-02 ft Gait Distance Comment: 50' Gait Level of Assist: 5 Gait Assistive Device: None PT Plan Problem List Problem List: Activity Tolerance, Functional Strength, Safety Treatment/Plan Treatment Plan: Continue Plan of Care Treatment Plan: Bed Mobility, Education, Functional Activity Carlos, Functional Strength, Gait, Safety, Therapeutic Exercise, Transfers Treatment Duration: Aug 05, 2018 Frequency: 6 times per week Estimated Hrs Per Day: .25 hour per day (15-30') Patient and/or Family Agrees t: Yes Safety Risks/Education Patient Education: Correct Positioning, Safety Issues Teaching Recipient: Patient Teaching Methods: Discussion Response to Teaching: Reinforcement Needed Time/GCodes Time In: 1135 Time Out: 1147 Total Billed Treatment Time: 12 Total Billed Treatment 1, EX (12m) G Codes Necessary: DAKOTAH Gustafson MANAGER USER INTERFACE Jul 30, 2018 11:53
[2018-07-30 12:14] VITALS: BP 159/93
[2018-07-30 15:45] VITALS: BP 179/92
--- NOTE | 2018-07-30 15:45 | NUR ---
Abi, PICC line RN here to attempt to access a midline, after 2 attempts with no success she tried to obtain a peripheral IV acces with NO success.
[2018-07-30 20:55] VITALS: BP 174/88
[2018-07-30] MEDS: CEFDINIR 300 MG (OMNICEF) CAP PO SCH (21:17)
[2018-07-30] MEDS: LIDOCAINE PATCH REMOVAL TP SCH (21:35)
--- NOTE | 2018-07-30 21:51 | Progress Note (SOAP) ---
Subjective Date Seen by a Provider: Jul 30, 2018 Time Seen by a Provider: 12:35 Subjective/Events-last exam Fwup pneumonia with pleural effusions, hypoxia, influenza A, COPD, uncontrolled DM--insulin requiring, HTN, anoxic encephalopathy. Bilateral chest tubes pulled. C/O low back pain. Not eating well. Objective Exam Vital Signs Date Time Temp Pulse Resp B/P (MAP) Pulse Ox O2 Delivery O2 Flow Rate FiO2 07/30/18 15:45 97.4 70 16 179/92 (121) 96 Room Air 07/30/18 14:30 94 Room Air 07/30/18 12:14 97.8 70 22 159/93 (115) 95 Room Air 07/30/18 08:38 89 Room Air 07/30/18 08:08 97.8 78 22 192/98 (129) 91 Room Air 07/30/18 04:39 97.4 69 16 164/95 (118) 93 Room Air 07/30/18 03:11 96 Room Air 07/29/18 23:57 97.0 58 18 120/78 (92) 96 Room Air I & O 07/30/18 07:00 Intake Total 2642.25 ml Output Total 20 ml Balance 2622.25 ml Capillary Refill : Less Than 3 SecondsLess Than 3 Seconds General Appearance: No Apparent Distress Neck: Supple Respiratory: Lungs Clear Cardiovascular: Regular Rate, Rhythm Gastrointestinal: normal bowel sounds, non tender, soft Extremity: Non Tender, No Calf Tenderness, No Pedal Edema Neurologic/Psychiatric: Alert, Oriented x3 Skin: Warm/Dry Results Lab Laboratory Tests 07/29/18 23:55: Glucometer 93 07/30/18 02:06: Glucometer 118H 07/30/18 05:21: Glucometer 105 07/30/18 07:50: White Blood Count 10.5, Red Blood Count 3.06L, Hemoglobin 8.9L, Hematocrit 27L, Mean Corpuscular Volume 89, Mean Corpuscular Hemoglobin 29, Mean Corpuscular Hemoglobin Concent 33, Red Cell Distribution Width 14.4, Platelet Count 571H, Mean Platelet Volume 9.6, Neutrophils (%) (Auto) 72, Lymphocytes (%) (Auto) 20, Monocytes (%) (Auto) 7, Eosinophils (%) (Auto) 1, Basophils (%) (Auto) 0, Neutrophils # (Auto) 7.6, Lymphocytes # (Auto) 2.1, Monocytes # (Auto) 0.7, Eosinophils # (Auto) 0.1, Basophils # (Auto) 0.0, Sodium Level 130L, Potassium Level 5.4H, Chloride Level 102, Carbon Dioxide Level 19L, Anion Gap 9, Blood Urea Nitrogen 35H, Creatinine 1.63H, Estimat Glomerular Filtration Rate 33, BUN/ Creatinine Ratio 21, Glucose Level 87, Calcium Level 8.4L, Phosphorus Level 5.6H , Magnesium Level 2.2 07/30/18 11:48: Glucometer 190H 07/30/18 15:48: Glucometer 124H 07/30/18 21:00: Glucometer 202H Microbiology 07/23/18 Blood Culture - Final, Complete No growth 07/27/18 Gram Stain - Final, Complete 07/27/18 Body Fluid Culture - Final, Complete No growth 07/26/18 MRSA Screen - Final, Complete MRSA not isolated 07/23/18 Urine Culture - Final, Complete NO GROWTH Assessment/Plan Assessment/Plan Assess & Plan/Chief Complaint 1. Acute Bilateral Pneumonia with Bilateral Pleural Effusions--bilateral chest tubes pulled 2. Hypoxia--oxygen sats stable on NC 3. COPD--stable 4. Influenza A--treated 5. Hypertension--increased coreg dose 6. Diabetes mellitus--insulin requiring--on levemir with SSI 7. Back Pain--on lidocaine patches and dose tylenol routinely with tramadol 8. Anemia--Hgb up slightly after IV iron infusion Clinical Quality Measures Admission Status Admission Dx 1. Acute Bilateral Pneumonia--cover with maxipime due to recent hospital stay 2. Acute Hypoxia--on oxygen and SVNs 3. Influenza A--on tamiflu 4. Hypertension--restart coreg 5. Diabetes mellitus--insulin requiring--start levemir and SSI 6. Anoxic Encephalopathy--stable DVT/VTE Risk/Contraindication: Risk Factor Score Per Nursin RFS Level Per Nursing on Admit: 4+=Very High MIRELA LYLE DO Jul 30, 2018 21:51
[2018-07-30 23:55] VITALS: BP 171/77
[2018-07-31] MEDS: RT-ALBUTEROL/IPRATROPIUM 3 ML (DUONEB) VIAL INH SCH ×2 (03:28→09:58)
[2018-07-31 03:46] VITALS: BP 164/84
[2018-07-31 05:02] LABS: BASOPHILS % (AUTO) 0 % (0-10); EOSINOPHILS # (AUTO) 0.1 10^3/uL (0.0-0.3); EOSINOPHILS % (AUTO) 1 % (0-10); HEMATOCRIT 27 % (35-52); HEMOGLOBIN 8.7 G/DL (11.5-16.0); LYMPHOCYTES # (AUTO) 2.2 X 10^3 (1.0-4.0); LYMPHOCYTES % (AUTO) 24 % (12-44); MEAN CORPUSCULAR HEMOGLOBIN 29 PG (25-34); MEAN CORPUSCULAR HGB CONC 32 G/DL (32-36); MEAN CORPUSCULAR VOLUME 88 FL (80-99); MEAN PLATELET VOLUME 9.9 FL (7.4-10.4); MONOCYTES # (AUTO) 0.6 X 10^3 (0.0-1.0); MONOCYTES % (AUTO) 7 % (0-12); NEUTROPHILS # (AUTO) 6.3 X 10^3 (1.8-7.8); NEUTROPHILS % (AUTO) 69 % (42-75); PLATELET COUNT 544 10^3/uL (130-400); RED CELL DISTRIBUTION WIDTH 14.2 % (10.0-14.5); WHITE BLOOD COUNT 9.1 10^3/uL (4.3-11.0)
[2018-07-31 05:24] LABS: CALCIUM 8.5 MG/DL (8.5-10.1); CREATININE SERUM 1.92 MG/DL (0.60-1.30); MAGNESIUM 2.3 MG/DL (1.8-2.4); POTASSIUM 5.6 MMOL/L (3.6-5.0)
[2018-07-31] MEDS: inSUlin ASPART (NovoLOG) 1 UNIT/0.01 ML (CHARGE PER UNIT) SC SCH ×5 (05:26→20:31)
--- NOTE | 2018-07-31 07:15 | Pulmonary Progress Note ---
Subjective Time Seen by a Provider: 07:12 Subjective/Events-last exam Chest tubes are d/c'd. Pt is on RA oxygen. Sepsis Event Evaluation Height, Weight, BMI Height: 5'2.00" Weight: 198lbs. 2.0oz. 89.776797jj; 35.9 BMI Method:Stated Exam Exam Vital Signs Date Time Temp Pulse Resp B/P (MAP) Pulse Ox O2 Delivery O2 Flow Rate FiO2 07/31/18 03:46 97.7 73 20 164/84 (110) 95 Room Air 07/31/18 03:29 94 Room Air 07/30/18 23:55 97.4 69 18 171/77 (108) 96 Room Air 07/30/18 22:21 96 Room Air 07/30/18 21:00 96 Room Air 07/30/18 20:55 98.1 75 20 174/88 (116) 94 Room Air 07/30/18 15:45 97.4 70 16 179/92 (121) 96 Room Air 07/30/18 14:30 94 Room Air 07/30/18 12:14 97.8 70 22 159/93 (115) 95 Room Air 07/30/18 08:38 89 Room Air 07/30/18 08:08 97.8 78 22 192/98 (129) 91 Room Air I & O 07/31/18 07:00 Intake Total 882 ml Balance 882 ml Height & Weight Height: 5'2.00" Weight: 198lbs. 2.0oz. 89.053717vu; 35.9 BMI Method:Stated General Appearance: No Apparent Distress HEENT: Normal ENT Inspection Neck: Supple Respiratory: Lungs Clear Cardiovascular: Regular Rate, Rhythm Capillary Refill: Less Than 3 Seconds Gastrointestinal: normal bowel sounds, non tender, soft Extremity: Non Tender, No Calf Tenderness, No Pedal Edema Neurologic/Psychiatric: Alert, Oriented x3 Skin: Warm/Dry Results Lab Laboratory Tests 07/30/18 07:50 07/31/18 04:35 Assessment/Plan Assessment/Plan Acute bilateral pneumonia -Maxipime -Douglas cultures neg thus far Pulmonary edema with exudative pleural effusions bilaterally. -S/P bilateral Chest tubes- are d/c'd -Repeat CXR pending Hx of Anoxic encephalopathy Influenza A -Tamiflu WHITNEY HOLLOWAY DO Jul 31, 2018 07:15
[2018-07-31 08:00] VITALS: BP 138/76
[2018-07-31] MEDS: CARVEDILOL 12.5 MG (COREG) TABLET PO SCH ×2 (08:43→20:18)
[2018-07-31] MEDS: CEFDINIR 300 MG (OMNICEF) CAP PO SCH ×2 (08:43→20:18)
[2018-07-31] MEDS: DULoxetine 30 MG (CYMBALTA) CAP PO SCH ×2 (08:43→20:18)
[2018-07-31] MEDS: PANTOPRAZOLE 40 MG (PROTONIX) TAB PO SCH (08:44)
[2018-07-31] MEDS: LIDOCAINE 4% (SALONPAS) PATCH TOP SCH (08:44)
--- NOTE | 2018-07-31 08:44 | Diagnostic Imaging Report ---
INDICATION: Followup pneumonia and pleural effusions. TIME OF EXAM: 08:27 a.m. Correlation is made with prior study one day earlier. Heart size is stable. Infiltrates left perihilar region have significantly improved. Continues to be infiltrate in the right perihilar region, similar to perhaps mildly improved. Small effusions bilaterally appear stable. Bilateral pigtail drains have been removed. There is no pneumothorax identified. IMPRESSION: Improving bilateral infiltrates when compared with examination one day earlier. Dictated by: Dictated on workstation # [id number]
[2018-07-31] MEDS: VITAMIN D3 5,000 UNITS (CHOLECALCIFEROL ) CAPSULE PO SCH (08:52)
[2018-07-31] MEDS: ACETAMINOPHEN 325 MG TABLET PO SCH ×4 (08:52→20:18)
--- NOTE | 2018-07-31 09:54 | Physical Therapy Daily Note ---
PT Daily Note-Current Subjective Pt is in bed and agrees to PT reluctantly. Pt does not want to move but PT instructed her in the importance of moving and sitting upright. Pain Numeric Pain Scale: 10-Worst Possible Pain Location Body Site: Back Mental Status Patient Orientation: Person Transfers Therapy Code Descriptions/Definitions Functional [place] Measure: 0=Not Assessed/NA 4=Minimal Assistance 1=Total Assistance 5=Supervision or Setup 2=Maximal Assistance 6=Modified [place] 3=Moderate Assistance 7=Complete [place] Therapy Quality Codes: 6 Independent with activity with or without an assistive device 5 Patient requires set up or clean up by helper. Patient completes activity by themselves 4 Supervision or touching assist (CGA). [place] provide cues , steadying assist 3 The helper provides less than half the effort to complete the activity 2 The helper provides more than half the effort to complete the activity 1 Dependent. The helper does all the effort to complete an activity 7 Patient refused to complete or attempt activity 9 The patient did not perform the activity before the current illness or injury 88 Not attempted due to Medical conditions or safety concerns Transfers (B, C, W/C) (FIM): 5 Scootin Rollin Supine to/from Sit: 5 Sit to/from Stand: 5 Weight Bearing Right Lower Extremity: Right Full Weight Bearing Left Lower Extremity: Left Full Weight Bearing Gait Training Gait (FIM): 1 Distance (FIM): 1=up to 49 ft Distance: 20' Gait Level of Assist: 5 Gait Persons Needed: 1 Gait Assistive Device: None Exercises Seated Therapy Exercises: Ankle pumps, Hip flexion Seated Reps: 5 Assessment Current Status: Fair Progress Pt is SBA with all bed mobility and transfers. Pt required increased time to perform all activities due to pain. Pt self limits due to pain. Pt refused to walk any more than to her chair in her room. Pt performed 5 reps of seated LE ex and would not perform more due to pain. Pt is in recliner with all needs met and nurse and certified nursing assistant are in room. PT Short Term Goals Short Term Goals Time Frame: Aug 05, 2018 Transfers (B,C,W/C) (FIM): 5 Gait (FIM): 2 Distance (FIM): 8=110-98 ft Gait Distance Comment: 50' Gait Level of Assist: 5 Gait Assistive Device: None PT Plan Problem List Problem List: Activity Tolerance, Functional Strength, Safety, Balance, Gait, Transfer, Bed Mobility, ROM Treatment/Plan Treatment Plan: Continue Plan of Care Treatment Plan: Bed Mobility, Education, Functional Activity Carlos, Functional Strength, Gait, Safety, Therapeutic Exercise, Transfers Treatment Duration: Aug 05, 2018 Frequency: 6 times per week Estimated Hrs Per Day: .25 hour per day (15-30') Patient and/or Family Agrees t: Yes Time/GCodes Time In: 836 Time Out: 846 Total Billed Treatment Time: 10 Total Billed Treatment 1 visit FA 10 min LISA NARANJO PT Jul 31, 2018 09:54
--- NOTE | 2018-07-31 10:26 | Progress Note (SOAP) ---
Subjective Date Seen by a Provider: Jul 31, 2018 Time Seen by a Provider: 10:22 Subjective/Events-last exam Fwup pneumonia with pleural effusions, hypoxia, influenza A, COPD, uncontrolled DM--insulin requiring, HTN, anoxic encephalopathy. Sitting up in chair sleeping. Poor oral intake. No IV acess as unable to get peripheral or midline. Objective Exam Vital Signs Date Time Temp Pulse Resp B/P (MAP) Pulse Ox O2 Delivery O2 Flow Rate FiO2 07/31/18 10:03 63 96 21 07/31/18 09:59 96 Room Air 07/31/18 08:00 97.4 73 20 138/76 (96) 95 Room Air 07/31/18 03:46 97.7 73 20 164/84 (110) 95 Room Air 07/31/18 03:29 94 Room Air 07/30/18 23:55 97.4 69 18 171/77 (108) 96 Room Air 07/30/18 22:21 96 Room Air 07/30/18 21:00 96 Room Air 07/30/18 20:55 98.1 75 20 174/88 (116) 94 Room Air 07/30/18 15:45 97.4 70 16 179/92 (121) 96 Room Air 07/30/18 14:30 94 Room Air 07/30/18 12:14 97.8 70 22 159/93 (115) 95 Room Air I & O 07/31/18 07:00 Intake Total 882 ml Balance 882 ml Capillary Refill : Less Than 3 SecondsLess Than 3 Seconds General Appearance: Mild Distress Neck: Supple Respiratory: Lungs Clear, Decreased Breath Sounds Cardiovascular: Regular Rate, Rhythm Gastrointestinal: normal bowel sounds, non tender, soft Extremity: Non Tender, No Calf Tenderness, No Pedal Edema Neurologic/Psychiatric: Alert Skin: Warm/Dry Results Lab Laboratory Tests 07/30/18 11:48: Glucometer 190H 07/30/18 15:48: Glucometer 124H 07/30/18 21:00: Glucometer 202H 07/31/18 01:28: Glucometer 144H 07/31/18 04:35: White Blood Count 9.1, Red Blood Count 3.05L, Hemoglobin 8.7L, Hematocrit 27L, Mean Corpuscular Volume 88, Mean Corpuscular Hemoglobin 29, Mean Corpuscular Hemoglobin Concent 32, Red Cell Distribution Width 14.2, Platelet Count 544H, Mean Platelet Volume 9.9, Neutrophils (%) (Auto) 69, Lymphocytes (%) (Auto) 24, Monocytes (%) (Auto) 7, Eosinophils (%) (Auto) 1, Basophils (%) (Auto) 0, Neutrophils # (Auto) 6.3, Lymphocytes # (Auto) 2.2, Monocytes # (Auto) 0.6, Eosinophils # (Auto) 0.1, Basophils # (Auto) 0.0, Sodium Level 130L, Potassium Level 5.6H, Chloride Level 101, Carbon Dioxide Level 20L, Anion Gap 9, Blood Urea Nitrogen 45H, Creatinine 1.92H, Estimat Glomerular Filtration Rate 28, BUN/ Creatinine Ratio 23, Glucose Level 114H, Calcium Level 8.5, Phosphorus Level 6.0H, Magnesium Level 2.3 Microbiology 07/23/18 Blood Culture - Final, Complete No growth 07/27/18 Gram Stain - Final, Complete 07/27/18 Body Fluid Culture - Final, Complete No growth 07/26/18 MRSA Screen - Final, Complete MRSA not isolated 07/23/18 Urine Culture - Final, Complete NO GROWTH Assessment/Plan Assessment/Plan Assess & Plan/Chief Complaint 1. Acute Bilateral Pneumonia with Bilateral Pleural Effusions--bilateral chest tubes pulled yesterday 2. Hypoxia--oxygen sats stable on NC 3. COPD--stable 4. Influenza A--treated 5. Hypertension--increase coreg dose again 6. Diabetes mellitus--insulin requiring--decrease levemir dose due to poor oral intake 7. Back Pain--on lidocaine patches and dose tylenol routinely with tramadol 8. Anemia--Hgb up slightly after IV iron infusion 9. Acute on Chronic Renal Insufficiency--suspect dehydration so need IV access to start IVFs Clinical Quality Measures Admission Status Admission Dx 1. Acute Bilateral Pneumonia--cover with maxipime due to recent hospital stay 2. Acute Hypoxia--on oxygen and SVNs 3. Influenza A--on tamiflu 4. Hypertension--restart coreg 5. Diabetes mellitus--insulin requiring--start levemir and SSI 6. Anoxic Encephalopathy--stable DVT/VTE Risk/Contraindication: Risk Factor Score Per Nursin RFS Level Per Nursing on Admit: 4+=Very High MIRELA LYLE DO Jul 31, 2018 10:26
[2018-07-31 12:00] VITALS: BP 149/81
--- NOTE | 2018-07-31 15:48 | NUR ---
Follow up visit: pt said she had the flu and felt nauseous, then requested that her tray of food be removed from the room so she did not have to smell it. pt said she had not been able to eat or drink anything due to nausea. I confirmed with the nurse, Graciela, that pt did not have the flu and then revisited to tell the pt.
[2018-07-31 15:50] VITALS: BP 193/90
[2018-07-31] MEDS: D5 1/2 NS 1000 ML IV SOLUTION 1,000 ML IV SCH ×2 (16:27→20:21)
[2018-07-31] MEDS ORDERED: BUP/EPI 0.5% 1:200,000 (SENSORCAINE) 30 ML VIAL ONE (17:30)
[2018-07-31] MEDS ORDERED: HEParin (CENTRAL IV FLUSH) 500 UNIT/5 ML SYR ONE (17:30)
[2018-07-31] MEDS ORDERED: 0.9% SODIUM CHLORIDE PF INJ 20 ML VIAL ONE (17:30)
[2018-07-31] MEDS ORDERED: proPOfol 200 MG/20 ML (DIPRIVAN) VIAL IV ONE (17:35)
[2018-07-31] MEDS ORDERED: LIDOCAINE PF 2% 5 ML (XYLOCAINE) VIAL ONE (17:35)
[2018-07-31] MEDS ORDERED: fentaNYL INJECTION 100 MCG/2 ML AMP ONE (17:35)
[2018-07-31] MEDS ORDERED: ONDANSETRON 4 MG/2 ML (SDV) Z0FRAN ONE (17:35)
[2018-07-31] MEDS ORDERED: MIDAZOLAM 2 MG/2 ML (VERSED) VIAL ONE (17:35)
[2018-07-31] MEDS ORDERED: ceFAZolin INJECTION 2,000 MG ONE (18:42)
[2018-07-31] MEDS ORDERED: TROUGH ORDER-PHARMACY XX NR (19:00)
--- NOTE | 2018-07-31 19:32 | Diagnostic Imaging Report ---
INDICATION: Port-A-Cath placement. TOTAL FLUOROSCOPY TIME: One minute and 8 seconds TOTAL LUMBAR FLUOROSCOPIC IMAGES SAVED: One. FINDINGS: Single intraoperative image intensifier view of the chest was obtained and demonstrates bilateral internal jugular central venous catheters. Tip of catheter on the right appears to terminate in the SVC. Evaluation for pneumothorax is suboptimal given fluoroscopic modality. Please note, interpreting radiologist was not present during the procedure. IMPRESSION: 1. Fluoroscopic guidance provided during Port-A-Cath placement as described above. Dictated by: Dictated on workstation # [id number]
--- NOTE | 2018-07-31 19:37 | Operative Report ---
Operative Report Date of Procedure/Surgery Jul 31, 2018 Surgeon (s) RASHMI OLSON MD Detention Officer (s): n/a Post-Operative Diagnosis poor venous access Procedure Performed central venous catheter placement left internal jugular vein Mfngys-h-Laer placement of right internal jugular vein Description of Procedure Anesthesia Type: MAC Estimated blood loss (mL): minimal Specimen(s) collected/removed none Description of the Procedure Indication for the procedures: This lady is recovering from pneumonia, complicated by renal insufficiency. Due to poor venous access, I was asked to place an Qzfhdl-p-Jbqv. Since no venous access was available, achieving a temporary central venous access for administering anesthetic drugs and prophylactic antibiotics was imperative. Informed consent was obtained after reviewing the procedures in detail. Description of the procedures: 1. Central venous catheter/left internal jugular vein: She was placed in Trendelenburg position and her own hospital bed and the left side of the neck prepared and draped in the usual sterile manner. Local anesthesia was achieved using 1 percent lidocaine. Left internal jugular vein was localized using a 12 MHz ultrasound probe and a floppy guidewire introduced into the heart. The subcutaneous tract was gently dilated using a silastic sheath and a 20 cm long, 7 Burmese, triple lumens central venous catheter advanced using Seldinger technique. All the channels were aspirated and heparinized saline. The catheter was then secured using a silk suture and a dressing applied. Our [employer] was subsequently able to administer medications including 2 g of Ancef for prophylaxis against infection. 2. Obaxsu-j-Mntx placement: Her neck and upper chest were prepared and draped in the usual sterile manner. Right internal jugular vein was accessed using the same ultrasound probe and a floppy guidewire introduced into the heart, under fluoroscopy. A subcutaneous pocket was created over the infraclavicular fossa and the Juan catheter brought into the neck, in a retrograde fashion. It was then advanced into the heart, under fluoroscopy, using the peel-away sheath. The catheter was then pulled back to the superior vena cava, under fluoroscopy and connected to the Slsjqw-o-Tvkd, that had been primed with heparinized saline. I was able to aspirate and flush the system without any difficulty. The port was then secured to the pectoralis tissue using 2-0 Prolene sutures. Incision was then closed using 3-0 Vicryl for the subcutaneous tissue and 4-0 Vicryl for skin, in a subcuticular fashion. Local anesthesia was achieved using 0.5 percent Marcaine with epinephrine as far as the Yluxed-u-Sdhf placement was concerned. Once the IV infusion was connected to the Sbbzml-m-Qees, the central venous catheter placed over the left internal jugular vein was removed and a dressing applied. She tolerated the procedures well and was taken to the recovery room in a stable condition. Findings of the Procedure See op report Allergies and Home Medications Allergies Coded Allergies: codeine (Verified Allergy, Mild, ITCHING, Pt has received Lortab in the past, 07/02/18) Sulfa (Sulfonamide Antibiotics) (Verified Allergy, Unknown, HIVES, 02/07/18) Home Medications Acetaminophen 650 Mg Tablet.er, 650 MG PO Q6H PRN for PAIN-MILD, (Reported) Albuterol Sulfate 18 Gm Hfa.aer.ad, 2 PUFF INH Q6H PRN for SHORTNESS OF BREATH, (Reported) Carvedilol 3.125 Mg Tablet, 3.125 MG PO BID, (Reported) Cefdinir 300 Mg Capsule, 300 MG PO BID, (Reported) 10 DAY SUPPLY FILLED 07-23-18 Duloxetine HCl 60 Mg Capsule.dr, 60 MG PO HS, (Reported) Fluconazole 100 Mg Tablet, 100 MG PO DAILY, (Reported) 7 DAY SUPPLY FILLED 07-23-18 Insulin Aspart 300 Units/3 Ml Solution, 5 UNITS SC TIDAC, (Reported) Insulin Detemir 100 Unit/1 Ml Insuln.pen, 25 UNITS SC HS, (Reported) Pregabalin 100 Mg Capsule, 100 MG PO HS, (Reported) Patient Home Medication List Home Medication List Reviewed: Yes RASHMI OLSON MD Jul 31, 2018 19:37
--- NOTE | 2018-07-31 19:38 | Progress Note-Pre Operative ---
Pre-Operative Progress Note H&P Reviewed The H&P was reviewed, patient examined and no changes noted. Date Seen by Provider: Jul 31, 2018 Time Seen by Provider: 14:00 Date H&P Reviewed: Jul 27, 2018 Time H&P Reviewed: 10:00 Pre-Operative Diagnosis: poor venous access RASHMI OLSON MD Jul 31, 2018 19:38
--- NOTE | 2018-07-31 19:41 | Progress Note-Standard ---
Standard Progress Note Progress Notes/Assess & Plan Date Seen by a Provider: Jul 31, 2018 Time Seen by a Provider: 14:00 Progress/Assessment & Plan Asked by Dr. LYLE to address poor venous access on this lady, recovering from pneumonia and renal insufficiency. Several attempts to achieve peripheral venous access including ultrasound-guided placement of a PICC line had been futile. Therefore, I've offered placing a temporary central venous catheter over the left internal jugular vein to allow the anesthesiologist to administer medications and intravenous antibiotics for prophylaxis against wound infection. Immediately, placing a longer term access by way of an Infuse-a- Port on the right side would also be reasonable. I've discussed the procedures with her and she is in agreement to proceed. Final Diagnosis pneumonia. Renal insufficiency. Poor venous access RASHMI OLSON MD Jul 31, 2018 19:41
[2018-07-31] MEDS ORDERED: ONDANSETRON 4 MG/2 ML (SDV) Z0FRAN IVP PRN (19:45)
[2018-07-31] MEDS ORDERED: morphine INJ 10 MG/ML 1ML (SYR OR VIAL) IVP ONE (19:45)
--- NOTE | 2018-07-31 20:10 | NUR ---
PT RETURNED TO FLOOR.
[2018-07-31 20:12] VITALS: BP 197/93
[2018-07-31] MEDS: inSUlin DETERMIR 1 UNIT/0.01 ML (LEVEMIR) CHARGE PER UNIT SQ SCH (20:31)
[2018-07-31] MEDS: LIDOCAINE PATCH REMOVAL TP SCH (20:32)
--- NOTE | 2018-07-31 22:00 | NUR ---
PT AWAKE AND TALKING TO THIS RN AT THIS TIME. PT REPORTS FEELING SLEEPY. PT APPEARS FATIGUED. OXYGEN SATURATION 97% ON 4 L NC. WILL CONTINUE TO MONITOR. Addendum: 07/31/18 at 2202 by FARIDA ANDREA RN DISREGARD PREVIOUS NOTE.
[2018-07-31 23:30] VITALS: BP 148/70
[2018-08-01 03:50] VITALS: BP 162/86
[2018-08-01 05:29] LABS: BASOPHILS % (AUTO) 0 % (0-10); EOSINOPHILS % (AUTO) 0 % (0-10); HEMATOCRIT 25 % (35-52); HEMOGLOBIN 7.9 G/DL (11.5-16.0); LYMPHOCYTES # (AUTO) 1.7 X 10^3 (1.0-4.0); LYMPHOCYTES % (AUTO) 15 % (12-44); MEAN CORPUSCULAR HEMOGLOBIN 29 PG (25-34); MEAN CORPUSCULAR HGB CONC 32 G/DL (32-36); MEAN CORPUSCULAR VOLUME 89 FL (80-99); MEAN PLATELET VOLUME 9.4 FL (7.4-10.4); MONOCYTES # (AUTO) 0.7 X 10^3 (0.0-1.0); MONOCYTES % (AUTO) 7 % (0-12); NEUTROPHILS # (AUTO) 8.4 X 10^3 (1.8-7.8); NEUTROPHILS % (AUTO) 77 % (42-75); PLATELET COUNT 511 10^3/uL (130-400); RED CELL DISTRIBUTION WIDTH 14.3 % (10.0-14.5); WHITE BLOOD COUNT 10.8 10^3/uL (4.3-11.0)
[2018-08-01 05:54] LABS: CALCIUM 8.2 MG/DL (8.5-10.1); CREATININE SERUM 1.95 MG/DL (0.60-1.30); MAGNESIUM 2.3 MG/DL (1.8-2.4); POTASSIUM 5.5 MMOL/L (3.6-5.0)
[2018-08-01] MEDS: inSUlin ASPART (NovoLOG) 1 UNIT/0.01 ML (CHARGE PER UNIT) SC SCH ×4 (06:09→20:39)
[2018-08-01] MEDS: D5 1/2 NS 1000 ML IV SOLUTION 1,000 ML IV SCH ×2 (06:29→16:27)
--- NOTE | 2018-08-01 07:47 | Pulmonary Progress Note ---
Subjective Time Seen by a Provider: 07:47 Subjective/Events-last exam Pt appears to be doing better. Sepsis Event Evaluation Height, Weight, BMI Height: 5'2.00" Weight: 201lbs. 5.0oz. 91.253540nq; 35.9 BMI Method:Stated Exam Exam Vital Signs Date Time Temp Pulse Resp B/P (MAP) Pulse Ox O2 Delivery O2 Flow Rate FiO2 08/01/18 03:50 96.9 52 18 162/86 (111) 97 Room Air 07/31/18 23:30 97.4 58 19 148/70 (96) 96 Room Air 07/31/18 20:33 94 Room Air 07/31/18 20:12 97.0 70 16 197/93 (127) 94 Room Air 07/31/18 20:10 Room Air 07/31/18 15:50 98.3 73 18 193/90 (124) 96 Room Air 07/31/18 12:00 98.1 68 20 149/81 (103) 96 Room Air 07/31/18 10:03 63 96 21 07/31/18 09:59 96 Room Air 07/31/18 09:00 Room Air 07/31/18 08:00 97.4 73 20 138/76 (96) 95 Room Air I & O 08/01/18 07:00 Intake Total 190 ml Balance 190 ml Height & Weight Height: 5'2.00" Weight: 201lbs. 5.0oz. 91.947214cw; 35.9 BMI Method:Stated General Appearance: No Apparent Distress HEENT: Normal ENT Inspection Neck: Supple Respiratory: Lungs Clear, Decreased Breath Sounds Cardiovascular: Regular Rate, Rhythm Capillary Refill: Less Than 3 Seconds Gastrointestinal: normal bowel sounds, non tender, soft Extremity: Non Tender, No Calf Tenderness, No Pedal Edema Neurologic/Psychiatric: Alert Skin: Warm/Dry Results Lab Laboratory Tests 07/30/18 07:50 07/31/18 04:35 08/01/18 05:15 Assessment/Plan Assessment/Plan Acute bilateral pneumonia -Maxipime -Douglas cultures neg thus far Pulmonary edema with exudative pleural effusions bilaterally. -S/P bilateral Chest tubes- are d/c'd -Repeat CXR pending Hx of Anoxic encephalopathy Influenza A -Tamiflu WHITNEY HOLLOWAY DO Aug 01, 2018 07:47
[2018-08-01 08:00] VITALS: BP 176/69
[2018-08-01] MEDS: RT-ALBUTEROL/IPRATROPIUM 3 ML (DUONEB) VIAL INH SCH ×2 (08:28→19:25)
[2018-08-01] MEDS: CEFDINIR 300 MG (OMNICEF) CAP PO SCH ×2 (09:31→20:38)
[2018-08-01] MEDS: DULoxetine 30 MG (CYMBALTA) CAP PO SCH ×2 (09:31→20:38)
[2018-08-01] MEDS: CARVEDILOL 12.5 MG (COREG) TABLET PO SCH ×2 (09:31→20:38)
[2018-08-01] MEDS: VITAMIN D3 5,000 UNITS (CHOLECALCIFEROL ) CAPSULE PO SCH (09:32)
[2018-08-01] MEDS: PANTOPRAZOLE 40 MG (PROTONIX) TAB PO SCH (09:32)
[2018-08-01] MEDS: ACETAMINOPHEN 325 MG TABLET PO SCH ×4 (09:32→20:38)
[2018-08-01] MEDS: LIDOCAINE 4% (SALONPAS) PATCH TOP SCH (09:32)
--- NOTE | 2018-08-01 11:56 | Physical Therapy Daily Note ---
PT Daily Note-Current Subjective Pt agreeable to PT session with max encouragement required Pain Numeric Pain Scale: 9 Comment: nursing notified and stated will bring her some pain med Appearance upon arrival, pt supine in bed, awake and alert At end of session, pt refused to sit up in chair, so laid back in bed, pt supine in bed, HOB elevated, call light, phone and bedside table within reach. All needs met at this time, pt waiting on pain med from nsg Mental Status pt showing some signs of difficulty understanding where her room was and becoming argumentative. Also later with getting twisted around in IV tubing, became irritable and argumentative. Transfers Therapy Code Descriptions/Definitions Functional [place] Measure: 0=Not Assessed/NA 4=Minimal Assistance 1=Total Assistance 5=Supervision or Setup 2=Maximal Assistance 6=Modified [place] 3=Moderate Assistance 7=Complete [place] Therapy Quality Codes: 6 Independent with activity with or without an assistive device 5 Patient requires set up or clean up by helper. Patient completes activity by themselves 4 Supervision or touching assist (CGA). [place] provide cues , steadying assist 3 The helper provides less than half the effort to complete the activity 2 The helper provides more than half the effort to complete the activity 1 Dependent. The helper does all the effort to complete an activity 7 Patient refused to complete or attempt activity 9 The patient did not perform the activity before the current illness or injury 88 Not attempted due to Medical conditions or safety concerns Transfers (B, C, W/C) (FIM): 5 Scootin Rollin Supine to/from Sit: 6 Sit to/from Stand: 5 Weight Bearing Right Lower Extremity: Right Full Weight Bearing Left Lower Extremity: Left Full Weight Bearing Gait Training Gait (FIM): 5 Distance (FIM): 3=150 ft Distance: >500' Gait Level of Assist: 5 Gait Persons Needed: 1 Gait Assistive Device: None slight path deviation at times listing to the right. At times reporting pain better with walker, other times worse with walking. Report of fatigue by end of gait distance Treatments bed mobility, gait and transfer training Assessment Current Status: Good Progress PT Short Term Goals Short Term Goals Time Frame: Aug 05, 2018 Transfers (B,C,W/C) (FIM): 5 Gait (FIM): 2 Distance (FIM): 9=930-89 ft Gait Distance Comment: 50' Gait Level of Assist: 5 Gait Assistive Device: None PT Plan Treatment/Plan Treatment Plan: Continue Plan of Care Treatment Plan: Bed Mobility, Education, Functional Activity Carlos, Functional Strength, Gait, Safety, Therapeutic Exercise, Transfers Treatment Duration: Aug 05, 2018 Frequency: 6 times per week Estimated Hrs Per Day: .25 hour per day (15-30') Patient and/or Family Agrees t: Yes Safety Risks/Education Patient Education: Gait Training, Transfer Techniques, Safety Issues Teaching Recipient: Patient Teaching Methods: Discussion Response to Teaching: Verbalize Understanding Time/GCodes Time In: 908 Time Out: 928 Total Billed Treatment Time: 20 Total Billed Treatment 1 visit, GT x20' BISMARK ROSS JACK SPOOLER TENDER Aug 01, 2018 11:56
[2018-08-01 12:00] VITALS: BP 154/68
[2018-08-01] MEDS: METOCLOPRAMIDE INJ 10 MG/2 ML (REGLAN) IVP SCH ×3 (12:20→23:54)
--- NOTE | 2018-08-01 12:50 | Progress Note-Hospitalist ---
Subjective HPI/CC On Admission Date Seen by Provider: Aug 01, 2018 Time Seen by Provider: 12:45 Patient reports trying to piece of toast this morning but vomited within 10 minutes. Currently she denies nausea or stomach pain just states she feels extremely tired. She is not aware of any past history of diabetic gastroparesis. She reports some chest discomfort at the site of her previous chest tubes with movement but not at rest. Objective Exam Vital Signs Vital Signs Date Time Temp Pulse Resp B/P (MAP) Pulse Ox O2 Delivery O2 Flow Rate FiO2 08/01/18 08:29 94 Room Air 08/01/18 08:00 97.6 65 18 176/69 (104) 07/31/18 10:03 21 07/29/18 09:00 2.00 Capillary Refill : Less Than 3 SecondsLess Than 3 Seconds General Appearance: No Apparent Distress, Obese HEENT: Normal ENT Inspection Neck: Supple Respiratory: Lungs Clear Cardiovascular: Regular Rate, Rhythm, No Edema Gastrointestinal: Non Tender, Soft, Abnormal Bowel Sounds (Hypoactive) Rectal: Deferred Extremity: Non Tender, No Calf Tenderness, No Pedal Edema Neurologic/Psychiatric: Alert, Oriented x3, Depressed Affect Skin: Warm/Dry Results/Procedures Lab Laboratory Tests 08/01/18 05:15 Patient resulted labs reviewed. Assessment/Plan Assessment and Plan Assess & Plan/Chief Complaint 1. Acute Bilateral Pneumonia likely due to influenza with Bilateral Pleural Effusions--bilateral chest tubes pulled 07/30. 2. Hypoxia--oxygen sats stable on NC 3. COPD--stable 4. Influenza A--treated 5. Hypertension--increase coreg dose again 6. Diabetes mellitus--insulin requiring--decrease levemir dose due to poor oral intake 7. Back Pain--on lidocaine patches and dose tylenol routinely with tramadol 8. Anemia--Hgb decreased slightly from yesterday continue to monitor counts. 9. Acute on Chronic Renal Insufficiency likely due to dehydration patient on IV fluids. 10. Persistent postprandial nausea and vomiting only possible gastroparesis considering long-standing diabetes will initiate scheduled Reglan 10 mg IV every 6. Clinical Quality Measures DVT/VTE Risk/Contraindication: Risk Factor Score Per Nursin RFS Level Per Nursing on Admit: 4+=Very High RAUL VARGAS MD Aug 01, 2018 12:50
--- NOTE | 2018-08-01 15:23 | Anesthesia-General Post-Op ---
MAC Patient Condition Mental Status/LOC: Same as Preop Cardiovascular: Satisfactory Nausea/Vomiting: Absent Respiratory: Satisfactory Pain: Controlled Complications: Absent Post Op Complications Complications None Follow Up Care/Instructions Patient Instructions None needed. Anesthesiology Discharge Order Discharge Order Patient is doing well, no complaints, stable vital signs, no apparent adverse anesthesia problems. No complications reported per nursing. KIM GILLIS CRNA Aug 01, 2018 15:23
[2018-08-01 16:34] VITALS: BP 159/99
[2018-08-01 19:55] VITALS: BP 171/102
[2018-08-01] MEDS: inSUlin DETERMIR 1 UNIT/0.01 ML (LEVEMIR) CHARGE PER UNIT SQ SCH (20:39)
[2018-08-01] MEDS: LIDOCAINE PATCH REMOVAL TP SCH (20:39)
[2018-08-02] VITALS (7 sets, daily range): BP systolic 138–187; BP diastolic 70–90
[2018-08-02 05:54] LABS: BASOPHILS % (AUTO) 0 % (0-10); EOSINOPHILS % (AUTO) 0 % (0-10); HEMATOCRIT 24 % (35-52); HEMOGLOBIN 7.6 G/DL (11.5-16.0); LYMPHOCYTES # (AUTO) 1.7 X 10^3 (1.0-4.0); LYMPHOCYTES % (AUTO) 16 % (12-44); MEAN CORPUSCULAR HEMOGLOBIN 29 PG (25-34); MEAN CORPUSCULAR HGB CONC 32 G/DL (32-36); MEAN CORPUSCULAR VOLUME 89 FL (80-99); MEAN PLATELET VOLUME 9.4 FL (7.4-10.4); MONOCYTES # (AUTO) 0.8 X 10^3 (0.0-1.0); MONOCYTES % (AUTO) 8 % (0-12); NEUTROPHILS # (AUTO) 7.7 X 10^3 (1.8-7.8); NEUTROPHILS % (AUTO) 75 % (42-75); PLATELET COUNT 487 10^3/uL (130-400); RED CELL DISTRIBUTION WIDTH 14.1 % (10.0-14.5); WHITE BLOOD COUNT 10.3 10^3/uL (4.3-11.0)
[2018-08-02] MEDS: METOCLOPRAMIDE INJ 10 MG/2 ML (REGLAN) IVP SCH ×3 (05:59→17:49)
[2018-08-02] MEDS: inSUlin ASPART (NovoLOG) 1 UNIT/0.01 ML (CHARGE PER UNIT) SC SCH ×4 (06:01→22:02)
[2018-08-02 06:16] LABS: CALCIUM 8.1 MG/DL (8.5-10.1); CREATININE SERUM 2.07 MG/DL (0.60-1.30); MAGNESIUM 2.2 MG/DL (1.8-2.4); PHOSPHORUS 6.1 MG/DL (2.3-4.7); POTASSIUM 5.1 MMOL/L (3.6-5.0)
--- NOTE | 2018-08-02 06:22 | NUR ---
THIS RN CALLED DR. VARGAS IN REGARDS TO THE PT HAVING A CRITICAL SODIUM OF 125. ORDERS RECEIVED TO DC DEXTROSE 5%/ 0.45 SODIUM CHLORIDE AT 100 ML/HR AND START DEXTROSE 5%/ 0.9% SODIUM CHLORIDE AT 100 ML/HR. ORDERS READ BACK AND VERIFIED.
[2018-08-02] MEDS: D5 NS 1000 ML IV SOLUTION 1,000 ML IV SCH ×3 (07:34→17:42)
[2018-08-02] MEDS: CARVEDILOL 12.5 MG (COREG) TABLET PO SCH ×2 (09:57→22:02)
[2018-08-02] MEDS: PANTOPRAZOLE 40 MG (PROTONIX) TAB PO SCH (09:57)
[2018-08-02] MEDS: CEFDINIR 300 MG (OMNICEF) CAP PO SCH ×2 (09:57→22:01)
[2018-08-02] MEDS: DULoxetine 30 MG (CYMBALTA) CAP PO SCH ×2 (09:57→22:01)
[2018-08-02] MEDS: ACETAMINOPHEN 325 MG TABLET PO SCH ×4 (09:58→22:01)
[2018-08-02] MEDS: LIDOCAINE 4% (SALONPAS) PATCH TOP SCH (10:05)
[2018-08-02] MEDS ORDERED: FUROSEMIDE 40 MG/4 ML INJ (LASIX) IVP NR (10:09)
[2018-08-02] MEDS: VITAMIN D3 5,000 UNITS (CHOLECALCIFEROL ) CAPSULE PO SCH (10:09)
--- NOTE | 2018-08-02 12:36 | Progress Note-Hospitalist ---
Subjective HPI/CC On Admission Date Seen by Provider: Aug 02, 2018 Time Seen by Provider: 11:30 Patient reports trying to piece of toast this morning but vomited within 10 minutes. Currently she denies nausea or stomach pain just states she feels extremely tired. She is not aware of any past history of diabetic gastroparesis. She reports some chest discomfort at the site of her previous chest tubes with movement but not at rest. Subjective/Events-last exam Patient's by mouth intake is picked up predominantly fluids tolerating protein shakes with no nausea since noon yesterday roughly around the time she started metoclopramide. She reports fatigue and generalized weakness but feeling a little better than yesterday and affect appears to be a little less depressed. This was despite the fact that this morning sodium level had decreased to 125 from 130 yesterday. Objective Exam Vital Signs Vital Signs Date Time Temp Pulse Resp B/P (MAP) Pulse Ox O2 Delivery O2 Flow Rate FiO2 08/02/18 08:00 97.8 60 18 187/90 (122) 95 Room Air 07/31/18 10:03 21 07/29/18 09:00 2.00 Capillary Refill : Less Than 3 SecondsLess Than 3 Seconds General Appearance: No Apparent Distress, Obese HEENT: Normal ENT Inspection Neck: Supple Respiratory: Lungs Clear Cardiovascular: Regular Rate, Rhythm, No Edema Gastrointestinal: Non Tender, Soft, Abnormal Bowel Sounds (Hypoactive) Rectal: Deferred Extremity: Non Tender, No Calf Tenderness, No Pedal Edema Neurologic/Psychiatric: Alert, Oriented x3, Depressed Affect Skin: Warm/Dry Results/Procedures Lab Laboratory Tests 08/02/18 05:47 Patient resulted labs reviewed. Assessment/Plan Assessment and Plan Assess & Plan/Chief Complaint 1. Acute Bilateral Pneumonia likely due to influenza with Bilateral Pleural Effusions--bilateral chest tubes pulled 07/30. 2. Hypoxia--oxygen sats stable on NC 3. COPD--stable 4. Influenza A--treated 5. Hypertension moderate asymptomatic blood pressure elevation. Considering this and hyponatremia we are switching her IV fluids to normal saline with D5 we 'll give her a liter and then follow this with 40 mg of Lasix IV. Repeat a basic metabolic panel this afternoon and again in the morning. In reviewing her medication list only Cymbalta could potentially have a negative impact that she has been on the medication for a long time so will not change this unless for having difficulty with maintaining normal sodium level. 6. Diabetes mellitus--insulin requiring--decrease levemir dose due to poor oral intake 7. Back Pain--on lidocaine patches and dose tylenol routinely with tramadol 8. Anemia--Hgb decreased slightly from yesterday continue to monitor counts. 9. Acute on Chronic Renal Insufficiency likely due to dehydration patient on IV fluids. 10. Persistent postprandial nausea and vomiting only possible gastroparesis symptomatically improved on Reglan will continue. Clinical Quality Measures DVT/VTE Risk/Contraindication: Risk Factor Score Per Nursin RFS Level Per Nursing on Admit: 4+=Very High RAUL VARGAS MD Aug 02, 2018 12:36
--- NOTE | 2018-08-02 12:56 | Pulmonary Progress Note ---
Subjective Time Seen by a Provider: 12:56 Subjective/Events-last exam No complications noted. Sepsis Event Evaluation Height, Weight, BMI Height: 5'2.00" Weight: 205lbs. 0.5oz. 93.762520hc; 35.9 BMI Method:Stated Exam Exam Vital Signs Date Time Temp Pulse Resp B/P (MAP) Pulse Ox O2 Delivery O2 Flow Rate FiO2 08/02/18 08:00 97.8 60 18 187/90 (122) 95 Room Air 08/02/18 04:15 98.2 66 18 169/82 (111) 95 Room Air 08/02/18 00:25 98.0 57 18 138/79 (98) 96 Room Air 08/01/18 21:00 Room Air 08/01/18 19:55 97.8 70 24 171/102 (125) 97 Room Air 08/01/18 19:25 92 Room Air 08/01/18 16:34 97.4 65 20 159/99 (119) 96 Room Air I & O 08/02/18 07:00 Intake Total 850 ml Balance 850 ml Height & Weight Height: 5'2.00" Weight: 205lbs. 0.5oz. 93.199181rv; 35.9 BMI Method:Stated General Appearance: No Apparent Distress, Obese HEENT: Normal ENT Inspection Neck: Supple Respiratory: Lungs Clear Cardiovascular: Regular Rate, Rhythm, No Edema Capillary Refill: Less Than 3 Seconds Gastrointestinal: normal bowel sounds, non tender, soft Extremity: Non Tender, No Calf Tenderness, No Pedal Edema Neurologic/Psychiatric: Alert, Oriented x3, Depressed Affect Skin: Warm/Dry Results Lab Laboratory Tests 08/01/18 05:15 08/02/18 05:47 Assessment/Plan Assessment/Plan Acute bilateral pneumonia -Maxipime -Douglas cultures neg thus far Pulmonary edema with exudative pleural effusions bilaterally. -S/P bilateral Chest tubes- are d/c'd Hx of Anoxic encephalopathy Influenza A -s/p Tamiflu WHITNEY HOLLOWAY DO Aug 02, 2018 12:56
--- NOTE | 2018-08-02 13:40 | NUR ---
PT RESTING AT THIS TIME, DGT HERE AND GIVEN UPDATE. PT DGT REFUSING 1300 MEDS AT THIS TIME.
[2018-08-02] MEDS: RT-ALBUTEROL/IPRATROPIUM 3 ML (DUONEB) VIAL INH SCH ×2 (14:18→20:32)
[2018-08-02 15:47] LABS: CALCIUM 7.9 MG/DL (8.5-10.1); CREATININE SERUM 2.03 MG/DL (0.60-1.30); POTASSIUM 5.1 MMOL/L (3.6-5.0)
[2018-08-02] MEDS: morphine INJ 4 MG/ML 1 ML (VIAL/SYRINGE) IVP PRN (22:00)
[2018-08-02] MEDS: LIDOCAINE PATCH REMOVAL TP SCH (22:02)
[2018-08-02] MEDS: inSUlin DETERMIR 1 UNIT/0.01 ML (LEVEMIR) CHARGE PER UNIT SQ SCH (22:02)
[2018-08-03] MEDS: METOCLOPRAMIDE INJ 10 MG/2 ML (REGLAN) IVP SCH ×4 (00:02→17:18)
[2018-08-03] MEDS: D5 NS 1000 ML IV SOLUTION 1,000 ML IV SCH ×3 (00:32→22:00)
[2018-08-03 03:13] VITALS: BP 121/77
[2018-08-03 03:25] LABS: BASOPHILS % (AUTO) 0 % (0-10); EOSINOPHILS # (AUTO) 0.1 10^3/uL (0.0-0.3); EOSINOPHILS % (AUTO) 1 % (0-10); HEMATOCRIT 23 % (35-52); HEMOGLOBIN 7.4 G/DL (11.5-16.0); LYMPHOCYTES % (AUTO) 21 % (12-44); MEAN CORPUSCULAR HEMOGLOBIN 29 PG (25-34); MEAN CORPUSCULAR HGB CONC 33 G/DL (32-36); MEAN CORPUSCULAR VOLUME 89 FL (80-99); MEAN PLATELET VOLUME 9.5 FL (7.4-10.4); MONOCYTES # (AUTO) 0.7 X 10^3 (0.0-1.0); MONOCYTES % (AUTO) 7 % (0-12); NEUTROPHILS # (AUTO) 7.1 X 10^3 (1.8-7.8); NEUTROPHILS % (AUTO) 72 % (42-75); PLATELET COUNT 491 10^3/uL (130-400); RED CELL DISTRIBUTION WIDTH 14.5 % (10.0-14.5); WHITE BLOOD COUNT 9.9 10^3/uL (4.3-11.0)
[2018-08-03 03:43] LABS: CALCIUM 7.8 MG/DL (8.5-10.1); CREATININE SERUM 2.08 MG/DL (0.60-1.30); PHOSPHORUS 5.9 MG/DL (2.3-4.7); POTASSIUM 4.9 MMOL/L (3.6-5.0)
[2018-08-03] MEDS: inSUlin ASPART (NovoLOG) 1 UNIT/0.01 ML (CHARGE PER UNIT) SC SCH ×4 (04:40→22:06)
[2018-08-03 08:00] VITALS: BP 145/71
[2018-08-03] MEDS: VITAMIN D3 5,000 UNITS (CHOLECALCIFEROL ) CAPSULE PO SCH (08:50)
[2018-08-03] MEDS: DULoxetine 30 MG (CYMBALTA) CAP PO SCH ×2 (08:50→22:01)
[2018-08-03] MEDS: PANTOPRAZOLE 40 MG (PROTONIX) TAB PO SCH (08:50)
[2018-08-03] MEDS: CARVEDILOL 12.5 MG (COREG) TABLET PO SCH ×2 (08:50→22:03)
[2018-08-03] MEDS: ACETAMINOPHEN 325 MG TABLET PO SCH ×4 (08:50→22:01)
[2018-08-03] MEDS: CEFDINIR 300 MG (OMNICEF) CAP PO SCH ×2 (08:50→22:01)
[2018-08-03] MEDS: LIDOCAINE 4% (SALONPAS) PATCH TOP SCH (08:51)
[2018-08-03 10:21] VITALS: BP 145/71
[2018-08-03] MEDS: RT-ALBUTEROL/IPRATROPIUM 3 ML (DUONEB) VIAL INH SCH (10:21)
--- NOTE | 2018-08-03 10:41 | Physical Therapy Daily Note ---
PT Daily Note-Current Subjective AGrees to PT with with max encouragement Pain Numeric Pain Scale: 0-No Pain Location: No Pain Reported Mental Status Patient Orientation: Person, Confused, Place, Time, Situation Attachments: IV Transfers Therapy Code Descriptions/Definitions Functional [place] Measure: 0=Not Assessed/NA 4=Minimal Assistance 1=Total Assistance 5=Supervision or Setup 2=Maximal Assistance 6=Modified [place] 3=Moderate Assistance 7=Complete [place] Therapy Quality Codes: 6 Independent with activity with or without an assistive device 5 Patient requires set up or clean up by helper. Patient completes activity by themselves 4 Supervision or touching assist (CGA). [place] provide cues , steadying assist 3 The helper provides less than half the effort to complete the activity 2 The helper provides more than half the effort to complete the activity 1 Dependent. The helper does all the effort to complete an activity 7 Patient refused to complete or attempt activity 9 The patient did not perform the activity before the current illness or injury 88 Not attempted due to Medical conditions or safety concerns sit to stand with CGA with skilled cues for hand placement and safety. Weight Bearing Right Lower Extremity: Right Full Weight Bearing Left Lower Extremity: Left Full Weight Bearing Gait Training Gait (FIM): 4 Distance (FIM): 3=150 ft Distance: 200 ft Gait Level of Assist: 4 (CGA) Gait Assistive Device: None CGA and pt held esparza rail to walk; unsteady with wide LEONELA. Exercises Seated Therapy Exercises: Ankle pumps (15), Sit to stand (x5), Long arc quads ( 15), Shoulder Abd (15), Hip flexion, Hip abd/add (15) LE strengthening to promote functional gait and transfers. Treatments gait and ther ex Assessment Current Status: Good Progress Agrees to PT with encouragement; unsteady with gait this visit. PT Short Term Goals Short Term Goals Time Frame: Aug 05, 2018 Transfers (B,C,W/C) (FIM): 5 Gait (FIM): 2 Distance (FIM): 1=910-86 ft Gait Distance Comment: 50' Gait Level of Assist: 5 Gait Assistive Device: None PT Plan Problem List Problem List: Activity Tolerance, Functional Strength, Safety Treatment/Plan Treatment Plan: Continue Plan of Care Treatment Plan: Bed Mobility, Education, Functional Activity Carlos, Functional Strength, Gait, Safety, Therapeutic Exercise, Transfers Treatment Duration: Aug 05, 2018 Frequency: 6 times per week Estimated Hrs Per Day: .25 hour per day (15-30') Patient and/or Family Agrees t: Yes Safety Risks/Education Patient Education: Safety Issues Teaching Recipient: Patient Teaching Methods: Discussion Response to Teaching: Reinforcement Needed Time/GCodes Time In: 930 Time Out: 953 Total Billed Treatment Time: 23 Total Billed Treatment visit GT 10 EX 13 RAYMON PARISI PT Aug 03, 2018 10:41
[2018-08-03 12:00] VITALS: BP 108/55
--- NOTE | 2018-08-03 15:07 | Pulmonary Progress Note ---
Subjective Time Seen by a Provider: 15:05 Subjective/Events-last exam Pt is doing well from pulmonary standpoint. Sepsis Event Evaluation Height, Weight, BMI Height: 5'2.00" Weight: 204lbs. 3.0oz. 92.171955ys; 35.9 BMI Method:Stated Exam Exam Vital Signs Date Time Temp Pulse Resp B/P (MAP) Pulse Ox O2 Delivery O2 Flow Rate FiO2 08/03/18 12:00 97.8 58 18 108/55 (72) 96 Room Air 08/03/18 10:21 98 Room Air 08/03/18 10:21 63 98 08/03/18 08:50 Room Air 08/03/18 08:00 96.7 65 20 145/71 (95) 95 Room Air 08/03/18 03:13 97.6 64 20 121/77 (92) 97 Room Air 08/02/18 23:23 97.5 74 24 152/70 (97) 96 Room Air 08/02/18 21:00 Room Air 08/02/18 20:33 94 Room Air 08/02/18 20:06 97.8 73 18 180/81 (114) 96 Room Air 08/02/18 16:29 96.1 65 18 153/89 (110) 97 Room Air I & O 08/03/18 07:00 Intake Total 2640 ml Balance 2640 ml Height & Weight Height: 5'2.00" Weight: 204lbs. 3.0oz. 92.044735ng; 35.9 BMI Method:Stated General Appearance: No Apparent Distress, Obese HEENT: Normal ENT Inspection Neck: Supple Respiratory: Lungs Clear Cardiovascular: Regular Rate, Rhythm, No Edema Capillary Refill: Less Than 3 Seconds Gastrointestinal: normal bowel sounds, non tender, soft Extremity: Non Tender, No Calf Tenderness, No Pedal Edema Neurologic/Psychiatric: Alert, Oriented x3, Depressed Affect Skin: Warm/Dry Results Lab Laboratory Tests 08/02/18 05:47 08/02/18 15:26 08/03/18 03:20 Assessment/Plan Assessment/Plan Acute bilateral pneumonia -D/C Omnicef -Douglas cultures neg thus far Pulmonary edema with exudative pleural effusions bilaterally. -S/P bilateral Chest tubes- are d/c'd Renal failure -With metabolic lactic acidosis -IVF -Check [place] Hx of Anoxic encephalopathy Influenza A -s/p Tamiflu WHITNEY HOLLOWAY DO Aug 03, 2018 15:07
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
[2018-08-03 16:20] VITALS: BP 131/84
--- NOTE | 2018-08-03 18:33 | Progress Note (SOAP) ---
Subjective Date Seen by a Provider: Aug 03, 2018 Time Seen by a Provider: 12:30 Subjective/Events-last exam Fwup pneumonia with pleural effusions, hypoxia, influenza A, COPD, uncontrolled DM--insulin requiring, HTN, anoxic encephalopathy. Sitting up in chair but more alert and less depressed. States eating a little bit better. Objective Exam Vital Signs Date Time Temp Pulse Resp B/P (MAP) Pulse Ox O2 Delivery O2 Flow Rate FiO2 08/03/18 16:20 96.1 57 16 131/84 (100) 96 Room Air 08/03/18 12:00 97.8 58 18 108/55 (72) 96 Room Air 08/03/18 10:21 98 Room Air 08/03/18 10:21 63 98 08/03/18 08:50 Room Air 08/03/18 08:00 96.7 65 20 145/71 (95) 95 Room Air 08/03/18 03:13 97.6 64 20 121/77 (92) 97 Room Air 08/02/18 23:23 97.5 74 24 152/70 (97) 96 Room Air 08/02/18 21:00 Room Air 08/02/18 20:33 94 Room Air 08/02/18 20:06 97.8 73 18 180/81 (114) 96 Room Air I & O 08/03/18 07:00 Intake Total 2640 ml Balance 2640 ml Capillary Refill : Less Than 3 SecondsLess Than 3 Seconds General Appearance: No Apparent Distress Neck: Supple Respiratory: Lungs Clear, Decreased Breath Sounds Cardiovascular: Regular Rate, Rhythm Gastrointestinal: normal bowel sounds, non tender, soft Extremity: Non Tender, No Calf Tenderness, No Pedal Edema Neurologic/Psychiatric: Alert, Oriented x3 Skin: Warm/Dry Results Lab Laboratory Tests 08/02/18 20:11: Glucometer 192H 08/03/18 03:20: White Blood Count 9.9, Red Blood Count 2.54L, Hemoglobin 7.4L, Hematocrit 23L, Mean Corpuscular Volume 89, Mean Corpuscular Hemoglobin 29, Mean Corpuscular Hemoglobin Concent 33, Red Cell Distribution Width 14.5, Platelet Count 491H, Mean Platelet Volume 9.5, Neutrophils (%) (Auto) 72, Lymphocytes (%) (Auto) 21, Monocytes (%) (Auto) 7, Eosinophils (%) (Auto) 1, Basophils (%) (Auto) 0, Neutrophils # (Auto) 7.1, Lymphocytes # (Auto) 2.0, Monocytes # (Auto) 0.7, Eosinophils # (Auto) 0.1, Basophils # (Auto) 0.0, Sodium Level 130L, Potassium Level 4.9, Chloride Level 105, Carbon Dioxide Level 17L, Anion Gap 8, Blood Urea Nitrogen 47H, Creatinine 2.08H, Estimat Glomerular Filtration Rate 25, BUN/ Creatinine Ratio 23, Glucose Level 134H, Calcium Level 7.8L, Phosphorus Level 5.9H, Magnesium Level 2.0 08/03/18 11:17: Glucometer 204H 08/03/18 16:22: Glucometer 97 Microbiology 07/23/18 Blood Culture - Final, Complete No growth 07/27/18 Gram Stain - Final, Complete 07/27/18 Body Fluid Culture - Final, Complete No growth 07/26/18 MRSA Screen - Final, Complete MRSA not isolated 07/23/18 Urine Culture - Final, Complete NO GROWTH Assessment/Plan Assessment/Plan Assess & Plan/Chief Complaint 1. Acute Bilateral Pneumonia with Bilateral Pleural Effusions--improved 2. Hypoxia--oxygen sats stable on NC 3. COPD--stable 4. Influenza A--treated 5. Hypertension--stable 6. Diabetes mellitus--stable 7. Back Pain--on lidocaine patches and dose tylenol routinely with tramadol 8. Anemia--repeat Hgb in AM 9. Acute on Chronic Renal Insufficiency--check renal US, Chemistry in AM Clinical Quality Measures Admission Status Admission Dx 1. Acute Bilateral Pneumonia--cover with maxipime due to recent hospital stay 2. Acute Hypoxia--on oxygen and SVNs 3. Influenza A--on tamiflu 4. Hypertension--restart coreg 5. Diabetes mellitus--insulin requiring--start levemir and SSI 6. Anoxic Encephalopathy--stable DVT/VTE Risk/Contraindication: Risk Factor Score Per Nursin RFS Level Per Nursing on Admit: 4+=Very High MIRELA LYLE DO Aug 03, 2018 18:33
--- NOTE | 2018-08-03 19:09 | Diagnostic Imaging Report ---
PROCEDURE: US Renal Bilateral. TECHNIQUE: Multiple real-time grayscale images were obtained over the kidneys in various projections bilaterally. INDICATION: Renal insufficiency. FINDINGS: The right kidney is 10.8 cm, the left kidney 11.5 cm. There is no solid or cystic renal mass. No echogenic or shadowing stone. No hydronephrosis. The urinary bladder appears unremarkable. We were, however, unable to confirm ureteral jets with color Doppler. IMPRESSION: Unobstructed kidneys appear normal. Nonfocal bladder. Dictated by: Dictated on workstation # [id number]
[2018-08-03] MEDS: inSUlin DETERMIR 1 UNIT/0.01 ML (LEVEMIR) CHARGE PER UNIT SQ SCH (22:02)
[2018-08-03] MEDS: LIDOCAINE PATCH REMOVAL TP SCH (22:06)
[2018-08-04] VITALS: BP 164/80
[2018-08-04] MEDS: METOCLOPRAMIDE INJ 10 MG/2 ML (REGLAN) IVP SCH ×5 (00:28→23:07)
[2018-08-04] MEDS: morphine INJ 4 MG/ML 1 ML (VIAL/SYRINGE) IVP PRN (00:34)
[2018-08-04] MEDS: inSUlin ASPART (NovoLOG) 1 UNIT/0.01 ML (CHARGE PER UNIT) SC SCH ×4 (05:37→20:52)
[2018-08-04] MEDS: D5 NS 1000 ML IV SOLUTION 1,000 ML IV SCH (06:44)
--- NOTE | 2018-08-04 06:48 | Pulmonary Progress Note ---
Subjective Time Seen by a Provider: 06:48 Subjective/Events-last exam Kidney function is worsening. SOB is stable. Sepsis Event Evaluation Height, Weight, BMI Height: 5'2.00" Weight: 204lbs. 3.0oz. 92.199720eu; 35.9 BMI Method:Stated Exam Exam Vital Signs Date Time Temp Pulse Resp B/P (MAP) Pulse Ox O2 Delivery O2 Flow Rate FiO2 08/04/18 00:00 97.0 64 16 164/80 (108) 95 Room Air 08/03/18 21:00 Room Air 08/03/18 16:20 96.1 57 16 131/84 (100) 96 Room Air 08/03/18 12:00 97.8 58 18 108/55 (72) 96 Room Air 08/03/18 10:21 98 Room Air 08/03/18 10:21 63 98 08/03/18 08:50 Room Air 08/03/18 08:00 96.7 65 20 145/71 (95) 95 Room Air I & O 08/04/18 07:00 Intake Total 3910 ml Output Total 200 ml Balance 3710 ml Height & Weight Height: 5'2.00" Weight: 204lbs. 3.0oz. 92.342520hf; 35.9 BMI Method:Stated General Appearance: No Apparent Distress, Obese HEENT: Normal ENT Inspection Neck: Supple Respiratory: Lungs Clear Cardiovascular: Regular Rate, Rhythm, No Edema Capillary Refill: Less Than 3 Seconds Gastrointestinal: normal bowel sounds, non tender, soft Extremity: Non Tender, No Calf Tenderness, No Pedal Edema Neurologic/Psychiatric: Alert, Oriented x3, Depressed Affect Skin: Warm/Dry Results Lab Laboratory Tests 08/02/18 15:26 08/03/18 03:20 Assessment/Plan Assessment/Plan Acute bilateral pneumonia -D/C Omnicef -Douglas cultures neg thus far Pulmonary edema with exudative pleural effusions bilaterally. -S/P bilateral Chest tubes- are d/c'd Renal failure - worsening -US of kidneys is negative -IVF D5NS - going at 100cc/hr -Will give a 1 liter bolus of NS and increase IVF to 150 -Check LA and BNP -monitor Hyperkalemia and metabolic acidosis -IVF -Give 2 amps of bicarb Hx of Anoxic encephalopathy Influenza A -s/p Tamiflu WHITNEY HOLLOWAY DO Aug 04, 2018 06:48
[2018-08-04 06:49] LABS: BASOPHILS % (AUTO) 0 % (0-10); EOSINOPHILS # (AUTO) 0.1 10^3/uL (0.0-0.3); EOSINOPHILS % (AUTO) 1 % (0-10); HEMATOCRIT 24 % (35-52); HEMOGLOBIN 7.5 G/DL (11.5-16.0); LYMPHOCYTES # (AUTO) 1.6 X 10^3 (1.0-4.0); LYMPHOCYTES % (AUTO) 22 % (12-44); MEAN CORPUSCULAR HEMOGLOBIN 29 PG (25-34); MEAN CORPUSCULAR HGB CONC 32 G/DL (32-36); MEAN CORPUSCULAR VOLUME 91 FL (80-99); MEAN PLATELET VOLUME 9.2 FL (7.4-10.4); MONOCYTES # (AUTO) 0.6 X 10^3 (0.0-1.0); MONOCYTES % (AUTO) 8 % (0-12); NEUTROPHILS # (AUTO) 5.1 X 10^3 (1.8-7.8); NEUTROPHILS % (AUTO) 69 % (42-75); PLATELET COUNT 468 10^3/uL (130-400); RED CELL DISTRIBUTION WIDTH 14.9 % (10.0-14.5); WHITE BLOOD COUNT 7.4 10^3/uL (4.3-11.0)
--- NOTE | 2018-08-04 06:49 | Pulmonary Progress Note ---
Sepsis Event Evaluation Height, Weight, BMI Height: 5'2.00" Weight: 204lbs. 3.0oz. 92.434422cs; 35.9 BMI Method:Stated Exam Exam Vital Signs Date Time Temp Pulse Resp B/P (MAP) Pulse Ox O2 Delivery O2 Flow Rate FiO2 08/04/18 00:00 97.0 64 16 164/80 (108) 95 Room Air 08/03/18 21:00 Room Air 08/03/18 16:20 96.1 57 16 131/84 (100) 96 Room Air 08/03/18 12:00 97.8 58 18 108/55 (72) 96 Room Air 08/03/18 10:21 98 Room Air 08/03/18 10:21 63 98 08/03/18 08:50 Room Air 08/03/18 08:00 96.7 65 20 145/71 (95) 95 Room Air I & O 08/04/18 07:00 Intake Total 1910 ml Output Total 200 ml Balance 1710 ml Height & Weight Height: 5'2.00" Weight: 204lbs. 3.0oz. 92.530698lq; 35.9 BMI Method:Stated General Appearance: No Apparent Distress, Obese HEENT: Normal ENT Inspection Neck: Supple Respiratory: Lungs Clear Cardiovascular: Regular Rate, Rhythm, No Edema Capillary Refill: Less Than 3 Seconds Gastrointestinal: normal bowel sounds, non tender, soft Extremity: Non Tender, No Calf Tenderness, No Pedal Edema Neurologic/Psychiatric: Alert, Oriented x3, Depressed Affect Skin: Warm/Dry Results Lab Laboratory Tests 08/02/18 15:26 08/03/18 03:20 Assessment/Plan Assessment/Plan Acute bilateral pneumonia -D/C Omnicef -Douglas cultures neg thus far Pulmonary edema with exudative pleural effusions bilaterally. -S/P bilateral Chest tubes- are d/c'd Renal failure -With metabolic lactic acidosis -IVF -Check [place] Hx of Anoxic encephalopathy Influenza A -s/p Tamiflu WHITNEY HOLLOWAY DO Aug 04, 2018 06:49
[2018-08-04] MEDS ORDERED: NS IV 1000 ML 1,000 ML IV ONE (07:00)
[2018-08-04 07:01] LABS: CREATININE SERUM 2.13 MG/DL (0.60-1.30); POTASSIUM 5.2 MMOL/L (3.6-5.0)
[2018-08-04 07:02] LABS: MAGNESIUM 1.8 MG/DL (1.8-2.4); PHOSPHORUS 6.1 MG/DL (2.3-4.7)
[2018-08-04] MEDS ORDERED: hydrALAZINE (APESOLINE) 20 MG/ML VIAL IV PRN (07:15)
[2018-08-04 08:00] VITALS: BP 168/108
--- NOTE | 2018-08-04 08:06 | Diagnostic Imaging Report ---
INDICATION: Shortness of breath. COMPARISON: 07/31/2018. FINDINGS: Right IJ catheter placed tip at the SVC. There is no pneumothorax. There is fullness of the pulmonary katarina bilaterally greater right than left unchanged. Small effusions not significantly changed. There is some probable interstitial edema which may have increased. IMPRESSION: Mild increased edema and a right IJ catheter placed at the SVC reflect the only interval changes. No pneumothorax. Dictated by: Dictated on workstation # [id number]
[2018-08-04] MEDS ORDERED: SODIUM BICARB 8.4% 50 MEQ/50 ML (ABBOTT) SYR IV NR (08:30)
[2018-08-04] MEDS: CEFDINIR 300 MG (OMNICEF) CAP PO SCH ×2 (09:58→21:10)
[2018-08-04] MEDS: VITAMIN D3 5,000 UNITS (CHOLECALCIFEROL ) CAPSULE PO SCH (09:58)
[2018-08-04] MEDS: CARVEDILOL 12.5 MG (COREG) TABLET PO SCH ×2 (09:58→21:11)
[2018-08-04] MEDS: DULoxetine 30 MG (CYMBALTA) CAP PO SCH ×2 (09:59→21:10)
[2018-08-04] MEDS: ACETAMINOPHEN 325 MG TABLET PO SCH ×4 (09:59→21:11)
[2018-08-04] MEDS: PANTOPRAZOLE 40 MG (PROTONIX) TAB PO SCH (09:59)
[2018-08-04] MEDS: LIDOCAINE 4% (SALONPAS) PATCH TOP SCH (10:00)
--- NOTE | 2018-08-04 11:18 | Physical Therapy Daily Note ---
PT Daily Note-Current Subjective Patient states she hopes to go home today. Agrees to PT. Pain Numeric Pain Scale: 0-No Pain Location: No Pain Reported Mental Status Patient Orientation: Confused Attachments: IV Transfers Therapy Code Descriptions/Definitions Functional Traverse Measure: 0=Not Assessed/NA 4=Minimal Assistance 1=Total Assistance 5=Supervision or Setup 2=Maximal Assistance 6=Modified Traverse 3=Moderate Assistance 7=Complete Traverse Therapy Quality Codes: 6 Independent with activity with or without an assistive device 5 Patient requires set up or clean up by helper. Patient completes activity by themselves 4 Supervision or touching assist (CGA). [place] provide cues , steadying assist 3 The helper provides less than half the effort to complete the activity 2 The helper provides more than half the effort to complete the activity 1 Dependent. The helper does all the effort to complete an activity 7 Patient refused to complete or attempt activity 9 The patient did not perform the activity before the current illness or injury 88 Not attempted due to Medical conditions or safety concerns Transfers (B, C, W/C) (FIM): 7 Scootin Sit to/from Stand: 7 Weight Bearing Right Lower Extremity: Right Full Weight Bearing Left Lower Extremity: Left Full Weight Bearing Gait Training Gait (FIM): 7 Distance (FIM): 3=150 ft Distance: 300' x 2 Gait Level of Assist: 7 Gait Assistive Device: None WBOS with ambulation due to morbid obesity Assessment Patient is currently at independent PLOF with all gross motor skills and will be dismissed by PT at this time. PT Short Term Goals Short Term Goals Time Frame: Aug 05, 2018 Transfers (B,C,W/C) (FIM): 5 Gait (FIM): 2 Distance (FIM): 5=174-05 ft Gait Distance Comment: 50' Gait Level of Assist: 5 Gait Assistive Device: None PT Plan Treatment/Plan Treatment Plan: Discontinue PT, goals met Treatment Plan: Bed Mobility, Education, Functional Activity Carlos, Functional Strength, Gait, Safety, Therapeutic Exercise, Transfers Treatment Duration: Aug 05, 2018 Frequency: 6 times per week Estimated Hrs Per Day: .25 hour per day (15-30') Patient and/or Family Agrees t: Yes Time/GCodes Time In: 1032 Time Out: 1042 Total Billed Treatment Time: 10 Total Billed Treatment 1 visit FA 10 min LISA NARANJO PT Aug 04, 2018 11:17
[2018-08-04] MEDS: fluCOnazole (DIFLUCAN) 100 MG TAB PO SCH (14:54)
[2018-08-04] MEDS ORDERED: NS IV 500 ML 500 ML IV SCH (16:00)
[2018-08-04 16:09] VITALS: BP 150/85
[2018-08-04] MEDS ORDERED: NS IV 500 ML 500 ML ONE (16:10)
[2018-08-04 16:34] VITALS: BP 150/85
[2018-08-04 16:56] VITALS: BP 163/89
--- NOTE | 2018-08-04 18:52 | Progress Note (SOAP) ---
Subjective Date Seen by a Provider: Aug 04, 2018 Time Seen by a Provider: 18:49 Subjective/Events-last exam Fwup pneumonia with pleural effusions, hypoxia, influenza A, COPD, uncontrolled DM--insulin requiring, HTN, anoxic encephalopathy, acute on chronic renal insufficiency. Sitting up in chair with no complaints. Wants to go home. Focused Exam Lactate Level 08/04/18 07:36: Lactic Acid Level 0.61 Objective Exam Vital Signs Date Time Temp Pulse Resp B/P (MAP) Pulse Ox O2 Delivery O2 Flow Rate FiO2 08/04/18 18:20 97.8 08/04/18 16:56 97.8 75 163/89 Room Air 08/04/18 16:34 97.8 75 17 150/85 Room Air 08/04/18 16:09 97.8 75 17 150/85 (106) 96 Room Air 08/04/18 08:00 Room Air 08/04/18 08:00 97.4 70 20 168/108 (128) 96 Room Air 08/04/18 00:00 97.0 64 16 164/80 (108) 95 Room Air 08/03/18 21:00 Room Air I & O 08/04/18 07:00 Intake Total 4510 ml Output Total 200 ml Balance 4310 ml Capillary Refill : Less Than 3 SecondsLess Than 3 Seconds General Appearance: No Apparent Distress Neck: Supple Respiratory: Lungs Clear Cardiovascular: Regular Rate, Rhythm Gastrointestinal: normal bowel sounds, non tender, soft Extremity: Non Tender, No Calf Tenderness, No Pedal Edema Neurologic/Psychiatric: Alert, Oriented x3 Skin: Warm/Dry Results Lab Laboratory Tests 08/03/18 21:30: Glucometer 115H 08/04/18 05:17: Glucometer 161H 08/04/18 06:40: White Blood Count 7.4, Red Blood Count 2.60L, Hemoglobin 7.5L, Hematocrit 24L, Mean Corpuscular Volume 91, Mean Corpuscular Hemoglobin 29, Mean Corpuscular Hemoglobin Concent 32, Red Cell Distribution Width 14.9H, Platelet Count 468H, Mean Platelet Volume 9.2, Neutrophils (%) (Auto) 69, Lymphocytes (%) (Auto) 22, Monocytes (%) (Auto) 8, Eosinophils (%) (Auto) 1, Basophils (%) (Auto) 0, Neutrophils # (Auto) 5.1, Lymphocytes # (Auto) 1.6, Monocytes # (Auto) 0.6, Eosinophils # (Auto) 0.1, Basophils # (Auto) 0.0, Sodium Level 131L, Potassium Level 5.2H, Chloride Level 107, Carbon Dioxide Level 17L, Anion Gap 7, Blood Urea Nitrogen 45H, Creatinine 2.13H, Estimat Glomerular Filtration Rate 25, BUN/ Creatinine Ratio 21, Glucose Level 152H, Calcium Level 8.0L, Phosphorus Level 6.1H, Magnesium Level 1.8, B-Type Natriuretic Peptide 251.2H 08/04/18 07:36: Lactic Acid Level 0.61 08/04/18 12:01: Glucometer 163H 08/04/18 16:10: Glucometer 246H Microbiology 07/23/18 Blood Culture - Final, Complete No growth 07/27/18 Gram Stain - Final, Complete 07/27/18 Body Fluid Culture - Final, Complete No growth 07/26/18 MRSA Screen - Final, Complete MRSA not isolated 07/23/18 Urine Culture - Final, Complete NO GROWTH Assessment/Plan Assessment/Plan Assess & Plan/Chief Complaint 1. Acute Bilateral Pneumonia with Bilateral Pleural Effusions--improved 2. Hypoxia--oxygen sats stable on NC 3. COPD--stable 4. Influenza A--treated 5. Hypertension--stable 6. Diabetes mellitus--stable 7. Back Pain--on lidocaine patches and dose tylenol routinely with tramadol 8. Anemia--transfuse 1u pRBCs today 9. Acute on Chronic Renal Insufficiency--renal US negative, Dr. Ceja started more aggressive IVFs and will monitor respiratory status and recheck BUN/Cr in AM, I discussed the worsening renal function with the patient and told her she would need to see nephrology on discharge Clinical Quality Measures Admission Status Admission Dx 1. Acute Bilateral Pneumonia--cover with maxipime due to recent hospital stay 2. Acute Hypoxia--on oxygen and SVNs 3. Influenza A--on tamiflu 4. Hypertension--restart coreg 5. Diabetes mellitus--insulin requiring--start levemir and SSI 6. Anoxic Encephalopathy--stable DVT/VTE Risk/Contraindication: Risk Factor Score Per Nursin RFS Level Per Nursing on Admit: 4+=Very High MIRELA LYLE DO Aug 04, 2018 18:52
[2018-08-04 19:15] VITALS: BP 162/89
[2018-08-04] MEDS: inSUlin DETERMIR 1 UNIT/0.01 ML (LEVEMIR) CHARGE PER UNIT SQ SCH (21:10)
[2018-08-04] MEDS: LIDOCAINE PATCH REMOVAL TP SCH (21:11)
[2018-08-05] VITALS: BP 145/74
[2018-08-05] MEDS: D5 NS 1000 ML IV SOLUTION 1,000 ML IV SCH ×2 (00:34→07:30)
[2018-08-05 03:36] LABS: BASOPHILS % (AUTO) 0 % (0-10); EOSINOPHILS # (AUTO) 0.1 10^3/uL (0.0-0.3); EOSINOPHILS % (AUTO) 1 % (0-10); HEMATOCRIT 28 % (35-52); HEMOGLOBIN 8.9 G/DL (11.5-16.0); LYMPHOCYTES % (AUTO) 25 % (12-44); MEAN CORPUSCULAR HEMOGLOBIN 29 PG (25-34); MEAN CORPUSCULAR HGB CONC 32 G/DL (32-36); MEAN CORPUSCULAR VOLUME 91 FL (80-99); MEAN PLATELET VOLUME 9.5 FL (7.4-10.4); MONOCYTES # (AUTO) 0.6 X 10^3 (0.0-1.0); MONOCYTES % (AUTO) 7 % (0-12); NEUTROPHILS # (AUTO) 5.5 X 10^3 (1.8-7.8); NEUTROPHILS % (AUTO) 68 % (42-75); PLATELET COUNT 451 10^3/uL (130-400); RED CELL DISTRIBUTION WIDTH 14.9 % (10.0-14.5); WHITE BLOOD COUNT 8.1 10^3/uL (4.3-11.0)
[2018-08-05 03:57] LABS: CREATININE SERUM 2.08 MG/DL (0.60-1.30); MAGNESIUM 1.7 MG/DL (1.8-2.4); PHOSPHORUS 5.8 MG/DL (2.3-4.7); POTASSIUM 4.9 MMOL/L (3.6-5.0)
[2018-08-05] MEDS: inSUlin ASPART (NovoLOG) 1 UNIT/0.01 ML (CHARGE PER UNIT) SC SCH ×4 (05:15→21:21)
[2018-08-05] MEDS: METOCLOPRAMIDE INJ 10 MG/2 ML (REGLAN) IVP SCH ×3 (05:22→18:17)
--- NOTE | 2018-08-05 06:33 | Pulmonary Progress Note ---
Subjective Time Seen by a Provider: 06:32 Subjective/Events-last exam Pt has no complaints. Sepsis Event Evaluation Height, Weight, BMI Height: 5'2.00" Weight: 202lbs. 9.0oz. 91.142547rf; 35.9 BMI Method:Stated Focused Exam Lactate Level 08/04/18 07:36: Lactic Acid Level 0.61 Exam Exam Vital Signs Date Time Temp Pulse Resp B/P (MAP) Pulse Ox O2 Delivery O2 Flow Rate FiO2 08/05/18 00:00 97.6 76 18 145/74 (97) 97 Room Air 08/04/18 21:00 Room Air 08/04/18 19:15 97.2 81 18 162/89 96 Room Air 08/04/18 18:20 97.8 08/04/18 16:56 97.8 75 163/89 Room Air 08/04/18 16:34 97.8 75 17 150/85 Room Air 08/04/18 16:09 97.8 75 17 150/85 (106) 96 Room Air 08/04/18 08:00 Room Air 08/04/18 08:00 97.4 70 20 168/108 (128) 96 Room Air I & O 08/05/18 07:00 Intake Total 2330 ml Balance 2330 ml Height & Weight Height: 5'2.00" Weight: 202lbs. 9.0oz. 91.160648xh; 35.9 BMI Method:Stated General Appearance: No Apparent Distress HEENT: Normal ENT Inspection Neck: Supple Respiratory: Lungs Clear, Decreased Breath Sounds Cardiovascular: Regular Rate, Rhythm Capillary Refill: Less Than 3 Seconds Gastrointestinal: normal bowel sounds, non tender, soft Extremity: Non Tender, No Calf Tenderness, No Pedal Edema Neurologic/Psychiatric: Alert, Oriented x3 Skin: Warm/Dry Results Lab Laboratory Tests 08/04/18 06:40 08/05/18 03:25 Assessment/Plan Assessment/Plan bilateral pneumonia -improving -D/C Omnicef -Douglas cultures neg thus far Pulmonary edema with exudative pleural effusions bilaterally. -S/P bilateral Chest tubes- are d/c'd Renal failure - -US of kidneys is negative -Will repeat labs -IVF D5NS - going at 150cc/hr -monitor metabolic acidosis -IVF Hx of Anoxic encephalopathy Influenza A -s/p Tamiflu WHITNEY HOLLOWAY DO Aug 05, 2018 06:33
[2018-08-05] MEDS: DULoxetine 30 MG (CYMBALTA) CAP PO SCH ×2 (08:55→21:20)
[2018-08-05] MEDS: ACETAMINOPHEN 325 MG TABLET PO SCH ×4 (08:55→21:20)
[2018-08-05] MEDS: CARVEDILOL 12.5 MG (COREG) TABLET PO SCH ×2 (08:55→21:21)
[2018-08-05] MEDS: VITAMIN D3 5,000 UNITS (CHOLECALCIFEROL ) CAPSULE PO SCH (08:55)
[2018-08-05] MEDS: PANTOPRAZOLE 40 MG (PROTONIX) TAB PO SCH (08:55)
[2018-08-05] MEDS: LIDOCAINE 4% (SALONPAS) PATCH TOP SCH (08:56)
--- NOTE | 2018-08-05 09:42 | Diagnostic Imaging Report ---
INDICATION: Shortness of breath, back pain COMPARISON: 08/04/2018 FINDINGS: Perihilar infiltrates and pulmonary opacities unchanged. Pleural fluid greater left present having decreased on the right in the interim. No pneumothorax. IMPRESSION: Reduction in right-sided pleural fluid volume. No pneumothorax or other change. Dictated by: Dictated on workstation # [id number]
[2018-08-05] MEDS: fluCOnazole (DIFLUCAN) 100 MG TAB PO SCH (13:38)
[2018-08-05 15:00] LABS: BILIRUBIN,URINE NEGATIVE (NEGATIVE); CLARITY,URINE VERY CLOUDY; COLOR,URINE YELLOW; GLUCOSE, URINE (UA) NEGATIVE (NEGATIVE); KETONES,URINE NEGATIVE (NEGATIVE); LEUKOCYTE ESTERASE ,URINE 3+ (NEGATIVE); NITRITE,URINE NEGATIVE (NEGATIVE); PH,URINE 6 (5-9); PROTEIN,URINE 4+ (NEGATIVE); UROBILINOGEN,URINE NORMAL (NORMAL)
[2018-08-05 15:15] LABS: BACTERIA,URINE MODERATE /HPF; RBC,URINE 50-100 /HPF; WBC,URINE TNTC /HPF
[2018-08-05 16:00] VITALS: BP 134/106
[2018-08-05] MEDS ORDERED: FUROSEMIDE 40 MG/4 ML INJ (LASIX) IVP NR (16:00)
[2018-08-05 16:28] LABS: ABG BASE EXCESS -7.1 MMOL/L (-2.5-2.5); ABG OXYGEN SATURATION 94 % (94-100); ABG PCO2 38 MMHG (35-45); ABG PO2 69 MMHG (79-93); ABG TCO2 19.4 MMOL/L (21.0-31.0)
[2018-08-05 16:39] LABS: ALLENS TEST POSITIVE
[2018-08-05 16:44] LABS: INSPIRED O2 ROOM AIR; PATIENT TEMP 97.6; VENTILATOR NO
[2018-08-05] MEDS ORDERED: MAGNESIUM 1 GM/100 ML IVPB 100 ML IV NR (17:00)
[2018-08-05] MEDS ORDERED: SODIUM BICARB 8.4% 50 MEQ/50 ML (ABBOTT) SYR IV NR (17:00)
[2018-08-05] MEDS: MEROPENEM 500 MG in WATER (STERILE) FOR INJECTION 10 ML IV SCH (17:22)
--- NOTE | 2018-08-05 17:35 | Progress Note (SOAP) ---
Subjective Date Seen by a Provider: Aug 05, 2018 Time Seen by a Provider: 08:30 Subjective/Events-last exam Fwup pneumonia with pleural effusions, hypoxia, influenza A, COPD, uncontrolled DM--insulin requiring, HTN, anoxic encephalopathy, acute on chronic renal insufficiency. More short of air today and worsening back pain. Focused Exam Lactate Level 08/04/18 07:36: Lactic Acid Level 0.61 08/05/18 16:15: Lactic Acid Level 0.76 Lactic Acid Level Laboratory Tests Test 08/05/18 16:15 Lactic Acid Level 0.76 MMOL/L (0.50-2.00) Objective Exam Vital Signs Date Time Temp Pulse Resp B/P (MAP) Pulse Ox O2 Delivery O2 Flow Rate FiO2 08/05/18 08:45 95 Room Air 2.00 08/05/18 08:00 97.4 86 22 95 Room Air 08/05/18 00:00 97.6 76 18 145/74 (97) 97 Room Air 08/04/18 21:00 Room Air 08/04/18 19:15 97.2 81 18 162/89 96 Room Air 08/04/18 18:20 97.8 I & O 08/05/18 07:00 Intake Total 2330 ml Balance 2330 ml Capillary Refill : Less Than 3 SecondsLess Than 3 Seconds General Appearance: Mild Distress Neck: Supple Respiratory: Lungs Clear, Decreased Breath Sounds Cardiovascular: Regular Rate, Rhythm Gastrointestinal: normal bowel sounds, non tender, soft Extremity: Non Tender, No Calf Tenderness, No Pedal Edema Neurologic/Psychiatric: Alert, Oriented x3 Results Lab Laboratory Tests 08/04/18 20:50: Glucometer 115H 08/05/18 03:25: White Blood Count 8.1, Red Blood Count 3.03L, Hemoglobin 8.9L, Hematocrit 28L, Mean Corpuscular Volume 91, Mean Corpuscular Hemoglobin 29, Mean Corpuscular Hemoglobin Concent 32, Red Cell Distribution Width 14.9H, Platelet Count 451H, Mean Platelet Volume 9.5, Neutrophils (%) (Auto) 68, Lymphocytes (%) (Auto) 25, Monocytes (%) (Auto) 7, Eosinophils (%) (Auto) 1, Basophils (%) (Auto) 0, Neutrophils # (Auto) 5.5, Lymphocytes # (Auto) 2.0, Monocytes # (Auto) 0.6, Eosinophils # (Auto) 0.1, Basophils # (Auto) 0.0, Sodium Level 133L, Potassium Level 4.9, Chloride Level 109H, Carbon Dioxide Level 16L, Anion Gap 8, Blood Urea Nitrogen 41H, Creatinine 2.08H, Estimat Glomerular Filtration Rate 25, BUN/ Creatinine Ratio 20, Glucose Level 134H, Calcium Level 8.0L, Phosphorus Level 5.8H, Magnesium Level 1.7L 08/05/18 09:15: B-Type Natriuretic Peptide 536.9H 08/05/18 12:09: Glucometer 149H 08/05/18 14:50: Urine Color YELLOW, Urine Clarity VERY CLOUDYH, Urine pH 6, Urine Specific [place] 1.015L, Urine Protein 4+, Urine Glucose (UA) NEGATIVE, Urine Ketones NEGATIVE, Urine Nitrite NEGATIVE, Urine Bilirubin NEGATIVE, Urine Urobilinogen NORMAL, Urine Leukocyte Esterase 3+H, Urine RBC (Auto) 5+H, Urine RBC 50-100H, Urine WBC TNTCH, Urine Squamous Epithelial Cells 10-25H, Urine Crystals NONE, Urine Bacteria MODERATEH, Urine Casts NONE, Urine Mucus NEGATIVE, Urine Culture Indicated YES 08/05/18 16:09: Glucometer 142H 08/05/18 16:15: Lactic Acid Level 0.76, Troponin I < 0.028 08/05/18 16:20: Blood Gas Puncture Site RIGHT RADIAL, Blood Gas Patient Temperature 97.6, Arterial Blood pH 7.30*L, Arterial Blood Partial Pressure CO2 38, Arterial Blood Partial Pressure O2 69L, Arterial Blood HCO3 18L, Arterial Blood Total CO2 19.4L, Arterial Blood Oxygen Saturation 94, Arterial Blood Base Excess -7.1L , Dave Test POSITIVE, Blood Gas Ventilator Setting NO, Blood Gas Inspired Oxygen ROOM AIR Microbiology 07/23/18 Blood Culture - Final, Complete No growth 07/27/18 Gram Stain - Final, Complete 07/27/18 Body Fluid Culture - Final, Complete No growth 07/26/18 MRSA Screen - Final, Complete MRSA not isolated 07/23/18 Urine Culture - Final, Complete NO GROWTH Assessment/Plan Assessment/Plan Assess & Plan/Chief Complaint 1. Acute Bilateral Pneumonia with Bilateral Pleural Effusions with worsening shortness of air--Check BNP and CXR now 2. Hypoxia--oxygen sats stable on RA 3. COPD--stable 4. Influenza A--treated 5. Hypertension--stable 6. Diabetes mellitus--stable 7. Back Pain--on lidocaine patches and dose tylenol routinely with tramadol 8. Anemia--improved after transfusion 9. Acute on Chronic Renal Insufficiency--renal US negative, Cr still 2, check UA Clinical Quality Measures Admission Status Admission Dx 1. Acute Bilateral Pneumonia--cover with maxipime due to recent hospital stay 2. Acute Hypoxia--on oxygen and SVNs 3. Influenza A--on tamiflu 4. Hypertension--restart coreg 5. Diabetes mellitus--insulin requiring--start levemir and SSI 6. Anoxic Encephalopathy--stable DVT/VTE Risk/Contraindication: Risk Factor Score Per Nursin RFS Level Per Nursing on Admit: 4+=Very High MIRELA LYLE DO Aug 05, 2018 17:35
[2018-08-05] MEDS: LIDOCAINE PATCH REMOVAL TP SCH (21:21)
[2018-08-05] MEDS: inSUlin DETERMIR 1 UNIT/0.01 ML (LEVEMIR) CHARGE PER UNIT SQ SCH (21:21)
--- NOTE | 2018-08-05 23:09 | NUR ---
PT WAS HYPERTENSIVE WITH BP OF 228/135 AFTER BEING RECHECKED. THIS RN CALLED DR LYLE AND RECEIVED TELEPHONE ORDER FOR IMDUR 30 MG PO ONCE TIME DOSE, AND 1 MG MORPHINE.
[2018-08-05] MEDS ORDERED: ISOSORBIDE MONONITRATE 30 MG (IMDUR) TAB PO ONE (23:15)
[2018-08-05] MEDS: morphine INJ 4 MG/ML 1 ML (VIAL/SYRINGE) IVP PRN (23:33)
[2018-08-06] MEDS: METOCLOPRAMIDE INJ 10 MG/2 ML (REGLAN) IVP SCH ×4 (00:12→18:05)
[2018-08-06 00:26] VITALS: BP 213/101
[2018-08-06] MEDS: MEROPENEM 500 MG in WATER (STERILE) FOR INJECTION 10 ML IV SCH ×3 (01:36→18:05)
[2018-08-06] MEDS: inSUlin ASPART (NovoLOG) 1 UNIT/0.01 ML (CHARGE PER UNIT) SC SCH ×4 (05:42→20:10)
[2018-08-06 08:00] VITALS: BP 164/102
[2018-08-06] MEDS: PANTOPRAZOLE 40 MG (PROTONIX) TAB PO SCH (08:04)
[2018-08-06] MEDS: DULoxetine 30 MG (CYMBALTA) CAP PO SCH ×2 (08:04→21:48)
[2018-08-06] MEDS: CARVEDILOL 12.5 MG (COREG) TABLET PO SCH ×2 (08:04→21:49)
[2018-08-06] MEDS: ACETAMINOPHEN 325 MG TABLET PO SCH ×4 (08:04→21:49)
[2018-08-06] MEDS: VITAMIN D3 5,000 UNITS (CHOLECALCIFEROL ) CAPSULE PO SCH (08:04)
[2018-08-06] MEDS: LIDOCAINE 4% (SALONPAS) PATCH TOP SCH (08:04)
--- NOTE | 2018-08-06 10:03 | NUR ---
PT EATING FAIRLY WELL AND WEIGHT STABLE. GLUCOSE CONTROLLED, BUT BUN & CR ARE WORSENING. CONT CURRENT DIET.
[2018-08-06 11:47] LABS: BASOPHILS % (AUTO) 0 % (0-10); EOSINOPHILS # (AUTO) 0.1 10^3/uL (0.0-0.3); EOSINOPHILS % (AUTO) 1 % (0-10); HEMATOCRIT 25 % (35-52); HEMOGLOBIN 8.3 G/DL (11.5-16.0); LYMPHOCYTES # (AUTO) 1.6 X 10^3 (1.0-4.0); LYMPHOCYTES % (AUTO) 22 % (12-44); MEAN CORPUSCULAR HEMOGLOBIN 30 PG (25-34); MEAN CORPUSCULAR HGB CONC 33 G/DL (32-36); MEAN CORPUSCULAR VOLUME 91 FL (80-99); MEAN PLATELET VOLUME 9.1 FL (7.4-10.4); MONOCYTES # (AUTO) 0.5 X 10^3 (0.0-1.0); MONOCYTES % (AUTO) 7 % (0-12); NEUTROPHILS # (AUTO) 5.1 X 10^3 (1.8-7.8); NEUTROPHILS % (AUTO) 70 % (42-75); PLATELET COUNT 422 10^3/uL (130-400); RED CELL DISTRIBUTION WIDTH 15.1 % (10.0-14.5); WHITE BLOOD COUNT 7.3 10^3/uL (4.3-11.0)
[2018-08-06 12:10] LABS: ALANINE AMINOTRANSFERASE < 6 U/L (0-55); ALKALINE PHOSPHATASE 97 U/L (40-136); BILIRUBIN,TOTAL 0.3 MG/DL (0.1-1.0); BUN/CREATININE RATIO 20; CARBON DIOXIDE 18 MMOL/L (21-32); CHLORIDE 108 MMOL/L (98-107); CREATININE SERUM 2.08 MG/DL (0.60-1.30); GFR ESTIMATED 25; GLUCOSE 136 MG/DL (70-105); POTASSIUM 4.9 MMOL/L (3.6-5.0); SODIUM 133 MMOL/L (135-145); TOTAL PROTEIN 6.4 GM/DL (6.4-8.2)
[2018-08-06] MEDS: fluCOnazole (DIFLUCAN) 100 MG TAB PO SCH (12:24)
--- NOTE | 2018-08-06 15:00 | NUR ---
REPORT RECEIVED FROM SHELBY REVELES. THIS RN WILL ASSUME PT CARE AT THIS TIME.
[2018-08-06 16:04] VITALS: BP 200/108
--- NOTE | 2018-08-06 17:13 | Progress Note (SOAP) ---
Subjective Date Seen by a Provider: Aug 06, 2018 Time Seen by a Provider: 08:35 Subjective/Events-last exam Fwup pneumonia with pleural effusions, hypoxia, influenza A, COPD, uncontrolled DM--insulin requiring, HTN, anoxic encephalopathy, acute on chronic renal insufficiency. Hypertensive urgency last night and this morning. Not as short of air. Focused Exam Lactate Level 08/04/18 07:36: Lactic Acid Level 0.61 08/05/18 16:15: Lactic Acid Level 0.76 Objective Exam Vital Signs Date Time Temp Pulse Resp B/P (MAP) Pulse Ox O2 Delivery O2 Flow Rate FiO2 08/06/18 16:04 97.3 76 14 200/108 (138) 95 Room Air 08/06/18 08:45 Room Air 08/06/18 08:00 97.3 79 18 164/102 (122) 96 Room Air 08/06/18 02:54 Room Air 08/06/18 00:26 97.0 85 18 213/101 (138) 94 Room Air 08/05/18 21:00 Room Air I & O 08/06/18 07:00 Intake Total 830 ml Balance 830 ml Capillary Refill : Less Than 3 SecondsLess Than 3 Seconds General Appearance: Mild Distress Neck: Supple Respiratory: Lungs Clear, Decreased Breath Sounds Cardiovascular: Regular Rate, Rhythm, Systolic Murmur, Gallop/S4 Gastrointestinal: normal bowel sounds, non tender, soft Extremity: Non Tender, No Calf Tenderness Neurologic/Psychiatric: Alert Skin: Warm/Dry Results Lab Laboratory Tests 08/05/18 20:01: Glucometer 135H 08/06/18 05:38: Glucometer 124H 08/06/18 10:55: Glucometer 133H 08/06/18 11:35: White Blood Count 7.3, Red Blood Count 2.78L, Hemoglobin 8.3L, Hematocrit 25L, Mean Corpuscular Volume 91, Mean Corpuscular Hemoglobin 30, Mean Corpuscular Hemoglobin Concent 33, Red Cell Distribution Width 15.1H, Platelet Count 422H, Mean Platelet Volume 9.1, Neutrophils (%) (Auto) 70, Lymphocytes (%) (Auto) 22, Monocytes (%) (Auto) 7, Eosinophils (%) (Auto) 1, Basophils (%) (Auto) 0, Neutrophils # (Auto) 5.1, Lymphocytes # (Auto) 1.6, Monocytes # (Auto) 0.5, Eosinophils # (Auto) 0.1, Basophils # (Auto) 0.0, Sodium Level 133L, Potassium Level 4.9, Chloride Level 108H, Carbon Dioxide Level 18L, Anion Gap 7, Blood Urea Nitrogen 42H, Creatinine 2.08H, Estimat Glomerular Filtration Rate 25, BUN/ Creatinine Ratio 20, Glucose Level 136H, Calcium Level 8.0L, Corrected Calcium 9.6, Total Bilirubin 0.3, Aspartate Amino Transf (AST/SGOT) 10, Alanine Aminotransferase (ALT/SGPT) < 6, Alkaline Phosphatase 97, Total Protein 6.4, Albumin 2.0L 08/06/18 16:03: Glucometer 157H Microbiology 07/23/18 Blood Culture - Final, Complete No growth 07/27/18 Gram Stain - Final, Complete 07/27/18 Body Fluid Culture - Final, Complete No growth 07/26/18 MRSA Screen - Final, Complete MRSA not isolated 08/05/18 Urine Culture - Final, Complete NO GROWTH Assessment/Plan Assessment/Plan Assess & Plan/Chief Complaint 1. Acute Bilateral Pneumonia with Bilateral Pleural Effusions with worsening shortness of air--CXR still shows infiltrates and pleural effusion--meropenem started 2. Hypoxia--oxygen sats stable on RA 3. COPD--stable 4. Influenza A--treated 5. Hypertension--stable 6. Diabetes mellitus--stable 7. Back Pain--on lidocaine patches and dose tylenol routinely but will hold tramadol due to lethargy 8. Anemia--improved after transfusion 9. Acute on Chronic Renal Insufficiency--ongoing 10. Hypertensive Urgency--Add Hydralazine, Check 2-D ECHO Clinical Quality Measures Admission Status Admission Dx 1. Acute Bilateral Pneumonia--cover with maxipime due to recent hospital stay 2. Acute Hypoxia--on oxygen and SVNs 3. Influenza A--on tamiflu 4. Hypertension--restart coreg 5. Diabetes mellitus--insulin requiring--start levemir and SSI 6. Anoxic Encephalopathy--stable DVT/VTE Risk/Contraindication: Risk Factor Score Per Nursin RFS Level Per Nursing on Admit: 4+=Very High MIRELA LYLE DO Aug 06, 2018 17:13
[2018-08-06] MEDS ORDERED: amLODIPine 5 MG (NORVASC) TAB PO NR (17:44)
[2018-08-06] MEDS: inSUlin DETERMIR 1 UNIT/0.01 ML (LEVEMIR) CHARGE PER UNIT SQ SCH (21:48)
[2018-08-06] MEDS: LIDOCAINE PATCH REMOVAL TP SCH (21:50)
[2018-08-06] MEDS: morphine INJ 4 MG/ML 1 ML (VIAL/SYRINGE) IVP PRN (22:53)
[2018-08-07 00:05] VITALS: BP 175/101
[2018-08-07] MEDS: METOCLOPRAMIDE INJ 10 MG/2 ML (REGLAN) IVP SCH ×3 (00:16→11:40)
[2018-08-07] MEDS: MEROPENEM 500 MG in WATER (STERILE) FOR INJECTION 10 ML IV SCH ×3 (02:10→18:43)
[2018-08-07] MEDS: inSUlin ASPART (NovoLOG) 1 UNIT/0.01 ML (CHARGE PER UNIT) SC SCH ×4 (05:46→21:54)
[2018-08-07 06:02] LABS: BASOPHILS % (AUTO) 0 % (0-10); EOSINOPHILS # (AUTO) 0.1 10^3/uL (0.0-0.3); EOSINOPHILS % (AUTO) 1 % (0-10); HEMATOCRIT 27 % (35-52); HEMOGLOBIN 8.8 G/DL (11.5-16.0); LYMPHOCYTES # (AUTO) 1.9 X 10^3 (1.0-4.0); LYMPHOCYTES % (AUTO) 27 % (12-44); MEAN CORPUSCULAR HEMOGLOBIN 29 PG (25-34); MEAN CORPUSCULAR HGB CONC 32 G/DL (32-36); MEAN CORPUSCULAR VOLUME 91 FL (80-99); MEAN PLATELET VOLUME 9.2 FL (7.4-10.4); MONOCYTES # (AUTO) 0.5 X 10^3 (0.0-1.0); MONOCYTES % (AUTO) 7 % (0-12); NEUTROPHILS # (AUTO) 4.5 X 10^3 (1.8-7.8); NEUTROPHILS % (AUTO) 64 % (42-75); PLATELET COUNT 426 10^3/uL (130-400)
[2018-08-07 06:19] LABS: CALCIUM 8.1 MG/DL (8.5-10.1); CREATININE SERUM 2.06 MG/DL (0.60-1.30); POTASSIUM 4.7 MMOL/L (3.6-5.0)
--- NOTE | 2018-08-07 07:23 | Pulmonary Progress Note ---
Subjective Date Seen by a Provider: Aug 06, 2018 (late entry) Time Seen by a Provider: 07:22 Subjective/Events-last exam Pt has no compliants. No complications noted. Sepsis Event Evaluation Height, Weight, BMI Height: 5'2.00" Weight: 202lbs. 6.0oz. 91.941428aj; 35.9 BMI Method:Stated Focused Exam Lactate Level 08/04/18 07:36: Lactic Acid Level 0.61 08/05/18 16:15: Lactic Acid Level 0.76 Exam Exam Vital Signs Date Time Temp Pulse Resp B/P (MAP) Pulse Ox O2 Delivery O2 Flow Rate FiO2 08/07/18 00:05 97.6 83 16 175/101 (125) 97 08/06/18 20:15 Room Air 08/06/18 16:04 97.3 76 14 200/108 (138) 95 Room Air 08/06/18 08:45 Room Air 08/06/18 08:00 97.3 79 18 164/102 (122) 96 Room Air I & O 08/07/18 07:00 Intake Total 790 ml Balance 790 ml Height & Weight Height: 5'2.00" Weight: 202lbs. 6.0oz. 91.344203kx; 35.9 BMI Method:Stated General Appearance: No Apparent Distress, WD/WN HEENT: Normal ENT Inspection Neck: Supple Respiratory: Lungs Clear, Decreased Breath Sounds Cardiovascular: Regular Rate, Rhythm, Systolic Murmur, Gallop/S4 Capillary Refill: Less Than 3 Seconds Gastrointestinal: normal bowel sounds, non tender, soft Extremity: Non Tender, No Calf Tenderness Neurologic/Psychiatric: Alert Skin: Warm/Dry Results Lab Laboratory Tests 08/06/18 11:35 08/07/18 05:40 Assessment/Plan Assessment/Plan bilateral pneumonia -improving -Douglas cultures neg thus far Pulmonary edema with exudative pleural effusions bilaterally. -S/P bilateral Chest tubes- are d/c'd Renal failure - -monitor metabolic acidosis -IVF Hx of Anoxic encephalopathy Influenza A -s/p Tamiflu WHITNEY HOLLOWAY DO Aug 07, 2018 07:23
--- NOTE | 2018-08-07 07:24 | Pulmonary Progress Note ---
Subjective Time Seen by a Provider: 07:24 Subjective/Events-last exam No complications noted. Sepsis Event Evaluation Height, Weight, BMI Height: 5'2.00" Weight: 202lbs. 6.0oz. 91.917760dc; 35.9 BMI Method:Stated Focused Exam Lactate Level 08/04/18 07:36: Lactic Acid Level 0.61 08/05/18 16:15: Lactic Acid Level 0.76 Exam Exam Vital Signs Date Time Temp Pulse Resp B/P (MAP) Pulse Ox O2 Delivery O2 Flow Rate FiO2 08/07/18 00:05 97.6 83 16 175/101 (125) 97 08/06/18 20:15 Room Air 08/06/18 16:04 97.3 76 14 200/108 (138) 95 Room Air 08/06/18 08:45 Room Air 08/06/18 08:00 97.3 79 18 164/102 (122) 96 Room Air I & O 08/07/18 07:00 Intake Total 790 ml Balance 790 ml Height & Weight Height: 5'2.00" Weight: 202lbs. 6.0oz. 91.298364yy; 35.9 BMI Method:Stated General Appearance: No Apparent Distress, WD/WN HEENT: Normal ENT Inspection Neck: Supple Respiratory: Lungs Clear, Decreased Breath Sounds Cardiovascular: Regular Rate, Rhythm, Systolic Murmur, Gallop/S4 Capillary Refill: Less Than 3 Seconds Gastrointestinal: normal bowel sounds, non tender, soft Extremity: Non Tender, No Calf Tenderness Neurologic/Psychiatric: Alert Skin: Warm/Dry Results Lab Laboratory Tests 08/06/18 11:35 08/07/18 05:40 Assessment/Plan Assessment/Plan bilateral pneumonia -improving -D/C Omnicef if ok with Dr. Haider -Douglas cultures neg thus far Pulmonary edema with exudative pleural effusions bilaterally. -S/P bilateral Chest tubes- are d/c'd Renal failure - -monitor metabolic acidosis -IVF Hx of Anoxic encephalopathy Influenza A -s/p Tamiflu WHITNEY HOLLOWAY DO Aug 07, 2018 07:24
[2018-08-07 08:02] VITALS: BP 173/109
[2018-08-07 08:06] VITALS: BP 185/119
--- NOTE | 2018-08-07 08:14 | NUR ---
Notified Dr. Haider of B/P, scheduled meds given, & that pt is oriented to self, birthday, location, the names of her children, grandchildren, & remembered this RN when took care of pt when she was on rehab unit severall months ago, but, pt, instead of answering other questions, pt repeats the question. Pt did this also when RN dialed [phone] for pt to order breakfast.
[2018-08-07] MEDS: DULoxetine 30 MG (CYMBALTA) CAP PO SCH (08:17)
[2018-08-07] MEDS: ACETAMINOPHEN 325 MG TABLET PO SCH ×2 (08:18→12:17)
[2018-08-07] MEDS: CARVEDILOL 12.5 MG (COREG) TABLET PO SCH ×2 (08:18→21:55)
[2018-08-07] MEDS: PANTOPRAZOLE 40 MG (PROTONIX) TAB PO SCH (08:18)
[2018-08-07] MEDS: LIDOCAINE 4% (SALONPAS) PATCH TOP SCH (08:19)
[2018-08-07] MEDS ORDERED: amLODIPine 5 MG (NORVASC) TAB PO SCH (09:00)
--- NOTE | 2018-08-07 09:28 | Diagnostic Imaging Report ---
Clinical indication: Patient with confusion since this morning. Patient has repeating symptoms since. Exam: Axial CT scan of the brain performed without IV contrast. Comparison: Head CT without and with IV contrast dated 06/05/2018. Findings: There is no evidence of acute cerebral infarct, intracranial hemorrhage, or gross mass effect. The brain parenchymal volume appears appropriate for patient's age. 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 There is normal ruelas-white matter distinction. There is no significant midline shift or herniation. There is no evidence of hydrocephalus. The basal cisterns are unremarkable. The skull, extracranial soft tissue, and orbits are unremarkable. There is incompletely imaged air-fluid level and mucosal thickening in the left maxillary sinus again noted. Temporal bones show no significant abnormality. Impression: 1: Stable CT scan of brain with no evidence of acute intracranial process. 2: Stable small area of chronic infarct involving the left cerebellum. 3: Again noted left maxillary sinusitis. Dictated by: Dictated on workstation # [id number]
[2018-08-07] MEDS: VITAMIN D3 5,000 UNITS (CHOLECALCIFEROL ) CAPSULE PO SCH (09:43)
--- NOTE | 2018-08-07 09:58 | Diagnostic Imaging Report ---
Indication: Shortness of breath. Comparison with 08/05/2018. Findings: There continues to be rather dense bilateral perihilar infiltrates. Mild infiltrates noted throughout the periphery of the lungs as well. There is continued decrease in pleural effusion. Heart size is unchanged and mildly enlarged. No pneumothorax. Port-A-Cath on the right unchanged. IMPRESSION: Persistent bilateral perihilar infiltrates with slight decrease in right pleural effusion. Dictated by: Dictated on workstation # [id number]
--- NOTE | 2018-08-07 10:52 | Consultation-Cardiology ---
HPI-Cardiology Cardiology Consultation: Date of Consultation 08/07/18 Time Seen by a Provider: 10:30 Date of Admission 07-23-18 Attending Physician Mirela Haider DO Admitting Physician Mirela Haider DO Consulting Physician JASON CASTREJON HPI: Chief Complaint: Uncontrolled hypertension Ms. Castaneda is a 52 year old female in [facility] who we have been asked to see d/t uncontrolled hypertension and c/o chest discomfort. She is a poor historian. Limited information can be obtained from pt. Review of chart has been done. She is lethargic during interview. She reports she is having chest pain, upon further questioning she reports it is chest wall pain which is worse with movement and palpation. She reports SOB. She reports abdominal discomfort. Conversation is inappropriate and mumbling at times. She reports leg and feet pain. Review of Systems-Cardiology Review of Systems : No Other comments ROS to the extent that it could be obtained is as noted in the H&P HLR-Digjyi-Pcsyoo Hx Patient Social History Alcohol Use: Denies Use Recreational Drug Use: No Drug of Choice: opioids Smoking Status: Former Smoker Type Used: Cigarettes 2nd Hand Smoke Exposure: Yes Recent Foreign Travel: No Recent Infectious Disease Expo: No Immunizations Up To Date Tetanus Booster (TDap): Less than 5yrs Date of Pneumonia Vaccine: Jun 09, 2008 Date of Influenza Vaccine: Jun 28, 2017 Past Medical History PMH As described under Assessment. Family Medical History Family History: Completed stroke 19 FATHER Congenital heart disease 19 FATHER Diabetes mellitus 19 FATHER Myocardial infarction 19 FATHER Psychosocial problem 19 FATHER (depression) 19 MOTHER (depression) Respiratory disorder 19 MOTHER (copd) Allergies and Home Medications Allergies Coded Allergies: codeine (Verified Allergy, Mild, ITCHING, Pt has received Lortab in the past, 07/02/18) Sulfa (Sulfonamide Antibiotics) (Verified Allergy, Unknown, HIVES, 02/07/18) Home Medications Acetaminophen 650 Mg Tablet.er, 650 MG PO Q6H PRN for PAIN-MILD, (Reported) Albuterol Sulfate 18 Gm Hfa.aer.ad, 2 PUFF INH Q6H PRN for SHORTNESS OF BREATH, (Reported) Carvedilol 3.125 Mg Tablet, 3.125 MG PO BID, (Reported) Cefdinir 300 Mg Capsule, 300 MG PO BID, (Reported) 10 DAY SUPPLY FILLED 07-23-18 Duloxetine HCl 60 Mg Capsule.dr, 60 MG PO HS, (Reported) Fluconazole 100 Mg Tablet, 100 MG PO DAILY, (Reported) 7 DAY SUPPLY FILLED 07-23-18 Insulin Aspart 300 Units/3 Ml Solution, 5 UNITS SC TIDAC, (Reported) Insulin Detemir 100 Unit/1 Ml Insuln.pen, 25 UNITS SC HS, (Reported) Pregabalin 100 Mg Capsule, 100 MG PO HS, (Reported) Patient Home Medication List Home Medication List Reviewed: Yes Physical Exam-Cardiology Physical Exam Vital Signs/I&O 08/13/18 08/13/18 06:34 08:00 Temp 96.6 Pulse 77 73 Resp 20 B/P (MAP) 139/75 (96) 135/68 (90) Pulse Ox 97 O2 Delivery Room Air 08/13/18 00:00 Intake Total 1080 ml Balance 1080 ml Capillary Refill : Less Than 3 SecondsLess Than 3 Seconds Constitutional: other (Oriented to self only) HEENT: hearing is well preserved Neck: carotid pulses are 2 + bilaterally Respiratory: No accessory muscle use, No respiratory distress; chest expansion is symmetric, chest is bilaterally symmetric, other (diminished lower lobes bilat; poor inspiratory effort) Cardiovascular: No JVD; S1 and S2, other Gastrointestinal: soft, audible bowel sounds Extremities: swelling (mild bilat LE swelling) Neurologic/Psychiatric: other (moves extremities) Skin: No rash, No ulcerations Data Review Labs Laboratory Tests 08/12/18 16:33: Glucometer 242H 08/12/18 20:16: Glucometer 272H 08/13/18 05:45: White Blood Count 5.6, Red Blood Count 2.79L, Hemoglobin 8.3L, Hematocrit 25L, Mean Corpuscular Volume 89, Mean Corpuscular Hemoglobin 30, Mean Corpuscular Hemoglobin Concent 34, Red Cell Distribution Width 15.1H, Platelet Count 357, Mean Platelet Volume 9.1, Neutrophils (%) (Auto) 63, Lymphocytes (%) (Auto) 28, Monocytes (%) (Auto) 6, Eosinophils (%) (Auto) 3, Basophils (%) (Auto) 0, Neutrophils # (Auto) 3.6, Lymphocytes # (Auto) 1.6, Monocytes # (Auto) 0.3, Eosinophils # (Auto) 0.2, Basophils # (Auto) 0.0, Sodium Level 134L, Potassium Level 5.1H, Chloride Level 108H, Carbon Dioxide Level 18L, Anion Gap 8, Blood Urea Nitrogen 53H, Creatinine 2.95#H, Estimat Glomerular Filtration Rate 17, BUN /Creatinine Ratio 18, Glucose Level 176H, Calcium Level 8.0L, Corrected Calcium 9.4, Total Bilirubin 0.3, Aspartate Amino Transf (AST/SGOT) 11, Alanine Aminotransferase (ALT/SGPT) < 6, Alkaline Phosphatase 84, Total Protein 6.3L, Albumin 2.2L 08/13/18 05:51: Glucometer 195H 08/13/18 11:30: Glucometer 224H Microbiology 07/23/18 Blood Culture - Final, Complete No growth 07/27/18 Gram Stain - Final, Complete 07/27/18 Body Fluid Culture - Final, Complete No growth 07/26/18 MRSA Screen - Final, Complete MRSA not isolated 08/05/18 Urine Culture - Final, Complete YEAST Radiology NAME: CHEPE CASTANEDA [facility] REC#: [id number] PT STATUS: ADM IN : 1965 PHYSICIAN: MIRELA HAIDER DO ADMIT DATE: 07/23/18 Draft Date of Exam:08/07/18 CT HEAD WO Clinical indication: Patient with confusion since this morning. Patient has repeating symptoms since. Exam: Axial CT scan of the brain performed without IV contrast. Comparison: Head CT without and with IV contrast dated 06/05/2018. Findings: There is no evidence of acute cerebral infarct, intracranial hemorrhage, or gross mass effect. The brain parenchymal volume appears appropriate for patient's age. 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 There is normal ruelas-white matter distinction. There is no significant midline shift or herniation. There is no evidence of hydrocephalus. The basal cisterns are unremarkable. The skull, extracranial soft tissue, and orbits are unremarkable. There is incompletely imaged air-fluid level and mucosal thickening in the left maxillary sinus again noted. Temporal bones show no significant abnormality. Impression: 1: Stable CT scan of brain with no evidence of acute intracranial process. 2: Stable small area of chronic infarct involving the left cerebellum. 3: Again noted left maxillary sinusitis. Dictated on workstation # [id number] Dict: 08/07/18 0922 Trans: 08/07/18 0928 [id number] Interpreted by: REYNA MCCARTNEY MD Electronically signed by: NAME: CHEPE CASTANEDA [facility] REC#: [id number] PT STATUS: ADM IN : 1965 PHYSICIAN: WHITNEY BEASLEY DO ADMIT DATE: 07/23/18 Draft Date of Exam:08/07/18 CHEST 1 VIEW, AP/PA ONLY Indication: Shortness of breath. Comparison with 08/05/2018. Findings: There continues to be rather dense bilateral perihilar infiltrates. Mild infiltrates noted throughout the periphery of the lungs as well. There is continued decrease in pleural effusion. Heart size is unchanged and mildly enlarged. No pneumothorax. Port-A-Cath on the right unchanged. IMPRESSION: Persistent bilateral perihilar infiltrates with slight decrease in right pleural effusion. Dictated on workstation # [id number] Dict: 08/07/18 0853 Trans: 08/07/18 0958 [id number] [id number] Interpreted by: MICHELLE PARSONS MD Electronically signed by: A/P-Cardiology Assessment/Admission Diagnosis Uncontrolled hypertension Chest discomfort - reproducible with palpation Echocardiogram of 08-06-18 showed LVEF 55-65%. Grade 2 diastolic dysfunction. Mild to Mod TR. PASP [address] Morrow. Pneumonia - management per medical/pulmonary services Anemia of undetermined etiology Acute on chronic exacerbation of COPD Influenza A - management per medical services DM 2 Acute on Chronic Renal Insufficiency - worsening renal function Discussion and Recomendations Uncontrolled hypertension - not suitable candidate for SAI or ARB d/t worsening renal function Clinical Quality Measures DVT/VTE Risk/Contraindication: Risk Factor Score Per Nursin RFS Level Per Nursing on Admit: 4+=Very High JASON LYNCH Aug 07, 2018 10:52
--- NOTE | 2018-08-07 10:59 | Progress Note (SOAP) ---
Subjective Date Seen by a Provider: Aug 07, 2018 Time Seen by a Provider: 09:00 Subjective/Events-last exam Fwup pneumonia with pleural effusions, hypoxia, influenza A, COPD, uncontrolled DM--insulin requiring, HTN, anoxic encephalopathy, acute on chronic renal insufficiency. Blood pressure up again this morning and more confused. States she does have some shortness of air and some chest pain but I'm not certain if she is tracking what I am asking. Focused Exam Lactate Level 08/05/18 16:15: Lactic Acid Level 0.76 Objective Exam Vital Signs Date Time Temp Pulse Resp B/P (MAP) Pulse Ox O2 Delivery O2 Flow Rate FiO2 08/07/18 08:45 Room Air 08/07/18 08:06 77 185/119 (141) 08/07/18 08:02 74 20 173/109 (130) 97 Room Air 08/07/18 00:05 97.6 83 16 175/101 (125) 97 08/06/18 20:15 Room Air 08/06/18 16:04 97.3 76 14 200/108 (138) 95 Room Air I & O 08/07/18 07:00 Intake Total 890 ml Balance 890 ml Capillary Refill : Less Than 3 SecondsLess Than 3 Seconds General Appearance: No Apparent Distress Neck: Supple Respiratory: Decreased Breath Sounds Cardiovascular: Regular Rate, Rhythm Gastrointestinal: normal bowel sounds, non tender, soft Results Lab Laboratory Tests 08/06/18 10:55: Glucometer 133H 08/06/18 11:35: White Blood Count 7.3, Red Blood Count 2.78L, Hemoglobin 8.3L, Hematocrit 25L, Mean Corpuscular Volume 91, Mean Corpuscular Hemoglobin 30, Mean Corpuscular Hemoglobin Concent 33, Red Cell Distribution Width 15.1H, Platelet Count 422H, Mean Platelet Volume 9.1, Neutrophils (%) (Auto) 70, Lymphocytes (%) (Auto) 22, Monocytes (%) (Auto) 7, Eosinophils (%) (Auto) 1, Basophils (%) (Auto) 0, Neutrophils # (Auto) 5.1, Lymphocytes # (Auto) 1.6, Monocytes # (Auto) 0.5, Eosinophils # (Auto) 0.1, Basophils # (Auto) 0.0, Sodium Level 133L, Potassium Level 4.9, Chloride Level 108H, Carbon Dioxide Level 18L, Anion Gap 7, Blood Urea Nitrogen 42H, Creatinine 2.08H, Estimat Glomerular Filtration Rate 25, BUN/ Creatinine Ratio 20, Glucose Level 136H, Calcium Level 8.0L, Corrected Calcium 9.6, Total Bilirubin 0.3, Aspartate Amino Transf (AST/SGOT) 10, Alanine Aminotransferase (ALT/SGPT) < 6, Alkaline Phosphatase 97, Total Protein 6.4, Albumin 2.0L 08/06/18 16:03: Glucometer 157H 08/06/18 20:09: Glucometer 145H 08/07/18 05:40: White Blood Count 7.0, Red Blood Count 3.01L, Hemoglobin 8.8L, Hematocrit 27L, Mean Corpuscular Volume 91, Mean Corpuscular Hemoglobin 29, Mean Corpuscular Hemoglobin Concent 32, Red Cell Distribution Width 15.0H, Platelet Count 426H, Mean Platelet Volume 9.2, Neutrophils (%) (Auto) 64, Lymphocytes (%) (Auto) 27, Monocytes (%) (Auto) 7, Eosinophils (%) (Auto) 1, Basophils (%) (Auto) 0, Neutrophils # (Auto) 4.5, Lymphocytes # (Auto) 1.9, Monocytes # (Auto) 0.5, Eosinophils # (Auto) 0.1, Basophils # (Auto) 0.0, Sodium Level 134L, Potassium Level 4.7, Chloride Level 108H, Carbon Dioxide Level 18L, Anion Gap 8, Blood Urea Nitrogen 42H, Creatinine 2.06H, Estimat Glomerular Filtration Rate 25, BUN/ Creatinine Ratio 20, Glucose Level 83, Calcium Level 8.1L, B-Type Natriuretic Peptide 417.6H 08/07/18 05:41: Glucometer 91 Microbiology 07/23/18 Blood Culture - Final, Complete No growth 07/27/18 Gram Stain - Final, Complete 07/27/18 Body Fluid Culture - Final, Complete No growth 07/26/18 MRSA Screen - Final, Complete MRSA not isolated 08/05/18 Urine Culture - Final, Complete YEAST Assessment/Plan Assessment/Plan Assess & Plan/Chief Complaint 1. Acute Bilateral Pneumonia with Bilateral Pleural Effusions with worsening shortness of air--CXR still shows infiltrates and pleural effusion-on meropenem 2. Hypoxia--oxygen sats stable on RA 3. COPD--stable 4. Influenza A--treated 5. Hypertension--stable 6. Diabetes mellitus--stable 7. Back Pain--on lidocaine patches and dose tylenol routinely but will hold tramadol due to lethargy 8. Anemia--improved after transfusion 9. Acute on Chronic Renal Insufficiency--Cr still not coming down 10. Hypertensive Urgency--increase hydralazine, consult cardiology 11. Dyspnea/Chest Pain--VQ scan ordered as unable to do CT angiogram due to Cr , lovenox restarted at DVT prophylaxis dose 12. Confusion--stat CT of Head Clinical Quality Measures Admission Status Admission Dx 1. Acute Bilateral Pneumonia--cover with maxipime due to recent hospital stay 2. Acute Hypoxia--on oxygen and SVNs 3. Influenza A--on tamiflu 4. Hypertension--restart coreg 5. Diabetes mellitus--insulin requiring--start levemir and SSI 6. Anoxic Encephalopathy--stable DVT/VTE Risk/Contraindication: Risk Factor Score Per Nursin RFS Level Per Nursing on Admit: 4+=Very High MIRELA LYLE DO Aug 07, 2018 10:59
[2018-08-07 11:28] VITALS: BP 160/90
[2018-08-07] MEDS ORDERED: amLODIPine 5 MG (NORVASC) TAB PO NR (11:30)
[2018-08-07] MEDS: ENOXAPARIN 40 MG/0.4 ML (LOVENOX) SYR SC SCH ×2 (11:40→21:53)
[2018-08-07] MEDS: fluCOnazole (DIFLUCAN) 100 MG TAB PO SCH (11:41)
[2018-08-07 12:22] VITALS: BP 156/94
--- NOTE | 2018-08-07 14:32 | NUR ---
Spoke w johnie, Alla, & Amparo, they state Amparo was up here, walking pt, but, that they took her down for a test. Pt out of room at this time.
--- NOTE | 2018-08-07 14:39 | NUR ---
pt down having scan
--- NOTE | 2018-08-07 15:46 | NUR ---
DR. BEVERLY IN TALKING TO PT
[2018-08-07 16:06] VITALS: BP 162/97
--- NOTE | 2018-08-07 16:28 | NUR ---
Was told by another RN that pt walked to nursing desk & asked what she needed to do w this ? Pointing to her Rt upper [place] area. Pt had taken the clear drsg partially off, noted the edges rolled up. Removed the drsg & Paulino needle w no bleeding from site. This RN was in the w the pt next door when this happened.
--- NOTE | 2018-08-07 17:38 | Consultation-Cardiology ---
HPI-Cardiology Cardiology Consultation: Date of Consultation 08/07/18 Time Seen by a Provider: 16:00 Date of Admission Attending Physician Bailee Haider DO Admitting Physician Bailee Haider DO Consulting Physician TIERNEY BEVERLY MD, MA, FACP, FACC, FSCAI, CCDS Physician requesting consult: Dr Haider HPI: Chief Complaint: Reason for consultation: Chest discomfort and uncontrolled hypertension HPI Ms. Jolley is a 52 year old female whom we have been asked to see d/t uncontrolled hypertension and c/o chest discomfort. She is a poor historian. Limited information can be obtained from pt. Review of chart has been done. She is lethargic during interview. She reports she is having chest pain, upon further questioning she reports it is chest wall pain which is worse with movement and palpation. She reports SOB. She reports abdominal discomfort. Conversation is inappropriate and mumbling at times. She reports leg and feet pain. Review of Systems-Cardiology Review of Systems Constitutional: malaise, tiredness, other (pt seems to have poor memory and ROS is unreliable) Eyes: No vision change Ears/Nose/Throat: No nasal drainage, No recent hearing loss Respiratory: SOB with excertion Cardiovascular: chest pain (not able to describe in any detail: apparently sharp, lasting a few seconds, nonradiating, sometimes frequent, sometimes infrequent); No edema, No irregular heart rate, No syncope Gastrointestinal: No diarrhea, No nausea, No other Genitourinary: No dysuria, No hematuria, No urine frequency changes : No Musculoskeletal: back pain Skin: No rash, No ulcerations Psychiatric/Neurological: No focal weakness, No syncope Hematologic: No bleeding abnormalities LHR-Annypi-Uxtrkt Hx Patient Social History Alcohol Use: Denies Use Recreational Drug Use: No Drug of Choice: opioids Smoking Status: Former Smoker Type Used: Cigarettes 2nd Hand Smoke Exposure: Yes Recent Foreign Travel: No Recent Infectious Disease Expo: No Immunizations Up To Date Tetanus Booster (TDap): Less than 5yrs Date of Pneumonia Vaccine: Jun 09, 2008 Date of Influenza Vaccine: Jun 28, 2017 Past Medical History PMH As described under Assessment. Family Medical History Family History: Completed stroke 19 FATHER Congenital heart disease 19 FATHER Diabetes mellitus 19 FATHER Myocardial infarction 19 FATHER Psychosocial problem 19 FATHER (depression) 19 MOTHER (depression) Respiratory disorder 19 MOTHER (copd) Allergies and Home Medications Allergies Coded Allergies: codeine (Verified Allergy, Mild, ITCHING, Pt has received Lortab in the past, 07/02/18) Sulfa (Sulfonamide Antibiotics) (Verified Allergy, Unknown, HIVES, 02/07/18) Home Medications Acetaminophen 650 Mg Tablet.er, 650 MG PO Q6H PRN for PAIN-MILD, (Reported) Albuterol Sulfate 18 Gm Hfa.aer.ad, 2 PUFF INH Q6H PRN for SHORTNESS OF BREATH, (Reported) Carvedilol 3.125 Mg Tablet, 3.125 MG PO BID, (Reported) Cefdinir 300 Mg Capsule, 300 MG PO BID, (Reported) 10 DAY SUPPLY FILLED 07-23-18 Duloxetine HCl 60 Mg Capsule.dr, 60 MG PO HS, (Reported) Fluconazole 100 Mg Tablet, 100 MG PO DAILY, (Reported) 7 DAY SUPPLY FILLED 07-23-18 Insulin Aspart 300 Units/3 Ml Solution, 5 UNITS SC TIDAC, (Reported) Insulin Detemir 100 Unit/1 Ml Insuln.pen, 25 UNITS SC HS, (Reported) Pregabalin 100 Mg Capsule, 100 MG PO HS, (Reported) Patient Home Medication List Home Medication List Reviewed: Yes Physical Exam-Cardiology Physical Exam Vital Signs/I&O 08/07/18 08/07/18 08/07/18 08/07/18 08:02 08:06 08:45 11:02 Pulse 74 77 Resp 20 B/P (MAP) 173/109 (130) 185/119 (141) Pulse Ox 97 O2 Delivery Room Air Room Air Room Air 08/07/18 08/07/18 08/07/18 11:28 12:22 16:06 Pulse 65 Resp 19 B/P (MAP) 160/90 (113) 156/94 (114) 162/97 (118) Pulse Ox 98 O2 Delivery Room Air 08/07/18 00:00 Intake Total 790 ml Balance 790 ml Capillary Refill : Less Than 3 SecondsLess Than 3 Seconds Constitutional: other (Oriented to self only) HEENT: hearing is well preserved Neck: carotid pulses are 2 + bilaterally Respiratory: No accessory muscle use, No respiratory distress; chest expansion is symmetric, chest is bilaterally symmetric, other (diminished lower lobes bilat; poor inspiratory effort) Cardiovascular: No JVD; S1 and S2, other Gastrointestinal: soft, audible bowel sounds Extremities: swelling (mild bilat LE swelling) Neurologic/Psychiatric: other (moves extremities) Skin: No rash, No ulcerations Data Review Labs Laboratory Tests 08/06/18 20:09: Glucometer 145H 08/07/18 05:40: White Blood Count 7.0, Red Blood Count 3.01L, Hemoglobin 8.8L, Hematocrit 27L, Mean Corpuscular Volume 91, Mean Corpuscular Hemoglobin 29, Mean Corpuscular Hemoglobin Concent 32, Red Cell Distribution Width 15.0H, Platelet Count 426H, Mean Platelet Volume 9.2, Neutrophils (%) (Auto) 64, Lymphocytes (%) (Auto) 27, Monocytes (%) (Auto) 7, Eosinophils (%) (Auto) 1, Basophils (%) (Auto) 0, Neutrophils # (Auto) 4.5, Lymphocytes # (Auto) 1.9, Monocytes # (Auto) 0.5, Eosinophils # (Auto) 0.1, Basophils # (Auto) 0.0, Sodium Level 134L, Potassium Level 4.7, Chloride Level 108H, Carbon Dioxide Level 18L, Anion Gap 8, Blood Urea Nitrogen 42H, Creatinine 2.06H, Estimat Glomerular Filtration Rate 25, BUN/ Creatinine Ratio 20, Glucose Level 83, Calcium Level 8.1L, B-Type Natriuretic Peptide 417.6H 08/07/18 05:41: Glucometer 91 08/07/18 11:23: Glucometer 126H 08/07/18 16:26: Glucometer 169H Microbiology 07/23/18 Blood Culture - Final, Complete No growth 07/27/18 Gram Stain - Final, Complete 07/27/18 Body Fluid Culture - Final, Complete No growth 07/26/18 MRSA Screen - Final, Complete MRSA not isolated 08/05/18 Urine Culture - Final, Complete YEAST A/P-Cardiology Assessment/Admission Diagnosis Marked systemic hypertension, likely essential hypertension that seems to taking a malignant turn (worsening renal function) Marked pulmonary hypertension, suspected to be due to obesity-hypoventilation and DIANNA Chest discomfort - likely non-cardiac, reproducible with palpation Echocardiogram of 08-06-18 (Dr Morrow) showed LVEF 55-65%. Grade 2 diastolic dysfunction. Mild to Mod TR. PASP 79 mmHg Pneumonia - management per medical/pulmonary services Anemia of undetermined etiology Acute on chronic exacerbation of COPD Influenza A - management per medical services DM 2 Acute on chronic renal insufficiency - consider malignant hypertension Discussion and Recomendations * Augment antihypertensive meds (increase amlodipine and hydralazine; add doxazosin) * Treat DIANNA, if present * Cannot use ARB/SAI-inhib due to renal failure * Monitor labs closely * I discussed her case with Dr Haider this morning Clinical Quality Measures DVT/VTE Risk/Contraindication: Risk Factor Score Per Nursin RFS Level Per Nursing on Admit: 4+=Very High TIERNEY BEVERLY MD FACP FAC CCDS Aug 07, 2018 17:37
--- NOTE | 2018-08-07 18:00 | Diagnostic Imaging Report ---
EXAMINATION: Pulmonary ventilation and perfusion scan. INDICATION: Pulmonary hypertension. Shortness of breath. COMPARISON: Comparison is made with a chest radiograph from August 07, 2018. TECHNIQUE: Ventilation portion of the examination was performed after inhalation of 42.5 mCi of technetium-99m DTPA. Perfusion imaging acquired after intravenous administration of 5.45 mCi of technetium-99m MAA. FINDINGS: The ventilation portion of the examination demonstrates some central activity within the major airways as well as activity within the stomach. There is no focal ventilatory defect. There is photopenia related to the patient's prominent central pulmonary arteries. On perfusion imaging, similar central defect related to the pulmonary arteries is evident. There is otherwise no segmental defect present. IMPRESSION: 1. This is a low probability examination for acute pulmonary embolism but pulmonary arterial hypertension secondary to chronic thromboemboli is not excluded, if an appropriate clinical history. There is central bilateral hilar photopenia related to the patient's prominent pulmonary arteries and central pulmonary edema. Ventilation portion of the examination also demonstrates some central airway air trapping. Dictated by: Dictated on workstation # [id number]
[2018-08-07] MEDS: inSUlin DETERMIR 1 UNIT/0.01 ML (LEVEMIR) CHARGE PER UNIT SQ SCH (21:54)
[2018-08-07] MEDS: hydrALAZINE (APRESOLINE) 25 MG TAB PO SCH (21:54)
[2018-08-07] MEDS: LIDOCAINE PATCH REMOVAL TP SCH (21:55)
[2018-08-07] MEDS: doxAzosin 2 MG (CARDURA) TAB PO SCH (21:55)
[2018-08-08] VITALS: BP 169/72
[2018-08-08] MEDS: MEROPENEM 500 MG in WATER (STERILE) FOR INJECTION 10 ML IV SCH ×3 (01:50→17:20)
[2018-08-08 06:06] LABS: HEMOGLOBIN 8.5 G/DL (11.5-16.0); MEAN PLATELET VOLUME 8.9 FL (7.4-10.4); RED CELL DISTRIBUTION WIDTH 15.3 % (10.0-14.5); WHITE BLOOD COUNT 6.2 10^3/uL (4.3-11.0)
[2018-08-08] MEDS: inSUlin ASPART (NovoLOG) 1 UNIT/0.01 ML (CHARGE PER UNIT) SC SCH ×4 (06:24→21:44)
[2018-08-08 06:25] LABS: ALANINE AMINOTRANSFERASE < 6 U/L (0-55); ALKALINE PHOSPHATASE 95 U/L (40-136); BILIRUBIN,TOTAL 0.3 MG/DL (0.1-1.0); BUN/CREATININE RATIO 20; CARBON DIOXIDE 18 MMOL/L (21-32); CHLORIDE 109 MMOL/L (98-107); GFR ESTIMATED 22; GLUCOSE 70 MG/DL (70-105); MAGNESIUM 1.8 MG/DL (1.8-2.4); POTASSIUM 4.6 MMOL/L (3.6-5.0); SODIUM 133 MMOL/L (135-145); TOTAL PROTEIN 6.4 GM/DL (6.4-8.2)
[2018-08-08] MEDS: hydrALAZINE (APRESOLINE) 25 MG TAB PO SCH ×3 (06:41→21:37)
--- NOTE | 2018-08-08 07:08 | Pulmonary Progress Note ---
Subjective Time Seen by a Provider: 07:04 Subjective/Events-last exam No complications noted. Sepsis Event Evaluation Height, Weight, BMI Height: 5'2.00" Weight: 224lbs. 8.0oz. 101.647988us; 35.9 BMI Method:Stated Focused Exam Lactate Level 08/05/18 16:15: Lactic Acid Level 0.76 Exam Exam Vital Signs Date Time Temp Pulse Resp B/P (MAP) Pulse Ox O2 Delivery O2 Flow Rate FiO2 08/08/18 00:00 98.2 65 18 169/72 (104) 98 Room Air 08/07/18 21:00 Room Air 08/07/18 16:06 65 19 162/97 (118) 98 Room Air 08/07/18 12:22 156/94 (114) 08/07/18 11:28 160/90 (113) 08/07/18 11:02 Room Air 08/07/18 08:45 Room Air 08/07/18 08:06 77 185/119 (141) 08/07/18 08:02 74 20 173/109 (130) 97 Room Air I & O 08/08/18 07:00 Intake Total 2180 ml Balance 2180 ml Height & Weight Height: 5'2.00" Weight: 224lbs. 8.0oz. 101.292315dp; 35.9 BMI Method:Stated General Appearance: No Apparent Distress, WD/WN HEENT: Normal ENT Inspection Neck: Supple Respiratory: Lungs Clear, Decreased Breath Sounds Cardiovascular: Regular Rate, Rhythm, Systolic Murmur, Gallop/S4 Capillary Refill: Less Than 3 Seconds Gastrointestinal: normal bowel sounds, non tender, soft Extremity: Non Tender, No Calf Tenderness Neurologic/Psychiatric: Alert Skin: Warm/Dry Results Lab Laboratory Tests 08/06/18 11:35 08/07/18 05:40 08/08/18 05:50 Assessment/Plan Assessment/Plan bilateral pneumonia -resolving -D/C Omnicef if ok with Dr. Haider -Douglas cultures neg thus far -Pt is on RA -V/Q scan is low probability of PE Lethargy -CT head is negative Pulmonary edema with exudative pleural effusions bilaterally. -S/P bilateral Chest tubes- are d/c'd Pulmonary HTN probably group III -Will do out patient PSG Renal failure - -monitor -Consider nephrology referral as out patient metabolic acidosis -IVF Hx of Anoxic encephalopathy Influenza A -s/p Tamiflu WHITNEY HOLLOWAY DO Aug 08, 2018 07:08
[2018-08-08 07:45] VITALS: BP 147/85
[2018-08-08] MEDS: PANTOPRAZOLE 40 MG (PROTONIX) TAB PO SCH (09:05)
[2018-08-08] MEDS: CARVEDILOL 12.5 MG (COREG) TABLET PO SCH ×2 (09:05→21:37)
[2018-08-08] MEDS: DULoxetine 30 MG (CYMBALTA) CAP PO SCH (09:05)
[2018-08-08] MEDS: VITAMIN D3 5,000 UNITS (CHOLECALCIFEROL ) CAPSULE PO SCH (09:05)
[2018-08-08] MEDS: ENOXAPARIN 40 MG/0.4 ML (LOVENOX) SYR SC SCH ×2 (09:06→21:38)
[2018-08-08] MEDS: LIDOCAINE 4% (SALONPAS) PATCH TOP SCH (09:11)
[2018-08-08] MEDS: amLODIPine 10 MG (NORVASC) TAB PO SCH (09:12)
--- NOTE | 2018-08-08 12:41 | Progress Note-Hospitalist ---
Subjective HPI/CC On Admission Date Seen by Provider: Aug 08, 2018 Time Seen by Provider: 11:15 Patient reports trying to piece of toast this morning but vomited within 10 minutes. Currently she denies nausea or stomach pain just states she feels extremely tired. She is not aware of any past history of diabetic gastroparesis. She reports some chest discomfort at the site of her previous chest tubes with movement but not at rest. Subjective/Events-last exam Patient sleeping Confusion is intermittent No pain is reported RN has no concerns Overall prognosis guarded Reviewed meds and labs Review of Systems General: Fatigue Pulmonary: Cough Neurological: Confusion Focused Exam Lactate Level 08/05/18 16:15: Lactic Acid Level 0.76 Objective Exam Vital Signs Vital Signs Date Time Temp Pulse Resp B/P (MAP) Pulse Ox O2 Delivery O2 Flow Rate FiO2 08/08/18 07:45 97.5 76 16 147/85 (105) 96 Room Air 08/05/18 08:45 2.00 Capillary Refill : Less Than 3 SecondsLess Than 3 Seconds General Appearance: No Apparent Distress, WD/WN, Chronically ill, Obese HEENT: Normal ENT Inspection Neck: Supple Respiratory: Lungs Clear, Decreased Breath Sounds, Wheezing Cardiovascular: Regular Rate, Rhythm, No Edema, Systolic Murmur, Gallop/S4 Gastrointestinal: Non Tender, Soft, Abnormal Bowel Sounds (Hypoactive) Rectal: Deferred Extremity: Non Tender, No Calf Tenderness Neurologic/Psychiatric: Alert, No Motor/Sensory Deficits, Normal Mood/Affect, clinical administrative coordinator II-XII Norm as Tested, Disoriented Skin: Warm/Dry Results/Procedures Lab Laboratory Tests 08/08/18 05:50 Patient resulted labs reviewed. Assessment/Plan Assessment and Plan Assess & Plan/Chief Complaint Assessment per PCP: 1. Acute Bilateral Pneumonia with Bilateral Pleural Effusions with worsening shortness of air--CXR still shows infiltrates and pleural effusion-on meropenem 2. Hypoxia--oxygen sats stable on RA 3. COPD--stable 4. Influenza A--treated 5. Hypertension--stable 6. Diabetes mellitus--stable 7. Back Pain--on lidocaine patches and dose tylenol routinely but will hold tramadol due to lethargy 8. Anemia--improved after transfusion 9. Acute on Chronic Renal Insufficiency--Cr still not coming down 10. Hypertensive Urgency--increase hydralazine, consult cardiology 11. Dyspnea/Chest Pain--VQ scan ordered as unable to do CT angiogram due to Cr , lovenox restarted at DVT prophylaxis dose 12. 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 Diagnosis/Problems Diagnosis/Problems (1) Pneumonia Status: Acute Qualifiers: Pneumonia type: due to unspecified organism Laterality: bilateral Lung location: unspecified part of lung Qualified Codes: J18.9 - Pneumonia, unspecified organism (2) Hypoxia Status: Acute (3) Hypertension Status: Chronic Qualifiers: Hypertension type: unspecified Qualified Codes: I10 - Essential (primary) hypertension (4) Altered mental status Status: Chronic Qualifiers: Altered mental status type: unspecified Qualified Codes: R41.82 - Altered mental status, unspecified (5) Neurocognitive deficits Status: Chronic Clinical Quality Measures DVT/VTE Risk/Contraindication: Risk Factor Score Per Nursin RFS Level Per Nursing on Admit: 4+=Very High SOHAIL HUBER DO Aug 08, 2018 12:41
[2018-08-08] MEDS: fluCOnazole (DIFLUCAN) 100 MG TAB PO SCH (12:42)
--- NOTE | 2018-08-08 14:20 | Progress Note-Cardiology ---
Cardiology SOAP Progress Note Subjective: No cp or palp or syncope or shortness of breath at rest States feels nervous Objective: I&O/Vital Signs 08/08/18 08/08/18 07:15 07:45 Temp 97.5 Pulse 76 Resp 16 B/P (MAP) 147/85 (105) Pulse Ox 96 O2 Delivery Room Air Room Air 08/08/18 00:00 Intake Total 2130 ml Balance 2130 ml Weight (Pounds): 233 Weight (Ounces): 0.0 Weight (Calculated Kilograms): 105.026935 Constitutional: other (Oriented to self only) Respiratory: No accessory muscle use, No respiratory distress; chest expansion is symmetric, chest is bilaterally symmetric, other (diminished lower lobes bilat; poor inspiratory effort) Cardiovascular: No JVD; S1 and S2, other Gastrointestional: soft, audible bowel sounds Extremities: swelling (mild bilat LE swelling) Neurologic/Psychiatric: other (moves extremities) Skin: No rash, No ulcerations Results/Procedures: Labs Laboratory Tests 08/07/18 16:26: Glucometer 169H 08/07/18 21:18: Glucometer 229H 08/08/18 05:50: White Blood Count 6.2, Red Blood Count 2.87L, Hemoglobin 8.5L, Hematocrit 26L, Mean Corpuscular Volume 89, Mean Corpuscular Hemoglobin 30, Mean Corpuscular Hemoglobin Concent 33, Red Cell Distribution Width 15.3H, Platelet Count 448H, Mean Platelet Volume 8.9, Sodium Level 133L, Potassium Level 4.6, Chloride Level 109H, Carbon Dioxide Level 18L, Anion Gap 6, Blood Urea Nitrogen 47H, Creatinine 2.30H, Estimat Glomerular Filtration Rate 22, BUN/Creatinine Ratio 20 , Glucose Level 70, Calcium Level 8.0L, Corrected Calcium 9.6, Magnesium Level 1.8, Total Bilirubin 0.3, Aspartate Amino Transf (AST/SGOT) 12, Alanine Aminotransferase (ALT/SGPT) < 6, Alkaline Phosphatase 95, Total Protein 6.4, Albumin 2.0L, Thyroid Stimulating Hormone (TSH) 8.22H 08/08/18 05:51: Glucometer 74 08/08/18 10:55: Glucometer 152H Microbiology 07/23/18 Blood Culture - Final, Complete No growth 07/27/18 Gram Stain - Final, Complete 07/27/18 Body Fluid Culture - Final, Complete No growth 07/26/18 MRSA Screen - Final, Complete MRSA not isolated 08/05/18 Urine Culture - Final, Complete YEAST A/P: Assessment: Ac on ch renal failure, being managed by Dr Bender Marked systemic hypertension, likely essential hypertension that seems to taking a malignant turn (worsening renal function) Marked pulmonary hypertension, suspected to be due to obesity-hypoventilation and DIANNA Chest discomfort - likely non-cardiac, reproducible with palpation Echocardiogram of 08-06-18 (Dr Morrow) showed LVEF 55-65%. Grade 2 diastolic dysfunction. Mild to Mod TR. PASP 79 mmHg Pneumonia - management per medical/pulmonary services Anemia of undetermined etiology Acute on chronic exacerbation of COPD Influenza A - management per medical services DM 2 Acute on chronic renal insufficiency - consider malignant hypertension Plan: * BP improved after yesterday's med changes, continue * Monitor labs closely TIERNEY BEVERLY MD FACP FAC CCDS Aug 08, 2018 14:20
[2018-08-08 16:00] VITALS: BP 149/72
[2018-08-08] MEDS: doxAzosin 2 MG (CARDURA) TAB PO SCH (21:37)
[2018-08-08] MEDS: inSUlin DETERMIR 1 UNIT/0.01 ML (LEVEMIR) CHARGE PER UNIT SQ SCH (21:38)
[2018-08-08] MEDS: LIDOCAINE PATCH REMOVAL TP SCH (21:51)
[2018-08-09] VITALS: BP 147/86
[2018-08-09] MEDS: MEROPENEM 500 MG in WATER (STERILE) FOR INJECTION 10 ML IV SCH ×3 (00:43→17:16)
[2018-08-09] MEDS ORDERED: ACETAMINOPHEN 325 MG TABLET ONE (04:05)
[2018-08-09] MEDS: ACETAMINOPHEN 325 MG TABLET PO PRN ×2 (04:08→21:36)
[2018-08-09 05:08] LABS: BASOPHILS % (AUTO) 0 % (0-10); EOSINOPHILS % (AUTO) 1 % (0-10); HEMATOCRIT 24 % (35-52); LYMPHOCYTES # (AUTO) 1.9 X 10^3 (1.0-4.0); LYMPHOCYTES % (AUTO) 33 % (12-44); MEAN CORPUSCULAR HEMOGLOBIN 29 PG (25-34); MEAN CORPUSCULAR HGB CONC 33 G/DL (32-36); MEAN CORPUSCULAR VOLUME 89 FL (80-99); MEAN PLATELET VOLUME 8.7 FL (7.4-10.4); MONOCYTES # (AUTO) 0.4 X 10^3 (0.0-1.0); MONOCYTES % (AUTO) 7 % (0-12); NEUTROPHILS # (AUTO) 3.5 X 10^3 (1.8-7.8); NEUTROPHILS % (AUTO) 59 % (42-75); PLATELET COUNT 371 10^3/uL (130-400); RED CELL DISTRIBUTION WIDTH 15.4 % (10.0-14.5); WHITE BLOOD COUNT 5.9 10^3/uL (4.3-11.0)
[2018-08-09 05:29] LABS: ALANINE AMINOTRANSFERASE < 6 U/L (0-55); ALKALINE PHOSPHATASE 84 U/L (40-136); BILIRUBIN,TOTAL 0.3 MG/DL (0.1-1.0); BUN/CREATININE RATIO 18; CALCIUM 7.8 MG/DL (8.5-10.1); CARBON DIOXIDE 18 MMOL/L (21-32); CHLORIDE 109 MMOL/L (98-107); CREATININE SERUM 2.55 MG/DL (0.60-1.30); GFR ESTIMATED 20; GLUCOSE 116 MG/DL (70-105); POTASSIUM 4.6 MMOL/L (3.6-5.0); SODIUM 135 MMOL/L (135-145); TOTAL PROTEIN 6.1 GM/DL (6.4-8.2)
[2018-08-09] MEDS: inSUlin ASPART (NovoLOG) 1 UNIT/0.01 ML (CHARGE PER UNIT) SC SCH ×4 (05:56→21:12)
[2018-08-09] MEDS: hydrALAZINE (APRESOLINE) 25 MG TAB PO SCH ×3 (06:37→21:36)
[2018-08-09 08:15] VITALS: BP 140/85
[2018-08-09] MEDS: PANTOPRAZOLE 40 MG (PROTONIX) TAB PO SCH (09:06)
[2018-08-09] MEDS: amLODIPine 10 MG (NORVASC) TAB PO SCH (09:06)
[2018-08-09] MEDS: CARVEDILOL 12.5 MG (COREG) TABLET PO SCH ×2 (09:06→21:37)
[2018-08-09] MEDS: DULoxetine 30 MG (CYMBALTA) CAP PO SCH (09:06)
[2018-08-09] MEDS: VITAMIN D3 5,000 UNITS (CHOLECALCIFEROL ) CAPSULE PO SCH (09:08)
[2018-08-09] MEDS: LIDOCAINE 4% (SALONPAS) PATCH TOP SCH (09:10)
--- NOTE | 2018-08-09 11:27 | NUR ---
Dr. Mercado to floor. Informed of lower extremity edema and C/O leg pain. In room to assess. New order for wide SAI wraps.
[2018-08-09] MEDS: fluCOnazole (DIFLUCAN) 100 MG TAB PO SCH (11:44)
--- NOTE | 2018-08-09 12:57 | Progress Note-Hospitalist ---
Subjective HPI/CC On Admission Date Seen by Provider: Aug 09, 2018 Time Seen by Provider: 11:15 Patient reports trying to piece of toast this morning but vomited within 10 minutes. Currently she denies nausea or stomach pain just states she feels extremely tired. She is not aware of any past history of diabetic gastroparesis. She reports some chest discomfort at the site of her previous chest tubes with movement but not at rest. Subjective/Events-last exam Lost IV access and all meds were changed to p.o. Worried about her legs which are slightly swollen but not to the extent she is fearing We will add wide [place] wraps loosely bound to decrease the edema Overall needs constant reassurance Constantly talking about pain but does not appear to be in pain Baseline confusion and varied lucidity Review of Systems General: Fatigue Cardiovascular: Edema Musculoskeletal: leg pain Neurological: Confusion Objective Exam Vital Signs Vital Signs Date Time Temp Pulse Resp B/P (MAP) Pulse Ox O2 Delivery O2 Flow Rate FiO2 08/09/18 15:43 98.2 76 20 130/69 (89) 96 Room Air 08/09/18 00:00 1.00 Capillary Refill : Less Than 3 SecondsLess Than 3 Seconds General Appearance: No Apparent Distress, WD/WN, Chronically ill, Obese HEENT: Normal ENT Inspection Neck: Supple Respiratory: Lungs Clear, Decreased Breath Sounds, Wheezing Cardiovascular: Regular Rate, Rhythm, No Edema, Systolic Murmur, Gallop/S4 Gastrointestinal: Non Tender, Soft, Abnormal Bowel Sounds (Hypoactive) Rectal: Deferred Extremity: Non Tender, No Calf Tenderness Neurologic/Psychiatric: Alert, No Motor/Sensory Deficits, Normal Mood/Affect, fixed capital clerk II-XII Norm as Tested, Disoriented Skin: Warm/Dry Results/Procedures Lab Laboratory Tests 08/09/18 05:00 Patient resulted labs reviewed. Assessment/Plan Assessment and Plan Assess & Plan/Chief Complaint Assessment per PCP: 1. Acute Bilateral Pneumonia with Bilateral Pleural Effusions with worsening shortness of air--CXR still shows infiltrates and pleural effusion-on meropenem 2. Hypoxia--oxygen sats stable on RA 3. COPD--stable 4. Influenza A--treated 5. Hypertension--stable 6. Diabetes mellitus--stable 7. Back Pain--on lidocaine patches and dose tylenol routinely but will hold tramadol due to lethargy 8. Anemia--improved after transfusion 9. Acute on Chronic Renal Insufficiency--Cr still not coming down 10. Hypertensive Urgency--increase hydralazine, consult cardiology 11. Dyspnea/Chest Pain--VQ scan ordered as unable to do CT angiogram due to Cr , lovenox restarted at DVT prophylaxis dose 12. Confusion--stat CT of Head Plan: No changes proposed Guarded prognosis jail Changed meds to PO Replace potassium Wide [place] wraps for very subtle edema Diagnosis/Problems Diagnosis/Problems (1) Pneumonia Status: Acute Qualifiers: Pneumonia type: due to unspecified organism Laterality: bilateral Lung location: unspecified part of lung Qualified Codes: J18.9 - Pneumonia, unspecified organism (2) Hypoxia Status: Acute (3) Hypertension Status: Chronic Qualifiers: Hypertension type: unspecified Qualified Codes: I10 - Essential (primary) hypertension (4) Altered mental status Status: Chronic Qualifiers: Altered mental status type: unspecified Qualified Codes: R41.82 - Altered mental status, unspecified (5) Neurocognitive deficits Status: Chronic Clinical Quality Measures DVT/VTE Risk/Contraindication: Risk Factor Score Per Nursin RFS Level Per Nursing on Admit: 4+=Very High SOHAIL HUBER DO Aug 09, 2018 12:57
--- NOTE | 2018-08-09 14:05 | NUR ---
Patient remains alert to person only. Repeats questions.
[2018-08-09 14:14] VITALS: BP 120/63
--- NOTE | 2018-08-09 15:24 | Progress Note-Cardiology ---
Cardiology SOAP Progress Note Subjective: Feels stressed Does not report shortness of breath or palp or syncope Objective: I&O/Vital Signs 08/09/18 08/09/18 08/09/18 08/09/18 07:23 08:15 09:00 14:14 Temp 98.3 Pulse 87 66 Resp 18 18 B/P (MAP) 140/85 (103) 120/63 (82) Pulse Ox 96 96 O2 Delivery Room Air Room Air Room Air Room Air 08/09/18 00:00 Intake Total 1520 ml Balance 1520 ml Weight (Pounds): 232 Weight (Ounces): 3.0 Weight (Calculated Kilograms): 105.895500 Constitutional: other (Oriented to person and place; speech somewhat confused ( seems to find hard to distinguish between 1st person and 2nd person pronouns)) Respiratory: No accessory muscle use, No respiratory distress; chest expansion is symmetric, chest is bilaterally symmetric, other (diminished lower lobes bilat; poor inspiratory effort) Cardiovascular: No JVD; S1 and S2, other Gastrointestional: soft, audible bowel sounds Extremities: swelling (mild bilat LE swelling) Neurologic/Psychiatric: other (moves extremities) Skin: No rash, No ulcerations Results/Procedures: Labs Laboratory Tests 08/08/18 15:59: Glucometer 141H 08/08/18 20:49: Glucometer 175H 08/09/18 05:00: White Blood Count 5.9, Red Blood Count 2.74L, Hemoglobin 8.0L, Hematocrit 24L, Mean Corpuscular Volume 89, Mean Corpuscular Hemoglobin 29, Mean Corpuscular Hemoglobin Concent 33, Red Cell Distribution Width 15.4H, Platelet Count 371, Mean Platelet Volume 8.7, Neutrophils (%) (Auto) 59, Lymphocytes (%) (Auto) 33, Monocytes (%) (Auto) 7, Eosinophils (%) (Auto) 1, Basophils (%) (Auto) 0, Neutrophils # (Auto) 3.5, Lymphocytes # (Auto) 1.9, Monocytes # (Auto) 0.4, Eosinophils # (Auto) 0.0, Basophils # (Auto) 0.0, Sodium Level 135, Potassium Level 4.6, Chloride Level 109H, Carbon Dioxide Level 18L, Anion Gap 8, Blood Urea Nitrogen 46H, Creatinine 2.55H, Estimat Glomerular Filtration Rate 20, BUN/ Creatinine Ratio 18, Glucose Level 116H, Calcium Level 7.8L, Corrected Calcium 9.4, Total Bilirubin 0.3, Aspartate Amino Transf (AST/SGOT) 11, Alanine Aminotransferase (ALT/SGPT) < 6, Alkaline Phosphatase 84, Total Protein 6.1L, Albumin 2.0L 08/09/18 11:02: Glucometer 97 Microbiology 07/23/18 Blood Culture - Final, Complete No growth 07/27/18 Gram Stain - Final, Complete 07/27/18 Body Fluid Culture - Final, Complete No growth 07/26/18 MRSA Screen - Final, Complete MRSA not isolated 08/05/18 Urine Culture - Final, Complete YEAST Laboratory Tests 08/08/18 05:50 08/09/18 05:00 A/P: Assessment: Ac on ch renal failure, being managed by Dr Mercado. Acute component is likely due to malignant hypertension Marked systemic hypertension / malignant hypertension (worsening renal function) Marked pulmonary hypertension, suspected to be due to obesity-hypoventilation and DIANNA Chest discomfort - likely non-cardiac, reproducible with palpation Echocardiogram of 08-06-18 (Dr Morrow) showed LVEF 55-65%. Grade 2 diastolic dysfunction. Mild to Mod TR. PASP 79 mmHg Pneumonia - management per medical/pulmonary services Anemia of undetermined etiology Acute on chronic exacerbation of COPD Influenza A - management per medical services DM 2 Plan: * BP improved after med changes, continue * Monitor labs closely TIERNEY BEVERLY MD FACP FAC CCDS Aug 09, 2018 15:24
[2018-08-09 15:43] VITALS: BP 130/69
[2018-08-09] MEDS ORDERED: ENOXAPARIN 40 MG/0.4 ML (LOVENOX) SYR SC SCH (21:00)
[2018-08-09] MEDS: inSUlin DETERMIR 1 UNIT/0.01 ML (LEVEMIR) CHARGE PER UNIT SQ SCH (21:35)
[2018-08-09] MEDS: ENOXAPARIN 30 MG/0.3 ML (LOVENOX) SYR SC SCH (21:35)
[2018-08-09] MEDS: LIDOCAINE PATCH REMOVAL TP SCH (21:35)
[2018-08-09] MEDS: doxAzosin 2 MG (CARDURA) TAB PO SCH (21:37)
[2018-08-10 00:05] VITALS: BP 113/63
[2018-08-10] MEDS: MEROPENEM 500 MG in WATER (STERILE) FOR INJECTION 10 ML IV SCH ×2 (01:07→09:48)
[2018-08-10] MEDS: hydrALAZINE (APRESOLINE) 25 MG TAB PO SCH ×3 (06:33→21:37)
[2018-08-10] MEDS: inSUlin ASPART (NovoLOG) 1 UNIT/0.01 ML (CHARGE PER UNIT) SC SCH ×4 (06:33→20:51)
[2018-08-10 08:00] VITALS: BP 126/58
--- NOTE | 2018-08-10 09:00 | NUR ---
ALERT AND ORIENTED X4 AT THIS TIME. REPEATS WHAT NURSE SAYS/OR ASKS HER SO IT IS CONFUSING TO CARRY ON A CONVERSATION DUE TO HER EXPRESSIVE APHASIA. DENIES PAIN. MODERATE LOOSE, BROWN STOOL. REFUSES SAI WRAPS TO LEGS.
[2018-08-10] MEDS: CARVEDILOL 12.5 MG (COREG) TABLET PO SCH ×2 (09:24→21:31)
[2018-08-10] MEDS: PANTOPRAZOLE 40 MG (PROTONIX) TAB PO SCH (09:24)
[2018-08-10] MEDS: DULoxetine 30 MG (CYMBALTA) CAP PO SCH (09:25)
[2018-08-10] MEDS: amLODIPine 10 MG (NORVASC) TAB PO SCH (09:25)
[2018-08-10] MEDS: LIDOCAINE 4% (SALONPAS) PATCH TOP SCH (09:27)
[2018-08-10] MEDS: VITAMIN D3 5,000 UNITS (CHOLECALCIFEROL ) CAPSULE PO SCH (09:47)
--- NOTE | 2018-08-10 11:30 | NUR ---
VERY RESTLESS. REPEATEDLY SAYING IS GOING TO LEAVE HOSPITAL AND IF WE DON'T LET HER, SHE WILL CALL THE POLICE OR 911. AMBULATED IN [place] WITH NURSE AIDE, AND AIDE SAID SHE GOT ON ELEVATOR WHEN THE DOOR OPENED. THEY WALKED ON FIRST FLOOR FOR A WHILE, BEFORE HE COULD GET UP BACK UPSTAIRS. DAUGHTER ANNIKA AND FRIEND LISA CALLED AND BOTH SAID THEY WOULD COME TO SIT WITH HER.
[2018-08-10] MEDS: fluCOnazole (DIFLUCAN) 100 MG TAB PO SCH (12:27)
--- NOTE | 2018-08-10 12:30 | NUR ---
CONTINUED RESTLESSNESS AND FRUSTRATION THAT WE WILL NOT LET HER LEAVE. DR. LYLE NOTIFIED.
--- NOTE | 2018-08-10 13:08 | Pulmonary Progress Note ---
Subjective Time Seen by a Provider: 14:45 Subjective/Events-last exam Pt states breathing is better. Sepsis Event Evaluation Height, Weight, BMI Height: 5'2.00" Weight: 224lbs. 8.0oz. 101.894060qo; 35.9 BMI Method:Stated Exam Exam Vital Signs Date Time Temp Pulse Resp B/P (MAP) Pulse Ox O2 Delivery O2 Flow Rate FiO2 08/10/18 08:00 98.0 65 18 126/58 (80) 98 Room Air 08/10/18 00:05 98.8 63 20 113/63 (80) 97 Room Air 08/09/18 20:30 Room Air 08/09/18 15:43 98.2 76 20 130/69 (89) 96 Room Air 08/09/18 14:14 66 18 120/63 (82) 96 Room Air I & O 08/10/18 07:00 Intake Total 1120 ml Output Total 175 ml Balance 945 ml Height & Weight Height: 5'2.00" Weight: 224lbs. 8.0oz. 101.608847fx; 35.9 BMI Method:Stated General Appearance: No Apparent Distress, WD/WN, Chronically ill, Obese HEENT: Normal ENT Inspection Neck: Supple Respiratory: Lungs Clear, Decreased Breath Sounds, Wheezing Cardiovascular: Regular Rate, Rhythm, No Edema, Systolic Murmur, Gallop/S4 Capillary Refill: Less Than 3 Seconds Gastrointestinal: normal bowel sounds, non tender, soft Extremity: Non Tender, No Calf Tenderness Neurologic/Psychiatric: Alert, No Motor/Sensory Deficits, Normal Mood/Affect, hand slitter II-XII Norm as Tested, Disoriented Skin: Warm/Dry Results Lab Laboratory Tests 08/09/18 05:00 Assessment/Plan Assessment/Plan bilateral pneumonia -resolving - PT is 98% on RA. -D/C Merrem -Douglas cultures neg thus far -Pt is on RA -V/Q scan is low probability of PE Lethargy -CT head is negative Pulmonary edema with exudative pleural effusions bilaterally. -S/P bilateral Chest tubes- are d/c'd Pulmonary HTN probably group III -Will do out patient PSG Renal failure - -monitor -Consider nephrology referral as out patient Hx of Anoxic encephalopathy Influenza A -s/p Tamiflu DM Pt is doing better pulmonary smith. I am going to sign off. Consider nephrology out pt referral. Call me with any questions. WHITNEY BEASLEY DO Aug 10, 2018 13:08
[2018-08-10 13:14] VITALS: BP 120/62
[2018-08-10] MEDS ORDERED: HALOPERIDOL 5 MG/ML (HALDOL) AMP IM NR (13:15)
[2018-08-10] MEDS ORDERED: LORazepam INJ 2 MG/ML (ATIVAN) VIAL IVP NR (13:15)
--- NOTE | 2018-08-10 13:30 | NUR ---
DR. LYLE HAS SEEN PATIENT AND MEDICATED WITH HALDOL AND ATIVAN. DAUGHTER RANCHO AT BEDSIDE. BP STABLE.
--- NOTE | 2018-08-10 13:30 | Progress Note-Cardiology ---
Cardiology SOAP Progress Note Subjective: Notes improvement of shortness of breath. No cp. Feels anxious. Wants to be d/c' d to home. A daughter is by her bedside Objective: I&O/Vital Signs 08/10/18 08/10/18 08:00 13:14 Temp 98.0 Pulse 65 85 Resp 18 B/P (MAP) 126/58 (80) 120/62 (81) Pulse Ox 98 O2 Delivery Room Air 08/10/18 00:00 Intake Total 880 ml Output Total 175 ml Balance 705 ml Weight (Pounds): 224 Weight (Ounces): 8.0 Weight (Calculated Kilograms): 101.069830 Constitutional: other (Oriented to person and place; speech somewhat confused ( seems to find hard to distinguish between 1st person and 2nd person pronouns)) Respiratory: No accessory muscle use, No respiratory distress; chest expansion is symmetric, chest is bilaterally symmetric, other (diminished lower lobes bilat; poor inspiratory effort) Cardiovascular: No JVD; S1 and S2, other Gastrointestional: soft, audible bowel sounds Extremities: swelling (mild bilat LE swelling) Neurologic/Psychiatric: other (moves extremities) Skin: No rash, No ulcerations Results/Procedures: Labs Laboratory Tests 08/09/18 15:45: Glucometer 156H 08/09/18 21:05: Glucometer 141H 08/10/18 06:28: Glucometer 78 08/10/18 11:13: Glucometer 98 Microbiology 07/23/18 Blood Culture - Final, Complete No growth 07/27/18 Gram Stain - Final, Complete 07/27/18 Body Fluid Culture - Final, Complete No growth 07/26/18 MRSA Screen - Final, Complete MRSA not isolated 08/05/18 Urine Culture - Final, Complete YEAST Laboratory Tests 08/09/18 05:00 A/P: Assessment: Ac on ch renal failure, being managed by the Med S[facility]. Acute component is likely due to malignant hypertension Marked systemic hypertension / malignant hypertension (worsening renal function) Marked pulmonary hypertension, suspected to be due to obesity-hypoventilation and DIANNA Chest discomfort - likely non-cardiac, reproducible with palpation Echocardiogram of 08-06-18 (Dr Morrow) showed LVEF 55-65%. Grade 2 diastolic dysfunction. Mild to Mod TR. PASP 79 mmHg Pneumonia - management per medical/pulmonary services Anemia of undetermined etiology Acute on chronic exacerbation of COPD Influenza A - management per medical services DM 2 Plan: * I had a detailed discussion of her CV issues with pt and her daughter, and with Dr Haider * BP improved after med changes, continue * We recommend sleep studies and treatment of sleep apnea, if found * Monitor labs closely TIERNEY BEVERLY MD FACP FAC CCDS Aug 10, 2018 13:29
--- NOTE | 2018-08-10 14:00 | NUR ---
AGREED TO HAVE LARGE SAI WRAPS PUT ON LEGS.
--- NOTE | 2018-08-10 14:30 | NUR ---
HAS BEEN SLEEPING SOUNDLY. 4 BEDRAILS UP AND BED EXIT ALARM ON.
[2018-08-10 16:00] VITALS: BP 156/82
--- NOTE | 2018-08-10 17:28 | NUR ---
AWAKENED FOR VITAL SIGNS AND BLOOD SUGAR CHECK. WAS HUNGRY AND EATING DINNER. CALM AND COOPERATIVE AT THIS TIME.
--- NOTE | 2018-08-10 17:52 | Progress Note (SOAP) ---
Subjective Date Seen by a Provider: Aug 10, 2018 Time Seen by a Provider: 12:45 Subjective/Events-last exam Fwup pneumonia with pleural effusions, hypoxia, influenza A, COPD, uncontrolled DM--insulin requiring, anoxic encephalopathy, chronic renal failure, malignant hypertension. Confused and agitated today--wanting to go home, refusing medications. Objective Exam Vital Signs Date Time Temp Pulse Resp B/P (MAP) Pulse Ox O2 Delivery O2 Flow Rate FiO2 08/10/18 16:00 98.1 79 22 156/82 (106) 96 Room Air 08/10/18 13:14 85 120/62 (81) 08/10/18 09:00 Room Air 08/10/18 08:00 98.0 65 18 126/58 (80) 98 Room Air 08/10/18 00:05 98.8 63 20 113/63 (80) 97 Room Air 08/09/18 20:30 Room Air I & O 08/10/18 07:00 Intake Total 1120 ml Output Total 175 ml Balance 945 ml Capillary Refill : Less Than 3 SecondsLess Than 3 Seconds General Appearance: Severe Distress (anxious agitated) Neck: Supple Respiratory: Lungs Clear, Decreased Breath Sounds Cardiovascular: Regular Rate, Rhythm Extremity: Pedal Edema Neurologic/Psychiatric: Alert, Other (confused) Skin: Warm/Dry Results Lab Laboratory Tests 08/09/18 21:05: Glucometer 141H 08/10/18 06:28: Glucometer 78 08/10/18 11:13: Glucometer 98 08/10/18 17:19: Glucometer 115H Microbiology 07/23/18 Blood Culture - Final, Complete No growth 07/27/18 Gram Stain - Final, Complete 07/27/18 Body Fluid Culture - Final, Complete No growth 07/26/18 MRSA Screen - Final, Complete MRSA not isolated 08/05/18 Urine Culture - Final, Complete YEAST Assessment/Plan Assessment/Plan Assess & Plan/Chief Complaint 1. Acute Bilateral Pneumonia with Bilateral Pleural Effusions with worsening shortness of air--improvws 2. Hypoxia--oxygen sats stable on RA 3. COPD--stable 4. Influenza A--treated 5. Malignant Hypertension--meds adjusted and BP improving, will need updated sleep study as outpatient 6. Diabetes mellitus--stable 7. Back Pain--on lidocaine patches and dose tylenol routinely 8. Anemia--improved after transfusion 9. Chronic Renal Failure--will need nephrology on DC 10. Acute Delirium--IV lorazepam and haldol given then will start low dose mood stabilizer Clinical Quality Measures Admission Status Admission Dx 1. Acute Bilateral Pneumonia--cover with maxipime due to recent hospital stay 2. Acute Hypoxia--on oxygen and SVNs 3. Influenza A--on tamiflu 4. Hypertension--restart coreg 5. Diabetes mellitus--insulin requiring--start levemir and SSI 6. Anoxic Encephalopathy--stable DVT/VTE Risk/Contraindication: Risk Factor Score Per Nursin RFS Level Per Nursing on Admit: 4+=Very High MIRELA LYLE DO Aug 10, 2018 17:52
[2018-08-10] MEDS ORDERED: HALOPERIDOL 5 MG/ML (HALDOL) AMP IM PRN (18:00)
[2018-08-10] MEDS ORDERED: LORazepam INJ 2 MG/ML (ATIVAN) VIAL IVP PRN (18:00)
[2018-08-10] MEDS ORDERED: ZIPRASIDONE 20 MG (GEODON) CAP PO NR (19:00)
[2018-08-10] MEDS: inSUlin DETERMIR 1 UNIT/0.01 ML (LEVEMIR) CHARGE PER UNIT SQ SCH (21:30)
[2018-08-10] MEDS: ENOXAPARIN 30 MG/0.3 ML (LOVENOX) SYR SC SCH (21:30)
[2018-08-10] MEDS: doxAzosin 2 MG (CARDURA) TAB PO SCH (21:31)
[2018-08-10] MEDS: LIDOCAINE PATCH REMOVAL TP SCH (21:37)
[2018-08-11 00:10] VITALS: BP 161/51
[2018-08-11] MEDS: hydrALAZINE (APRESOLINE) 25 MG TAB PO SCH ×3 (05:37→21:58)
[2018-08-11] MEDS: ZIPRASIDONE 20 MG (GEODON) CAP PO SCH ×2 (05:37→18:46)
[2018-08-11] MEDS: inSUlin ASPART (NovoLOG) 1 UNIT/0.01 ML (CHARGE PER UNIT) SC SCH ×4 (05:40→21:07)
[2018-08-11 08:25] VITALS: BP 156/81
[2018-08-11] MEDS: CARVEDILOL 12.5 MG (COREG) TABLET PO SCH ×2 (09:18→21:06)
[2018-08-11] MEDS: amLODIPine 10 MG (NORVASC) TAB PO SCH (09:18)
[2018-08-11] MEDS: LIDOCAINE 4% (SALONPAS) PATCH TOP SCH ×2 (09:18→12:24)
[2018-08-11] MEDS: PANTOPRAZOLE 40 MG (PROTONIX) TAB PO SCH (09:18)
[2018-08-11] MEDS: DULoxetine 30 MG (CYMBALTA) CAP PO SCH (09:18)
[2018-08-11] MEDS: VITAMIN D3 5,000 UNITS (CHOLECALCIFEROL ) CAPSULE PO SCH (09:27)
--- NOTE | 2018-08-11 10:51 | Progress Note-Cardiology ---
Cardiology SOAP Progress Note Subjective: In bed. Drowsy. Easily awakens. States "tired". No c/o pain, palpitations or dyspnea. Objective: I&O/Vital Signs 08/11/18 08/11/18 08:25 15:42 Temp 98.4 97.9 Pulse 82 74 Resp 18 18 B/P (MAP) 156/81 (106) 115/75 (88) Pulse Ox 94 93 O2 Delivery Room Air Room Air 08/11/18 00:00 Intake Total 1190 ml Balance 1190 ml Weight (Pounds): 223 Weight (Ounces): 7.0 Weight (Calculated Kilograms): [id number] Constitutional: other (Oriented to person and place; speech somewhat confused ( seems to find hard to distinguish between 1st person and 2nd person pronouns)) Respiratory: No accessory muscle use, No respiratory distress; chest expansion is symmetric, chest is bilaterally symmetric, other (diminished lower lobes bilat; poor inspiratory effort) Cardiovascular: No JVD; S1 and S2, other Gastrointestional: soft, audible bowel sounds Extremities: swelling (mild bilat LE swelling) Neurologic/Psychiatric: other (moves extremities) Skin: No rash, No ulcerations Results/Procedures: Labs Laboratory Tests 08/10/18 17:19: Glucometer 115H 08/10/18 20:38: Glucometer 152H 08/11/18 05:39: Glucometer 132H 08/11/18 09:54: Lab Scanned Report Transfusion Reaction Form 08/11/18 11:19: Glucometer 172H 08/11/18 15:46: Glucometer 157H Microbiology 07/23/18 Blood Culture - Final, Complete No growth 07/27/18 Gram Stain - Final, Complete 07/27/18 Body Fluid Culture - Final, Complete No growth 07/26/18 MRSA Screen - Final, Complete MRSA not isolated 08/05/18 Urine Culture - Final, Complete YEAST A/P: Assessment: Echolalia and mild confusion, probably due to anoxic brain injury, being managed by the Med S[facility] Ac on ch renal failure, being managed by the Med [facility]. Acute component is likely due to malignant hypertension Marked systemic hypertension / malignant hypertension (worsening renal function ) - improved Marked pulmonary hypertension, suspected to be due to obesity-hypoventilation and DIANNA Echocardiogram of 08-06-18 (Dr Morrow) showed LVEF 55-65%. Grade 2 diastolic dysfunction. Mild to Mod TR. PASP 79 mmHg Pneumonia - management per medical/pulmonary services Anemia of undetermined etiology Acute on chronic exacerbation of COPD Influenza A - management per medical services DM 2 Plan: * We have had a detailed discussion of her CV issues with pt and her daughter, and with Dr Haider * BP improved after med changes, continue * We recommend sleep studies and treatment of sleep apnea, if found * Monitor labs closely Physician Assessment Physician Assessment Echoes words said to her. Does not report symptoms Cor: reg Lungs: fair to good bilat air entry Ext: mild bilat leg edema A&R * As documented in our note above that I updated (italics) and as noted below * Continue current regimen * I discussed her case with Dr Haider yesterday JASON LYNCH Aug 11, 2018 10:51 TIERNEY BEVERLY MD FACP FAC CCDS Aug 11, 2018 16:54
[2018-08-11] MEDS: fluCOnazole (DIFLUCAN) 100 MG TAB PO SCH (12:20)
[2018-08-11] MEDS: ACETAMINOPHEN 325 MG TABLET PO PRN (12:39)
--- NOTE | 2018-08-11 12:41 | NUR ---
Assisted pt to toilet, pt remembers my name from when I took care of her on Friday, & on Rehab. Dr. Haider in & spoke w pt rona length re: tx, meds, labs.
[2018-08-11 15:42] VITALS: BP 115/75
--- NOTE | 2018-08-11 17:37 | Progress Note (SOAP) ---
Subjective Date Seen by a Provider: Aug 11, 2018 Time Seen by a Provider: 12:30 Subjective/Events-last exam Fwup pneumonia with pleural effusions, hypoxia, influenza A, COPD, uncontrolled DM--insulin requiring, anoxic encephalopathy, chronic renal failure, malignant hypertension, acute delirium. Sitting up eating and is much calmer today and less confused. Objective Exam Vital Signs Date Time Temp Pulse Resp B/P (MAP) Pulse Ox O2 Delivery O2 Flow Rate FiO2 08/11/18 15:42 97.9 74 18 115/75 (88) 93 Room Air 08/11/18 08:54 Room Air 08/11/18 08:25 98.4 82 18 156/81 (106) 94 Room Air 08/11/18 00:10 98.9 85 18 161/51 (87) 94 08/10/18 20:00 96 Room Air I & O 08/11/18 07:00 Intake Total 1400 ml Balance 1400 ml Capillary Refill : Less Than 3 SecondsLess Than 3 Seconds General Appearance: No Apparent Distress Neck: Supple Respiratory: Lungs Clear Cardiovascular: Regular Rate, Rhythm Gastrointestinal: normal bowel sounds, non tender, soft Neurologic/Psychiatric: Alert Skin: Warm/Dry Results Lab Laboratory Tests 08/10/18 20:38: Glucometer 152H 08/11/18 05:39: Glucometer 132H 08/11/18 09:54: Lab Scanned Report Transfusion Reaction Form 08/11/18 11:19: Glucometer 172H 08/11/18 15:46: Glucometer 157H Microbiology 07/23/18 Blood Culture - Final, Complete No growth 07/27/18 Gram Stain - Final, Complete 07/27/18 Body Fluid Culture - Final, Complete No growth 07/26/18 MRSA Screen - Final, Complete MRSA not isolated 08/05/18 Urine Culture - Final, Complete YEAST Assessment/Plan Assessment/Plan Assess & Plan/Chief Complaint 1. Acute Bilateral Pneumonia with Bilateral Pleural Effusions with worsening shortness of air--improvws 2. Hypoxia--oxygen sats stable on RA 3. COPD--stable 4. Influenza A--treated 5. Malignant Hypertension--meds adjusted and BP improving, will need updated sleep study as outpatient 6. Diabetes mellitus--stable 7. Back Pain--on lidocaine patches and dose tylenol routinely 8. Anemia--improved after transfusion 9. Chronic Renal Failure--will need nephrology on DC 10. Acute Delirium--added [facility] Clinical Quality Measures Admission Status Admission Dx 1. Acute Bilateral Pneumonia--cover with maxipime due to recent hospital stay 2. Acute Hypoxia--on oxygen and SVNs 3. Influenza A--on tamiflu 4. Hypertension--restart coreg 5. Diabetes mellitus--insulin requiring--start levemir and SSI 6. Anoxic Encephalopathy--stable DVT/VTE Risk/Contraindication: Risk Factor Score Per Nursin RFS Level Per Nursing on Admit: 4+=Very High MIRELA LYLE DO Aug 11, 2018 17:37
[2018-08-11] MEDS: doxAzosin 2 MG (CARDURA) TAB PO SCH (21:06)
[2018-08-11] MEDS: inSUlin DETERMIR 1 UNIT/0.01 ML (LEVEMIR) CHARGE PER UNIT SQ SCH (21:07)
[2018-08-11] MEDS: ENOXAPARIN 30 MG/0.3 ML (LOVENOX) SYR SC SCH (21:07)
[2018-08-12] VITALS (7 sets, daily range): BP systolic 101–168; BP diastolic 69–85
[2018-08-12 05:10] LABS: BASOPHILS % (AUTO) 0 % (0-10); EOSINOPHILS # (AUTO) 0.2 10^3/uL (0.0-0.3); EOSINOPHILS % (AUTO) 3 % (0-10); HEMATOCRIT 25 % (35-52); HEMOGLOBIN 8.2 G/DL (11.5-16.0); LYMPHOCYTES # (AUTO) 2.2 X 10^3 (1.0-4.0); LYMPHOCYTES % (AUTO) 35 % (12-44); MEAN CORPUSCULAR HEMOGLOBIN 30 PG (25-34); MEAN CORPUSCULAR HGB CONC 33 G/DL (32-36); MEAN CORPUSCULAR VOLUME 90 FL (80-99); MEAN PLATELET VOLUME 8.9 FL (7.4-10.4); MONOCYTES # (AUTO) 0.5 X 10^3 (0.0-1.0); MONOCYTES % (AUTO) 8 % (0-12); NEUTROPHILS # (AUTO) 3.4 X 10^3 (1.8-7.8); NEUTROPHILS % (AUTO) 55 % (42-75); PLATELET COUNT 325 10^3/uL (130-400); RED CELL DISTRIBUTION WIDTH 14.9 % (10.0-14.5); WHITE BLOOD COUNT 6.3 10^3/uL (4.3-11.0)
[2018-08-12 05:38] LABS: ALANINE AMINOTRANSFERASE < 6 U/L (0-55); ALKALINE PHOSPHATASE 72 U/L (40-136); BILIRUBIN,TOTAL 0.3 MG/DL (0.1-1.0); BUN/CREATININE RATIO 21; CARBON DIOXIDE 19 MMOL/L (21-32); CHLORIDE 109 MMOL/L (98-107); CREATININE SERUM 2.45 MG/DL (0.60-1.30); GFR ESTIMATED 21; POTASSIUM 4.5 MMOL/L (3.6-5.0); SODIUM 134 MMOL/L (135-145)
[2018-08-12 05:59] LABS: GLUCOSE 47 MG/DL (70-105)
[2018-08-12] MEDS: inSUlin ASPART (NovoLOG) 1 UNIT/0.01 ML (CHARGE PER UNIT) SC SCH ×4 (06:24→21:42)
[2018-08-12] MEDS: hydrALAZINE (APRESOLINE) 25 MG TAB PO SCH ×3 (06:25→21:42)
[2018-08-12] MEDS: ZIPRASIDONE 20 MG (GEODON) CAP PO SCH ×2 (06:26→16:36)
--- NOTE | 2018-08-12 07:08 | NUR ---
INFORMED DR. LYLE THAT PATIENT'S BLOOD SUGAR THIS AM WAS 47.
[2018-08-12] MEDS: PANTOPRAZOLE 40 MG (PROTONIX) TAB PO SCH (09:21)
[2018-08-12] MEDS: DULoxetine 30 MG (CYMBALTA) CAP PO SCH (09:21)
[2018-08-12] MEDS: amLODIPine 10 MG (NORVASC) TAB PO SCH (09:21)
[2018-08-12] MEDS: CARVEDILOL 12.5 MG (COREG) TABLET PO SCH ×2 (09:21→21:42)
[2018-08-12] MEDS: VITAMIN D3 5,000 UNITS (CHOLECALCIFEROL ) CAPSULE PO SCH (09:50)
[2018-08-12] MEDS: LIDOCAINE 4% (SALONPAS) PATCH TOP SCH (10:19)
--- NOTE | 2018-08-12 11:30 | NUR ---
Pt was found on floor in her room at approx 11:20. Pt was sitting on her bottom at the foot of the bed, w 4 rails up. When asking pt what happened ? She repeats what was said to her, (as she has been doing), pt did agree that she was going to the B/R. Pt denies injury, & none noted. Denies hitting head. Pt was assisted x3 staff w gait belt & FWW to standing position, then to sit on BSC, where she voided, then assisted to recliner w chair alarm on. Pt now in bed w 4 rails up, & call lt in hand, w bed alarm on. Pt had walked from recliner to sit on side of bed. Pt then laid down in bed, stating that she didn't want to sit in the chair any longer. Meal delivered, pt didn't want to eat, as just ate breakfast sandwich not long ago. As writing this, pt sat up in the bed, & reached for her plate & is feeding herself lunch. 4 rails up, call lt in reach, & bed alarm on. Notified rigger supervisor of fall.
[2018-08-12] MEDS: fluCOnazole (DIFLUCAN) 100 MG TAB PO SCH (11:47)
--- NOTE | 2018-08-12 15:43 | Occupational Therapy Eval ---
OT Evaluation-General/PLF Medical Diagnosis Admission Date Jul 23, 2018 at 21:00 Medical Diagnosis: PNA, Hypoxia Onset Date: Jul 23, 2018 Therapy Diagnosis Therapy Diagnosis: decreased self care skills Height/Weight Height (Feet): 5 Height (Inches): 2.00 Weight (Pounds): 221 Weight (Ounces): 0.0 Precautions Precautions/Isolations: Fall Prevention, Standard Precautions Safety Interventions: Bed Exit Alarm Referral Physician: Bailee Haider DO Medical History Pertinent Medical History: COPD, DM, GERD, HTN, Neuropathy, Renal Insufficiency , Smoking Additional Medical History anoxic encephalopathy, ORIF right ankle, chronic edema, high cholesterol, UTI- chronic, DDD, chronic back pain, sleep difficulties, anxiety, depression, frequent cellulitis Social History Home: Single Level Current Living Status: Children Entry Into Home: Stairs Without Railing Steps Into Home: 2 ADL-Prior Level of Function Therapy Code Descriptions/Definitions Functional [place] Measure: 0=Not Assessed/NA 4=Minimal Assistance 1=Total Assistance 5=Supervision or Setup 2=Maximal Assistance 6=Modified [place] 3=Moderate Assistance 7=Complete [place] Therapy Quality Codes: 6 Independent with activity with or without an assistive device 5 Patient requires set up or clean up by helper. Patient completes activity by themselves 4 Supervision or touching assist (CGA). [place] provide cues , steadying assist 3 The helper provides less than half the effort to complete the activity 2 The helper provides more than half the effort to complete the activity 1 Dependent. The helper does all the effort to complete an activity 7 Patient refused to complete or attempt activity 9 The patient did not perform the activity before the current illness or injury 88 Not attempted due to Medical conditions or safety concerns Functional Abilities and Goals: Independent: Patient completed the activities by him/herself, with or without an assistive device, with no assistance from a helper. Needed Some Help: Patient needed partial assistance from another person to complete activities. Dependent: A helper completed the activities for the patient. Unknown: Not Applicable: ADL PLOF Comments Pt has difficulty providing information regarding PLOF. Often repeats back what is said to her. Pt does report living with her daughter , but unable to provide further detailed information. OT Current Status Subjective Pt in bed, agrees to therapy. Pt reports back pain, but does not rate. Mental Status/Objective Patient Orientation: Person Current Glasses/Contacts: Yes Upper Extremity ROM Grossly WFL Upper Extremity Strength Pt has some difficulty following commands for formal MMT. Pt has mildly decreased strength in bilateral UE. ADL-Treatment ADL-Current Pt donned/doffed socks with SBA while in bed. Supine to sit using bed rails. Pt donned slippers with set up while seated EOB. Pt combed hair and washed face with set up. Sit to stand with SBA. Pt requires two attempts to stand from EOB. Transfer to chair with supervision using FWW, cues for safety. Pt requests to go for a walk. PT arrived at that time and took over care of pt. Therapy Code Descriptions/Definitions Functional [place] Measure: 0=Not Assessed/NA 4=Minimal Assistance 1=Total Assistance 5=Supervision or Setup 2=Maximal Assistance 6=Modified [place] 3=Moderate Assistance 7=Complete [place] Therapy Quality Codes: 6 Independent with activity with or without an assistive device 5 Patient requires set up or clean up by helper. Patient completes activity by themselves 4 Supervision or touching assist (CGA). [place] provide cues , steadying assist 3 The helper provides less than half the effort to complete the activity 2 The helper provides more than half the effort to complete the activity 1 Dependent. The helper does all the effort to complete an activity 7 Patient refused to complete or attempt activity 9 The patient did not perform the activity before the current illness or injury 88 Not attempted due to Medical conditions or safety concerns Grooming (FIM): 5 Transfers (B, C, W/C) (FIM): 5 Education OT Patient Education: Rehab process Teaching Recipient: Patient Teaching Methods: Discussion Response to Teaching: Reinforcement Needed OT Short Term Goals Short Term Goals Transfers (B,C,W/C) (FIM): 5 1=Demonstrate adherence to instructed precautions during ADL tasks. 2=Patient will verbalize/demonstrate understanding of assistive devices/ modifications for ADL. 3=Patient will improve strength/tolerance for activity to enable patient to perform ADL's. OT Call Center Specialist Goals Call Center Specialist Goals Time Frame: Aug 22, 2018 Bathing(FIM): 5 Upper Body Dressing(FIM): 5 Lower Body Dressing(FIM): 5 Toileting(FIM): 5 Toilet/Commode Transfer(FIM): 5 Shower Transfer(FIM): 5 Additional Goals: 1-Demonstrate ADL Tasks, 2-Verbalize Understanding, 3- ImproveStrength/Carlos 1=Demonstrate adherence to instructed precautions during ADL tasks. 2=Patient will verbalize/demonstrate understanding of assistive devices/ modifications for ADL. 3=Patient will improve strength/tolerance for activity to enable patient to perform ADL's. OT Education/Plan Problem List/Assessment Assessment: Decreased Safety Aware, Decreased UE Strength, Dependent Transfers , Impaired Self-Care Skills Pt to benefit from skilled OT intervention for ADL training, transfers, and strengthening to maximize level of function and allow safe discharge plan. Discharge Recommendations Plan/Recommendations: Continue POC Treatment Plan/Plan of Care Treatment,Training & Education: Yes Patient would benefit from OT for education, treatment and training to promote independence in ADL's, mobility, safety and/or upper extremity function for ADL' s. Plan of Care: ADL Retraining, Functional Mobility, UE Funct Exercise/Act Treatment Duration: Aug 22, 2018 Frequency: 5 times per week Estimated Hrs Per Day: .25 hour per day Rehab Potential: Fair Time/GCodes Start Time: 15:00 Stop Time: 15:20 Total Time Billed (hr/min): 20 Billed Treatment Time 1 visit, FOZIA(20minutes) SAMANTHA [place] OT Aug 12, 2018 15:43
--- NOTE | 2018-08-12 15:47 | Physical Therapy Evaluation ---
PT Evaluation-General Medical Diagnosis Admission Date Jul 23, 2018 at 21:00 Medical Diagnosis: PNA, Hypoxia Onset Date: Jul 23, 2018 Therapy Diagnosis Therapy Diagnosis: decreased mobility Height/Weight Height (Feet): 5 Height (Inches): 2.00 Weight (Pounds): 221 Weight (Ounces): 0.0 Precautions Precautions/Isolations: Fall Prevention, Standard Precautions Weight Bear Status Right Lower Extremity: Right Full Weight Bearing Left Lower Extremity: Left Full Weight Bearing Referral Physician: Bailee Haider DO Reason for Referral: Evaluation/Treatment Medical History Pertinent Medical History: COPD, DM, GERD, HTN, Neuropathy, Renal Insufficiency , Smoking Reviewed History: Yes Social History Home: Single Level Current Living Status: Children Entry Into Home: Stairs Without Railing PT Steps Into Home: 2 Prior/Core FIM Prior Level of Function Therapy Code Descriptions/Definitions Functional [place] Measure: 0=Not Assessed/NA 4=Minimal Assistance 1=Total Assistance 5=Supervision or Setup 2=Maximal Assistance 6=Modified [place] 3=Moderate Assistance 7=Complete [place] Therapy Quality Codes: 6 Independent with activity with or without an assistive device 5 Patient requires set up or clean up by helper. Patient completes activity by themselves 4 Supervision or touching assist (CGA). [place] provide cues , steadying assist 3 The helper provides less than half the effort to complete the activity 2 The helper provides more than half the effort to complete the activity 1 Dependent. The helper does all the effort to complete an activity 7 Patient refused to complete or attempt activity 9 The patient did not perform the activity before the current illness or injury 88 Not attempted due to Medical conditions or safety concerns Functional Abilities and Goals: Independent: Patient completed the activities by him/herself, with or without an assistive device, with no assistance from a helper. Needed Some Help: Patient needed partial assistance from another person to complete activities. Dependent: A helper completed the activities for the patient. Unknown: Not Applicable: Bed Mobility: 7 Transfers (B,C,W/C) (FIM): 7 Gait: 7 Stairs: 7 Indoor Mobility (Ambulation): Independent Stairs: Independent Prior Devices Use: None PT Evaluation-Current Subjective Pt in recliner and had just completed with OT. Pt agrees to PT. Pain Numeric Pain Scale: 0-No Pain Location: No Pain Reported Pt/Family Goals Pt to return home Objective Patient Orientation: Person, Confused ROM/Strength ROM Lower Extremities WNL Strength Lower Extremities RLE quads 4/5, hamstrings 4-/5, DF/PF 4/5. LLE quads, hamstrings, DF/PF 4/5 Integumentary/Posture Bowel Incontinence: No Bladder Incontinence: No Neuromuscular (Tone, Coordination, Reflexes) NT Sensory Vision: Wears Glasses Hearing: Functional Sensation Right Lower Extremit: Impaired Sensation Left Lower Extremity: Impaired Transfers Therapy Code Descriptions/Definitions Functional [place] Measure: 0=Not Assessed/NA 4=Minimal Assistance 1=Total Assistance 5=Supervision or Setup 2=Maximal Assistance 6=Modified [place] 3=Moderate Assistance 7=Complete [place] Transfers (B, C, W/C) (FIM): 5 Scootin Sit to/from Stand: 5 Gait Mode of Locomotion: Walk Anticipated Mode of Locomotion: Walk Gait (FIM): 5 Distance (FIM): 3=150 ft Distance: 300' Gait Level of Assist: 5 Gait Persons Needed: 1 Gait Assistive Device: FWW Comments/Gait Description No LOB, needs cues for direction. Balance Sitting Static: Good Sitting Dynamic: Good Standing Static: Good Standing Dynamic: Good Assessment/Needs Pt requires increased time to perform activity due to cognitive status. Pt is confused repeating questions that SPT asks. Pt in recliner and was able to perform sit<>stand transfer with SBA to FWW. Pt amb 300' with FWW and SBA. Pt did require one sitting recovery period during amb. Pt returned to room and requested to sit on EOB. Pt has all needs met and bed alarm is on. PT to increase activity as pt is able to tolerate. Rehab Potential: Good Post Rehab Potential-Barriers: co-morbidities, long current hospital stay PT Short Term Goals Short Term Goals Time Frame: Aug 19, 2018 Transfers (B,C,W/C) (FIM): 6 Gait (FIM): 5 Distance (FIM): 3=150 ft Gait Distance Comment: 350' Gait Level of Assist: 5 Gait Assistive Device: None, FWW PT Plan Problem List Problem List: Activity Tolerance, Functional Strength, Safety, Balance, Gait, Transfer, Bed Mobility, ROM Treatment/Plan Treatment Plan: Continue Plan of Care Treatment Plan: Bed Mobility, Education, Functional Activity Carlos, Functional Strength, Gait, Safety, Therapeutic Exercise, Transfers Treatment Duration: Aug 19, 2018 Frequency: 6 times per week Estimated Hrs Per Day: .25 hour per day (15-30') Patient and/or Family Agrees t: Yes Safety Risks/Education Patient Education: Gait Training, Transfer Techniques, Correct Positioning, Safety Issues Teaching Recipient: Patient Teaching Methods: Demonstration, Discussion Response to Teaching: Reinforcement Needed Discharge Recommendations Plan Patient will perform bed mobility and transfer training, balance and endurance training, functional strengthening, stair training, gait training, and education , to improve functional mobility and independence at home. Therapy D/C Recommendations: Snf Placement, Group Home (TCU/NH) Time/GCodes Time In: 1521 Time Out: 1538 Total Billed Treatment Time: 17 Total Billed Treatment 1 visit EVL 17 min SHEA LOZOYA PT Aug 12, 2018 15:47
--- NOTE | 2018-08-12 19:13 | Progress Note (SOAP) ---
Subjective Date Seen by a Provider: Aug 12, 2018 Time Seen by a Provider: 12:45 Subjective/Events-last exam Fwup pneumonia with pleural effusions, hypoxia, influenza A, COPD, uncontrolled DM--insulin requiring, anoxic encephalopathy, chronic renal failure, malignant hypertension, acute delirium. Had fall this morning. Calm but confused. Objective Exam Vital Signs Date Time Temp Pulse Resp B/P (MAP) Pulse Ox O2 Delivery O2 Flow Rate FiO2 08/12/18 16:10 97.3 60 18 113/73 (86) 97 Room Air 08/12/18 11:25 98.1 78 22 146/81 (102) 99 Room Air 08/12/18 08:15 98 Room Air 08/12/18 08:15 60 98 21 08/12/18 08:00 97.8 71 18 148/78 (101) 98 Room Air 08/12/18 00:00 97.2 60 20 119/85 (96) 98 Room Air 08/11/18 21:00 94 Room Air I & O 08/12/18 07:00 Intake Total 1150 ml Balance 1150 ml Capillary Refill : Less Than 3 SecondsLess Than 3 Seconds General Appearance: No Apparent Distress Neck: Supple Respiratory: Lungs Clear Cardiovascular: Regular Rate, Rhythm Gastrointestinal: normal bowel sounds, non tender, soft Extremity: No Calf Tenderness Neurologic/Psychiatric: Alert, Disoriented (confused) Skin: Warm/Dry Results Lab Laboratory Tests 08/11/18 20:18: Glucometer 203H 08/12/18 05:05: White Blood Count 6.3, Red Blood Count 2.78L, Hemoglobin 8.2L, Hematocrit 25L, Mean Corpuscular Volume 90, Mean Corpuscular Hemoglobin 30, Mean Corpuscular Hemoglobin Concent 33, Red Cell Distribution Width 14.9H, Platelet Count 325, Mean Platelet Volume 8.9, Neutrophils (%) (Auto) 55, Lymphocytes (%) (Auto) 35, Monocytes (%) (Auto) 8, Eosinophils (%) (Auto) 3, Basophils (%) (Auto) 0, Neutrophils # (Auto) 3.4, Lymphocytes # (Auto) 2.2, Monocytes # (Auto) 0.5, Eosinophils # (Auto) 0.2, Basophils # (Auto) 0.0, Sodium Level 134L, Potassium Level 4.5, Chloride Level 109H, Carbon Dioxide Level 19L, Anion Gap 6, Blood Urea Nitrogen 52H, Creatinine 2.45H, Estimat Glomerular Filtration Rate 21, BUN/ Creatinine Ratio 21, Glucose Level 47*L, Calcium Level 8.0L, Corrected Calcium 9.6, Total Bilirubin 0.3, Aspartate Amino Transf (AST/SGOT) 11, Alanine Aminotransferase (ALT/SGPT) < 6, Alkaline Phosphatase 72, Total Protein 6.0L, Albumin 2.0L 08/12/18 06:45: Glucometer 80 08/12/18 11:27: Glucometer 164H 08/12/18 16:33: Glucometer 242H Microbiology 07/23/18 Blood Culture - Final, Complete No growth 07/27/18 Gram Stain - Final, Complete 07/27/18 Body Fluid Culture - Final, Complete No growth 07/26/18 MRSA Screen - Final, Complete MRSA not isolated 08/05/18 Urine Culture - Final, Complete YEAST Assessment/Plan Assessment/Plan Assess & Plan/Chief Complaint 1. Acute Bilateral Pneumonia with Bilateral Pleural Effusions--improved 2. Hypoxia--oxygen sats stable on RA 3. COPD--stable 4. Influenza A--treated 5. Malignant Hypertension--meds adjusted and BP improving, will need updated sleep study as outpatient 6. Diabetes mellitus--stable 7. Back Pain--tylenol prn 8. Anemia--improved after transfusion 9. Chronic Renal Failure--will need nephrology on DC 10. Acute Delirium--added geodon and is much calmer but still confused 11. Really needs SNF for DC as is high risk for fall as well as return to hospital if DC to home and requires too much care for daughters Clinical Quality Measures Admission Status Admission Dx 1. Acute Bilateral Pneumonia--cover with maxipime due to recent hospital stay 2. Acute Hypoxia--on oxygen and SVNs 3. Influenza A--on tamiflu 4. Hypertension--restart coreg 5. Diabetes mellitus--insulin requiring--start levemir and SSI 6. Anoxic Encephalopathy--stable DVT/VTE Risk/Contraindication: Risk Factor Score Per Nursin RFS Level Per Nursing on Admit: 4+=Very High MIRELA LYLE DO Aug 12, 2018 19:13
[2018-08-12] MEDS: ENOXAPARIN 30 MG/0.3 ML (LOVENOX) SYR SC SCH (21:40)
[2018-08-12] MEDS: doxAzosin 2 MG (CARDURA) TAB PO SCH (21:42)
[2018-08-13 00:35] VITALS: BP 121/78
[2018-08-13 05:54] LABS: BASOPHILS % (AUTO) 0 % (0-10); EOSINOPHILS # (AUTO) 0.2 10^3/uL (0.0-0.3); EOSINOPHILS % (AUTO) 3 % (0-10); HEMATOCRIT 25 % (35-52); HEMOGLOBIN 8.3 G/DL (11.5-16.0); LYMPHOCYTES # (AUTO) 1.6 X 10^3 (1.0-4.0); LYMPHOCYTES % (AUTO) 28 % (12-44); MEAN CORPUSCULAR HEMOGLOBIN 30 PG (25-34); MEAN CORPUSCULAR HGB CONC 34 G/DL (32-36); MEAN CORPUSCULAR VOLUME 89 FL (80-99); MEAN PLATELET VOLUME 9.1 FL (7.4-10.4); MONOCYTES # (AUTO) 0.3 X 10^3 (0.0-1.0); MONOCYTES % (AUTO) 6 % (0-12); NEUTROPHILS # (AUTO) 3.6 X 10^3 (1.8-7.8); NEUTROPHILS % (AUTO) 63 % (42-75); PLATELET COUNT 357 10^3/uL (130-400); RED CELL DISTRIBUTION WIDTH 15.1 % (10.0-14.5); WHITE BLOOD COUNT 5.6 10^3/uL (4.3-11.0)
[2018-08-13 06:11] LABS: ALANINE AMINOTRANSFERASE < 6 U/L (0-55); ALBUMIN 2.2 GM/DL (3.2-4.5); ALKALINE PHOSPHATASE 84 U/L (40-136); BILIRUBIN,TOTAL 0.3 MG/DL (0.1-1.0); BUN/CREATININE RATIO 18; CARBON DIOXIDE 18 MMOL/L (21-32); CHLORIDE 108 MMOL/L (98-107); CREATININE SERUM 2.95 MG/DL (0.60-1.30); GFR ESTIMATED 17; GLUCOSE 176 MG/DL (70-105); POTASSIUM 5.1 MMOL/L (3.6-5.0); SODIUM 134 MMOL/L (135-145); TOTAL PROTEIN 6.3 GM/DL (6.4-8.2)
[2018-08-13] MEDS: inSUlin ASPART (NovoLOG) 1 UNIT/0.01 ML (CHARGE PER UNIT) SC SCH ×4 (06:21→21:25)
[2018-08-13] MEDS: ZIPRASIDONE 20 MG (GEODON) CAP PO SCH ×2 (06:33→18:24)
[2018-08-13 06:34] VITALS: BP 139/75
[2018-08-13] MEDS: hydrALAZINE (APRESOLINE) 25 MG TAB PO SCH ×3 (06:34→21:12)
[2018-08-13 08:00] VITALS: BP 135/68
--- NOTE | 2018-08-13 09:19 | NUR ---
PT VERY CONFUSED. EATING FAIR, 63% MEALS, BUT WEIGHT IS STABLE. INTAKE MEETING NEEDS AT THIS TIME WITH GLUCERNA. CONT SAME.
--- NOTE | 2018-08-13 09:37 | Physical Therapy Daily Note ---
PT Daily Note-Current Subjective Pt in bed and agrees to PT. Pain Numeric Pain Scale: 0-No Pain Location: No Pain Reported Mental Status Patient Orientation: Person, Confused Transfers Therapy Code Descriptions/Definitions Functional [place] Measure: 0=Not Assessed/NA 4=Minimal Assistance 1=Total Assistance 5=Supervision or Setup 2=Maximal Assistance 6=Modified [place] 3=Moderate Assistance 7=Complete [place] Therapy Quality Codes: 6 Independent with activity with or without an assistive device 5 Patient requires set up or clean up by helper. Patient completes activity by themselves 4 Supervision or touching assist (CGA). [place] provide cues , steadying assist 3 The helper provides less than half the effort to complete the activity 2 The helper provides more than half the effort to complete the activity 1 Dependent. The helper does all the effort to complete an activity 7 Patient refused to complete or attempt activity 9 The patient did not perform the activity before the current illness or injury 88 Not attempted due to Medical conditions or safety concerns Scootin Supine to/from Sit: 5 Weight Bearing Right Lower Extremity: Right Full Weight Bearing Left Lower Extremity: Left Full Weight Bearing Assessment Current Status: Regressing Pt presents more confused today, with increased repeating of questions asked by PT. Pt was able to perform bed mobility SBA from supine to EOB with increased time to process. Pt EOB, SPT and PT using VC and manual cues for pt to stand and pt would not. Pt even got defensive/angry when PT touch pt leg for manual cue to move. After 10+ min of trying to get pt to stand, pt was transferred back to supine max A x2. Pt has all needs met in bed. PT Short Term Goals Short Term Goals Time Frame: Aug 19, 2018 Transfers (B,C,W/C) (FIM): 6 Gait (FIM): 5 Distance (FIM): 3=150 ft Gait Distance Comment: 350' Gait Level of Assist: 5 Gait Assistive Device: None, FWW PT Plan Problem List Problem List: Activity Tolerance, Functional Strength, Safety, Balance, Gait, Transfer, Bed Mobility, ROM Treatment/Plan Treatment Plan: Continue Plan of Care Treatment Plan: Bed Mobility, Education, Functional Activity Carlos, Functional Strength, Gait, Safety, Therapeutic Exercise, Transfers Treatment Duration: Aug 19, 2018 Frequency: 6 times per week Estimated Hrs Per Day: .25 hour per day (15-30') Patient and/or Family Agrees t: Yes Time/GCodes Time In: 820 Time Out: 834 Total Billed Treatment Time: 14 Total Billed Treatment 1 visit FA 14 min LISA NARANJO PT Aug 13, 2018 09:37
[2018-08-13] MEDS: amLODIPine 10 MG (NORVASC) TAB PO SCH (09:57)
[2018-08-13] MEDS: PANTOPRAZOLE 40 MG (PROTONIX) TAB PO SCH (09:57)
[2018-08-13] MEDS: DULoxetine 30 MG (CYMBALTA) CAP PO SCH (09:57)
[2018-08-13] MEDS: CARVEDILOL 12.5 MG (COREG) TABLET PO SCH ×2 (09:57→21:11)
--- NOTE | 2018-08-13 12:42 | Progress Note-Cardiology ---
Cardiology SOAP Progress Note Subjective: Lethargic this morning. Once awakened drifts back to sleep. Denies any c/o pain. Objective: I&O/Vital Signs 08/13/18 08/13/18 08/13/18 08/13/18 06:34 08:00 09:00 13:04 Temp 96.6 Pulse 77 73 Resp 20 B/P (MAP) 139/75 (96) 135/68 (90) Pulse Ox 97 O2 Delivery Room Air Room Air Room Air 08/13/18 16:00 Temp 97.6 Pulse 64 Resp 18 B/P (MAP) 113/76 (88) Pulse Ox 96 O2 Delivery Room Air 08/13/18 00:00 Intake Total 1080 ml Balance 1080 ml Weight (Pounds): 224 Weight (Ounces): 3.0 Weight (Calculated Kilograms): 101.925668 Constitutional: other (Oriented to person and place; speech somewhat confused ( seems to find hard to distinguish between 1st person and 2nd person pronouns)) Respiratory: No accessory muscle use, No respiratory distress; chest expansion is symmetric, chest is bilaterally symmetric, other (diminished lower lobes bilat; poor inspiratory effort) Cardiovascular: No JVD; S1 and S2, other Gastrointestional: soft, audible bowel sounds Extremities: swelling (mild bilat LE swelling) Neurologic/Psychiatric: other (moves extremities) Skin: No rash, No ulcerations Results/Procedures: Labs Laboratory Tests 08/12/18 20:16: Glucometer 272H 08/13/18 05:45: White Blood Count 5.6, Red Blood Count 2.79L, Hemoglobin 8.3L, Hematocrit 25L, Mean Corpuscular Volume 89, Mean Corpuscular Hemoglobin 30, Mean Corpuscular Hemoglobin Concent 34, Red Cell Distribution Width 15.1H, Platelet Count 357, Mean Platelet Volume 9.1, Neutrophils (%) (Auto) 63, Lymphocytes (%) (Auto) 28, Monocytes (%) (Auto) 6, Eosinophils (%) (Auto) 3, Basophils (%) (Auto) 0, Neutrophils # (Auto) 3.6, Lymphocytes # (Auto) 1.6, Monocytes # (Auto) 0.3, Eosinophils # (Auto) 0.2, Basophils # (Auto) 0.0, Sodium Level 134L, Potassium Level 5.1H, Chloride Level 108H, Carbon Dioxide Level 18L, Anion Gap 8, Blood Urea Nitrogen 53H, Creatinine 2.95#H, Estimat Glomerular Filtration Rate 17, BUN /Creatinine Ratio 18, Glucose Level 176H, Calcium Level 8.0L, Corrected Calcium 9.4, Total Bilirubin 0.3, Aspartate Amino Transf (AST/SGOT) 11, Alanine Aminotransferase (ALT/SGPT) < 6, Alkaline Phosphatase 84, Total Protein 6.3L, Albumin 2.2L 08/13/18 05:51: Glucometer 195H 08/13/18 11:30: Glucometer 224H 08/13/18 17:17: Glucometer 165H Microbiology 07/23/18 Blood Culture - Final, Complete No growth 07/27/18 Gram Stain - Final, Complete 07/27/18 Body Fluid Culture - Final, Complete No growth 07/26/18 MRSA Screen - Final, Complete MRSA not isolated 08/05/18 Urine Culture - Final, Complete YEAST A/P: Assessment: Echolalia and mild confusion, probably due to anoxic brain injury, being managed by the Med Svce Ac on ch renal failure, being managed by the Med Svce. Acute component is likely due to malignant hypertension Marked systemic hypertension / malignant hypertension (worsening renal function ) - improved Marked pulmonary hypertension, suspected to be due to obesity-hypoventilation and DIANNA Echocardiogram of 08-06-18 (Dr Morrow) showed LVEF 55-65%. Grade 2 diastolic dysfunction. Mild to Mod TR. PASP 79 mmHg Pneumonia - management per medical/pulmonary services Anemia of undetermined etiology Acute on chronic exacerbation of COPD Influenza A - management per medical services DM 2 Plan: * We have had a detailed discussion of her CV issues with pt and her daughter, and with Dr Haider * BP improved after med changes, continue * We recommend sleep studies and treatment of sleep apnea, if found * Monitor labs * Cardiac status clinically stable Physician Assessment Physician Assessment No cp or palp or syncope or shortness of breath at rest Feels better than before Lungs: good air entry, diminished at the bases Cor: reg Ext: no c/c, mild edema A&R * As documented in our note above that I updated (italics) and as noted below * Continue current regimen * Monitor labs JASON LYNCH STOCK MOVER Aug 13, 2018 12:42 TIERNEY BEVERLY MD [facility] Aug 13, 2018 18:33
[2018-08-13] MEDS ORDERED: CARV12.53 PO (12:59)
[2018-08-13] MEDS ORDERED: ZIPR20CA24 PO (12:59)
[2018-08-13] MEDS ORDERED: INSU100V16 SC (12:59)
[2018-08-13] MEDS ORDERED: AMLO10TA7 PO (12:59)
[2018-08-13] MEDS ORDERED: HYDR-3923 PO (12:59)
[2018-08-13] MEDS ORDERED: DOXA2TAB2 PO (12:59)
--- NOTE | 2018-08-13 13:04 | Discharge Inst-Skilled Nursing ---
Discharge Inst-Skilled NF Patient Instructions Patient Problems: Anoxic Brain Injury Delirium and Confusion COPD Renal Failure Fall Risk Diabetes mellitus--insulin requiring Malignant Hypertension Consult/Follow Up/Orders Follow Up Appt.: 1 week with me 1week with Dr. Ceja Skilled NF Admit to: [facility] [place] Certification ([facility]) I certify that [facility] services are required to be given on an inpatient basis because of the above named patient's need for long-term care on a continuing basis for the conditions(s) for which he/she was receiving inpatient hospital services prior to his/her transfer to the [facility]. [facility] Facility Order: Nursing Services, Transmission Specialist-Evaluate & Treat, Physical Therapy-Evaluate & Treat, Speech Language-Evaluate & Treat Oxygen Delivery Method: Room Air Discharge Diet: ADA Diet, Cardiac Diet Daily Activity as Tolerated: Yes New & Resume Previous Orders Other Instructions Accuchecks AC with sliding scale insulin Chem 7 in 1 week CBC in 2 weeks SVN with duoneb q4hrs prn BP checks 3 times a week Twice weekly weight checks Bailee Haider Aug 13, 2018 12:59 BAILEE HAIDER DO Aug 13, 2018 13:04
--- NOTE | 2018-08-13 14:10 | Occupational Ther Daily Note ---
OT Current Status-Daily Note Subjective No pain reported. Appearance Pt. in bed asleep. OT has difficulty waking her up. Mental Status/Objective Patient Orientation: Confused, Unable to Assess Therapy Code Descriptions/Definitions Functional [place] Measure: 0=Not Assessed/NA 4=Minimal Assistance 1=Total Assistance 5=Supervision or Setup 2=Maximal Assistance 6=Modified [place] 3=Moderate Assistance 7=Complete [place] ADL-Treatment Eating (FIM): 5 Transfers (B, C, W/C) (FIM): 5 Other Treatment Pt. requires great encouragement to wake up to eat lunch. Pt. had high blood sugar per nursing and needed insulin and to eat. Pt. indicates that she does not want to eat, but is encouraged. Pt. does transfer to side of bed with SBA, and set up for meal tray. Pt. only takes several bites and then pushes tray away. Pt. is encouraged but declines. Pt. lays herself back into bed. All needs are met. Pt. declines changing clothing or bathing. States, "no, no." Education OT Patient Education: Correct positioning, Modified ADL techniques, Progress toward Goal/Update tx plan, Purpose of tx/functional activities, Reviewed precautions, Transfer techniques Teaching Recipient: Patient Teaching Methods: Demonstration, Discussion Response to Teaching: Verbalize Understanding OT Short Term Goals Short Term Goals Transfers (B,C,W/C) (FIM): 6 1=Demonstrate adherence to instructed precautions during ADL tasks. 2=Patient will verbalize/demonstrate understanding of assistive devices/ modifications for ADL. 3=Patient will improve strength/tolerance for activity to enable patient to perform ADL's. OT Fci Goals Fci Goals Time Frame: Aug 22, 2018 Bathing(FIM): 5 Upper Body Dressing(FIM): 5 Lower Body Dressing(FIM): 5 Toileting(FIM): 5 Toilet/Commode Transfer(FIM): 5 Shower Transfer(FIM): 5 Additional Goals: 1-Demonstrate ADL Tasks, 2-Verbalize Understanding, 3- ImproveStrength/Carlos 1=Demonstrate adherence to instructed precautions during ADL tasks. 2=Patient will verbalize/demonstrate understanding of assistive devices/ modifications for ADL. 3=Patient will improve strength/tolerance for activity to enable patient to perform ADL's. OT Education/Plan Problem List/Assessment Assessment: Decreased Activ Tolerance, Impaired Cognition, Impaired I ADL's, Impaired Self-Care Skills Pt to benefit from skilled OT intervention for ADL training, transfers, and strengthening to maximize level of function and allow safe discharge plan. Discharge Recommendations Plan/Recommendations: Continue POC Therapy D/C Recommendations: 24 hr Supervision Treatment Plan/Plan of Care Treatment,Training & Education: Yes Patient would benefit from OT for education, treatment and training to promote independence in ADL's, mobility, safety and/or upper extremity function for ADL' s. Plan of Care: ADL Retraining, Functional Mobility, UE Funct Exercise/Act Treatment Duration: Aug 22, 2018 Frequency: 5 times per week Estimated Hrs Per Day: .25 hour per day Rehab Potential: Fair Time/GCodes Start Time: 11:50 Stop Time: 12:05 Total Time Billed (hr/min): 15 Billed Treatment Time 1, AARON RICH OT Aug 13, 2018 14:10
[2018-08-13 16:00] VITALS: BP 113/76
--- NOTE | 2018-08-13 16:36 | NUR ---
CM/SS, summary. Visited with both daughters Alla Amaya and Boo Nguyen this a.m. by conference call. All in agreement patient is not stable to return directly home at discharge. They were supportive of patient going to SNF for therapies, very hopeful it was not permanent and that patient could return home eventually. Alla and Boo indicated their strong preference for SNF to be [facility]. House Shorer contacted admission coord/Anju and referral was completed this a.m. Considering patient history there of recent admission, 6 hour stay and left AMA, Staying Machine Operator was involved in reviewing regarding repeat acceptance. Provided all additional information requested. Spoke with Anju 1630, she has a meeting set up with daughters at 1730 to discuss admission and goals. Depending on results of meeting, decision should be confirmed in a.m. Complex discharge due to patient's physical and mental status, young age of 52 and jail environment. Goal is rehab to home if patient health can remain on a forward progression. CARE Assessment is current. Followup in a.m.
--- NOTE | 2018-08-13 19:14 | Progress Note (SOAP) ---
Subjective Date Seen by a Provider: Aug 13, 2018 Time Seen by a Provider: 12:45 Subjective/Events-last exam Fwup pneumonia with pleural effusions, hypoxia, influenza A, COPD, uncontrolled DM--insulin requiring, anoxic encephalopathy, chronic renal failure, malignant hypertension, acute delirium. Resting in bed. Drowsy but will awaken easily and answer questions--sometimes appropriately and sometimes justs repeats what I say. Objective Exam Vital Signs Date Time Temp Pulse Resp B/P (MAP) Pulse Ox O2 Delivery O2 Flow Rate FiO2 08/13/18 16:00 97.6 64 18 113/76 (88) 96 Room Air 08/13/18 13:04 Room Air 08/13/18 09:00 Room Air 08/13/18 08:00 96.6 73 20 135/68 (90) 97 Room Air 08/13/18 06:34 77 139/75 (96) 08/13/18 00:35 97.2 64 20 121/78 (92) 96 Room Air 08/12/18 21:44 78 168/74 (105) 08/12/18 21:00 Room Air I & O 08/13/18 07:00 Intake Total 1380 ml Balance 1380 ml Capillary Refill : Less Than 3 SecondsLess Than 3 Seconds General Appearance: No Apparent Distress Neck: Supple Respiratory: Lungs Clear Cardiovascular: Regular Rate, Rhythm Gastrointestinal: normal bowel sounds, non tender, soft Extremity: Non Tender, No Calf Tenderness, No Pedal Edema Neurologic/Psychiatric: Alert Skin: Warm/Dry Results Lab Laboratory Tests 08/12/18 20:16: Glucometer 272H 08/13/18 05:45: White Blood Count 5.6, Red Blood Count 2.79L, Hemoglobin 8.3L, Hematocrit 25L, Mean Corpuscular Volume 89, Mean Corpuscular Hemoglobin 30, Mean Corpuscular Hemoglobin Concent 34, Red Cell Distribution Width 15.1H, Platelet Count 357, Mean Platelet Volume 9.1, Neutrophils (%) (Auto) 63, Lymphocytes (%) (Auto) 28, Monocytes (%) (Auto) 6, Eosinophils (%) (Auto) 3, Basophils (%) (Auto) 0, Neutrophils # (Auto) 3.6, Lymphocytes # (Auto) 1.6, Monocytes # (Auto) 0.3, Eosinophils # (Auto) 0.2, Basophils # (Auto) 0.0, Sodium Level 134L, Potassium Level 5.1H, Chloride Level 108H, Carbon Dioxide Level 18L, Anion Gap 8, Blood Urea Nitrogen 53H, Creatinine 2.95#H, Estimat Glomerular Filtration Rate 17, BUN /Creatinine Ratio 18, Glucose Level 176H, Calcium Level 8.0L, Corrected Calcium 9.4, Total Bilirubin 0.3, Aspartate Amino Transf (AST/SGOT) 11, Alanine Aminotransferase (ALT/SGPT) < 6, Alkaline Phosphatase 84, Total Protein 6.3L, Albumin 2.2L 08/13/18 05:51: Glucometer 195H 08/13/18 11:30: Glucometer 224H 08/13/18 17:17: Glucometer 165H Microbiology 07/23/18 Blood Culture - Final, Complete No growth 07/27/18 Gram Stain - Final, Complete 07/27/18 Body Fluid Culture - Final, Complete No growth 07/26/18 MRSA Screen - Final, Complete MRSA not isolated 08/05/18 Urine Culture - Final, Complete YEAST Assessment/Plan Assessment/Plan Assess & Plan/Chief Complaint 1. Acute Bilateral Pneumonia with Bilateral Pleural Effusions--improved 2. Hypoxia--oxygen sats stable on RA 3. COPD--stable 4. Influenza A--treated 5. Malignant Hypertension--meds adjusted and BP improving, will need updated sleep study as outpatient 6. Diabetes mellitus--stable 7. Back Pain--tylenol prn 8. Anemia--improved after transfusion 9. Chronic Renal Failure--will need nephrology on DC 10. Acute Delirium--added geodon and is much calmer but still confused 11. DC plans for [place] Clinical Quality Measures Admission Status Admission Dx 1. Acute Bilateral Pneumonia--cover with maxipime due to recent hospital stay 2. Acute Hypoxia--on oxygen and SVNs 3. Influenza A--on tamiflu 4. Hypertension--restart coreg 5. Diabetes mellitus--insulin requiring--start levemir and SSI 6. Anoxic Encephalopathy--stable DVT/VTE Risk/Contraindication: Risk Factor Score Per Nursin RFS Level Per Nursing on Admit: 4+=Very High MIRELA LYLE DO Aug 13, 2018 19:14
[2018-08-13] MEDS: doxAzosin 2 MG (CARDURA) TAB PO SCH (21:11)
[2018-08-13] MEDS: ENOXAPARIN 30 MG/0.3 ML (LOVENOX) SYR SC SCH (21:12)
[2018-08-13] MEDS: 1/2 NS IV SOLUTION 1,000 ML IV SCH (21:14)
[2018-08-14 00:52] VITALS: BP 127/79
[2018-08-14 05:42] LABS: ALANINE AMINOTRANSFERASE < 6 U/L (0-55); ALBUMIN 2.2 GM/DL (3.2-4.5); ALKALINE PHOSPHATASE 73 U/L (40-136); BILIRUBIN,TOTAL 0.3 MG/DL (0.1-1.0); BUN/CREATININE RATIO 19; CALCIUM 8.1 MG/DL (8.5-10.1); CARBON DIOXIDE 16 MMOL/L (21-32); CHLORIDE 108 MMOL/L (98-107); CREATININE SERUM 2.74 MG/DL (0.60-1.30); GFR ESTIMATED 18; GLUCOSE 124 MG/DL (70-105); POTASSIUM 4.9 MMOL/L (3.6-5.0); SODIUM 133 MMOL/L (135-145); TOTAL PROTEIN 6.3 GM/DL (6.4-8.2)
[2018-08-14] MEDS: inSUlin ASPART (NovoLOG) 1 UNIT/0.01 ML (CHARGE PER UNIT) SC SCH ×2 (06:24→11:38)
[2018-08-14] MEDS: hydrALAZINE (APRESOLINE) 25 MG TAB PO SCH (06:30)
[2018-08-14 08:00] VITALS: BP 147/89
--- NOTE | 2018-08-14 09:00 | NUR ---
IVF INFUSED. PORT DEACCESSED FOR DC TO [facility]. AWAITING ORDERS.
[2018-08-14] MEDS: amLODIPine 10 MG (NORVASC) TAB PO SCH (09:46)
[2018-08-14] MEDS: DULoxetine 30 MG (CYMBALTA) CAP PO SCH (09:47)
[2018-08-14] MEDS: 1/2 NS IV SOLUTION 1,000 ML IV SCH (09:47)
[2018-08-14] MEDS: ZIPRASIDONE 20 MG (GEODON) CAP PO SCH (09:47)
[2018-08-14] MEDS: CARVEDILOL 12.5 MG (COREG) TABLET PO SCH (09:47)
[2018-08-14] MEDS: PANTOPRAZOLE 40 MG (PROTONIX) TAB PO SCH (09:47)
--- NOTE | 2018-08-14 10:33 | Physical Therapy Progress Note ---
Therapy Progress Note [id number] Entered pt's room, very pleasant to begin with and agreeable to sit at EOB, began repeating everything this keno writer/runner said, notable confusion, word salad at times. Pt started becoming agitated and angry, refused to move any extremities or sit at EOB. Touched pt's R leg to begin assisting her to move it, pt kicked out and stated "refusal refusal refusal!" Unable to convince pt to participate in therapy this am BISMARK ROSS WEED SPRAYER Aug 14, 2018 10:33
--- NOTE | 2018-08-14 11:13 | NUR ---
CM/SS. Patient discharged to new Medicare skilled placement with [facility] via their transport. CARE Assessment remains current from recent placement. IMM was signed yesterday p.m., patient is dressed today and ready to leave hospital. Spoke with daughter Alla by phone this a.m., daughter Boo Nguyen will call [facility]/Anju about assisting with paperwork. Unit RN updated for grain picker time.
--- NOTE | 2018-08-14 12:07 | NUR ---
AWAITING [facility] FOR TRANSPORT. ATTEMPTED TO CALL REPORT. NURSE STATES SHE IS TOO BUSY TO RECEIVE REPORT.
[2018-08-14] MEDS ORDERED: INSU100V16 SC (12:42)
--- NOTE | 2018-08-14 12:42 | NUR ---
REPORT TO MIKAEL RYAN AT [facility].
--- NOTE | 2018-08-14 12:59 | Progress Note-Cardiology ---
Cardiology SOAP Progress Note Subjective: In bed. States she wants to go home. No c/o CP, dyspnea, palpitations, syncope or near syncope. Objective: I&O/Vital Signs 08/14/18 09:00 O2 Delivery Room Air 08/13/18 23:59 Intake Total 950 ml Balance 950 ml Weight (Pounds): 225 Weight (Ounces): 3.0 Weight (Calculated Kilograms): 102.611582 Constitutional: other (Oriented to person and place; speech somewhat confused ( seems to find hard to distinguish between 1st person and 2nd person pronouns)) Respiratory: No accessory muscle use, No respiratory distress; chest expansion is symmetric, chest is bilaterally symmetric, other (diminished lower lobes bilat; poor inspiratory effort) Cardiovascular: No JVD; S1 and S2, other Gastrointestional: soft, audible bowel sounds Extremities: swelling (mild bilat LE swelling) Neurologic/Psychiatric: other (moves extremities) Skin: No rash, No ulcerations Results/Procedures: Labs Laboratory Tests 08/13/18 17:17: Glucometer 165H 08/13/18 21:12: Glucometer 189H 08/14/18 05:04: Sodium Level 133L, Potassium Level 4.9, Chloride Level 108H, Carbon Dioxide Level 16L, Anion Gap 9, Blood Urea Nitrogen 53H, Creatinine 2.74H, Estimat Glomerular Filtration Rate 18, BUN/Creatinine Ratio 19, Glucose Level 124H, Calcium Level 8.1L, Corrected Calcium 9.5, Total Bilirubin 0.3, Aspartate Amino Transf (AST/SGOT) 12, Alanine Aminotransferase (ALT/SGPT) < 6, Alkaline Phosphatase 73, Total Protein 6.3L, Albumin 2.2L 08/14/18 11:16: Glucometer 157H Microbiology 07/23/18 Blood Culture - Final, Complete No growth 07/27/18 Gram Stain - Final, Complete 07/27/18 Body Fluid Culture - Final, Complete No growth 07/26/18 MRSA Screen - Final, Complete MRSA not isolated 08/05/18 Urine Culture - Final, Complete YEAST A/P: Assessment: Echolalia and mild confusion, probably due to anoxic brain injury, being managed by the Med Svce Ac on ch renal failure, being managed by the Med Svce. Acute component is likely due to malignant hypertension Marked systemic hypertension / malignant hypertension (worsening renal function ) - improved Marked pulmonary hypertension, suspected to be due to obesity-hypoventilation and DIANNA Echocardiogram of 08-06-18 (Dr Morrow) showed LVEF 55-65%. Grade 2 diastolic dysfunction. Mild to Mod TR. PASP 79 mmHg Pneumonia - management per medical/pulmonary services Anemia of undetermined etiology Acute on chronic exacerbation of COPD Influenza A - management per medical services DM 2 Plan: * We have had a detailed discussion of her CV issues with pt and her daughter, and with Dr Haider * BP improved after med changes, continue * We recommend sleep studies and treatment of sleep apnea, if found * Monitor labs * Cardiac status clinically stable JASON LYNCH Aug 14, 2018 12:59
--- NOTE | 2018-08-14 13:16 | Discharge Summary ---
Diagnosis/Chief Complaint Date of Admission Jul 23, 2018 at 21:00 Date of Discharge Discharge Date: Aug 13, 2018 Discharge Diagnosis 1. Acute Bilateral Pneumonia with Bilateral Pleural Effusions with Bilateral Chest Tubes--resolved 2. Hypoxia/Respiratory Distress--improved 3. COPD--stable 4. Influenza A--treated 5. Malignant Hypertension--improved 6. Diabetes mellitus with hypoglycemia--stable 7. Back Pain--improved after treatment for UTI 8. Anemia--stable after transfusion 9. Chronic Renal Failure--will need nephrology on DC 10. Acute Delirium/Anoxic Brain Injury--waxing and waning but doing better on mood stabilizer 11. UTI--resolved 12. History of Obstructive Sleep Apnea--will need updated sleep study as outpatient 13. Weakness/High Fall Risk--Discharge to SNF 14. Diastolic Dysfunction with Pulmonary Hypertension--likely from underlying Obstructive Sleep Apnea and Hypoventilation Syndrome 15. Chronic Left Cerebellar Infarct Reason Hospital Visit This is a 52 year old female who had a recent prolonged hospital stay for anoxic encephalopathy. She was having cough and shortness of air so she went to the urgent care for evaluation and was told she may have pneumonia and was given antibiotics. Her daughter called our office to get new tubing for her nebulizer machine and told us what was going on so we sent her for a CXR which confirmed pneumonia as well as possible pulmonary edema so she was instructed to go for stat lab. She returned to the hospital but was feeling worse so decided to go to the emergency room. In the ER she was found to have hypoxia with bilateral pulmonary infiltrates and was also influenza A positive. She is admitted for further treatment. Discharge Summary Hospital Course Hospital Course This is a 52 year old female who had a recent prolonged hospital stay for anoxic encephalopathy. She was having cough and shortness of air so she went to the urgent care for evaluation and was told she may have pneumonia and was given antibiotics. Her daughter called our office to get new tubing for her nebulizer machine and told us what was going on so we sent her for a CXR which confirmed pneumonia as well as possible pulmonary edema so she was instructed to go for stat lab. She returned to the hospital but was feeling worse so decided to go to the emergency room. In the ER she was found to have hypoxia with bilateral pulmonary infiltrates and was also influenza A positive. She was initially admitted to the medical floor and started on tamiflu for her Influenza A as well as well as maxipime for her pneumonia. She was initially admitted on oxygen via nasal cannula but her respiratory status worsened so she had to be switched to vapotherm and eventually transferred to the ICU and placed on BiPAP due to worsening infiltrates and pulmonary effusions. She had to have 2 chest tubes placed to assist in drainage of her pulmonary effusions and after this procedure she was able to be backed down to oxygen via a nasal cannula again. As her respiratory status improved, her kidney function as well as her blood pressure worsened. She was initially felt to have dehydration worsening her renal failure so she was given IV fluids but then had worsening shortness of air after the fluids and her creatinine did not improve. Her blood pressure worsened and she had to be placed on apresoline as well as numerous agents and cardiology consulted. Her echocardiogram did show pulmonary hypertension consistent with likely underlying DIANNA/Hypoventilation syndrome. It was felt that her worsening renal function was likely caused by her malignant hypertension and we discussed that she will need to see nephrology as an outpatient. She did require blood and iron transfusions during her hospital stay for an acute on chronic anemia. Her hemoglobin remains stable at 8.5 on discharge. Her hospital stay was also complicated by poor appetite with hypoglycemia so her long acting insulin had to be discontinued and she was on low dose sliding scale insulin with meals. Her hospital stay was also prolonged due to acute delirium likely related to her underlying anoxic brain injury as well as hospital psychosis. She had to be given a dose of haldol and ativan and then was started on geodon for mood stabilization. Following this her mood and confusion slowly improved and was stable at discharge. She is very weak and a high fall risk so it was decided that she would need discharge to a SNF as she required too much care for her daughters to care for her at home at this time. She will followup in my office in 1 week. Labs Laboratory Tests 08/11/18 15:46: Glucometer 157H 08/11/18 20:18: Glucometer 203H 08/12/18 05:05: Red Blood Count 2.78L, Hemoglobin 8.2L, Hematocrit 25L, Red Cell Distribution Width 14.9H, Sodium Level 134L, Chloride Level 109H, Carbon Dioxide Level 19L, Blood Urea Nitrogen 52H, Creatinine 2.45H, Glucose Level 47*L, Calcium Level 8.0L, Total Protein 6.0L, Albumin 2.0L 08/12/18 06:45: 08/12/18 11:27: Glucometer 164H 08/12/18 16:33: Glucometer 242H 08/12/18 20:16: Glucometer 272H 08/13/18 05:45: Red Blood Count 2.79L, Hemoglobin 8.3L, Hematocrit 25L, Red Cell Distribution Width 15.1H, Sodium Level 134L, Potassium Level 5.1H, Chloride Level 108H, Carbon Dioxide Level 18L, Blood Urea Nitrogen 53H, Creatinine 2.95#H, Glucose Level 176H, Calcium Level 8.0L, Total Protein 6.3L, Albumin 2.2L 08/13/18 05:51: Glucometer 195H 08/13/18 11:30: Glucometer 224H 08/13/18 17:17: Glucometer 165H 08/13/18 21:12: Glucometer 189H 08/14/18 05:04: Sodium Level 133L, Chloride Level 108H, Carbon Dioxide Level 16L, Blood Urea Nitrogen 53H, Creatinine 2.74H, Glucose Level 124H, Calcium Level 8.1L, Total Protein 6.3L, Albumin 2.2L 08/14/18 11:16: Glucometer 157H Procedures Bilateral Chest Tubes by Radiology--Dr. Mendoza Consultations Dr. Ceja--pulmonology Dr. Bear--Cardiology Dr. Mendoza--Radiology Discharge Physical Examination Allergies: Coded Allergies: codeine (Verified Allergy, Mild, ITCHING, Pt has received Lortab in the past, 07/02/18) Sulfa (Sulfonamide Antibiotics) (Verified Allergy, Unknown, HIVES, 02/07/18) Vitals & I&Os Vital Signs Date Time Temp Pulse Resp B/P (MAP) Pulse Ox O2 Delivery O2 Flow Rate FiO2 08/14/18 09:00 Room Air 08/14/18 00:52 97.6 66 20 127/79 (95) 97 08/12/18 08:15 21 08/09/18 00:00 1.00 General Appearance: Alert, Cooperative, No Acute Distress Respiratory: Clear to Auscultation Cardiovascular: Regular Rate Extremities: No Clubbing, No Cyanosis, No Edema Neuro: Other (using walker to ambulate) Psych/Mental Status: Mood NL Discharge Home Medications Reviewed and agree with Discharge Medication list on patient's Discharge Instruction sheet Instructions to Patient/Family Please see electronic discharge instructions given to patient. Clinical Quality Measures DVT/VTE Risk/Contraindication: Risk Factor Score Per Nursin RFS Level Per Nursing on Admit: 4+=Very High MIRELA LYLE DO Aug 14, 2018 13:15
--- NOTE | 2018-08-14 13:20 | NUR ---
CLARIFICATION OF SSI TO MS DC SHEET DONE BY ANYA IN PHARMACY. REFAXED DC MED LIST TO [facility].
--- NOTE | 2018-08-14 14:15 | NUR ---
DC'D PER WC TO [facility]. DC PAPERS SENT WITH SUPERVISOR OVENS.
--- NOTE | 2018-08-17 15:08 | Physician Query Clarification ---
PQ-CHF Specificity The medical record reflects the following clinical scenario: History/Risk Factors: Pneumonia, Influenza A, COPDAE, HTN, Acute on Chronic renal failure, CHF Clinical Findings: BNP 122.1on 07/23 > 536.9 on 08/05, Since 07/23/2018, there has been a decrease in the vascularity and infiltrates consistent with improvement in congestive failure. Treatment: 40 mg IV Lasix Question: Can you further specify the acuity &/or type of CHF per the clinical indicators above? Please document a response below PHYSICIAN RESPONSE Acuity: Acute on Chronic Type: Diastolic In responding to this query, please exercise your independent professional judgment. The purpose of this communication is to more accurately reflect the complexity of your patients condition. The fact that a question is asked does not imply that any particular answer is desired or expected. Thank you for your timely response to this clarification. Requestors name: Liudmila THIS PHYSICIAN QUERY FORM IS A PERMANENT PART OF THE MEDICAL RECORD LIUDMILA BARNES Aug 17, 2018 15:08 MIRELA LYLE DO Aug 17, 2018 18:27
== END 2018-08-14 14:15 | DRG 291 ==
LOC: EDUNIT# 18:17 → ER 18:18 → 4TH 21:00 → ICU 07-25 11:40 → 4TH 07-26 18:30 → ICU 07-27 11:26 → 4TH 07-28 15:33
PROVIDERS: ADMIT Family Medicine; ATTEND Family Medicine
PROC: 05HN33Z Insertion of Infusion Device into Left Internal Jugular Vein, Percutaneous Approach (ICD-10-PCS; 2018-07-31)
PROC: 0JH60XZ Insertion of Tunneled Vascular Access Device into Chest Subcutaneous Tissue and Fascia, Open Approach (ICD-10-PCS; principal; 2018-07-31 18:16)
PROC: 02HV33Z Insertion of Infusion Device into Superior Vena Cava, Percutaneous Approach (ICD-10-PCS; 2018-07-31 18:16)
DX: I13.0 Hypertensive heart and chronic kidney disease with heart failure and stage 1 through stage 4 chronic kidney disease, or unspecified chronic kidney disease (principal); I50.33 Acute on chronic diastolic (congestive) heart failure; J11.00 Influenza due to unidentified influenza virus with unspecified type of pneumonia; J18.9 Pneumonia, unspecified organism; J44.0 Chronic obstructive pulmonary disease with (acute) lower respiratory infection; J44.1 Chronic obstructive pulmonary disease with (acute) exacerbation; J90 Pleural effusion, not elsewhere classified; G93.1 Anoxic brain damage, not elsewhere classified; N17.9 Acute kidney failure, unspecified; E87.2 Acidosis; E87.1 Hypo-osmolality and hyponatremia; E66.2 Morbid (severe) obesity with alveolar hypoventilation; N39.0 Urinary tract infection, site not specified; I16.0 Hypertensive urgency; N18.9 Chronic kidney disease, unspecified; H66.93 Otitis media, unspecified, bilateral; R09.02 Hypoxemia; E78.00 Pure hypercholesterolemia, unspecified; I34.0 Nonrheumatic mitral (valve) insufficiency; K21.9 Gastro-esophageal reflux disease without esophagitis; F41.9 Anxiety disorder, unspecified; F32.9 Major depressive disorder, single episode, unspecified; E87.5 Hyperkalemia; E11.65 Type 2 diabetes mellitus with hyperglycemia; I27.23 Pulmonary hypertension due to lung diseases and hypoxia; E11.649 Type 2 diabetes mellitus with hypoglycemia without coma; E11.43 Type 2 diabetes mellitus with diabetic autonomic (poly)neuropathy; D64.9 Anemia, unspecified; E83.42 Hypomagnesemia
CPT/HCPCS: 36415; 36600; 70450; 71045; 71046; 71260; 76604; 76770; 77012; 78582; 80048; 80053; 80202; 80306; 81000; 82805; 82945; 82962; 83605; 83615; 83735; 83880; 83986; 84100; 84157; 84443; 84478; 84484; 85007; 85025; 85027; 85610; 85730; 86141; 86850; 86900; 86901; 86920; 87040; 87070; 87081; 87088; 87205; 87449; 87631; 87804; 87899; 89051; 93005; 93306; 94640; 94760; 96361; 96365; 96367; 96372; 96375; 99156

== ENCOUNTER → 2018-07-23 | Outpatient (CLI) | payer MEDICARE, MEDICAID ==
[~2018-07-23] MED LIST changes: +CARV3.122 PO; +CEFD300C3 PO; +DULO20CA PO; +DULO60CA58 PO; +DULO60CA6 PO; +INSU100V16 SC; +ONDA4TAB10 PO; +PREG100C22 PO; +RT-ALBUINH INH; +TRAM50TA2 PO
--- NOTE | 2018-07-23 16:49 | Diagnostic Imaging Report ---
INDICATION: Cough and dyspnea. PA and lateral views of the chest are obtained with comparison made to study of 06/08/2018. FINDINGS: Cardiomegaly and pulmonary venous congestion have increased. There is increase in central pulmonary density bilaterally which is likely due to edema. There has also been an increase in blunting of both costophrenic sulci. IMPRESSION: Findings are most suggestive of congestive heart failure with developing pulmonary edema and bilateral pleural effusions. Superimposed pneumonia cannot be excluded. Dictated by: Dictated on workstation # [id number]
== END ==
LOC: RAD 16:16
PROVIDERS: ATTEND Family Medicine
DX: J81.1 Chronic pulmonary edema (principal); J90 Pleural effusion, not elsewhere classified
CPT/HCPCS: 71046

== ENCOUNTER 2018-09-15 11:12 | Inpatient (IN) | payer MEDICARE, MEDICAID ==
[~2018-09-15] VITALS: Ht 157.5 cm; Wt 106.2 kg
[~2018-09-15 11:12] MED LIST changes: +AMLO10TA7 PO; +CARV3.122 PO; +CEFD300C3 PO; +DOXA2TAB2 PO; +DULO60CA58 PO; +DULO60CA6 PO; +HYDR-3923 PO; +PREG100C22 PO; +ZIPR20CA24 PO
--- NOTE | 2018-09-15 11:37 | NUR ---
MED LIST TO CHART
--- NOTE | 2018-09-15 11:55 | NUR ---
PATIENT HAS PORT IN R CHEST WALL PORT EXAM BY Rui WAITE PEARL RESTORER DOES NOT FEEL RIGHT ATTEMPTED X2 TO START IV. Rui WAITE RN TO ROOM TO EXAM PORT. WILL ATTEMPT TO ASSCESS
[2018-09-15 12:14] LABS: BASOPHILS % (AUTO) 0 % (0-10); EOSINOPHILS # (AUTO) 0.1 10^3/uL (0.0-0.3); EOSINOPHILS % (AUTO) 3 % (0-10); HEMATOCRIT 24 % (35-52); HEMOGLOBIN 7.9 G/DL (11.5-16.0); LYMPHOCYTES # (AUTO) 1.4 X 10^3 (1.0-4.0); LYMPHOCYTES % (AUTO) 27 % (12-44); MEAN CORPUSCULAR HEMOGLOBIN 30 PG (25-34); MEAN CORPUSCULAR HGB CONC 33 G/DL (32-36); MEAN CORPUSCULAR VOLUME 92 FL (80-99); MEAN PLATELET VOLUME 8.8 FL (7.4-10.4); MONOCYTES # (AUTO) 0.3 X 10^3 (0.0-1.0); MONOCYTES % (AUTO) 6 % (0-12); NEUTROPHILS # (AUTO) 3.3 X 10^3 (1.8-7.8); NEUTROPHILS % (AUTO) 64 % (42-75); PLATELET COUNT 283 10^3/uL (130-400); RED CELL DISTRIBUTION WIDTH 15.7 % (10.0-14.5); WHITE BLOOD COUNT 5.2 10^3/uL (4.3-11.0)
--- NOTE | 2018-09-15 12:19 | ED General ---
General Chief Complaint: Neurological Problems Stated Complaint: CONFUSION Nursing Triage Note: AMB TO ROOM WITH WALKER DAUGHTER REPORTS THAT SHE HAS BEEN CONFUSED. FOR LAST 3 DAYS LAST TIME THIS HAPPENED SHE WAS SEPTIC. [facility] BRAIN INJURY Nursing Sepsis Screen: No Definite Risk Source of Information: Patient Exam Limitations: No Limitations History of Present Illness Date Seen by Provider: Sep 15, 2018 Time Seen by Provider: 11:20 Initial Comments 53-year-old female who presents to the emergency room with complaints of increased confusion for the past 3 days. She is anemic by her daughter who reports that when this happens she often has an infection. She does have history of traumatic brain injury. The patient is alert and oriented but repeats herself during conversation. Timing/Duration: 2-3 Days Associated Systoms: Denies Symptoms Allergies and Home Medications Allergies Coded Allergies: codeine (Verified Allergy, Mild, ITCHING, Pt has received Lortab in the past, 07/02/18) Sulfa (Sulfonamide Antibiotics) (Verified Allergy, Unknown, HIVES, 02/07/18) Home Medications Acetaminophen 500 Mg Tablet, 500 MG PO TID PRN for PAIN-MILD, (Reported) Albuterol Sulfate 18 Gm Hfa.aer.ad, 2 PUFF INH Q6H PRN for SHORTNESS OF BREATH, (Reported) Amlodipine Besylate 10 Mg Tablet, 10 MG PO DAILY, (Reported) Bumetanide 1 Mg Tablet, 1 MG PO 0800,1200, (Reported) Carvedilol 12.5 Mg Tablet, 12.5 MG PO BID, (Reported) Doxazosin Mesylate 2 Mg Tablet, 2 MG PO HS, (Reported) Ergocalciferol (Vitamin D2) 50,000 Unit Capsule, 50,000 UNIT PO WEEK, (Reported) Hydralazine HCl 25 Mg Tablet, 25 MG PO 0700,1400,2200, (Reported) Insulin Aspart 300 Units/3 Ml Solution, SC QID, (Reported) 181-200 = 4 UNITS 201-250 = 6 UNITS 251-300 = 8 UNITS 301-350 = 10 UNITS 351- 400 = 12 UNITS >400 CONTACT PCP Ipratropium/Albuterol Sulfate 3 Ml Ampul.neb, 3 ML IH Q4H PRN for SHORTNESS OF BREATH, (Reported) Sodium Bicarbonate 650 Mg Tablet, 650 MG PO BID, (Reported) Tramadol HCl 50 Mg Tablet, 25 MG PO TID PRN for PAIN-MODERATE, (Reported) TAKES 1/2 (50MG) TABLET Ziprasidone HCl 20 Mg Capsule, 20 MG PO BID, (Reported) Patient Home Medication List Home Medication List Reviewed: Yes Review of Systems Review of Systems Constitutional: see HPI; No chills, No fever Psychiatric/Neurological: See HPI, Other (confusion) All Other Systems Reviewed Negative Unless Noted: Yes Past Uhjxwgt-Drlubi-Dxxeie Hx Past Med/Social Hx: Reviewed Nursing Past Med/Soc Hx Patient Social History Alcohol Use: Denies Use Recreational Drug Use: No Drug of Choice: opioids Smoking Status: Former Smoker Type Used: Cigarettes Former Smoker, Quit: May 23, 2018 2nd Hand Smoke Exposure: Yes Recent Foreign Travel: No Contact w/Someone Who Travel: No Recent Infectious Disease Expo: No Recent Hopitalizations: Yes ([facility]) Immunizations Up To Date Tetanus Booster (TDap): Less than 5yrs Date of Pneumonia Vaccine: Jun 09, 2008 Date of Influenza Vaccine: Jun 28, 2017 Seasonal Allergies Seasonal Allergies: Yes Past Medical History Surgeries: Yes (Left breast cyst, x2, ORIF Right ankle) Section, Gallbladder, Orthopedic, Tubal Ligation Respiratory: Yes (CPAP not used after last sleep study) Sleep Apnea, COPD Cardiac: Yes Chronic Edema/Swelling, High Cholesterol, Hypertension Neurological: Yes (HYPOGLYCEMIC ENCEPHALOPATHY) Neuropathy, Traumatic Brain Injury 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 Disorders: No 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 Disorders: Denies FRAME CHANGER History: Tubal Ligation Sexually Transmitted Disease: No HIV/AIDS: No Genitourinary: Yes Renal Failure, UTI-Chronic Gastrointestinal: Yes Gastroesophageal Reflux, Pancreatitis Musculoskeletal: Yes (right ankle fx with steel plate) Degenerate Disk Disease, Chronic Back Pain Endocrine: Yes Diabetes, Insulin dep HEENT: No Cancer: No Psychosocial: Yes (DGTR STATES PT HAS ADDICTIVE PERSONALITY) Sleep Difficulties, Anxiety, Depression Integumentary: Yes (FREQUENT CELLULITIS--LEGS) Recent Skin Changes Blood Disorders: No Adverse Reaction/Blood Tranf: No Family Medical History Reviewed Nursing Family Hx Completed stroke 19 FATHER Congenital heart disease 19 FATHER Diabetes mellitus 19 FATHER Myocardial infarction 19 FATHER Psychosocial problem 19 FATHER (depression) 19 MOTHER (depression) Respiratory disorder 19 MOTHER (copd) No Pertinent Family Hx, Diabetes Physical Exam Vital Signs Vital Signs - First Documented 09/15/18 11:42 Temp 97.9 Pulse 71 Resp 18 B/P (MAP) 109/64 (79) Pulse Ox 94 O2 Delivery Room Air Capillary Refill : Less Than 3 Seconds Height, Weight, BMI Height: 5'2.00" Weight: 240lbs. 3.0oz. 108.752086ov; 35.9 BMI Method:Stated General Appearance: No Apparent Distress, WD/WN HEENT: PERRL/EOMI, TMs Normal, Normal ENT Inspection, Pharynx Normal Respiratory: Chest Non Tender, Lungs Clear, Normal Breath Sounds, No Accessory Muscle Use, No Respiratory Distress Cardiovascular: Regular Rate, Rhythm, No Edema, No Gallop, No JVD, No Murmur, Normal Peripheral Pulses Neurologic/Psychiatric: Alert, Oriented x3, No Motor/Sensory Deficits, Normal Mood/Affect, Other (NIH 0) Skin: Normal Color, Warm/Dry Focused Exam Lactate Level 09/15/18 12:00: Lactic Acid Level 0.70 Lactic Acid Level Procedures/Interventions Date of ETT Placement: Jun 03, 2018 Time of ETT Placement: 1310 Progress/Results/Core Measures Suspected Sepsis Recent Fever Within 48 Hours: No Infection Criteria Present: None New/Unexplained Altered Menta: Yes Sepsis Screen: No Definite Risk SIRS Temperature:97.9 Pulse: 71 Respiratory Rate: 18 Laboratory Tests 09/15/18 12:00: White Blood Count 5.2 Blood Pressure 109 /64 Mean: 79 09/15/18 12:00: Lactic Acid Level 0.70 Laboratory Tests 09/15/18 12:00: Creatinine 2.10H, INR Comment 1.0, Platelet Count 283, Total Bilirubin 0.5 Results/Orders Lab Results Laboratory Tests Test 09/15/18 12:00 09/15/18 12:53 Range/Units White Blood Count 5.2 4.3-11.0 10^3/uL Red Blood Count 2.65 L 4.35-5.85 10^6/uL Hemoglobin 7.9 L 11.5-16.0 G/DL Hematocrit 24 L 35-52 % Mean Corpuscular Volume 92 80-99 FL Mean Corpuscular Hemoglobin 30 25-34 PG Mean Corpuscular Hemoglobin Concent 33 32-36 G/DL Red Cell Distribution Width 15.7 H 10.0-14.5 % Platelet Count 283 130-400 10^3/uL Mean Platelet Volume 8.8 7.4-10.4 FL Neutrophils (%) (Auto) 64 42-75 % Lymphocytes (%) (Auto) 27 12-44 % Monocytes (%) (Auto) 6 0-12 % Eosinophils (%) (Auto) 3 0-10 % Basophils (%) (Auto) 0 0-10 % Neutrophils # (Auto) 3.3 1.8-7.8 X 10^3 Lymphocytes # (Auto) 1.4 1.0-4.0 X 10^3 Monocytes # (Auto) 0.3 0.0-1.0 X 10^3 Eosinophils # (Auto) 0.1 0.0-0.3 10^3/uL Basophils # (Auto) 0.0 0.0-0.1 10^3/uL Prothrombin Time 13.9 12.2-14.7 SEC INR Comment 1.0 0.8-1.4 Activated Partial Thromboplast Time 34 24-35 SEC Sodium Level 137 135-145 MMOL/L Potassium Level 4.0 3.6-5.0 MMOL/L Chloride Level 107 98-107 MMOL/L Carbon Dioxide Level 24 21-32 MMOL/L Anion Gap 6 5-14 MMOL/L Blood Urea Nitrogen 22 H 7-18 MG/DL Creatinine 2.10 H 0.60-1.30 MG/DL Estimat Glomerular Filtration Rate 25 BUN/Creatinine Ratio 10 Glucose Level 135 H 70-105 MG/DL Lactic Acid Level 0.70 0.50-2.00 MMOL/L Calcium Level 8.5 8.5-10.1 MG/DL Corrected Calcium 9.6 8.5-10.1 MG/DL Total Bilirubin 0.5 0.1-1.0 MG/DL Aspartate Amino Transf (AST/SGOT) 10 5-34 U/L Alanine Aminotransferase (ALT/SGPT) 6 0-55 U/L Alkaline Phosphatase 76 40-136 U/L B-Type Natriuretic Peptide 119.9 H <100.0 PG/ML Total Protein 6.6 6.4-8.2 GM/DL Albumin 2.6 L 3.2-4.5 GM/DL Urine Color YELLOW Urine Clarity VERY CLOUDY H Urine pH 7 5-9 Urine Specific [place] 1.010 L 1.016-1.022 Urine Protein 4+ NEGATIVE Urine Glucose (UA) NEGATIVE NEGATIVE Urine Ketones NEGATIVE NEGATIVE Urine Nitrite NEGATIVE NEGATIVE Urine Bilirubin NEGATIVE NEGATIVE Urine Urobilinogen NORMAL NORMAL MG/DL Urine Leukocyte Esterase 3+ H NEGATIVE Urine RBC (Auto) 5+ H NEGATIVE Urine RBC 25-50 H /HPF Urine WBC >100 H /HPF Urine Squamous Epithelial Cells 5-10 /HPF Urine Crystals NONE /LPF Urine Bacteria LARGE H /HPF Urine Casts NONE /LPF Urine Mucus NEGATIVE /LPF Urine Culture Indicated CULTURE PENDING Urine Test NEGATIVE NEGATIVE Micro Results Microbiology 09/15/18 Influenza Types A,B Antigen (DUNIA) - Final, Complete My Orders Orders - BERNOT,HOLEGR Hcg,Qualitative Urine (09/15/18 11:19) Cbc With Automated Diff (09/15/18 11:20) Comprehensive Metabolic Panel (09/15/18 11:20) Blood Culture (09/15/18 11:20) Sputum Culture (09/15/18 11:20) Urinalysis (09/15/18 11:20) Urine Culture (09/15/18 11:20) Protime With Inr (09/15/18 11:20) Partial Thromboplastin Time (09/15/18 11:20) Chest 1 View, Ap/Pa Only (09/15/18 11:20) Saline Lock/Iv-Start (09/15/18 11:20) Saline Lock/Iv-Start (09/15/18 11:20) O2 (09/15/18 11:20) Remove Rings In Anticipation O (09/15/18 11:20) Lactic Acid Analyzer (09/15/18 11:20) Influenza A And B Antigens (09/15/18 11:20) Ct Head Wo (09/15/18 11:20) BNP (09/15/18 13:30) Meropenem (Merrem 1000 Mg) (09/15/18 14:15) Medications Given in ED Current Medications Medications Dose Ordered Sig/Amy Route Start Time Stop Time Status Last Admin Dose Admin Meropenem 1000 mg/ Sterile Water 20 ml @ 240 mls/hr ONCE ONCE IV 09/15/18 14:15 09/15/18 14:19 DC 09/15/18 14:39 240 MLS/HR Vital Signs/I&O 09/15/18 09/15/18 09/15/18 09/15/18 11:42 14:41 14:59 14:59 Temp 97.9 98.4 98.4 Pulse 71 77 85 85 Resp 18 18 20 20 B/P (MAP) 109/64 (79) 126/87 (100) 151/84 (106) 151/84 Pulse Ox 94 94 94 94 O2 Delivery Room Air Room Air Room Air 09/15/18 09/15/18 09/15/18 15:40 16:00 16:04 Temp 98.4 Pulse 85 Resp 20 B/P (MAP) 151/84 Pulse Ox 93 93 O2 Delivery Room Air Room Air Room Air Capillary Refill : Less Than 3 Seconds Blood Pressure Mean: 79 Progress Note : Time: 14:00 Progress Note I have seen and evaluated the patient. I've informed her of her laboratory and imaging studies. I have discussed the case with Dr. Haider and she recommends giving the patient meropenem to cover urinary tract and possible pneumonia. She also recommends normal saline at 75 mL an hour due to the patient's history of CHF. Diagnostic Imaging Diagonstic Imaging: Xray, CT Plain Films/CT/US/NM/MRI: chest, head Comments [facility], [place] NAME: BE[facility]O [facility]I [facility] REC#: [id number] PT STATUS: REG ER : 1965 PHYSICIAN: HOLGER WAITE ADMIT DATE: 09/15/18/ER Draft Date of Exam:09/15/18 CHEST 1 VIEW, AP/PA ONLY Portable erect AP chest at 1202 hours. INDICATION: Confused, sepsis. FINDINGS: The mild cardiomegaly noted on the prior exam of 08/07/2018 is again evident and no different. The previous study did show abnormal perihilar infiltrates bilaterally. Those findings are much less prominent on this study. However, in the interval since the prior exam, the right hemidiaphragm has become partially obscured by atelectasis/infiltrate and fluid. The central pulmonary vascularity is prominent and most likely there is an element of pulmonary congestion present. The mediastinum is not widened. The osseous structures are intact. The Port-A-Cath on the right is unchanged in position. IMPRESSION: There are mixed results. The perihilar markings do seem better aerated than on the prior exam but there still appears to be an element of mild pulmonary congestion present. A small amount of atelectasis/infiltrate and fluid has also developed in the right lung base. A followup study would be recommended for continued evaluation. Dictated on workstation # [id number] Dict: 09/15/18 1229 Trans: 09/15/18 1235 [id number] Interpreted by: GERMÁN NG MD Electronically signed by: [facility]. [place], [place] NAME: CHEPE CASTANEDA [facility] REC#: [id number] PT STATUS: REG ER : 1965 PHYSICIAN: HOLGER WAITE ADMIT DATE: 09/15/18/ER Draft Date of Exam:09/15/18 CT HEAD WO PROCEDURE: CT head without contrast. TECHNIQUE: Multiple contiguous axial images were obtained through the brain without the use of intravenous contrast. Auto Exposure Controls were utilized during the CT exam to meet ALARA standards for radiation dose reduction. INDICATION: Confusion. FINDINGS: There is no mass, shift of the midline, or hemorrhage to suggest an acute intracranial abnormality. The ventricles are not abnormally dilated and stable in size when compared to the prior exam of 08/07/2018. Mild cortical atrophy seen on the prior exam is again evident and no different. The bone windows show no evidence for a fracture or for a destructive lesion. The orbits are symmetrical and within normal limits. The previous exam did show mild left maxillary sinusitis. On this exam, the left maxillary antrum is now opacified by fluid and mucosal thickening. The sinuses are otherwise generally clear. IMPRESSION: 1. There is no evidence for an acute intracranial abnormality. 2. If clinical concern regarding an underlying abnormality persists, then MRI will be recommended for further study. 3. There is severe left maxillary sinusitis. 4. These results were discussed with VISH Weaver. Dictated on workstation # [id number] Dict: 09/15/18 1232 Trans: 09/15/18 1240 [id number] Interpreted by: GERMÁN NG MD Electronically signed by: Reviewed: Reviewed by Me Departure Communication (Admissions) Time/Spoke to Admitting Phy: 14:00 Dr. Haider Impression Primary Impression: Altered mental status Additional Impressions: UTI (urinary tract infection) possible pneumonia Disposition: ADMITTED INPATIENT Condition: Stable/Unchanged Admissions Decision to Admit Reason: Admit from ER (General) Decision to Admit/Date: Sep 15, 2018 Time/Decision to Admit Time: 14:00 Departure-Patient Inst. Referrals: MIRELA HAIDER DO (PCP/Family) Primary Care Physician HOLGER WAITE Sep 15, 2018 12:19
[2018-09-15 12:23] LABS: PROTHROMBIN TIME PATIENT 13.9 SEC (12.2-14.7)
[2018-09-15 12:33] LABS: ALBUMIN 2.6 GM/DL (3.2-4.5); BILIRUBIN,TOTAL 0.5 MG/DL (0.1-1.0); CALCIUM 8.5 MG/DL (8.5-10.1); CREATININE SERUM 2.1 MG/DL (0.60-1.30); TOTAL PROTEIN 6.6 GM/DL (6.4-8.2)
--- NOTE | 2018-09-15 12:36 | Diagnostic Imaging Report ---
Portable erect AP chest at 1202 hours. INDICATION: Confused, sepsis. FINDINGS: The mild cardiomegaly noted on the prior exam of 08/07/2018 is again evident and no different. The previous study did show abnormal perihilar infiltrates bilaterally. Those findings are much less prominent on this study. However, in the interval since the prior exam, the right hemidiaphragm has become partially obscured by atelectasis/infiltrate and fluid. The central pulmonary vascularity is prominent and most likely there is an element of pulmonary congestion present. The mediastinum is not widened. The osseous structures are intact. The Port-A-Cath on the right is unchanged in position. IMPRESSION: There are mixed results. The perihilar regions do seem better aerated than on the prior exam but there still appears to be an element of mild pulmonary congestion present. A small amount of atelectasis/infiltrate and fluid has also developed in the right lung base. A followup study would be recommended for continued evaluation. Dictated by: Dictated on workstation # [id number]
--- NOTE | 2018-09-15 12:40 | Diagnostic Imaging Report ---
PROCEDURE: CT head without contrast. TECHNIQUE: Multiple contiguous axial images were obtained through the brain without the use of intravenous contrast. Auto Exposure Controls were utilized during the CT exam to meet ALARA standards for radiation dose reduction. INDICATION: Confusion. FINDINGS: There is no mass, shift of the midline, or hemorrhage to suggest an acute intracranial abnormality. The ventricles are not abnormally dilated and stable in size when compared to the prior exam of 08/07/2018. Mild cortical atrophy seen on the prior exam is again evident and no different. The bone windows show no evidence for a fracture or for a destructive lesion. The orbits are symmetrical and within normal limits. The previous exam did show mild left maxillary sinusitis. On this exam, the left maxillary antrum is now opacified by fluid and mucosal thickening. The sinuses are otherwise generally clear. IMPRESSION: 1. There is no evidence for an acute intracranial abnormality. 2. If clinical concern regarding an underlying abnormality persists, then MRI will be recommended for further study. 3. There is severe left maxillary sinusitis. 4. These results were discussed with VISH Weaver. Dictated by: Dictated on workstation # [id number]
[2018-09-15 13:06] LABS: BILIRUBIN,URINE NEGATIVE (NEGATIVE); CLARITY,URINE VERY CLOUDY; COLOR,URINE YELLOW; GLUCOSE, URINE (UA) NEGATIVE (NEGATIVE); KETONES,URINE NEGATIVE (NEGATIVE); LEUKOCYTE ESTERASE ,URINE 3+ (NEGATIVE); NITRITE,URINE NEGATIVE (NEGATIVE); PH,URINE 7 (5-9); PROTEIN,URINE 4+ (NEGATIVE); UROBILINOGEN,URINE NORMAL (NORMAL)
[2018-09-15 13:40] LABS: RBC,URINE 25-50 /HPF
[2018-09-15 13:41] LABS: BACTERIA,URINE LARGE /HPF; WBC,URINE >100 /HPF
[2018-09-15] MEDS ORDERED: MEROPENEM 1,000 MG in WATER (STERILE) FOR INJECTION 20 ML IV ONE (14:15)
--- NOTE | 2018-09-15 14:20 | NUR ---
CALLED FOR ROOM
[2018-09-15 14:59] VITALS: BP 151/84
--- NOTE | 2018-09-15 15:00 | NUR ---
CHEPE CASTANEDA admitted to room 411-1, with an admitting diagnosis of Altered Mental Status, UTI and possible Pneumonia, on 09/15/18 from ED via stretcher, accompanied by staff.CHEPE CASTANEDA introduced to surroundings, call light, bed controls, phone, TV, temperature control, lights, meal times, smoking policy, visitor policy, side rail policy, bathrooms and showers. Patient Rights given to patient in the handbook. CHEPE CASTANEDA verbalizes understanding that [facility] is not responsible for the loss or damage to any personal effects or valuables that are kept in the patients posession during their hospitalization.CHEPE CASTANEDA verbalizes understanding of Interdisciplinary Patient Education. Patient and/or family were informed about the Rapid Response Team and its purpose.
[2018-09-15] MEDS ORDERED: CATHETER FLUSH 10 ML SYR IV PRN (15:15)
[2018-09-15] MEDS ORDERED: TRAM50TA2 PO (15:18)
[2018-09-15] MEDS ORDERED: AMLO10TA7 PO (15:18)
[2018-09-15] MEDS ORDERED: IPRA3AMP31 IH (15:18)
[2018-09-15] MEDS ORDERED: SODI650T PO (15:18)
[2018-09-15] MEDS ORDERED: ACET-2267 PO (15:18)
[2018-09-15] MEDS ORDERED: HYDR-3923 PO (15:18)
[2018-09-15] MEDS ORDERED: CARV12.53 PO (15:18)
[2018-09-15] MEDS ORDERED: DOXA2TAB2 PO (15:18)
[2018-09-15] MEDS ORDERED: ZIPR20CA24 PO (15:18)
[2018-09-15] MEDS ORDERED: ERGO50006 PO (15:18)
[2018-09-15] MEDS ORDERED: INSU100I14 SC (15:18)
[2018-09-15] MEDS ORDERED: BUME1TAB4 PO (15:43)
--- NOTE | 2018-09-15 15:46 | NUR ---
PATIENTS DAUGHTER BROUGHT IN A DETAILED MEDICATION LIST. I COMPARED IT WITH THE EXT MED HX. IN ADDITION TO WHAT IS ON THE LIST THE PATIENT HAS FILLED CYMBALTA RECENTLY, I SPOKE WITH HER DAUGHTER JACQUELINE WHO STATES THEY HAVE NOT BEEN GIVING THIS TO THE PATIENT BECAUSE SHE IS ALREADY TAKING THE GEODON. ALSO RECENTLY FILLED WAS BUMEX #90 FOR 90 DAYS. JACQUELINE STATES THIS WAS INCREASED TO BID AND THEY BEEN DOING BID UNTIL SHE IS SEEN AGAIN FOR HER FOLLOW UP. I UPDATED THE MED REC ACCORDINGLY. I DID VERIFY WITH [facility] THAT IN ADDITION TO WHAT IS SHOWN ON THE EXT MED HX THEY HAVE RECENTLY FILLED SODIUM BICARB BID AND VITAMIN D2 50,000 UNITS WEEKLY.
[2018-09-15 16:04] VITALS: BP 151/84
[2018-09-15] MEDS: NS IV 1000 ML 1,000 ML IV SCH (17:00)
[2018-09-15] MEDS: LORazepam INJ 2 MG/ML (ATIVAN) VIAL IV PRN ×2 (17:06→21:36)
[2018-09-15 19:50] VITALS: BP 137/73
[2018-09-15] MEDS: MEROPENEM 500 MG/SWFI 10 ML IV PUSH IV SCH ×2 (21:41)
[2018-09-15] MEDS ORDERED: inSUlin ASPART (NovoLOG) 1 UNIT/0.01 ML (CHARGE PER UNIT) SC SCH (22:00)
[2018-09-15 23:49] VITALS: BP 164/81
--- NOTE | 2018-09-16 00:36 | NUR ---
Spo2 noted to be 80%-84% on room air with sleep, pt placed on 2lpm nc and Spo2 increases to 93% after 1 minute. [place], RT updated at this time.
[2018-09-16 04:00] VITALS: BP 161/91
[2018-09-16] MEDS: NS IV 1000 ML 1,000 ML IV SCH ×2 (05:43→20:47)
[2018-09-16] MEDS: MEROPENEM 500 MG/SWFI 10 ML IV PUSH IV SCH ×6 (05:46→23:40)
[2018-09-16 06:12] LABS: BASOPHILS % (AUTO) 0 % (0-10); EOSINOPHILS # (AUTO) 0.2 10^3/uL (0.0-0.3); EOSINOPHILS % (AUTO) 3 % (0-10); HEMATOCRIT 25 % (35-52); LYMPHOCYTES # (AUTO) 1.3 X 10^3 (1.0-4.0); LYMPHOCYTES % (AUTO) 24 % (12-44); MEAN CORPUSCULAR HEMOGLOBIN 30 PG (25-34); MEAN CORPUSCULAR HGB CONC 32 G/DL (32-36); MEAN CORPUSCULAR VOLUME 92 FL (80-99); MONOCYTES # (AUTO) 0.4 X 10^3 (0.0-1.0); MONOCYTES % (AUTO) 8 % (0-12); NEUTROPHILS # (AUTO) 3.6 X 10^3 (1.8-7.8); NEUTROPHILS % (AUTO) 65 % (42-75); PLATELET COUNT 271 10^3/uL (130-400); RED CELL DISTRIBUTION WIDTH 15.6 % (10.0-14.5); WHITE BLOOD COUNT 5.5 10^3/uL (4.3-11.0)
[2018-09-16 06:27] LABS: ALBUMIN 2.5 GM/DL (3.2-4.5); BILIRUBIN,TOTAL 0.5 MG/DL (0.1-1.0); CALCIUM 8.4 MG/DL (8.5-10.1); CREATININE SERUM 1.95 MG/DL (0.60-1.30); POTASSIUM 3.8 MMOL/L (3.6-5.0); TOTAL PROTEIN 6.2 GM/DL (6.4-8.2)
[2018-09-16 08:00] VITALS: BP 120/75
[2018-09-16] MEDS ORDERED: CARVEDILOL 12.5 MG (COREG) TABLET PO SCH (09:00)
--- NOTE | 2018-09-16 09:02 | Diagnostic Imaging Report ---
EXAMINATION: Portable erect AP chest at 0505 hours. INDICATION: Respiratory distress, pneumonia. FINDINGS: The cardiomegaly and the right lower lobe atelectasis/infiltrate and fluid seen on the prior exam of 09/15/2018 are again evident and no different. The central pulmonary vascularity remains prominent but similar to the prior study. There is persistent elevation of the lateral aspect of the left hemidiaphragm as well. The mediastinum is not widened. The osseous structures are intact. The right-sided Port-A-Cath does not appear to have changed significantly. IMPRESSION: Stable chest. There has been no significant change since the prior exam. A followup study would be recommended for continued evaluation. Dictated by: Dictated on workstation # [id number]
--- NOTE | 2018-09-16 10:30 | NUR ---
CM/SS. Patient known to bond underwriter from multiple intermittent admissions and high acuity care. Patient discharged home from skilled admission at [facility] on August 27, 2018. She has been at home since that time under the care of her two daughters, Alla Amaya and Boo Nguyen. Alla and her son stay with patient at night and Boo provides care during the day. Alla works a day job and Boo has several children, they both indicate they will need more assistance to continue to keep patient at home. HCBS/SKIL: Patient has 25.5 weekly hours and sleep cycle at this time. Spoke with her [facility] CM/Dora Baron to advocate for increased hours and possible option to hire two more caregivers to share schedule. Dora will need to re-assess patient to establish current level of functioning and needs. HOSPICE: Alla also expressed their desire to utilize hospice benefits and their choice agency is [facility]. Will continue to follow patient during hospital stay and complete referral timely. HHC: Patient has HHC services at this time but patient nor daughter can update bond underwriter about which agency. Will explore and confirm. Dora Baron, Transit Planning Director [email or web address]
[2018-09-16] MEDS: LORazepam INJ 2 MG/ML (ATIVAN) VIAL IV PRN ×2 (11:15→19:46)
[2018-09-16 12:00] VITALS: BP 120/75
[2018-09-16] MEDS: inSUlin ASPART (NovoLOG) 1 UNIT/0.01 ML (CHARGE PER UNIT) SC SCH ×3 (12:05→20:14)
[2018-09-16] MEDS ORDERED: CARVEDILOL 12.5 MG (COREG) TABLET PO NR (12:45)
[2018-09-16] MEDS ORDERED: NON-FORMULARY MEDICATION 1 EA EA (Acetaminophen (Tylenol Extra Strength) 500 MG) PO PRN (12:45)
[2018-09-16] MEDS ORDERED: RT-ALBUTEROL/IPRATROPIUM 3 ML (DUONEB) VIAL IH PRN (12:45)
[2018-09-16] MEDS ORDERED: ACETAMINOPHEN 500 MG TAB (TYLENOL) PO PRN (12:45)
[2018-09-16 16:00] VITALS: BP 102/51
--- NOTE | 2018-09-16 18:15 | History & Physicial ---
History of Present Illness History of Present Illness Reason for visit/HPI This is a 53 year old female who was brought to the emergency room with confusion for 3 days. She was found to have a UTI. Date of Admission Sep 15, 2018 at 14:15 Date Seen by a Provider: Sep 16, 2018 Time Seen by a Provider: 12:30 I consulted on this patient on 09/16/18 12.30 Attending Physician Bailee Haider DO Admitting Physician Bailee Haider DO Consult Allergies and Home Medications Allergies Coded Allergies: codeine (Verified Allergy, Mild, ITCHING, Pt has received Lortab in the past, 07/02/18) Sulfa (Sulfonamide Antibiotics) (Verified Allergy, Unknown, HIVES, 02/07/18) Home Medications Acetaminophen 500 Mg Tablet, 500 MG PO TID PRN for PAIN-MILD, (Reported) Albuterol Sulfate 18 Gm Hfa.aer.ad, 2 PUFF INH Q6H PRN for SHORTNESS OF BREATH, (Reported) Amlodipine Besylate 10 Mg Tablet, 10 MG PO DAILY, (Reported) Bumetanide 1 Mg Tablet, 1 MG PO 0800,1200, (Reported) Carvedilol 12.5 Mg Tablet, 12.5 MG PO BID, (Reported) Doxazosin Mesylate 2 Mg Tablet, 2 MG PO HS, (Reported) Ergocalciferol (Vitamin D2) 50,000 Unit Capsule, 50,000 UNIT PO WEEK, (Reported) Hydralazine HCl 25 Mg Tablet, 25 MG PO 0700,1400,2200, (Reported) Insulin Aspart 300 Units/3 Ml Solution, SC QID, (Reported) 181-200 = 4 UNITS 201-250 = 6 UNITS 251-300 = 8 UNITS 301-350 = 10 UNITS 351- 400 = 12 UNITS >400 CONTACT PCP Ipratropium/Albuterol Sulfate 3 Ml Ampul.neb, 3 ML IH Q4H PRN for SHORTNESS OF BREATH, (Reported) Sodium Bicarbonate 650 Mg Tablet, 650 MG PO BID, (Reported) Tramadol HCl 50 Mg Tablet, 25 MG PO TID PRN for PAIN-MODERATE, (Reported) TAKES 1/2 (50MG) TABLET Ziprasidone HCl 20 Mg Capsule, 20 MG PO BID, (Reported) Patient Home Medication List Home Medication List Reviewed: Yes Past Efcofnt-Lubesa-Zptpmg Hx Patient Social History Alcohol Use: Denies Use Recreational Drug Use: No (hx) Drug of Choice: opioids Smoking Status: Former Smoker Former Smoker, Quit: May 23, 2018 Type Used: Cigarettes 2nd Hand Smoke Exposure: Yes Physical Abuse Screen: No Sexual Abuse: No Recent Foreign Travel: No Contact w/other who traveled: No Recent Hopitalizations: Yes ([facility], [facility] within past month) Recent Infectious Disease Expo: No Immunizations Up To Date Tetanus Booster (TDap): Less than 5yrs Date of Pneumonia Vaccine: Jun 09, 2008 Date of Influenza Vaccine: Jun 28, 2017 Seasonal Allergies Seasonal Allergies: Yes Surgeries Yes (Left breast cyst, x2, ORIF Right ankle) Section, Gallbladder, Orthopedic, Tubal Ligation Respiratory Yes (CPAP not used after last sleep study) COPD Cardiovascular Yes Chronic Edema/Swelling, High Cholesterol, Hypertension Neurological Yes (HYPOGLYCEMIC ENCEPHALOPATHY) Neuropathy, Traumatic Brain Injury 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 System Hx 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 Disorders: No Sexually Transmitted Disease: No HIV/AIDS: No 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 Disorders: Denies SMOKING PIPE MOUNTER History: Tubal Ligation Genitourinary Yes Renal Failure, UTI-Chronic Gastrointestinal Yes Gastroesophageal Reflux, Pancreatitis Musculoskeletal Yes (right ankle fx with steel plate) Degenerate Disk Disease, Chronic Back Pain Endocrine History of Endocrine Disorders: Yes Endocrine Disorders: Diabetes, Insulin dep HEENT History of HEENT Disorders: No Cancer No Psychosocial History of Psychiatric Problem: Yes (DGTR STATES PT HAS ADDICTIVE PERSONALITY) Behavioral Health Disorders: Sleep Difficulties, Anxiety, Depression Integumentary History of Skin or Integumenta: Yes (FREQUENT CELLULITIS--LEGS) Skin/Integumentary Disorders: Recent Skin Changes Blood Transfusions History of Blood Disorders: No Adverse Reaction to a Blood Tr: No Family Medical History Significant Family History: No Pertinent Family Hx, Diabetes Family Hx: Completed stroke 19 FATHER Congenital heart disease 19 FATHER Diabetes mellitus 19 FATHER Myocardial infarction 19 FATHER Psychosocial problem 19 FATHER (depression) 19 MOTHER (depression) Respiratory disorder 19 MOTHER (copd) Review of Systems Constitutional: weakness EENTM: No see HPI, No no symptoms reported, No ear discharge, No hearing loss, No ear pain, No blurred vision, No double vision, No eye pain, No tearing, No vision loss, No dental problems, No hoarseness, No mouth pain, No mouth swelling , No epistaxis, No nose congestion, No nose pain, No throat pain, No throat swelling, No other Respiratory: No no symptoms reported, No see HPI, No cough, No dyspnea on exertion, No hemoptysis, No orthopnea, No phlegm, No short of breath, No stridor , No wheezing, No other Cardiovascular: edema Gastrointestinal: No RUQ, No LUQ, No RLQ, No LLQ, No no symptoms reported, No see HPI, No abdominal pain, No constipation, No diarrhea, No dysphagia, No hematemesis, No heartburn, No jaundice, No loss of appetite, No melena, No nausea, No vomiting, No other Genitourinary: No no symptoms reported, No see HPI, No decreased output, No discharge, No dysuria, No frequency, No hematuria, No hesitancy, No incontinence , No nocturia, No pain, No other Musculoskeletal: muscle weakness Skin: No no symptoms reported, No see HPI, No change in color, No change in hair/nails, No dryness, No hx of skin cancer, No lesions, No lumps, No pruritus , No rash, No other Psychiatric/Neurological: Weakness, Other (confusion) Physical Exam Vital Signs Vital Signs - First Documented 09/15/18 09/16/18 11:42 02:40 Temp 97.9 Pulse 71 Resp 18 B/P (MAP) 109/64 (79) Pulse Ox 94 O2 Delivery Room Air O2 Flow Rate 2.00 Capillary Refill : Less Than 3 Seconds Height, Weight, BMI Height: 5'2.00" Weight: 234lbs. 2.0oz. 106.861229rg; 42.8 BMI Method:Stated General Appearance: Mild Distress (lethargic) HEENT: Normal ENT Inspection Neck: Supple Respiratory: Lungs Clear Cardiovascular: Regular Rate, Rhythm Gastrointestinal: Normal Bowel Sounds, Non Tender, Soft Rectal: Deferred Back: No CVA Tenderness Extremity: Non Tender, No Calf Tenderness, No Pedal Edema Neurologic/Psychiatric: Disoriented Skin: Warm/Dry Comments Laboratory Tests 09/16/18 05:23: Glucometer 158H 09/16/18 05:40: White Blood Count 5.5, Red Blood Count 2.68L, Hemoglobin 8.0L, Hematocrit 25L, Mean Corpuscular Volume 92, Mean Corpuscular Hemoglobin 30, Mean Corpuscular Hemoglobin Concent 32, Red Cell Distribution Width 15.6H, Platelet Count 271, Mean Platelet Volume 9.0, Neutrophils (%) (Auto) 65, Lymphocytes (%) (Auto) 24, Monocytes (%) (Auto) 8, Eosinophils (%) (Auto) 3, Basophils (%) (Auto) 0, Neutrophils # (Auto) 3.6, Lymphocytes # (Auto) 1.3, Monocytes # (Auto) 0.4, Eosinophils # (Auto) 0.2, Basophils # (Auto) 0.0, Sodium Level 138, Potassium Level 3.8, Chloride Level 110H, Carbon Dioxide Level 22, Anion Gap 6, Blood Urea Nitrogen 21H, Creatinine 1.95H, Estimat Glomerular Filtration Rate 27, BUN/ Creatinine Ratio 11, Glucose Level 146H, Calcium Level 8.4L, Corrected Calcium 9.6, Total Bilirubin 0.5, Aspartate Amino Transf (AST/SGOT) 11, Alanine Aminotransferase (ALT/SGPT) 8, Alkaline Phosphatase 77, Total Protein 6.2L, Albumin 2.5L 09/16/18 11:20: Glucometer 256H 09/16/18 15:32: Glucometer 132H Microbiology 09/15/18 Blood Culture - Preliminary, Resulted No growth 09/15/18 Influenza Types A,B Antigen (DUNIA) - Final, Complete 09/15/18 Urine Culture - Preliminary, Resulted Escherichia coli Enterococcus faecalis Assessment/Plan Assessment and Plan 1. Acute UTI--admit on IV meropenem due to high risk for resistant bacteria due to recent prolonged hospital stays with antibiotic therapy 2. Chronic Renal Failure--hydrate and monitor BUN/Cr 3. Hypertension--resume home meds 4. Anoxic Brain Injury with mood disorder--resume geodan 5. Chronic Anemia--monitor H/H Admission Diagnosis Admission Status: Inpatient Order (span 2 midnights) Reason for Inpatient Admission: Due to recent prolonged hospital stays, will need meropenem IV for at least 48hrs until urine culture results are final Clinical Quality Measures DVT/VTE Risk/Contraindication: Risk Factor Score Per Nursin RFS Level Per Nursing on Admit: 4+=Very High BAILEE HAIDER DO Sep 16, 2018 18:15
[2018-09-16 20:00] VITALS: BP 142/63
[2018-09-16] MEDS: CARVEDILOL 12.5 MG (COREG) TABLET PO SCH (20:14)
[2018-09-16] MEDS: ZIPRASIDONE 20 MG (GEODON) CAP PO SCH (20:14)
[2018-09-16] MEDS: SODIUM BICARBONATE 650 MG TABLET (NON-FORMULARY) PO SCH (20:14)
[2018-09-16] MEDS ORDERED: ZIPRASIDONE HCL 20 MG PO SCH (21:00)
[2018-09-17] VITALS (9 sets, daily range): BP systolic 117–157; BP diastolic 58–80
[2018-09-17] MEDS: inSUlin ASPART (NovoLOG) 1 UNIT/0.01 ML (CHARGE PER UNIT) SC SCH ×4 (06:13→20:04)
[2018-09-17] MEDS: MEROPENEM 500 MG/SWFI 10 ML IV PUSH IV SCH ×6 (06:13→23:37)
[2018-09-17 06:21] LABS: BASOPHILS % (AUTO) 0 % (0-10); EOSINOPHILS # (AUTO) 0.2 10^3/uL (0.0-0.3); EOSINOPHILS % (AUTO) 3 % (0-10); HEMATOCRIT 23 % (35-52); HEMOGLOBIN 7.3 G/DL (11.5-16.0); LYMPHOCYTES # (AUTO) 1.7 X 10^3 (1.0-4.0); LYMPHOCYTES % (AUTO) 30 % (12-44); MEAN CORPUSCULAR HEMOGLOBIN 30 PG (25-34); MEAN CORPUSCULAR HGB CONC 32 G/DL (32-36); MEAN CORPUSCULAR VOLUME 92 FL (80-99); MEAN PLATELET VOLUME 8.7 FL (7.4-10.4); MONOCYTES # (AUTO) 0.4 X 10^3 (0.0-1.0); MONOCYTES % (AUTO) 7 % (0-12); NEUTROPHILS # (AUTO) 3.4 X 10^3 (1.8-7.8); NEUTROPHILS % (AUTO) 60 % (42-75); PLATELET COUNT 247 10^3/uL (130-400); RED CELL DISTRIBUTION WIDTH 15.4 % (10.0-14.5); WHITE BLOOD COUNT 5.7 10^3/uL (4.3-11.0)
[2018-09-17 06:52] LABS: ALANINE AMINOTRANSFERASE < 6 U/L (0-55); ALBUMIN 2.4 GM/DL (3.2-4.5); ALKALINE PHOSPHATASE 65 U/L (40-136); BILIRUBIN,TOTAL 0.5 MG/DL (0.1-1.0); BUN/CREATININE RATIO 10; CALCIUM 8.1 MG/DL (8.5-10.1); CARBON DIOXIDE 22 MMOL/L (21-32); CHLORIDE 109 MMOL/L (98-107); CREATININE SERUM 1.75 MG/DL (0.60-1.30); GFR ESTIMATED 31; GLUCOSE 155 MG/DL (70-105); POTASSIUM 3.8 MMOL/L (3.6-5.0); SODIUM 138 MMOL/L (135-145)
[2018-09-17] MEDS: NS IV 1000 ML 1,000 ML IV SCH (08:47)
[2018-09-17] MEDS: SODIUM BICARBONATE 650 MG TABLET (NON-FORMULARY) PO SCH ×2 (08:47→20:04)
[2018-09-17] MEDS: CARVEDILOL 12.5 MG (COREG) TABLET PO SCH ×2 (08:47→20:04)
[2018-09-17] MEDS: ZIPRASIDONE 20 MG (GEODON) CAP PO SCH ×2 (08:47→20:04)
--- NOTE | 2018-09-17 09:50 | NUR ---
CM/SS. HHC: Patient is established with [facility] and their services should be resumed at discharge with orders appropriate to current post hospital care needs. Alternately, depending on patient/family decision, they have indicated interest in [facility]. Referral should be completed on their behalf for hospice rather than C if they confirm desire this care pathway.
[2018-09-17] MEDS ORDERED: diphenhydrAMINE 25 MG TAB (BENADRYL) PO NR (12:30)
[2018-09-17] MEDS ORDERED: FUROSEMIDE 40 MG/4 ML INJ (LASIX) IVP NR (12:30)
--- NOTE | 2018-09-17 12:33 | Progress Note (SOAP) ---
Subjective Date Seen by a Provider: Sep 17, 2018 Time Seen by a Provider: 12:29 Subjective/Events-last exam Fwup UTI, Chronic Renal Failure, Anemia, DMII, Anoxic Brain Injury. Short of air today. Focused Exam Lactate Level 09/15/18 12:00: Lactic Acid Level 0.70 Objective Exam Vital Signs Date Time Temp Pulse Resp B/P (MAP) Pulse Ox O2 Delivery O2 Flow Rate FiO2 09/17/18 12:03 98 Nasal Cannula 3.00 09/17/18 11:47 99.1 71 30 135/67 (89) 97 Nasal Cannula 3.00 09/17/18 08:18 99.2 75 30 135/70 (91) 95 Nasal Cannula 3.00 09/17/18 08:00 98 Nasal Cannula 2.00 09/17/18 04:00 99.3 72 30 117/74 (88) 98 Nasal Cannula 2.00 09/17/18 01:30 94 Nasal Cannula 2.00 09/17/18 00:33 98.3 80 26 122/58 (79) 98 Nasal Cannula 2.00 09/16/18 22:30 95 Nasal Cannula 2.00 09/16/18 20:00 Room Air 09/16/18 20:00 98.9 82 22 142/63 (89) 97 Nasal Cannula 2.00 09/16/18 19:51 96 Nasal Cannula 2.00 09/16/18 16:00 97.9 80 18 102/51 (68) 98 Nasal Cannula 3.00 I & O 09/17/18 07:00 Intake Total 2530 ml Output Total 200 ml Balance 2330 ml Capillary Refill : Less Than 3 SecondsLess Than 3 Seconds General Appearance: Mild Distress (respiratory) Respiratory: Crackles (bases), Decreased Breath Sounds Cardiovascular: Regular Rate, Rhythm, Systolic Murmur Gastrointestinal: normal bowel sounds, non tender, soft Extremity: Non Tender, No Calf Tenderness, No Pedal Edema Neurologic/Psychiatric: Alert, Oriented x3 Skin: Pallor Results Lab Laboratory Tests 09/16/18 15:32: Glucometer 132H 09/16/18 19:58: Glucometer 200H 09/17/18 05:57: Glucometer 168H 09/17/18 06:12: White Blood Count 5.7, Red Blood Count 2.45L, Hemoglobin 7.3L, Hematocrit 23L, Mean Corpuscular Volume 92, Mean Corpuscular Hemoglobin 30, Mean Corpuscular Hemoglobin Concent 32, Red Cell Distribution Width 15.4H, Platelet Count 247, Mean Platelet Volume 8.7, Neutrophils (%) (Auto) 60, Lymphocytes (%) (Auto) 30, Monocytes (%) (Auto) 7, Eosinophils (%) (Auto) 3, Basophils (%) (Auto) 0, Neutrophils # (Auto) 3.4, Lymphocytes # (Auto) 1.7, Monocytes # (Auto) 0.4, Eosinophils # (Auto) 0.2, Basophils # (Auto) 0.0, Sodium Level 138, Potassium Level 3.8, Chloride Level 109H, Carbon Dioxide Level 22, Anion Gap 7, Blood Urea Nitrogen 18, Creatinine 1.75H, Estimat Glomerular Filtration Rate 31, BUN/ Creatinine Ratio 10, Glucose Level 155H, Calcium Level 8.1L, Corrected Calcium 9.4, Total Bilirubin 0.5, Aspartate Amino Transf (AST/SGOT) 11, Alanine Aminotransferase (ALT/SGPT) < 6, Alkaline Phosphatase 65, Total Protein 6.0L, Albumin 2.4L 09/17/18 11:50: Glucometer 197H Microbiology 09/15/18 Blood Culture - Preliminary, Resulted No growth 09/15/18 Influenza Types A,B Antigen (DUNIA) - Final, Complete 09/15/18 Urine Culture - Preliminary, Resulted Escherichia coli Escherichia coli#2 Enterococcus faecalis Assessment/Plan Assessment/Plan Assess & Plan/Chief Complaint 1. Acute UTI--continue meropenem 2. Acute Renal Failure--Cr down to 1.75 today 3. Anemia--transfuse 1u pRBCs 4. Hypertension--stable with coreg 5. Dyspnea--IV lasix now 6. Anoxic Brain Injury--stable, more alert today Clinical Quality Measures Admission Status Admission Dx 1. Acute UTI--admit on IV meropenem due to high risk for resistant bacteria due to recent prolonged hospital stays with antibiotic therapy 2. Chronic Renal Failure--hydrate and monitor BUN/Cr 3. Hypertension--resume home meds 4. Anoxic Brain Injury with mood disorder--resume geodan 5. Chronic Anemia--monitor H/H DVT/VTE Risk/Contraindication: Risk Factor Score Per Nursin RFS Level Per Nursing on Admit: 4+=Very High MIRELA LYLE DO Sep 17, 2018 12:33
--- NOTE | 2018-09-17 13:35 | NUR ---
CONSENT FOR BLOOD OBTAINED. PORT DRAW LABS. LASIX 40MG IV X 1. IVF DECREASED TO 50 CC/HR. PREMEDICATED WITH BENADRYL AND TYLENOL FOR BLOOD TRANSFUSION.
[2018-09-17] MEDS: ACETAMINOPHEN 325 MG TABLET PO PRN (14:53)
[2018-09-17] MEDS: LORazepam INJ 2 MG/ML (ATIVAN) VIAL IV PRN (20:04)
[2018-09-18] VITALS: BP 133/72
[2018-09-18 04:45] VITALS: BP 162/85
[2018-09-18] MEDS: MEROPENEM 500 MG/SWFI 10 ML IV PUSH IV SCH ×4 (05:56→13:10)
[2018-09-18] MEDS: NS IV 1000 ML 1,000 ML IV SCH (05:58)
[2018-09-18 06:00] LABS: BASOPHILS % (AUTO) 0 % (0-10); EOSINOPHILS # (AUTO) 0.2 10^3/uL (0.0-0.3); EOSINOPHILS % (AUTO) 2 % (0-10); HEMATOCRIT 27 % (35-52); HEMOGLOBIN 8.7 G/DL (11.5-16.0); LYMPHOCYTES # (AUTO) 2.2 X 10^3 (1.0-4.0); LYMPHOCYTES % (AUTO) 34 % (12-44); MEAN CORPUSCULAR HEMOGLOBIN 30 PG (25-34); MEAN CORPUSCULAR HGB CONC 33 G/DL (32-36); MEAN CORPUSCULAR VOLUME 91 FL (80-99); MEAN PLATELET VOLUME 8.8 FL (7.4-10.4); MONOCYTES # (AUTO) 0.5 X 10^3 (0.0-1.0); MONOCYTES % (AUTO) 7 % (0-12); NEUTROPHILS # (AUTO) 3.6 X 10^3 (1.8-7.8); NEUTROPHILS % (AUTO) 56 % (42-75); PLATELET COUNT 251 10^3/uL (130-400); RED CELL DISTRIBUTION WIDTH 15.2 % (10.0-14.5); WHITE BLOOD COUNT 6.5 10^3/uL (4.3-11.0)
[2018-09-18 06:20] LABS: ALBUMIN 2.7 GM/DL (3.2-4.5); BILIRUBIN,TOTAL 0.6 MG/DL (0.1-1.0); CALCIUM 8.5 MG/DL (8.5-10.1); CREATININE SERUM 1.86 MG/DL (0.60-1.30); POTASSIUM 4.1 MMOL/L (3.6-5.0); TOTAL PROTEIN 6.5 GM/DL (6.4-8.2)
[2018-09-18] MEDS: inSUlin ASPART (NovoLOG) 1 UNIT/0.01 ML (CHARGE PER UNIT) SC SCH ×2 (06:25→11:40)
[2018-09-18 08:00] VITALS: BP 160/80
[2018-09-18] MEDS: LORazepam INJ 2 MG/ML (ATIVAN) VIAL IV PRN (08:33)
[2018-09-18] MEDS: ZIPRASIDONE 20 MG (GEODON) CAP PO SCH (08:37)
[2018-09-18] MEDS: SODIUM BICARBONATE 650 MG TABLET (NON-FORMULARY) PO SCH (08:37)
[2018-09-18] MEDS: CARVEDILOL 12.5 MG (COREG) TABLET PO SCH (08:37)
[2018-09-18] MEDS: ACETAMINOPHEN 325 MG TABLET PO PRN (08:38)
[2018-09-18] MEDS ORDERED: BUMETANIDE 1 MG (BUMEX) TAB PO ONE (10:30)
[2018-09-18] MEDS ORDERED: LEVO250T46 PO (10:37)
[2018-09-18] MEDS ORDERED: CARV12.53 PO (10:37)
--- NOTE | 2018-09-18 10:41 | D/C HH Face to Face Order ---
D/C Face to Face Orders Instructions for Patient [facility], Patient Instructions/FollowUp: Fwup 1 week Physician to follow Patient: Vitaly Discharge Diet for Home: ADA Diet, Cardiac Diet Patient Data-Allergies,Ht & Wt Patient Allergies: Coded Allergies: codeine (Verified Allergy, Mild, ITCHING, Pt has received Lortab in the past, 07/02/18) Sulfa (Sulfonamide Antibiotics) (Verified Allergy, Unknown, HIVES, 02/07/18) Height (Feet): 5 Height (Inches): 2.00 Weight (Pounds): 234 Weight (Ounces): 2.0 Home Health Need/Face to Face Date of Face to Face: Sep 18, 2018 Clinical Findings: Generalized weakness and fatigue, Shortness of breath I have seen Pt [id number]: Yes Discharged To: Home Diagnosis/Conditions: UTI Chronic Renal Insufficiency COPD Anoxic Brain Injury Weakness Diabetes mellitus--insulin requiring Hypertension Patient is Homebound due to: CognItive deficits, Muscle weakness, Shortness of breath/distress Homebound Status Due to the above stated illness, injury or surgical procedure (medical condition or diagnosis) and associated clinical findings, the patient is homebound because of his/her inability to leave home except with aid of a supportive device and/or person AND leaving the home requires a considerable and taxing effort or is medically contraindicated. Pt req the following assistanc: [facility] Nursing Orders Home Health Services Order: Nursing Services, Retanned Leather Roller-Evaluate & Treat, Physical Therapy-Evaluate & Treat Home Health Infusion Therapy Line Start Date: Sep 15, 2018 Line Start Time: 1159 Line Type: [place] Therapy Orders Therapy Orders: OT (must have SN or PT order), Physical Therapy Therapy Specific Orders: Teach strategies/cognitive deficits, Increase strength /endurance Certify Stmt I certify that this patient is under my care and that I, a nurse practitioner or a physician; a cashier assistant working with me, had a face to face encounter that - meets the physician face to face encounter requirements with this patient as dated. MIRELA LYLE DO Sep 18, 2018 10:41
[2018-09-18 12:00] VITALS: BP 166/68
--- NOTE | 2018-09-18 13:03 | NUR ---
CM DISCHARGE PLANNING: Patient is dismissing to home today with new need for oxygen on exertion et HHC for Nursing, PT, et OT. Choice forms presented to Briseyda et she has chosen [facility] et [facility] for her needs. Choice forms signed et placed on chart. [facility] will deliver portable oxygen tank to Briseyda's room before she dismisses to home. Referrals faxed et agencies contacted with acceptance of Briseyda's needs. No further interventions noted. Patient et primary care nurse notified that we are waiting on oxygen et then she is ready to dismiss from SS standpoint.
--- NOTE | 2018-09-18 13:05 | NUR ---
PATIENTS O2 SAT WAS CHECKED ON 2 L AND WAS 94%; O2 WAS REMOVED FOR 30 MINS AND O2 SAT ON RA WAS 91%; PATIENT WALKED FOR 6 MINS SHE STARTED OUT ON RA AND WALKED FOR 3 MINS AND O2 SAT DROPPED TO 86%; SO RT PLACED 2 L NC ON PATIENT AND HER O2 SAT CAME UP TO AND ABOVE 90%. PATIENT REQUIRING RA AT REST AND 2 L NC ON EXERTION AT THIS TIME
== END 2018-09-18 14:15 | disposition home health service (06) | DRG 690 ==
LOC: EDUNIT# 11:12 → ER 11:13 → 4TH 14:15
PROVIDERS: ADMIT Family Medicine; ATTEND Family Medicine
DX: N39.0 Urinary tract infection, site not specified (principal); R41.0 Disorientation, unspecified; I13.0 Hypertensive heart and chronic kidney disease with heart failure and stage 1 through stage 4 chronic kidney disease, or unspecified chronic kidney disease; N18.9 Chronic kidney disease, unspecified; I50.9 Heart failure, unspecified; N17.9 Acute kidney failure, unspecified; F39 Unspecified mood [affective] disorder; F41.9 Anxiety disorder, unspecified; F32.9 Major depressive disorder, single episode, unspecified; J44.9 Chronic obstructive pulmonary disease, unspecified; E11.40 Type 2 diabetes mellitus with diabetic neuropathy, unspecified; D64.9 Anemia, unspecified; E78.00 Pure hypercholesterolemia, unspecified; K21.9 Gastro-esophageal reflux disease without esophagitis; M54.9 Dorsalgia, unspecified; Z87.820 Personal history of traumatic brain injury; Z87.821 Personal history of retained foreign body fully removed; Z79.4 Long term (current) use of insulin
CPT/HCPCS: 36415; 70450; 71045; 80053; 81000; 82962; 83605; 83880; 84703; 85025; 85610; 85730; 86850; 86900; 86901; 86920; 87040; 87077; 87088; 87186; 87804; 94760; 94761; 96365

== ENCOUNTER → 2018-12-08 | Outpatient (CLI) | payer MEDICARE, MEDICAID ==
[~2018-12-08] MED LIST changes: +ACET-2267 PO; +BUME1TAB4 PO; +ERGO50006 PO; +IPRA3AMP31 IH; +LEVO250T46 PO; +SODI650T PO
[2018-12-08 13:35] LABS: ALBUMIN 3.5 GM/DL (3.2-4.5); CALCIUM 9.5 MG/DL (8.5-10.1); CREATININE SERUM 2.2 MG/DL (0.60-1.30); PHOSPHORUS 3.3 MG/DL (2.3-4.7); POTASSIUM 3.7 MMOL/L (3.6-5.0)
== END ==
LOC: LAB 12:57
PROVIDERS: ATTEND Internal Medicine Nephrology
DX: E83.9 Disorder of mineral metabolism, unspecified (principal); N18.9 Chronic kidney disease, unspecified
CPT/HCPCS: 36415; 80069

== ENCOUNTER 2018-12-23 13:59 | Emergency (ER) | payer MEDICARE, MEDICAID | END 2018-12-23 15:38 | disposition home or self-care (01) | LOC: ER 13:59 ==

== ENCOUNTER 2019-01-23 19:28 | Emergency (ER) | payer MEDICARE, MEDICAID ==
[~2019-01-23] VITALS: Ht 157.5 cm; Wt 77.1 kg
[~2019-01-23 19:28] MED LIST changes: -BUME1TAB4 PO; +BUME1TAB8 PO; +DULO30CA49 PO; -DULO60CA58 PO; +DULO60CA59 PO; +NITR-65 PO; +OMEP20CA13 PO; -TIZA4TAB3 PO; +TIZA4TAB4 PO
[2019-01-23] MEDS ORDERED: DOXYCYCLINE 100 MG (VIBRAMYCIN) TABLET PO STA (19:59)
[2019-01-23] MEDS ORDERED: DOXY100T2 PO (20:02)
--- NOTE | 2019-01-23 20:02 | ED Integumentary General ---
General Chief Complaint: Skin/Wound Problems Stated Complaint: SPOT ON FACE,SWELLING Nursing Triage Note: PT TO ED W/ C/O ABSCESS TO LT FACE ONSET X1 WK, WORSE TODAY. CARE WORKER REPORTS DAUGHTER "POPPED" A WHITE PUS POCKET ON IT TODAY. AREA RED ET INFLAMED AT THIS TIME. History of Present Illness Date Seen by Provider: Jan 23, 2019 Time Seen by Provider: 19:45 Initial Comments 53-year-old female presents for an abscess to her left cheek. Her care worker reports her daughter expressed purulent discharge from it earlier today. She has not been taking antibiotics are seen her primary care provider for this. She does have a history of MRSA. Timing/Duration: week Location: face Possible Cause: no cause identified Associated Symptoms: denies symptoms Allergies and Home Medications Allergies Coded Allergies: codeine (Verified Allergy, Mild, ITCHING, Pt has received Lortab in the past, 07/02/18) Sulfa (Sulfonamide Antibiotics) (Verified Allergy, Unknown, HIVES, 02/07/18) Home Medications Acetaminophen 500 Mg Tablet, 500 MG PO TID PRN for PAIN-MILD, (Reported) Albuterol Sulfate 18 Gm Hfa.aer.ad, 2 PUFF INH Q6H PRN for SHORTNESS OF BREATH, (Reported) Bumetanide 1 Mg Tablet, 1 MG PO 0800,1200, (Reported) Carvedilol 12.5 Mg Tablet, 25 MG PO BID Prescribed by: MIRELA LYLE on 09/18/18 1037 Doxazosin Mesylate 2 Mg Tablet, 2 MG PO HS, (Reported) Doxycycline Hyclate 100 Mg Tablet, 100 MG PO BID Prescribed by: AFSANEH CANALES on 01/23/192001 Ergocalciferol (Vitamin D2) 50,000 Unit Capsule, 50,000 UNIT PO WEEK, (Reported) Insulin Aspart 300 Units/3 Ml Solution, SC QID, (Reported) 181-200 = 4 UNITS 201-250 = 6 UNITS 251-300 = 8 UNITS 301-350 = 10 UNITS 351- 400 = 12 UNITS >400 CONTACT PCP Ipratropium/Albuterol Sulfate 3 Ml Ampul.neb, 3 ML IH Q4H PRN for SHORTNESS OF BREATH, (Reported) Levofloxacin 250 Mg Tablet, 250 MG PO DAILY Prescribed by: MIRELA LYLE on 09/18/18 1037 Nitrofurantoin Monohyd/M-Cryst 100 Mg Capsule, 1 TAB PO BID Prescribed by: HOLGER WAITE on 12/23/18 1511 Nitrofurantoin Monohyd/M-Cryst 100 Mg Capsule, 1 TAB PO BID Prescribed by: HOLGER WAITE on 12/23/18 1536 Sodium Bicarbonate 650 Mg Tablet, 650 MG PO BID, (Reported) Tramadol HCl 50 Mg Tablet, 25 MG PO TID PRN for PAIN-MODERATE, (Reported) TAKES 1/2 (50MG) TABLET Ziprasidone HCl 20 Mg Capsule, 20 MG PO BID, (Reported) Patient Home Medication List Home Medication List Reviewed: Yes Review of Systems Review of Systems Constitutional: no symptoms reported, see HPI Skin: see HPI, other (abscess left cheek) All Other Systems Reviewed Negative Unless Noted: Yes Past Kcsljbe-Rntmgk-Shqyzl Hx Past Med/Social Hx: Reviewed Nursing Past Med/Soc Hx Patient Social History Alcohol Use: Denies Use Recreational Drug Use: No Drug of Choice: opioids Smoking Status: Current Everyday Smoker Type Used: Cigars Former Smoker, Quit: May 23, 2018 2nd Hand Smoke Exposure: Yes Recent Foreign Travel: No Contact w/Someone Who Travel: No Recent Infectious Disease Expo: No Recent Hopitalizations: Yes ([facility] - stroke May 2018 ) Immunizations Up To Date Tetanus Booster (TDap): Less than 5yrs Date of Pneumonia Vaccine: Jun 09, 2008 Date of Influenza Vaccine: Jun 28, 2017 Seasonal Allergies Seasonal Allergies: Yes Past Medical History Surgeries: Yes (Left breast cyst, x2, ORIF Right ankle) Section, Gallbladder, Orthopedic, Tubal Ligation Respiratory: Yes (CPAP not used after last sleep study) Sleep Apnea, COPD Cardiac: Yes Chronic Edema/Swelling, High Cholesterol, Hypertension Neurological: Yes (HYPOGLYCEMIC ENCEPHALOPATHY) Neuropathy, Traumatic Brain Injury 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 Disorders: No 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 Sexually Transmitted Disease: No HIV/AIDS: No Genitourinary: Yes Renal Failure, UTI-Chronic Gastrointestinal: Yes Gastroesophageal Reflux, Pancreatitis Musculoskeletal: Yes (right ankle fx with steel plate) Degenerate Disk Disease, Chronic Back Pain Endocrine: Yes Diabetes, Insulin dep HEENT: No Cancer: No Psychosocial: Yes (DGTR STATES PT HAS ADDICTIVE PERSONALITY) Sleep Difficulties, Anxiety, Depression Integumentary: Yes (FREQUENT CELLULITIS--LEGS) Recent Skin Changes Blood Disorders: No Adverse Reaction/Blood Tranf: No Family Medical History Completed stroke 19 FATHER Congenital heart disease 19 FATHER Diabetes mellitus 19 FATHER Myocardial infarction 19 FATHER Psychosocial problem 19 FATHER (depression) 19 MOTHER (depression) Respiratory disorder 19 MOTHER (copd) No Pertinent Family Hx, Diabetes Physical Exam Vital Signs Vital Signs - First Documented 01/23/19 19:30 Temp 95.6 Pulse 84 Resp 16 B/P (MAP) 154/106 (122) Pulse Ox 98 O2 Delivery Room Air Capillary Refill : Less Than 3 Seconds General Appearance: WD/WN, no apparent distress HEENT: PERRL/EOMI, normal ENT inspection, TMs normal, pharynx normal Neck: non-tender, full range of motion, supple, normal inspection Cardiovascular: normal peripheral pulses, regular rate, rhythm Respiratory: chest non-tender, lungs clear, normal breath sounds Skin: normal color Skin Problem Location: face Skin Problem Character: abscess (and left cheek, moderate erythema, no fluctuance or induration. Tender to palpation.) Lymphatic: no adenopathy Procedures/Interventions Date of ETT Placement: Jun 03, 2018 Time of ETT Placement: 1310 Progress/Results/Core Measures Results/Orders My Orders Orders - AFSANEH CANALES Doxycycline Hyclate Tablet (Vibramycin T (01/23/19 19:59) Vital Signs/I&O 01/23/19 19:30 Temp 95.6 Pulse 84 Resp 16 B/P (MAP) 154/106 (122) Pulse Ox 98 O2 Delivery Room Air Blood Pressure Mean: 122 Departure Impression Primary Impression: Abscess Disposition: 01 HOME, SELF-CARE Condition: Improved Departure-Patient Inst. Decision time for Depature: 20:00 Referrals: MIRELA LYLE DO (PCP/Family) Primary Care Physician Patient Instructions: ABSCESS, MRSA (DC) Add. Discharge Instructions: Keep abscess clean and dry, clean with soap and water and irrigated with p eroxide. Take antibiotics as prescribed. Follow-up with Dr. Lyle in 2-3 days if symptoms are not improving or worsen. Return to emergency department for new, urgent health care needs. All discharge instructions reviewed with patient and/or family. Voiced understanding. Scripts Doxycycline Hyclate (Doxycycline Hyclate) 100 Mg Tablet 100 MG PO BID, #20 TAB 0 Refills Prov: AFSANEH CANALES 01/23/19 AFSANEH CANALES Jan 23, 2019 20:02
[2019-01-23 20:11] VITALS: BP 107/95
== END 2019-01-23 20:11 | disposition home or self-care (01) ==
LOC: EDUNIT# 19:28 → ER 19:29
DX: L02.01 Cutaneous abscess of face (principal); J44.9 Chronic obstructive pulmonary disease, unspecified; G47.30 Sleep apnea, unspecified; I10 Essential (primary) hypertension; E78.00 Pure hypercholesterolemia, unspecified; G62.9 Polyneuropathy, unspecified; K21.9 Gastro-esophageal reflux disease without esophagitis; E11.9 Type 2 diabetes mellitus without complications; F41.9 Anxiety disorder, unspecified; F32.9 Major depressive disorder, single episode, unspecified; F17.290 Nicotine dependence, other tobacco product, uncomplicated; Z87.440 Personal history of urinary (tract) infections; Z98.51 Tubal ligation status; Z91.14 Patient's other noncompliance with medication regimen; Z88.5 Allergy status to narcotic agent; Z88.2 Allergy status to sulfonamides; Z79.4 Long term (current) use of insulin; Z82.49 Family history of ischemic heart disease and other diseases of the circulatory system
CPT/HCPCS: 99283

== ENCOUNTER 2019-02-18 20:02 | Emergency (ER) | payer MEDICARE, MEDICAID ==
[~2019-02-18] VITALS: Ht 157 cm; Wt 67.0 kg
[~2019-02-18 20:02] MED LIST changes: +DOXY100T2 PO
[2019-02-18] MEDS ORDERED: MECL-124 PO (20:38)
--- NOTE | 2019-02-18 20:38 | ED General ---
General Chief Complaint: General Problems/Pain Stated Complaint: DIZZINESS Nursing Triage Note: ARRIVED VIA AMB WITH RENE. RENE STATES PT HAS BEEN DIZZY OFF AND ON FOR 2MONTHS AND HAS SEEN HER DR FOR IT. BRE COMPLAINED OF DIZZINESS AND WAS GIVEN 8 MG OF ZOFRAN. RENE WAS GETTING PT IN BED PT'S EYES "FLICKERED" AND ROLLED TO THE BACK OF HER HEAD AND IT SCARED THEM. PT STATES SHE FEELS FINE NOW. Nursing Sepsis Screen: No Definite Risk Source of Information: Patient Exam Limitations: No Limitations History of Present Illness Date Seen by Provider: Feb 18, 2019 Time Seen by Provider: 20:35 Initial Comments To ER by daughter with reports of dizziness with movement, not at rest for the past month or 2 intermittently. Daughter takes care of her states that this evening she was putting a patient into bed and her eyes fluttered and seemed to jerk. Concerned her so she brought patient here. Patient states that at this time she is no longer dizzy and was she moves, she otherwise feels fine. Timing/Duration: Intermittent Severity: Moderate Allergies and Home Medications Allergies Coded Allergies: codeine (Verified Allergy, Mild, ITCHING, Pt has received Lortab in the past, 07/02/18) Sulfa (Sulfonamide Antibiotics) (Verified Allergy, Unknown, HIVES, 02/07/18) Home Medications Acetaminophen 500 Mg Tablet, 500 MG PO TID PRN for PAIN-MILD, (Reported) Albuterol Sulfate 18 Gm Hfa.aer.ad, 2 PUFF INH Q6H PRN for SHORTNESS OF BREATH, (Reported) Bumetanide 1 Mg Tablet, 1 MG PO 0800,1200, (Reported) Carvedilol 12.5 Mg Tablet, 25 MG PO BID Prescribed by: MIRELA LYLE on 09/18/18 1037 Doxazosin Mesylate 2 Mg Tablet, 2 MG PO HS, (Reported) Doxycycline Hyclate 100 Mg Tablet, 100 MG PO BID Prescribed by: AFSANEH CANALES on 01/23/19 2002 Ergocalciferol (Vitamin D2) 50,000 Unit Capsule, 50,000 UNIT PO WEEK, (Reported) Insulin Aspart 300 Units/3 Ml Solution, SC QID, (Reported) 181-200 = 4 UNITS 201-250 = 6 UNITS 251-300 = 8 UNITS 301-350 = 10 UNITS 351- 400 = 12 UNITS >400 CONTACT PCP Ipratropium/Albuterol Sulfate 3 Ml Ampul.neb, 3 ML IH Q4H PRN for SHORTNESS OF BREATH, (Reported) Levofloxacin 250 Mg Tablet, 250 MG PO DAILY Prescribed by: MIRELA LYLE on 09/18/18 1037 Nitrofurantoin Monohyd/M-Cryst 100 Mg Capsule, 1 TAB PO BID Prescribed by: HOLGER AWITE on 12/23/18 1511 Nitrofurantoin Monohyd/M-Cryst 100 Mg Capsule, 1 TAB PO BID Prescribed by: HOLGER WAITE on 12/23/18 1536 Sodium Bicarbonate 650 Mg Tablet, 650 MG PO BID, (Reported) Tramadol HCl 50 Mg Tablet, 25 MG PO TID PRN for PAIN-MODERATE, (Reported) TAKES 1/2 (50MG) TABLET Ziprasidone HCl 20 Mg Capsule, 20 MG PO BID, (Reported) Patient Home Medication List Home Medication List Reviewed: Yes Review of Systems Review of Systems Constitutional: see HPI EENTM: see HPI Respiratory: no symptoms reported Cardiovascular: no symptoms reported Genitourinary: no symptoms reported Musculoskeletal: see HPI Skin: no symptoms reported Psychiatric/Neurological: No Symptoms Reported Hematologic/Lymphatic: No Symptoms Reported Past Mczsfrm-Lcbioz-Uptqym Hx Patient Social History Alcohol Use: Denies Use Recreational Drug Use: No Drug of Choice: opioids Smoking Status: Current Someday Smoker Type Used: Cigars Former Smoker, Quit: May 23, 2018 2nd Hand Smoke Exposure: Yes Recent Foreign Travel: No Contact w/Someone Who Travel: No Recent Infectious Disease Expo: No Recent Hopitalizations: Yes ([facility] - stroke May 2018 ) Physical Abuse: No Sexual Abuse: No Mistreated: No Fear: No Immunizations Up To Date Tetanus Booster (TDap): Less than 5yrs Date of Pneumonia Vaccine: Jun 09, 2008 Date of Influenza Vaccine: Jun 28, 2017 Seasonal Allergies Seasonal Allergies: Yes Past Medical History Surgeries: Yes (Left breast cyst, x2, ORIF Right ankle) Section, Gallbladder, Orthopedic, Tubal Ligation Respiratory: Yes (CPAP not used after last sleep study) Sleep Apnea, COPD Cardiac: Yes Chronic Edema/Swelling, High Cholesterol, Hypertension Neurological: Yes (HYPOGLYCEMIC ENCEPHALOPATHY) Neuropathy, Traumatic Brain Injury 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 Disorders: No 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 Sexually Transmitted Disease: No HIV/AIDS: No Genitourinary: Yes Renal Failure, UTI-Chronic Gastrointestinal: Yes Gastroesophageal Reflux, Pancreatitis Musculoskeletal: Yes (right ankle fx with steel plate) Degenerate Disk Disease, Chronic Back Pain Endocrine: Yes Diabetes, Insulin dep HEENT: No Cancer: No Psychosocial: Yes (DGTR STATES PT HAS ADDICTIVE PERSONALITY) Sleep Difficulties, Anxiety, Depression Integumentary: Yes (FREQUENT CELLULITIS--LEGS) Recent Skin Changes Blood Disorders: No Adverse Reaction/Blood Tranf: No Family Medical History Completed stroke 19 FATHER Congenital heart disease 19 FATHER Diabetes mellitus 19 FATHER Myocardial infarction 19 FATHER Psychosocial problem 19 FATHER (depression) 19 MOTHER (depression) Respiratory disorder 19 MOTHER (copd) No Pertinent Family Hx, Diabetes Physical Exam Vital Signs Vital Signs - First Documented 02/18/19 20:14 Temp 37.2 Pulse 76 Resp 16 B/P (MAP) 124/78 (93) Pulse Ox 97 O2 Delivery Room Air Capillary Refill : Less Than 3 Seconds Height, Weight, BMI Height: 5'2.00" Weight: 170lbs. 2.0oz. 77.107673kb; 27.00 BMI Method:Stated General Appearance: No Apparent Distress, WD/WN Eyes: Bilateral Eye Normal Inspection, Bilateral Eye PERRL, Bilateral Eye EOMI, Bilateral Eye Other (mild nystagmus horizontal) HEENT: PERRL/EOMI, TMs Normal Neck: Full Range of Motion, Normal Inspection Respiratory: No Accessory Muscle Use, No Respiratory Distress Cardiovascular: Regular Rate, Rhythm, Normal Peripheral Pulses Gastrointestinal: Normal Bowel Sounds, Non Tender, Soft Neurologic/Psychiatric: Alert, Oriented x3 Skin: Normal Color, Warm/Dry Procedures/Interventions Date of ETT Placement: Jun 03, 2018 Time of ETT Placement: 1310 Progress/Results/Core Measures Suspected Sepsis Recent Fever Within 48 Hours: No Infection Criteria Present: None New/Unexplained Altered Menta: No Sepsis Screen: No Definite Risk SIRS Temperature: Pulse: 76 Respiratory Rate: 16 Blood Pressure 124 /78 Mean: 93 Results/Orders My Orders Orders - BRITTNEY CARTER APRN Meclizine Tablet (Antivert Tablet) (02/18/19 20:45) Vital Signs/I&O 02/18/19 20:14 Temp 37.2 Pulse 76 Resp 16 B/P (MAP) 124/78 (93) Pulse Ox 97 O2 Delivery Room Air Capillary Refill : Less Than 3 Seconds Blood Pressure Mean: 93 Departure Communication (Admissions) Symptoms of been ongoing for 1-2 months. No other neurologic deficits. She has history of anoxic brain injury and requires caregiver. We will discharged home on meclizine, if this fails to improve her symptoms she can have an outpatient MRI. Impression Primary Impression: Vertigo Disposition: HOME, SELF-CARE Condition: Stable Departure-Patient Inst. Decision time for Depature: 20:37 Referrals: MIRELA LYLE DO (PCP/Family) Primary Care Physician Patient Instructions: Vertigo (a Type of Dizziness) (DC) Add. Discharge Instructions: 1. If this fails to improve, follow-up with Dr. LYLE to discuss further workup. All discharge instructions reviewed with patient and/or family. Voiced understanding. Scripts Meclizine HCl (Meclizine HCl) 25 Mg Tab.chew 25 MG PO TID PRN for DIZZINESS, #21 TAB Prov: BRITTNEY CARTER APRN 02/18/19 BRITTNEY CARTER APRN Feb 18, 2019 20:38
[2019-02-18 20:44] VITALS: BP 122/77
[2019-02-18] MEDS ORDERED: MECLIZINE 25 MG (ANTIVERT) TAB PO ONE (20:45)
== END 2019-02-18 20:45 | disposition home or self-care (01) ==
LOC: EDUNIT# 20:02 → ER 20:04
DX: R42 Dizziness and giddiness (principal); I10 Essential (primary) hypertension; E11.40 Type 2 diabetes mellitus with diabetic neuropathy, unspecified; J44.9 Chronic obstructive pulmonary disease, unspecified; E78.00 Pure hypercholesterolemia, unspecified; K21.9 Gastro-esophageal reflux disease without esophagitis; F32.9 Major depressive disorder, single episode, unspecified; F41.9 Anxiety disorder, unspecified; F17.290 Nicotine dependence, other tobacco product, uncomplicated; Z87.19 Personal history of other diseases of the digestive system; Z87.440 Personal history of urinary (tract) infections; Z87.820 Personal history of traumatic brain injury; Z98.51 Tubal ligation status; Z88.5 Allergy status to narcotic agent; Z88.2 Allergy status to sulfonamides; Z79.4 Long term (current) use of insulin; Z82.49 Family history of ischemic heart disease and other diseases of the circulatory system
CPT/HCPCS: 99283

== ENCOUNTER 2019-04-27 14:23 | Outpatient (RCR) | payer MEDICARE, MEDICAID ==
[2019-03-15] MEDS: CATHETER FLUSH 10 ML SYR IV PRN (10:44)
[2019-03-15 10:45] VITALS: BP 115/71
[~2019-04-27] VITALS: Wt 67.0 kg
[~2019-04-27 14:23] MED LIST changes: +MECL-124 PO; -TRAM50TA2 PO; +TRM50T PO
[2019-04-27 14:24] VITALS: BP 125/73
[2019-04-27] MEDS ORDERED: HEParin (CENTRAL IV FLUSH) 500 UNIT/5 ML SYR ONE (14:24)
[2019-04-27] MEDS: CATHETER FLUSH 10 ML SYR IV PRN (14:30)
[2019-04-27] MEDS ORDERED: HEParin (CENTRAL IV FLUSH) 500 UNIT/5 ML SYR IV ONE (15:00)
[2019-05-10] MEDS ORDERED: CEPH500T PO (11:11)
--- NOTE | 2019-05-24 13:30 | NUR ---
PATIENT'S DAUGHTER CALLED STATING PT WILL NOT BE IN FOR SCHEDULED PORT FLUSH 05/25/19 BECAUSE IT WAS USED IN ER ON 05/10/19, THEREFORE NOT DUE FOR FLUSH UNTIL 06/07/19. STATES PT WILL BE HAVING DENTAL SURGERY IN [place] THE WEEK AFTER THIS AND THE PORT WILL BE USED AT THAT TIME, SO WILL RETURN TO [facility] FOR PORT FLUSH ON 07/14/2019.
== END 2019-06-13 | disposition home or self-care (01) ==
LOC: SDC 14:23
PROVIDERS: ATTEND Family Medicine
DX: Z45.2 Encounter for adjustment and management of vascular access device (principal)
CPT/HCPCS: 96523

== ENCOUNTER 2019-05-10 09:20 | Emergency (ER) | payer MEDICARE, MEDICAID ==
[~2019-05-10] VITALS: Ht 157.5 cm; Wt 77.3 kg
[~2019-05-10 09:20] MED LIST changes: -CEPH500T PO
[2019-05-10 09:40] LABS: BILIRUBIN,URINE NEGATIVE (NEGATIVE); CLARITY,URINE SL CLOUDY; COLOR,URINE YELLOW; GLUCOSE, URINE (UA) 1+ (NEGATIVE); KETONES,URINE NEGATIVE (NEGATIVE); LEUKOCYTE ESTERASE ,URINE 1+ (NEGATIVE); NITRITE,URINE NEGATIVE (NEGATIVE); PH,URINE 5.5 (5-9); PROTEIN,URINE 2+ (NEGATIVE)
[2019-05-10 09:42] LABS: HEMOGLOBIN 10.3 G/DL (11.5-16.0); MEAN PLATELET VOLUME 9.4 FL (7.4-10.4); RED CELL DISTRIBUTION WIDTH 13.9 % (10.0-14.5)
[2019-05-10 09:53] LABS: BACTERIA,URINE MODERATE /HPF; WBC,URINE 50-100 /HPF
[2019-05-10 09:55] LABS: AMPHETAMINE SCREEN, URINE NEGATIVE (NEGATIVE); BARBITURATE SCREEN URINE NEGATIVE (NEGATIVE); BENZODIAZEPINES SCREEN URINE NEGATIVE (NEGATIVE); CANNABINOID SCREEN, URINE POSITIVE (NEGATIVE); COCAINE SCREEN URINE NEGATIVE (NEGATIVE); METHADONE STAT NEGATIVE (NEGATIVE); METHAMPHETAMINE SCREEN URINE S NEGATIVE (NEGATIVE); OPIATE SCREEN URINE NEGATIVE (NEGATIVE); OXYCODONE STAT NEGATIVE (NEGATIVE); PROPOXYPHENE STAT NEGATIVE (NEGATIVE); TRICYCLIC ANTIDEPRESSANTS SCRE NEGATIVE (NEGATIVE)
--- NOTE | 2019-05-10 09:58 | Diagnostic Imaging Report ---
PROCEDURE: CT head wo r/o stroke. TECHNIQUE: Multiple contiguous axial images were obtained through the brain without the use of intravenous contrast. Auto Exposure Controls were utilized during the CT exam to meet ALARA standards for radiation dose reduction. INDICATION: Altered mental status. Evaluate for stroke. Dizziness. COMPARISON: 12/23/2018 FINDINGS: The ventricles and cortical sulci are age-appropriate. There is no midline shift or mass-effect. No acute intracranial hemorrhage is seen. There is no CT evidence of acute territorial ischemia. No focal masses or collections are present. The calvarium is intact. The visualized paranasal sinuses are clear. IMPRESSION: No hemorrhage or focal intra-axial mass. No CT evidence of large acute territorial ischemia. Dictated by: Dictated on workstation # [id number]
[2019-05-10 10:00] LABS: ACETAMINOPHEN < 10 UG/ML (10-30); ALANINE AMINOTRANSFERASE 9 U/L (0-55); ALBUMIN 3.4 GM/DL (3.2-4.5); ALKALINE PHOSPHATASE 90 U/L (40-136); BILIRUBIN,TOTAL 0.3 MG/DL (0.1-1.0); BUN/CREATININE RATIO 18; CALCIUM 8.7 MG/DL (8.5-10.1); CARBON DIOXIDE 22 MMOL/L (21-32); CHLORIDE 108 MMOL/L (98-107); CREATININE SERUM 2.27 MG/DL (0.60-1.30); GFR ESTIMATED 23; GLUCOSE 145 MG/DL (70-105); POTASSIUM 4.2 MMOL/L (3.6-5.0); SODIUM 139 MMOL/L (135-145); TOTAL PROTEIN 6.5 GM/DL (6.4-8.2)
[2019-05-10] MEDS ORDERED: NS IV 1000 ML 1,000 ML IV SCH (10:11)
[2019-05-10] MEDS ORDERED: cefTRIAXone FOR IV USE 1,000 MG in WATER (STERILE) FOR INJECTION 10 ML IV ONE (10:15)
--- NOTE | 2019-05-10 10:29 | NUR ---
1L NS bolus initiated by CC ems, complete. 1000ml intake.
--- NOTE | 2019-05-10 10:46 | Diagnostic Imaging Report ---
INDICATION: Altered mental status with possible drug overdose and slurred speech Portable upright AP view of the chest is obtained with comparison made to the study of 09/16/2018. Overall heart size and pulmonary vascularity are within normal limits. Right anterior chest wall port is seen with catheter tip projecting over the mid superior vena cava. No pneumothorax or consolidation is identified. There is no evidence of significant pleural fluid. IMPRESSION: No acute abnormality or adverse change. Dictated by: Dictated on workstation # [id number]
--- NOTE | 2019-05-10 11:09 | ED General ---
General Chief Complaint: Neurological Problems Stated Complaint: AMS Nursing Triage Note: Pt to room #8 via [facility] ems cart from home with c/o altered mental status. [facility] ems accessed port to Rt chest wall and initiated NS fluid bolus. Ems advise pt daughter dispatched EMS d/t pt experiencing lethragy. Ems advise pt LKWT of 0900 on 05/09/19. Upon arrival pt reports to have taken unknown amount of childrens motrin and tylenol PM on the evening of 05/09/19 in an attempt to "fall asleep." Pt a&ox3 with slurred speach noted. Nursing Sepsis Screen: No Definite Risk Source of Information: Patient, EMS Exam Limitations: No Limitations History of Present Illness Date Seen by Provider: May 10, 2019 Time Seen by Provider: 09:25 Initial Comments 53-year-old female brought in because she was lethargic. Patient is brought in by EMS. That EMS was called by her daughter. Patient last known well time was at 9:00 yesterday. Patient reports that she took some Tylenol PM with Benadryl last night of try to fall asleep. Patient was initially lethargic when EMS arrived bit upon arrival to the ER patient is alert orientated with no deficits. Patient reports that she thinks she was just little got groggy and sleepy when they got there. Patient denies any focal weakness along with EMS and now. Patient does have a prior history of stroke. No other complaints at this time. Allergies and Home Medications Allergies Coded Allergies: codeine (Verified Allergy, Mild, ITCHING, Pt has received Lortab in the past, 07/02/18) Sulfa (Sulfonamide Antibiotics) (Verified Allergy, Unknown, HIVES, 02/07/18) Home Medications Acetaminophen 500 Mg Tablet, 500 MG PO TID PRN for PAIN-MILD, (Reported) Albuterol Sulfate 18 Gm Hfa.aer.ad, 2 PUFF INH Q6H PRN for SHORTNESS OF BREATH, (Reported) Bumetanide 1 Mg Tablet, 1 MG PO 0800,1200, (Reported) Carvedilol 12.5 Mg Tablet, 25 MG PO BID Prescribed by: MIRELA LYLE on 09/18/18 1037 Cephalexin 500 Mg Tablet, 500 MG PO QID Prescribed by: FLORINDA FERNANDEZ on 05/10/19 1111 Doxazosin Mesylate 2 Mg Tablet, 2 MG PO HS, (Reported) Doxycycline Hyclate 100 Mg Tablet, 100 MG PO BID Prescribed by: AFSANEH CANALES on 01/23/192001 Ergocalciferol (Vitamin D2) 50,000 Unit Capsule, 50,000 UNIT PO WEEK, (Reported) Insulin Aspart 300 Units/3 Ml Solution, SC QID, (Reported) 181-200 = 4 UNITS 201-250 = 6 UNITS 251-300 = 8 UNITS 301-350 = 10 UNITS 351- 400 = 12 UNITS >400 CONTACT PCP Ipratropium/Albuterol Sulfate 3 Ml Ampul.neb, 3 ML IH Q4H PRN for SHORTNESS OF BREATH, (Reported) Levofloxacin 250 Mg Tablet, 250 MG PO DAILY Prescribed by: MIRELA LYLE on 09/18/18 1037 Meclizine HCl 25 Mg Tab.chew, 25 MG PO TID PRN for DIZZINESS Prescribed by: BRITTNEY CARTER on 02/18/19 2038 Nitrofurantoin Monohyd/M-Cryst 100 Mg Capsule, 1 TAB PO BID Prescribed by: HOLGER WAITE on 12/23/18 1511 Nitrofurantoin Monohyd/M-Cryst 100 Mg Capsule, 1 TAB PO BID Prescribed by: HOLGER WAITE on 12/23/18 1536 Sodium Bicarbonate 650 Mg Tablet, 650 MG PO BID, (Reported) Tramadol HCl 50 Mg Tablet, 25 MG PO TID PRN for PAIN-MODERATE, (Reported) TAKES 1/2 (50MG) TABLET Ziprasidone HCl 20 Mg Capsule, 20 MG PO BID, (Reported) Patient Home Medication List Home Medication List Reviewed: Yes Review of Systems Review of Systems Constitutional: No chills, No fever EENTM: no symptoms reported Respiratory: No cough, No short of breath Cardiovascular: No chest pain, No palpitations Gastrointestinal: no symptoms reported Genitourinary: no symptoms reported Musculoskeletal: no symptoms reported Psychiatric/Neurological: See HPI Past Gqyzsld-Zwxppg-Yfkjlm Hx Past Med/Social Hx: Reviewed Nursing Past Med/Soc Hx Patient Social History Alcohol Use: Denies Use Recreational Drug Use: No Drug of Choice: opioids Smoking Status: Current Someday Smoker Type Used: Cigars Former Smoker, Quit: May 23, 2018 2nd Hand Smoke Exposure: Yes Recent Foreign Travel: No Contact w/Someone Who Travel: No Recent Infectious Disease Expo: No Recent Hopitalizations: Yes ([facility] - stroke May 2018 ) Physical Abuse: No Sexual Abuse: No Immunizations Up To Date Tetanus Booster (TDap): Less than 5yrs Date of Pneumonia Vaccine: Jun 09, 2008 Date of Influenza Vaccine: Jun 28, 2017 Seasonal Allergies Seasonal Allergies: Yes Past Medical History Surgeries: Yes (Left breast cyst, x2, ORIF Right ankle) Section, Gallbladder, Orthopedic, Tubal Ligation Respiratory: Yes (CPAP not used after last sleep study) Sleep Apnea, COPD Cardiac: Yes Chronic Edema/Swelling, High Cholesterol, Hypertension Neurological: Yes (HYPOGLYCEMIC ENCEPHALOPATHY) Neuropathy, Stroke, Traumatic Brain Injury 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 Disorders: No 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 Sexually Transmitted Disease: No HIV/AIDS: No Genitourinary: Yes Renal Failure, UTI-Chronic Gastrointestinal: Yes Gastroesophageal Reflux, Pancreatitis Musculoskeletal: Yes (right ankle fx with steel plate) Degenerate Disk Disease, Chronic Back Pain Endocrine: Yes Diabetes, Insulin dep HEENT: No Cancer: No Psychosocial: Yes (DGTR STATES PT HAS ADDICTIVE PERSONALITY) Sleep Difficulties, Anxiety, Depression Integumentary: Yes (FREQUENT CELLULITIS--LEGS) Recent Skin Changes Blood Disorders: No Adverse Reaction/Blood Tranf: No Family Medical History Completed stroke 19 FATHER Congenital heart disease 19 FATHER Diabetes mellitus 19 FATHER Myocardial infarction 19 FATHER Psychosocial problem 19 FATHER (depression) 19 MOTHER (depression) Respiratory disorder 19 MOTHER (copd) No Pertinent Family Hx, Diabetes Physical Exam Vital Signs Vital Signs - First Documented 05/10/19 09:20 Temp 36.4 Pulse 62 Resp 17 B/P (MAP) 133/99 (110) Pulse Ox 100 O2 Delivery Room Air Capillary Refill : Less Than 3 Seconds Height, Weight, BMI Height: 5'2.00" Weight: 170lbs. 2.0oz. 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 Norm as Tested Skin: Normal Color, Warm/Dry Lymphatic: No Adenopathy Procedures/Interventions Date of ETT Placement: Jun 03, 2018 Time of ETT Placement: 1310 Progress/Results/Core Measures Suspected Sepsis Recent Fever Within 48 Hours: No Infection Criteria Present: None New/Unexplained Altered Menta: No Sepsis Screen: No Definite Risk SIRS Temperature: Pulse: 62 Respiratory Rate: 17 Laboratory Tests 05/10/19 09:36: White Blood Count 8.0 Blood Pressure 133 /99 Mean: 110 Laboratory Tests 05/10/19 09:36: Creatinine 2.27H, Platelet Count 304, Total Bilirubin 0.3 Results/Orders Lab Results Laboratory Tests Test 05/10/19 09:36 05/10/19 09:42 Range/Units White Blood Count 8.0 4.3-11.0 10^3/uL Red Blood Count 3.39 L 4.35-5.85 10^6/uL Hemoglobin 10.3 L 11.5-16.0 G/DL Hematocrit 31 L 35-52 % Mean Corpuscular Volume 90 80-99 FL Mean Corpuscular Hemoglobin 30 25-34 PG Mean Corpuscular Hemoglobin Concent 34 32-36 G/DL Red Cell Distribution Width 13.9 10.0-14.5 % Platelet Count 304 130-400 10^3/uL Mean Platelet Volume 9.4 7.4-10.4 FL Urine Color YELLOW Urine Clarity SL CLOUDY Urine pH 5.5 5-9 Urine Specific [place] 1.025 H 1.016-1.022 Urine Protein 2+ H NEGATIVE Urine Glucose (UA) 1+ H NEGATIVE Urine Ketones NEGATIVE NEGATIVE Urine Nitrite NEGATIVE NEGATIVE Urine Bilirubin NEGATIVE NEGATIVE Urine Urobilinogen 0.2 < = 1.0 MG/DL Urine Leukocyte Esterase 1+ H NEGATIVE Urine RBC (Auto) NEGATIVE NEGATIVE Urine RBC NONE /HPF Urine WBC 50-100 H /HPF Urine Squamous Epithelial Cells 5-10 /HPF Urine Crystals NONE /LPF Urine Bacteria MODERATE H /HPF Urine Casts NONE /LPF Urine Mucus NEGATIVE /LPF Urine Culture Indicated YES Sodium Level 139 135-145 MMOL/L Potassium Level 4.2 3.6-5.0 MMOL/L Chloride Level 108 H 98-107 MMOL/L Carbon Dioxide Level 22 21-32 MMOL/L Anion Gap 9 5-14 MMOL/L Blood Urea Nitrogen 41 H 7-18 MG/DL Creatinine 2.27 H 0.60-1.30 MG/DL Estimat Glomerular Filtration Rate 23 BUN/Creatinine Ratio 18 Glucose Level 145 H 70-105 MG/DL Calcium Level 8.7 8.5-10.1 MG/DL Corrected Calcium 9.2 8.5-10.1 MG/DL Total Bilirubin 0.3 0.1-1.0 MG/DL Aspartate Amino Transf (AST/SGOT) 9 5-34 U/L Alanine Aminotransferase (ALT/SGPT) 9 0-55 U/L Alkaline Phosphatase 90 40-136 U/L Troponin I < 0.028 <0.028 NG/ML Total Protein 6.5 6.4-8.2 GM/DL Albumin 3.4 3.2-4.5 GM/DL Urine Opiates Screen NEGATIVE NEGATIVE Urine Oxycodone Screen NEGATIVE NEGATIVE Urine Methadone Screen NEGATIVE NEGATIVE Urine Propoxyphene Screen NEGATIVE NEGATIVE Acetaminophen Level < 10 L 10-30 UG/ML Urine Barbiturates Screen NEGATIVE NEGATIVE Ur Tricyclic Antidepressants Screen NEGATIVE NEGATIVE Urine Phencyclidine Screen NEGATIVE NEGATIVE Urine Amphetamines Screen NEGATIVE NEGATIVE Urine Methamphetamines Screen NEGATIVE NEGATIVE Urine Benzodiazepines Screen NEGATIVE NEGATIVE Urine Cocaine Screen NEGATIVE NEGATIVE Urine Cannabinoids Screen POSITIVE H NEGATIVE Glucometer 140 H 70-110 MG/DL My Orders Orders - FERNANDEZ,FLORINDA L DO Ct Head Wo-R/O Stroke (05/10/19 09:28) Acetaminophen (05/10/19 09:28) Cbc No Diff (05/10/19 09:28) Comprehensive Metabolic Panel (05/10/19 09:28) Drug Screen Stat (Urine) (05/10/19 09:28) Troponin I (05/10/19 09:28) Ua Culture If Indicated (05/10/19 09:28) Accucheck Stat ONCE (05/10/19 09:28) Ekg Tracing (05/10/19 09:28) Chest 1 View, Ap/Pa Only (05/10/19 09:28) Urine Culture (05/10/19 09:36) Ceftriaxone For Iv Use (Rocephin For I (05/10/19 10:15) Ed Iv/Invasive Line Start (05/10/19 10:11) Ns Iv 1000 Ml (Sodium Chloride 0.9%) (05/10/19 10:11) Medications Given in ED Current Medications Medications Dose Ordered Sig/Amy Route Start Time Stop Time Status Last Admin Dose Admin Ceftriaxone Sodium 1000 mg/ Sterile Water 10 ml @ 200 mls/hr ONCE ONCE IV 05/10/19 10:15 05/10/19 10:17 DC 05/10/19 10:23 200 MLS/HR Vital Signs/I&O 05/10/19 09:20 Temp 36.4 Pulse 62 Resp 17 B/P (MAP) 133/99 (110) Pulse Ox 100 O2 Delivery Room Air Capillary Refill : Less Than 3 Seconds Blood Pressure Mean: 110 POS Point of Care Testing Finger Stick Blood Glucose: 140 Blood Glucose Action Taken: Dr. Fernandez notified. Progress Note : Time: 11:08 Progress Note Patient with no acute focal deficits or findings upon arrival exam or throughout her stay. Patient does have a urinary tract infection, is positive for marijuana and is mildly dehydrated.. Patient otherwise no acute findings on CT are labs. Patient received IV Rocephin and 1 L normal saline. I discussed findings with her and recommended she follow up with her primary care provider in 2-3 days for continuation of care and recheck of her labs. Patient is discharged home in stable condition Departure Impression Primary Impression: Cystitis Additional Impression: Acute renal insufficiency Disposition: 01 HOME, SELF-CARE Condition: Stable Departure-Patient Inst. Referrals: MIRELA LYLE DO (PCP/Family) Primary Care Physician Patient Instructions: Acute Cystitis (DC), Kidney Failure (DC) Add. Discharge Instructions: Follow-up with your primary care provider in 2-3 days for recheck of labs attenuation of care All discharge instructions reviewed with patient and/or family. Voiced understanding. Scripts Cephalexin (Cephalexin) 500 Mg Tablet 500 MG PO QID, #20 TAB 0 Refills Prov: FLORINDA FERNANDEZ DO 05/10/19 FLORINDA FERNANDEZ DO May 10, 2019 11:09 POS
[2019-05-10] MEDS ORDERED: CEPH500T PO (11:11)
--- NOTE | 2019-05-10 11:50 | NUR ---
Contacted daughter, Alla, to request pt transport home.
[2019-05-10 11:55] VITALS: BP 117/85
== END 2019-05-10 12:15 | disposition home or self-care (01) ==
LOC: EDUNIT# 09:20 → ER 09:24
DX: N30.90 Cystitis, unspecified without hematuria (principal); N28.9 Disorder of kidney and ureter, unspecified; J44.9 Chronic obstructive pulmonary disease, unspecified; I10 Essential (primary) hypertension; E78.00 Pure hypercholesterolemia, unspecified; E11.40 Type 2 diabetes mellitus with diabetic neuropathy, unspecified; K21.9 Gastro-esophageal reflux disease without esophagitis; F41.9 Anxiety disorder, unspecified; F32.9 Major depressive disorder, single episode, unspecified; F17.290 Nicotine dependence, other tobacco product, uncomplicated; Z87.440 Personal history of urinary (tract) infections; Z82.49 Family history of ischemic heart disease and other diseases of the circulatory system; Z98.51 Tubal ligation status; Z86.73 Personal history of transient ischemic attack (TIA), and cerebral infarction without residual deficits; Z88.5 Allergy status to narcotic agent; Z88.2 Allergy status to sulfonamides; Z79.4 Long term (current) use of insulin
CPT/HCPCS: 36415; 70450; 71045; 80053; 80306; 80329; 81000; 82962; 84484; 85027; 87088; 93005; 96374

== ENCOUNTER → 2019-05-10 | Outpatient (CLI) | payer MEDICARE, MEDICAID ==
[~2019-05-10] MED LIST changes: +CEPH500T PO; +TRAM50TA2 PO; -TRM50T PO
[2019-05-10 13:30] LABS: ALBUMIN 3.7 GM/DL (3.2-4.5); CREATININE SERUM 2.19 MG/DL (0.60-1.30); PHOSPHORUS 4.9 MG/DL (2.3-4.7)
== END ==
LOC: LAB 12:40
PROVIDERS: ATTEND Internal Medicine Nephrology
DX: Z01.89 Encounter for other specified special examinations (principal)
CPT/HCPCS: 80069

== ENCOUNTER 2019-07-29 12:40 | Outpatient (CLI) | payer MEDICARE, MEDICAID ==
[~2019-07-29 12:40] MED LIST changes: +CEPH500T PO; +OMEP-280 PO; -OMEP20CA13 PO; -TRAM50TA2 PO; +TRM50T PO
[2019-07-29 13:15] VITALS: BP 89/63
[2019-07-29 13:38] LABS: BASOPHILS % (AUTO) 0 % (0-10); EOSINOPHILS # (AUTO) 0.2 10^3/uL (0.0-0.3); EOSINOPHILS % (AUTO) 2 % (0-10); HEMATOCRIT 34 % (35-52); HEMOGLOBIN 11.4 G/DL (11.5-16.0); LYMPHOCYTES # (AUTO) 2.5 X 10^3 (1.0-4.0); LYMPHOCYTES % (AUTO) 25 % (12-44); MEAN CORPUSCULAR HEMOGLOBIN 30 PG (25-34); MEAN CORPUSCULAR HGB CONC 34 G/DL (32-36); MEAN CORPUSCULAR VOLUME 89 FL (80-99); MEAN PLATELET VOLUME 10.3 FL (7.4-10.4); MONOCYTES # (AUTO) 0.6 X 10^3 (0.0-1.0); MONOCYTES % (AUTO) 6 % (0-12); NEUTROPHILS # (AUTO) 6.6 X 10^3 (1.8-7.8); NEUTROPHILS % (AUTO) 67 % (42-75); PLATELET COUNT 262 10^3/uL (130-400); RED CELL DISTRIBUTION WIDTH 13.6 % (10.0-14.5); WHITE BLOOD COUNT 9.9 10^3/uL (4.3-11.0)
[2019-07-29 13:52] LABS: ALBUMIN 3.5 GM/DL (3.2-4.5); BILIRUBIN,TOTAL 0.3 MG/DL (0.1-1.0); CALCIUM 8.8 MG/DL (8.5-10.1); CREATININE SERUM 2.53 MG/DL (0.60-1.30); POTASSIUM 4.3 MMOL/L (3.6-5.0); TOTAL PROTEIN 6.9 GM/DL (6.4-8.2)
[2019-07-29 14:12] LABS: FREE T4 (FREE THYROXINE) 0.8 NG/DL (0.70-1.48)
== END 2019-07-29 13:15 | disposition home or self-care (01) ==
LOC: LAB 12:40
PROVIDERS: ATTEND Family Medicine
DX: E11.22 Type 2 diabetes mellitus with diabetic chronic kidney disease (principal); N18.9 Chronic kidney disease, unspecified
CPT/HCPCS: 36415; 36591; 80053; 83036; 84439; 84443; 85025

== ENCOUNTER 2019-09-28 11:15 | Outpatient (RCR) | payer MEDICARE, MEDICAID ==
[2019-08-26 13:30] VITALS: BP 103/67
[2019-09-28 11:35] VITALS: BP 124/84
== END 2019-11-24 | disposition home or self-care (01) ==
LOC: SDC 11:15
PROVIDERS: ATTEND Family Medicine
DX: Z45.2 Encounter for adjustment and management of vascular access device (principal)
CPT/HCPCS: 36591; 96523

== ENCOUNTER → 2019-09-28 | Outpatient (CLI) | payer MEDICARE, MEDICAID ==
[~2019-09-28] MED LIST changes: -OMEP-280 PO; +OMEP20CA18 PO; +ONDA-105 PO; -ONDA4TAB10 PO
[2019-09-28 11:43] LABS: BASOPHILS % (AUTO) 0 % (0-10); BILIRUBIN,URINE NEGATIVE (NEGATIVE); CLARITY,URINE CLOUDY; COLOR,URINE YELLOW; EOSINOPHILS # (AUTO) 0.2 10^3/uL (0.0-0.3); EOSINOPHILS % (AUTO) 3 % (0-10); GLUCOSE, URINE (UA) NEGATIVE (NEGATIVE); HEMATOCRIT 35 % (35-52); HEMOGLOBIN 11.5 G/DL (11.5-16.0); KETONES,URINE NEGATIVE (NEGATIVE); LEUKOCYTE ESTERASE ,URINE 3+ (NEGATIVE); LYMPHOCYTES # (AUTO) 2.6 X 10^3 (1.0-4.0); LYMPHOCYTES % (AUTO) 37 % (12-44); MEAN CORPUSCULAR HGB CONC 33 G/DL (32-36); MEAN CORPUSCULAR VOLUME 90 FL (80-99); MONOCYTES # (AUTO) 0.4 X 10^3 (0.0-1.0); MONOCYTES % (AUTO) 6 % (0-12); NEUTROPHILS # (AUTO) 3.7 X 10^3 (1.8-7.8); NEUTROPHILS % (AUTO) 53 % (42-75); NITRITE,URINE NEGATIVE (NEGATIVE); PLATELET COUNT 340 10^3/uL (130-400); PROTEIN,URINE 3+ (NEGATIVE); RED CELL DISTRIBUTION WIDTH 13.1 % (10.0-14.5); WHITE BLOOD COUNT 6.9 10^3/uL (4.3-11.0)
[2019-09-28 11:44] LABS: MEAN CORPUSCULAR HEMOGLOBIN 29 PG (25-34)
[2019-09-28 11:51] LABS: BACTERIA,URINE LARGE /HPF; WBC,URINE >100 /HPF
[2019-09-28 11:57] LABS: ALBUMIN 3.6 GM/DL (3.2-4.5)
[2019-09-28 11:58] LABS: POTASSIUM 4.3 MMOL/L (3.6-5.0)
[2019-09-28 11:59] LABS: CALCIUM 9.3 MG/DL (8.5-10.1)
[2019-09-28 12:03] LABS: PHOSPHORUS 4.1 MG/DL (2.3-4.7)
[2019-09-28 12:04] LABS: CREATININE SERUM 2.3 MG/DL (0.60-1.30)
[2019-09-28 12:06] LABS: MAGNESIUM 2.1 MG/DL (1.6-2.4); URIC ACID 9.2 MG/DL (2.6-7.2)
== END ==
LOC: SDC 11:01
PROVIDERS: ATTEND Internal Medicine Nephrology
DX: I12.9 Hypertensive chronic kidney disease with stage 1 through stage 4 chronic kidney disease, or unspecified chronic kidney disease (principal); N18.4 Chronic kidney disease, stage 4 (severe); D63.1 Anemia in chronic kidney disease; E87.2 Acidosis; E87.5 Hyperkalemia; E83.9 Disorder of mineral metabolism, unspecified
CPT/HCPCS: 36415; 80069; 81000; 82306; 82570; 83735; 83970; 84156; 84550; 85025; 87077; 87088

== ENCOUNTER 2019-12-20 15:02 | Outpatient (RCR) | payer MEDICARE, MEDICAID ==
[~2019-12-20 15:02] MED LIST changes: -HEParin (CENTRAL IV FLUSH) 500 UNIT/5 ML SYR ONE
[2019-12-20 15:20] VITALS: BP 124/84
== END 2020-03-19 | disposition home or self-care (01) ==
LOC: SDC 15:02
PROVIDERS: ATTEND Family Medicine
DX: Z45.2 Encounter for adjustment and management of vascular access device (principal)
CPT/HCPCS: 36591

== ENCOUNTER → 2019-12-20 | Outpatient (CLI) | payer MEDICARE, MEDICAID ==
[~2019-12-20] MED LIST changes: +HEParin (CENTRAL IV FLUSH) 500 UNIT/5 ML SYR ONE; +NF-SODBICA PO; -SODI650T PO
[2019-12-20 15:21] LABS: BASOPHILS % (AUTO) 0 % (0-10); EOSINOPHILS # (AUTO) 0.2 10^3/uL (0.0-0.3); EOSINOPHILS % (AUTO) 2 % (0-10); HEMATOCRIT 37 % (35-52); HEMOGLOBIN 12.4 G/DL (11.5-16.0); LYMPHOCYTES # (AUTO) 2.3 X 10^3 (1.0-4.0); LYMPHOCYTES % (AUTO) 24 % (12-44); MEAN CORPUSCULAR HEMOGLOBIN 30 PG (25-34); MEAN CORPUSCULAR HGB CONC 33 G/DL (32-36); MEAN CORPUSCULAR VOLUME 89 FL (80-99); MEAN PLATELET VOLUME 10.5 FL (7.4-10.4); MONOCYTES # (AUTO) 0.5 X 10^3 (0.0-1.0); MONOCYTES % (AUTO) 5 % (0-12); NEUTROPHILS # (AUTO) 6.5 X 10^3 (1.8-7.8); NEUTROPHILS % (AUTO) 69 % (42-75); PLATELET COUNT 324 10^3/uL (130-400); RED CELL DISTRIBUTION WIDTH 13.2 % (10.0-14.5); WHITE BLOOD COUNT 9.4 10^3/uL (4.3-11.0)
[2019-12-20 15:23] LABS: BILIRUBIN,URINE NEGATIVE (NEGATIVE); CLARITY,URINE SL CLOUDY; COLOR,URINE YELLOW; GLUCOSE, URINE (UA) NEGATIVE (NEGATIVE); KETONES,URINE NEGATIVE (NEGATIVE); LEUKOCYTE ESTERASE ,URINE 3+ (NEGATIVE); NITRITE,URINE NEGATIVE (NEGATIVE); PROTEIN,URINE 2+ (NEGATIVE)
[2019-12-20 15:44] LABS: ALBUMIN 3.8 GM/DL (3.2-4.5)
[2019-12-20 15:45] LABS: POTASSIUM 4.1 MMOL/L (3.6-5.0)
[2019-12-20 15:46] LABS: CALCIUM 9.3 MG/DL (8.5-10.1)
[2019-12-20 15:50] LABS: CREATININE SERUM 2.12 MG/DL (0.60-1.30); PHOSPHORUS 3.6 MG/DL (2.3-4.7)
[2019-12-20 15:53] LABS: MAGNESIUM 2.3 MG/DL (1.6-2.4)
[2019-12-20 16:07] LABS: WBC,URINE TNTC /HPF
[2019-12-20 16:08] LABS: BACTERIA,URINE LARGE /HPF
== END ==
LOC: SDC 14:33
PROVIDERS: ATTEND Internal Medicine
DX: N18.4 Chronic kidney disease, stage 4 (severe) (principal)
CPT/HCPCS: 36415; 80069; 81000; 82306; 82570; 83735; 84156; 85025; 87077; 87088; 87186

== ENCOUNTER 2020-04-09 07:54 | Inpatient (IN) | payer MEDICARE, MEDICAID ==
[~2020-04-09] VITALS: Ht 157.5 cm; Wt 79.5 kg
[~2020-04-09 07:54] MED LIST changes: +AMLO-251 PO; -AMLO10TA7 PO; +NABU-90 PO; -NABU750T PO
--- NOTE | 2020-04-09 08:11 | ED General ---
General Stated Complaint: HYPOTENSION History of Present Illness Date Seen by Provider: Apr 09, 2020 Time Seen by Provider: 08:00 Initial Comments 54-year-old female presents with generalized malaise. Patient has known diabetic issues. EMS reports they were called because he just wasn't feeling well. When they got there she was mildly decreased responsiveness with low blood sugar. They gave her some IV fluids. Around she's become much more responsive. Her blood sugar was in the 90s. It is unknown what it was prior to that. She is very uncontrolled and her diabetic blood sugars. Upon arrival patient does not have a lot of complaints besides just some generalized malaise. There is no reports of cough fevers chills nausea vomiting chest pain. EMS reporst she was little bit clammy when they got her this morning. Allergies and Home Medications Allergies Coded Allergies: codeine (Verified Allergy, Mild, ITCHING, Pt has received Lortab in the past, 07/02/18) Sulfa (Sulfonamide Antibiotics) (Verified Allergy, Unknown, HIVES, 02/07/18) Home Medications Acetaminophen 500 Mg Tablet, 500 MG PO TID PRN for PAIN-MILD, (Reported) Albuterol Sulfate 18 Gm Hfa.aer.ad, 2 PUFF INH Q6H PRN for SHORTNESS OF BREATH, (Reported) Bumetanide 1 Mg Tablet, 1 MG PO 0800,1200, (Reported) Carvedilol 12.5 Mg Tablet, 25 MG PO BID Prescribed by: MIRELA LYLE on 09/18/18 1037 Cephalexin 500 Mg Tablet, 500 MG PO QID Prescribed by: FLORINDA FERNANDEZ on 05/10/19 1111 Doxazosin Mesylate 2 Mg Tablet, 2 MG PO HS, (Reported) Doxycycline Hyclate 100 Mg Tablet, 100 MG PO BID Prescribed by: AFSANEH CANALES on 01/23/192001 Ergocalciferol (Vitamin D2) 50,000 Unit Capsule, 50,000 UNIT PO WEEK, (Reported) Insulin Aspart 300 Units/3 Ml Solution, SC QID, (Reported) 181-200 = 4 UNITS 201-250 = 6 UNITS 251-300 = 8 UNITS 301-350 = 10 UNITS 351- 400 = 12 UNITS >400 CONTACT PCP Ipratropium/Albuterol Sulfate 3 Ml Ampul.neb, 3 ML IH Q4H PRN for SHORTNESS OF BREATH, (Reported) Levofloxacin 250 Mg Tablet, 250 MG PO DAILY Prescribed by: MIRELA LYLE on 09/18/18 1037 Meclizine HCl 25 Mg Tab.chew, 25 MG PO TID PRN for DIZZINESS Prescribed by: BRITTNEY CARTER on 02/18/192037 Nitrofurantoin Monohyd/M-Cryst 100 Mg Capsule, 1 TAB PO BID Prescribed by: HOLGER WAITE on 12/23/18 1511 Nitrofurantoin Monohyd/M-Cryst 100 Mg Capsule, 1 TAB PO BID Prescribed by: HOLGER WAITE on 12/23/18 1536 Sodium Bicarbonate 650 Mg Tablet, 650 MG PO BID, (Reported) Tramadol HCl 50 Mg Tablet, 25 MG PO TID PRN for PAIN-MODERATE, (Reported) TAKES 1/2 (50MG) TABLET Ziprasidone HCl 20 Mg Capsule, 20 MG PO BID, (Reported) Patient Home Medication List Home Medication List Reviewed: Yes Review of Systems Review of Systems Constitutional: No chills, No fever; malaise Respiratory: no symptoms reported Cardiovascular: no symptoms reported Gastrointestinal: no symptoms reported Genitourinary: no symptoms reported Musculoskeletal: no symptoms reported Skin: see HPI Psychiatric/Neurological: No Symptoms Reported Hematologic/Lymphatic: See HPI Past Mahuzej-Lwgizd-Gzxaga Hx Past Med/Social Hx: Reviewed Nursing Past Med/Soc Hx Patient Social History Drug of Choice: opioids Type Used: Cigars Former Smoker, Quit: May 23, 2018 2nd Hand Smoke Exposure: Yes Recent Hopitalizations: Yes ([facility] - stroke May 2018 ) Immunizations Up To Date Tetanus Booster (TDap): Less than 5yrs Date of Pneumonia Vaccine: Jun 09, 2008 Date of Influenza Vaccine: Jun 28, 2017 Seasonal Allergies Seasonal Allergies: Yes Past Medical History Surgeries: Yes (Left breast cyst, x2, ORIF Right ankle) Section, Gallbladder, Orthopedic, Tubal Ligation Respiratory: Yes (CPAP not used after last sleep study) Sleep Apnea, COPD Cardiac: Yes Chronic Edema/Swelling, High Cholesterol, Hypertension Neurological: Yes (HYPOGLYCEMIC ENCEPHALOPATHY) Neuropathy, Stroke, Traumatic Brain Injury 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 Disorders: No 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 Sexually Transmitted Disease: No HIV/AIDS: No Genitourinary: Yes Renal Failure, UTI-Chronic Gastrointestinal: Yes Gastroesophageal Reflux, Pancreatitis Musculoskeletal: Yes (right ankle fx with steel plate) Degenerate Disk Disease, Chronic Back Pain Endocrine: Yes Diabetes, Insulin dep HEENT: No Cancer: No Psychosocial: Yes (DGTR STATES PT HAS ADDICTIVE PERSONALITY) Sleep Difficulties, Anxiety, Depression Integumentary: Yes (FREQUENT CELLULITIS--LEGS) Recent Skin Changes Blood Disorders: No Adverse Reaction/Blood Tranf: No Family Medical History Completed stroke 19 FATHER Congenital heart disease 19 FATHER Diabetes mellitus 19 FATHER Myocardial infarction 19 FATHER Psychosocial problem 19 FATHER (depression) 19 MOTHER (depression) Respiratory disorder 19 MOTHER (copd) No Pertinent Family Hx, Diabetes Physical Exam Vital Signs Capillary Refill : Height, Weight, BMI Height: 5'2.00" Weight: 170lbs. 2.0oz. 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 Norm as Tested Skin: Normal Color, Warm/Dry Focused Exam Lactate Level 04/09/20 08:10: Lactic Acid Level 1.42 Lactic Acid Level Laboratory Tests Test 04/09/20 08:10 Lactic Acid Level 1.42 MMOL/L (0.50-2.00) Procedures/Interventions Date of ETT Placement: Jun 03, 2018 Time of ETT Placement: 1310 Progress/Results/Core Measures Suspected Sepsis SIRS Temperature: Pulse: Respiratory Rate: Laboratory Tests 04/09/20 08:10: White Blood Count 18.3H Blood Pressure / Mean: 04/09/20 08:10: Lactic Acid Level 1.42 Laboratory Tests 04/09/20 08:10: Creatinine 2.37H, Platelet Count 234, Total Bilirubin 0.7 Results/Orders Lab Results Laboratory Tests Test 04/09/20 08:10 04/09/20 08:30 04/09/20 08:35 Range/Units White Blood Count 18.3 H 4.3-11.0 10^3/uL Red Blood Count 3.58 L 3.80-5.11 10^6/uL Hemoglobin 10.6 L 11.5-16.0 g/dL Hematocrit 32 L 35-52 % Mean Corpuscular Volume 90 80-99 fL Mean Corpuscular Hemoglobin 30 25-34 pg Mean Corpuscular Hemoglobin Concent 33 32-36 g/dL Red Cell Distribution Width 12.7 10.0-14.5 % Platelet Count 234 130-400 10^3/uL Mean Platelet Volume 11.0 9.0-12.2 fL Immature Granulocyte % (Auto) 1 % Neutrophils (%) (Auto) 94 H 42-75 % Lymphocytes (%) (Auto) 1 L 12-44 % Monocytes (%) (Auto) 3 0-12 % Eosinophils (%) (Auto) 0 0-10 % Basophils (%) (Auto) 0 0-10 % Neutrophils # (Auto) 17.3 H 1.8-7.8 10^3/uL Lymphocytes # (Auto) 0.2 L 1.0-4.0 10^3/uL Monocytes # (Auto) 0.6 0.0-1.0 10^3/uL Eosinophils # (Auto) 0.0 0.0-0.3 10^3/uL Basophils # (Auto) 0.0 0.0-0.1 10^3/uL Immature Granulocyte # (Auto) 0.1 0.0-0.1 10^3/uL Neutrophils % (Manual) 74 % Lymphocytes % (Manual) 2 % Monocytes % (Manual) 4 % Band Neutrophils 20 % Toxic Granulation 1+ Hypochromasia SLIGHT Anisocytosis SLIGHT Sodium Level 132 L 135-145 MMOL/L Potassium Level 3.8 3.6-5.0 MMOL/L Chloride Level 100 98-107 MMOL/L Carbon Dioxide Level 20 L 21-32 MMOL/L Anion Gap 12 5-14 MMOL/L Blood Urea Nitrogen 28 H 7-18 MG/DL Creatinine 2.37 H 0.60-1.30 MG/DL Estimat Glomerular Filtration Rate 22 BUN/Creatinine Ratio 12 Glucose Level 104 70-105 MG/DL Lactic Acid Level 1.42 0.50-2.00 MMOL/L Calcium Level 8.4 L 8.5-10.1 MG/DL Corrected Calcium 9.2 8.5-10.1 MG/DL Total Bilirubin 0.7 0.1-1.0 MG/DL Aspartate Amino Transf (AST/SGOT) 226 H 5-34 U/L Alanine Aminotransferase (ALT/SGPT) 128 H 0-55 U/L Alkaline Phosphatase 242 H 40-136 U/L Troponin I < 0.028 <0.028 NG/ML C-Reactive Protein High Sensitivity 11.57 H 0.00-0.50 MG/DL Total Protein 6.6 6.4-8.2 GM/DL Albumin 3.0 L 3.2-4.5 GM/DL Coronavirus 2019 ([facility]) Negative Negative Urine Color YELLOW Urine Clarity CLEAR Urine pH 8.5 5-9 Urine Specific [place] 1.015 L 1.016-1.022 Urine Protein 2+ H NEGATIVE Urine Glucose (UA) NEGATIVE NEGATIVE Urine Ketones NEGATIVE NEGATIVE Urine Nitrite NEGATIVE NEGATIVE Urine Bilirubin NEGATIVE NEGATIVE Urine Urobilinogen 0.2 < = 1.0 MG/DL Urine Leukocyte Esterase 3+ H NEGATIVE Urine RBC (Auto) NEGATIVE NEGATIVE Urine RBC NONE /HPF Urine WBC 25-50 H /HPF Urine Squamous Epithelial Cells 0-2 /HPF Urine Crystals NONE /LPF Urine Bacteria LARGE H /HPF Urine Casts NONE /LPF Urine Mucus NEGATIVE /LPF Urine Culture Indicated YES My Orders Orders - FERNANDEZ,FLORINDA L DO Cbc With Automated Diff (04/09/20 08:02) Comprehensive Metabolic Panel (04/09/20 08:02) Hs C Reactive Protein (04/09/20 08:02) Troponin I (04/09/20 08:02) Ua Culture If Indicated (04/09/20 08:02) Ekg Tracing (04/09/20 08:02) Chest 1 View, Ap/Pa Only (04/09/20 08:02) Covid 19 Inhouse Test (04/09/20 08:02) Lactic Acid Analyzer (04/09/20 08:12) Ns Iv 1000 Ml (Sodium Chloride 0.9%) (04/09/20 08:12) Manual Differential (04/09/20 08:10) Naloxone Injection (Narcan Injection) (04/09/20 08:45) Ed Iv/Invasive Line Start (04/09/20 08:33) Ns Iv 1000 Ml (Sodium Chloride 0.9%) (04/09/20 08:33) Naloxone Injection (Narcan Injection) (04/09/20 08:32) Cefepime Injection (Maxipime Injection) (04/09/20 08:45) Urine Culture (04/09/20 08:35) Drug Screen Stat (Urine) (04/09/20 09:08) Influenza A And B Antigens (04/09/20 09:11) Coronavirus Sars-Cov-2 So 2019 (04/09/20 09:11) Medications Given in ED Current Medications Medications Dose Ordered Sig/Amy Route Start Time Stop Time Status Last Admin Dose Admin Cefepime HCl 1000 mg/Sterile Water 10 ml @ 200 mls/hr ONCE ONCE IV 04/09/20 08:45 04/09/20 08:47 DC 04/09/20 08:39 200 MLS/HR Naloxone HCl 2 mg ONCE ONCE IV 04/09/20 08:45 04/09/20 08:46 DC 04/09/20 08:36 2 MG Sodium Chloride 1,000 ml @ 0 mls/hr Q0M PRN IV 04/09/20 08:33 04/09/20 08:30 1,000 MLS/HR Vital Signs/I&O Capillary Refill : ECG Initial ECG Impression Date: Apr 09, 2020 Initial ECG Impression Time: 09:20 Initial ECG Rhythm: Normal Sinus Initial ECG Intervals: Normal Initial ECG Impression: Nonspecific Changes Comment NSR, no acute changes, Diagnostic Imaging Diagonstic Imaging: Xray Plain Films/CT/US/NM/MRI: chest Comments [facility]. [place], [place] NAME: CHEPE CASTANEDA Villas at [place] [facility] REC#: [id number] PT STATUS: REG ER : 1965 PHYSICIAN: FLORINDA FERNANDEZ DO ADMIT DATE: 04/09/20/ER Draft Date of Exam:04/09/20 CHEST 1 VIEW, AP/PA ONLY INDICATION: Malaise. EXAMINATION: Chest 04/09/2020. COMPARISON: 05/10/2019 FINDINGS: There is a right chest port stable. Heart is unchanged, pulmonary vasculature normal. Lungs and pleural spaces clear. IMPRESSION: 1. No acute cardiopulmonary process. Dictated on workstation # [id number] Dict: 04/09/2047 Trans: 04/09/2048 CV [id number] Interpreted by: LEESA ESPINAL MD Electronically signed by: Departure Communication (Admissions) Time/Spoke to Admitting Phy: 09:09 okay to admit Impression Primary Impression: UTI (urinary tract infection) Qualified Codes: N30.00 - Acute cystitis without hematuria Disposition: ADMITTED INPATIENT Condition: Stable Admissions Decision to Admit Reason: Admit from ER (General) Decision to Admit/Date: Apr 09, 2020 Time/Decision to Admit Time: 09:09 Departure-Patient Inst. Referrals: MIRELA LYLE DO (PCP/Family) Primary Care Physician FLORINDA FERNANDEZ DO Apr 09, 2020 08:11
[2020-04-09] MEDS ORDERED: NS IV 1000 ML 1,000 ML ONE (08:12)
[2020-04-09 08:26] LABS: BASOPHILS % (AUTO) 0 % (0-10); EOSINOPHILS % (AUTO) 0 % (0-10); HEMATOCRIT 32 % (35-52); HEMOGLOBIN 10.6 g/dL (11.5-16.0); LYMPHOCYTES # (AUTO) 0.2 10^3/uL (1.0-4.0); LYMPHOCYTES % (AUTO) 1 % (12-44); MEAN CORPUSCULAR HEMOGLOBIN 30 pg (25-34); MEAN CORPUSCULAR HGB CONC 33 g/dL (32-36); MEAN CORPUSCULAR VOLUME 90 fL (80-99); MONOCYTES # (AUTO) 0.6 10^3/uL (0.0-1.0); MONOCYTES % (AUTO) 3 % (0-12); NEUTROPHILS # (AUTO) 17.3 10^3/uL (1.8-7.8); NEUTROPHILS % (AUTO) 94 % (42-75); PLATELET COUNT 234 10^3/uL (130-400); WHITE BLOOD COUNT 18.3 10^3/uL (4.3-11.0)
[2020-04-09] MEDS ORDERED: NALOXONE 2 MG/2 ML (NARCAN) SYR ONE (08:32)
[2020-04-09] MEDS ORDERED: NS IV 1000 ML 1,000 ML IV PRN (08:33)
[2020-04-09 08:35] LABS: CHLORIDE 100 MMOL/L (98-107); POTASSIUM 3.8 MMOL/L (3.6-5.0); SODIUM 132 MMOL/L (135-145)
[2020-04-09 08:36] LABS: CALCIUM 8.4 MG/DL (8.5-10.1)
[2020-04-09 08:38] LABS: GLUCOSE 104 MG/DL (70-105); TOTAL PROTEIN 6.6 GM/DL (6.4-8.2)
[2020-04-09 08:39] LABS: BILIRUBIN,TOTAL 0.7 MG/DL (0.1-1.0); CARBON DIOXIDE 20 MMOL/L (21-32)
[2020-04-09 08:40] LABS: BAND NEUTROPHILS 20 %; LYMPHOCYTES % (MANUAL) 2 %; MONOCYTES % (MANUAL) 4 %; NEUTROPHILS % (MANUAL) 74 %
[2020-04-09 08:41] LABS: ALKALINE PHOSPHATASE 242 U/L (40-136); ANISOCYTOSIS SLIGHT; CREATININE SERUM 2.37 MG/DL (0.60-1.30); GFR ESTIMATED 22; HYPOCHROMASIA SLIGHT; TOXIC GRANULATION/VACUOLAZATIO 1+
[2020-04-09 08:43] LABS: BILIRUBIN,URINE NEGATIVE (NEGATIVE); CLARITY,URINE CLEAR; COLOR,URINE YELLOW; GLUCOSE, URINE (UA) NEGATIVE (NEGATIVE); KETONES,URINE NEGATIVE (NEGATIVE); LEUKOCYTE ESTERASE ,URINE 3+ (NEGATIVE); NITRITE,URINE NEGATIVE (NEGATIVE); PH,URINE 8.5 (5-9); PROTEIN,URINE 2+ (NEGATIVE)
[2020-04-09 08:43] LABS: BUN/CREATININE RATIO 12
[2020-04-09 08:44] LABS: ALANINE AMINOTRANSFERASE 128 U/L (0-55)
[2020-04-09] MEDS ORDERED: NALOXONE 2 MG/2 ML (NARCAN) SYR IV ONE (08:45)
[2020-04-09] MEDS ORDERED: CEFEPIME INJECTION 1,000 MG in WATER (STERILE) FOR INJECTION 10 ML IV ONE (08:45)
[2020-04-09 08:47] LABS: BACTERIA,URINE LARGE /HPF; SQUAMOUS EPITHELIAL CELL,UR 0-2 /HPF; WBC,URINE 25-50 /HPF
--- NOTE | 2020-04-09 08:48 | Diagnostic Imaging Report ---
INDICATION: Malaise. EXAMINATION: Chest 04/09/2020. COMPARISON: 05/10/2019 FINDINGS: There is a right chest port stable. Heart is unchanged, pulmonary vasculature normal. Lungs and pleural spaces clear. IMPRESSION: 1. No acute cardiopulmonary process. Dictated by: Dictated on workstation # [id number]
--- NOTE | 2020-04-09 09:20 | NUR ---
DR VELA HERE TO SEE PT
[2020-04-09 09:25] LABS: AMPHETAMINE SCREEN, URINE NEGATIVE (NEGATIVE); BARBITURATE SCREEN URINE NEGATIVE (NEGATIVE); BENZODIAZEPINES SCREEN URINE NEGATIVE (NEGATIVE); CANNABINOID SCREEN, URINE NEGATIVE (NEGATIVE); COCAINE SCREEN URINE NEGATIVE (NEGATIVE); METHADONE STAT NEGATIVE (NEGATIVE); METHAMPHETAMINE SCREEN URINE S NEGATIVE (NEGATIVE); OPIATE SCREEN URINE NEGATIVE (NEGATIVE); OXYCODONE STAT NEGATIVE (NEGATIVE); PROPOXYPHENE STAT NEGATIVE (NEGATIVE); TRICYCLIC ANTIDEPRESSANTS SCRE NEGATIVE (NEGATIVE)
--- NOTE | 2020-04-09 10:18 | History & Physical ---
History of Present Illness History of Present Illness Reason for visit/HPI PT IS A 54 Y/O FEMALE WHO IS A CLINIC PATIENT OF DR. 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 THE PATIENT PRESENTED TO THE EMERGENCY DEPARTMENT VIA AMBULANCE AFTER FAMILY FOUND HER AT HOME UNRESPONSIVE. HER DTR, KULWANT REPORTS THAT LAST NIGHT SHE GAVE HER MOM HER NIGHT-TIME MEDICATIONS AND ABOUT AND HOUR LATER HER MOM WAS COMPLAINING OF ABDOMINAL PAIN AND NAUSEA AND SHE GAVE HER MOM A ZOFRAN, THEN HER MOM WENT TO BED. SHE REPORTS THAT THIS MORNING HER SISTER FOUND HER MOM IN HER BED UNRESPONSIVE AND CALLED THE AMBULANCE. UPON EVALUATION IN THE ER, SHE APPEARED TO BE SEPTIC, BUT WAS FOUND TO NOT HAVE AN ELEVATED LACTIC ACID LEVEL, THE ER PHYSICIAN GAVE HER A DOSE OF NARCAN TO WHICH SHE RESPONDED RAPIDLY AND REGAINED NORMAL CONSCIOUSNESS. Date of Admission Apr 09, 2020 at 09:05 Date Seen by a Provider: Apr 09, 2020 Time Seen by a Provider: 09:30 I consulted on this patient on Attending Physician Mirela Haider DO Admitting Physician Meka Raphael MD Consult Allergies and Home Medications Allergies Coded Allergies: codeine (Verified Allergy, Mild, ITCHING, Pt has received Lortab in the past, 07/02/18) Sulfa (Sulfonamide Antibiotics) (Verified Allergy, Unknown, HIVES, 02/07/18) Home Medications Acetaminophen 500 Mg Tablet, 500 MG PO TID PRN for PAIN-MILD, (Reported) Albuterol Sulfate 18 Gm Hfa.aer.ad, 2 PUFF INH Q6H PRN for SHORTNESS OF BREATH, (Reported) Bumetanide 1 Mg Tablet, 1 MG PO 0800,1200, (Reported) Carvedilol 12.5 Mg Tablet, 25 MG PO BID Prescribed by: MIRELA HAIDER on 09/18/18 1037 Doxazosin Mesylate 2 Mg Tablet, 2 MG PO HS, (Reported) Ergocalciferol (Vitamin D2) 50,000 Unit Capsule, 50,000 UNIT PO WEEK, (Reported) Insulin Aspart 300 Units/3 Ml Solution, SC QID, (Reported) 181-200 = 4 UNITS 201-250 = 6 UNITS 251-300 = 8 UNITS 301-350 = 10 UNITS 351- 400 = 12 UNITS >400 CONTACT PCP Ipratropium/Albuterol Sulfate 3 Ml Ampul.neb, 3 ML IH Q4H PRN for SHORTNESS OF BREATH, (Reported) Meclizine HCl 25 Mg Tab.chew, 25 MG PO TID PRN for DIZZINESS Prescribed by: BRITTNEY CARTER on 02/18/192037 Sodium Bicarbonate 650 Mg Tablet, 650 MG PO BID, (Reported) Tramadol HCl 50 Mg Tablet, 25 MG PO TID PRN for PAIN-MODERATE, (Reported) TAKES 1/2 (50MG) TABLET Ziprasidone HCl 20 Mg Capsule, 20 MG PO BID, (Reported) Patient Home Medication List Home Medication List Reviewed: Yes (WAITING ON FINAL PHARMACY REVIEW ) Past Hdpyeuy-Ssbfdc-Remvxm Hx Past Med/Social Hx: Reviewed Nursing Past Med/Soc Hx Patient Social History Marrital Status: Living Status: LIVES WITH DTR IN HER HOME Alcohol Use: Denies Use Recreational Drug Use: No (HX) Drug of Choice: opioids Smoking Status: Current Everyday Smoker Former Smoker, Quit: May 23, 2018 Type Used: Cigars 2nd Hand Smoke Exposure: Yes Physical Abuse Screen: No Sexual Abuse: No Recent Foreign Travel: No Contact w/other who traveled: No Recent Hopitalizations: No ([facility] - stroke May 2018 ) Recent Infectious Disease Expo: No Immunizations Up To Date Tetanus Booster (TDap): Less than 5yrs Date of Pneumonia Vaccine: Jun 09, 2008 Date of Influenza Vaccine: Jun 28, 2017 Seasonal Allergies Seasonal Allergies: Yes Past Medical History Surgeries: Section, Gallbladder, Orthopedic, Tubal Ligation Respiratory: COPD Cardiac: Chronic Edema/Swelling, High Cholesterol, Hypertension Neurological: Neuropathy, Stroke, Traumatic Brain Injury : No 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: No Sexually Transmitted Disease: No HIV/AIDS: No 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 Disorders: Denies Tubal Ligation Genitourinary: Renal Failure, UTI-Chronic Gastrointestinal: Gastroesophageal Reflux, Pancreatitis Musculoskeletal: Degenerate Disk Disease, Chronic Back Pain Endocrine: Diabetes, Insulin dep Loss of Vision: Denies Hearing Impairment: Denies Psychosocial: Sleep Difficulties, Anxiety, Depression Skin/Integumentary: Recent Skin Changes History of Blood Disorders: No Adverse Reaction to Blood Alvarado: No Family History Reviewed Nursing Family Hx Completed stroke 19 FATHER Congenital heart disease 19 FATHER Diabetes mellitus 19 FATHER Myocardial infarction 19 FATHER Psychosocial problem 19 FATHER (depression) 19 MOTHER (depression) Respiratory disorder 19 MOTHER (copd) Heart Disease, COPD, Diabetes, Psychiatric Problems, Stroke Review of Systems Constitutional: No chills, No fever, No malaise; weakness EENTM: No hoarseness, No throat pain Respiratory: No cough, No dyspnea on exertion, No short of breath Cardiovascular: No chest pain, No edema Gastrointestinal: abdominal pain; No constipation, No diarrhea; nausea; No vomiting Genitourinary: No decreased output, No dysuria, No hematuria Musculoskeletal: back pain Skin: no symptoms reported Psychiatric/Neurological: Anxiety, Pre-Existing Deficit, Weakness All Other Systems Reviewed Negative Unless Noted: Yes Physical Exam Vital Signs Vital Signs - First Documented 04/09/20 07:55 Temp 36.1 Pulse 84 Resp 10 B/P (MAP) 104/45 (64) Pulse Ox 97 Capillary Refill : Less Than 3 Seconds Height, Weight, BMI Height: 5'2.00" Weight: 170lbs. 2.0oz. [id number]; 27.00 BMI Method:Stated General Appearance: No Apparent Distress, WD/WN Eyes: Bilateral Eye Normal Inspection, Bilateral Eye PERRL, Bilateral Eye EOMI HEENT: PERRL/EOMI, TMs Normal, Normal ENT Inspection, Pharynx Normal, Other (POOR DENTITION, BROKEN, MISSING TEETH, DECAYING TEETH) Neck: Full Range of Motion, Normal Inspection, Non Tender, Supple, Carotid Bruit Respiratory: Chest Non Tender, Lungs Clear, Normal Breath Sounds, No Respiratory Distress Cardiovascular: Regular Rate, Rhythm, Normal Peripheral Pulses Gastrointestinal: Normal Bowel Sounds, No Organomegaly, No Pulsatile Mass, Non Tender, Soft Rectal: Deferred Back: Normal Inspection Extremity: Normal Capillary Refill, Normal Inspection, Normal Range of Motion, Non Tender, No Calf Tenderness, No Pedal Edema Neurologic/Psychiatric: Alert, Normal Mood/Affect, Other (ORIENTED TO PERSON, PLACE, NOT TIME, STILTED SPEECH PATTERN, MONOTONE VOICE) Skin: Normal Color, Warm/Dry Lymphatic: No Adenopathy Assessment/Plan Assessment and Plan URINARY TRACT INFECTION HYPOTENSIVE SHOCK ELEVATED LIVER ENZYMES LEUKOCYTOSIS ELEVATED CRP NAUSEA MENTAL STATUS CHANGES STAGE 4 CHRONIC RENAL FAILURE HYPONATREMIA UNCONTROLLED DIABETES MELLITUS CHRONIC BACK PAIN HX OF ENCEPHALOPATHY WITH CHRONIC DEBILITY URINARY TRACT INFECTION - PT HAS HX OF UTI'S - WILL SEND URINE FOR CULTURE - IV FLUIDS, MONITOR OUTPUT - IV CEFEPIME BID HYPOTENSIVE SHOCK - IMPROVED AFTER IV FLUIDS IN THE ER, MONITOR BP CLOSELY, SUPPORTIVE CARE AND MONITOR LABS. ELEVATED LIVER ENZYMES - DUE TO HYPOTENSIVE SHOCK - MONITOR REPEAT LABS AROUND 1500 TODAY - IF THE ENZYMES HAVE ACUTELY WORSENED, WILL THEN ORDER A CT SCAN OF ABDOMEN AND PELVIS WITHOUT CONTRAST DUE TO HER POOR RENAL FUNCTION. LEUKOCYTOSIS - DUE TO UTI - MONITOR LABS ELEVATED CRP - DUE TO INFECTION AND SHOCK, MONITOR CRP TOMORROW NAUSEA - WILL ORDER IV ZOFRAN MENTAL STATUS CHANGES - IMPROVED, MONITOR STAGE 4 CHRONIC RENAL FAILURE - PT HAS CHRONIC RENAL FAILURE DUE TO DIABETES MELLITUS AND HER HX OF POOR PERSONAL CONTROL OF HER ILLNESS, PT SEES DR. KATHE LU FOR HER HOSPITAL INTERNSHIP, WILL RENALLY ADJUST HER MEDICATIONS. HYPONATREMIA - MONITOR LABS, CONTINUE WITH FLUIDS UNCONTROLLED DIABETES MELLITUS - SLIDING SCALE B INSULIN REGIMEN - WAITING ON MEDICATION RECONCILIATION FOR RESUMPTION OF HOME REGIMEN. - CHECK HGBA1C - FSBS WITH MEALS AND HS CHRONIC BACK PAIN - HOLD TRAMADOL DUE TO HER REACTION FROM LAST NIGHT HX OF ENCEPHALOPATHY WITH CHRONIC DEBILITY - SUPPORTIVE CARE ONLY AT THIS TIME DVT PROPHYLAXIS WITH LOVENOX, PHARMACY TO DOSE GI PROPHYLASIX WITH PEPCID AND WILL DOSE PROBIOTICS SINCE PT IS ON IV ANTIBIOTICS. Admission Diagnosis URINARY TRACT INFECTION HYPOTENSIVE SHOCK ELEVATED LIVER ENZYMES LEUKOCYTOSIS ELEVATED CRP NAUSEA MENTAL STATUS CHANGES STAGE 4 CHRONIC RENAL FAILURE HYPONATREMIA UNCONTROLLED DIABETES MELLITUS CHRONIC BACK PAIN HX OF ENCEPHALOPATHY WITH CHRONIC DEBILITY Admission Status: Inpatient Order (span 2 midnights) Reason for Inpatient Admission: INPATIENT ADMISSION FOR URINARY TRACT INFECTION, ELEVATED TRANSAMINASE DUE TO SHOCK, HYPOTENSIVE SHOCK, DIABETES, MENTAL STATUS CHANGES, WILL REQUIRE AT LEAST 48 - 72 HOURS FOR STABILIZATION MEKA RAPHAEL MD Apr 09, 2020 10:17
[2020-04-09 10:26] LABS: TOTAL PROTEIN 6.5 GM/DL (6.4-8.2)
[2020-04-09 10:27] LABS: BILIRUBIN,TOTAL 0.7 MG/DL (0.1-1.0)
[2020-04-09 10:31] LABS: BILIRUBIN,DIRECT 0.3 MG/DL (0.0-0.3); BILIRUBIN,INDIRECT 0.4 MG/DL
[2020-04-09] MEDS ORDERED: ONDANSETRON 4 MG (ZOFRAN) ORAL DISSOLVE TAB PO PRN (10:45)
[2020-04-09] MEDS: inSUlin ASPART (NovoLOG) 1 UNIT/0.01 ML (CHARGE PER UNIT) SC SCH ×3 (10:54→20:20)
[2020-04-09 11:13] VITALS: BP 99/56
--- NOTE | 2020-04-09 11:15 | NUR ---
CHEPE CASTANEDA admitted to room 422-1, with an admitting diagnosis of UTI, on 04/09/20 from ED via [facility], accompanied by STAFF. CHEPE CASTANEDA introduced to surroundings, call light, bed controls, phone, TV, temperature control, lights, meal times, smoking policy, visitor policy, side rail policy, bathrooms and showers. Patient Rights given to patient in the handbook. CHEPE CASTANEDA verbalizes understanding that [facility] is not responsible for the loss or damage to any personal effects or valuables that are kept in the patients posession during their hospitalization. The following Patient Care Plans were discussed with the PT: Discharge Planning, PAIN AND UTI. CHEPE CASTANEDA verbalizes understanding of Interdisciplinary Patient Education. Patient and/or family were informed about the Rapid Response Team and its purpose.
[2020-04-09] MEDS ORDERED: LACTATED RINGERS 1,000 ML IV ONE (11:43)
[2020-04-09] MEDS: FAMOTIDINE 20 MG (PEPCID) TABLET PO SCH (11:58)
[2020-04-09] MEDS: ENOXAPARIN 30 MG/0.3 ML (LOVENOX) SYR SC SCH (11:59)
[2020-04-09] MEDS: LACTATED RINGERS 1,000 ML IV SCH (12:00)
[2020-04-09 14:12] VITALS: BP 99/56
[2020-04-09] MEDS: LACTOBACILLUS ACIDOPHILUS (PROBIOTIC) CAPSULE PO SCH ×2 (14:31→17:20)
[2020-04-09] MEDS ORDERED: FLU QUADRIvalent (3YOA+) 60 mcg/0.5 ml 2020-21 (AFLURIA) IM ONE (16:30)
[2020-04-09 16:56] VITALS: BP 99/58
[2020-04-09] MEDS: CEFEPIME INJECTION 1,000 MG in WATER (STERILE) FOR INJECTION 10 ML IV SCH (19:15)
[2020-04-09] MEDS ORDERED: CEFEPIME INJECTION 2,000 MG in WATER (STERILE) FOR INJECTION 20 ML IV SCH (20:00)
[2020-04-09 20:13] VITALS: BP 89/54
[2020-04-09] MEDS ORDERED: NS IV 500 ML 500 ML ONE (20:23)
[2020-04-09] MEDS ORDERED: NS IV 500 ML 500 ML IV ONE ×2 (20:30)
[2020-04-10] VITALS (7 sets, daily range): BP systolic 98–131; BP diastolic 53–71
[2020-04-10] MEDS: LACTATED RINGERS 1,000 ML IV SCH ×3 (00:10→17:04)
[2020-04-10 05:34] LABS: HEMOGLOBIN 8.2 g/dL (11.5-16.0); MEAN PLATELET VOLUME 10.8 fL (9.0-12.2); WHITE BLOOD COUNT 6.8 10^3/uL (4.3-11.0)
[2020-04-10 05:46] LABS: ALBUMIN 2.5 GM/DL (3.2-4.5); POTASSIUM 4.5 MMOL/L (3.6-5.0)
[2020-04-10 05:48] LABS: TOTAL PROTEIN 5.4 GM/DL (6.4-8.2)
[2020-04-10 05:50] LABS: BILIRUBIN,TOTAL 0.7 MG/DL (0.1-1.0)
[2020-04-10 05:52] LABS: CREATININE SERUM 1.95 MG/DL (0.60-1.30)
[2020-04-10] MEDS: inSUlin ASPART (NovoLOG) 1 UNIT/0.01 ML (CHARGE PER UNIT) SC SCH ×4 (05:54→19:58)
[2020-04-10] MEDS: LACTOBACILLUS ACIDOPHILUS (PROBIOTIC) CAPSULE PO SCH ×3 (08:16→17:05)
[2020-04-10] MEDS: FAMOTIDINE 20 MG (PEPCID) TABLET PO SCH (08:16)
[2020-04-10] MEDS: CEFEPIME INJECTION 1,000 MG in WATER (STERILE) FOR INJECTION 10 ML IV SCH ×2 (08:16→19:58)
[2020-04-10] MEDS: ENOXAPARIN 30 MG/0.3 ML (LOVENOX) SYR SC SCH (11:36)
--- NOTE | 2020-04-10 12:56 | Progress Note ---
Subjective Date Seen by a Provider: Apr 10, 2020 Time Seen by a Provider: 12:53 Subjective/Events-last exam Fwup UTI with SIRS, hypotensive shock, uncontrolled diabetes mellitus, chronic stage 4 renal failure. Sitting up in bed. Feeling better. Asking for tramadol. Focused Exam Lactate Level 04/09/20 08:10: Lactic Acid Level 1.42 Objective Exam Vital Signs Date Time Temp Pulse Resp B/P (MAP) Pulse Ox O2 Delivery O2 Flow Rate FiO2 04/10/20 08:00 97 Room Air 04/10/20 08:00 36.3 93 18 116/63 (80) 94 Room Air 04/10/20 05:26 36.4 68 18 98/57 (71) 97 Room Air 04/10/20 00:00 36.2 80 18 101/57 (72) 98 Room Air 04/09/20 20:13 36.4 67 16 89/54 (66) 97 Room Air 04/09/20 19:15 Room Air 04/09/20 16:56 36.8 69 18 99/58 (72) 97 Room Air 04/09/20 16:08 97 Room Air 04/09/20 14:12 36.2 83 18 99/56 97 Room Air I & O 04/10/20 07:00 Intake Total 2710 ml Output Total 1250 ml Balance 1460 ml Capillary Refill : Less Than 3 SecondsLess Than 3 Seconds General Appearance: No Apparent Distress Respiratory: Lungs Clear Cardiovascular: Regular Rate, Rhythm Gastrointestinal: normal bowel sounds, non tender, soft Extremity: Non Tender, No Calf Tenderness, No Pedal Edema Neurologic/Psychiatric: Alert Skin: Warm/Dry Results Lab Laboratory Tests 04/09/20 16:56: Glucometer 186H 04/09/20 20:15: Glucometer 136H 04/10/20 05:25: White Blood Count 6.8, Red Blood Count 2.76L, Hemoglobin 8.2#L, Hematocrit 25L, Mean Corpuscular Volume 91, Mean Corpuscular Hemoglobin 30, Mean Corpuscular Hemoglobin Concent 33, Red Cell Distribution Width 12.9, Platelet Count 157, Mean Platelet Volume 10.8, Sodium Level 132L, Potassium Level 4.5, Chloride Level 103, Carbon Dioxide Level 19L, Anion Gap 10, Blood Urea Nitrogen 30H, Creatinine 1.95H, Estimat Glomerular Filtration Rate 27, BUN/Creatinine Ratio 15, Glucose Level 103, Calcium Level 8.0L, Corrected Calcium 9.2, Total Bilirubin 0.7, Aspartate Amino Transf (AST/SGOT) 80H, Alanine Aminotransferase (ALT/SGPT) 72H, Alkaline Phosphatase 152H, Total Protein 5.4L, Albumin 2.5L 04/10/20 05:31: Glucometer 113H 04/10/20 11:38: Glucometer 227H Microbiology 04/09/20 Urine Culture - Preliminary, Resulted Probable Klebsiella/Enterobact 04/09/20 Influenza Types A,B Antigen (DUNIA) - Final, Complete Assessment/Plan Assessment/Plan Assess & Plan/Chief Complaint 1. UTI with SIRS--on Cefepime 2. Hypotensive Shock--improving with fluids but still with low BP 3. Uncontrolled Diabetes mellitus--insulin requiring--on SSI 4. Acute on Chronic Renal Failure--Cr improving with hydration Clinical Quality Measures DVT/VTE Risk/Contraindication: Risk Factor Score Per Nursin RFS Level Per Nursing on Admit: 4+=Very High MIRELA LYLE DO Apr 10, 2020 12:56
[2020-04-10] MEDS: ACETAMINOPHEN 500 MG TAB (TYLENOL) PO PRN (13:18)
[2020-04-10] MEDS ORDERED: DULO60CA59 PO (14:02)
[2020-04-10] MEDS ORDERED: PREG50CA65 PO (14:02)
[2020-04-10] MEDS ORDERED: MELA1TAB15 PO (14:02)
[2020-04-10] MEDS ORDERED: HYDR-3923 PO (14:02)
[2020-04-10] MEDS ORDERED: INSU100I29 SQ (14:02)
[2020-04-10] MEDS ORDERED: INSU100I23 SQ (14:02)
[2020-04-10] MEDS ORDERED: TRAM50TA3 PO (14:02)
[2020-04-10] MEDS ORDERED: CALC0.253 PO (14:02)
[2020-04-10] MEDS ORDERED: ONDA-105 PO (14:02)
--- NOTE | 2020-04-10 14:03 | NUR ---
I SPOKE WITH THE PATIENT'S DAUGHTERS, WENT THROUGH AND EXTERNAL MED HISTORY AND CALLED DR. LYLE'S OFFICE TO COMPLETE THIS MED REC. OTC: MELATONIN TYLENOL
[2020-04-11 03:26] VITALS: BP 115/68
[2020-04-11] MEDS: LACTATED RINGERS 1,000 ML IV SCH ×2 (04:26→11:39)
[2020-04-11 04:48] LABS: HEMOGLOBIN 7.7 g/dL (11.5-16.0); MEAN PLATELET VOLUME 11.6 fL (9.0-12.2); WHITE BLOOD COUNT 4.6 10^3/uL (4.3-11.0)
[2020-04-11 05:02] LABS: ALBUMIN 2.5 GM/DL (3.2-4.5); POTASSIUM 3.9 MMOL/L (3.6-5.0)
[2020-04-11 05:03] LABS: CALCIUM 8.2 MG/DL (8.5-10.1)
[2020-04-11 05:05] LABS: TOTAL PROTEIN 5.3 GM/DL (6.4-8.2)
[2020-04-11 05:06] LABS: BILIRUBIN,TOTAL 0.3 MG/DL (0.1-1.0)
[2020-04-11 05:08] LABS: CREATININE SERUM 1.55 MG/DL (0.60-1.30)
[2020-04-11] MEDS: inSUlin ASPART (NovoLOG) 1 UNIT/0.01 ML (CHARGE PER UNIT) SC SCH ×4 (05:28→21:41)
[2020-04-11 08:08] VITALS: BP 141/71
[2020-04-11] MEDS: LACTOBACILLUS ACIDOPHILUS (PROBIOTIC) CAPSULE PO SCH ×3 (08:48→17:16)
[2020-04-11] MEDS: CEFEPIME INJECTION 1,000 MG in WATER (STERILE) FOR INJECTION 10 ML IV SCH ×3 (08:48→23:59)
[2020-04-11] MEDS: FAMOTIDINE 20 MG (PEPCID) TABLET PO SCH (08:52)
[2020-04-11] MEDS: ENOXAPARIN 40 MG/0.4 ML (LOVENOX) SYR SC SCH (11:39)
[2020-04-11 12:00] VITALS: BP 162/75
[2020-04-11] MEDS ORDERED: IRON SUCROSE 200 MG/10 ML (VENOFER) VIAL IV ONE ×2 (12:30→12:34)
--- NOTE | 2020-04-11 12:42 | Progress Note ---
Subjective Date Seen by a Provider: Apr 11, 2020 Time Seen by a Provider: 12:35 Subjective/Events-last exam Fwup UTI with SIRS, hypotensive shock, uncontrolled diabetes mellitus, chronic stage 4 renal failure. Sitting up in bed. Asking for tramadol to help her sleep. Focused Exam Lactate Level 04/09/20 08:10: Lactic Acid Level 1.42 Objective Exam Vital Signs Date Time Temp Pulse Resp B/P (MAP) Pulse Ox O2 Delivery O2 Flow Rate FiO2 04/11/20 12:00 36.2 55 16 162/75 (104) 98 Room Air 04/11/20 08:08 36.2 53 17 141/71 (94) 98 Room Air 04/11/20 08:00 98 Room Air 04/11/20 03:26 36.6 69 17 115/68 (84) 98 Room Air 04/10/20 23:08 36.8 62 20 131/71 (91) 98 Room Air 04/10/20 20:00 Room Air 04/10/20 19:35 36.8 60 18 113/63 (80) 97 Room Air 04/10/20 16:00 36.7 95 16 112/66 (81) 97 Room Air I & O 04/11/20 07:00 Intake Total 4120 ml Output Total 2160 ml Balance 1960 ml Capillary Refill : Less Than 3 SecondsLess Than 3 Seconds General Appearance: No Apparent Distress Respiratory: Lungs Clear Cardiovascular: Regular Rate, Rhythm Gastrointestinal: normal bowel sounds, non tender, soft Extremity: Non Tender, No Calf Tenderness, No Pedal Edema Neurologic/Psychiatric: Alert, Oriented x3 Results Lab Laboratory Tests 04/10/20 15:45: Glucometer 198H 04/10/20 19:56: Glucometer 260H 04/11/20 04:30: White Blood Count 4.6, Red Blood Count 2.57L, Hemoglobin 7.7L, Hematocrit 23L, Mean Corpuscular Volume 91, Mean Corpuscular Hemoglobin 30, Mean Corpuscular Hemoglobin Concent 33, Red Cell Distribution Width 12.7, Platelet Count 150, Mean Platelet Volume 11.6, Sodium Level 136, Potassium Level 3.9, Chloride Level 107, Carbon Dioxide Level 19L, Anion Gap 10, Blood Urea Nitrogen 25H, Creatinine 1.55H, Estimat Glomerular Filtration Rate 35, BUN/Creatinine Ratio 16, Glucose Level 93, Calcium Level 8.2L, Corrected Calcium 9.4, Total Bilirubin 0.3, Aspartate Amino Transf (AST/SGOT) 44H, Alanine Aminotransferase (ALT/SGPT) 49, Alkaline Phosphatase 126, Total Protein 5.3L, Albumin 2.5L Microbiology 04/09/20 Blood Culture - Preliminary, Resulted No growth 04/09/20 Urine Culture - Preliminary, Resulted Klebsiella oxytoca 04/09/20 Influenza Types A,B Antigen (DUNIA) - Final, Complete Assessment/Plan Assessment/Plan Assess & Plan/Chief Complaint 1. UTI with SIRS--culture growing out Klebsiella oxytoca, HANY blevins, on Cefepime 2. Hypotensive Shock--improving with fluids 3. Uncontrolled Diabetes mellitus--insulin requiring--on SSI 4. Acute on Chronic Renal Failure--Cr improving with hydration 5. Hypertension--resume low dose hydralazine Clinical Quality Measures DVT/VTE Risk/Contraindication: Risk Factor Score Per Nursin RFS Level Per Nursing on Admit: 4+=Very High MIRELA LYLE DO Apr 11, 2020 12:42
--- NOTE | 2020-04-11 14:07 | Physical Therapy Evaluation ---
PT Evaluation-General Medical Diagnosis Admission Date Apr 09, 2020 at 09:05 Medical Diagnosis: UTi/dehydration Onset Date: Apr 09, 2020 Therapy Diagnosis Therapy Diagnosis: debility Height/Weight Height (Feet): 5 Height (Inches): 2.00 Weight (Pounds): 170 Weight (Ounces): 2.0 Precautions Precautions/Isolations: Fall Prevention Referral Physician: Vitaly Reason for Referral: Evaluation/Treatment Medical History Pertinent Medical History: COPD, CVA, DM, GERD, HTN, Neuropathy, Renal Insufficiency, Smoking Current History EMS secondary to"not feeling well" Reviewed History: Yes Social History Home: Single Level Current Living Status: Friend Entry Into Home: Stairs With Railing (1) Prior Prior Level of Function SCALE: Activities may be completed with or without assistive devices. 4-Lxtvawvctx-ewixuzc completes the activity by him/herself with no assistance from a helper. 5-Set-up or Clean-up Assistance-helper sets up or cleans up; patient completes activity. Belle assists only prior to or following the activity. 4-Supervision or Touching Assistance-helper provides verbal cues and/or touching/steadying and/or contact guard assistance as patient completes activity. Assistance may be provided throughout the activity or intermittently. 3-Partial/Moderate Assistance-helper does LESS THAN HALF the effort. Belle lifts, holds or supports trunk or limbs, but provides less than half the effort. 2-Substantial/Maximal Assistance-helper does MORE THAN HALF the effort. Belle lifts or holds trunk or limbs and provides more than half the effort. 8-Errtmikqv-zeywkz does ALL the effort. Patient does none of the effort to complete the activity. Or, the assistance of 2 or more helpers is required for the patient to complete the activity. If activity was not attempted, code reason: 7-Patient Refused. 9-Not Applicable-not attempted and the patient did not perform the activity before the current illness, exacerbation or injury. 10-Not Attempted due to Environmental Limitations-(lack of equipment, weather restraints, etc.). 88-Not Attempted due to Medical Conditions or Safety Concerns. Bed Mobility: 5 Transfers (B,C,W/C): 5 Gait: 5 Stairs: 5 Wheelchair Mobility: 9 Indoor Mobility (Ambulation): Independent Stairs: Independent Prior Devices Use: Walker PT Evaluation-Current Subjective Patient reluctantly agrees to PT. Objective Patient Orientation: Person, Time, Situation Attachments: De La Fuente Catheter, IV ROM/Strength ROM Lower Extremities bilateral LE wFL Strength Lower Extremities 4-/5 grossly bilateral LE Integumentary/Posture Integumentary refer to nursing notes Bladder Incontinence: De La Fuente Cath Posture WFL Neuromuscular (Tone, Coordination, Reflexes) slight diminished coordination due to old CVA and deconditioned Sensory Vision: Functional Hearing: Functional Transfers Roll Left to Right (QC): 6 Sit to Lying (QC): 6 Lying to Sitting/Side of Bed(Q: 6 Sit to Stand (QC): 5 Gait Does the Patient Walk?: Yes Mode of Locomotion: Walk Anticipated Mode of Locomotion: Walk Walk 10 feet (QC): 5 Walk 50 ft with 2 Turns(QC): 5 Walk 150 ft (QC): 5 Distance: 275' Gait Assistive Device: FWW Comments/Gait Description slow, steady gait sequence Balance Sitting Static: Normal Sitting Dynamic: Normal Standing Static: Good Standing Dynamic: Good Assessment/Needs 54 y.o. female, requires time to complete all functional tasks, will benefit from short term skilled PT to address functional mobility to ensure safe return to home with caregiver. Rehab Potential: Fair PT Short Term Goals Short Term Goals Time Frame: Apr 15, 2020 Roll Left & Right: 6 Sit to lyin Lying to sitting on side of be: 6 Sit to stand: 6 Chair/oqn-gb-dhhrs transfer: 6 Toilet transfer: 6 Car transfer: 6 Walk 10 feet: 6 Walk 50 feet with two turns: 6 Walk 150 feet: 6 PT Plan Problem List Problem List: Activity Tolerance, Safety Treatment/Plan Treatment Plan: Continue Plan of Care Treatment Plan: Education, Functional Activity Carlos, Functional Strength, Gait, Safety, Therapeutic Exercise, Transfers Treatment Duration: Apr 15, 2020 Frequency: 5 times per week Estimated Hrs Per Day: .25 hour per day Time/GCodes Time In: 1300 Time Out: 1325 Total Billed Treatment Time: 25 Total Billed Treatment 1 visit EVModC 12 min FA 13 min LISA NARANJO PT Apr 11, 2020 14:07
--- NOTE | 2020-04-11 14:40 | NUR ---
"RD ASSESSMENT PMHx: COPD; HTN; hypercholesterolemia; stroke; TBI; renal failure; chronic UTI; GERD; pancreatitis; DM PT INTERACTION: Note pt is currently in COVID isolation. Note all diet information for nutrition assessment is per Mary RN or per chart review. Mary states pt's current appetite appears good. Note avg PO intake 70% x2d, per chart review. Mary states pt appears to be dealing with constipation, as she has not had a BM since admit. Note pt not currently on bowel regimen per chart review. Note unable to determine recent wt hx, per chart review. Note unable to determine current level of DM management, and note unable to determine recent HbA1c, per chart review. Note pt has hx of uncontrolled DM, per H&P. ABNORMAL NUTRITION-RELATED LAB VALUES LOW: Ca 8.2; Pro 5.3; alb 2.5 HIGH: BUN 25; cr 1.55; AST 44 Est. kcal needs: 1200 kcal | 15 kcal/kg Est. Pro needs: 95 g Pro | 1.2 g Pro/kg PES STATEMENT: Inadequate oral intake (NI-2.1) related to loss of appetite and constipation, as evidenced by chart review, communication with RN, and avg PO intake 70% x2d. INTERVENTION: Continue with current diet order of CHO 45g/m 3snack diet. Pt may benefit from nutrition supplementation if PO intake declines. Did not offer diet education on DM management at this time, d/t COVID isolation. Would encourage pt to eat when able. Will continue to follow and reassess as pt needs, intake, and status change. Nieves Gallegos, MS RD LD"
[2020-04-11 16:15] VITALS: BP 186/87
[2020-04-11 20:00] VITALS: BP 145/74
--- NOTE | 2020-04-11 20:59 | Physician Query Clarification ---
"Physician Query-General Query to Physician: The medical record reflects the following clinical scenario: History/Risk factors: Abdominal pain, nausea, decreased mental status Clinical Findings: BP 80-90 Systolic, Cr 2.37, elevated liver enzymes Treatment: 4L of IVFs, approx 7000 oral intake, Monitoring Question: What condition best reflects the above clinical scenario? Please document response in the Progress notes or Discharge Summary. 1. Hypovolemic shock 2. Hypotensive shock (as currently documented) 3. Other , with explanation of the clinical findings 4. Clinically undetermined, no explanation for the clinical findings Please remember a lack of response to the above will prompt a phone page by CDI/coding staff In responding to this query, please exercise your independent professional judgment. The purpose of this communication is to more accurately reflect the complexity of your patients condition. The fact that a question is asked does not imply that any particular answer is desired or expected. Thank you for timely response to this clarification. Argentina Jackson, MSN, RN RN Specialist-Clinical Doc Improvement CD -Health Info Mgmt Operations [address] [facility] t: [phone] | f: [phone] If you are unable to reach me at my extension, I may be working from home. Please contact me at [phone] PHYSICIAN RESPONSE: Based on the clinical findings in the record, please respond to the query above on this document as an addendum. Physician Response: Physician Response Hypotensive shock If you have questions please contact: Renderer: Ext: Thank you for your time and cooperation. Clinical Strategy Specialist/Renderer This is a permanent part of the medical record ARGENTINA JACKSON Apr 11, 2020 20:58 MIRELA LYLE DO Apr 12, 2020 12:45"
[2020-04-12] VITALS: BP 144/84
[2020-04-12] MEDS: LACTATED RINGERS 1,000 ML IV SCH (03:18)
[2020-04-12] MEDS: ACETAMINOPHEN 500 MG TAB (TYLENOL) PO PRN (03:22)
[2020-04-12 04:00] VITALS: BP 137/83
[2020-04-12 04:45] LABS: HEMOGLOBIN 8.3 g/dL (11.5-16.0); WHITE BLOOD COUNT 5.5 10^3/uL (4.3-11.0)
[2020-04-12 04:58] LABS: ALBUMIN 2.7 GM/DL (3.2-4.5)
[2020-04-12 04:59] LABS: POTASSIUM 4.2 MMOL/L (3.6-5.0)
[2020-04-12 05:00] LABS: CALCIUM 8.4 MG/DL (8.5-10.1)
[2020-04-12 05:01] LABS: TOTAL PROTEIN 5.7 GM/DL (6.4-8.2)
[2020-04-12 05:03] LABS: BILIRUBIN,TOTAL 0.3 MG/DL (0.1-1.0)
[2020-04-12] MEDS: inSUlin ASPART (NovoLOG) 1 UNIT/0.01 ML (CHARGE PER UNIT) SC SCH ×2 (05:04→11:20)
[2020-04-12 05:05] LABS: CREATININE SERUM 1.39 MG/DL (0.60-1.30)
[2020-04-12 08:40] VITALS: BP 162/78
[2020-04-12] MEDS: CEFEPIME INJECTION 1,000 MG in WATER (STERILE) FOR INJECTION 10 ML IV SCH (09:54)
[2020-04-12] MEDS: FAMOTIDINE 20 MG (PEPCID) TABLET PO SCH (09:55)
[2020-04-12] MEDS: LACTOBACILLUS ACIDOPHILUS (PROBIOTIC) CAPSULE PO SCH ×2 (09:55→14:21)
--- NOTE | 2020-04-12 10:43 | Physical Therapy Daily Note ---
PT Daily Note-Current Subjective Patient in bed pre tx, agrees to PT, has 8/10 low back pain, nurse notified and she got pain meds. Appearance Patient in bed post tx with nurse call, phone, tray, bed alarm on, all needs met. Mental Status Patient Orientation: Person, Confused Transfers SCALE: Activities may be completed with or without assistive devices. 0-Qmhmgwyilj-vyhcute completes the activity by him/herself with no assistance from a helper. 5-Set-up or Clean-up Assistance-helper sets up or cleans up; patient completes activity. [place] assists only prior to or following the activity. 4-Supervision or Touching Assistance-helper provides verbal cues and/or touching/steadying and/or contact guard assistance as patient completes activity. Assistance may be provided throughout the activity or intermittently. 3-Partial/Moderate Assistance-helper does LESS THAN HALF the effort. [place] lifts, holds or supports trunk or limbs, but provides less than half the effort. 2-Substantial/Maximal Assistance-helper does MORE THAN HALF the effort. [place] lifts or holds trunk or limbs and provides more than half the effort. 4-Kbxdbgwpp-bthqnz does ALL the effort. Patient does none of the effort to complete the activity. Or, the assistance of 2 or more helpers is required for the patient to complete the activity. If activity was not attempted, code reason: 7-Patient Refused. 9-Not Applicable-not attempted and the patient did not perform the activity before the current illness, exacerbation or injury. 10-Not Attempted due to Environmental Limitations-(lack of equipment, weather restraints, etc.). 88-Not Attempted due to Medical Conditions or Safety Concerns. Roll Left & Right (QC): 6 Sit to Lying (QC): 6 Lying to Sitting/Side of Bed(Q: 6 Sit to Stand (QC): 4 Chair/Ugu-mh-Shldy Xfer(QC): 4 Gait Training Distance: 200' Walk 10 feet (QC): 4 Walk 50 ft with 2 Turns(QC): 4 Walk 150 ft (QC): 4 Gait Persons Needed: 1 Gait Assistive Device: FWW CGA, slow but steady ambulation Treatments Patient also had to use the restroom, she was able to sit and stand and manage her brief and wipe without assist Assessment Current Status: Fair Progress Patient seems to process very slowly, when asked a question it may take her a little while to answer and sometimes she just looks at you with a confused look PT Short Term Goals Short Term Goals Time Frame: Apr 15, 2020 Roll Left & Right: 6 Sit to lyin Lying to sitting on side of be: 6 Sit to stand: 6 Chair/eyg-wq-gmxad transfer: 6 Toilet transfer: 6 Car transfer: 6 Walk 10 feet: 6 Walk 50 feet with two turns: 6 Walk 150 feet: 6 PT Plan Problem List Problem List: Activity Tolerance, Functional Strength, Safety, Balance, Gait, Transfer Treatment/Plan Treatment Plan: Continue Plan of Care Treatment Plan: Education, Functional Activity Carlos, Functional Strength, Gait, Safety, Therapeutic Exercise, Transfers Treatment Duration: Apr 15, 2020 Frequency: 5 times per week Estimated Hrs Per Day: .25 hour per day Safety Risks/Education Patient Education: Gait Training, Transfer Techniques, Correct Positioning, Safety Issues Teaching Recipient: Patient Teaching Methods: Demonstration, Discussion Response to Teaching: Reinforcement Needed Time/GCodes Time In: 0946 Time Out: 1003 Total Billed Treatment Time: 17 Total Billed Treatment 1 visit FA Tanya' SHEA LOZOYA PT Apr 12, 2020 10:43
[2020-04-12 11:08] VITALS: BP 120/68
[2020-04-12] MEDS: ENOXAPARIN 40 MG/0.4 ML (LOVENOX) SYR SC SCH (11:27)
[2020-04-12] MEDS ORDERED: TRAM50TA3 PO (12:32)
[2020-04-12] MEDS ORDERED: AMOX-355 PO (12:32)
--- NOTE | 2020-04-12 12:44 | Discharge Summary ---
Discharge Summary Hospital Course Was the Problem List Reviewed?: Yes Hospital Course Date of Admission: Apr 09, 2020 at 09:05 Admission Diagnosis : Family Physician/Provider: Bailee Haider DO Date of Discharge: 04/12/20 Discharge Diagnosis: 1. UTI with SIRS--culture growing out Klebsiella oxytoca 2. Hypotensive Shock--resolved 3. Uncontrolled Diabetes mellitus--insulin requiring--BS stable in hospital 4. Acute on Chronic Renal Failure--Cr improved with hydration 5. Hypertension--resumed low dose hydralazine 6. Acute on Chronic Anemia--S/P venofer Hospital Course: This is a 54 year old female brought to the emergency room by her daughter/senior telecommunications engineer due to lethargy and confusion. She was found to be hypotensive with a UTI. She was admitted to the medical floor and given agressive IVFs for hypotensive shock. She was given IV cefepime for her UTI and her urine culture grew out Klebsiella oxytoca which was sensitive to the cefepime. Her home blood pressure medications were held until the day prior to discharge when her blood pressure did start to mildly elevated then her hydralazine was restarted at a low dose. Her BUN and creatinine also improved with hydration from 28 and 2.37 on admission to 21 and 1.39 on discharge respectively. She did have a drop in her hemoglobin to a low of 7.7 the day prior to discharge. She was given a dose of venofer and her hemoglobin is stable at 8.3 on discharge. Her WBC count is down from 18.3 on admission to 5.5 on discharge. She is afebrile. At this time she will be discharged home on augmentin with DC of lyrica and bumex as well as a decrease in her tramadol dose. She will have a CBC and CMP in 1 week and follow up with me in 1 week. Labs and Pending Lab Test: Laboratory Tests 04/11/20 16:14: Glucometer 209H 04/11/20 20:03: Glucometer 117H 04/12/20 04:40: White Blood Count 5.5, Red Blood Count 2.81L, Hemoglobin 8.3L, Hematocrit 25L, Mean Corpuscular Volume 89, Mean Corpuscular Hemoglobin 30, Mean Corpuscular Hemoglobin Concent 33, Red Cell Distribution Width 12.4, Platelet Count 188, Mean Platelet Volume 11.0, Sodium Level 136, Potassium Level 4.2, Chloride Level 103, Carbon Dioxide Level 19L, Anion Gap 14, Blood Urea Nitrogen 21H, Creatinine 1.39H, Estimat Glomerular Filtration Rate 40, BUN/Creatinine Ratio 15, Glucose Level 156H, Calcium Level 8.4L, Corrected Calcium 9.4, Total Bilirubin 0.3, Aspartate Amino Transf (AST/SGOT) 30, Alanine Aminotransferase (ALT/SGPT) 39, Alkaline Phosphatase 117, Total Protein 5.7L, Albumin 2.7L 04/12/20 10:48: Glucometer 161H Microbiology 04/09/20 Blood Culture - Preliminary, Resulted No growth 04/09/20 Urine Culture - Final, Complete Klebsiella oxytoca 04/09/20 Influenza Types A,B Antigen (DUNIA) - Final, Complete Home Meds Active Augmentin 500-125 Tablet (Amoxicillin/Potassium Clav) 1 Each Tablet 1 Each PO BID Tramadol HCl 50 Mg Tablet 25 Mg PO HS 1/2 tablet with 1 tylenol 500mg Reported Melatonin 5 mg Tablet (Melatonin/Pyridoxine) 1 Each Tablet 1 Each PO HS PRN Humalog Kwikpen (Insulin Lispro) 100 Unit/1 Ml Insuln.pen Unit SQ SLIDING/SCALE Calcitriol 0.25 Mcg Capsule 0.25 Mg PO DAILY Ondansetron HCl 4 Mg Tablet 4 Mg PO Q6H Hydralazine HCl 25 Mg Tablet 25 Mg PO BID Levemir Flextouch (Insulin Detemir) 100 Unit/1 Ml Insuln.pen 45 Units SQ DAILY Duloxetine HCl 60 Mg Capsule.dr 60 Mg PO DAILY Pregabalin 50 Mg Capsule 50 Mg PO HS Bumetanide 1 Mg Tablet 1 Mg PO FRI,FRI,FRI TAKES 1 TABLET FRIDAY, FRIDAY AND FRIDAY LAST FILLED 12/02/2019 #13 31 DAY SUPPLY Tylenol Extra Strength (Acetaminophen) 500 Mg Tablet 500 Mg PO TID PRN Ventolin Hfa (Albuterol Sulfate) 18 Gm Hfa.aer.ad 2 Puff INH Q6H PRN Assessment/Pt Instructions 1. UTI with SIRS--culture growing out Klebsiella oxytoca 2. Hypotensive Shock--resolved 3. Uncontrolled Diabetes mellitus--insulin requiring--BS stable in hospital 4. Acute on Chronic Renal Failure--Cr improved with hydration 5. Hypertension--resumed low dose hydralazine 6. Acute on Chronic Anemia--S/P venofer Discharge Planning: <30 minutes discharge planning Discharge Instructions Discharge Diet: ADA Diet Activity as Tolerated: Yes Discharge Physical Examination Vital Signs Vital Signs Date Time Temp Pulse Resp B/P (MAP) Pulse Ox O2 Delivery O2 Flow Rate FiO2 04/12/20 11:08 36.6 60 16 120/68 (85) 97 Room Air General Appearance: No Apparent Distress Respiratory: Lungs Clear Cardiovascular: Regular Rate, Rhythm Gastrointestinal: Normal Bowel Sounds, Non Tender, Soft Extremity: Non Tender, No Calf Tenderness, No Pedal Edema Skin: Warm/Dry Neurologic/Psychiatric: Alert Allergies: Coded Allergies: codeine (Verified Allergy, Mild, ITCHING, Pt has received Lortab in the past, 04/09/20) Sulfa (Sulfonamide Antibiotics) (Verified Allergy, Unknown, HIVES, 04/09/20) Discharge Summary Date of Admission Apr 09, 2020 at 09:05 Date of Discharge Clinical Quality Measures DVT/VTE Risk/Contraindication: Risk Factor Score Per Nursin RFS Level Per Nursing on Admit: 4+=Very High BAILEE HAIDER DO Apr 12, 2020 12:39
[2020-04-12 15:45] VITALS: BP 120/68
== END 2020-04-12 16:00 | disposition home or self-care (01) | DRG 689 ==
LOC: EDUNIT# 07:54 → ER 07:55 → 4TH 09:05
PROVIDERS: ADMIT Family Medicine; ATTEND Family Medicine
DX: N39.0 Urinary tract infection, site not specified (principal); R57.8 Other shock; N18.4 Chronic kidney disease, stage 4 (severe); E87.1 Hypo-osmolality and hyponatremia; N17.9 Acute kidney failure, unspecified; R74.8 Abnormal levels of other serum enzymes; I12.9 Hypertensive chronic kidney disease with stage 1 through stage 4 chronic kidney disease, or unspecified chronic kidney disease; B96.1 Klebsiella pneumoniae [K. pneumoniae] as the cause of diseases classified elsewhere; D64.9 Anemia, unspecified; E11.29 Type 2 diabetes mellitus with other diabetic kidney complication; E11.65 Type 2 diabetes mellitus with hyperglycemia; M54.9 Dorsalgia, unspecified; R53.81 Other malaise; Z20.828 Contact with and (suspected) exposure to other viral communicable diseases; J44.9 Chronic obstructive pulmonary disease, unspecified; E11.40 Type 2 diabetes mellitus with diabetic neuropathy, unspecified; G47.30 Sleep apnea, unspecified; E78.00 Pure hypercholesterolemia, unspecified; K21.9 Gastro-esophageal reflux disease without esophagitis; J30.2 Other seasonal allergic rhinitis; F41.9 Anxiety disorder, unspecified; F32.9 Major depressive disorder, single episode, unspecified; Z79.4 Long term (current) use of insulin; Z87.891 Personal history of nicotine dependence; Z87.820 Personal history of traumatic brain injury; Z87.19 Personal history of other diseases of the digestive system; Z86.73 Personal history of transient ischemic attack (TIA), and cerebral infarction without residual deficits; Z23 Encounter for immunization
CPT/HCPCS: 36415; 51702; 53620; 71045; 80053; 80076; 80306; 81000; 82962; 83036; 83605; 84484; 85007; 85027; 86141; 87040; 87077; 87088; 87186; 87635; 87804; 90686; 93005

== ENCOUNTER 2020-04-24 10:23 | Outpatient (RCR) | payer MEDICARE, MEDICAID ==
[~2020-04-24] VITALS: Ht 157.5 cm; Wt 79.5 kg
[~2020-04-24 10:23] MED LIST changes: +AMOX-355 PO; +CALC0.253 PO; -CLIN300C11 PO; +CLIN300C12 PO; +LISI10TA25 PO; +MELA1TAB15 PO; +PREG50CA65 PO; +TRAM50TA3 PO
[2020-04-24 10:35] VITALS: BP 145/96
[2020-04-24 11:12] LABS: BASOPHILS # (AUTO) 0.1 10^3/uL (0.0-0.1); BASOPHILS % (AUTO) 1 % (0-10); EOSINOPHILS # (AUTO) 0.1 10^3/uL (0.0-0.3); EOSINOPHILS % (AUTO) 1 % (0-10); HEMATOCRIT 33 % (35-52); LYMPHOCYTES # (AUTO) 2.5 10^3/uL (1.0-4.0); LYMPHOCYTES % (AUTO) 24 % (12-44); MEAN CORPUSCULAR HEMOGLOBIN 30 pg (25-34); MEAN CORPUSCULAR HGB CONC 33 g/dL (32-36); MEAN CORPUSCULAR VOLUME 91 fL (80-99); MEAN PLATELET VOLUME 10.6 fL (9.0-12.2); MONOCYTES # (AUTO) 0.5 10^3/uL (0.0-1.0); MONOCYTES % (AUTO) 5 % (0-12); NEUTROPHILS % (AUTO) 69 % (42-75); PLATELET COUNT 333 10^3/uL (130-400); WHITE BLOOD COUNT 10.2 10^3/uL (4.3-11.0)
[2020-04-24 11:33] LABS: ALBUMIN 3.5 GM/DL (3.2-4.5)
[2020-04-24 11:34] LABS: POTASSIUM 3.9 MMOL/L (3.6-5.0)
[2020-04-24 11:35] LABS: CALCIUM 8.8 MG/DL (8.5-10.1)
[2020-04-24 11:36] LABS: TOTAL PROTEIN 7.1 GM/DL (6.4-8.2)
[2020-04-24 11:40] LABS: CREATININE SERUM 1.36 MG/DL (0.60-1.30)
[2020-06-20] MEDS ORDERED: AMOX1TAB11 PO (14:12)
[2020-06-20] MEDS ORDERED: FAMO40TA6 PO (14:12)
[2020-06-20] MEDS ORDERED: MELA5TAB14 PO (14:12)
[2020-06-20] MEDS ORDERED: INSU100I48 SC (14:12)
[2020-06-20] MEDS ORDERED: TRAM50TA3 PO (14:12)
[2020-06-20] MEDS ORDERED: DIPH25CA79 PO (14:12)
== END 2020-07-23 | disposition home or self-care (01) ==
LOC: SDC 10:23
PROVIDERS: ATTEND Family Medicine
DX: Z45.2 Encounter for adjustment and management of vascular access device (principal); N28.9 Disorder of kidney and ureter, unspecified
CPT/HCPCS: 36415; 36591; 80053; 85025

== ENCOUNTER 2020-06-19 20:57 | Observation (INO) | payer MEDICARE, MEDICAID ==
[~2020-06-19] VITALS: Ht 167 cm; Wt 71.2 kg
[~2020-06-19 20:57] MED LIST changes: -LISI10TA25 PO
[2020-06-19] MEDS ORDERED: LACTATED RINGERS 1,000 ML IV ONE ×2 (21:15→22:30)
--- NOTE | 2020-06-19 21:18 | ED General ---
General Stated Complaint: AMS Source of Information: EMS Exam Limitations: Other (PT NOT TALKING OR FOLLOWING COMMANDS) History of Present Illness Date Seen by Provider: Jun 19, 2020 Time Seen by Provider: 21:00 Initial Comments PT ARRIVES VIA EMS FROM HOME PER EMS, FAMILY REPORTED THAT PT "HASN'T BEEN TRACKING" AND "NOT ACTING RIGHT" FOR THE LAST 9 DAYS HAS HISTORY OF UTI'S AND WAS STARTED ON AMOXIL YESTERDAY FOR UTI. SYMPTOMS NO DIFFERENT TONIGHT PT WITH HISTORY OF TRAUMATIC BRAIN INJURY IS REPORTED THAT PT'S MOTHER 7 DAYS AGO LATER DISCOVERED THAT PT'S GRAND DAUGHTER ALSO IN ER NOW FOR FEVER 102, SORE THROAT, COUGH/SHORTNESS OF BREATH, ABNORMAL TASTE/SMELL. NO OTHER INFORMATION IS OBTAINABLE PCP: DR. LYLE Allergies and Home Medications Allergies Coded Allergies: codeine (Verified Allergy, Mild, ITCHING, Pt has received Lortab in the past, 04/09/20) Sulfa (Sulfonamide Antibiotics) (Verified Allergy, Unknown, HIVES, 04/09/20) Home Medications Acetaminophen 500 Mg Tablet, 500 MG PO TID PRN for PAIN-MILD, (Reported) Amoxicillin/Potassium Clav 1 Each Tablet, 1 EA PO BID, (Reported) FILLED 06-14-2020 #14/7 DAY SUPPLY Calcitriol 0.25 Mcg Capsule, 0.25 MG PO DAILY, (Reported) LAST FILLED 02-25-2020 #30/30 DAY SUPPLY Diphenhydramine HCl 25 Mg Capsule, 25-50 MG PO HS PRN for SLEEP, (Reported) Duloxetine HCl 60 Mg Capsule.dr, 60 MG PO DAILY, (Reported) LAST FILLED 04-06-2020 #30/30 DAY SUPPLY Famotidine 40 Mg Tablet, 40 MG PO DAILY, (Reported) Insulin Detemir 100 Unit/1 Ml Insuln.pen, 45 UNITS SQ DAILY PRN for HYPERGLYCEMIA, (Reported) Insulin Lispro 100 Unit/1 Ml Insuln.pen, UNITS SC SLIDING/SCALE, (Reported) Melatonin 5 Mg Tablet, 5 MG PO HS PRN for SLEEP, (Reported) Ondansetron HCl 4 Mg Tablet, 4 MG PO Q6H PRN for NAUSEA/VOMITING-1ST LINE, (Reported) Tramadol HCl 50 Mg Tablet, 25 MG PO HS, (Reported) TAKES OF A 50MG TAB Patient Home Medication List Home Medication List Reviewed: Yes Review of Systems Review of Systems Constitutional: see HPI Psychiatric/Neurological: See HPI Past Ildfaep-Eeniuw-Chptrm Hx Past Med/Social Hx: Reviewed and Corrections made Patient Social History Drug of Choice: opioids Smoking Status: Former Smoker Type Used: Cigars, Cigarettes Former Smoker, Quit: May 23, 2018 2nd Hand Smoke Exposure: Yes Recent Hopitalizations: No ([facility] - stroke May 2018 ) Immunizations Up To Date Tetanus Booster (TDap): Less than 5yrs Date of Pneumonia Vaccine: Jun 09, 2008 Date of Influenza Vaccine: Jun 28, 2017 Seasonal Allergies Seasonal Allergies: Yes Past Medical History Surgeries: Yes (Left breast cyst, x2, ORIF Right ankle; PORT RIGHT CHEST) Breast, Section, Gallbladder, Orthopedic, Tubal Ligation Respiratory: Yes (CPAP not used after last sleep study) Sleep Apnea, COPD Cardiac: Yes Chronic Edema/Swelling, High Cholesterol, Hypertension Neurological: Yes (HYPOGLYCEMIC ENCEPHALOPATHY) Neuropathy, Stroke, Traumatic Brain Injury 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 Disorders: No 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 Disorders: Denies 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 Sexually Transmitted Disease: No HIV/AIDS: No Genitourinary: Yes (NO DIALYSIS) Renal Failure, UTI-Chronic Gastrointestinal: Yes Gastroesophageal Reflux, Pancreatitis Musculoskeletal: Yes (right ankle fx with steel plate) Degenerate Disk Disease, Chronic Back Pain Endocrine: Yes Diabetes, Insulin dep HEENT: No Loss of Vision: Denies Hearing Impairment: Denies Cancer: No Psychosocial: Yes (DGTR STATES PT HAS ADDICTIVE PERSONALITY) Sleep Difficulties, Anxiety, Depression Integumentary: Yes (FREQUENT CELLULITIS--LEGS) Recent Skin Changes Blood Disorders: No Adverse Reaction/Blood Tranf: No Family Medical History Completed stroke 19 FATHER Congenital heart disease 19 FATHER Diabetes mellitus 19 FATHER Myocardial infarction 19 FATHER Psychosocial problem 19 FATHER (depression) 19 MOTHER (depression) Respiratory disorder 19 MOTHER (copd) Heart Disease, COPD, Diabetes, Psychiatric Problems, Stroke Physical Exam Vital Signs Vital Signs - First Documented 06/19/20 20:57 Temp 35.5 Pulse 69 Resp 16 B/P (MAP) 126/69 (88) Pulse Ox 99 O2 Delivery Room Air Capillary Refill : Height, Weight, BMI Height: 5'2.00" Weight: 170lbs. 2.0oz. [id number]; 32.16 BMI Method:Stated General Appearance: No Apparent Distress, WD/WN, Other (PT AWAKE AND LOOKING AR OUND, BUT NOT TALKING OR FOLLOWING COMMANDS WELL. VERY FLAT AFFECT, SOMEWHAT LETHARGIC.) HEENT: Pharynx Normal Neck: Normal Inspection Respiratory: Normal Breath Sounds, No Accessory Muscle Use, No Respiratory Distress Cardiovascular: Regular Rate, Rhythm, No Edema, No JVD, No Murmur Gastrointestinal: Non Tender, Soft Back: No CVA Tenderness Extremity: Normal Inspection, No Pedal Edema Neurologic/Psychiatric: Alert, No Motor/Sensory Deficits (GROSSLY INTACT), Other (MENTATION ABOVE) Focused Exam Lactate Level 06/19/20 21:20: Lactic Acid Level 0.77 Procedures/Interventions Date of ETT Placement: Jun 03, 2018 Time of ETT Placement: 1310 Progress/Results/Core Measures Suspected Sepsis SIRS Temperature: Pulse: Respiratory Rate: Laboratory Tests 06/19/20 21:12: White Blood Count 12.0H 06/20/20 05:18: White Blood Count 10.7 Blood Pressure / Mean: 06/19/20 21:20: Lactic Acid Level 0.77 Laboratory Tests 06/19/20 21:12: Creatinine 2.14H, INR Comment 0.9, Platelet Count 405H, Total Bilirubin 0.3 06/20/20 05:18: Creatinine 1.61H, Platelet Count 314, Total Bilirubin 0.2 Results/Orders Lab Results Laboratory Tests Test 06/19/20 21:12 06/19/20 21:15 06/19/20 21:20 06/19/20 21:29 Range/Units White Blood Count 12.0 H 4.3-11.0 10^3/uL Red Blood Count 4.64 3.80-5.11 10^6/uL Hemoglobin 13.7 11.5-16.0 g/dL Hematocrit 42 35-52 % Mean Corpuscular Volume 90 80-99 fL Mean Corpuscular Hemoglobin 30 25-34 pg Mean Corpuscular Hemoglobin Concent 33 32-36 g/dL Red Cell Distribution Width 13.9 10.0-14.5 % Platelet Count 405 H 130-400 10^3/uL Mean Platelet Volume 10.2 9.0-12.2 fL Immature Granulocyte % (Auto) 2 % Neutrophils (%) (Auto) 73 42-75 % Lymphocytes (%) (Auto) 19 12-44 % Monocytes (%) (Auto) 4 0-12 % Eosinophils (%) (Auto) 1 0-10 % Basophils (%) (Auto) 1 0-10 % Neutrophils # (Auto) 8.8 H 1.8-7.8 10^3/uL Lymphocytes # (Auto) 2.3 1.0-4.0 10^3/uL Monocytes # (Auto) 0.5 0.0-1.0 10^3/uL Eosinophils # (Auto) 0.1 0.0-0.3 10^3/uL Basophils # (Auto) 0.1 0.0-0.1 10^3/uL Immature Granulocyte # (Auto) 0.2 H 0.0-0.1 10^3/uL Erythrocyte Sedimentation Rate 38 H 0-30 MM/HR Prothrombin Time 12.9 12.2-14.7 SEC INR Comment 0.9 0.8-1.4 Activated Partial Thromboplast Time 28 24-35 SEC D-Dimer 2.62 H 0.00-0.49 UG/ML Sodium Level 133 L 135-145 MMOL/L Potassium Level 4.2 3.6-5.0 MMOL/L Chloride Level 100 98-107 MMOL/L Carbon Dioxide Level 19 L 21-32 MMOL/L Anion Gap 14 5-14 MMOL/L Blood Urea Nitrogen 30 H 7-18 MG/DL Creatinine 2.14 H 0.60-1.30 MG/DL Estimat Glomerular Filtration Rate 24 BUN/Creatinine Ratio 14 Glucose Level 116 H 70-105 MG/DL Calcium Level 9.5 8.5-10.1 MG/DL Corrected Calcium 10.1 8.5-10.1 MG/DL Magnesium Level 2.2 1.6-2.4 MG/DL Total Bilirubin 0.3 0.1-1.0 MG/DL Aspartate Amino Transf (AST/SGOT) 10 5-34 U/L Alanine Aminotransferase (ALT/SGPT) 10 0-55 U/L Alkaline Phosphatase 89 40-136 U/L Lactate Dehydrogenase 135 125-220 U/L Total Creatine Kinase 8 L 29-168 U/L Creatine Kinase MB 0.8 <6.6 NG/ML Myoglobin 49.3 10.0-92.0 NG/ML Troponin I < 0.028 <0.028 NG/ML C-Reactive Protein High Sensitivity 2.60 H 0.00-0.50 MG/DL Total Protein 7.1 6.4-8.2 GM/DL Albumin 3.2 3.2-4.5 GM/DL Procalcitonin 0.13 H <0.10 NG/ML TSH [place] Testing 1.24 0.35-4.94 UIU/ML Monoscreen NEGATIVE NEGATIVE Coronavirus 2019 ([facility]) Negative Negative Lactic Acid Level 0.77 0.50-2.00 MMOL/L Coronavirus (COVID-19)(PCR) Negative Negative Group A Streptococcus Screen NEGATIVE NEGATIVE Test 06/19/20 21:39 06/20/20 05:18 06/20/20 11:20 06/20/20 16:00 Range/Units Urine Color YELLOW Urine Clarity CLOUDY Urine pH 6.0 5-9 Urine Specific [place] 1.025 H 1.016-1.022 Urine Protein 3+ H NEGATIVE Urine Glucose (UA) NEGATIVE NEGATIVE Urine Ketones 1+ H NEGATIVE Urine Nitrite NEGATIVE NEGATIVE Urine Bilirubin 2+ H NEGATIVE Urine Urobilinogen 0.2 < = 1.0 MG/DL Urine Leukocyte Esterase 1+ H NEGATIVE Urine RBC (Auto) 2+ H NEGATIVE Urine RBC NONE /HPF Urine WBC TNTC H /HPF Urine Squamous Epithelial Cells RARE /HPF Urine Crystals NONE /LPF Urine Bacteria LARGE H /HPF Urine Casts NONE /LPF Urine Mucus LARGE H /LPF Urine Culture Indicated YES White Blood Count 10.7 4.3-11.0 10^3/uL Red Blood Count 3.43 L 3.80-5.11 10^6/uL Hemoglobin 10.2 #L 11.5-16.0 g/dL Hematocrit 30 L 35-52 % Mean Corpuscular Volume 89 80-99 fL Mean Corpuscular Hemoglobin 30 25-34 pg Mean Corpuscular Hemoglobin Concent 34 32-36 g/dL Red Cell Distribution Width 13.6 10.0-14.5 % Platelet Count 314 130-400 10^3/uL Mean Platelet Volume 10.5 9.0-12.2 fL Immature Granulocyte % (Auto) 2 % Neutrophils (%) (Auto) 75 42-75 % Lymphocytes (%) (Auto) 17 12-44 % Monocytes (%) (Auto) 5 0-12 % Eosinophils (%) (Auto) 1 0-10 % Basophils (%) (Auto) 0 0-10 % Neutrophils # (Auto) 8.0 H 1.8-7.8 10^3/uL Lymphocytes # (Auto) 1.8 1.0-4.0 10^3/uL Monocytes # (Auto) 0.6 0.0-1.0 10^3/uL Eosinophils # (Auto) 0.1 0.0-0.3 10^3/uL Basophils # (Auto) 0.0 0.0-0.1 10^3/uL Immature Granulocyte # (Auto) 0.2 H 0.0-0.1 10^3/uL Sodium Level 130 L 135-145 MMOL/L Potassium Level 4.1 3.6-5.0 MMOL/L Chloride Level 101 98-107 MMOL/L Carbon Dioxide Level 17 L 21-32 MMOL/L Anion Gap 12 5-14 MMOL/L Blood Urea Nitrogen 24 H 7-18 MG/DL Creatinine 1.61 H 0.60-1.30 MG/DL Estimat Glomerular Filtration Rate 34 BUN/Creatinine Ratio 15 Glucose Level 288 H 70-105 MG/DL Calcium Level 8.1 L 8.5-10.1 MG/DL Corrected Calcium 9.4 8.5-10.1 MG/DL Total Bilirubin 0.2 0.1-1.0 MG/DL Aspartate Amino Transf (AST/SGOT) 8 5-34 U/L Alanine Aminotransferase (ALT/SGPT) 8 0-55 U/L Alkaline Phosphatase 66 40-136 U/L Total Protein 5.2 L 6.4-8.2 GM/DL Albumin 2.4 L 3.2-4.5 GM/DL Glucometer 344 H 227 H 70-110 MG/DL Test 06/20/20 20:13 Range/Units Glucometer 199 H 70-110 MG/DL Micro Results Microbiology 06/19/20 Urine Culture - Final, Complete NO GROWTH 06/19/20 Throat Culture - Preliminary, Resulted No Beta Strep isolated 06/19/20 Blood Culture - Preliminary, Resulted No growth 06/19/20 Influenza Types A,B Antigen (DUNIA) - Final, Complete 06/19/20 Blood Culture - Preliminary, Resulted No growth My Orders Orders - ROMARIO DUMONT DO Ed Iv/Invasive Line Start (06/19/20 21:08) Ekg Tracing (06/19/20 21:08) Monitor-Rhythm Ecg Trace Only (06/19/20 21:08) Ct Head Wo-R/O Stroke (06/19/20 21:08) Chest 1 View, Ap/Pa Only (06/19/20 21:08) Cbc With Automated Diff (06/19/20 21:08) Comprehensive Metabolic Panel (06/19/20 21:08) Creatine Kinase (06/19/20 21:08) Creatine Kinase Mb (06/19/20 21:08) Hs C Reactive Protein (06/19/20 21:08) Fibrin Degradation Products (06/19/20 21:08) Lactic Acid Analyzer (06/19/20 21:08) Magnesium (06/19/20 21:08) Monotest (06/19/20 21:08) Procalcitonin (Pct) (06/19/20 21:08) Protime With Inr (06/19/20 21:08) Partial Thromboplastin Time (06/19/20 21:08) Rapid Strep A Screen (06/19/20 21:08) Thyroid Analyzer (06/19/20 21:08) Ua Culture If Indicated (06/19/20 21:08) Blood Culture (06/19/20 21:08) Influenza A And B Antigens (06/19/20 21:08) Erythrocyte Sedimentation Rate (06/19/20 21:08) Myoglobin Serum (06/19/20 21:08) Troponin I (06/19/20 21:08) Ed Iv/Invasive Line Start (06/19/20 21:08) Lactated Ringers (Lr 1000 Ml Iv Solution (06/19/20 21:15) LDH (06/19/20 21:08) Coronavirus Sars-Cov-2 So 2018 (06/19/20 21:08) Covid 19 Inhouse Test (06/19/20 21:08) Catheter(Urinary) Insert & Ass 03,15 (06/19/20 21:08) Urine Culture (06/19/20 21:39) Ceftriaxone For Iv Use (Rocephin For I (06/19/20 22:30) Ed Iv/Invasive Line Start (06/19/20 22:17) Lactated Ringers (Lr 1000 Ml Iv Solution (06/19/20 22:30) Vital Signs/I&O 06/20/20 06/20/20 06/20/20 06/20/20 11:48 12:56 15:57 19:00 Temp 36.5 36.9 Pulse 82 80 79 81 Resp 20 22 B/P (MAP) 135/69 (91) 126/74 (91) Pulse Ox 98 100 O2 Delivery Room Air Room Air 06/20/20 20:09 Temp 36.5 Pulse 73 Resp 20 B/P (MAP) 131/77 (95) Pulse Ox 100 O2 Delivery Room Air Capillary Refill : Progress Note : Progress Note PLACED IN ISOLATION ROOM PPE WORN AT ALL TIMES COVID-19 TESTING PERFORMED PT MORE ALERT AND TALKING DURING ER STAY. SPEECH IS CLEAR. AT ONE POINT, PT GOT OUT OF BED, PULLED OFF ALL MONITORING DEVICES AND SAID SHE HAD TO PEE ( PT HAD CATHETER IN PLACE AT THAT TIME) PT RE-DIRECTED BACK INTO BED, EXPLAINED THAT SHE HAD A CATHETER. PT FOLLOWING SIMPLE COMMANDS AND ABLE TO STAND ON OWN. PT WANTING REMOTE FOR TV, AND WANTING BLANKETS, WHICH WERE GIVEN TO HER PT RESTED QUIETLY FOR REMAINDER OF ER STAY. NO DETERIORATION IN PT'S CONDITION DURING ER STAY ECG Initial ECG Impression Date: Jun 19, 2020 Initial ECG Impression Time: 21:29 Initial ECG Rate: 73 Initial ECG Rhythm: Normal Sinus Diagnostic Imaging Comments CXR--NO ACUTE PROCESS, PER RADIOLOGIST REPORT AT 2213 CT HEAD--NO ACUTE PROCESS, PER RADIOLOGIST REPORT AT 2216 AND PER [facility] VIA FAX AT 2223 Reviewed: Reviewed by Me Departure Communication (Admissions) 2217--SPOKE WITH DR. LYLE, ACCEPTS PT FOR ADMIT. Impression Primary Impression: Person under investigation for COVID-19 Additional Impressions: Altered mental status UTI (urinary tract infection) Dehydration Acute on chronic renal insufficiency Hx of traumatic brain injury IDDM (insulin dependent diabetes mellitus) Disposition: ADMITTED INPATIENT Condition: Stable Admissions Decision to Admit Reason: Admit from ER (General) Decision to Admit/Date: Jun 19, 2020 Time/Decision to Admit Time: 22:20 Departure-Patient Inst. Referrals: MIRELA LYLE DO (PCP/Family) Primary Care Physician ROMARIO DUMONT DO Jun 19, 2020 21:18
[2020-06-19 21:22] LABS: BASOPHILS # (AUTO) 0.1 10^3/uL (0.0-0.1); BASOPHILS % (AUTO) 1 % (0-10); EOSINOPHILS # (AUTO) 0.1 10^3/uL (0.0-0.3); EOSINOPHILS % (AUTO) 1 % (0-10); HEMATOCRIT 42 % (35-52); HEMOGLOBIN 13.7 g/dL (11.5-16.0); LYMPHOCYTES # (AUTO) 2.3 10^3/uL (1.0-4.0); LYMPHOCYTES % (AUTO) 19 % (12-44); MEAN CORPUSCULAR HEMOGLOBIN 30 pg (25-34); MEAN CORPUSCULAR HGB CONC 33 g/dL (32-36); MEAN CORPUSCULAR VOLUME 90 fL (80-99); MEAN PLATELET VOLUME 10.2 fL (9.0-12.2); MONOCYTES # (AUTO) 0.5 10^3/uL (0.0-1.0); MONOCYTES % (AUTO) 4 % (0-12); NEUTROPHILS # (AUTO) 8.8 10^3/uL (1.8-7.8); NEUTROPHILS % (AUTO) 73 % (42-75); PLATELET COUNT 405 10^3/uL (130-400)
[2020-06-19 21:33] LABS: ALBUMIN 3.2 GM/DL (3.2-4.5); CHLORIDE 100 MMOL/L (98-107); POTASSIUM 4.2 MMOL/L (3.6-5.0); SODIUM 133 MMOL/L (135-145)
[2020-06-19 21:35] LABS: CALCIUM 9.5 MG/DL (8.5-10.1)
[2020-06-19 21:36] LABS: GLUCOSE 116 MG/DL (70-105); TOTAL PROTEIN 7.1 GM/DL (6.4-8.2)
[2020-06-19 21:37] LABS: CARBON DIOXIDE 19 MMOL/L (21-32)
[2020-06-19 21:38] LABS: BILIRUBIN,TOTAL 0.3 MG/DL (0.1-1.0); FIBRIN DEGRADATION PRODUCTS 2.62 UG/ML (0.00-0.49); INR 0.9 (0.8-1.4); PROTHROMBIN TIME PATIENT 12.9 SEC (12.2-14.7)
[2020-06-19 21:39] LABS: ALKALINE PHOSPHATASE 89 U/L (40-136)
[2020-06-19 21:40] LABS: CREATININE SERUM 2.14 MG/DL (0.60-1.30); GFR ESTIMATED 24
--- NOTE | 2020-06-19 21:40 | Diagnostic Imaging Report ---
INDICATION: Altered mental status. Frontal chest obtained at 09:34 p.m. and compared to 04/09/2020. Port-A-Cath is unchanged. The heart is normal in size. There is no focal infiltrate or pneumothorax or pleural fluid. IMPRESSION: No acute process in the chest. Dictated by: Dictated on workstation # [id number]
[2020-06-19 21:41] LABS: BUN/CREATININE RATIO 14
[2020-06-19 21:42] LABS: ALANINE AMINOTRANSFERASE 10 U/L (0-55); MAGNESIUM 2.2 MG/DL (1.6-2.4)
[2020-06-19 21:43] LABS: CREATINE KINASE 8 U/L (29-168); ERYTHROCYTE SEDIMENTATION RATE 38 MM/HR (0-30)
[2020-06-19 21:50] LABS: CREATINE KINASE MB 0.8 NG/ML (<6.6)
[2020-06-19 21:52] LABS: CLARITY,URINE CLOUDY; COLOR,URINE YELLOW; GLUCOSE, URINE (UA) NEGATIVE (NEGATIVE); KETONES,URINE 1+ (NEGATIVE); LEUKOCYTE ESTERASE ,URINE 1+ (NEGATIVE); NITRITE,URINE NEGATIVE (NEGATIVE); PROTEIN,URINE 3+ (NEGATIVE)
[2020-06-19 22:01] LABS: BACTERIA,URINE LARGE /HPF; BILIRUBIN,URINE 2+ (NEGATIVE); SQUAMOUS EPITHELIAL CELL,UR RARE /HPF; WBC,URINE TNTC /HPF
[2020-06-19 22:03] LABS: TSH (THYROID ANALYZER) 1.24 UIU/ML (0.35-4.94)
--- NOTE | 2020-06-19 22:12 | Diagnostic Imaging Report ---
INDICATION: Neurologic deficits. TECHNIQUE: Multiple contiguous axial images were obtained through the brain without the use of intravenous contrast. Auto Exposure Controls were utilized during the CT exam to meet ALARA standards for radiation dose reduction. COMPARISON: 05/10/2019. There are mild diffuse atrophic changes. There were no extra-axial fluid collections. No intracranial hemorrhage. No intracranial mass or mass effect. No midline shift. The ventricles are normal in size and position. There were no focal parenchymal abnormalities in the brain. Calvarial windows are unremarkable. IMPRESSION: Mild atrophic changes with no acute intracranial process on a noncontrast head CT. Dictated by: Dictated on workstation # [id number]
[2020-06-19] MEDS ORDERED: cefTRIAXone FOR IV USE 1,000 MG in WATER (STERILE) FOR INJECTION 10 ML IV ONE (22:30)
--- NOTE | 2020-06-19 23:36 | NUR ---
Report given to Suma RYAN on 4th floor.
[2020-06-19 23:59] VITALS: BP 158/86
--- NOTE | 2020-06-20 00:09 | NUR ---
CHEPE CASTANEDA admitted to room 420-1, with an admitting diagnosis of UTI, on 06/19/20 from ED via CART, accompanied by ED.CHEPE CASTANEDA introduced to surroundings, call light, bed controls, phone, TV, temperature control, lights, meal times, smoking policy, visitor policy, side rail policy, bathrooms and showers. Patient Rights given to patient in the handbook. CHEPE CASTANEDA verbalizes understanding that [facility] is not responsible for the loss or damage to any personal effects or valuables that are kept in the patients posession during their hospitalization.CHEPE CASTANEDA verbalizes understanding of Interdisciplinary Patient Education. Patient and/or family were informed about the Rapid Response Team and its purpose.
[2020-06-20] MEDS ORDERED: ACETAMINOPHEN 500 MG TAB (TYLENOL) PO PRN (00:15)
[2020-06-20] MEDS ORDERED: ONDANSETRON 4 MG/2 ML (SDV) Z0FRAN IV PRN (00:15)
--- NOTE | 2020-06-20 00:17 | NUR ---
Patient's daughter Alla called and update given on patient. Daughter informed to chose a salesperson jewelry for updates. She verbalizes understanding.
[2020-06-20] MEDS: D5 1/2 NS W/KCL 20 MEQ/L 1,000 ML IV SCH ×3 (00:42→12:02)
[2020-06-20 01:14] VITALS: BP 158/86
[2020-06-20 04:16] VITALS: BP 149/83
[2020-06-20 05:49] LABS: BASOPHILS % (AUTO) 0 % (0-10); EOSINOPHILS # (AUTO) 0.1 10^3/uL (0.0-0.3); EOSINOPHILS % (AUTO) 1 % (0-10); HEMATOCRIT 30 % (35-52); HEMOGLOBIN 10.2 g/dL (11.5-16.0); LYMPHOCYTES # (AUTO) 1.8 10^3/uL (1.0-4.0); LYMPHOCYTES % (AUTO) 17 % (12-44); MEAN CORPUSCULAR HEMOGLOBIN 30 pg (25-34); MEAN CORPUSCULAR HGB CONC 34 g/dL (32-36); MEAN CORPUSCULAR VOLUME 89 fL (80-99); MEAN PLATELET VOLUME 10.5 fL (9.0-12.2); MONOCYTES # (AUTO) 0.6 10^3/uL (0.0-1.0); MONOCYTES % (AUTO) 5 % (0-12); NEUTROPHILS % (AUTO) 75 % (42-75); PLATELET COUNT 314 10^3/uL (130-400); WHITE BLOOD COUNT 10.7 10^3/uL (4.3-11.0)
[2020-06-20 05:58] LABS: ALBUMIN 2.4 GM/DL (3.2-4.5); POTASSIUM 4.1 MMOL/L (3.6-5.0)
[2020-06-20 05:59] LABS: CALCIUM 8.1 MG/DL (8.5-10.1)
[2020-06-20 06:00] LABS: TOTAL PROTEIN 5.2 GM/DL (6.4-8.2)
[2020-06-20 06:02] LABS: BILIRUBIN,TOTAL 0.2 MG/DL (0.1-1.0)
[2020-06-20 06:04] LABS: CREATININE SERUM 1.61 MG/DL (0.60-1.30)
[2020-06-20] MEDS ORDERED: FLU QUADRIvalent (3YOA+) 60 mcg/0.5 ml 2020-21 (AFLURIA) IM ONE (07:45)
[2020-06-20 08:10] VITALS: BP 134/66
[2020-06-20] MEDS ORDERED: amLODIPine 5 MG (NORVASC) TAB PO NR (10:15)
[2020-06-20 11:48] VITALS: BP 135/69
[2020-06-20] MEDS: inSUlin ASPART (NovoLOG) 1 UNIT/0.01 ML (CHARGE PER UNIT) SC SCH ×3 (12:02→20:34)
[2020-06-20] MEDS: FAMOTIDINE 20 MG (PEPCID) TABLET PO SCH (12:02)
[2020-06-20] MEDS: ENOXAPARIN 40 MG/0.4 ML (LOVENOX) SYR SC SCH (12:02)
[2020-06-20] MEDS ORDERED: FAMO40TA6 PO (14:12)
[2020-06-20] MEDS ORDERED: TRAM50TA3 PO (14:12)
[2020-06-20] MEDS ORDERED: INSU100I48 SC (14:12)
[2020-06-20] MEDS ORDERED: DIPH25CA79 PO (14:12)
[2020-06-20] MEDS ORDERED: AMOX1TAB11 PO (14:12)
[2020-06-20] MEDS ORDERED: MELA5TAB14 PO (14:12)
--- NOTE | 2020-06-20 14:17 | NUR ---
UNABLE TO REACH DAUGHTER- CALLED HER DAUGHTER (ANNIKA), WENT THRU THE EXT MED HISTORY AND CALLED [facility] TO COMPLETE THE MED REC ACCORDING TO ANNIKA THE PT DOES NOT TAKING LEVEMIR CONSISTENTLY AND USES IT MORE ON AN NEEDED BASIS ANNIKA LET ME KNOW THE PT IS NO LONGER TAKING PREGABALIN (DR. LYLE DISCONTINUED) AND HYDRALAZINE (ANNIKA THINKS HER MOM JUST QUIT TAKING). CALCITRIOL 0.25MG (LAST FILLED 02-25-2020 #30/30DS) AND DULOXETINE 60MG (LAST FILLED 04-06-2020 #30/30DS) ARE BOTH PAST DUE FOR REFILLS AND I INCLUDED THE FILL DATES ON THE MED REC. WHEN I ASKED ANNIKA ABOUT BEING OVER DUE FOR REFILLS SHE RESPONDED "SHE JUST HAS EXTRAS". BUT LOOKED BACK THRU THE EXT MED HISTORY HER MEDICATIONS HAVEN'T BEEN FILLED EARLY OTC MEDS: MELATONIN BENADRYL TYLENOL
--- NOTE | 2020-06-20 14:31 | NUR ---
Received dietary consult for MST score. Note pt is currently COVID-PUI, per chart review. Will monitor PO intake and have full assessment, pending results. Nieves Gallegos MS RD LD [phone] cell
--- NOTE | 2020-06-20 15:12 | NUR ---
SPOKE WITH PT DAUGHTER JACQUELINE WHO REPORTS SHE IS PATIENTS MAIN EMERGENCY CONTACT. UPDATED PT DAUGHTER AND PASSWORD WAS SET UP AT THIS TIME.
[2020-06-20 15:57] VITALS: BP 126/74
--- NOTE | 2020-06-20 17:20 | History & Physical ---
History of Present Illness History of Present Illness Reason for visit/HPI This is a 54 year old female with a history of recurrent UTIs who was brought to the emergency room with worsening weakness, refusal to eat and worsening confusion. She was found to have a UTI with sepsis and worsening renal failure. She will be admitted on sepsis protocol with IV rocephin and blood and urine cultures pending. She is also a PUI as her granddaughter is a presumed positive . Date of Admission Jun 19, 2020 at 22:20 Date Seen by a Provider: Jun 20, 2020 Time Seen by a Provider: 17:06 I consulted on this patient on 06/20/20 17:05 Attending Physician Bailee Lyle DO Admitting Physician Bailee Lyle DO Consult Allergies and Home Medications Allergies Coded Allergies: codeine (Verified Allergy, Mild, ITCHING, Pt has received Lortab in the past, 04/09/20) Sulfa (Sulfonamide Antibiotics) (Verified Allergy, Unknown, HIVES, 04/09/20) Home Medications Acetaminophen 500 Mg Tablet, 500 MG PO TID PRN for PAIN-MILD, (Reported) Amoxicillin/Potassium Clav 1 Each Tablet, 1 EA PO BID, (Reported) FILLED 06-14-2020 #14/7 DAY SUPPLY Calcitriol 0.25 Mcg Capsule, 0.25 MG PO DAILY, (Reported) LAST FILLED 02-25-2020 #30/30 DAY SUPPLY Diphenhydramine HCl 25 Mg Capsule, 25-50 MG PO HS PRN for SLEEP, (Reported) Duloxetine HCl 60 Mg Capsule.dr, 60 MG PO DAILY, (Reported) LAST FILLED 04-06-2020 #30/30 DAY SUPPLY Famotidine 40 Mg Tablet, 40 MG PO DAILY, (Reported) Insulin Detemir 100 Unit/1 Ml Insuln.pen, 45 UNITS SQ DAILY PRN for HYPERGLYCEMIA, (Reported) Insulin Lispro 100 Unit/1 Ml Insuln.pen, UNITS SC SLIDING/SCALE, (Reported) Melatonin 5 Mg Tablet, 5 MG PO HS PRN for SLEEP, (Reported) Ondansetron HCl 4 Mg Tablet, 4 MG PO Q6H PRN for NAUSEA/VOMITING-1ST LINE, (Reported) Tramadol HCl 50 Mg Tablet, 25 MG PO HS, (Reported) TAKES OF A 50MG TAB Patient Home Medication List Home Medication List Reviewed: Yes Past Dvveyyd-Cveirz-Yvqpvp Hx Past Med/Social Hx: Reviewed Nursing Past Med/Soc Hx Patient Social History Marrital Status: Employed/Student: unemployed Alcohol Use: Denies Use Recreational Drug Use: No Drug of Choice: opioids Smoking Status: Unknown if Ever Smoked Former Smoker, Quit: May 23, 2018 Type Used: Cigars, Cigarettes 2nd Hand Smoke Exposure: Yes Recent Foreign Travel: No Contact w/other who traveled: No Recent Hopitalizations: No ([facility] - stroke May 2018 ) Recent Infectious Disease Expo: No Immunizations Up To Date Tetanus Booster (TDap): Less than 5yrs Date of Pneumonia Vaccine: Jun 09, 2008 Date of Influenza Vaccine: Jun 28, 2017 Seasonal Allergies Seasonal Allergies: Yes Past Medical History Surgeries: Section, Gallbladder, Orthopedic, Tubal Ligation Respiratory: COPD Cardiac: Chronic Edema/Swelling, High Cholesterol, Hypertension Neurological: Neuropathy, Stroke, Traumatic Brain Injury 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: No Sexually Transmitted Disease: No HIV/AIDS: No 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 Disorders: Denies Tubal Ligation Genitourinary: Renal Failure, UTI-Chronic Gastrointestinal: Gastroesophageal Reflux, Pancreatitis Musculoskeletal: Degenerate Disk Disease, Chronic Back Pain Endocrine: Diabetes, Insulin dep Loss of Vision: Denies Hearing Impairment: Denies Psychosocial: Sleep Difficulties, Anxiety, Depression Skin/Integumentary: Recent Skin Changes History of Blood Disorders: No Adverse Reaction to Blood Alvarado: No Family History Completed stroke 19 FATHER Congenital heart disease 19 FATHER Diabetes mellitus 19 FATHER Myocardial infarction 19 FATHER Psychosocial problem 19 FATHER (depression) 19 MOTHER (depression) Respiratory disorder 19 MOTHER (copd) Heart Disease, COPD, Diabetes, Psychiatric Problems, Stroke Review of Systems Constitutional: weakness, weight loss EENTM: No see HPI, No no symptoms reported, No ear discharge, No hearing loss, No ear pain, No blurred vision, No double vision, No eye pain, No tearing, No vision loss, No dental problems, No hoarseness, No mouth pain, No mouth swelling, No epistaxis, No nose congestion, No nose pain, No throat pain, No throat swelling, No other Respiratory: No no symptoms reported, No see HPI, No cough, No dyspnea on exertion, No hemoptysis, No orthopnea, No phlegm, No short of breath, No stridor, No wheezing, No other Cardiovascular: No no symptoms reported, No see HPI, No chest pain, No edema, No Hx of Intervention, No palpitations, No syncope, No vascular heart diseas, No other Gastrointestinal: loss of appetite, nausea, vomiting Genitourinary: decreased output, dysuria Musculoskeletal: muscle weakness Skin: No no symptoms reported, No see HPI, No change in color, No change in hair/nails, No dryness, No hx of skin cancer, No lesions, No lumps, No pruritus, No rash, No other Psychiatric/Neurological: Emotional Problems, Pre-Existing Deficit Physical Exam Vital Signs Vital Signs - First Documented 06/19/20 20:57 Temp 35.5 Pulse 69 Resp 16 B/P (MAP) 126/69 (88) Pulse Ox 99 O2 Delivery Room Air Capillary Refill : Less Than 3 Seconds Height, Weight, BMI Height: 5'2.00" Weight: 170lbs. 2.0oz. [id number]; 29.25 BMI Method:Stated General Appearance: No Apparent Distress HEENT: Pharynx Normal Neck: Supple Respiratory: Lungs Clear Cardiovascular: Regular Rate, Rhythm Gastrointestinal: Normal Bowel Sounds, Non Tender, Soft Rectal: Deferred Back: No CVA Tenderness Extremity: Non Tender, No Calf Tenderness, No Pedal Edema Neurologic/Psychiatric: Alert Skin: Warm/Dry Comments Laboratory Tests 06/19/20 21:12: White Blood Count 12.0H, Red Blood Count 4.64, Hemoglobin 13.7, Hematocrit 42, Mean Corpuscular Volume 90, Mean Corpuscular Hemoglobin 30, Mean Corpuscular Hemoglobin Concent 33, Red Cell Distribution Width 13.9, Platelet Count 405H, Mean Platelet Volume 10.2, Immature Granulocyte % (Auto) 2, Neutrophils (%) (Auto) 73, Lymphocytes (%) (Auto) 19, Monocytes (%) (Auto) 4, Eosinophils (%) (Auto) 1, Basophils (%) (Auto) 1, Neutrophils # (Auto) 8.8H, Lymphocytes # (Auto) 2.3, Monocytes # (Auto) 0.5, Eosinophils # (Auto) 0.1, Basophils # (Auto) 0.1, Immature Granulocyte # (Auto) 0.2H, Erythrocyte Sedimentation Rate 38H, Prothrombin Time 12.9, INR Comment 0.9, Activated Partial Thromboplast Time 28, D-Dimer 2.62H, Sodium Level 133L, Potassium Level 4.2, Chloride Level 100, Carbon Dioxide Level 19L, Anion Gap 14, Blood Urea Nitrogen 30H, Creatinine 2.14H, Estimat Glomerular Filtration Rate 24, BUN/Creatinine Ratio 14, Glucose L evel 116H, Calcium Level 9.5, Corrected Calcium 10.1, Magnesium Level 2.2, Total Bilirubin 0.3, Aspartate Amino Transf (AST/SGOT) 10, Alanine Aminotransferase (ALT/SGPT) 10, Alkaline Phosphatase 89, Lactate Dehydrogenase 135, Total Cre atine Kinase 8L, Creatine Kinase MB 0.8, Myoglobin 49.3, Troponin I < 0.028, C- Reactive Protein High Sensitivity 2.60H, Total Protein 7.1, Albumin 3.2, Procalcitonin 0.13H, TSH [facility] Testing 1.24, Monoscreen NEGATIVE 06/19/20 21:15: Coronavirus 2019 ([facility]) Negative 06/19/20 21:20: Lactic Acid Level 0.77 06/19/20 21:29: Coronavirus (COVID-19)(PCR) [Pending], Group A Streptococcus Screen NEGATIVE 06/19/20 21:39: Urine Color YELLOW, Urine Clarity CLOUDY, Urine pH 6.0, Urine Specific [place] 1 .025H, Urine Protein 3+H, Urine Glucose (UA) NEGATIVE, Urine Ketones 1+H, Urine Nitrite NEGATIVE, Urine Bilirubin 2+H, Urine Urobilinogen 0.2, Urine Leukocyte Esterase 1+H, Urine RBC (Auto) 2+H, Urine RBC NONE, Urine WBC TNTCH, Urine Squamous Epithelial Cells RARE, Urine Crystals NONE, Urine Bacteria LARGEH, Urine Casts NONE, Urine Mucus LARGEH, Urine Culture Indicated YES 06/20/20 05:18: White Blood Count 10.7, Red Blood Count 3.43L, Hemoglobin 10.2#L, Hematocrit 30L , Mean Corpuscular Volume 89, Mean Corpuscular Hemoglobin 30, Mean Corpuscular Hemoglobin Concent 34, Red Cell Distribution Width 13.6, Platelet Count 314, Mean Platelet Volume 10.5, Immature Granulocyte % (Auto) 2, Neutrophils (%) (Auto) 75, Lymphocytes (%) (Auto) 17, Monocytes (%) (Auto) 5, Eosinophils (%) (Auto) 1, Basophils (%) (Auto) 0, Neutrophils # (Auto) 8.0H, Lymphocytes # (Auto) 1.8, Monocytes # (Auto) 0.6, Eosinophils # (Auto) 0.1, Basophils # (Auto) 0.0, Immature Granulocyte # (Auto) 0.2H, Sodium Level 130L, Potassium Level 4.1, Chloride Level 101, Carbon Dioxide Level 17L, Anion Gap 12, Blood Urea Nitrogen 24H, Creatinine 1.61H, Estimat Glomerular Filtration Rate 34, BUN/Creatinine Ratio 15, Glucose Level 288H, Calcium Level 8.1L, Corrected Calcium 9.4, Total Bilirubin 0.2, Aspartate Amino Transf (AST/SGOT) 8, Alanine Aminotransferase (ALT/SGPT) 8, Alkaline Phosphatase 66, Total Protein 5.2L, Albumin 2.4L 06/20/20 11:20: Glucometer 344H 06/20/20 16:00: Glucometer 227H Microbiology 06/19/20 Urine Culture - Final, Complete NO GROWTH 06/19/20 Throat Culture - Preliminary, Resulted No Beta Strep isolated 06/19/20 Blood Culture - Preliminary, Resulted No growth Assessment/Plan Assessment and Plan 1. Acute UTI with Sepsis--admit on sepsis protocol with IV rocephin, lovenox for DVT prophylaxis 2. Acute on Chronic Renal Failure--hydrate and monitor BUN/Cr 3. Diabetes mellitus--start accuchecks with SSI 4. Hypertension--resume amlodopine 5. Anorexia--will do pepcid for GI prophylaxis and see if improves with treatment of infection Admission Diagnosis Admission Status: Inpatient Order (span 2 midnights) Reason for Inpatient Admission: Will require at least 48hrs of IV abx BAILEE LYLE DO Jun 20, 2020 17:20
[2020-06-20] MEDS: NS W/KCL 20 MEQ/L 1,000 ML IV SCH (17:50)
[2020-06-20 20:09] VITALS: BP 131/77
[2020-06-20] MEDS ORDERED: cefTRIAXone 1,000 MG/SWFI 10 ML IV PUSH IV SCH ×2 (21:00)
[2020-06-21] VITALS: BP 125/69
[2020-06-21 04:00] VITALS: BP_SYST 125; BP_SYST 181; BP_DIAS 73; BP_DIAS 80
[2020-06-21] MEDS: NS W/KCL 20 MEQ/L 1,000 ML IV SCH (04:24)
[2020-06-21 04:56] LABS: HEMOGLOBIN 9.9 g/dL (11.5-16.0); MEAN PLATELET VOLUME 10.2 fL (9.0-12.2); WHITE BLOOD COUNT 10.1 10^3/uL (4.3-11.0)
[2020-06-21 05:18] LABS: POTASSIUM 4.3 MMOL/L (3.6-5.0)
[2020-06-21 05:19] LABS: CALCIUM 7.9 MG/DL (8.5-10.1)
[2020-06-21 05:23] LABS: CREATININE SERUM 1.11 MG/DL (0.60-1.30)
[2020-06-21] MEDS: inSUlin ASPART (NovoLOG) 1 UNIT/0.01 ML (CHARGE PER UNIT) SC SCH ×2 (05:35→12:48)
[2020-06-21] MEDS: FAMOTIDINE 20 MG (PEPCID) TABLET PO SCH (08:08)
[2020-06-21 08:16] VITALS: BP 137/88
[2020-06-21] MEDS ORDERED: amLODIPine 5 MG (NORVASC) TAB PO SCH (09:00)
[2020-06-21] MEDS: ENOXAPARIN 40 MG/0.4 ML (LOVENOX) SYR SC SCH (10:44)
--- NOTE | 2020-06-21 14:12 | Physician Query Clarification ---
"Physician Query-General Query to Physician: The medical record reflects the following clinical scenario: History/Risk factors: UTI, Sepsis, Hyponatremia Clinical Findings: worsening confusion over last few days, weakness, GCS 14, NA 130 Treatment: LR IV Fluids, Ceftriaxone IV, Question: What condition best reflects the above clinical scenario? Please document response in the Progress notes or Discharge Summary. 1. Metabolic Encephalopathy 2. Acute Mental Status (as currently documented) 3. Other , with explanation of the clinical findings 4. Clinically undetermined, no explanation for the clinical findings Please remember a lack of response to the above will prompt a phone page by CDI/coding staff In responding to this query, please exercise your independent professional judgment. The purpose of this communication is to more accurately reflect the complexity of your patients condition. The fact that a question is asked does not imply that any particular answer is desired or expected. Thank you for timely response to this clarification. Argentina Jackson, MSN, RN RN Specialist-Clinical Doc Improvement CD -Health Info Mgmt Operations [address] [facility] t: [phone] | f: [phone] If you are unable to reach me at my extension, I may be working from home. Please contact me at [phone] PHYSICIAN RESPONSE: Based on the clinical findings in the record, please respond to the query above on this document as an addendum. Physician Response: Physician Response Altered Mental Status due to Sepsis If you have questions please contact: Plant Director: Ext: Thank you for your time and cooperation. Clinical Autographer/Plant Director This is a permanent part of the medical anahy rd ARGENTINA JACKSON Jun 21, 2020 14:12 MIRELA LYLE DO Jun 23, 2020 13:30"
--- NOTE | 2020-06-21 15:02 | Physician Query Clarification ---
"Physician Query-General Query to Physician: The medical record reflects the following clinical scenario: History/Risk factors: Acute on Chronic Renal Failure Clinical Findings: Na decreased to 130, increased to back up to 133 Treatment: Monitoring of Na, Correction with IVFs Question: What condition best reflects the above clinical scenario? Please document response in the Progress notes or Discharge Summary. 1.. Acute on Chronic Renal Failure with Hyponatremia 2. Acute on Chronic Renal Failure (as currently documented) 3. Other , with explanation of the clinical findings 4. Clinically undetermined, no explanation for the clinical findings Please remember a lack of response to the above will prompt a phone page by CDI/coding staff In responding to this query, please exercise your independent professional judgment. The purpose of this communication is to more accurately reflect the complexity of your patients condition. The fact that a question is asked does not imply that any particular answer is desired or expected. Thank you for timely response to this clarification. Argentina Jackson, MSN, RN RN Specialist-Clinical Doc Improvement CD -Health Info Mgmt Operations [address] [facility] t: [phone] | f: [phone] If you are unable to reach me at my extension, I may be working from home. Please contact me at [phone] PHYSICIAN RESPONSE: Based on the clinical findings in the record, please respond to the query above on this document as an addendum. Physician Response: Physician Response 1 If you have questions please contact: Cane Cutter: Ext: Thank you for your time and cooperation. Clinical Test Analyst/Cane Cutter This is a permanent part of the medical recor d ARGENTINA JACKSON Jun 21, 2020 15:02 MIRELA LYLE DO Jun 23, 2020 13:30"
--- NOTE | 2020-06-23 13:25 | Discharge Summary ---
Diagnosis/Chief Complaint Date of Admission Jun 19, 2020 at 22:20 Date of Discharge Jun 21, 2020 at 16:00 Discharge Date: Jun 21, 2020 Discharge Diagnosis 1. Acute UTI with Sepsis--urine culture negative but had already started antibiotics at home prior to admission 2. Acute on Chronic Renal Failure with Hyponatremia--BUN/Cr improved after aggressive IVFs for sepsis protocol 3. Altered Mental Status due to sepsis--appears back to her baseline on discharge 4. Uncontrolled Diabetes mellitus--insulin requiring--excerbated by sepsis 5. Hypertension--improved after starting amlodopine Reason Hospital Visit This is a 54 year old female with a history of recurrent UTIs who was brought to the emergency room with worsening weakness, refusal to eat and worsening confusi on. She was found to have a UTI with sepsis and worsening renal failure. She will be admitted on sepsis protocol with IV rocephin and blood and urine cultures pending. She is also a PUI as her granddaughter is a presumed positive. Discharge Summary Hospital Course Was the Problem List Reviewed?: Yes Hospital Course This is a 54 year old female with a history of recurrent UTIs who was brought to the emergency room with worsening weakness, refusal to eat and worsening confusion. She was found to have a UTI with sepsis and worsening renal failure. She was admitted on the sepsis protocol with IV rocephin. She is also a PUI as her granddaughter is a presumed positive. She had a negative rapid COVID and her PCR came back negative. The first 24hours after admission she continued with altered mental status not answering or responding to questions. By the day of discharge she was answering questions and appeared back to baseline on her mental status. Her urine and blood cultures were negative but she had started outpatient antibiotics prior to her admission. Her appetite remained poor until the day of discharge and at that time she was starting to eat and drink a little bit more. Her creatinine was 2.14 on admission but after aggressive IVFs her renal failure improved and her creatinine was down to 1.11 by discharge. Her WBC count was also down from 12,000 to 10,000 on discharge. Her blood pressure did spike during her hospital stay so she was started on amlodopine. Her blood sugar was also spiking during her hospital stay due to her sepsis--this was treated with sliding scale insulin. She will resume and finish augmentin on discharge for her UTI with sepsis and her family will let us know if her oral intake is not sufficient. I will see her in my office in 1 week. Labs Laboratory Tests 06/20/20 16:00: Glucometer 227H 06/20/20 20:13: Glucometer 199H 06/21/20 04:30: Red Blood Count 3.29L, Hemoglobin 9.9L, Hematocrit 29L, Sodium Level 133L, Carbon Dioxide Level 17L, Glucose Level 161H, Calcium Level 7.9L 06/21/20 11:42: Glucometer 224H Procedures None. Discharge Physical Examination Allergies: Coded Allergies: codeine (Verified Allergy, Mild, ITCHING, Pt has received Lortab in the past, 04/09/20) Sulfa (Sulfonamide Antibiotics) (Verified Allergy, Unknown, HIVES, 04/09/20) Vitals & I&Os Vital Signs Date Time Temp Pulse Resp B/P (MAP) Pulse Ox O2 Delivery O2 Flow Rate FiO2 06/21/20 16:27 06/21/20 12:25 79 06/21/20 08:16 36.0 20 99 Room Air General Appearance: Alert, No Acute Distress Respiratory: Clear to Auscultation Cardiovascular: Regular Rate Abdominal: Normal Bowel Sounds, Soft, No Tenderness Extremities: No Clubbing, No Cyanosis, No Edema Psych/Mental Status: Mood NL Discharge Home Medications Reviewed and agree with Discharge Medication list on patient's Discharge Ins truction sheet Instructions to Patient/Family Please see electronic discharge instructions given to patient. MIRELA LYLE DO Jun 23, 2020 13:25
== END 2020-06-21 16:00 | disposition home or self-care (01) ==
LOC: EDUNIT# 20:57 → ER 20:58 → 4TH 20:59 → UNDOADMIN 22:20 → UNDODISIN 06-21 16:00
PROVIDERS: ADMIT Family Medicine; ATTEND Family Medicine
DX: A41.9 Sepsis, unspecified organism (principal); N39.0 Urinary tract infection, site not specified; N17.9 Acute kidney failure, unspecified; E78.00 Pure hypercholesterolemia, unspecified; E11.40 Type 2 diabetes mellitus with diabetic neuropathy, unspecified; K21.9 Gastro-esophageal reflux disease without esophagitis; M19.90 Unspecified osteoarthritis, unspecified site; G89.29 Other chronic pain; Z20.822 Contact with and (suspected) exposure to COVID-19; M54.9 Dorsalgia, unspecified; F41.9 Anxiety disorder, unspecified; F32.9 Major depressive disorder, single episode, unspecified; E86.0 Dehydration; R63.0 Anorexia; N18.9 Chronic kidney disease, unspecified; I12.9 Hypertensive chronic kidney disease with stage 1 through stage 4 chronic kidney disease, or unspecified chronic kidney disease; Z88.5 Allergy status to narcotic agent; Z88.2 Allergy status to sulfonamides; Z79.4 Long term (current) use of insulin; Z87.891 Personal history of nicotine dependence
CPT/HCPCS: 36415; 51702; 70450; 71045; 80048; 80053; 81000; 82550; 82553; 82962; 83605; 83615; 83735; 83874; 84145; 84443; 84484; 85025; 85027; 85379; 85610; 85652; 85730; 86141; 86308; 87040; 87088; 87430; 87635; 87804; 90686; 93005; 93041; G0378

== ENCOUNTER 2020-08-08 23:48 | Emergency (ER) | payer MEDICARE, MEDICAID ==
[~2020-08-08 23:48] MED LIST changes: +AMOX1TAB11 PO; +DIPH25CA79 PO; +FAMO40TA6 PO; +INSU100I48 SC; +LISI10TA25 PO; +MELA5TAB14 PO
--- NOTE | 2020-08-09 00:22 | ED General ---
General Chief Complaint: Cardiac/General Problems Stated Complaint: LOW BLOOD PRESSURE,LETHARGIC Source of Information: Patient, Caregiver Exam Limitations: Physical Impairments History of Present Illness Date Seen by Provider: Aug 08, 2020 Time Seen by Provider: 23:55 Initial Comments Here with report of low blood pressure and what appears to be a syncopal episode. EMS was summoned to her house by patient's daughter who states the patient was unresponsive. She did have normal blood sugar (has history of labile blood sugars and anoxic brain injury secondary to diabetic coma) but did have low blood pressure in the range of 60s systolic. EMS arrived and found the same with blood sugar in the 120s. They did initiate IV and 500 mL of normal saline bolus via pressure bag. Patient responded quite well to have normal blood pressures and then her normal mentation. She does have the anoxic brain injury and has disorder related to that. Right now she is answering simple questions appropriately and is requesting a warm blanket and the TV remote. She denies any distress or concerns currently. Family does note that she does have frequent history of urinary tract infection and she typically only drinks soda pop. Does not have seizure disorder history. Does have history with labile blood sugars. Timing/Duration: 1/2 Hour Severity: Moderate, Severe Associated Systoms: No Fever/Chills, No Nausea/Vomiting, No Shortness of Air; Syncope Allergies and Home Medications Allergies Coded Allergies: codeine (Verified Allergy, Mild, ITCHING, Pt has received Lortab in the past, 04/09/20) Sulfa (Sulfonamide Antibiotics) (Verified Allergy, Unknown, HIVES, 04/09/20) Home Medications Acetaminophen 500 Mg Tablet, 500 MG PO TID PRN for PAIN-MILD, (Reported) Amoxicillin/Potassium Clav 1 Each Tablet, 1 EA PO BID, (Reported) FILLED 06-14-2020 #14/7 DAY SUPPLY Calcitriol 0.25 Mcg Capsule, 0.25 MG PO DAILY, (Reported) LAST FILLED 02-25-2020 #30/30 DAY SUPPLY Duloxetine HCl 60 Mg Capsule.dr, 60 MG PO DAILY, (Reported) LAST FILLED 04-06-2020 #30/30 DAY SUPPLY Famotidine 40 Mg Tablet, 40 MG PO DAILY, (Reported) Insulin Detemir 100 Unit/1 Ml Insuln.pen, 45 UNITS SQ DAILY PRN for HYPERGLYCEMIA, (Reported) Insulin Lispro 100 Unit/1 Ml Insuln.pen, UNITS SC SLIDING/SCALE, (Reported) Melatonin 5 Mg Tablet, 5 MG PO HS PRN for SLEEP, (Reported) Ondansetron HCl 4 Mg Tablet, 4 MG PO Q6H PRN for NAUSEA/VOMITING-1ST LINE, (Reported) Patient Home Medication List Home Medication List Reviewed: Yes Review of Systems Review of Systems Constitutional: see HPI; No chills, No fever EENTM: no symptoms reported Respiratory: no symptoms reported Cardiovascular: see HPI, syncope, other (Bradycardia initially per EMS) Gastrointestinal: No nausea, No vomiting Genitourinary: see HPI Review of systems limited due to underlying anoxic brain injury with much decreased mental capacity. Past Ytgbiue-Leenmq-Itjkct Hx Past Med/Social Hx: Reviewed Nursing Past Med/Soc Hx Patient Social History Alcohol Use: Denies Use Drug of Choice: opioids Smoking Status: Former Smoker Type Used: Cigars, Cigarettes Former Smoker, Quit: May 23, 2018 2nd Hand Smoke Exposure: Yes Recent Hopitalizations: No ([facility] - stroke May 2018 ) Immunizations Up To Date Tetanus Booster (TDap): Less than 5yrs Date of Pneumonia Vaccine: Jun 09, 2008 Date of Influenza Vaccine: Jun 28, 2017 Seasonal Allergies Seasonal Allergies: Yes Past Medical History Surgeries: Yes (Left breast cyst, x2, ORIF Right ankle; PORT RIGHT CHEST) Breast, Section, Gallbladder, Orthopedic, Tubal Ligation Respiratory: Yes (CPAP not used after last sleep study) Sleep Apnea, COPD Cardiac: Yes Chronic Edema/Swelling, High Cholesterol, Hypertension Neurological: Yes (HYPOGLYCEMIC ENCEPHALOPATHY) Neuropathy, Stroke, Traumatic Brain Injury 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 Disorders: No 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 Sexually Transmitted Disease: No HIV/AIDS: No Genitourinary: Yes (NO DIALYSIS) Renal Failure, UTI-Chronic Gastrointestinal: Yes Gastroesophageal Reflux, Pancreatitis Musculoskeletal: Yes (right ankle fx with steel plate) Degenerate Disk Disease, Chronic Back Pain Endocrine: Yes Diabetes, Insulin dep HEENT: No Loss of Vision: Denies Hearing Impairment: Denies Cancer: No Psychosocial: Yes (DGTR STATES PT HAS ADDICTIVE PERSONALITY) Sleep Difficulties, Anxiety, Depression Integumentary: Yes (FREQUENT CELLULITIS--LEGS) Recent Skin Changes Blood Disorders: No Adverse Reaction/Blood Tranf: No Family Medical History Reviewed Nursing Family Hx Completed stroke 19 FATHER Congenital heart disease 19 FATHER Diabetes mellitus 19 FATHER Myocardial infarction 19 FATHER Psychosocial problem 19 FATHER (depression) 19 MOTHER (depression) Respiratory disorder 19 MOTHER (copd) Heart Disease, COPD, Diabetes, Psychiatric Problems, Stroke Physical Exam Vital Signs Vital Signs - First Documented 08/08/20 23:49 Temp 35.9 Pulse 72 Resp 18 B/P (MAP) 130/66 (87) O2 Delivery Room Air Capillary Refill : Height, Weight, BMI Height: 5'2.00" Weight: 170lbs. 2.0oz. [id number]; 29.25 BMI Method:Stated General Appearance: No Apparent Distress, WD/WN HEENT: PERRL/EOMI, Pharynx Normal Neck: Non Tender, Supple Respiratory: Lungs Clear, Normal Breath Sounds Cardiovascular: Regular Rate, Rhythm, No Murmur Gastrointestinal: Non Tender, Soft Back: Normal Inspection, No CVA Tenderness, No Vertebral Tenderness Extremity: Normal Range of Motion, Non Tender Neurologic/Psychiatric: Alert, Normal Mood/Affect, Other (Oriented to self. Unable to determine orientation on place and time due to patient's mental deficit.) Skin: Normal Color, Warm/Dry Procedures/Interventions Date of ETT Placement: Jun 03, 2018 Time of ETT Placement: 1310 Progress/Results/Core Measures Suspected Sepsis SIRS Temperature: Pulse: Respiratory Rate: Laboratory Tests 08/09/20 00:01: White Blood Count 12.0H Blood Pressure / Mean: Laboratory Tests 08/09/20 00:01: Creatinine 1.60H, Platelet Count 254, Total Bilirubin 0.6 Results/Orders Lab Results Laboratory Tests Test 08/09/20 00:01 08/09/20 00:15 Range/Units White Blood Count 12.0 H 4.3-11.0 10^3/uL Red Blood Count 3.56 L 3.80-5.11 10^6/uL Hemoglobin 10.6 L 11.5-16.0 g/dL Hematocrit 34 L 35-52 % Mean Corpuscular Volume 94 80-99 fL Mean Corpuscular Hemoglobin 30 25-34 pg Mean Corpuscular Hemoglobin Concent 32 32-36 g/dL Red Cell Distribution Width 13.7 10.0-14.5 % Platelet Count 254 130-400 10^3/uL Mean Platelet Volume 10.6 9.0-12.2 fL Immature Granulocyte % (Auto) 0 % Neutrophils (%) (Auto) 66 42-75 % Lymphocytes (%) (Auto) 27 12-44 % Monocytes (%) (Auto) 5 0-12 % Eosinophils (%) (Auto) 2 0-10 % Basophils (%) (Auto) 0 0-10 % Neutrophils # (Auto) 7.9 H 1.8-7.8 10^3/uL Lymphocytes # (Auto) 3.3 1.0-4.0 10^3/uL Monocytes # (Auto) 0.6 0.0-1.0 10^3/uL Eosinophils # (Auto) 0.2 0.0-0.3 10^3/uL Basophils # (Auto) 0.0 0.0-0.1 10^3/uL Immature Granulocyte # (Auto) 0.1 0.0-0.1 10^3/uL Sodium Level 140 135-145 MMOL/L Potassium Level 3.4 L 3.6-5.0 MMOL/L Chloride Level 109 H 98-107 MMOL/L Carbon Dioxide Level 22 21-32 MMOL/L Anion Gap 9 5-14 MMOL/L Blood Urea Nitrogen 19 H 7-18 MG/DL Creatinine 1.60 H 0.60-1.30 MG/DL Estimat Glomerular Filtration Rate 34 BUN/Creatinine Ratio 12 Glucose Level 98 70-105 MG/DL Calcium Level 8.0 L 8.5-10.1 MG/DL Corrected Calcium 8.7 8.5-10.1 MG/DL Total Bilirubin 0.6 0.1-1.0 MG/DL Aspartate Amino Transf (AST/SGOT) 9 5-34 U/L Alanine Aminotransferase (ALT/SGPT) 14 0-55 U/L Alkaline Phosphatase 76 40-136 U/L C-Reactive Protein High Sensitivity 0.09 0.00-0.50 MG/DL Total Protein 6.0 L 6.4-8.2 GM/DL Albumin 3.1 L 3.2-4.5 GM/DL Urine Color YELLOW Urine Clarity CLEAR Urine pH 8.0 5-9 Urine Specific [place] 1.020 1.016-1.022 Urine Protein 3+ H NEGATIVE Urine Glucose (UA) 3+ H NEGATIVE Urine Ketones NEGATIVE NEGATIVE Urine Nitrite NEGATIVE NEGATIVE Urine Bilirubin NEGATIVE NEGATIVE Urine Urobilinogen 0.2 < = 1.0 MG/DL Urine Leukocyte Esterase TRACE H NEGATIVE Urine RBC (Auto) NEGATIVE NEGATIVE Urine RBC NONE /HPF Urine WBC 10-25 H /HPF Urine Squamous Epithelial Cells 25-50 H /HPF Urine Crystals NONE /LPF Urine Bacteria NEGATIVE /HPF Urine Casts NONE /LPF Urine Mucus NEGATIVE /LPF Urine Culture Indicated NO My Orders Orders - SOLITARIO MCFARLAND MD Cbc With Automated Diff (08/09/20 00:05) Comprehensive Metabolic Panel (08/09/20 00:05) Hs C Reactive Protein (08/09/20 00:05) Ua Culture If Indicated (08/09/20 00:17) Straight Cath For Spec.-Adult (08/09/20 00:17) Ekg Tracing (08/09/20 00:17) Vital Signs/I&O 08/08/20 23:49 Temp 35.9 Pulse 72 Resp 18 B/P (MAP) 130/66 (87) O2 Delivery Room Air Capillary Refill : Progress Note : Progress Note Seen and evaluated on arrival by EMS. Patient is at baseline currently without any distress or complaint. We will check basic labs and UA given her history and monitor for changes. Monitor patient. 0150: No significant findings or abnormalities noted on labs or UA. Patient has had uneventful stay in the emergency department. She has rested peacefully and is answering questions appropriately. She would like to go home. Discharged home with return precautions. Patient verbalized understanding of instructions and agreement with plan. ECG Initial ECG Impression Date: Aug 09, 2020 Initial ECG Impression Time: 00:04 Initial ECG Rate: 56 Initial ECG Rhythm: Normal Sinus Comment Sinus rhythm with left axis deviation. Left ventricular hypertrophy. No evidence of ST elevation AR. Similar to previous of 06/19/2020. Interpreted by me. Departure Impression Primary Impression: Syncope Qualified Codes: R55 - Syncope and collapse Disposition: 01 HOME, SELF-CARE Condition: Improved Departure-Patient Inst. Decision time for Depature: 01:57 Referrals: MIRELA LYLE DO (PCP/Family) Primary Care Physician Patient Instructions: Syncope (Fainting) (DC) Add. Discharge Instructions: All discharge instructions reviewed with patient and/or family. Voiced understanding. Continue home medications as previously prescribed. Continue to monitor and control blood sugars. Drink plenty of fluids. Follow-up with your doctor for recheck and further evaluation. Return for worse pain, fever, vomiting, w eakness, breathing problems, repeat events encountered tonight or other concerns as needed. SOLITARIO MCFARLAND MD Aug 09, 2020 00:22
[2020-08-09 00:25] LABS: BILIRUBIN,URINE NEGATIVE (NEGATIVE); CLARITY,URINE CLEAR; COLOR,URINE YELLOW; GLUCOSE, URINE (UA) 3+ (NEGATIVE); KETONES,URINE NEGATIVE (NEGATIVE); LEUKOCYTE ESTERASE ,URINE TRACE (NEGATIVE); NITRITE,URINE NEGATIVE (NEGATIVE); PROTEIN,URINE 3+ (NEGATIVE)
[2020-08-09 00:28] LABS: BASOPHILS % (AUTO) 0 % (0-10); EOSINOPHILS # (AUTO) 0.2 10^3/uL (0.0-0.3); EOSINOPHILS % (AUTO) 2 % (0-10); HEMATOCRIT 34 % (35-52); HEMOGLOBIN 10.6 g/dL (11.5-16.0); LYMPHOCYTES # (AUTO) 3.3 10^3/uL (1.0-4.0); LYMPHOCYTES % (AUTO) 27 % (12-44); MEAN CORPUSCULAR HEMOGLOBIN 30 pg (25-34); MEAN CORPUSCULAR HGB CONC 32 g/dL (32-36); MEAN CORPUSCULAR VOLUME 94 fL (80-99); MEAN PLATELET VOLUME 10.6 fL (9.0-12.2); MONOCYTES # (AUTO) 0.6 10^3/uL (0.0-1.0); MONOCYTES % (AUTO) 5 % (0-12); NEUTROPHILS # (AUTO) 7.9 10^3/uL (1.8-7.8); NEUTROPHILS % (AUTO) 66 % (42-75); PLATELET COUNT 254 10^3/uL (130-400)
[2020-08-09 00:33] LABS: ALBUMIN 3.1 GM/DL (3.2-4.5); POTASSIUM 3.4 MMOL/L (3.6-5.0)
[2020-08-09 00:37] LABS: BILIRUBIN,TOTAL 0.6 MG/DL (0.1-1.0)
[2020-08-09 00:39] LABS: CREATININE SERUM 1.6 MG/DL (0.60-1.30)
[2020-08-09 00:56] LABS: BACTERIA,URINE NEGATIVE /HPF; SQUAMOUS EPITHELIAL CELL,UR 25-50 /HPF
[2020-08-09 02:48] VITALS: BP 110/68
== END 2020-08-09 02:48 | disposition home or self-care (01) ==
LOC: EDUNIT# 23:48 → ER 23:49
DX: R55 Syncope and collapse (principal); F41.9 Anxiety disorder, unspecified; E11.9 Type 2 diabetes mellitus without complications; F32.9 Major depressive disorder, single episode, unspecified; K21.9 Gastro-esophageal reflux disease without esophagitis; Z88.2 Allergy status to sulfonamides; Z88.5 Allergy status to narcotic agent; Z87.891 Personal history of nicotine dependence; Z86.73 Personal history of transient ischemic attack (TIA), and cerebral infarction without residual deficits; Z82.49 Family history of ischemic heart disease and other diseases of the circulatory system; Z79.4 Long term (current) use of insulin
CPT/HCPCS: 36415; 51701; 80053; 81000; 85025; 86141; 93005

== ENCOUNTER 2020-10-24 14:43 | Outpatient (RCR) | payer MEDICARE, MEDICAID ==
[~2020-10-24 14:43] MED LIST changes: -NABU-90 PO; +NABU-95 PO
== END 2021-01-22 | disposition home or self-care (01) ==
LOC: SDC 14:43
PROVIDERS: ATTEND Family Medicine
DX: E11.22 Type 2 diabetes mellitus with diabetic chronic kidney disease (principal); N18.2 Chronic kidney disease, stage 2 (mild); D64.9 Anemia, unspecified

== ENCOUNTER 2021-01-13 22:05 | Emergency (ER) | payer MEDICARE, MEDICAID ==
[~2021-01-13] VITALS: Ht 167.7 cm; Wt 72.7 kg
--- NOTE | 2021-01-13 22:51 | ED Lower Extremity ---
General Chief Complaint: Lower Extremity Stated Complaint: FALL / LEG PAIN Source: patient, EMS Exam Limitations: other (TBI patient) History of Present Illness Date Seen by Provider: Jan 13, 2021 Time Seen by Provider: 22:15 Initial Comments 55-year-old female with past medical history of a TBI and DM1 coming in via EMS from home due to a fall as well as left-sided leg pain. Per EMS, they got report that she walked outside to smoke, tripped and fell down one step, and then was having L hip pain. Daughter called EMS at that time. The patient is only verbal at sometimes and does not really answer questions and further elements of the history and physical are unable to be obtained. Reportedly her mental baseline fluctuates significantly on a daily basis from normal conversation to not speaking at all. Of note, she is actively being treated for a UTI since Friday and is on Augmentin and Doxycycline. She takes 5 units of Levemir nightly and did not get it last night. She is otherwise on a sliding scale for insulin. Daughter says that she would want to be DNR/DNI if not reversible, but would be intubated for a procedure. Allergies and Home Medications Allergies Coded Allergies: codeine (Verified Allergy, Mild, ITCHING, Pt has received Lortab in the past, 04/09/20) Sulfa (Sulfonamide Antibiotics) (Verified Allergy, Unknown, HIVES, 04/09/20) Home Medications Acetaminophen 500 Mg Tablet, 500 MG PO TID PRN for PAIN-MILD, (Reported) Amoxicillin/Potassium Clav 1 Each Tablet, 1 EA PO BID, (Reported) FILLED 06-14-2020 #14/7 DAY SUPPLY Calcitriol 0.25 Mcg Capsule, 0.25 MG PO DAILY, (Reported) LAST FILLED 02-25-2020 #30/30 DAY SUPPLY Duloxetine HCl 60 Mg Capsule.dr, 60 MG PO DAILY, (Reported) LAST FILLED 04-06-2020 #30/30 DAY SUPPLY Famotidine 40 Mg Tablet, 40 MG PO DAILY, (Reported) Insulin Detemir 100 Unit/1 Ml Insuln.pen, 45 UNITS SQ DAILY PRN for HYPERGLYCEMIA, (Reported) Insulin Lispro 100 Unit/1 Ml Insuln.pen, UNITS SC SLIDING/SCALE, (Reported) Melatonin 5 Mg Tablet, 5 MG PO HS PRN for SLEEP, (Reported) Ondansetron HCl 4 Mg Tablet, 4 MG PO Q6H PRN for NAUSEA/VOMITING-1ST LINE, (Reported) Patient Home Medication List Home Medication List Reviewed: Yes Review of Systems Constitutional: no symptoms reported Elements of the review of systems are unable to be obtained due to the patient's mental status with her TBI Past Mssguur-Wxrffb-Truuff Hx Immunizations Up To Date Tetanus Booster (TDap): Unknown Seasonal Allergies Seasonal Allergies: Yes Past Medical History Surgeries: Yes (Left breast cyst, x2, ORIF Right ankle; PORT RIGHT CHEST) Breast, Section, Gallbladder, Orthopedic, Tubal Ligation Respiratory: Yes (CPAP not used after last sleep study) Sleep Apnea, COPD Cardiac: Yes Chronic Edema/Swelling, High Cholesterol, Hypertension Neurological: Yes (HYPOGLYCEMIC ENCEPHALOPATHY) Neuropathy, Stroke, Traumatic Brain Injury 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 Disorders: No 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 Disorders: 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 Sexually Transmitted Disease: No HIV/AIDS: No Genitourinary: Yes (NO DIALYSIS) Renal Failure, UTI-Chronic Gastrointestinal: Yes Gastroesophageal Reflux, Pancreatitis Musculoskeletal: Yes (right ankle fx with steel plate) Degenerate Disk Disease, Chronic Back Pain Endocrine: Yes Diabetes, Insulin dep HEENT: No Loss of Vision: Denies Hearing Impairment: Denies Cancer: No Psychosocial: Yes (DGTR STATES PT HAS ADDICTIVE PERSONALITY) Sleep Difficulties, Anxiety, Depression Integumentary: Yes (FREQUENT CELLULITIS--LEGS) Recent Skin Changes Blood Disorders: No Adverse Reaction/Blood Tranf: No Family Medical History Completed stroke 19 FATHER Congenital heart disease 19 FATHER Diabetes mellitus 19 FATHER Myocardial infarction 19 FATHER Psychosocial problem 19 FATHER (depression) 19 MOTHER (depression) Respiratory disorder 19 MOTHER (copd) Heart Disease, COPD, Diabetes, Psychiatric Problems, Stroke Physical Exam Vital Signs Vital Signs - First Documented 01/13/21 22:07 Temp 37.1 Pulse 73 Resp 18 B/P (MAP) 135/76 (95) Pulse Ox 97 O2 Delivery Room Air Capillary Refill : Height, Weight, BMI Height: 5'2.00" Weight: 170lbs. 2.0oz. 77.656031ku; 29.25 BMI Method:Stated General Appearance: WD/WN, no apparent distress HEENT: PERRL/EOMI, normal ENT inspection, TMs normal, pharynx normal Neck: non-tender, full range of motion, supple, normal inspection Cardiovascular: regular rate, rhythm, no edema, no murmur Respiratory: chest non-tender, lungs clear, normal breath sounds, no respiratory distress, no accessory muscle use Gastrointestinal: normal bowel sounds, non tender; No distended, No guarding, No rebound Back: normal inspection, no CVA tenderness, no vertebral tenderness Hips: right hip non-tender (Pain with ranging of left hip); bilateral hip normal inspection, bilateral hip normal range of motion, bilateral hip no evidence of injury, bilateral hip deformity Neurologic/Tendon: normal motor functions Neurologic/Psychiatric: no motor/sensory deficits, alert, normal mood/affect Skin: normal color, warm/dry Moving all extremities equally, only time she complained of pain was with moving her left hip, no deformities, bruising, spinal tenderness Procedures/Interventions Date of ETT Placement: Jun 03, 2018 Time of ETT Placement: 1310 Progress/Results/Core Measures Results/Orders Lab Results Laboratory Tests Test 01/14/21 02:08 01/14/21 02:28 01/14/21 04:50 01/14/21 07:58 Range/Units SARS-CoV-2 RNA (RT-PCR) Not Detected Not Detecte White Blood Count 15.3 H 4.3-11.0 10^3/uL Red Blood Count 3.82 3.80-5.11 10^6/uL Hemoglobin 11.3 L 11.5-16.0 g/dL Hematocrit 34 L 35-52 % Mean Corpuscular Volume 89 80-99 fL Mean Corpuscular Hemoglobin 30 25-34 pg Mean Corpuscular Hemoglobin Concent 33 32-36 g/dL Red Cell Distribution Width 12.3 10.0-14.5 % Platelet Count 430 H 130-400 10^3/uL Mean Platelet Volume 10.5 9.0-12.2 fL Immature Granulocyte % (Auto) 1 % Neutrophils (%) (Auto) 87 H 42-75 % Lymphocytes (%) (Auto) 7 L 12-44 % Monocytes (%) (Auto) 5 0-12 % Eosinophils (%) (Auto) 0 0-10 % Basophils (%) (Auto) 0 0-10 % Neutrophils # (Auto) 13.2 H 1.8-7.8 10^3/uL Lymphocytes # (Auto) 1.1 1.0-4.0 10^3/uL Monocytes # (Auto) 0.8 0.0-1.0 10^3/uL Eosinophils # (Auto) 0.1 0.0-0.3 10^3/uL Basophils # (Auto) 0.0 0.0-0.1 10^3/uL Immature Granulocyte # (Auto) 0.1 0.0-0.1 10^3/uL Neutrophils % (Manual) 88 % Lymphocytes % (Manual) 6 % Monocytes % (Manual) 3 % Band Neutrophils 3 % Blood Morphology Comment NORMAL Sodium Level 142 135-145 MMOL/L Potassium Level 4.4 3.6-5.0 MMOL/L Chloride Level 106 98-107 MMOL/L Carbon Dioxide Level 15 L 21-32 MMOL/L Anion Gap 21 H 5-14 MMOL/L Blood Urea Nitrogen 55 H 7-18 MG/DL Creatinine 2.13 H 0.60-1.30 MG/DL Estimat Glomerular Filtration Rate 24 BUN/Creatinine Ratio 26 Glucose Level 116 H 70-105 MG/DL Calcium Level 9.3 8.5-10.1 MG/DL Urine Color YELLOW Urine Clarity CLEAR Urine pH 7.5 5-9 Urine Specific [place] 1.015 L 1.016-1.022 Urine Protein 3+ H NEGATIVE Urine Glucose (UA) NEGATIVE NEGATIVE Urine Ketones TRACE H NEGATIVE Urine Nitrite NEGATIVE NEGATIVE Urine Bilirubin NEGATIVE NEGATIVE Urine Urobilinogen 0.2 < = 1.0 MG/DL Urine Leukocyte Esterase TRACE H NEGATIVE Urine RBC (Auto) TRACE-I NEGATIVE Urine RBC RARE /HPF Urine WBC 25-50 H /HPF Urine Squamous Epithelial Cells 5-10 /HPF Urine Crystals NONE /LPF Urine Bacteria TRACE /HPF Urine Casts NONE /LPF Urine Mucus SMALL H /LPF Urine Culture Indicated YES Glucometer 194 H 70-110 MG/DL My Orders Orders - SUSANNE ALVARADO MD Pelvis With Left Hip 2-3 Views (01/14/21 00:01) Basic Metabolic Panel (01/14/21 01:39) Cbc With Automated Diff (01/14/21 01:39) Covid 19 Inhouse Test (01/14/21 01:39) Morphine Injection (Morphine Injection (01/14/21 02:00) Ct Head Wo (01/14/21 02:22) Catheter(Urinary) Insert & Ass 03,15 (01/14/21 02:22) Manual Differential (01/14/21 02:28) Ua Culture If Indicated (01/14/21 02:39) Fentanyl Inj (Sublimaze Injection) (01/14/21 03:15) Ed Iv/Invasive Line Start (01/14/21 04:40) Lactated Ringers (Lr 1000 Ml Iv Solution (01/14/21 04:45) Urine Culture (01/14/21 04:50) Ceftriaxone (Rocephin) (01/14/21 05:30) Lactated Ringers (Lr 1000 Ml Iv Solution (01/14/21 06:15) Medications Given in ED Vital Signs/I&O 01/13/21 01/14/21 22:07 09:00 Temp 37.1 Pulse 73 85 Resp 18 16 B/P (MAP) 135/76 (95) 140/80 Pulse Ox 97 97 O2 Delivery Room Air Room Air Progress Progress Note : Progress Note 55-year-old female with above history coming in after a reported fall with left hip pain. Initially on asking her she said she is not in pain at all. The only time she complained was with moving her left hip. Thorough physical exam and obtained otherwise with no tenderness or deformities anywhere else. Her mental baseline fluctuates but she is within range per her daughter. Eyes open spontaneously, verbally answering some yes/no questions, and moving extremities on command. Does seem somewhat confused. ABCs intact and vitals stable. We will get an x-ray of her pelvis and left hip. I discussed the x-ray with the radiologist on-call and there is concern for a left femoral neck fracture. An IV was placed at that time and basic labs were obtained as well as she was given morphine for pain control. CT head ordered given she has a TBI and is difficult to assess her mental status, especially given she had a fall. The CT head was negative. UA ordered with concerns for UTI which was a potential cause of her fall. She was given IV ceftriaxone. Creatinine slightly elevated so given 2L IVF with good response out of blevins. Unfortunately we do not have an orthopedist on-call regarding her femoral neck fracture and will have to transfer her out. 01:50 called [facility], they are on diversion. 01:51 [facility] no beds available. 01:[address] [facility] [address] Win Walker accepted her for transfer. Departure Impression Primary Impression: Femoral neck fracture Qualified Codes: S72.002A - Fracture of unspecified part of neck of left femur, initial encounter for closed fracture Additional Impressions: IDDM (insulin dependent diabetes mellitus) Hx of traumatic brain injury Disposition: XFER SHT-TRM HOSP Condition: Stable Transfer Transfer Reason: Exceeds level of care Time Spoke to Accepting Phy: 02:00 Transfer Progress Notes Discussed with multiple hospitals in the region and unfortunately none of them are able to take the patient. [facility] had an accepting physician Dr. Walker. Transfer Time: 09:00 (on 01/14/21) Transfer Facility: [facility] Method of Transfer: EMS Departure-Patient Inst. Referrals: MIRELA LYLE DO (PCP/Family) Primary Care Physician SUSANEN ALVARADO MD Jan 13, 2021 22:51
[2021-01-14] MEDS ORDERED: morphine INJ 10 MG/ML 1ML (SYR OR VIAL) IVP ONE (02:00)
[2021-01-14 02:35] LABS: BASOPHILS % (AUTO) 0 % (0-10); EOSINOPHILS # (AUTO) 0.1 10^3/uL (0.0-0.3); EOSINOPHILS % (AUTO) 0 % (0-10); HEMATOCRIT 34 % (35-52); HEMOGLOBIN 11.3 g/dL (11.5-16.0); LYMPHOCYTES # (AUTO) 1.1 10^3/uL (1.0-4.0); LYMPHOCYTES % (AUTO) 7 % (12-44); MEAN CORPUSCULAR HEMOGLOBIN 30 pg (25-34); MEAN CORPUSCULAR HGB CONC 33 g/dL (32-36); MEAN CORPUSCULAR VOLUME 89 fL (80-99); MEAN PLATELET VOLUME 10.5 fL (9.0-12.2); MONOCYTES # (AUTO) 0.8 10^3/uL (0.0-1.0); MONOCYTES % (AUTO) 5 % (0-12); NEUTROPHILS # (AUTO) 13.2 10^3/uL (1.8-7.8); NEUTROPHILS % (AUTO) 87 % (42-75); PLATELET COUNT 430 10^3/uL (130-400); WHITE BLOOD COUNT 15.3 10^3/uL (4.3-11.0)
[2021-01-14 02:45] LABS: POTASSIUM 4.4 MMOL/L (3.6-5.0)
[2021-01-14 02:46] LABS: CALCIUM 9.3 MG/DL (8.5-10.1)
[2021-01-14 02:48] LABS: BAND NEUTROPHILS 3 %; LYMPHOCYTES % (MANUAL) 6 %; MONOCYTES % (MANUAL) 3 %; NEUTROPHILS % (MANUAL) 88 %; RBC MORPH NORMAL
[2021-01-14 02:51] LABS: CREATININE SERUM 2.13 MG/DL (0.60-1.30)
[2021-01-14] MEDS ORDERED: fentaNYL INJ 100 MCG/2 ML AMP IVP PRN (03:15)
[2021-01-14] MEDS ORDERED: LACTATED RINGERS 1,000 ML IV ONE ×2 (04:45→06:15)
[2021-01-14 05:02] LABS: BILIRUBIN,URINE NEGATIVE (NEGATIVE); CLARITY,URINE CLEAR; COLOR,URINE YELLOW; GLUCOSE, URINE (UA) NEGATIVE (NEGATIVE); KETONES,URINE TRACE (NEGATIVE); LEUKOCYTE ESTERASE ,URINE TRACE (NEGATIVE); NITRITE,URINE NEGATIVE (NEGATIVE); PH,URINE 7.5 (5-9); PROTEIN,URINE 3+ (NEGATIVE)
[2021-01-14 05:16] LABS: BACTERIA,URINE TRACE /HPF; RBC,URINE RARE /HPF; WBC,URINE 25-50 /HPF
[2021-01-14] MEDS ORDERED: cefTRIAXone 1,000 MG in WATER (STERILE) FOR INJECTION 10 ML IV ONE (05:30)
--- NOTE | 2021-01-14 07:04 | Diagnostic Imaging Report ---
EXAM: Pelvis and left hip at 12:18 AM INDICATION: Fell. Hip pain. TECHNIQUE: Single AP view of the pelvis, AP and lateral views of the left hip are obtained. FINDINGS: There is a slightly displaced slightly impacted fracture of the left femoral neck. No other fracture or acute bony abnormality identified. There is moderate degenerative disease of both hip and sacroiliac joints. The soft tissues are unremarkable. IMPRESSION: 1. There is a slightly displaced slightly impacted fracture of the left femoral neck. There is no acute bony abnormality noted otherwise. 2. If further evaluation is desired, then CT would be recommended. 3. These results were discussed with Dr. Reinier Carson at the time of this dictation. Dictated by: Dictated on workstation # [id number]
--- NOTE | 2021-01-14 07:12 | Diagnostic Imaging Report ---
PROCEDURE: CT head without contrast. TECHNIQUE: Multiple contiguous axial images were obtained through the brain without the use of intravenous contrast. Auto Exposure Controls were utilized during the CT exam to meet ALARA standards for radiation dose reduction. INDICATION: Altered mental status There is no mass, shift of the midline or hemorrhage to suggest an acute intracranial abnormality. The ventricles are not abnormally dilated and are stable in size when compared to the prior exam of 06/19/2020. The bone windows show no sign of a fracture or of a destructive lesion. The orbits are symmetrical and within normal limits. The sinuses are generally clear. IMPRESSION: 1. There is no evidence for an acute intracranial abnormality. 2. If clinical concern regarding an underlying abnormality persists, MRI would be recommended for further study. 3. I agree with the [facility] interpretation of this exam. Dictated by: Dictated on workstation # [id number]
[2021-01-14] MEDS ORDERED: ONDANSETRON 4 MG/2 ML (SDV) Z0FRAN IVP ONE (07:15)
[2021-01-14 09:00] VITALS: BP 140/80
== END 2021-01-14 09:00 | disposition short-term general hospital (02) ==
LOC: EDUNIT# 22:05 → ER 22:05
DX: S72.002A Fracture of unspecified part of neck of left femur, initial encounter for closed fracture (principal); E11.9 Type 2 diabetes mellitus without complications; G47.30 Sleep apnea, unspecified; I10 Essential (primary) hypertension; J44.9 Chronic obstructive pulmonary disease, unspecified; K21.9 Gastro-esophageal reflux disease without esophagitis; F41.9 Anxiety disorder, unspecified; F32.9 Major depressive disorder, single episode, unspecified; Z87.820 Personal history of traumatic brain injury; Z20.822 Contact with and (suspected) exposure to COVID-19; Z79.4 Long term (current) use of insulin; Z79.899 Other long term (current) drug therapy; W10.9XXA Fall (on) (from) unspecified stairs and steps, initial encounter
CPT/HCPCS: 36415; 51702; 70450; 80048; 81000; 82947; 85007; 85027; 87088; 87636; 96361; 96374; 96375; 99291

== ENCOUNTER → 2021-07-20 | Outpatient (CLI) | payer MEDICARE, MEDICAID ==
[~2021-07-20] VITALS: Ht 157.5 cm; Wt 52.3 kg
[~2021-07-20] MED LIST changes: +CLIN-144 PO; -CLIN300C12 PO; +CYCL10TA25 PO; -CYCL10TA9 PO; -DOXY100C2 PO; +DOXY100C5 PO; -DULO60CA6 PO; +DULO60CA7 PO; -LEVO250T46 PO; +LVF250T PO; +TIZA-186 PO; -TIZA4TAB4 PO
[2021-07-20 12:35] VITALS: BP 0/0
[2021-07-20 12:52] LABS: BASOPHILS % (AUTO) 1 % (0-10); EOSINOPHILS # (AUTO) 0.1 10^3/uL (0.0-0.3); EOSINOPHILS % (AUTO) 1 % (0-10); HEMATOCRIT 35 % (35-52); HEMOGLOBIN 11.6 g/dL (11.5-16.0); LYMPHOCYTES # (AUTO) 1.4 10^3/uL (1.0-4.0); LYMPHOCYTES % (AUTO) 21 % (12-44); MEAN CORPUSCULAR HEMOGLOBIN 30 pg (25-34); MEAN CORPUSCULAR HGB CONC 33 g/dL (32-36); MEAN CORPUSCULAR VOLUME 92 fL (80-99); MEAN PLATELET VOLUME 10.2 fL (9.0-12.2); MONOCYTES # (AUTO) 0.7 10^3/uL (0.0-1.0); MONOCYTES % (AUTO) 10 % (0-12); NEUTROPHILS # (AUTO) 4.4 10^3/uL (1.8-7.8); NEUTROPHILS % (AUTO) 67 % (42-75); PLATELET COUNT 224 10^3/uL (130-400); WHITE BLOOD COUNT 6.6 10^3/uL (4.3-11.0)
[2021-07-20 13:05] LABS: ALBUMIN 3.2 GM/DL (3.2-4.5); BILIRUBIN,TOTAL 0.7 MG/DL (0.1-1.0); CALCIUM 8.8 MG/DL (8.5-10.1); CREATININE SERUM 2.29 MG/DL (0.60-1.30); POTASSIUM 3.9 MMOL/L (3.6-5.0)
== END ==
LOC: SDC 12:04
PROVIDERS: ATTEND Pediatrics
DX: Z45.2 Encounter for adjustment and management of vascular access device (principal); E11.22 Type 2 diabetes mellitus with diabetic chronic kidney disease; N18.4 Chronic kidney disease, stage 4 (severe); K52.9 Noninfective gastroenteritis and colitis, unspecified
CPT/HCPCS: 36415; 36591; 80053; 80061; 82306; 82607; 83036; 83970; 85025; 86141

== ENCOUNTER → 2021-09-28 | Outpatient (CLI) | payer MEDICARE, MEDICAID ==
[~2021-09-28] MED LIST changes: +FLUC100T10 PO
[2021-09-28 13:50] VITALS: BP 142/91
[2021-09-28 14:37] LABS: BASOPHILS % (AUTO) 1 % (0-10); EOSINOPHILS # (AUTO) 0.3 10^3/uL (0.0-0.3); EOSINOPHILS % (AUTO) 4 % (0-10); HEMATOCRIT 35 % (35-52); HEMOGLOBIN 11.5 g/dL (11.5-16.0); LYMPHOCYTES # (AUTO) 1.9 10^3/uL (1.0-4.0); LYMPHOCYTES % (AUTO) 27 % (12-44); MEAN CORPUSCULAR HEMOGLOBIN 30 pg (25-34); MEAN CORPUSCULAR HGB CONC 33 g/dL (32-36); MEAN CORPUSCULAR VOLUME 91 fL (80-99); MEAN PLATELET VOLUME 10.5 fL (9.0-12.2); MONOCYTES # (AUTO) 0.3 10^3/uL (0.0-1.0); MONOCYTES % (AUTO) 5 % (0-12); NEUTROPHILS # (AUTO) 4.4 10^3/uL (1.8-7.8); NEUTROPHILS % (AUTO) 64 % (42-75); PLATELET COUNT 262 10^3/uL (130-400); WHITE BLOOD COUNT 6.9 10^3/uL (4.3-11.0)
[2021-09-28 14:49] LABS: ALBUMIN 3.2 GM/DL (3.2-4.5); CALCIUM 8.9 MG/DL (8.5-10.1); CREATININE SERUM 2.14 MG/DL (0.60-1.30); PHOSPHORUS 5.4 MG/DL (2.3-4.7); POTASSIUM 4.1 MMOL/L (3.6-5.0)
== END ==
LOC: SDC 13:44
PROVIDERS: ATTEND Internal Medicine
DX: N18.4 Chronic kidney disease, stage 4 (severe) (principal); R80.0 Isolated proteinuria
CPT/HCPCS: 36591; 80069

== ENCOUNTER 2021-11-20 17:11 | Emergency (ER) | payer MEDICARE, MEDICAID ==
[~2021-11-20] VITALS: Ht 157 cm; Wt 70.0 kg
--- NOTE | 2021-11-20 18:38 | ED Fall/Injury ---
General Chief Complaint: Trauma-Non Activation Stated Complaint: FALL/R ELBOW AND HIP PAIN Nursing Triage Note: pt states she fell off a porch about 2-3 feet cc of rt elbow and rt hip pain Source: patient Exam Limitations: no limitations History of Present Illness Date Seen by Provider: Nov 20, 2021 Time Seen by Provider: 18:06 Initial Comments Patient to the ER by private conveyance from home with her daughter with chief complaint that about 1:00 this afternoon she was sitting on the porch waiting on her daughter to get ready to leave and was picking at a skin tear on her forearm which started bleeding. This prompted her to get up and go ask for a tissue for the bleeding and she lost her balance and fell off of a porch about 2 steps. She landed on her right hip and right elbow. She has full range of motion in her right elbow. She has a history of left hip replacement. She denies striking her head loss of conscious nausea vomiting fevers chills dysuria. She is on aspirin only. She has a history of strokes with right-sided weakness which she thinks contributed to her poor balance and fall today. Allergies and Home Medications Allergies Coded Allergies: codeine (Verified Allergy, Mild, ITCHING, Pt has received Lortab in the past, 04/09/20) Sulfa (Sulfonamide Antibiotics) (Verified Allergy, Unknown, HIVES, 04/09/20) Patient Home Medication List Home Medication List Reviewed: Yes Acetaminophen (Tylenol Extra Strength) 500 Mg Tablet, 500 MG PO TID PRN for PAIN-MILD, (Reported) Entered as Reported by: RANDALL PERSAUD on 09/15/18 1518 Amoxicillin/Potassium Clav (Amox Tr-K Clv 500-125 mg Tab) 1 Each Tablet, 1 EA PO BID, (Reported) Entered as Reported by: CHAD RAMOS on 06/20/20 1412 Calcitriol (Calcitriol) 0.25 Mcg Capsule, 0.25 MG PO DAILY, (Reported) Entered as Reported by: SCOTT SALEEM on 04/10/20 140 Duloxetine HCl (Duloxetine HCl) 60 Mg Capsule.dr, 60 MG PO DAILY, (Reported) Entered as Reported by: SCOTT SALEEM on 04/10/20 1402 Famotidine (Famotidine) 40 Mg Tablet, 40 MG PO DAILY, (Reported) Entered as Reported by: CHAD RAMOS on 06/20/201411 Insulin Detemir (Levemir Flextouch) 100 Unit/1 Ml Insuln.pen, 45 UNITS SQ DAILY PRN for HYPERGLYCEMIA, (Reported) Entered as Reported by: SCOTT SALEEM on 04/10/201401 Insulin Lispro (Insulin Lispro Kwikpen U-100) 100 Unit/1 Ml Insuln.pen, UNITS SC SLIDING/SCALE, (Reported) Entered as Reported by: CHAD RAMOS on 06/20/201411 Melatonin (Melatonin) 5 Mg Tablet, 5 MG PO HS PRN for SLEEP, (Reported) Entered as Reported by: CHAD RAMOS on 06/20/201411 Ondansetron HCl (Ondansetron HCl) 4 Mg Tablet, 4 MG PO Q6H PRN for NAUSEA/VOMITING-1ST LINE, (Reported) Entered as Reported by: SCOTT SALEEM on 04/10/201401 Review of Systems Review of Systems Constitutional: No chills, No diaphoresis Eyes: Denies Blindness, Denies Drainage Ears, Nose, Mouth, Throat: denies ear pain, denies ear discharge Respiratory: No cough, No short of breath Cardiovascular: No edema, No palpitations Gastrointestinal: No abdominal pain, No nausea, No vomiting Genitourinary: No discharge, No dysuria Musculoskeletal: see HPI; No back pain; joint pain Skin: see HPI All Other Systems Reviewed Negative Unless Noted: Yes Past Mtlyrif-Jwkdnz-Mljmkw Hx Patient Social History Tobacco Use?: No Substance use?: No Alcohol Use?: No Immunizations Up To Date Tetanus Booster (TDap): Unknown Seasonal Allergies Seasonal Allergies: Yes Past Medical History Surgery/Hospitalization HX: lt hip, rt ankle, 2 c section,bronchoscopy, gallbladder, tbi, chf Surgeries: Yes (Left breast cyst, x2, ORIF Right ankle; PORT RIGHT CHEST) Breast, Section, Gallbladder, Orthopedic, Tubal Ligation Respiratory: Yes (CPAP not used after last sleep study) Sleep Apnea, COPD Cardiac: Yes Chronic Edema/Swelling, High Cholesterol, Hypertension Neurological: Yes (HYPOGLYCEMIC ENCEPHALOPATHY) Neuropathy, Stroke, Traumatic Brain Injury 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 Disorders: No 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 Disorders: Denies 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 Sexually Transmitted Disease: No HIV/AIDS: No Genitourinary: Yes (NO DIALYSIS) Renal Failure, UTI-Chronic Gastrointestinal: Yes Gastroesophageal Reflux, Pancreatitis Musculoskeletal: Yes (right ankle fx with steel plate) Degenerate Disk Disease, Chronic Back Pain Endocrine: Yes Diabetes, Insulin dep HEENT: No Loss of Vision: Denies Hearing Impairment: Denies Cancer: No Psychosocial: Yes (DGTR STATES PT HAS ADDICTIVE PERSONALITY) Sleep Difficulties, Anxiety, Depression Integumentary: Yes (FREQUENT CELLULITIS--LEGS) Recent Skin Changes Blood Disorders: No Adverse Reaction/Blood Tranf: No Family Medical History Completed stroke 19 FATHER Congenital heart disease 19 FATHER Diabetes mellitus 19 FATHER Myocardial infarction 19 FATHER Psychosocial problem 19 FATHER (depression) 19 MOTHER (depression) Respiratory disorder 19 MOTHER (copd) Heart Disease, COPD, Diabetes, Psychiatric Problems, Stroke Physical Exam Vital Signs Vital Signs - First Documented 11/20/21 17:47 Temp 36.5 Pulse 66 Resp 16 B/P (MAP) 111/87 (95) Pulse Ox 98 O2 Delivery Room Air Capillary Refill : Less Than 3 Seconds Height, Weight, BMI Height: 5'2.00" Weight: 170lbs. 2.0oz. 77.786475pp; 28.00 BMI Method:Stated General Appearance: WD/WN, no apparent distress HEENT: PERRL/EOMI, normal ENT inspection (Atraumatic head), TMs normal, pharynx normal Neck: full range of motion, supple, normal inspection Cardiovascular: normal peripheral pulses, regular rate, rhythm Respiratory: chest non-tender, lungs clear, normal breath sounds, no respiratory distress, no accessory muscle use Peripheral Pulses: 2+ Radial Pulses (R), 2+ Radial Pulses (L) Gastrointestinal: normal bowel sounds, non tender, soft Extremities: normal capillary refill, other (Full range of motion of the right elbow without crepitus deformity or swelling. No tenderness on palpation. She has a 6 cm ovoid hematoma over the right greater trochanter of her femur.) Neurologic/Psychiatric: alert, normal mood/affect, oriented x 3 Skin: normal color, warm/dry Elian Coma Score Best Eye Response: (4) Open Spontaneously Best Verbal Response: (5) Oriented Best Motor Response: (6) Obeys Commands [place] Total: 15 Procedures/Interventions Date of ETT Placement: Jun 03, 2018 Time of ETT Placement: 1310 Progress/Results/Core Measures Results/Orders My Orders Orders - ANNMARIE CUEVA Ct Head/Cervical Spine Wo (11/20/21 18:31) Elbow, Right, 3 Views (11/20/21 18:31) Hip, Right, 2 Views (11/20/21 18:31) Vital Signs/I&O 11/20/21 17:47 Temp 36.5 Pulse 66 Resp 16 B/P (MAP) 111/87 (95) Pulse Ox 98 O2 Delivery Room Air Blood Pressure Mean: 95 Progress Progress Note : Time: 18:39 Progress Note Plain films of the right elbow, right hip and CT of the head. Diagnostic Imaging Diagonstic Imaging: Xray Plain Films/CT/US/NM/MRI: hip (r) Comments NAME: CHEPE CASTANEDA Dimeres REC#: [id number] PT STATUS: REG ER : 1965 PHYSICIAN: ANNMARIE CUEVA MD ADMIT DATE: 11/20/21/ER Draft Date of Exam:11/20/21 HIP, RIGHT, 2 VIEWS Indication: Fall right, hip pain. Time of Exam: 7:06 PM Two views of the right hip are obtained. There is normal femoral-acetabular alignment. Joint space is well-maintained. The femoral head and neck are intact. No fractures are seen. IMPRESSION: No acute bony abnormality is detected. Dictated on workstation # [id number] Dict: 11/20/211906 Trans: 11/20/211910 [facility] [id number] Interpreted by: SURY JARA MD Electronically signed by: Reviewed: Reviewed by Me Diagonstic Imaging: Xray Plain Films/CT/US/NM/MRI: elbow (r) Comments [facility] [place] NAME: CHEPE CASTANEDA Dimeres REC#: [id number] PT STATUS: REG ER : 1965 PHYSICIAN: ANNMARIE CUEVA MD ADMIT DATE: 11/20/21/ER Draft Date of Exam:11/20/21 ELBOW, RIGHT, 3 VIEWS INDICATION: Fall with right elbow injury. Time of Exam: 7:02 PM 3 views of the right elbow demonstrate normal alignment. Joint spaces are well-maintained. No fracture, dislocation or effusion is identified. IMPRESSION: No acute bony abnormality is detected. Dictated on workstation # [id number] Dict: 11/20/211905 Trans: 11/20/218 [facility] [phone] Interpreted by: SURY JARA MD Electronically signed by: Reviewed: Reviewed by Me Diagonstic Imaging: CT Plain Films/CT/US/NM/MRI: c-spine, head Comments [facility] [place] NAME: CHEPE CASTANEDA [facility] REC#: [id number] PT STATUS: REG ER : 1965 PHYSICIAN: ANNMARIE CUEVA MD ADMIT DATE: 11/20/21/ER Draft Date of Exam:11/20/21 CT HEAD/CERVICAL SPINE WO PROCEDURE: CT head and CT cervical spine without contrast. TECHNIQUE: Multiple contiguous axial images were obtained through the brain and cervical spine without the use of intravenous contrast. Sagittal and coronal reformations through the cervical spine were then performed. Auto Exposure Controls were utilized during the CT exam to meet ALARA standards for radiation dose reduction. INDICATION: Fall. CORRELATION is made with prior head CT from 01/14/2021. CT HEAD: The ventricles and sulci are within normal limits. No sulcal effacement or midline shift is identified. No acute intra-axial or extra-axial hemorrhage is detected. Cisterns are patent. The visualized paranasal sinuses are clear. IMPRESSION: 1. No acute intracranial process is detected. CT CERVICAL SPINE: Minimal retrolisthesis of C4 on C5 is noted. There is C4-5 and C5-C6 degenerative disc disease with disc space narrowing and marginal spurring present. No fractures are seen. The prevertebral tissues are within normal limits. Odontoid is intact. IMPRESSION: 1. Cervical spondylosis. No acute bony abnormality is detected. Dictated on workstation # [id number] Dict: 11/20/211900 Trans: 11/20/211906 [facility] [phone] Interpreted by: SURY JARA MD Electronically signed by: Reviewed: Reviewed by Me Departure Impression Primary Impression: Fall Qualified Codes: W19.XXXA - Unspecified fall, initial encounter Additional Impressions: Hematoma Right hip pain Right elbow pain Disposition: 01 HOME, SELF-CARE Condition: Stable Departure-Patient Inst. Decision time for Depature: 19:14 Referrals: CHAD ALEGRE DO (PCP/Family) Primary Care Physician Patient Instructions: Hip Pain ED, Joint Pain Add. Discharge Instructions: Ice 20 minutes on every 2 hours for the first 2 days while awake. Tylenol 1000 mg every 8 hours needed for pain. Topical cream such as icy hot, Biofreeze, capsaicin oil, etc. as necessary for pain control. Follow-up with your primary care doctor if you are not seeing some improvement in your pain in the next week. The hematoma will change colors and resolve on its own over the next 2-3 weeks and does not present any danger to you. All discharge instructions reviewed with patient and/or family. Voiced understanding. ANNMARIE CUEVA Nov 20, 2021 18:38
--- NOTE | 2021-11-20 19:07 | Diagnostic Imaging Report ---
PROCEDURE: CT head and CT cervical spine without contrast. TECHNIQUE: Multiple contiguous axial images were obtained through the brain and cervical spine without the use of intravenous contrast. Sagittal and coronal reformations through the cervical spine were then performed. Auto Exposure Controls were utilized during the CT exam to meet ALARA standards for radiation dose reduction. INDICATION: Fall. CORRELATION is made with prior head CT from 01/14/2021. CT HEAD: The ventricles and sulci are within normal limits. No sulcal effacement or midline shift is identified. No acute intra-axial or extra-axial hemorrhage is detected. Cisterns are patent. The visualized paranasal sinuses are clear. IMPRESSION: 1. No acute intracranial process is detected. CT CERVICAL SPINE: Minimal retrolisthesis of C4 on C5 is noted. There is C4-5 and C5-C6 degenerative disc disease with disc space narrowing and marginal spurring present. No fractures are seen. The prevertebral tissues are within normal limits. Odontoid is intact. IMPRESSION: 1. Cervical spondylosis. No acute bony abnormality is detected. Dictated by: Dictated on workstation # [id number]
--- NOTE | 2021-11-20 19:08 | Diagnostic Imaging Report ---
INDICATION: Fall with right elbow injury. Time of Exam: 7:02 PM 3 views of the right elbow demonstrate normal alignment. Joint spaces are well-maintained. No fracture, dislocation or effusion is identified. IMPRESSION: No acute bony abnormality is detected. Dictated by: Dictated on workstation # [id number]
--- NOTE | 2021-11-20 19:11 | Diagnostic Imaging Report ---
Indication: Fall right, hip pain. Time of Exam: 7:06 PM Two views of the right hip are obtained. There is normal femoral-acetabular alignment. Joint space is well-maintained. The femoral head and neck are intact. No fractures are seen. IMPRESSION: No acute bony abnormality is detected. Dictated by: Dictated on workstation # [id number]
[2021-11-20] MEDS ORDERED: ACETAMINOPHEN 500 MG TAB (TYLENOL) PO ONE (19:30)
[2021-11-20 19:31] VITALS: BP 144/84
== END 2021-11-20 19:31 | disposition home or self-care (01) ==
LOC: EDUNIT# 17:11 → ER 17:13
DX: S70.01XA Contusion of right hip, initial encounter (principal); M25.521 Pain in right elbow; G47.30 Sleep apnea, unspecified; E11.9 Type 2 diabetes mellitus without complications; Z99.89 Dependence on other enabling machines and devices; Z79.4 Long term (current) use of insulin; W10.8XXA Fall (on) (from) other stairs and steps, initial encounter; Y92.008 Other place in unspecified non-institutional (private) residence as the place of occurrence of the external cause
CPT/HCPCS: 70450; 72125; 73080; 73502

== ENCOUNTER 2021-12-20 17:41 | Emergency (ER) | payer MEDICARE, MEDICAID | END 2021-12-20 17:50 | disposition left against medical advice (07) | LOC: EDUNIT# 17:41 → ER 17:44 | DX: Z04.3 Encounter for examination and observation following other accident (principal); W19.XXXA Unspecified fall, initial encounter ==

== ENCOUNTER → 2022-01-14 | Outpatient (CLI) | payer MEDICARE, MEDICAID ==
[~2022-01-14] VITALS: Wt 70.0 kg
[2022-01-14 12:15] VITALS: BP 140/72
[2022-01-14 12:50] LABS: BASOPHILS # (AUTO) 0.1 10^3/uL (0.0-0.1); BASOPHILS % (AUTO) 1 % (0-10); EOSINOPHILS # (AUTO) 0.2 10^3/uL (0.0-0.3); EOSINOPHILS % (AUTO) 3 % (0-10); HEMATOCRIT 28 % (35-52); HEMOGLOBIN 8.9 g/dL (11.5-16.0); LYMPHOCYTES # (AUTO) 1.9 10^3/uL (1.0-4.0); LYMPHOCYTES % (AUTO) 25 % (12-44); MEAN CORPUSCULAR HEMOGLOBIN 30 pg (25-34); MEAN CORPUSCULAR HGB CONC 32 g/dL (32-36); MEAN CORPUSCULAR VOLUME 95 fL (80-99); MEAN PLATELET VOLUME 10.3 fL (9.0-12.2); MONOCYTES # (AUTO) 0.5 10^3/uL (0.0-1.0); MONOCYTES % (AUTO) 6 % (0-12); NEUTROPHILS # (AUTO) 4.8 10^3/uL (1.8-7.8); NEUTROPHILS % (AUTO) 65 % (42-75); PLATELET COUNT 235 10^3/uL (130-400); WHITE BLOOD COUNT 7.3 10^3/uL (4.3-11.0)
[2022-01-14 13:15] LABS: ALBUMIN 3.2 GM/DL (3.2-4.5); POTASSIUM 4.4 MMOL/L (3.6-5.0)
[2022-01-14 13:16] LABS: CALCIUM 8.8 MG/DL (8.5-10.1)
[2022-01-14 13:17] LABS: TOTAL PROTEIN 6.7 GM/DL (6.4-8.2)
[2022-01-14 13:19] LABS: BILIRUBIN,TOTAL 0.3 MG/DL (0.1-1.0)
[2022-01-14 13:21] LABS: CREATININE SERUM 3.02 MG/DL (0.60-1.30)
== END ==
LOC: SDC 12:06
PROVIDERS: ATTEND Pediatrics
DX: N18.4 Chronic kidney disease, stage 4 (severe) (principal)
CPT/HCPCS: 36415; 36591; 80053; 80061; 82652; 83970; 85025

== ENCOUNTER → 2022-02-05 | Outpatient (CLI) | payer MEDICARE, MEDICAID ==
[~2022-02-05] VITALS: Wt 70.0 kg
[2022-02-05 11:11] VITALS: BP 127/66
[2022-02-05 11:36] LABS: ALBUMIN 3.2 GM/DL (3.2-4.5); CALCIUM 8.6 MG/DL (8.5-10.1); CREATININE SERUM 2.66 MG/DL (0.60-1.30); POTASSIUM 4.4 MMOL/L (3.6-5.0)
== END ==
LOC: SDC 10:41
PROVIDERS: ATTEND Internal Medicine
DX: N18.4 Chronic kidney disease, stage 4 (severe) (principal)
CPT/HCPCS: 36415; 36591; 80069

== ENCOUNTER 2022-03-01 22:33 | Emergency (ER) | payer MEDICARE, MEDICAID ==
[~2022-03-01] VITALS: Ht 157.4 cm; Wt 77.5 kg
[2022-03-01] MEDS ORDERED: LIDOCAINE 1% INJ 10 ML VIAL INJ ONE (22:45)
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
--- NOTE | 2022-03-01 23:06 | Diagnostic Imaging Report ---
PROCEDURE: CT head, face, and cervical spine without contrast. TECHNIQUE: Multiple contiguous axial images were obtained through the head, neck, and facial bones without the use of intravenous contrast. Sagittal and coronal reformations through the cervical spine and facial bones were also performed. Auto Exposure Controls were utilized during the CT exam to meet ALARA standards for radiation dose reduction. INDICATION: Fall. Head and neck pain. Facial laceration. COMPARISON: 11/20/2021. FINDINGS: CT head: The ventricles and cortical sulci are age-appropriate. There is no midline shift or mass-effect. No acute intracranial hemorrhage is seen. Scattered chronic microvascular disease is seen in the periventricular and subcortical white matter. There is no CT evidence of acute territorial ischemia. No focal masses or collections are present. The calvarium is intact. CT face: No acute facial fractures are visualized. The mandible, zygomatic arches, and pterygoid plates are intact. The bilateral TMJ demonstrate degenerative changes bilaterally. No nasal bone fractures. The bony nasal septum is slightly deviated to the right without fracture. The paranasal sinuses and mastoid air cells are well pneumatized. Soft tissue contusion is seen overlying the left orbit and forehead left of midline. No evidence of globe rupture. No post-septal inflammatory changes. No evidence of orbital rim fracture. CT cervical spine: No acute fracture or dislocation is seen in the cervical spine. No focal osseous lesions. Vertebral body heights are well-maintained. The craniocervical junction is well-maintained. Afzm-oh-rfzyasjj degenerative changes are seen in the cervical spine with disc osteophyte complexes and uncovertebral arthropathy. Soft tissues of the neck are unremarkable. The included lung apices are clear. IMPRESSION: 1. No hemorrhage or focal intra-axial mass. No CT evidence of large acute territorial ischemia. 2. No acute fracture or dislocation in the cervical spine. 3. No acute facial fractures. 4. Soft tissue contusion overlying the left orbit and forehead left of midline. No evidence of post-septal inflammation. No globe rupture. Dictated by: Dictated on workstation # [id number]
[2022-03-01 23:57] VITALS: BP 140/80
== END 2022-03-01 23:57 | disposition home or self-care (01) ==
LOC: EDUNIT# 22:33 → ER 22:34
DX: S01.112A Laceration without foreign body of left eyelid and periocular area, initial encounter (principal); E11.40 Type 2 diabetes mellitus with diabetic neuropathy, unspecified; Z79.4 Long term (current) use of insulin; V00.831A Fall from motorized mobility scooter, initial encounter; Y92.410 Unspecified street and highway as the place of occurrence of the external cause
CPT/HCPCS: 70450; 70486; 72125

== ENCOUNTER → 2022-03-01 | Outpatient (CLI) | payer MEDICARE, MEDICAID ==
[~2022-03-01] MED LIST changes: +LEVO250T66 PO; -LVF250T PO
[2022-03-01 13:54] LABS: BASOPHILS % (AUTO) 0 % (0-10); EOSINOPHILS # (AUTO) 0.1 10^3/uL (0.0-0.3); EOSINOPHILS % (AUTO) 3 % (0-10); HEMATOCRIT 25 % (35-52); HEMOGLOBIN 8.3 g/dL (11.5-16.0); LYMPHOCYTES # (AUTO) 1.3 10^3/uL (1.0-4.0); LYMPHOCYTES % (AUTO) 25 % (12-44); MEAN CORPUSCULAR HEMOGLOBIN 31 pg (25-34); MEAN CORPUSCULAR HGB CONC 33 g/dL (32-36); MEAN CORPUSCULAR VOLUME 93 fL (80-99); MEAN PLATELET VOLUME 10.4 fL (9.0-12.2); MONOCYTES # (AUTO) 0.3 10^3/uL (0.0-1.0); MONOCYTES % (AUTO) 6 % (0-12); NEUTROPHILS # (AUTO) 3.4 10^3/uL (1.8-7.8); NEUTROPHILS % (AUTO) 65 % (42-75); PLATELET COUNT 190 10^3/uL (130-400); WHITE BLOOD COUNT 5.2 10^3/uL (4.3-11.0)
== END ==
LOC: SDC 12:58
PROVIDERS: ATTEND Internal Medicine
DX: N18.4 Chronic kidney disease, stage 4 (severe) (principal)
CPT/HCPCS: 36415; 82607; 82652; 82728; 82746; 83540; 83550; 83970; 84550; 85025

== ENCOUNTER → 2022-03-06 | Outpatient (CLI) | payer MEDICARE, MEDICAID ==
[~2022-03-06] VITALS: Wt 77.5 kg
[2022-03-06 13:50] VITALS: BP 141/65
[2022-03-06 14:12] LABS: BASOPHILS % (AUTO) 0 % (0-10); EOSINOPHILS # (AUTO) 0.1 10^3/uL (0.0-0.3); EOSINOPHILS % (AUTO) 2 % (0-10); HEMATOCRIT 25 % (35-52); HEMOGLOBIN 8.1 g/dL (11.5-16.0); LYMPHOCYTES # (AUTO) 1.6 10^3/uL (1.0-4.0); LYMPHOCYTES % (AUTO) 26 % (12-44); MEAN CORPUSCULAR HEMOGLOBIN 30 pg (25-34); MEAN CORPUSCULAR HGB CONC 32 g/dL (32-36); MEAN CORPUSCULAR VOLUME 93 fL (80-99); MEAN PLATELET VOLUME 10.2 fL (9.0-12.2); MONOCYTES # (AUTO) 0.5 10^3/uL (0.0-1.0); MONOCYTES % (AUTO) 8 % (0-12); NEUTROPHILS # (AUTO) 3.8 10^3/uL (1.8-7.8); NEUTROPHILS % (AUTO) 64 % (42-75); PLATELET COUNT 187 10^3/uL (130-400)
[2022-03-06 14:39] LABS: ALBUMIN 3.3 GM/DL (3.2-4.5); POTASSIUM 5.5 MMOL/L (3.6-5.0)
[2022-03-06 14:41] LABS: CALCIUM 8.7 MG/DL (8.5-10.1)
[2022-03-06 14:45] LABS: CREATININE SERUM 3.31 MG/DL (0.60-1.30); PHOSPHORUS 4.3 MG/DL (2.3-4.7)
[2022-03-06 14:47] LABS: MAGNESIUM 2.3 MG/DL (1.6-2.4)
== END ==
LOC: SDC 13:40
PROVIDERS: ATTEND Pediatrics
DX: N18.4 Chronic kidney disease, stage 4 (severe) (principal); R63.5 Abnormal weight gain; W19.XXXA Unspecified fall, initial encounter
CPT/HCPCS: 36415; 36591; 80069; 83735; 83880; 85025

== ENCOUNTER → 2022-03-12 | Outpatient (CLI) | payer MEDICARE, MEDICAID | LOC: CARD 10:30 | PROVIDERS: ATTEND Pediatrics | DX: I51.7 Cardiomegaly (principal); E87.5 Hyperkalemia | CPT/HCPCS: 93306 ==

== ENCOUNTER 2022-03-21 18:22 | Emergency (ER) | payer MEDICARE, MEDICAID ==
[~2022-03-21] VITALS: Ht 157.4 cm; Wt 77.0 kg
[2022-03-21 18:45] VITALS: BP 136/82
--- NOTE | 2022-03-21 19:49 | ED General ---
General Chief Complaint: - 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 Stated Complaint: KIDNEY SPECIALIST REFERRED FOR BLADDER SCAN Nursing Triage Note: PT TO RM 4 BY WC WITH COMPLAINT OF URINARY INCONTINENCE, ABNORMAL LAB WORK, AND SWELLING. WAS SENT BY PRODUCT DEVELOPMENT DIRECTOR Source of Information: Patient, Family, Old Records Exam Limitations: Other (Patient has history of TBI, defers to daughter for history) History of Present Illness Date Seen by Provider: Mar 21, 2022 Time Seen by Provider: 18:35 Initial Comments This 56-year-old woman presents to the emergency room accompanied by her daughter who provides the history. Reportedly her nephrology team at [facility] under the direction of Dr. Roldan advised her to seek evaluation in the emergency department after reviewing labs. Apparently there was concern for urinary retention. Patient has had worsening renal function in recent months according to her daughter. Patient always reports feeling cold and is generally very sleepy and fatigued. She has had recent labs obtained on March 01, March 06, and today (March 21). Hemoglobin has been 8.9, 8.3, 8.1, and 7.9. Potassium has been 4.4, 4.4, 5.5, and 5.1. Creatinine has been 3.02, 2.66, 3.31 (GFR 16), and 3.43 (GFR 15). The commanding officer homicide squad reportedly did not have today's labs. She has had problems with urinary retention in the past and home health was previously performing straight caths daily. Daughter has concerns about managing a De La Fuente catheter with patient's history of traumatic brain injury. She has had recent increased leg edema. On review of chart it was also noted that she has history of severe vitamin D deficiency with a vitamin D 25 OH of 17.5 in July. Daughter comments that her diuretic ther apy was recently changed to Bumex. Patient denies any pain or any acute feeling of illness. She is afebrile. She is alert and talkative. She is personally a poor historian. Daughter reports patient urinates 6 or 7 times per day. Patient is generally debilitated and only walks with a walker and generally requires assistance. Allergies and Home Medications Allergies Coded Allergies: codeine (Verified Allergy, Mild, ITCHING, Pt has received Lortab in the past, 04/09/20) Sulfa (Sulfonamide Antibiotics) (Verified Allergy, Unknown, HIVES, 11/1/20) Patient Home Medication List Home Medication List Reviewed: Yes Acetaminophen (Tylenol Extra Strength) 500 Mg Tablet, 500 MG PO TID PRN for PAIN-MILD, (Reported) Entered as Reported by: RANDALL PERSAUD on 09/15/181517 Amoxicillin/Potassium Clav (Amox Tr-K Clv 500-125 mg Tab) 1 Each Tablet, 1 EA PO BID, (Reported) Entered as Reported by: CHAD RAMOS on 06/20/201411 Calcitriol (Calcitriol) 0.25 Mcg Capsule, 0.25 MG PO DAILY, (Reported) Entered as Reported by: SCOTT SALEEM on 04/10/201401 Cefdinir (Cefdinir) 300 Mg Capsule, 300 MG PO DAILY Prescribed by: MICA BROWN on 03/21/222156 Duloxetine HCl (Duloxetine HCl) 60 Mg Capsule.dr, 60 MG PO DAILY, (Reported) Entered as Reported by: SCOTT SALEEM on 04/10/201401 Famotidine (Famotidine) 40 Mg Tablet, 40 MG PO DAILY, (Reported) Entered as Reported by: CHAD RAMOS on 06/20/201411 Insulin Detemir (Levemir Flextouch) 100 Unit/1 Ml Insuln.pen, 45 UNITS SQ DAILY PRN for HYPERGLYCEMIA, (Reported) Entered as Reported by: SCOTT SALEEM on 04/10/201401 Insulin Lispro (Insulin Lispro Kwikpen U-100) 100 Unit/1 Ml Insuln.pen, UNITS SC SLIDING/SCALE, (Reported) Entered as Reported by: CHAD RAMOS on 06/20/201411 Melatonin (Melatonin) 5 Mg Tablet, 5 MG PO HS PRN for SLEEP, (Reported) Entered as Reported by: CHAD RAMOS on 06/20/201411 Ondansetron HCl (Ondansetron HCl) 4 Mg Tablet, 4 MG PO Q6H PRN for NAUSEA/VOMITING-1ST LINE, (Reported) Entered as Reported by: SCOTT SALEEM on 04/10/201401 Review of Systems Review of Systems Constitutional: see HPI EENTM: no symptoms reported Respiratory: no symptoms reported Cardiovascular: no symptoms reported Gastrointestinal: no symptoms reported Genitourinary: see HPI Musculoskeletal: no symptoms reported Skin: no symptoms reported Psychiatric/Neurological: See HPI Hematologic/Lymphatic: No Symptoms Reported Immunological/Allergic: no symptoms reported Past Hyeqfyw-Rojvqi-Prlhlf Hx Patient Social History Tobacco Use?: No Use of E-Cig and/or Vaping dev: No Substance use?: No Alcohol Use?: No Pt feels they are or have been: No Immunizations Up To Date Tetanus Booster (TDap): Unknown First/Initial COVID19 Vaccinat: UNK Second COVID19 Vaccination Marshal: UNK Third COVID19 Vaccination Date: UNK Seasonal Allergies Seasonal Allergies: Yes Past Medical History Surgery/Hospitalization HX: lt hip, rt ankle, 2 c section,bronchoscopy, gallbladder, tbi, chf Surgeries: Yes (Left breast cyst, x2, ORIF Right ankle; PORT RIGHT CHEST) Breast, Section, Gallbladder, Orthopedic, Tubal Ligation Respiratory: Yes (CPAP not used after last sleep study) Sleep Apnea, COPD Cardiac: Yes Chronic Edema/Swelling, High Cholesterol, Hypertension Neurological: Yes (HYPOGLYCEMIC ENCEPHALOPATHY) Neuropathy, Stroke, Traumatic Brain Injury 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 Disorders: No 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 Disorders: Denies SITE DIRECTOR History: Tubal Ligation Sexually Transmitted Disease: No HIV/AIDS: No Genitourinary: Yes (NO DIALYSIS) Renal Failure (Chronic kidney disease), UTI-Chronic Gastrointestinal: Yes Gastroesophageal Reflux, Pancreatitis Musculoskeletal: Yes (right ankle fx with steel plate) Degenerate Disk Disease, Chronic Back Pain Endocrine: Yes Diabetes, Insulin dep HEENT: No Loss of Vision: Denies Hearing Impairment: Denies Cancer: No Psychosocial: Yes (DGTR STATES PT HAS ADDICTIVE PERSONALITY) Sleep Difficulties, Anxiety, Depression Integumentary: Yes (FREQUENT CELLULITIS--LEGS) Recent Skin Changes Blood Disorders: No Adverse Reaction/Blood Tranf: No Family Medical History Completed stroke 19 FATHER Congenital heart disease 19 FATHER Diabetes mellitus 19 FATHER Myocardial infarction 19 FATHER Psychosocial problem 19 FATHER (depression) 19 MOTHER (depression) Respiratory disorder 19 MOTHER (copd) Heart Disease, COPD, Diabetes, Psychiatric Problems, Stroke Physical Exam Vital Signs Vital Signs - First Documented 03/21/22 03/21/22 18:37 18:45 Temp 36.7 Pulse 57 Resp 16 B/P (MAP) 137/89 (105) Pulse Ox 97 O2 Delivery Room Air Capillary Refill : Less Than 3 Seconds Height, Weight, BMI Height: 5'2.00" Weight: 170lbs. 2.0oz. 77.339402en; 31.00 BMI Method:Stated General Appearance: No Apparent Distress, WD/WN, Other (Resting comfortably in bed) HEENT: PERRL/EOMI, Pharynx Normal, Other (Scabbed injuries on the left face, injury along the left brow has been glued) Neck: Normal Inspection Respiratory: Lungs Clear, Normal Breath Sounds, No Accessory Muscle Use Cardiovascular: Regular Rate, Rhythm, No Murmur, Other (Firm pitting lower extremity edema) Gastrointestinal: Normal Bowel Sounds, Non Tender, Soft; No Distended Extremity: Non Tender, Swelling (Firm pitting edema equal bilaterally) Neurologic/Psychiatric: Alert, No Motor/Sensory Deficits, Normal Mood/Affect Skin: Normal Color, Warm/Dry Procedures/Interventions Date of ETT Placement: Jun 03, 2018 Time of ETT Placement: 1310 Progress/Results/Core Measures Suspected Sepsis SIRS Temperature: Pulse: 57 Respiratory Rate: 16 Blood Pressure 137 /89 Mean: 105 Results/Orders Lab Results Laboratory Tests Test 03/21/22 13:45 03/21/22 20:14 Range/Units Thyroid Stimulating Hormone (TSH) 1.48 0.35-4.94 UIU/ML Free Thyroxine 0.93 0.70-1.48 NG/DL Urine Color YELLOW Urine Clarity CLOUDY Urine pH 7.5 5-9 Urine Specific Hawi 1.020 1.016-1.022 Urine Protein 2+ H NEGATIVE Urine Glucose (UA) NEGATIVE NEGATIVE Urine Ketones NEGATIVE NEGATIVE Urine Nitrite NEGATIVE NEGATIVE Urine Bilirubin NEGATIVE NEGATIVE Urine Urobilinogen 0.2 < = 1.0 MG/DL Urine Leukocyte Esterase 3+ H NEGATIVE Urine RBC (Auto) 2+ H NEGATIVE Urine RBC 25-50 H /HPF Urine WBC TNTC H /HPF Urine Squamous Epithelial Cells 0-2 /HPF Urine Crystals NONE /LPF Urine Bacteria FEW H /HPF Urine Casts NONE /LPF Urine Mucus NEGATIVE /LPF Urine Culture Indicated YES My Orders Orders - MICA CONTRERAS MD Ua Culture If Indicated (03/21/22 18:35) Bladder Scan (03/21/22 18:35) Thyroid Stimulating Hormone (03/21/22 19:07) Free T4 (Free Thyroxine) (03/21/22 19:07) De La Fuente Cath (03/21/22 19:57) Urine Culture (03/21/22 20:14) Cefdinir Capsule (Omnicef Capsule) (03/21/22 22:00) Medications Given in ED Current Medications Medications Dose Ordered Sig/Amy Route Start Time Stop Time Status Last Admin Dose Admin Cefdinir 300 mg ONCE ONCE PO 03/21/22 22:00 03/21/22 22:01 DC 03/21/22 22:07 300 MG Vital Signs/I&O 03/21/22 03/21/22 18:37 18:45 Temp 36.7 Pulse 57 86 Resp 16 18 B/P (MAP) 137/89 (105) 136/82 Pulse Ox 97 96 O2 Delivery Room Air Room Air Capillary Refill : Less Than 3 Seconds Blood Pressure Mean: 105 Progress Note #1: Time: 19:52 Progress Note Staff assisted patient with attempts to urinate multiple times. She was unable to produce any urine. Bladder scan revealed approximately 490 mL of retained urine. De La Fuente catheter is being placed. Review of chart reveals no recent thyroid studies. Thyroid studies were added to the labs drawn earlier today. Progress Note #2: Progress Note Urinary tract infection was identified by urinalysis. Patient was treated with cefdinir. See discharge instructions for further discussion. Discharge instructions and direction and follow-up was discussed with the daughter in detail. Departure Impression Primary Impression: Urinary retention Additional Impressions: Chronic kidney disease Qualified Codes: N18.9 - Chronic kidney disease, unspecified Fatigue Qualified Codes: R53.83 - Other fatigue Urinary tract infection Qualified Codes: N39.0 - Urinary tract infection, site not specified Disposition: HOME, SELF-CARE Condition: Improved Departure-Patient Inst. Referrals: CHAD ALEGRE DO (PCP/Family) Primary Care Physician Patient Instructions: How to Care for Your De La Fuente Catheter Add. Discharge Instructions: Your kidney function appears stable from the last blood draw on March 06. You have a notable anemia with hemoglobin of 7.9. This has been gradually dropping over the past 2 months. This should be discussed with your commanding officer homicide squad (kidney specialist). This is likely contributing to fatigue. It was also noted that you have a history of severe vitamin D deficiency. If this has not been checked in the last 6 months, you should discuss having this reevaluated by your primary care provider or commanding officer homicide squad. This is likely contributing to fatigue. You were retaining a significant amount of urine in the bladder today. De La Fuente catheter placement may help improve your kidney function and diuresis. Draining the bladder thoroughly should also help with treatment of bladder infection. You need to discuss the duration of De La Fuente catheter placement with your urologist and commanding officer homicide squad. There are medications that can help with weak bladder muscles and may help improve your urination. Your urologist and/or commanding officer homicide squad may choose to trial one of these medications and lieu of the catheter. Until you are able to have that discussion with them, please keep the urinary catheter in place. Empty the catheter often and try to keep the canister below the level of your bladder. Drink plenty of clear liquids to stay well-hydrated and help flush out your bladder infection. A urine culture is being performed and results should be available by Friday. Follow-up on culture results with your doctor on Friday. If you do not believe this should wait until Friday, you may contact the emerg ency room on Friday. Urine culture results should be available by then. Follow-up with all of your doctors as soon as possible and share these discharge instructions with them at follow-up. Return to the emergency room if you have worsening symptoms. All discharge instructions reviewed with patient and/or family. Voiced understanding. Scripts Cefdinir (Cefdinir) 300 Mg Capsule 300 MG PO DAILY, #6 CAP 0 Refills Prov: MICA CONTRERAS MD 03/21/22 Copy Copies To 1: CHAD ALEGRE JOSHUA T MD Mar 21, 2022 19:49
[2022-03-21 20:34] LABS: BILIRUBIN,URINE NEGATIVE (NEGATIVE); CLARITY,URINE CLOUDY; COLOR,URINE YELLOW; GLUCOSE, URINE (UA) NEGATIVE (NEGATIVE); KETONES,URINE NEGATIVE (NEGATIVE); LEUKOCYTE ESTERASE ,URINE 3+ (NEGATIVE); NITRITE,URINE NEGATIVE (NEGATIVE); PH,URINE 7.5 (5-9); PROTEIN,URINE 2+ (NEGATIVE)
[2022-03-21 20:44] LABS: BACTERIA,URINE FEW /HPF; RBC,URINE 25-50 /HPF; SQUAMOUS EPITHELIAL CELL,UR 0-2 /HPF; WBC,URINE TNTC /HPF
[2022-03-21 20:47] LABS: FREE T4 (FREE THYROXINE) 0.93 NG/DL (0.70-1.48)
[2022-03-21] MEDS ORDERED: CEFD300C3 PO (21:57)
[2022-03-21] MEDS ORDERED: CEFDINIR 300 MG (OMNICEF) CAP PO ONE (22:00)
== END 2022-03-21 20:20 ==
LOC: EDUNIT# 18:22 → ER 18:25
DX: N39.0 Urinary tract infection, site not specified (principal); E11.22 Type 2 diabetes mellitus with diabetic chronic kidney disease; I12.9 Hypertensive chronic kidney disease with stage 1 through stage 4 chronic kidney disease, or unspecified chronic kidney disease; N18.9 Chronic kidney disease, unspecified; E11.649 Type 2 diabetes mellitus with hypoglycemia without coma; G93.41 Metabolic encephalopathy; Z79.4 Long term (current) use of insulin
CPT/HCPCS: 36415; 51702; 81000; 84439; 84443; 87088

== ENCOUNTER → 2022-03-21 | Outpatient (CLI) | payer MEDICARE, MEDICAID ==
[2022-03-21 11:15] VITALS: BP 117/75
[2022-03-21 12:08] LABS: BASOPHILS % (AUTO) 0 % (0-10); EOSINOPHILS # (AUTO) 0.1 10^3/uL (0.0-0.3); EOSINOPHILS % (AUTO) 1 % (0-10); HEMATOCRIT 25 % (35-52); HEMOGLOBIN 7.9 g/dL (11.5-16.0); LYMPHOCYTES % (AUTO) 16 % (12-44); MEAN CORPUSCULAR HEMOGLOBIN 30 pg (25-34); MEAN CORPUSCULAR HGB CONC 32 g/dL (32-36); MEAN CORPUSCULAR VOLUME 93 fL (80-99); MEAN PLATELET VOLUME 10.8 fL (9.0-12.2); MONOCYTES # (AUTO) 0.4 10^3/uL (0.0-1.0); MONOCYTES % (AUTO) 7 % (0-12); NEUTROPHILS # (AUTO) 4.6 10^3/uL (1.8-7.8); NEUTROPHILS % (AUTO) 75 % (42-75); PLATELET COUNT 165 10^3/uL (130-400); WHITE BLOOD COUNT 6.1 10^3/uL (4.3-11.0)
[2022-03-21 14:29] LABS: ALBUMIN 3.3 GM/DL (3.2-4.5); BILIRUBIN,TOTAL 0.7 MG/DL (0.1-1.0); CALCIUM 8.7 MG/DL (8.5-10.1); CREATININE SERUM 3.43 MG/DL (0.60-1.30); MAGNESIUM 2.2 MG/DL (1.6-2.4); POTASSIUM 5.1 MMOL/L (3.6-5.0); TOTAL PROTEIN 6.6 GM/DL (6.4-8.2)
== END ==
LOC: SDC 11:02
PROVIDERS: ATTEND Pediatrics
DX: N18.4 Chronic kidney disease, stage 4 (severe) (principal)
CPT/HCPCS: 36415; 36591; 80053; 82728; 83540; 83550; 83735; 85025

== ENCOUNTER → 2022-04-01 | Outpatient (CLI) | payer MEDICARE, MEDICAID ==
[2022-04-01 14:16] VITALS: BP 130/72
[2022-04-01 14:17] LABS: BASOPHILS % (AUTO) 0 % (0-10); EOSINOPHILS # (AUTO) 0.2 10^3/uL (0.0-0.3); EOSINOPHILS % (AUTO) 3 % (0-10); HEMATOCRIT 25 % (35-52); LYMPHOCYTES # (AUTO) 1.3 10^3/uL (1.0-4.0); LYMPHOCYTES % (AUTO) 23 % (12-44); MEAN CORPUSCULAR HEMOGLOBIN 30 pg (25-34); MEAN CORPUSCULAR HGB CONC 32 g/dL (32-36); MEAN CORPUSCULAR VOLUME 94 fL (80-99); MEAN PLATELET VOLUME 10.6 fL (9.0-12.2); MONOCYTES # (AUTO) 0.4 10^3/uL (0.0-1.0); MONOCYTES % (AUTO) 7 % (0-12); NEUTROPHILS # (AUTO) 3.6 10^3/uL (1.8-7.8); NEUTROPHILS % (AUTO) 66 % (42-75); PLATELET COUNT 170 10^3/uL (130-400); WHITE BLOOD COUNT 5.4 10^3/uL (4.3-11.0)
[2022-04-01 14:25] LABS: ALBUMIN 3.4 GM/DL (3.2-4.5)
[2022-04-01 14:26] LABS: POTASSIUM 5.1 MMOL/L (3.6-5.0)
[2022-04-01 14:27] LABS: CALCIUM 8.5 MG/DL (8.5-10.1)
[2022-04-01 14:31] LABS: CREATININE SERUM 3.76 MG/DL (0.60-1.30); PHOSPHORUS 4.3 MG/DL (2.3-4.7)
[2022-04-01 14:34] LABS: MAGNESIUM 2.5 MG/DL (1.6-2.4)
== END ==
LOC: SDC 13:55
PROVIDERS: ATTEND Internal Medicine
DX: N18.4 Chronic kidney disease, stage 4 (severe) (principal)
CPT/HCPCS: 36415; 36591; 80069; 83735; 85025

== ENCOUNTER → 2022-04-10 | Outpatient (CLI) | payer MEDICARE, MEDICAID | LOC: CARD 11:22 | PROVIDERS: ATTEND Pediatrics | DX: R00.1 Bradycardia, unspecified (principal) | CPT/HCPCS: 93242 ==

== ENCOUNTER → 2022-05-14 | Outpatient (CLI) | payer MEDICARE, MEDICAID ==
[~2022-05-14] VITALS: Wt 77.0 kg
[2022-05-14 09:50] VITALS: BP 136/72
[2022-05-14 10:42] LABS: BILIRUBIN,URINE NEGATIVE (NEGATIVE); CLARITY,URINE CLEAR; COLOR,URINE YELLOW; GLUCOSE, URINE (UA) NEGATIVE (NEGATIVE); KETONES,URINE NEGATIVE (NEGATIVE); LEUKOCYTE ESTERASE ,URINE TRACE (NEGATIVE); NITRITE,URINE NEGATIVE (NEGATIVE); PH,URINE 6.5 (5-9); PROTEIN,URINE 3+ (NEGATIVE)
[2022-05-14 10:55] LABS: BACTERIA,URINE MODERATE /HPF; RBC,URINE 0-2 /HPF
[2022-05-14 10:55] LABS: BASOPHILS % (AUTO) 0 % (0-10); EOSINOPHILS # (AUTO) 0.3 10^3/uL (0.0-0.3); EOSINOPHILS % (AUTO) 6 % (0-10); HEMATOCRIT 28 % (35-52); HEMOGLOBIN 9.3 g/dL (11.5-16.0); LYMPHOCYTES # (AUTO) 1.2 10^3/uL (1.0-4.0); LYMPHOCYTES % (AUTO) 23 % (12-44); MEAN CORPUSCULAR HEMOGLOBIN 29 pg (25-34); MEAN CORPUSCULAR HGB CONC 33 g/dL (32-36); MEAN CORPUSCULAR VOLUME 89 fL (80-99); MEAN PLATELET VOLUME 9.5 fL (9.0-12.2); MONOCYTES # (AUTO) 0.3 10^3/uL (0.0-1.0); MONOCYTES % (AUTO) 6 % (0-12); NEUTROPHILS # (AUTO) 3.4 10^3/uL (1.8-7.8); NEUTROPHILS % (AUTO) 65 % (42-75); WHITE BLOOD COUNT 5.3 10^3/uL (4.3-11.0)
[2022-05-14 10:59] LABS: PLATELET COUNT 146 10^3/uL (130-400)
== END ==
LOC: SDC 10:15
PROVIDERS: ATTEND Internal Medicine
DX: N18.4 Chronic kidney disease, stage 4 (severe) (principal)
CPT/HCPCS: 36415; 36591; 81000; 83970; 85025; 87077; 87088; 87186

== ENCOUNTER → 2022-06-06 | Outpatient (CLI) | payer MEDICARE, MEDICAID ==
[2022-06-06 12:00] VITALS: BP 101/63
[2022-06-06 12:28] LABS: ALBUMIN 3.4 GM/DL (3.2-4.5); CALCIUM 9.1 MG/DL (8.5-10.1); CREATININE SERUM 2.95 MG/DL (0.60-1.30); PHOSPHORUS 4.7 MG/DL (2.3-4.7); POTASSIUM 4.1 MMOL/L (3.6-5.0)
== END ==
LOC: SDC 11:25
PROVIDERS: ATTEND Internal Medicine
DX: N18.4 Chronic kidney disease, stage 4 (severe) (principal)
CPT/HCPCS: 36415; 36591; 80069; 83735

== ENCOUNTER → 2022-06-06 | Outpatient (CLI) | payer MEDICARE, MEDICAID ==
[2022-06-06 12:00] VITALS: BP 101/63
[2022-06-06 12:31] LABS: ALBUMIN 3.4 GM/DL (3.2-4.5); BILIRUBIN,TOTAL 0.6 MG/DL (0.1-1.0); CALCIUM 9.2 MG/DL (8.5-10.1); CREATININE SERUM 2.98 MG/DL (0.60-1.30); POTASSIUM 4.1 MMOL/L (3.6-5.0); TOTAL PROTEIN 6.8 GM/DL (6.4-8.2)
== END ==
LOC: SDC 11:30
PROVIDERS: ATTEND Internal Medicine Cardiovascular Disease
DX: I12.9 Hypertensive chronic kidney disease with stage 1 through stage 4 chronic kidney disease, or unspecified chronic kidney disease (principal); N18.9 Chronic kidney disease, unspecified; E78.2 Mixed hyperlipidemia; I25.10 Atherosclerotic heart disease of native coronary artery without angina pectoris
CPT/HCPCS: 36415; 80053; 80061

== ENCOUNTER 2022-06-27 15:22 | Outpatient (CLI) | payer MEDICARE, MEDICAID ==
[~2022-06-27] VITALS: Wt 77.0 kg
[2022-06-27 15:00] VITALS: BP 130/65
[2022-06-27 16:13] LABS: POTASSIUM 4.8 MMOL/L (3.6-5.0)
[2022-06-27 16:15] LABS: CALCIUM 8.7 MG/DL (8.5-10.1)
[2022-06-27 16:19] LABS: CREATININE SERUM 3.06 MG/DL (0.60-1.30)
== END 2022-06-27 15:50 ==
LOC: LAB 15:22 → SDC 15:50
PROVIDERS: ATTEND Urology
DX: E87.1 Hypo-osmolality and hyponatremia (principal); Z01.818 Encounter for other preprocedural examination
CPT/HCPCS: 36415; 36591; 80048

== ENCOUNTER → 2022-07-29 | Outpatient (CLI) | payer MEDICARE, MEDICAID ==
[~2022-07-29] VITALS: Ht 157.5 cm; Wt 79.1 kg
[2022-07-29 12:35] VITALS: BP 145/72
[2022-07-29 12:48] LABS: BASOPHILS % (AUTO) 0 % (0-10); EOSINOPHILS # (AUTO) 0.2 10^3/uL (0.0-0.3); EOSINOPHILS % (AUTO) 3 % (0-10); HEMATOCRIT 27 % (35-52); HEMOGLOBIN 8.8 g/dL (11.5-16.0); LYMPHOCYTES # (AUTO) 1.4 10^3/uL (1.0-4.0); LYMPHOCYTES % (AUTO) 24 % (12-44); MEAN CORPUSCULAR HEMOGLOBIN 30 pg (25-34); MEAN CORPUSCULAR HGB CONC 33 g/dL (32-36); MEAN CORPUSCULAR VOLUME 91 fL (80-99); MEAN PLATELET VOLUME 10.1 fL (9.0-12.2); MONOCYTES # (AUTO) 0.4 10^3/uL (0.0-1.0); MONOCYTES % (AUTO) 7 % (0-12); NEUTROPHILS # (AUTO) 3.7 10^3/uL (1.8-7.8); NEUTROPHILS % (AUTO) 65 % (42-75); PLATELET COUNT 143 10^3/uL (130-400); WHITE BLOOD COUNT 5.8 10^3/uL (4.3-11.0)
[2022-07-29 13:02] LABS: ALBUMIN 3.3 GM/DL (3.2-4.5)
[2022-07-29 13:03] LABS: POTASSIUM 5.2 MMOL/L (3.6-5.0)
[2022-07-29 13:04] LABS: CALCIUM 8.6 MG/DL (8.5-10.1)
[2022-07-29 13:08] LABS: CREATININE SERUM 2.9 MG/DL (0.60-1.30); PHOSPHORUS 4.7 MG/DL (2.3-4.7)
[2022-07-29 13:11] LABS: MAGNESIUM 2.2 MG/DL (1.6-2.4)
== END ==
LOC: SDC 12:01
PROVIDERS: ATTEND Internal Medicine
DX: N18.4 Chronic kidney disease, stage 4 (severe) (principal)
CPT/HCPCS: 36415; 36591; 80069; 83735; 85025

== ENCOUNTER → 2022-08-13 | Outpatient (CLI) | payer MEDICARE, MEDICAID ==
[2022-08-13 12:42] VITALS: BP 157/80
[2022-08-13 13:05] LABS: CALCIUM 9.2 MG/DL (8.5-10.1); CREATININE SERUM 3.17 MG/DL (0.60-1.30); POTASSIUM 4.7 MMOL/L (3.6-5.0)
== END ==
LOC: SDC 12:16
PROVIDERS: ATTEND Internal Medicine
DX: N18.4 Chronic kidney disease, stage 4 (severe) (principal)
CPT/HCPCS: 36415; 36591; 80048

== ENCOUNTER → 2022-08-29 | Outpatient (CLI) | payer MEDICARE, MEDICAID ==
[2022-08-29 13:46] LABS: BILIRUBIN,URINE NEGATIVE (NEGATIVE); CLARITY,URINE CLEAR; COLOR,URINE YELLOW; GLUCOSE, URINE (UA) NEGATIVE (NEGATIVE); KETONES,URINE NEGATIVE (NEGATIVE); LEUKOCYTE ESTERASE ,URINE 1+ (NEGATIVE); NITRITE,URINE NEGATIVE (NEGATIVE); PH,URINE 7.5 (5-9); PROTEIN,URINE 3+ (NEGATIVE)
[2022-08-29 14:12] LABS: BACTERIA,URINE MODERATE /HPF; RBC,URINE 0-2 /HPF
== END ==
LOC: SDC 13:10
PROVIDERS: ATTEND Internal Medicine
DX: N18.4 Chronic kidney disease, stage 4 (severe) (principal)
CPT/HCPCS: 81000; 82570; 84156; 87077; 87088; 87186

== ENCOUNTER → 2022-08-29 | Outpatient (CLI) | payer MEDICARE, MEDICAID ==
[2022-08-29 13:20] VITALS: BP 134/77
[2022-08-29 14:01] LABS: BASOPHILS % (AUTO) 0 % (0-10); EOSINOPHILS # (AUTO) 0.2 10^3/uL (0.0-0.3); EOSINOPHILS % (AUTO) 3 % (0-10); HEMATOCRIT 29 % (35-52); HEMOGLOBIN 9.9 g/dL (11.5-16.0); LYMPHOCYTES # (AUTO) 1.9 10^3/uL (1.0-4.0); LYMPHOCYTES % (AUTO) 29 % (12-44); MEAN CORPUSCULAR HEMOGLOBIN 31 pg (25-34); MEAN CORPUSCULAR HGB CONC 35 g/dL (32-36); MEAN CORPUSCULAR VOLUME 89 fL (80-99); MEAN PLATELET VOLUME 10.5 fL (9.0-12.2); MONOCYTES # (AUTO) 0.4 10^3/uL (0.0-1.0); MONOCYTES % (AUTO) 6 % (0-12); NEUTROPHILS % (AUTO) 62 % (42-75); PLATELET COUNT 204 10^3/uL (130-400); WHITE BLOOD COUNT 6.4 10^3/uL (4.3-11.0)
[2022-08-29 14:11] LABS: ALBUMIN 3.4 GM/DL (3.2-4.5); POTASSIUM 4.3 MMOL/L (3.6-5.0)
[2022-08-29 14:12] LABS: CALCIUM 9.1 MG/DL (8.5-10.1)
[2022-08-29 14:13] LABS: TOTAL PROTEIN 6.9 GM/DL (6.4-8.2)
[2022-08-29 14:15] LABS: BILIRUBIN,TOTAL 0.6 MG/DL (0.1-1.0)
[2022-08-29 14:17] LABS: CREATININE SERUM 3.71 MG/DL (0.60-1.30); PHOSPHORUS 5.3 MG/DL (2.3-4.7)
[2022-08-29 14:20] LABS: MAGNESIUM 2.5 MG/DL (1.6-2.4)
== END ==
LOC: SDC 13:15
PROVIDERS: ATTEND Pediatrics
DX: N18.4 Chronic kidney disease, stage 4 (severe) (principal)
CPT/HCPCS: 36415; 36591; 80053; 80069; 82728; 83540; 83550; 83735; 84100; 85025

== ENCOUNTER 2022-09-04 10:00 | Outpatient (RCR) | payer MEDICARE, MEDICAID ==
[~2022-09-04 10:00] MED LIST changes: -INSU100I29 SC; -INSU100I29 SQ; +INSU100I30 SC; +INSU100I30 SQ
== END 2022-09-06 | disposition home or self-care (01) ==
PROVIDERS: ATTEND Pediatrics
DX: I63.512 Cerebral infarction due to unspecified occlusion or stenosis of left middle cerebral artery (principal)

== ENCOUNTER 2022-09-23 10:05 | Outpatient (RCR) | payer MEDICARE, MEDICAID | END 2022-10-06 | disposition home or self-care (01) | PROVIDERS: ATTEND Pediatrics | DX: I63.512 Cerebral infarction due to unspecified occlusion or stenosis of left middle cerebral artery (principal); I10 Essential (primary) hypertension ==

== ENCOUNTER → 2022-10-21 | Outpatient (CLI) | payer MEDICARE, MEDICAID ==
[~2022-10-21] VITALS: Wt 79.1 kg
[2022-10-21 11:30] VITALS: BP 135/76
[2022-10-21 11:41] LABS: BASOPHILS % (AUTO) 1 % (0-10); EOSINOPHILS # (AUTO) 0.2 10^3/uL (0.0-0.3); EOSINOPHILS % (AUTO) 3 % (0-10); HEMATOCRIT 27 % (35-52); LYMPHOCYTES # (AUTO) 1.6 10^3/uL (1.0-4.0); LYMPHOCYTES % (AUTO) 27 % (12-44); MEAN CORPUSCULAR HEMOGLOBIN 31 pg (25-34); MEAN CORPUSCULAR HGB CONC 33 g/dL (32-36); MEAN CORPUSCULAR VOLUME 92 fL (80-99); MEAN PLATELET VOLUME 10.3 fL (9.0-12.2); MONOCYTES # (AUTO) 0.4 10^3/uL (0.0-1.0); MONOCYTES % (AUTO) 7 % (0-12); NEUTROPHILS # (AUTO) 3.6 10^3/uL (1.8-7.8); NEUTROPHILS % (AUTO) 62 % (42-75); PLATELET COUNT 183 10^3/uL (130-400); WHITE BLOOD COUNT 5.9 10^3/uL (4.3-11.0)
[2022-10-21 11:43] LABS: BILIRUBIN,URINE NEGATIVE (NEGATIVE); CLARITY,URINE SL CLOUDY; COLOR,URINE YELLOW; GLUCOSE, URINE (UA) NEGATIVE (NEGATIVE); KETONES,URINE NEGATIVE (NEGATIVE); LEUKOCYTE ESTERASE ,URINE 1+ (NEGATIVE); NITRITE,URINE NEGATIVE (NEGATIVE); PH,URINE 7.5 (5-9); PROTEIN,URINE 3+ (NEGATIVE)
[2022-10-21 11:53] LABS: BACTERIA,URINE TRACE /HPF; SQUAMOUS EPITHELIAL CELL,UR RARE /HPF
[2022-10-21 12:03] LABS: ALBUMIN 3.4 GM/DL (3.2-4.5); CALCIUM 8.7 MG/DL (8.5-10.1); CREATININE SERUM 3.16 MG/DL (0.60-1.30); MAGNESIUM 2.4 MG/DL (1.6-2.4); PHOSPHORUS 5.2 MG/DL (2.3-4.7); POTASSIUM 4.6 MMOL/L (3.6-5.0)
== END ==
LOC: SDC 10:57
PROVIDERS: ATTEND Internal Medicine
DX: N18.4 Chronic kidney disease, stage 4 (severe) (principal)
CPT/HCPCS: 36415; 36591; 80069; 81000; 82652; 83735; 83970; 85025; 87088

== ENCOUNTER → 2023-01-21 | Outpatient (CLI) | payer MEDICARE, MEDICAID ==
[~2023-01-21] VITALS: Wt 79.1 kg
[2023-01-21 12:13] VITALS: BP 115/72
[2023-01-21 12:17] LABS: BASOPHILS % (AUTO) 0 % (0-10); EOSINOPHILS # (AUTO) 0.2 10^3/uL (0.0-0.3); EOSINOPHILS % (AUTO) 3 % (0-10); HEMATOCRIT 24 % (35-52); HEMOGLOBIN 7.4 g/dL (11.5-16.0); LYMPHOCYTES # (AUTO) 1.3 10^3/uL (1.0-4.0); LYMPHOCYTES % (AUTO) 19 % (12-44); MEAN CORPUSCULAR HEMOGLOBIN 30 pg (25-34); MEAN CORPUSCULAR HGB CONC 32 g/dL (32-36); MEAN CORPUSCULAR VOLUME 94 fL (80-99); MEAN PLATELET VOLUME 9.8 fL (9.0-12.2); MONOCYTES # (AUTO) 0.4 10^3/uL (0.0-1.0); MONOCYTES % (AUTO) 7 % (0-12); NEUTROPHILS # (AUTO) 4.8 10^3/uL (1.8-7.8); NEUTROPHILS % (AUTO) 71 % (42-75); PLATELET COUNT 244 10^3/uL (130-400); WHITE BLOOD COUNT 6.8 10^3/uL (4.3-11.0)
[2023-01-21 12:20] LABS: CLARITY,URINE CLEAR; COLOR,URINE YELLOW; GLUCOSE, URINE (UA) NEGATIVE (NEGATIVE); PROTEIN,URINE 3+ (NEGATIVE)
[2023-01-21 12:21] LABS: BACTERIA,URINE FEW /HPF; BILIRUBIN,URINE NEGATIVE (NEGATIVE); KETONES,URINE NEGATIVE (NEGATIVE); LEUKOCYTE ESTERASE ,URINE 1+ (NEGATIVE); NITRITE,URINE NEGATIVE (NEGATIVE); WBC,URINE 25-50 /HPF
[2023-01-21 12:24] LABS: ALBUMIN 3.3 GM/DL (3.2-4.5)
[2023-01-21 12:25] LABS: POTASSIUM 4.8 MMOL/L (3.6-5.0)
[2023-01-21 12:26] LABS: CALCIUM 8.9 MG/DL (8.5-10.1)
[2023-01-21 12:30] LABS: CREATININE SERUM 3.49 MG/DL (0.60-1.30)
[2023-01-21 12:33] LABS: MAGNESIUM 2.5 MG/DL (1.6-2.4)
== END ==
LOC: SDC 11:21
PROVIDERS: ATTEND Internal Medicine
DX: N18.4 Chronic kidney disease, stage 4 (severe) (principal)
CPT/HCPCS: 36415; 36591; 80069; 81000; 82306; 82607; 82746; 83735; 83970; 85025; 87077; 87088; 87186

== ENCOUNTER 2023-01-30 11:20 | Outpatient (CLI) | payer MEDICARE, MEDICAID ==
[2023-01-30 11:30] VITALS: BP 138/68
== END 2023-01-30 12:45 | disposition home or self-care (01) ==
LOC: SDC 11:20
PROVIDERS: ATTEND Internal Medicine
DX: N18.4 Chronic kidney disease, stage 4 (severe) (principal)
CPT/HCPCS: 36415; 36591; 82728; 83540; 83550

== ENCOUNTER → 2023-02-26 | Outpatient (CLI) | payer MEDICARE, MEDICAID ==
[~2023-02-26] VITALS: Ht 160 cm; Wt 79.4 kg
[~2023-02-26] MED LIST changes: -INSU100I48 SC; +INSU100I64 SC
[2023-02-26 12:55] VITALS: BP 108/54
[2023-02-26 13:13] LABS: POTASSIUM 4.8 MMOL/L (3.6-5.0)
[2023-02-26 13:14] LABS: ALBUMIN 3.7 GM/DL (3.2-4.5)
[2023-02-26 13:15] LABS: CALCIUM 9.1 MG/DL (8.5-10.1)
[2023-02-26 13:18] LABS: BILIRUBIN,TOTAL 0.8 MG/DL (0.1-1.0)
[2023-02-26 13:20] LABS: CREATININE SERUM 3.49 MG/DL (0.60-1.30)
== END ==
LOC: SDC 12:06
PROVIDERS: ATTEND Student in an Organized Health Care Education/Training Program
DX: E11.69 Type 2 diabetes mellitus with other specified complication (principal); Z79.4 Long term (current) use of insulin
CPT/HCPCS: 36415; 36591; 80053; 80061; 83036; 84443

== ENCOUNTER → 2023-03-20 | Outpatient (CLI) | payer MEDICARE, MEDICAID ==
[~2023-03-20] MED LIST changes: -PREG50CA65 PO; +PREG50CA66 PO
[2023-03-20 14:02] VITALS: BP 112/53
== END ==
LOC: SDC 13:22
PROVIDERS: ATTEND Internal Medicine
DX: N18.9 Chronic kidney disease, unspecified (principal); D63.1 Anemia in chronic kidney disease

== ENCOUNTER 2023-04-01 10:39 | Outpatient (CLI) | payer MEDICARE, MEDICAID ==
[2023-04-01 11:10] VITALS: BP 128/59
[2023-04-01 11:38] LABS: BASOPHILS % (AUTO) 1 % (0-10); EOSINOPHILS # (AUTO) 0.2 10^3/uL (0.0-0.3); EOSINOPHILS % (AUTO) 3 % (0-10); HEMATOCRIT 27 % (35-52); HEMOGLOBIN 8.9 g/dL (11.5-16.0); LYMPHOCYTES # (AUTO) 1.2 10^3/uL (1.0-4.0); LYMPHOCYTES % (AUTO) 22 % (12-44); MEAN CORPUSCULAR HEMOGLOBIN 30 pg (25-34); MEAN CORPUSCULAR HGB CONC 33 g/dL (32-36); MEAN CORPUSCULAR VOLUME 93 fL (80-99); MEAN PLATELET VOLUME 10.2 fL (9.0-12.2); MONOCYTES # (AUTO) 0.5 10^3/uL (0.0-1.0); MONOCYTES % (AUTO) 8 % (0-12); NEUTROPHILS # (AUTO) 3.7 10^3/uL (1.8-7.8); NEUTROPHILS % (AUTO) 66 % (42-75); PLATELET COUNT 183 10^3/uL (130-400); WHITE BLOOD COUNT 5.7 10^3/uL (4.3-11.0)
[2023-04-01 11:46] LABS: ALBUMIN 3.7 GM/DL (3.2-4.5); CREATININE SERUM 4.46 MG/DL (0.60-1.30); MAGNESIUM 2.5 MG/DL (1.6-2.4); PHOSPHORUS 5.2 MG/DL (2.3-4.7); POTASSIUM 4.8 MMOL/L (3.6-5.0)
== END 2023-04-01 11:10 | disposition home or self-care (01) ==
LOC: SDC 10:39
PROVIDERS: ATTEND Internal Medicine
DX: N18.4 Chronic kidney disease, stage 4 (severe) (principal); D63.1 Anemia in chronic kidney disease
CPT/HCPCS: 36415; 36591; 80069; 83735; 85007; 85025

== ENCOUNTER → 2023-04-03 | Outpatient (CLI) | payer MEDICARE, MEDICAID ==
--- NOTE | 2023-04-03 13:46 | Diagnostic Imaging Report ---
INDICATION: CHRONIC KIDNEY DISEASE STAGE 5 COMPARISON: 06/19/2020. FINDINGS: Frontal and lateral views of the chest demonstrate normal heart size and pulmonary vascularity. The lungs are clear. There are no signs of infiltrate, pleural effusions or pneumothoraces. The visualized osseous structures show no acute abnormalities. Right internal jugular Port-A-Cath is noted with tip in the SVC. IMPRESSION: 1. No acute process. No signs of infiltrates, effusions or pneumothoraces. Dictated by: Dictated on workstation # [id number]
[2023-04-03 21:28] LABS: HEPATITIS C ANTIBODY C Non-Reactive (Non-Reactive)
== END ==
LOC: RAD 12:59
PROVIDERS: ATTEND Internal Medicine
DX: N18.5 Chronic kidney disease, stage 5 (principal)
CPT/HCPCS: 36415; 71046; 80074